=== PATIENT | female | born 1950 | race Caucasian/White ===

== ENCOUNTER 2017-12-15 19:45 | Inpatient (IN) | payer OTHER, MEDICARE ==
[~2017-12-15] VITALS: Ht 165.1 cm; Wt 95.0 kg
--- NOTE | 2017-12-15 20:26 | PD ---
HPI Chief Complaint: Reynolds act Time Seen by Provider: 20:09 Travel History International Travel<30 days: No Contact w/Intl Traveler<30days: No Traveled to known affect area: No History of Present Illness HPI 67-year-old female who was Reynolds acted and brought in for evaluation. Patient was found by social insurance administrator from [facility] at home, unable to care for herself. Patient has no complaint now. Patient does not know why she is in the emergency room. No available past medical history at this point. Unknown current medication. [facility] Social History Tobacco Use: No Allergies-Medications (Allergen,Severity, Reaction): Coded Allergies: No Allergy Information Available (Unverified , 12/15/17) DEMENTIA Reported Meds & Prescriptions Reported Meds & Active Scripts Active Active Prescriptions or Reported Medications Unobtainable Review of Systems General / Constitutional: No: Fever Eyes: No: Visual changes HENT: No: Headaches Cardiovascular: No: Chest Pain or Discomfort Respiratory: No: Shortness of Breath Gastrointestinal: No: Abdominal Pain Genitourinary: No: Dysuria Musculoskeletal: No: Pain Skin: No Rash Neurologic: No: Weakness Psychiatric: No: Depression Endocrine: No: Polydipsia Hematologic/Lymphatic: No: Easy Bruising Physical Exam Narrative GENERAL: Well-nourished, well-developed patient. SKIN: Focused skin assessment warm/dry. HEAD: Normocephalic. EYES: No scleral icterus. No injection or drainage. NECK: Supple, trachea midline. No JVD or lymphadenopathy. CARDIOVASCULAR: Regular rate and rhythm without murmurs, gallops, or rubs. RESPIRATORY: Breath sounds equal bilaterally. No accessory muscle use. GASTROINTESTINAL: Abdomen soft, non-tender, nondistended. MUSCULOSKELETAL: No cyanosis, or edema. BACK: Nontender without obvious deformity. No CVA tenderness. Patient is Neurologic exam: Patient is awake and alert. Patient knows her name, know the president's name, states that the year is 2001. Patient knows she is in the hospital. Patient moves all extremities well. No obvious focal neurological deficit. Data Data Last Documented VS Vital Signs Date Time Temp Pulse Resp B/P (MAP) Pulse Ox O2 Delivery O2 Flow Rate FiO2 12/15/17 20:35 98.0 65 16 198/84 (122) 98 Orders Orders Complete Blood Count With Diff (12/15/17 20:17) Comprehensive Metabolic Panel (12/15/17 20:17) Thyroid Stimulating Hormone (12/15/17 20:17) Urinalysis - C+S If Indicated (12/15/17 20:17) Psych Screen (12/15/17 20:17) Urine Culture (12/15/17 20:30) Potassium Chloride (Kcl) (12/15/17 21:30) Sulfamet-Trimeth Ds 800-160 Mg (Bactrim (12/15/17 21:30) Labs Laboratory Tests Test 12/15/17 20:30 White Blood Count 7.8 TH/MM3 Red Blood Count 4.61 MIL/MM3 Hemoglobin 14.4 GM/DL Hematocrit 40.1 % Mean Corpuscular Volume 86.9 FL Mean Corpuscular Hemoglobin 31.2 PG Mean Corpuscular Hemoglobin Concent 35.9 % Red Cell Distribution Width 13.4 % Platelet Count 253 TH/MM3 Mean Platelet Volume 8.6 FL Neutrophils (%) (Auto) 73.0 % Lymphocytes (%) (Auto) 15.6 % Monocytes (%) (Auto) 5.0 % Eosinophils (%) (Auto) 4.9 % Basophils (%) (Auto) 1.5 % Neutrophils # (Auto) 5.7 TH/MM3 Lymphocytes # (Auto) 1.2 TH/MM3 Monocytes # (Auto) 0.4 TH/MM3 Eosinophils # (Auto) 0.4 TH/MM3 Basophils # (Auto) 0.1 TH/MM3 CBC Comment DIFF FINAL Differential Comment Urine Color YELLOW Urine Turbidity HAZY Urine pH 5.5 Urine Specific [place] 1.024 Urine Protein TRACE mg/dL Urine Glucose (UA) NEG mg/dL Urine Ketones NEG mg/dL Urine Occult Blood NEG Urine Nitrite POS Urine Bilirubin NEG Urine Urobilinogen 2.0 MG/DL Urine Leukocyte Esterase LARGE Urine RBC 6 /hpf Urine WBC 23 /hpf Urine Squamous Epithelial Cells 4 /hpf Urine Bacteria MANY /hpf Urine Mucus FEW /lpf Microscopic Urinalysis Comment CULTURE INDICATED Blood Urea Nitrogen 17 MG/DL Creatinine 1.19 MG/DL Random Glucose 110 MG/DL Total Protein 8.5 GM/DL Albumin 4.1 GM/DL Calcium Level 9.6 MG/DL Alkaline Phosphatase 59 U/L Aspartate Amino Transf (AST/SGOT) 10 U/L Alanine Aminotransferase (ALT/SGPT) 18 U/L Total Bilirubin 0.6 MG/DL Sodium Level 139 MEQ/L Potassium Level 3.2 MEQ/L Chloride Level 102 MEQ/L Carbon Dioxide Level 31.8 MEQ/L Anion Gap 5 MEQ/L Estimat Glomerular Filtration Rate 45 ML/MIN Thyroid Stimulating Hormone 3rd Gen 3.460 uIU/ML MDM Medical Decision Making Medical Screen Exam Complete: Yes Emergency Medical Condition: Yes Interpretation(s) 21:28 PM. CBC within normal limits. Potassium 3.2. Creatinine 1.19. GFR 45. UA positive for WBC and bacteria. Differential Diagnosis Differential diagnosis including dementia, Alzheimer's disease, TIA, CVA, electrolyte imbalance. Narrative Course 67-year-old female was Reynolds acted and brought in for evaluation. Patient was deemed not to be able to care of herself at home. Bactrim DS 1 tablet p.o. given. KCl 40 mEq p.o. given. 21:32 PM. Patient is medically cleared for psychiatric evaluation and disposition. Diagnosis Primary Impression: UTI (urinary tract infection) Qualified Codes: N30.00 - Acute cystitis without hematuria Additional Impression: Hypokalemia Scripts Unable to Obtain Active Prescriptions or Reported Meds Alvin Benitez MD Dec 15, 2017 20:26
[2017-12-15 20:35] VITALS: BP 198/84; PULSE 65; PULSE 87; RESP 16; TEMP 98; O2SAT 98
[2017-12-15 20:46] LABS: BACTERIA, URINE MANY /hpf; BILIRUBIN, URINE NEG (NEG); BLOOD, URINE NEG (NEG); GLUCOSE,URINE NEG (NEG); KETONE, URINE NEG (NEG); MUCUS URINE FEW /lpf (OCC); NITRITE,URINE POS (NEG); PH, URINE 5.5 (5.0-8.5); SQUAMOUS EPITHELIAL CELL URINE 4 /hpf (0-5); URINE COLOR YELLOW (YELLW/STRAW); URINE LEUKOCYTE ESTERASE LARGE (NEG)
[2017-12-15 20:53] LABS: AUTOMATED NEUTROPHIL # 5.7 TH/MM3 (1.8-7.7); BASOPHIL # 0.1 TH/MM3 (0-0.2); BASOPHIL % 1.5 % (0.0-2.0); EOSINOPHIL # 0.4 TH/MM3 (0-0.4); EOSINOPHIL % 4.9 % (0.0-4.0); HEMATOCRIT 40.1 % (35.0-46.0); HEMOGLOBIN 14.4 GM/DL (11.6-15.3); LYMPH % 15.6 % (9.0-44.0); LYMPHOCYTE # 1.2 TH/MM3 (1.0-4.8); MEAN CELL VOLUME 86.9 FL (80.0-100.0); MEAN CORPUSCULAR HEMOGLOBIN 31.2 PG (27.0-34.0); MEAN CORPUSCULAR HGB CONC 35.9 % (32.0-36.0); MEAN PLATELET VOLUME 8.6 FL (7.0-11.0); MONOCYTE # 0.4 TH/MM3 (0-0.9); PLATELET COUNT 253 TH/MM3 (150-450); RED BLOOD COUNT 4.61 MIL/MM3 (4.00-5.30); RED CELL DISTRIBUTION WIDTH 13.4 % (11.6-17.2); WHITE BLOOD COUNT 7.8 TH/MM3 (4.0-11.0)
[2017-12-15 20:58] LABS: ALBUMIN 4.1 GM/DL (3.4-5.0); AST (GOT) 10 U/L (15-37); BICARBONATE 31.8 MEQ/L (21.0-32.0); BLOOD UREA NITROGEN 17 MG/DL (7-18); CALCIUM 9.6 MG/DL (8.5-10.1); CHLORIDE 102 MEQ/L (98-107); CREATININE 1.19 MG/DL (0.50-1.00); GLOMERULAR FILTRATION RATE 45 ML/MIN (>89); GLUCOSE,RANDOM 110 MG/DL (74-106); SODIUM (NA) 139 MEQ/L (136-145)
[2017-12-15 20:59] LABS: ALT (GPT) 18 U/L (10-53)
[2017-12-15 21:09] LABS: ALKALINE PHOSPHATASE 59 U/L (45-117); TOTAL BILIRUBIN ADULT 0.6 MG/DL (0.2-1.0); TOTAL PROTEIN 8.5 GM/DL (6.4-8.2)
[2017-12-15] MEDS ORDERED: POTASSIUM CHLORIDE 20 MEQ CONTROLLED RELEASE TAB PO ONE (21:30)
[2017-12-15] MEDS ORDERED: SULFAMETHOXAZOLE-TRIMETHOPRIM DS 800-160 MG TAB PO ONE (21:30)
[2017-12-16 07:30] VITALS: BP 180/77; PULSE 69; RESP 19; O2SAT 97
[2017-12-16 13:00] VITALS: BP 177/87; PULSE 72; RESP 20; O2SAT 97
--- NOTE | 2017-12-16 19:11 | PD ---
History of Present Illness Chief Complaint: Psychiatric Symptoms Time Seen by Provider: 18:30 Travel History International Travel<30 Days: No Contact w/Intl Traveler<30days: No Known affected area: No Legal Status Legal Status: Reynolds Act Reynolds Act Signed By: Andry Conte History of Present Illness: History of Present Illness HPI 67-year-old female with unknown psychiatric history who presents to ED under a Reynolds act initiated by law enforcement. The Reynolds act states that the police responded to a call in reference to Reynolds act. The officer states he spoke with the [facility] employee who advised him she arrived on seen in reference to a welfare check and that she believes Tatum was not taking her prescribed medication. The [facility] employee advised Tatum has early stages of Alzheimer's and is unable to care for herself. Electronic medical record is reviewed. No previous contact with [facility] psychiatry Department. The patient has been monitored in secure environment with no behavioral dysregulation. The patient response to her name but is unable to answer any questions. She has significant problems with word finding. Not oriented to time or place. She cannot tell me why she is in the emergency room. Unable to provide any information about her history or medications. Patient is obviously presenting symptoms of dementia. The patient does not appear to be responding to internal stimuli, not manic. Does not present any objective symptoms of depression. She has verbalized no suicidal or homicidal ideation. The patient does not take criteria for Reynolds act. Psychiatric History Psychiatric History Hx Psychiatric Treatment: Unable to obtain Social History Apparently was living at home with her mother. Hx Alcohol Use: Yes (RARELY) Hx Tobacco Use: No Hx Substance Use: No Family Psychiatric History Unable to obtain Allergies-Medications (Allergen,Severity, Reaction): Coded Allergies: No Allergy Information Available (Unverified , 12/15/17) DEMENTIA Reported Meds & Prescriptions Reported Meds & Active Scripts Active Active Prescriptions or Reported Medications Unobtainable Review of Systems ROS Limitations: Poor Historian Mental Status Examination Appearance: Appropriate (dressed in [facility] with fair hygiene) Consciousness: Alert Orientation: Person Motor Activity: Normal gait Speech: Other (marked difficulty with words) Fund of Knowledge: Poor Attention and Concentration: Easily Distracted Memory: Impaired Mood: Appropriate Affect: Appropriate Thought Process & Associations: Other (fragmented.) Thought Content: Appropriate Hallucination Type: None Delusion Type: None Suicidal Ideation: No Suicidal Plan: No Suicidal Intention: No Homicidal Ideation: No Homicidal Plan: No Homicidal Intention: No Insight: Poor Judgment: Poor MDM Medical Decision Making Medical Record Reviewed: Yes Assessment/Plan 67-year-old female with reported history of dementia who was found in her home with her mother who also has dementia by a [facility] employee. The [facility] employee determined that the patient was unable to care for herself and called the police and the patient was placed under Reynolds act. At this time there is no history available and the patient cannot provide a cogent history. She has been monitored and has not been agitated, does not appear to be internally stimulated, does not appear significantly depressed, does not appear manic or hypomanic. This patient does not meet criteria for Reynolds act at this time and will not benefit from inpatient psychiatric treatment. However due to her cognitive impairment secondary to dementia she is unable to care for herself and requires placement. Case management will be involved to assist with placement. Her mother is also here at the hospital and [facility] is attempting placement for her as well. The Reynolds act is lifted Orders Orders Complete Blood Count With Diff (12/15/17 20:17) Comprehensive Metabolic Panel (12/15/17 20:17) Thyroid Stimulating Hormone (12/15/17 20:17) Urinalysis - C+S If Indicated (12/15/17 20:17) Psych Screen (12/15/17 20:17) Urine Culture (12/15/17 20:30) Potassium Chloride (Kcl) (12/15/17 21:30) Sulfamet-Trimeth Ds 800-160 Mg (Bactrim (12/15/17 21:30) Diet Regular Basic (12/16/17 Breakfast) Diet Regular Basic (12/16/17 Lunch) Results Vital Signs Date Time Temp Pulse Resp B/P (MAP) Pulse Ox O2 Delivery O2 Flow Rate FiO2 12/16/17 13:00 72 20 177/87 (117) 97 Room Air 12/16/17 07:30 69 19 180/77 (111) 97 Room Air 12/15/17 20:35 98.0 65 16 198/84 (122) 98 Laboratory Tests Test 2/17/18 20:30 White Blood Count 7.8 Red Blood Count 4.61 Hemoglobin 14.4 Hematocrit 40.1 Mean Corpuscular Volume 86.9 Mean Corpuscular Hemoglobin 31.2 Mean Corpuscular Hemoglobin Concent 35.9 Red Cell Distribution Width 13.4 Platelet Count 253 Mean Platelet Volume 8.6 Neutrophils (%) (Auto) 73.0 Lymphocytes (%) (Auto) 15.6 Monocytes (%) (Auto) 5.0 Eosinophils (%) (Auto) 4.9 Basophils (%) (Auto) 1.5 Neutrophils # (Auto) 5.7 Lymphocytes # (Auto) 1.2 Monocytes # (Auto) 0.4 Eosinophils # (Auto) 0.4 Basophils # (Auto) 0.1 CBC Comment DIFF FINAL Differential Comment Urine Color YELLOW Urine Turbidity HAZY Urine pH 5.5 Urine Specific [place] 1.024 Urine Protein TRACE Urine Glucose (UA) NEG Urine Ketones NEG Urine Occult Blood NEG Urine Nitrite POS Urine Bilirubin NEG Urine Urobilinogen 2.0 Urine Leukocyte Esterase LARGE Urine RBC 6 Urine WBC 23 Urine Squamous Epithelial Cells 4 Urine Bacteria MANY Urine Mucus FEW Microscopic Urinalysis Comment CULTURE INDICATED Blood Urea Nitrogen 17 Creatinine 1.19 Random Glucose 110 Total Protein 8.5 Albumin 4.1 Calcium Level 9.6 Alkaline Phosphatase 59 Aspartate Amino Transf (AST/SGOT) 10 Alanine Aminotransferase (ALT/SGPT) 18 Total Bilirubin 0.6 Sodium Level 139 Potassium Level 3.2 Chloride Level 102 Carbon Dioxide Level 31.8 Anion Gap 5 Estimat Glomerular Filtration Rate 45 Thyroid Stimulating Hormone 3rd Gen 3.460 Date/Time Source Procedure Growth Status 12/15/17 20:30 Urine Random Urine Urine Culture - Preliminary Gram Negative Oni Resulted Diagnosis Primary Impression: UTI (urinary tract infection) Additional Impressions: Hypokalemia Dementia Psychiatrically Cleared: Yes Prescriptions Unable to Obtain Active Prescriptions or Reported Meds Problem Qualifiers Primary Impression: UTI (urinary tract infection) Qualified Codes: N30.00 - Acute cystitis without hematuria Additional Impressions: Dementia Qualified Codes: F03.90 - Unspecified dementia without behavioral disturbance Yuliana Do Dec 16, 2017 19:11
--- NOTE | 2017-12-16 21:33 | PD ---
Physical Exam Narrative This is an addendum to previous dictation. Patient was seen by psychiatric team and Reynolds act was lifted. Patient needs placement secondary to cognitive problem. Data Data Last Documented VS Vital Signs Date Time Temp Pulse Resp B/P (MAP) Pulse Ox O2 Delivery O2 Flow Rate FiO2 12/16/17 13:00 72 20 177/87 (117) 97 Room Air 12/15/17 20:35 98.0 Orders Orders Complete Blood Count With Diff (12/15/17 20:17) Comprehensive Metabolic Panel (12/15/17 20:17) Thyroid Stimulating Hormone (12/15/17 20:17) Urinalysis - C+S If Indicated (12/15/17 20:17) Psych Screen (12/15/17 20:17) Urine Culture (12/15/17 20:30) Potassium Chloride (Kcl) (12/15/17 21:30) Sulfamet-Trimeth Ds 800-160 Mg (Bactrim (12/15/17 21:30) Diet Regular Basic (12/16/17 Breakfast) Diet Regular Basic (12/16/17 Lunch) Admit Order (Ed Use Only) (12/16/17 21:33) Labs Laboratory Tests Test 12/15/17 20:30 White Blood Count 7.8 TH/MM3 Red Blood Count 4.61 MIL/MM3 Hemoglobin 14.4 GM/DL Hematocrit 40.1 % Mean Corpuscular Volume 86.9 FL Mean Corpuscular Hemoglobin 31.2 PG Mean Corpuscular Hemoglobin Concent 35.9 % Red Cell Distribution Width 13.4 % Platelet Count 253 TH/MM3 Mean Platelet Volume 8.6 FL Neutrophils (%) (Auto) 73.0 % Lymphocytes (%) (Auto) 15.6 % Monocytes (%) (Auto) 5.0 % Eosinophils (%) (Auto) 4.9 % Basophils (%) (Auto) 1.5 % Neutrophils # (Auto) 5.7 TH/MM3 Lymphocytes # (Auto) 1.2 TH/MM3 Monocytes # (Auto) 0.4 TH/MM3 Eosinophils # (Auto) 0.4 TH/MM3 Basophils # (Auto) 0.1 TH/MM3 CBC Comment DIFF FINAL Differential Comment Urine Color YELLOW Urine Turbidity HAZY Urine pH 5.5 Urine Specific [place] 1.024 Urine Protein TRACE mg/dL Urine Glucose (UA) NEG mg/dL Urine Ketones NEG mg/dL Urine Occult Blood NEG Urine Nitrite POS Urine Bilirubin NEG Urine Urobilinogen 2.0 MG/DL Urine Leukocyte Esterase LARGE Urine RBC 6 /hpf Urine WBC 23 /hpf Urine Squamous Epithelial Cells 4 /hpf Urine Bacteria MANY /hpf Urine Mucus FEW /lpf Microscopic Urinalysis Comment CULTURE INDICATED Blood Urea Nitrogen 17 MG/DL Creatinine 1.19 MG/DL Random Glucose 110 MG/DL Total Protein 8.5 GM/DL Albumin 4.1 GM/DL Calcium Level 9.6 MG/DL Alkaline Phosphatase 59 U/L Aspartate Amino Transf (AST/SGOT) 10 U/L Alanine Aminotransferase (ALT/SGPT) 18 U/L Total Bilirubin 0.6 MG/DL Sodium Level 139 MEQ/L Potassium Level 3.2 MEQ/L Chloride Level 102 MEQ/L Carbon Dioxide Level 31.8 MEQ/L Anion Gap 5 MEQ/L Estimat Glomerular Filtration Rate 45 ML/MIN Thyroid Stimulating Hormone 3rd Gen 3.460 uIU/ML MDM Supervised Visit with DOV: Yes Narrative Course Patient was cleared by medical team. Patient will clear by psychiatric team and Reynolds act was lifted. Patient will be admitted for placement. Diagnosis Primary Impression: UTI (urinary tract infection) Qualified Codes: N30.00 - Acute cystitis without hematuria Additional Impressions: Dementia Qualified Codes: F03.90 - Unspecified dementia without behavioral disturbance Hypokalemia Admitting Information Admitting Physician Requests: Observation Scripts Unable to Obtain Active Prescriptions or Reported Meds Alvin Benitez MD Dec 16, 2017 21:33
[2017-12-16 21:53] VITALS: BP 168/66; PULSE 68; RESP 20; TEMP 98; O2SAT 97
[2017-12-16] MEDS ORDERED: SODIUM CHLOR 0.9% 1000 ML INJ 1,000 ML IV SCH (22:42)
[2017-12-16] MEDS ORDERED: SODIUM CHLORIDE 0.9% FLUSH 10 ML FLUSH IV FLUSH PRN (22:45)
[2017-12-16] MEDS ORDERED: NALOXONE HCL 0.4 MG/ML AMP IV PUSH PRN (22:45)
[2017-12-16] MEDS ORDERED: ONDANSETRON HCL 4 MG/2 ML VIAL IVP PRN (22:45)
[2017-12-16] MEDS ORDERED: ACETAMINOPHEN 325 MG TAB PO PRN (22:45)
--- NOTE | 2017-12-16 23:06 | HHI.HP ---
[facility] Service [facility] Physician Unknown Admission Diagnosis UTI. Dementia. Hypokalemia. Diagnoses: Travel History International Travel<30 Days: No Contact w/Intl Traveler <30 Da: No Traveled to Known Affected Are: No History of Present Illness 67-year-old female initially brought to the emergency department under Reynolds act for evaluation. Patient was found by a social work therapist from [facility] at home, unable to care for herself. She reportedly lives with her mother who is also unable to care for herself. The patient has no complaints at this time. Her Reynolds act was lifted and she will need placement. The patient is oriented only to self and can tell me that she is in the state of [place]. She is not aware of city, current location or time/date. She cannot remember if she takes any medications and cannot provide any additional information. Review of Systems ROS Limitations: Clinical Condition Except as stated in HPI: all other systems reviewed are Neg Denies fever or chills Denies blurry vision, otorrhea, rhinorrhea Denies sore throat and cough No chest pain, palpitations No shortness of breath or wheezing No abdominal pain Denies constipation/diarrhea/nausea/vomiting Denies muscle pain Denies focal weakness No rashes Past Family Social History Past Medical History Unable to obtain Past Surgical History Unable to obtain Reported Medications Reported Meds & Active Scripts Active Active Prescriptions or Reported Medications Unobtainable Allergies: Coded Allergies: No Allergy Information Available (Unverified , 12/15/17) DEMENTIA Family History Patient does not know Social History Denies alcohol, tobacco and illicit drugs Physical Exam Vital Signs Vital Signs Date Time Temp Pulse Resp B/P (MAP) Pulse Ox O2 Delivery O2 Flow Rate FiO2 12/16/17 21:53 98.0 68 20 168/66 (100) 97 Room Air 12/16/17 13:00 72 20 177/87 (117) 97 Room Air 12/16/17 07:30 69 19 180/77 (111) 97 Room Air Physical Exam GENERAL: female lying in bed SKIN: No rashes, ecchymoses or lesions. Cool and dry. HEAD: Atraumatic. Normocephalic. No temporal or scalp tenderness. EYES: Pupils equal round and reactive. Extraocular motions intact. No scleral icterus. No injection or drainage. ENT: Nose without bleeding, purulent drainage or septal hematoma. Throat without erythema, tonsillar hypertrophy or exudate. Uvula midline. Airway patent. NECK: Trachea midline. No JVD or lymphadenopathy. Supple, nontender, no meningeal signs. CARDIOVASCULAR: Regular rate and rhythm without murmurs, gallops, or rubs. RESPIRATORY: Clear to auscultation. Breath sounds equal bilaterally. No wheezes , rales, or rhonchi. GASTROINTESTINAL: Abdomen soft, non-tender, nondistended. No hepato-splenomegaly , or palpable masses. No guarding. MUSCULOSKELETAL: Extremities without clubbing, cyanosis, or edema. No joint tenderness, effusion, or edema noted. No calf tenderness. NEUROLOGICAL: Awake and alert. Cranial nerves II through XII intact. Motor and sensory grossly within normal limits. Normal speech. A&O 1, to self only. Laboratory Date/Time Source Procedure Growth Status 12/15/17 20:30 Urine Random Urine Urine Culture - Preliminary Gram Negative Oni Resulted Result Diagram: 12/15/17202912/15/172029 Caprini VTE Risk Assessment Caprini VTE Risk Assessment: Mod/High Risk (score >= 2) Caprini Risk Assessment Model Point Value = 1 Point Value = 2 Point Value = 3 Point Value = 5 Age 41-60 Minor surgery BMI > 25 kg/m2 Swollen legs Varicose veins or History of unexplained or recurrent spontaneous Oral contraceptives or hormone replacement Sepsis (< 1 month) Serious lung disease, including pneumonia (< 1 month) Abnormal pulmonary function Acute myocardial infarction Congestive heart failure (< 1 month) History of inflammatory bowel disease Medical patient at bed rest Age 61-74 Arthroscopic surgery Major open surgery (> 45 min) Laparoscopic surgery (> 45 min) Malignancy Confined to bed (> 72 hours) Immobilizing plaster cast Central venous access Age >= 75 History of VTE Family history of VTE Factor V Leiden Prothrombin [id number] Lupus anticoagulant Anticardiolipin antibodies Elevated serum homocysteine Heparin-induced thrombocytopenia Other congenital or acquired thrombophilia Stroke (< 1 month) Elective arthroplasty Hip, pelvis, or leg fracture Acute spinal cord injury (< 1 month) Prophylaxis Regimen Total Risk Factor Score Risk Level Prophylaxis Regimen 0-1 Low Early ambulation 2 Moderate Order ONE of the following: *Sequential Compression Device (SCD) *Heparin 5000 units SQ BID 3-4 Higher Order ONE of the following medications: *Heparin 5000 units SQ TID *Enoxaparin/Lovenox 40 mg SQ daily (WT < 150 kg, CrCl > 30 mL/min) *Enoxaparin/Lovenox 30 mg SQ daily (WT < 150 kg, CrCl > 10-29 mL/min) *Enoxaparin/Lovenox 30 mg SQ BID (WT < 150 kg, CrCl > 30 mL/min) AND/OR *Sequential Compression Device (SCD) 5 or more Highest Order ONE of the following medications: *Heparin 5000 units SQ TID (Preferred with Epidurals) *Enoxaparin/Lovenox 40 mg SQ daily (WT < 150 kg, CrCl > 30 mL/min) *Enoxaparin/Lovenox 30 mg SQ daily (WT < 150 kg, CrCl > 10-29 mL/min) *Enoxaparin/Lovenox 30 mg SQ BID (WT < 150 kg, CrCl > 30 mL/min) AND *Sequential Compression Device (SCD) Assessment and Plan Assessment and Plan Assessment/plan: 1. Urinary tract infection UA consistent with UTI with large leukocyte esterase, 23 WBCs, many bacteria, nitrite positive Urine culture pending Rocephin 2. Unable to care for self Reynolds act lifted Case management consulted to assist with placement 3. Hypokalemia Status post by mouth repletion Follow-up [facility] Heart healthy diet Electrolytes: As above Peggy Cordon MD Dec 16, 2017 23:06
[2017-12-16] MEDS ORDERED: POTASSIUM CHLORIDE 20 MEQ CONTROLLED RELEASE TAB PO ONE (23:15)
[2017-12-17] VITALS (9 sets, daily range): BP systolic 133–201; BP diastolic 68–88; PULSE 59–91; RESP 18; TEMP 97.6–98.8; O2SAT 91–99
[2017-12-17] MEDS ORDERED: cefTRIAXone INJ 1,000 MG in SODIUM CHLORIDE 0.9% INJ 100 ML IV SCH ×2
[2017-12-17 05:18] LABS: AUTOMATED NEUTROPHIL # 4.1 TH/MM3 (1.8-7.7); BASOPHIL # 0.1 TH/MM3 (0-0.2); BASOPHIL % 1.2 % (0.0-2.0); EOSINOPHIL # 0.3 TH/MM3 (0-0.4); EOSINOPHIL % 5.8 % (0.0-4.0); HEMATOCRIT 40.5 % (35.0-46.0); HEMOGLOBIN 13.9 GM/DL (11.6-15.3); LYMPH % 19.1 % (9.0-44.0); LYMPHOCYTE # 1.2 TH/MM3 (1.0-4.8); MEAN CORPUSCULAR HEMOGLOBIN 30.2 PG (27.0-34.0); MEAN CORPUSCULAR HGB CONC 34.4 % (32.0-36.0); MEAN PLATELET VOLUME 8.4 FL (7.0-11.0); MONO % 5.4 % (0.0-8.0); MONOCYTE # 0.3 TH/MM3 (0-0.9); NEUT % 68.5 % (16.0-70.0); PLATELET COUNT 241 TH/MM3 (150-450); RED CELL DISTRIBUTION WIDTH 13.5 % (11.6-17.2)
[2017-12-17 05:45] LABS: BICARBONATE 27.2 MEQ/L (21.0-32.0); CALCIUM 9.2 MG/DL (8.5-10.1); CREATININE 1.02 MG/DL (0.50-1.00)
[2017-12-17] MEDS: HEPARIN SODIUM - SQ 10,000 UNITS/ML VIAL SQ SCH ×3 (06:28→22:05)
[2017-12-17] MEDS ORDERED: ENALAPRILAT 1.25 MG/ML VIAL IV PUSH PRN (08:15)
[2017-12-17] MEDS: SODIUM CHLORIDE 0.9% FLUSH 10 ML FLUSH IV FLUSH SCH ×2 (09:08→21:00)
[2017-12-17] MEDS: POTASSIUM CHLORIDE 10 MEQ CONTROLLED RELEASE TAB PO SCH ×2 (09:08→22:06)
[2017-12-17] MEDS: hydrALAZINE HCL 10 MG TAB PO PRN ×2 (09:08→15:46)
[2017-12-17 10:17] LABS: MAGNESIUM 2.1 MG/DL (1.5-2.5)
--- NOTE | 2017-12-17 12:35 | HHI.PR ---
Subjective Remarks Follow-up on patient with dementia, UTI. Patient seen and examined. Patient denies any complaints overnight. She denies any fever or chills. Denies any chest pain or shortness of breath. Denies any nausea, vomiting or abdominal pain. She denies any dysuria, urgency, frequency or hematuria. Oriented to self only. She is very preoccupied with getting home to her cats. Objective Vitals Vital Signs Date Time Temp Pulse Resp B/P (MAP) Pulse Ox O2 Delivery O2 Flow Rate FiO2 12/17/17 11:24 98.0 82 18 133/71 (91) 95 12/17/17 07:35 97.6 60 18 186/81 (116) 94 12/17/17 05:30 98.4 78 18 138/78 (98) 98 12/17/17 00:02 98.4 59 18 144/70 (94) 99 12/16/17 21:53 98.0 68 20 168/66 (100) 97 Room Air 12/16/17 13:00 72 20 177/87 (117) 97 Room Air I/O 12/16/17 12/16/17 12/16/17 12/17/17 12/17/17 12/17/17 07:00 15:00 23:00 07:00 15:00 23:00 Intake Total 480 ml 400 ml Balance 480 ml 400 ml Intake Oral 480 ml 400 ml Result Diagram: 12/17/17 0500 12/17/17 0500 Objective Remarks GENERAL: Well-developed well-nourished female. In no acute distress. Sitting up in bed eating breakfast. Awake and alert. SKIN: Cool and dry. HEAD: Atraumatic. Normocephalic. EYES: Pupils equal round and reactive. Extraocular motions intact. No scleral icterus. No injection or drainage. ENT: Nose without bleeding or purulent drainage. Airway patent. MMM. NECK: Trachea midline. CARDIOVASCULAR: Regular rate and rhythm without murmurs, gallops, or rubs. RESPIRATORY: Clear to auscultation. Breath sounds equal bilaterally. No wheezes , rales, or rhonchi. GASTROINTESTINAL: Abdomen soft, non-tender, nondistended. MUSCULOSKELETAL: Extremities without clubbing, cyanosis, or edema. NEUROLOGICAL: Awake and alert. Oriented to self only. Cranial nerves II through XII grossly intact. Motor and sensory grossly within normal limits. Nonfocal. Normal speech. Medications and IVs Current Medications Medications (Trade) Dose Ordered Sig/Yancy Route Start Time Stop Time Status Last Admin (NS Flush) 2 ml UNSCH PRN IV FLUSH 12/16/17 22:45 (NS Flush) 2 ml BID IV FLUSH 12/17/17 09:00 12/17/17 09:08 (Tylenol) 650 mg Q4H PRN PO 12/16/17 22:45 (Zofran Inj) 4 mg Q6H PRN IVP 12/16/17 22:45 (Narcan Inj) 0.4 mg UNSCH PRN IV PUSH 12/16/17 22:45 Ceftriaxone Sodium 1000 mg/ Sodium Chloride 100 ml @ 200 mls/hr Q24H IV 12/17/17 00:00 (Heparin Inj) 5,000 units Q8HR SQ 12/17/17 06:00 12/17/17 06:28 (KCl) 40 meq Q12HR PO 12/17/17 09:00 12/17/17 21:01 12/17/17 09:08 (Apresoline) 10 mg Q6HR PRN PO 12/17/17 08:15 12/17/17 09:08 (Vasotec Inj) 1.25 mg Q6H PRN IV PUSH 12/17/17 08:15 A/P Assessment and Plan 67-year-old female with dementia Urinary tract infection UA consistent with UTI with large leukocyte esterase, 23 WBCs, many bacteria, nitrite positive. Started on IV Rocephin. Urine culture with E Coli, pansensitive. Discontinue Rocephin. Start Macrobid BID. Unable to care for self Dementia Admitted under Reynolds act by the department of social services aide. Evaluated by psychiatry and reynolds act lifted. Consult Neurology, appreciate assistance TSH WNL. Obtain B12, folate level and check RPR. Obtain CT brain. Case management consulted to assist with placement Evaluated by PT, no needs. Hypokalemia Persistent despite by mouth repletion Repeat po repletion Mag level 2.1 Repeat BMP in am ERIKA Suspect due to poor oral intake Improving s/p IVF Avoid nephrotoxic agents Repeat BMP in am FEN Heart healthy diet Electrolytes: As above Heparin Discharge Planning Discharge pending placement and Neurology assessment/recommendations Edwige Ibarra Dec 17, 2017 12:35
[2017-12-17] MEDS ORDERED: NITROFURANTOIN MONOHYD MACROCR 100 MG CAP PO ONE (12:45)
--- NOTE | 2017-12-17 16:33 | RADRPT ---
EXAM DATE/TIME: 12/17/2017 16:10 [facility] COMPARISON: No previous studies available for comparison. INDICATIONS : Altered mental status RADIATION DOSE: 56.35 CTDIvol (mGy) MEDICAL HISTORY : Dementia. Diabetes SURGICAL HISTORY : None. ENCOUNTER: Initial ACUITY: 1 day PAIN SCALE: 4/10 LOCATION: cranial TECHNIQUE: Multiple contiguous axial images were obtained of the head. Using automated exposure control and adj ustment of the mA and/or kV according to patient size, radiation dose was kept as low as reasonably a chievable to obtain optimal diagnostic quality images. DICOM format image data is available electro nically for review and comparison. FINDINGS: The examination is abnormal demonstrating a left parasagittal convexity frontal lobe a heterogeneousl y dense mass which measures 5.4 x 4.5 cm. This causes 8 mm midline shift of the anterior ventricles and significant posterior displacement of the left frontal horn. There is moderate amount of surroun ding edema extending to the high convexity left frontal and mid convexity parietal region. No evidence of hemorrhage. No extra-axial fluid collections. There is evidence of downward herniati on with loss of the circumflex pontine cisterns and flattening of the lateral margins of the telencep halon and nasima. The posterior fossa structures are grossly intact. Wide windows for bony detail dem onstrate the calvarium to be intact. CONCLUSION: Greater than 5 cm left frontal mass with surrounding edema causing significant midline shift towards the right and downward transtentorial mass effect. Otis Huff MD on December 17, 2017 at 16:25 Board Certified Radiologist. This report was verified electronically.
[2017-12-17 17:13] LABS: HEMOGLOBIN A1C 5.6 % (4.3-6.0)
[2017-12-17] MEDS ORDERED: DEXAMETHASONE 4 MG TAB PO ONE (17:15)
[2017-12-17] MEDS ORDERED: NIFEdipine 30 MG SUSTAINED RELEASE TAB PO ONE (17:15)
[2017-12-17] MEDS: DEXAMETHASONE SOD PHOS 4 MG/ML VIAL IV PUSH SCH ×2 (17:59→22:06)
[2017-12-17 18:05] LABS: FOLATE 5.9 NG/ML (3.1-17.5)
[2017-12-17] MEDS: NITROFURANTOIN MONOHYD MACROCR 100 MG CAP PO SCH (19:19)
[2017-12-17] MEDS: SODIUM CHLOR 0.9% 1000 ML INJ 1,000 ML IV SCH (19:19)
[2017-12-17] MEDS ORDERED: IOHEXOL 350 MG/ML 10 ML VIAL (for RAD DIAG) IVCONTRAST ONE (20:31)
--- NOTE | 2017-12-17 20:53 | RADRPT ---
EXAM DATE/TIME: 12/17/2017 20:28 [facility] COMPARISON: CT BRAIN W/O CONTRAST, December 17, 2017, 16:10. INDICATIONS : Evaluate frontal mass. IV CONTRAST: 100 cc Omnipaque 350 (iohexol) IV RADIATION DOSE: 42.13 CTDIvol (mGy) MEDICAL HISTORY : Dementia. Diabetes mellitus type 1. SURGICAL HISTORY : None. ENCOUNTER: Initial ACUITY: 1 day PAIN SCALE: 4/10 LOCATION: cranial TECHNIQUE: Multiple contiguous axial images were obtained of the head. Using automated exposure control and adj ustment of the mA and/or kV according to patient size, radiation dose was kept as low as reasonably a chievable to obtain optimal diagnostic quality images. DICOM format image data is available electro nically for review and comparison. FINDINGS: Large anterior skull base and left frontal parafalcine brain mass showing intense somewhat heterogene ous contrast-enhancement. Moderate intra-axial vasogenic edema. Vascular displacement. No secondary s ites of abnormal contrast enhancement. CONCLUSION: Large frontal skull base and left parafalcine brain mass. Tommie Solis MD on December 17, 2017 at 20:48 Board Certified Radiologist. This report was verified electronically.
--- NOTE | 2017-12-18 05:28 | MB ---
cc: SYED RANDLE M.D. DATE OF CONSULTATION 12/17/2017 HISTORY OF PRESENT ILLNESS She is 67-year-old woman with history of dementia type symptoms. She is seen in the observation area the emergency room where I just saw her. I spoke to the nursing staff. The patient is unable to provide history. Apparently she lives with her mother and came in on a Reynolds Act evaluation. Reportedly graphic pre press trades worker or neighbors contacted the DCF as the patient was unable to care for herself. Apparently she has numerous animals in the house. The patient's CT brain just returned after I just saw her and I reviewed the study which shows a large frontal mass on the left causing left to right mass effect and some front to back/downward mass effect. NEUROLOGICAL EXAMINATION On exam the patient was awake, calm, cooperative, seemed to comprehend but has minimal ability to express herself. She was able to name some simple objects such as a pen but had difficulty in naming a wrist watch. She followed simple commands. She is probably able to count fingers bilaterally. The pupils were about same size and reactive. She walks without any major difficulty. Reflexes were 2+, plantar responses probably flexor bilaterally. ASSESSMENT 1. Large left frontal mass with substantial mass effect. 2. Urinary tract infection. 3. 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 RECOMMENDATIONS As discussed with the RN, neurosurgical consultation to be obtained MARY [facility]NE. The patient will need MRI brain, EEG can be done later on, probable decompression but will let neurosurgery determine the most appropriate line of care for the time-being. Thank you for asking us to participate in her care. MD JOE Basurto/CEDRIC /5:05 PM /5:21 AM
[2017-12-18 05:51] VITALS: BP 144/67; PULSE 65; RESP 18; TEMP 98.1; O2SAT 98
[2017-12-18] MEDS: HEPARIN SODIUM - SQ 10,000 UNITS/ML VIAL SQ SCH ×3 (06:14→22:17)
[2017-12-18] MEDS: DEXAMETHASONE SOD PHOS 4 MG/ML VIAL IV PUSH SCH ×3 (06:14→22:00)
--- NOTE | 2017-12-18 06:56 | MB ---
cc: JIGNA SMITH M.D. DATE OF CONSULTATION 12/17/2017 REASON FOR CONSULTATION Brain mass HISTORY OF PRESENT ILLNESS A 67-year-old female who was admitted on 12/15/2017 after she presented to the emergency room. She was Reynolds acted. She was found by a social research assistant at home unable to care for self. Patient is very confused and also has some word-finding difficulty and cannot relate any history to me. When asked if she has a headache, she says yes. When asked if she has any medical problems, she states some physical ailments, but cannot delineate any further. When asked if she has any numbness or paresthesias, she will give an ambivalent answer. She was found to have an E. coli urinary tract infection and has been on antibiotics. CT scan of the head obtained without contrast today reveals a large left cribriform plate skull base frontal mass which is on the left side. It also extends on the right side and measures about 5.5 cm in diameter with surrounding edema involving the left frontal lobe extending posteriorly with a mass effect on the ventricles and frontal horns. Neurosurgery has subsequently been consulted for further treatment recommendations. PAST MEDICAL HISTORY Unknown MEDICATIONS Unknown ALLERGIES Unknown SOCIAL HISTORY She is from [place]. She drinks alcohol occasionally. Does not smoke cigarettes. Unclear marital status or any relatives. The patient has no one at bedside. REVIEW OF SYSTEMS Cannot be obtained, very unreliable historian and with limited interaction. FAMILY HISTORY Unobtainable LABORATORY FINDINGS White blood cell count 6.0, hemoglobin 13.9, platelet count 241. Sodium 140, potassium 3.3, BUN 14, creatinine 1.02, glucose 120. Urinalysis positive for E-coli UTI. PHYSICAL EXAMINATION VITALS: Temperature 98.1, pulse 71, respiratory rate 18, blood pressure 201/88, oxygen saturation 97% on room air. HEAD: Normocephalic, atraumatic. NECK: Supple. CHEST; Clear bilaterally. HEART: Regular rate rhythm, normal S1 and S2. ABDOMEN: Soft, nontender, no hepatosplenomegaly. Positive bowel sounds. EXTREMITIES: No cyanosis or edema. SKIN: No rashes or pustules noted. GENERAL CONDITION: This is an elderly female, mildly obese, laying in bed in the ER observational area without any acute distress. NEUROLOGIC: She is awake, alert. Pupils are equal, reactive. Extraocular muscles intact. Face is symmetric. Tongue is midline. Speech, she verbalizes, but cannot relate much of a history and seems to have some word-finding difficulty. She will follow simple commands. Moves upper and lower extremities with relatively good strength. Negative Babinski. Light touch sensation intact bilaterally. IMPRESSION 1. Large left frontal skull base cribriform plate mass which extends into the right side to cross the midline along with surrounding vasogenic edema extending into the posterior frontal lobe with mass effect on the ventricles. This is concerning for likely meningioma, but other possibilities also need to be entertained. 2. Apparent progressive cognitive decline with dementia which could be related to this bifrontal large mass. 3. Unregulated hypertension. 4. Urinary tract infection. PLAN The patient will be started on Decadron for the vasogenic edema along with gastrointestinal stress ulcer prophylaxis. I would recommend an MRI scan of the brain with contrast to further evaluate this mass. Increase activity status as tolerated along with speech therapy for cognitive speech therapy involvement. DVT prophylaxis also recommended along with hypertension regulation. Further treatment plan will be outlined once we have the MRI scan undertaken and results reviewed. MD KEITH Lebron/THI /5:59 PM /6:34 AM
[2017-12-18 08:05] LABS: BICARBONATE 22.1 MEQ/L (21.0-32.0); CALCIUM 9.7 MG/DL (8.5-10.1); CREATININE 1.04 MG/DL (0.50-1.00)
[2017-12-18 08:14] VITALS: BP 157/66; PULSE 62; RESP 16; TEMP 97.8; O2SAT 95
[2017-12-18] MEDS: SODIUM CHLORIDE 0.9% FLUSH 10 ML FLUSH IV FLUSH SCH ×2 (09:00→21:00)
[2017-12-18] MEDS: NIFEdipine 30 MG SUSTAINED RELEASE TAB PO SCH (10:29)
[2017-12-18] MEDS: levETIRAcetam 500 MG TAB PO SCH ×2 (10:29→22:17)
[2017-12-18] MEDS: PANTOPRAZOLE SOD 40 MG DELAYED RELEASE TAB PO SCH (10:29)
[2017-12-18] MEDS: SODIUM CHLOR 0.9% 1000 ML INJ 1,000 ML IV SCH ×2 (10:34→20:40)
[2017-12-18] MEDS: NITROFURANTOIN MONOHYD MACROCR 100 MG CAP PO SCH ×2 (10:58→19:46)
--- NOTE | 2017-12-18 12:24 | HHI.PR ---
Subjective Remarks Follow up for dementia, UTI, brain mass. The patient is awake, alert, oriented to self only, states the year is 2016, states she is in [place]. She is able to tell me she lives with her mom and 14 cats (2 inside, 12 outside). She has trouble staying focused on questions asked and repeatedly states she needs to leave to go take care of her cats. She does not seem to understand that she has a new diagnosis of a brain mass. She denies any headache, visual changes, dizziness, lightheadedness, chest pain, shortness of breath, or abdominal complaints. Objective Vitals Vital Signs Date Time Temp Pulse Resp B/P (MAP) Pulse Ox O2 Delivery O2 Flow Rate FiO2 12/18/17 08:14 97.8 62 16 157/66 (96) 95 Manual Cuff/Auscultation 12/18/17 05:51 98.1 65 18 144/67 (92) 98 12/17/17 23:22 143/68 (93) 12/17/17 22:10 173/73 (106) 168/78 (108) 12/17/17 20:47 98.8 91 18 192/83 (119) 91 12/17/17 17:57 184/85 (118) 12/17/17 15:33 98.1 71 18 201/88 (125) 97 I/O 12/17/17 12/17/17 12/17/17 12/18/17 12/18/17 12/18/17 07:00 15:00 23:00 07:00 15:00 23:00 Intake Total 400 ml 480 ml Balance 400 ml 480 ml Intake Oral 400 ml 480 ml # Voids 3 Result Diagram: 12/17/17 0500 12/18/17 0615 Imaging Last Impressions Head CT 12/17/17 0000 Signed Impressions: Service Date/Time: Sunday, December 17, 2017 20:28 - CONCLUSION: Large frontal skull base and left parafalcine brain mass. Tommie Solis MD Objective Remarks GENERAL: Well-nourished, well-developed female patient in [facility]. SKIN: Warm and dry. No rash. HEENT: Normocephalic. Atraumatic.Pupils equal and round. Mucous membranes pink and moist. CARDIOVASCULAR: Regular rate and rhythm. S1, S2 noted. No murmur appreciated. RESPIRATORY: No accessory muscle use. Clear to auscultation. Breath sounds equal bilaterally. GASTROINTESTINAL: Abdomen soft, non-tender, nondistended. Normoactive bowel sounds x4. MUSCULOSKELETAL: No obvious deformities. Extremities without clubbing, cyanosis , or edema. NEUROLOGICAL: Awake and alert, oriented to self only. No obvious cranial nerve deficits. Motor grossly within normal limits. Normal speech. PSYCHIATRIC: Flat affect; insight and judgment limited. Medications and IVs Current Medications Medications (Trade) Dose Ordered Sig/Yancy Route Start Time Stop Time Status Last Admin (NS Flush) 2 ml UNSCH PRN IV FLUSH 12/16/17 22:45 (NS Flush) 2 ml BID IV FLUSH 12/17/17 09:00 12/17/17 09:08 (Tylenol) 650 mg Q4H PRN PO 12/16/17 22:45 (Zofran Inj) 4 mg Q6H PRN IVP 12/16/17 22:45 (Narcan Inj) 0.4 mg UNSCH PRN IV PUSH 12/16/17 22:45 (Heparin Inj) 5,000 units Q8HR SQ 12/17/17 06:00 12/18/17 06:14 (Apresoline) 10 mg Q6HR PRN PO 12/17/17 08:15 12/17/17 15:46 (Vasotec Inj) 1.25 mg Q6H PRN IV PUSH 12/17/17 08:15 (Macrobid) 100 mg BIDPC PO 12/17/17 18:00 12/18/17 10:58 (Decadron Inj) 4 mg Q8HR IV PUSH 12/17/17 17:00 12/18/17 06:14 (Procardia Xl) 30 mg DAILY PO 12/18/17 09:00 12/18/17 10:29 Sodium Chloride 1,000 ml @ 75 mls/hr [id number] IV 12/17/17 18:00 12/18/17 10:34 (Protonix) 40 mg DAILY PO 12/18/17 09:00 12/18/17 10:29 (Keppra) 500 mg Q12HR PO 12/18/17 09:00 12/18/17 10:29 A/P Assessment and Plan 67-year-old female with dementia, presented under Reynolds Act from [facility] for poor living conditions and unable to care for self Brain Mass: Head CT images reviewed, shows >5cm left frontal mass with surrounding edema causing significant midline shift towards the right and downward transtentorial mass effect -Consulted neurosurgery -Brain MRI/MRA/MRV ordered -Continue on IV Decadron for edema -Started on Keppra 500mg bid for seizure prophylaxis -Neuro checks, Seizure precautions -Consult palliative care to assist with det -Consult psychiatry to eval capacity, patient does not appear to understand diagnosis and unable to make medical decisions -Addendum 1430hrs: Had long discussion with patient's sister Karla Keller on cell at . She is packing up to come down to [place] and should be here by tomorrow morning. Discussed diagnosis and plan as above. Also informed Karla that patient keeps trying to elope from the hospital and she was found earlier in the parking lot. I do not feel it is safe for this patient to elope from the hospital. She does not understand consequences of leaving the hospital AMA. She is oriented to self only. Discussed with sister Karla who agrees with restraints or any form necessary to keep this patient from leaving the hospital. However currently the sister Karla does not have POA. Patient seen and examined again with Dr. Sanchez who agrees patient does not have capacity to make her medical decisions at this point and recommended Reynolds Act as the patient is currently a harm to herself if she were to elope from the hospital. Reynolds Act placed. Urinary tract infection: UA consistent with UTI with large leukocyte esterase, 23 WBCs, many bacteria, nitrite positive. -Urine culture with E Coli, pansensitive. -Will complete 7 day course of Macrobid BID (stop date 12/23) Dementia, Unable to care for self: Admitted under Reynolds act by the department of protective services social worker. B12, folate, TSH all wnl. RPR negative. -Evaluated by psychiatry upon arrival and reynolds act lifted. -Consult Neurology, appreciate assistance -Case management consulted to assist with placement Hypokalemia: Persistent despite by mouth repletion -Given multiple doses of po KCl -Mag level 2.1 -Repeat BMP shows improvement with K 4.8 -Monitor ERIKA: Suspect due to poor oral intake -Improving s/p IVF -Avoid nephrotoxic agents -Repeat BMP shows improvement with Cr 1.04 DVT Prophylaxis: Heparin Attending Statement I returned to the patient's room with Vivian Maldonado PA-C as the patient was attempting to elope from the hospital for the second time today. She is confused ; oriented only to self. She does not understand her diagnosis and in my opinion is unable to make medical decisions for herself at this time. Reynolds Act initiated for the patient's safety, as she is at high risk of unintentional self harm if she were to leave the hospital at this time. Meghan Maldonado PA-C Dec 18, 2017 12:24 Jaksaran Sanchez MD Dec 18, 2017 15:05
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
--- NOTE | 2017-12-18 17:35 | HHI.PR ---
Review/Management Daily Summary 12/18 she is much more fluent today expressive more than receptive aphasia no overt motor deficits will order eeg as well probably steroids helped edema and more fluent today pending mri, suspect meningioma Subjective Subjective Comments No acute events reported No headache Active Medications Current Medications Medications (Trade) Dose Ordered Sig/Yancy Route Start Time Stop Time Status Last Admin (NS Flush) 2 ml UNSCH PRN IV FLUSH 12/16/17 22:45 (NS Flush) 2 ml BID IV FLUSH 12/17/17 09:00 12/17/17 09:08 (Tylenol) 650 mg Q4H PRN PO 12/16/17 22:45 (Zofran Inj) 4 mg Q6H PRN IVP 12/16/17 22:45 (Narcan Inj) 0.4 mg UNSCH PRN IV PUSH 12/16/17 22:45 (Heparin Inj) 5,000 units Q8HR SQ 12/17/17 06:00 12/18/17 14:55 (Apresoline) 10 mg Q6HR PRN PO 12/17/17 08:15 12/17/17 15:46 (Vasotec Inj) 1.25 mg Q6H PRN IV PUSH 12/17/17 08:15 (Macrobid) 100 mg BIDPC PO 12/17/17 18:00 12/23/17 21:00 12/18/17 10:58 (Decadron Inj) 4 mg Q8HR IV PUSH 12/17/17 17:00 12/18/17 06:14 (Procardia Xl) 30 mg DAILY PO 12/18/17 09:00 12/18/17 10:29 Sodium Chloride 1,000 ml @ 75 mls/hr [id number] IV 12/17/17 18:00 12/18/17 10:34 (Protonix) 40 mg DAILY PO 12/18/17 09:00 12/18/17 10:29 (Keppra) 500 mg Q12HR PO 12/18/17 09:00 12/18/17 10:29 Allergies Allergies Coded Allergies No Allergy Information Available (Unverified12/15/17) Exam I&O / VS Vital Signs Date Time Temp Pulse Resp B/P (MAP) Pulse Ox O2 Delivery O2 Flow Rate FiO2 12/18/17 08:14 97.8 62 16 157/66 (96) 95 Manual Cuff/Auscultation 12/18/17 05:51 98.1 65 18 144/67 (92) 98 12/17/17 23:22 143/68 (93) 12/17/17 22:10 173/73 (106) 168/78 (108) 12/17/17 20:47 98.8 91 18 192/83 (119) 91 12/17/17 17:57 184/85 (118) Objective Micro and Labs Laboratory Tests Test 12/18/17 06:15 Blood Urea Nitrogen 14 Creatinine 1.04 Random Glucose 174 Calcium Level 9.7 Sodium Level 139 Potassium Level 4.8 Chloride Level 107 Carbon Dioxide Level 22.1 Anion Gap 10 Estimat Glomerular Filtration Rate 53 Rapid Plasma Reagin NON-REACTIVE Date/Time Source Procedure Growth Status 12/15/17 20:30 Urine Random Urine Urine Culture - Final Escherichia Coli Complete Diego Vallecillo MD Dec 18, 2017 17:35
--- NOTE | 2017-12-18 17:41 | PD.CONS ---
Consult Service Palliative Care Consult Requested By ZAK Peacock Primary Care Physician Unknown Reason for Consultation a. To assist with evaluation and management of symptoms including: Confusion , agitation b. To assist medical decision maker(s) with: better understanding of current medical conditions; weighing benefits/burdens of medical treatment options; making medical treatment decisions. (Kassi Tang) HPI History of Present Illness This is a 67-year-old female who was sent to the emergency room by a [facility] worker who had stopped to make a visit to check on the patient as she was unable to care for herself. The [facility] head refrigeration engineer, Chelsey Bourgeois , had seen the patient at her home and had both the patient and her mother sent to the emergency room for evaluation and treatment. The patient's mother is currently also admitted to [place]. The patient is unable to provide any information regarding her history. She is here under a Reynolds act as she has tried to run from the hospital several times. She is confused, does not know why she is in the hospital and keeps stating that she needs to go home and take care of her "15 cats". Review of the records indicates that she has been seen in the emergency room 12/15 and cleared medically for psychiatric evaluation and disposition. It was initially supposed that she had the early stages of Alzheimer's and was unable to care for herself. ED course: * Laboratory: WBC 7.8, hemoglobin 14.4, hematocrit 40.1, platelets 253, urinalysis shows many bacteria, positive nitrites, sent for culture, sodium 139 , potassium 3.2, BUN 17, creatinine 1.19, TSH 3.460. Psychiatric evaluation done 12/16 indicates that she is able to speak her name but unable to answer any questions, has significant problems with word finding, not oriented to time or place, unable to give a purpose why she was in the emergency room and one was unable to provide any information about her medications or history. She did not appear to be reacting to internal stimuli nor was she appearing manic or depressed. She verbalizes no suicidal or homicidal ideation and therefore did not make criteria for the Reynolds act at that evaluation and the Reynolds act was subsequently lifted. She was then returned back to the medical side of the emergency room for placement secondary to her cognitive difficulties. During her workup CT of the head was done showing a greater than 5 cm left frontal mass with surrounding edema causing significant midline shift towards the right and downward transtentorial mass- effect. Neurosurgery and neurology were consulted. Neurology recommended [facility] neurosurgical consultation with the remainder of the neurology evaluation to be done after being seen by neurosurgery. She was seen by Dr. Dunbar for neurosurgery who noted the noncontrast CT to reveal a large left cribriform plate skull base frontal mass on the left side extending onto the right side measuring about 5.5 cm in diameter with surrounding edema involving the left frontal lobe extending posteriorly with a mass-effect on the ventricles and frontal horns. Decadron was initiated for the vasogenic edema and PPI for GI stress ulcer prophylaxis. He is recommending an MRI scan of the brain with contrast to further evaluate, hypertension regulation and DVT prophylaxis. Pending MRI. There has been difficulty completing the MRI preprocedure screening form for the patient as there is no available history in the chart. Patient can provide no history and her mother, who was brought to the hospital at the same time, has dementia and is not capacitated. After contacting the [facility] client support representative I was provided with the patient's sisters contact information. Her sister is Karla Keller, who lives in [place], . Her sister is currently enroute to [place] to assist in the care of both her mother and sister. Her sister knew very little of her history other than that she had hypertension, was not a smoker or a heavy drinker, was not , had no children and to her knowledge had no prior implants or major illnesses. . Function/Cognitive Trajectory The patient has apparently been attempting to be her mother's caregiver, as the mother has severe Alzheimer's dementia. Due to the patient's own debility [facility] had been called in to evaluate and found conditions sufficiently degraded to admit both mother and daughter to the hospital. . (Kassi Tang) Review of Systems ROS Limitations: Clinical Condition, Altered Mental Status (Patient is nonverbal and unable to provide their own ROS. 10 part ROS taken as best as possible from medical record and available family.) Endocrine: DENIES: Abnorml menstrual pattern, Heat/cold intolerance, Polydipsia , Polyuria, Polyphagia Eyes: DENIES: Blurred vision, Diplopia, Eye inflammation, Eye pain, Vision loss , Photosensitivity, Double Vision, Blind spots Ears, nose, mouth, throat: DENIES: Tinnitus, Hearing loss, Vertigo, Nasal discharge, Oral lesions, Throat pain, Hoarseness, Ear Pain, Running Nose, Epistaxis, Sinus Pain, Toothache, Odynophagia Respiratory: DENIES: Apneas, Cough, Snoring, Wheezing, Hemoptysis, Sputum production, Shortness of breath Cardiovascular: DENIES: Chest pain, Palpitations, Syncope, Dyspnea on Exertion , PND, Lower Extremity Edema, Orthopnea, Claudication Gastrointestinal: DENIES: Abdominal pain, Black stools, Bloody stools, Constipation, Diarrhea, Nausea, Vomiting, Difficulty Swallowing, Anorexia, Dyspepsia or heartburn, Excessive gas, Bloating, Vomiting blood Genitourinary: DENIES: Abnormal vaginal bleeding, Dysmenorrhea, Dyspareunia, Sexual dysfunction, Urinary frequency, Urinary incontinence, Urgency, Hematuria , Dysuria, Nocturia, Vaginal discharge, Hesitancy, Dribbling, Decreased stream Musculoskeletal: DENIES: Joint pain, Muscle aches, Stiffness, Joint Swelling, Back pain, Neck pain, Decreased range of motion Integumentary: DENIES: Abnormal pigmentation, Pruritus, Rash, Nail changes, Breast masses, Breast skin changes, Nipple discharge, Nodules, Tumors, Excessive dryness, Non-healing sores Hematologic/Lymphatics: DENIES: Bruising, Lymphadenopathy, Prolonged bleed w/ proced, History of transfusions Immunologic/Allergic: DENIES: Eczema, Urticaria Neurologic: DENIES: Abnormal gait, Headache, Localized weakness, Paresthesias, Seizures, Speech Problems, Tremor, Poor Balance, Change in smell or taste Psychiatric: COMPLAINS OF: Confusion, Agitation (Kassi Tang) Past Family Social History Coded Allergies: No Allergy Information Available (Unverified , 12/15/17) DEMENTIA Past Medical History Hypertension . Past Surgical History Unable to obtain . Reported Medications Reported Meds & Active Scripts Active Active Prescriptions or Reported Medications Unobtainable . Current Medications Medications (Trade) Dose Ordered Sig/Yancy Route Start Time Stop Time Status Last Admin (NS Flush) 2 ml UNSCH PRN IV FLUSH 12/16/17 22:45 (NS Flush) 2 ml BID IV FLUSH 12/17/17 09:00 12/17/17 09:08 (Tylenol) 650 mg Q4H PRN PO 12/16/17 22:45 (Zofran Inj) 4 mg Q6H PRN IVP 12/16/17 22:45 (Narcan Inj) 0.4 mg UNSCH PRN IV PUSH 12/16/17 22:45 (Heparin Inj) 5,000 units Q8HR SQ 12/17/17 06:00 12/18/17 14:55 (Apresoline) 10 mg Q6HR PRN PO 12/17/17 08:15 12/17/17 15:46 (Vasotec Inj) 1.25 mg Q6H PRN IV PUSH 12/17/17 08:15 (Macrobid) 100 mg BIDPC PO 12/17/17 18:00 12/23/17 21:00 12/18/17 10:58 (Decadron Inj) 4 mg Q8HR IV PUSH 12/17/17 17:00 12/18/17 06:14 (Procardia Xl) 30 mg DAILY PO 12/18/17 09:00 12/18/17 10:29 Sodium Chloride 1,000 ml @ 75 mls/hr [id number] IV 12/17/17 18:00 12/18/17 10:34 (Protonix) 40 mg DAILY PO 12/18/17 09:00 12/18/17 10:29 (Keppra) 500 mg Q12HR PO 12/18/17 09:00 12/18/17 10:29 . Family History Mother is alive with dementia at age 90, now in the hospital. Father in his 80's of aspiration of emesis. . Substance Use Tobacco: no use. Alcohol: no use. Prescription med abuse: no abuse. Illicits:no use. . Psychosocial History She was born in [place] and moved to [place] in the mid s. She was never and has no children. 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 . Spiritual/Cultural Factors Spiritual in her own way, but not associated with any organized anglican. . (Kassi Tang) Health Care Surrogate: Never completed Durable Power of Solar Manager: Never completed Health Care Surrogate(s): Her sister, Karla Keller, would be healthcare proxy by [place] statutes. . Documented care wishes: No living will available. . Today's verbally stated goals: Patient is confused and unable to understand why she is here. . Family/friends goals: Patient's sister, Karla, is in route to [place] and has multiple questions for the neurosurgeon regarding the patient's options and what the result of each of those options would be regarding either surgery versus hospice and comfort care. . Ethical and Legal Issues Patient is under a Reynolds act at this time. . (Kassi Tang) Physical Exam Vital Signs Date Time Temp Pulse Resp B/P (MAP) Pulse Ox O2 Delivery O2 Flow Rate FiO2 12/18/17 08:14 97.8 62 16 157/66 (96) 95 Manual Cuff/Auscultation 12/18/17 05:51 98.1 65 18 144/67 (92) 98 12/17/17 23:22 143/68 (93) 12/17/17 22:10 173/73 (106) 168/78 (108) 12/17/17 20:47 98.8 91 18 192/83 (119) 91 12/17/17 17:57 184/85 (118) . Exam CONSTITUTIONAL/GENERAL: This is an adequately nourished patient, in no apparent distress. TUBES/LINES/DRAINS: PIV. SKIN: No jaundice, rashes, or lesions. Ecchymoses on upper extremities. No wounds seen anteriorly. Skin temperature appropriate. Not diaphoretic. HEAD: Atraumatic. Normocephalic. EYES: Pupils equal and round and reactive. Extraocular motions intact. No scleral icterus. No injection or drainage. Fundi not examined. ENT: Hearing grossly normal. Nose without bleeding or purulent drainage. Throat without visible erythema, exudates, masses, or lesions. NECK: Trachea midline. Supple, nontender. No palpable thyroid enlargement or nodularity. CARDIOVASCULAR: Regular rate and rhythm without murmurs, gallops, or rubs. No JVD. Peripheral pulses symmetric. RESPIRATORY/CHEST: Symmetric, unlabored respirations. Clear to auscultation. Breath sounds equal bilaterally. No wheezes, rales, or rhonchi. GASTROINTESTINAL: Abdomen soft, non-tender, nondistended. No hepato-splenomegaly , or palpable masses. No guarding. Bowel sounds present. GENITOURINARY: Without palpable bladder distension. MUSCULOSKELETAL: Extremities without clubbing, cyanosis, or edema. No joint tenderness or effusion noted. No calf tenderness. No mottling or clubbing. LYMPHATICS: No palpable cervical or supraclavicular adenopathy. NEUROLOGICAL: Awake and alert. Motor and sensory grossly within normal limits. Confused, mildly agitated, pacing in the room. Not oriented. PSYCHIATRIC: Anxious, mildly agitated. . (Kassi Tang) Diagnostic Tests Laboratory Laboratory Tests Test 12/15/17 20:30 12/17/17 05:00 12/18/17 06:15 White Blood Count 7.8 TH/MM3 (4.0-11.0) 6.0 TH/MM3 (4.0-11.0) Red Blood Count 4.61 MIL/MM3 (4.00-5.30) 4.60 MIL/MM3 (4.00-5.30) Hemoglobin 14.4 GM/DL (11.6-15.3) 13.9 GM/DL (11.6-15.3) Hematocrit 40.1 % (35.0-46.0) 40.5 % (35.0-46.0) Mean Corpuscular Volume 86.9 FL (80.0-100.0) 88.0 FL (80.0-100.0) Mean Corpuscular Hemoglobin 31.2 PG (27.0-34.0) 30.2 PG (27.0-34.0) Mean Corpuscular Hemoglobin Concent 35.9 % (32.0-36.0) 34.4 % (32.0-36.0) Red Cell Distribution Width 13.4 % (11.6-17.2) 13.5 % (11.6-17.2) Platelet Count 253 TH/MM3 (150-450) 241 TH/MM3 (150-450) Mean Platelet Volume 8.6 FL (7.0-11.0) 8.4 FL (7.0-11.0) Neutrophils (%) (Auto) 73.0 % (16.0-70.0) 68.5 % (16.0-70.0) Lymphocytes (%) (Auto) 15.6 % (9.0-44.0) 19.1 % (9.0-44.0) Monocytes (%) (Auto) 5.0 % (0.0-8.0) 5.4 % (0.0-8.0) Eosinophils (%) (Auto) 4.9 % (0.0-4.0) 5.8 % (0.0-4.0) Basophils (%) (Auto) 1.5 % (0.0-2.0) 1.2 % (0.0-2.0) Neutrophils # (Auto) 5.7 TH/MM3 (1.8-7.7) 4.1 TH/MM3 (1.8-7.7) Lymphocytes # (Auto) 1.2 TH/MM3 (1.0-4.8) 1.2 TH/MM3 (1.0-4.8) Monocytes # (Auto) 0.4 TH/MM3 (0-0.9) 0.3 TH/MM3 (0-0.9) Eosinophils # (Auto) 0.4 TH/MM3 (0-0.4) 0.3 TH/MM3 (0-0.4) Basophils # (Auto) 0.1 TH/MM3 (0-0.2) 0.1 TH/MM3 (0-0.2) CBC Comment DIFF FINAL DIFF FINAL Differential Comment Urine Color YELLOW (YELLW/STRAW) Urine Turbidity HAZY (CLEAR) Urine pH 5.5 (5.0-8.5) Urine Specific [place] 1.024 (1.002-1.035) Urine Protein TRACE mg/dL (NEG-TRACE) Urine Glucose (UA) NEG mg/dL (NEG) Urine Ketones NEG mg/dL (NEG) Urine Occult Blood NEG (NEG) Urine Nitrite POS (NEG) Urine Bilirubin NEG (NEG) Urine Urobilinogen 2.0 MG/DL (LESS THAN Urine Leukocyte Esterase LARGE (NEG) Urine RBC 6 /hpf (0-3) Urine WBC 23 /hpf (0-5) Urine Squamous Epithelial Cells 4 /hpf (0-5) Urine Bacteria MANY /hpf (NONE) Urine Mucus FEW /lpf (OCC) Microscopic Urinalysis Comment CULTURE INDICATED Blood Urea Nitrogen 17 MG/DL (7-18) 14 MG/DL (7-18) 14 MG/DL (7-18) Creatinine 1.19 MG/DL (0.50-1.00) 1.02 MG/DL (0.50-1.00) 1.04 MG/DL (0.50-1.00) Random Glucose 110 MG/DL (74-106) 120 MG/DL (74-106) 174 MG/DL (74-106) Total Protein 8.5 GM/DL (6.4-8.2) Albumin 4.1 GM/DL (3.4-5.0) Calcium Level 9.6 MG/DL (8.5-10.1) 9.2 MG/DL (8.5-10.1) 9.7 MG/DL (8.5-10.1) Alkaline Phosphatase 59 U/L (45-117) Aspartate Amino Transf (AST/SGOT) 10 U/L (15-37) Alanine Aminotransferase (ALT/SGPT) 18 U/L (10-53) Total Bilirubin 0.6 MG/DL (0.2-1.0) Sodium Level 139 MEQ/L (136-145) 140 MEQ/L (136-145) 139 MEQ/L (136-145) Potassium Level 3.2 MEQ/L (3.5-5.1) 3.3 MEQ/L (3.5-5.1) 4.8 MEQ/L (3.5-5.1) Chloride Level 102 MEQ/L (98-107) 105 MEQ/L (98-107) 107 MEQ/L (98-107) Carbon Dioxide Level 31.8 MEQ/L (21.0-32.0) 27.2 MEQ/L (21.0-32.0) 22.1 MEQ/L (21.0-32.0) Anion Gap 5 MEQ/L (5-15) 8 MEQ/L (5-15) 10 MEQ/L (5-15) Estimat Glomerular Filtration Rate 45 ML/MIN (>89) 54 ML/MIN (>89) 53 ML/MIN (>89) Thyroid Stimulating Hormone 3rd Gen 3.460 uIU/ML (0.358-3.740) Hemoglobin A1c 5.6 % (4.3-6.0) Magnesium Level 2.1 MG/DL (1.5-2.5) Vitamin B12 Level 217 PG/ML (193-986) Folate 5.9 NG/ML (3.1-17.5) Rapid Plasma Reagin NON-REACTIVE (NON-REACTVE) . (Kassi Tang) Result Diagram: 12/17/17 0500 12/18/17 0615 Microbiology Microbiology Date/Time Source Procedure Growth Status 12/15/17 20:30 Urine Random Urine Urine Culture - Final Escherichia Coli Complete Imaging Last Impressions Head CT 12/17/17 0000 Signed Impressions: Service Date/Time: Sunday, December 17, 2017 20:28 - CONCLUSION: Large frontal skull base and left parafalcine brain mass. Tommie Solis MD (Kassi Tang) Patient/Family Conference Present at Family Conference: Spoke with patient's sister via telephone address palliative care purposes and focus, discussed medical findings and psychosocial history. She is driving from [place] to [place] now and will be available in the morning for further conversation at which time, the following items will be further addressed. Family Conference Location: Telephone Issues Discussed: * Palliative care role, purpose, approach * Additional medical, psychosocial, and spiritual history * Patients general health, functional status, and cognitive changes in the months leading up to the current hospitalization * Patient/family understanding of the current medical problems * Patient/family understanding of prognosis * Patients goals of care as best understood from advance directives and/or conversations and/or values * Current medical treatment options and benefits/burdens of those options * Likely scenarios comparing ongoing aggressive care with a transition to comfort measures only * Questions answered to the best of my ability * Palliative care contact information provided (Kassi Tang) Assessment and Plan Disease Oriented Problem List: (1) Brain mass (2) Confusion (3) Dementia Symptom Scale: (1) Agitation 0-10 Scale: Unable to quantify (Patient is mildly agitated, pacing in the room. ) (2) Confusion 0-10 Scale: Unable to quantify (Not oriented to time place or purpose.) Pertinent Non-Medical Issues Psychosocial:She was born in [place] and moved to [place] in the mid 's. She was never and has no children. 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 Spiritual:Spiritual in her own way, but not associated with any organized anglican. Legal: She is currently not capacitated and under a Reynolds act. Ethical issues impacting care: Patient is currently refusing care. . Important Contacts Sister: Karla Keller DCF head refrigeration engineer, Chelsey Bourgeois . Prognosis Her prognosis is guarded. In addition to what is believed to be baseline dementia she also has a 5.5 cm brain mass with a significant midline shift and is pending neurosurgery workup. She is currently refusing the MRA and MRV. Without diagnosis, treatment would be compromised, likely leading to further complications and decline. . Code Status: Full Code Plan PLAN: Legal decision maker: At this time, the patient is not capacitated. Per my discussion with her sister, she has never been , has no children. Her [place] statutes her sister, Karla Castro would be the legal proxy decision- maker. The patient's mother has severe Alzheimer's and is herself now hospitalized. There are no other known relatives. His sister is willing to be the legal decision maker. Goals: To be determined. CODE STATUS: Full code by default, pending sister's evaluation of the situation. SYMPTOMS: * Confusion: She is currently oriented to self and unable to grasp the ramifications of her current situation. She lacks the insight and judgment to be able to understand her current diagnosis. Neurosurgery has requested further imaging studies, which the patient is currently refusing. As she is under a Reynolds act, she lacks the capacity to make that decision. Pending neurosurgeries decision for further evaluation and care. * Agitation: She does remain mildly agitated. She is unable to provide the name of her pharmacy, but was able to remember the name of her physician that she states is a new doctor to her, Dr. Riley. She becomes agitated with any questions and is pacing the room. She has attempted on several occasions to run out of the hospital, necessitating the reenactment of the Reynolds act which had previously been lifted by psychiatry. She may benefit from some anxiolytic. SUMMARY This is a 67-year-old female brought into the hospital under a Reynolds act by [facility] as she was unable to care for herself or her mother, for whom she has been the caregiver. Initial workup indicated a 5.5 cm mass in the brain which neurosurgery is now evaluating. The patient is refusing MRI studies making it difficult to care for her. If she continues to refuse treatment it will be difficult to provide her the care needed. She will likely suffer further complications and continued decline. Palliative care will continue to follow the patient during hospital course as condition evolves, to assist patient/decision-maker with understanding of their medical conditions, weighing benefits/burdens of treatment options, for clarification of goals of treatment. Additionally will assist with any symptoms of palliative concern. . (Kassi Tang) Thank you for the opportunity to participate in the care of Ms. Keller. (Kassi Tang) Attestation To help prompt me to consider important information that might be impacting today's encounter and assessment, information from prior notes written by myself or my colleagues may have been "brought forward" into today's note. My signature on this note, however, is an attestation that I personally performed the exam, history, and/or decision-making noted today, and, unless otherwise indicated, the interactions with patient, family, and staff as well as the review of records all occurred today. I also attest that the listed assessment and stated plan reflect my best clinical judgment today based on the combination of historical information, prior notes, and today's exam/ interactions. When time spent is documented, it refers only to time spent today by the signer, or if indicated, combined time spent today by collaborating physician/nurse practitioner. . (Kassi Tang) Collaborating MD Comments Chart reviewed. Case discussed with palliative care PAROLE SUPERVISOR. Above PAROLE SUPERVISOR note reviewed and I concur. . (Jeremie Small MD) Kassi Tang Dec 18, 2017 17:40 Jeremie Small MD Dec 26, 2017 17:05
--- NOTE | 2017-12-18 18:01 | HHI.NSPN ---
History Chief Complaint: Confusion and disorientation with expressive aphasia. Interval History A 67-year-old female who was admitted on 12/15/2017 after she presented to the emergency room. She was Reynolds acted. She was found by a social media developer at home unable to care for self. Patient is very confused and also has some word-finding difficulty and cannot relate any history to me. When asked if she has a headache, she says yes. When asked if she has any medical problems, she states some physical ailments, but cannot delineate any further. When asked if she has any numbness or paresthesias, she will give an ambivalent answer. She was found to have an E. coli urinary tract infection and has been on antibiotics. CT scan of the head obtained without contrast today reveals a large left cribriform plate skull base frontal mass which is on the left side. It also extends on the right side and measures about 5.5 cm in diameter with surrounding edema involving the left frontal lobe extending posteriorly with a mass effect on the ventricles and frontal horns. Neurosurgery has subsequently been consulted for further treatment recommendations. 12/18/17: Pt awake and alert but confused and disoriented. She has difficulty expressing her thoughts and gets frustrated. History is difficulty to obtain secondary to the expressive aphasia. System Review Comments Not able to obtain given expressive aphasia. Exam Results Vital Signs Date Time Temp Pulse Resp B/P (MAP) Pulse Ox O2 Delivery O2 Flow Rate FiO2 12/18/17 08:14 97.8 62 16 157/66 (96) 95 Manual Cuff/Auscultation 12/16/17 21:53 Room Air Physical Examination General: Pt awake and alert resting in bed in no acute distress. Eyes: Pupils equal and sclera anicteric. Resp: CTA bilaterally Heart: NSR no murmurs Abd: Soft positive bs Skin: No cyanosis or erythema Muscle: Moves all 4 extremities with good strength although some difficulty following commands. Neuro: Pt awake and alert. Pupils 3mm bilaterally reactive bilaterally. She follows commands but has difficulty follow some more complex commands. She has moderate to severe expressive aphasia and is not able to form a sentence that makes sense. She does answer some yes/no questions. Lab, Micro, Other Results Last Impressions Head CT 12/17/17 0000 Signed Impressions: Service Date/Time: Sunday, December 17, 2017 20:28 - CONCLUSION: Large frontal skull base and left parafalcine brain mass. Tommie Solis MD Laboratory Tests Test 12/17/17 05:00 12/18/17 06:15 White Blood Count 6.0 TH/MM3 Red Blood Count 4.60 MIL/MM3 Hemoglobin 13.9 GM/DL Hematocrit 40.5 % Mean Corpuscular Volume 88.0 FL Mean Corpuscular Hemoglobin 30.2 PG Mean Corpuscular Hemoglobin Concent 34.4 % Red Cell Distribution Width 13.5 % Platelet Count 241 TH/MM3 Mean Platelet Volume 8.4 FL Neutrophils (%) (Auto) 68.5 % Lymphocytes (%) (Auto) 19.1 % Monocytes (%) (Auto) 5.4 % Eosinophils (%) (Auto) 5.8 % Basophils (%) (Auto) 1.2 % Neutrophils # (Auto) 4.1 TH/MM3 Lymphocytes # (Auto) 1.2 TH/MM3 Monocytes # (Auto) 0.3 TH/MM3 Eosinophils # (Auto) 0.3 TH/MM3 Basophils # (Auto) 0.1 TH/MM3 CBC Comment DIFF FINAL Differential Comment Blood Urea Nitrogen 14 MG/DL 14 MG/DL Creatinine 1.02 MG/DL 1.04 MG/DL Random Glucose 120 MG/DL 174 MG/DL Calcium Level 9.2 MG/DL 9.7 MG/DL Sodium Level 140 MEQ/L 139 MEQ/L Potassium Level 3.3 MEQ/L 4.8 MEQ/L Chloride Level 105 MEQ/L 107 MEQ/L Carbon Dioxide Level 27.2 MEQ/L 22.1 MEQ/L Anion Gap 8 MEQ/L 10 MEQ/L Estimat Glomerular Filtration Rate 54 ML/MIN 53 ML/MIN Hemoglobin A1c 5.6 % Magnesium Level 2.1 MG/DL Vitamin B12 Level 217 PG/ML Folate 5.9 NG/ML Rapid Plasma Reagin NON-REACTIVE Medical Decision Making Impression and Plan A: 1. Large left frontal skull base cribriform plate mass which extends into the right side to cross the midline along with surrounding vasogenic edema extending into the posterior frontal lobe with mass effect on the ventricles. This is concerning for likely meningioma, but other possibilities also need to be entertained. 2. Apparent progressive cognitive decline with dementia which could be related to this bifrontal large mass. 3. Unregulated hypertension. 4. Urinary tract infection. PLAN Continue with Decadron MRI Brain, MRA and MRV has been ordered. Continue with Neuro checks. Pt has a sitter in the room. Further plan depending on the results of the MRI scans. Tate Cisneros Dec 18, 2017 6:01 pm
[2017-12-18 20:58] VITALS: BP 146/73; PULSE 82; RESP 18; TEMP 98; O2SAT 97
[2017-12-19 01:01] VITALS: BP 126/59; PULSE 63; RESP 18; TEMP 97.2; O2SAT 95
[2017-12-19 05:13] VITALS: BP 159/73; PULSE 80; RESP 18; TEMP 97.7; O2SAT 94
[2017-12-19] MEDS: DEXAMETHASONE SOD PHOS 4 MG/ML VIAL IV PUSH SCH ×3 (06:00→21:30)
[2017-12-19] MEDS: HEPARIN SODIUM - SQ 10,000 UNITS/ML VIAL SQ SCH ×3 (06:00→21:29)
[2017-12-19 08:11] VITALS: BP 131/67; PULSE 70; RESP 18; TEMP 97.8; O2SAT 96
--- NOTE | 2017-12-19 08:26 | HHI.PR ---
Subjective Remarks In bed appears in nad. Poor insight and judgement. Patient denies any hedache, monitor or sensory deficit. She has some difficulty finding words. Family sister Js at bedside. Also seen by Dr Dunbar neurosurgery/. Plan for MRI. Objective Vitals Vital Signs Date Time Temp Pulse Resp B/P (MAP) Pulse Ox O2 Delivery O2 Flow Rate FiO2 12/19/17 08:11 97.8 70 18 131/67 (88) 96 12/19/17 05:13 97.7 80 18 159/73 (101) 94 12/19/17 01:01 97.2 63 18 126/59 (81) 95 12/18/17 20:58 98.0 82 18 146/73 (97) 97 I/O 12/18/17 12/18/17 12/18/17 12/19/17 12/19/17 12/19/17 07:00 15:00 23:00 07:00 15:00 23:00 Intake Total 550 ml Balance 550 ml Intake Oral 550 ml # Voids 2 # Bowel Movements 1 Result Diagram: 12/17/17 0500 12/18/17 0615 Imaging Last Impressions Head CT 12/17/17 0000 Signed Impressions: Service Date/Time: Sunday, December 17, 2017 20:28 - CONCLUSION: Large frontal skull base and left parafalcine brain mass. Tommie Solis MD Objective Remarks GENERAL: Well-nourished, well-developed female patient in [facility]. HEENT: Normocephalic. Atraumatic.Pupils equal and round. Mucous membranes pink and moist. CARDIOVASCULAR: Regular rate and rhythm. S1, S2 noted. No murmur appreciated. RESPIRATORY: No accessory muscle use. Clear to auscultation. Breath sounds equal bilaterally. GASTROINTESTINAL: Abdomen soft, non-tender, nondistended. Normoactive bowel sounds x4. MUSCULOSKELETAL: No obvious deformities. Extremities without clubbing, cyanosis , or edema. NEUROLOGICAL: Awake and alert, oriented to self only. No obvious cranial nerve deficits. Motor grossly within normal limits. Normal speech. PSYCHIATRIC: Flat affect; insight and judgment limited. A/P Assessment and Plan 67-year-old female with dementia, presented under Reynolds Act from [facility] for poor living conditions and unable to care for self Brain Mass: Head CT images reviewed, shows >5cm left frontal mass with surrounding edema causing significant midline shift towards the right and downward transtentorial mass effect -Consulted neurosurgery -Brain MRI/MRA/MRV reviewed -Continue on IV Decadron for edema -On Keppra 500mg bid for seizure prophylaxis -Neuro checks, Seizure precautions. Neurology ff. Consulted neurosurgery Dr Richardson ff. -Consult palliative care to assist -Consult psychiatry to eval capacity, patient does not appear to understand diagnosis and unable to make medical decisions Altered mental status 2/2 above Patient eloped from the hospital 12/18/27 twice, Reynolds acted , consult psychiatry also for capacity. Patient sister Js says their mother is the POA however their mother is also in the hospital and she is the POA for the mother as well. Urinary tract infection: UA consistent with UTI with large leukocyte esterase, 23 WBCs, many bacteria, nitrite positive. -Urine culture with E Coli, pansensitive. -Will complete 7 day course of Macrobid BID (stop date 12/23) Dementia, Unable to care for self: Admitted under Reynolds act by the department of social work coordinator. B12, folate, TSH all wnl. RPR negative. -Evaluated by psychiatry upon arrival and reynolds act lifted. -Consult Neurology, appreciate assistance -Case management consulted to assist with placement Hypokalemia: Persistent despite by mouth repletion -Given multiple doses of po KCl -Mag level normal -Repeat BMP shows improvement. Monitor and replace. ERIKA: Suspect due to poor oral intake. Monitor kidney indices -Improving s/p IVF -Avoid nephrotoxic agents -Repeat BMP DVT Prophylaxis: Heparin Discussed with the patient, nurse, patient sister Js at bedside, Dr Whittaker neurosurgery Angie Larkin MD Dec 19, 2017 08:26
[2017-12-19 09:18] LABS: AUTOMATED NEUTROPHIL # 14.6 TH/MM3 (1.8-7.7); BASOPHIL # 0.1 TH/MM3 (0-0.2); BASOPHIL % 0.3 % (0.0-2.0); EOSINOPHIL # 0.1 TH/MM3 (0-0.4); EOSINOPHIL % 0.5 % (0.0-4.0); HEMOGLOBIN 15.4 GM/DL (11.6-15.3); LYMPH % 6.7 % (9.0-44.0); LYMPHOCYTE # 1.1 TH/MM3 (1.0-4.8); MEAN CELL VOLUME 89.2 FL (80.0-100.0); MEAN CORPUSCULAR HEMOGLOBIN 29.8 PG (27.0-34.0); MEAN CORPUSCULAR HGB CONC 33.4 % (32.0-36.0); MEAN PLATELET VOLUME 8.6 FL (7.0-11.0); MONO % 4.9 % (0.0-8.0); MONOCYTE # 0.8 TH/MM3 (0-0.9); NEUT % 87.6 % (16.0-70.0); PLATELET COUNT 324 TH/MM3 (150-450); RED BLOOD COUNT 5.15 MIL/MM3 (4.00-5.30); WHITE BLOOD COUNT 16.7 TH/MM3 (4.0-11.0)
[2017-12-19] MEDS: NIFEdipine 30 MG SUSTAINED RELEASE TAB PO SCH (09:43)
[2017-12-19] MEDS: NITROFURANTOIN MONOHYD MACROCR 100 MG CAP PO SCH ×2 (09:43→17:10)
[2017-12-19] MEDS: levETIRAcetam 500 MG TAB PO SCH ×2 (09:43→21:29)
[2017-12-19] MEDS: PANTOPRAZOLE SOD 40 MG DELAYED RELEASE TAB PO SCH (09:43)
[2017-12-19] MEDS: SODIUM CHLORIDE 0.9% FLUSH 10 ML FLUSH IV FLUSH SCH ×2 (09:43→21:29)
[2017-12-19 09:48] LABS: BICARBONATE 23.6 MEQ/L (21.0-32.0); CALCIUM 9.8 MG/DL (8.5-10.1); CREATININE 0.99 MG/DL (0.50-1.00)
[2017-12-19 12:04] VITALS: BP 137/62; PULSE 71; RESP 18; TEMP 97.3; O2SAT 95
[2017-12-19] MEDS: SODIUM CHLOR 0.9% 1000 ML INJ 1,000 ML IV SCH ×2 (12:28→23:20)
--- NOTE | 2017-12-19 13:13 | RADRPT ---
EXAM DATE/TIME: 12/19/2017 12:49 [place] COMPARISON: No previous studies available for comparison. INDICATIONS : MRI clearence. MEDICAL HISTORY : Dementia. Diabetes mellitus type 1. SURGICAL HISTORY : None. ENCOUNTER: Initial ACUITY: 1 day PAIN SCORE: 0/10 LOCATION: Bilateral chest FINDINGS: Mild streaky parenchymal opacity in the left lower lobe. Right lung is grossly clear. Cardiac contour s are satisfactory. Thoracic skeleton is grossly intact. There are no foreign implement is identified which would contraindicate MRI. CONCLUSION: Mild left base infiltrates. Tommie Solis MD on December 19, 2017 at 13:11 Board Certified Radiologist. This report was verified electronically.
--- NOTE | 2017-12-19 13:16 | PD.PSY.CON ---
Provisional Diagnosis Admission Date Dec 17, 2017 at 17:07 [place] I. Dementia with behavioral disturbances History of Present Illness Service Psychiatry Consult Requested By Medicine Reason for Consult Assessment of capacity Primary Care Physician Unknown HPI The patient is a 67-year-old woman, with psychiatric history of Alzheimer's disease, who presents to ED under a Reynolds act initiated by law enforcement. The Reynolds act states that the police responded to a call in reference to Reynolds act. The officer states he spoke with the [facility] employee who advised him she arrived on seen in reference to a welfare check and that she believes Tatum was not taking her prescribed medication. The [facility] employee advised Tatum has early stages of Alzheimer's and is unable to care for herself. The patient was hospitalized due to altered mental status, hypokalemia , seizures, UTI. Consulted to psychiatry to assess decision-making capacity. The patient was sitting in the ER initially by [place], the Reynolds act was lifted.Electronic medical record is reviewed. Nursing charge is states that the patient has been trying to elope from the hospital. No previous contact with [facility] psychiatry Department. The patient has been monitored in secure environment with no behavioral dysregulation. On psychiatric evaluation today the patient is calm, superficially cooperative. The patient reports that she feels okay, she denies most symptoms, denies anxiety, denies dane, denies suicidal ideation, denies homicidal ideation, denies visual and auditory hallucinations. Patient is unable to verbalize the reason of her hospitalization. She said that she is here, she doesn't clarify the reason to be here. Patient is unable to list her medical conditions, was unable to express even a minimal understanding or appreciation of current medical condition. Appropriate and paranoia, aggressive inhaler, agitation present at this moment. Past Family Social History Coded Allergies: No Allergy Information Available (Unverified , 12/15/17) DEMENTIA Unable to Obtain Active Prescriptions or Reported Meds Current Medications Medications (Trade) Dose Ordered Sig/Yancy Route Start Time Stop Time Status Last Admin (NS Flush) 2 ml UNSCH PRN IV FLUSH 12/16/17 22:45 (NS Flush) 2 ml BID IV FLUSH 12/17/17 09:00 12/19/17 09:43 (Tylenol) 650 mg Q4H PRN PO 12/16/17 22:45 (Zofran Inj) 4 mg Q6H PRN IVP 12/16/17 22:45 (Narcan Inj) 0.4 mg UNSCH PRN IV PUSH 12/16/17 22:45 (Heparin Inj) 5,000 units Q8HR SQ 12/17/17 06:00 12/19/17 06:00 (Apresoline) 10 mg Q6HR PRN PO 12/17/17 08:15 12/17/17 15:46 (Vasotec Inj) 1.25 mg Q6H PRN IV PUSH 12/17/17 08:15 (Macrobid) 100 mg BIDPC PO 12/17/17 18:00 12/23/17 21:00 12/19/17 09:43 (Decadron Inj) 4 mg Q8HR IV PUSH 12/17/17 17:00 12/18/17 06:14 (Procardia Xl) 30 mg DAILY PO 12/18/17 09:00 12/19/17 09:43 Sodium Chloride 1,000 ml @ 75 mls/hr [id number] IV 12/17/17 18:00 12/19/17 12:28 (Protonix) 40 mg DAILY PO 12/18/17 09:00 12/19/17 09:43 (Keppra) 500 mg Q12HR PO 12/18/17 09:00 12/19/17 09:43 Physical Exam Vital Signs Vital Signs Date Time Temp Pulse Resp B/P (MAP) Pulse Ox O2 Delivery O2 Flow Rate FiO2 12/19/17 12:04 97.3 71 18 137/62 (87) 95 12/16/17 21:53 Room Air I/O 12/19/17 12/19/17 12/20/17 08:00 16:00 00:00 Intake Total 550 ml Balance 550 ml Lab Results Test 12/19/17 08:45 White Blood Count 16.7 TH/MM3 Red Blood Count 5.15 MIL/MM3 Hemoglobin 15.4 GM/DL Hematocrit 46.0 % Mean Corpuscular Volume 89.2 FL Mean Corpuscular Hemoglobin 29.8 PG Mean Corpuscular Hemoglobin Concent 33.4 % Red Cell Distribution Width 14.0 % Platelet Count 324 TH/MM3 Mean Platelet Volume 8.6 FL Neutrophils (%) (Auto) 87.6 % Lymphocytes (%) (Auto) 6.7 % Monocytes (%) (Auto) 4.9 % Eosinophils (%) (Auto) 0.5 % Basophils (%) (Auto) 0.3 % Neutrophils # (Auto) 14.6 TH/MM3 Lymphocytes # (Auto) 1.1 TH/MM3 Monocytes # (Auto) 0.8 TH/MM3 Eosinophils # (Auto) 0.1 TH/MM3 Basophils # (Auto) 0.1 TH/MM3 CBC Comment DIFF FINAL Differential Comment Blood Urea Nitrogen 21 MG/DL Creatinine 0.99 MG/DL Random Glucose 123 MG/DL Calcium Level 9.8 MG/DL Sodium Level 138 MEQ/L Potassium Level 3.4 MEQ/L Chloride Level 105 MEQ/L Carbon Dioxide Level 23.6 MEQ/L Anion Gap 9 MEQ/L Estimat Glomerular Filtration Rate 56 ML/MIN Date/Time Source Procedure Growth Status 12/15/17 20:30 Urine Random Urine Urine Culture - Final Escherichia Coli Complete Mental Status Examination Appearance: Appropriate (dressed in [facility] with fair hygiene) Consciousness: Alert Orientation: Person Motor Activity: Normal gait Speech: Other (marked difficulty with words) Fund of Knowledge: Poor Attention and Concentration: Easily Distracted Memory: Impaired Mood: Appropriate Affect: Appropriate Thought Process & Associations: Other (fragmented.) Thought Content: Appropriate Hallucination Type: None Delusion Type: None Suicidal Ideation: No Suicidal Plan: No Suicidal Intention: No Homicidal Ideation: No Homicidal Plan: No Homicidal Intention: No Insight: Poor Judgment: Poor Assessment & Plan Problem List: (1) Dementia ICD Codes: F03.90 - Unspecified dementia without behavioral disturbance Status: Acute Assessment & Plan: At the moment of this evaluation the patient does not seem to be aware of the reason of her hospitalization. When able to verbalize understanding of appreciation of current medical condition. The patient does not have decision-making capacity to leave [place] at this moment. Assessment & Plan Estimated LOS: days Problem Qualifiers (1) Dementia: Qualified Codes: F03.90 - Unspecified dementia without behavioral disturbance Robert Coreas MD Dec 19, 2017 13:16
[2017-12-19 15:43] VITALS: BP 168/74; PULSE 69; RESP 18; TEMP 98.4; O2SAT 94
[2017-12-19] MEDS ORDERED: LORazepam 1 MG TAB PO ONE (16:30)
--- NOTE | 2017-12-19 16:47 | HHI.HCPN ---
Reason for visit a. To assist with evaluation and management of symptoms including: Confusion , agitation b. To assist medical decision maker(s) with: better understanding of current medical conditions; weighing benefits/burdens of medical treatment options; making medical treatment decisions. (Kassi Tang) Subjective/Interval History Patient remains confused, under a Reynolds act, requiring a sitter. She is less agitated today. Her sister, Karla, has arrived from [place] to assist in decision making. The patient did not know who her sister was and kept asking "but where is Karla?", Even after her sister explained to her who she was multiple times. Neurosurgery was consulted to discuss with the sister and Dr. Dunbar and ZAK Fuentes, came to the room to answer the sister's questions and explained to the patient the imaging findings of a large mass in her brain, likely causing her confusion. Per Dr. Dunbar's explanation, the size of the tumor and growth of the mass would likely cause brainstem compression and potentially without surgical intervention. The patient did seem to grasp some of the gravity of this and with encouragement from her sister, did agree to undergo the MRI and cooperate with directions. Psychiatric consultation was obtained to ascertain capacity and at this time was felt not to have decision- making capacity to be able to leave the hospital AGAINST MEDICAL ADVICE. The patient remains confused and continues to have difficulty finding words and expressing herself. She is oriented to self and motor ability is grossly within normal limits. She was able to ambulate to the bathroom with a standby assist and perform her ADLs with minimal assist from the GRIEVANCE MANAGER. She was found to have a urinary tract infection positive for E. coli, pansensitive and is receiving Macrobid for that. She agrees to cooperate with the MRI and will likely require craniotomy for resection of this mass. Dr. Dunbar discussed this with the sister, who is, by [place] statutes, the proxy medical decision maker. . Family/friend interactions Her sister was contacted yesterday once contact information was obtained from [facility] employee Mary Bourgeois. The sister drove from [facility] overnight and arrived at the home of her mother and sister, finding it in filthy condition. She came to the hospital today to manage both the longterm facility placement for her mother, who is 89 with dementia, who had been under the care of the patient. As both were deemed incapable of caring for themselves , the sister, Karla, has assumed decision-making duties for both. After discussion with the neurosurgeon, Dr. Dunbar, she determined that there was no alternative but to undergo surgery and has made contact with the neurosurgeon to provide consent when surgery is planned. All questions presented to the neurosurgeon were answered to her satisfaction and at the end of the conference she had no further questions regarding her sister at this time. Palliative care contact information was provided to her for further concerns, questions or discussion. . (Kassi Tang) Advance Directives Health Care Surrogate: Never completed Durable Power of [employer] Hand Loom: Never completed (Kassi Tang) Advance Directive Specifics Health Care Surrogate(s): Her sister, Karla Keller, would be healthcare proxy by [place] statutes. . Documented care wishes: No living will available. . (Kassi Tang) Objective Vital Signs Date Time Temp Pulse Resp B/P (MAP) Pulse Ox O2 Delivery O2 Flow Rate FiO2 12/19/17 15:43 98.4 69 18 168/74 (105) 94 12/19/17 12:04 97.3 71 18 137/62 (87) 95 12/19/17 08:11 97.8 70 18 131/67 (88) 96 12/19/17 05:13 97.7 80 18 159/73 (101) 94 12/19/17 01:01 97.2 63 18 126/59 (81) 95 12/18/17 20:58 98.0 82 18 146/73 (97) 97 Intake & Output 12/19/17 12/19/17 07:00 19:00 Intake Total 550 ml 480 ml Balance 550 ml 480 ml Intake Oral 550 ml 480 ml # Voids 2 3 # Bowel Movements 1 3 Physical Exam CONSTITUTIONAL/GENERAL: This is an adequately nourished patient, in no apparent distress. TUBES/LINES/DRAINS: PIV. SKIN: No jaundice, rashes, or lesions. Ecchymoses on upper extremities. No wounds seen anteriorly. Skin temperature appropriate. Not diaphoretic. HEAD: Atraumatic. Normocephalic. EYES: Pupils equal and round and reactive. Extraocular motions intact. No scleral icterus. No injection or drainage. Fundi not examined. ENT: Hearing grossly normal. Nose without bleeding or purulent drainage. Throat without visible erythema, exudates, masses, or lesions. NECK: Trachea midline. Supple, nontender. No palpable thyroid enlargement or nodularity. CARDIOVASCULAR: Regular rate and rhythm without murmurs, gallops, or rubs. No JVD. Peripheral pulses symmetric. RESPIRATORY/CHEST: Symmetric, unlabored respirations. Clear to auscultation. Breath sounds equal bilaterally. No wheezes, rales, or rhonchi. GASTROINTESTINAL: Abdomen soft, non-tender, nondistended. No hepato-splenomegaly , or palpable masses. No guarding. Bowel sounds present. GENITOURINARY: Without palpable bladder distension. MUSCULOSKELETAL: Extremities without clubbing, cyanosis, or edema. No joint tenderness or effusion noted. No calf tenderness. No mottling or clubbing. LYMPHATICS: No palpable cervical or supraclavicular adenopathy. NEUROLOGICAL: Awake and alert. Motor and sensory grossly within normal limits. Confused, resting in bed. Not oriented. PSYCHIATRIC: Anxious, cooperative . (Kassi Tang) Diagnostic Tests Laboratory Laboratory Tests Test 12/17/17 05:00 12/18/17 06:15 12/19/17 08:45 White Blood Count 6.0 TH/MM3 (4.0-11.0) 16.7 TH/MM3 (4.0-11.0) Red Blood Count 4.60 MIL/MM3 (4.00-5.30) 5.15 MIL/MM3 (4.00-5.30) Hemoglobin 13.9 GM/DL (11.6-15.3) 15.4 GM/DL (11.6-15.3) Hematocrit 40.5 % (35.0-46.0) 46.0 % (35.0-46.0) Mean Corpuscular Volume 88.0 FL (80.0-100.0) 89.2 FL (80.0-100.0) Mean Corpuscular Hemoglobin 30.2 PG (27.0-34.0) 29.8 PG (27.0-34.0) Mean Corpuscular Hemoglobin Concent 34.4 % (32.0-36.0) 33.4 % (32.0-36.0) Red Cell Distribution Width 13.5 % (11.6-17.2) 14.0 % (11.6-17.2) Platelet Count 241 TH/MM3 (150-450) 324 TH/MM3 (150-450) Mean Platelet Volume 8.4 FL (7.0-11.0) 8.6 FL (7.0-11.0) Neutrophils (%) (Auto) 68.5 % (16.0-70.0) 87.6 % (16.0-70.0) Lymphocytes (%) (Auto) 19.1 % (9.0-44.0) 6.7 % (9.0-44.0) Monocytes (%) (Auto) 5.4 % (0.0-8.0) 4.9 % (0.0-8.0) Eosinophils (%) (Auto) 5.8 % (0.0-4.0) 0.5 % (0.0-4.0) Basophils (%) (Auto) 1.2 % (0.0-2.0) 0.3 % (0.0-2.0) Neutrophils # (Auto) 4.1 TH/MM3 (1.8-7.7) 14.6 TH/MM3 (1.8-7.7) Lymphocytes # (Auto) 1.2 TH/MM3 (1.0-4.8) 1.1 TH/MM3 (1.0-4.8) Monocytes # (Auto) 0.3 TH/MM3 (0-0.9) 0.8 TH/MM3 (0-0.9) Eosinophils # (Auto) 0.3 TH/MM3 (0-0.4) 0.1 TH/MM3 (0-0.4) Basophils # (Auto) 0.1 TH/MM3 (0-0.2) 0.1 TH/MM3 (0-0.2) CBC Comment DIFF FINAL DIFF FINAL Differential Comment Blood Urea Nitrogen 14 MG/DL (7-18) 14 MG/DL (7-18) 21 MG/DL (7-18) Creatinine 1.02 MG/DL (0.50-1.00) 1.04 MG/DL (0.50-1.00) 0.99 MG/DL (0.50-1.00) Random Glucose 120 MG/DL (74-106) 174 MG/DL (74-106) 123 MG/DL (74-106) Calcium Level 9.2 MG/DL (8.5-10.1) 9.7 MG/DL (8.5-10.1) 9.8 MG/DL (8.5-10.1) Sodium Level 140 MEQ/L (136-145) 139 MEQ/L (136-145) 138 MEQ/L (136-145) Potassium Level 3.3 MEQ/L (3.5-5.1) 4.8 MEQ/L (3.5-5.1) 3.4 MEQ/L (3.5-5.1) Chloride Level 105 MEQ/L (98-107) 107 MEQ/L (98-107) 105 MEQ/L (98-107) Carbon Dioxide Level 27.2 MEQ/L (21.0-32.0) 22.1 MEQ/L (21.0-32.0) 23.6 MEQ/L (21.0-32.0) Anion Gap 8 MEQ/L (5-15) 10 MEQ/L (5-15) 9 MEQ/L (5-15) Estimat Glomerular Filtration Rate 54 ML/MIN (>89) 53 ML/MIN (>89) 56 ML/MIN (>89) Hemoglobin A1c 5.6 % (4.3-6.0) Magnesium Level 2.1 MG/DL (1.5-2.5) Vitamin B12 Level 217 PG/ML (193-986) Folate 5.9 NG/ML (3.1-17.5) Rapid Plasma Reagin NON-REACTIVE (NON-REACTVE) . (Kassi Tang) Result Diagram: 12/19/17 0845 12/19/17 0845 Microbiology Microbiology Date/Time Source Procedure Growth Status 12/15/17 20:30 Urine Random Urine Urine Culture - Final Escherichia Coli Complete . Imaging Last Impressions Chest X-Ray 12/19/17 0000 Signed Impressions: Service Date/Time: Tuesday, December 19, 2017 12:49 - CONCLUSION: Mild left base infiltrates. Tommie Solis MD Head CT 12/17/17 0000 Signed Impressions: Service Date/Time: Sunday, December 17, 2017 20:28 - CONCLUSION: Large frontal skull base and left parafalcine brain mass. Tommie Solis MD . (Kassi Tang) Assessment and Plan Disease Oriented Problem List: (1) Brain mass (2) Confusion (3) Dementia Symptom Scale: (1) Agitation 0-10 Scale: Unable to quantify (Patient is mildly agitated, pacing in the room. ) (2) Confusion 0-10 Scale: Unable to quantify (Not oriented to time place or purpose.) Pertinent Non-Medical Issues Psychosocial:She was born in [place] and moved to [place] in the mid 's. She was never and has no children. 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 Spiritual:Spiritual in her own way, but not associated with any organized confucianism. Legal: She is currently not capacitated and under a Reynolds act. Ethical issues impacting care: Patient is currently refusing care. . Important Contacts Sister: Karla Keller DCF social work assistant, Chelsey Bourgeois . Prognosis Her prognosis is guarded. In addition to what is believed to be baseline dementia she also has a 5.5 cm brain mass with a significant midline shift and is pending neurosurgery workup. She is currently refusing the MRA and MRV. Without diagnosis, treatment would be compromised, likely leading to further complications and decline. . Code Status: Full Code Plan PLAN: Legal decision maker: At this time, the patient is not capacitated. Per my discussion with her sister, she has never been , has no children. Her [place] statutes her sister, Karla Castro would be the legal proxy decision- maker. The patient's mother has severe Alzheimer's and is herself now hospitalized. There are no other known relatives. His sister is willing to be the legal decision maker. Goals: To be determined. CODE STATUS: Full code by default, pending sister's evaluation of the situation. SYMPTOMS: * Confusion: She is currently oriented to self and unable to grasp the ramifications of her current situation. She lacks the insight and judgment to be able to understand her current diagnosis. Neurosurgery has requested further imaging studies, which the patient is now agreeing to. As she is under a Reynolds act, she lacks the capacity to make that decision. She has been evaluated by psychiatry and found not capacitated for decision-making. * Agitation: She is improving and calmer today. She appeared to be doing better once her sister arrived and spoke to her for a while. She still did not seem to recognize her sister but did respond appropriately to her, regardless. She did agree to undergo MRI studies, but will likely need a small dose of anxiolytic to help her comply with being still during the study. This was discussed with Dr. Dunbar who agreed to a small dose of Ativan to assist in patient remaining calm during MRI. MRI is currently pending. Palliative care will continue to follow the patient during hospital course as condition evolves, to assist patient/decision-maker with understanding of their medical conditions, weighing benefits/burdens of treatment options, for clarification of goals of treatment. Additionally will assist with any symptoms of palliative concern. . (Kassi Tang) Time Spent Time Periods: 11:15-12:30 Total Floor Time (mins): 75 Face to Face Time (mins): 45 >50% Counseling/Coord of Care: Yes (Kassi Tang) Attestation To help prompt me to consider important information that might be impacting today's encounter and assessment, information from prior notes written by myself or my colleagues may have been "brought forward" into today's note. My signature on this note, however, is an attestation that I personally performed the exam, history, and/or decision-making noted today, and, unless otherwise indicated, the interactions with patient, family, and staff as well as the review of records all occurred today. I also attest that the listed assessment and stated plan reflect my best clinical judgment today based on the combination of historical information, prior notes, and today's exam/ interactions. When time spent is documented, it refers only to time spent today by the signer, or if indicated, combined time spent today by collaborating physician/nurse practitioner. . (Kassi Tang) Collaborating MD Comments Chart reviewed. Case discussed with palliative care ANDROID IOS DEVELOPER. Above ANDROID IOS DEVELOPER note reviewed and I concur. . (Jreemie Small MD) Kassi Tang Dec 19, 2017 16:46 Jeremie Small MD Dec 26, 2017 17:14
--- NOTE | 2017-12-19 17:36 | HHI.NSPN ---
(Tate Cisneros) History Chief Complaint: Confusion and disorientation with expressive aphasia. (Tate Cisneros) Interval History A 67-year-old female who was admitted on 12/15/2017 after she presented to the emergency room. She was Reynolds acted. She was found by a hospital social worker at home unable to care for self. Patient is very confused and also has some word-finding difficulty and cannot relate any history to me. When asked if she has a headache, she says yes. When asked if she has any medical problems, she states some physical ailments, but cannot delineate any further. When asked if she has any numbness or paresthesias, she will give an ambivalent answer. She was found to have an E. coli urinary tract infection and has been on antibiotics. CT scan of the head obtained without contrast today reveals a large left cribriform plate skull base frontal mass which is on the left side. It also extends on the right side and measures about 5.5 cm in diameter with surrounding edema involving the left frontal lobe extending posteriorly with a mass effect on the ventricles and frontal horns. Neurosurgery has subsequently been consulted for further treatment recommendations. 12/18/17: Pt awake and alert but confused and disoriented. She has difficulty expressing her thoughts and gets frustrated. History is difficulty to obtain secondary to the expressive aphasia. 12/19/17: Pt with some improvement in her speech and is able to answer some questions with short appropriate response at times which is better than yesterday. Still significant expressive aphasia. (Tate Cisneros) Review of Systems General: Negative for: fever, chills, insomnia Respiratory: Negative for: shortness of breath, cough, sputum Cardiovascular: Negative for: chest pain Gastrointestinal: Negative for: nausea, vomitting, diarrhea, constipation ( Tate Cisneros) System Review Comments Pt able to answer questions better with yes/no and seems appropriate. (Tate Cisneros) Exam Results Vital Signs Date Time Temp Pulse Resp B/P (MAP) Pulse Ox O2 Delivery O2 Flow Rate FiO2 12/19/17 15:43 98.4 69 18 168/74 (105) 94 12/16/17 21:53 Room Air Intake and Output 12/19/17 12/19/17 12/19/17 07:59 15:59 23:59 Intake Total 550 ml 480 ml Balance 550 ml 480 ml (Tate Cisneros) Physical Examination General: Pt awake and alert resting in bed in no acute distress. Eyes: Pupils equal and sclera anicteric. Resp: CTA bilaterally Heart: NSR no murmurs Abd: Soft positive bs Skin: No cyanosis or erythema Muscle: Moves all 4 extremities with good strength although some difficulty following commands. Neuro: Pt awake and alert. Pupils 3mm bilaterally reactive bilaterally. She follows commands but has difficulty follow some more complex commands. She has moderate expressive aphasia that has some improvement from yesterday although still significant expressive aphasia and cognitive deficits. She does answer some yes/no questions. (Tate Cisneros) Lab, Micro, Other Results Last Impressions Chest X-Ray 12/19/17 0000 Signed Impressions: Service Date/Time: Tuesday, December 19, 2017 12:49 - CONCLUSION: Mild left base infiltrates. Tommie Solis MD Head CT 12/17/17 0000 Signed Impressions: Service Date/Time: Sunday, December 17, 2017 20:28 - CONCLUSION: Large frontal skull base and left parafalcine brain mass. Tommie Solis MD Laboratory Tests Test 12/19/17 08:45 White Blood Count 16.7 TH/MM3 Red Blood Count 5.15 MIL/MM3 Hemoglobin 15.4 GM/DL Hematocrit 46.0 % Mean Corpuscular Volume 89.2 FL Mean Corpuscular Hemoglobin 29.8 PG Mean Corpuscular Hemoglobin Concent 33.4 % Red Cell Distribution Width 14.0 % Platelet Count 324 TH/MM3 Mean Platelet Volume 8.6 FL Neutrophils (%) (Auto) 87.6 % Lymphocytes (%) (Auto) 6.7 % Monocytes (%) (Auto) 4.9 % Eosinophils (%) (Auto) 0.5 % Basophils (%) (Auto) 0.3 % Neutrophils # (Auto) 14.6 TH/MM3 Lymphocytes # (Auto) 1.1 TH/MM3 Monocytes # (Auto) 0.8 TH/MM3 Eosinophils # (Auto) 0.1 TH/MM3 Basophils # (Auto) 0.1 TH/MM3 CBC Comment DIFF FINAL Differential Comment Blood Urea Nitrogen 21 MG/DL Creatinine 0.99 MG/DL Random Glucose 123 MG/DL Calcium Level 9.8 MG/DL Sodium Level 138 MEQ/L Potassium Level 3.4 MEQ/L Chloride Level 105 MEQ/L Carbon Dioxide Level 23.6 MEQ/L Anion Gap 9 MEQ/L Estimat Glomerular Filtration Rate 56 ML/MIN 12/19/17 12/19/17 12/20/17 14:59 22:59 06:59 Intake Total 480 ml Balance 480 ml Intake Oral 480 ml # Voids 3 # Bowel Movements 3 (Tate Cisneros) Medical Decision Making Impression and Plan A: 1. Large left frontal skull base cribriform plate mass which extends into the right side to cross the midline along with surrounding vasogenic edema extending into the posterior frontal lobe with mass effect on the ventricles. This is concerning for likely meningioma, but other possibilities also need to be entertained. 2. Apparent progressive cognitive decline with dementia which could be related to this bifrontal large mass. 3. Unregulated hypertension. 4. Urinary tract infection. PLAN Continue with Decadron which appears to have helped some with her speech. MRI Brain, MRA and MRV has been ordered. Continue with Neuro checks. Pt has a sitter in the room. Further plan depending on the results of the MRI scans. Sister is in the room and Dr. Dunbar has discussed the plan with her and the patient with medicine and palliative care also present. We will obtain an MRI, MRA and MRV of the brain for surgical planning. Once this is obtained we will further discuss surgery but did inform her that based on the current CT findings our recommendation would be to remove the mass as much as possible and relieve some of the compression on the brain with the understanding that it may not be possible to remove the whole mass and she may need additional treatment afterwords with radiation depending on the final pathology. We also discussed that this would be a complex surgery with risks, but the risk of leaving it alone include increased swelling resulting in coma and . Once we have the MRI we will discuss further the surgery and risks but for now she agrees with the MRI and also agrees with our current discussion that she will likely need surgery. (Tate Cisneros) Attending Statement The exam, history, and the medical decision-making described in the above note were completed with the assistance of the mid-level provider. I reviewed and agree with the findings presented. I attest that I had a [id number] encounter with the patient on the same day, and personally performed and documented my assessment and findings in the medical record. (Michael Dunbar MD) Tate Cisneros Dec 19, 2017 17:36 Michael Dunbar MD Dec 19, 2017 17:51
--- NOTE | 2017-12-19 18:35 | MG ---
cc: SYED RANDLE M.D. Lab No: Date: 12/19/2017 Age: Sex: F Race: An EEG was obtained on this 67-year-old patient being evaluated for a brain mass, possible seizures. The study shows continuous left more than right hemispheric slowing characterized by theta and some delta rhythms. There are beta rhythms frontally. There is alpha activity posteriorly, but even when the patient is awake, there continues to be some intermixed slowing. There is no ictal pattern. Photic stimulation was unremarkable. INTERPRETATION: Abnormal EEG because of left hemisphere slowing compatible with underlying structural abnormality but no epileptiform features are present. MD JOE Basurto/MARIVEL /6:22 PM /6:29 PM
[2017-12-19 20:58] VITALS: BP 163/78; PULSE 94; RESP 18; TEMP 97.4; O2SAT 94
[2017-12-20 01:44] VITALS: BP 168/73; PULSE 80; RESP 18; TEMP 98.2; O2SAT 94
[2017-12-20 05:12] VITALS: BP 143/63; PULSE 75; RESP 18; TEMP 97.5; O2SAT 96
[2017-12-20] MEDS: HEPARIN SODIUM - SQ 10,000 UNITS/ML VIAL SQ SCH ×3 (05:19→21:38)
[2017-12-20] MEDS: DEXAMETHASONE SOD PHOS 4 MG/ML VIAL IV PUSH SCH ×3 (05:20→21:38)
[2017-12-20 08:21] VITALS: BP 149/70; PULSE 68; RESP 18; TEMP 98.3; O2SAT 94
[2017-12-20] MEDS: SODIUM CHLORIDE 0.9% FLUSH 10 ML FLUSH IV FLUSH SCH ×2 (08:41→21:38)
[2017-12-20] MEDS: levETIRAcetam 500 MG TAB PO SCH ×2 (08:41→21:37)
[2017-12-20] MEDS: NITROFURANTOIN MONOHYD MACROCR 100 MG CAP PO SCH ×2 (08:42→17:31)
[2017-12-20] MEDS: NIFEdipine 30 MG SUSTAINED RELEASE TAB PO SCH (08:42)
[2017-12-20] MEDS: PANTOPRAZOLE SOD 40 MG DELAYED RELEASE TAB PO SCH (08:42)
[2017-12-20 12:00] VITALS: BP 137/64; PULSE 74; RESP 18; TEMP 97.9; O2SAT 96
[2017-12-20] MEDS ORDERED: LORazepam 1 MG TAB PO ONE (12:15)
--- NOTE | 2017-12-20 13:20 | HHI.NSPN ---
(Tate Cisneros) History Chief Complaint: Confusion and disorientation with expressive aphasia. (Tate Cisneros) Interval History A 67-year-old female who was admitted on 12/15/2017 after she presented to the emergency room. She was Reynolds acted. She was found by a psych social worker at home unable to care for self. Patient is very confused and also has some word-finding difficulty and cannot relate any history to me. When asked if she has a headache, she says yes. When asked if she has any medical problems, she states some physical ailments, but cannot delineate any further. When asked if she has any numbness or paresthesias, she will give an ambivalent answer. She was found to have an E. coli urinary tract infection and has been on antibiotics. CT scan of the head obtained without contrast today reveals a large left cribriform plate skull base frontal mass which is on the left side. It also extends on the right side and measures about 5.5 cm in diameter with surrounding edema involving the left frontal lobe extending posteriorly with a mass effect on the ventricles and frontal horns. Neurosurgery has subsequently been consulted for further treatment recommendations. 12/18/17: Pt awake and alert but confused and disoriented. She has difficulty expressing her thoughts and gets frustrated. History is difficulty to obtain secondary to the expressive aphasia. 12/19/17: Pt with some improvement in her speech and is able to answer some questions with short appropriate response at times which is better than yesterday. Still significant expressive aphasia. 12/20/17: Pt continues to have some improvement in her speech and is able to answer some questions with short sentences that at times are appropriate. Still has expressive aphasia and some confusion. (Tate Cisneros) Review of Systems General: Negative for: fever, chills, insomnia Respiratory: Negative for: shortness of breath, cough, sputum Cardiovascular: Negative for: chest pain Gastrointestinal: Negative for: nausea, vomitting, diarrhea, constipation ( Tate Cisneros) Exam Results Vital Signs Date Time Temp Pulse Resp B/P (MAP) Pulse Ox O2 Delivery O2 Flow Rate FiO2 12/20/17 12:00 97.9 74 18 137/64 (88) 96 12/16/17 21:53 Room Air (Tate Cisneros) Physical Examination General: Pt awake and alert sitting up in bed in no acute distress. Eyes: Pupils equal and sclera anicteric. Resp: CTA bilaterally Heart: NSR no murmurs Abd: Soft positive bs Skin: No cyanosis or erythema Muscle: Moves all 4 extremities with good strength although some difficulty following complex commands. Neuro: Pt awake and alert. Pupils 3mm bilaterally reactive bilaterally. She follows commands but has difficulty follow some more complex commands. She has moderate expressive aphasia that has some improvement from yesterday although still expressive aphasia and cognitive deficits. She does answer yes/no questions and is appropriate at times. (Tate Cisneros) Lab, Micro, Other Results Last Impressions Chest X-Ray 12/19/17 0000 Signed Impressions: Service Date/Time: Tuesday, December 19, 2017 12:49 - CONCLUSION: Mild left base infiltrates. Tommie Solis MD Head CT 12/17/17 0000 Signed Impressions: Service Date/Time: Sunday, December 17, 2017 20:28 - CONCLUSION: Large frontal skull base and left parafalcine brain mass. Tommie Solis MD (Tate Cisneros) Medical Decision Making Impression and Plan A: 1. Large left frontal skull base cribriform plate mass which extends into the right side to cross the midline along with surrounding vasogenic edema extending into the posterior frontal lobe with mass effect on the ventricles. This is concerning for likely meningioma, but other possibilities also need to be entertained. 2. Apparent progressive cognitive decline with dementia which could be related to this bifrontal large mass. 3. Unregulated hypertension. 4. Urinary tract infection. PLAN Continue with Decadron which appears to have helped some with her speech. MRI Brain, MRA and MRV has been ordered. Continue with Neuro checks. Further plan depending on the results of the MRI scans. See previous note for tentative plan and discussion with sister. (Tate Cisneros) Attending Statement The exam, history, and the medical decision-making described in the above note were completed with the assistance of the mid-level provider. I reviewed and agree with the findings presented. I attest that I had a [id number] encounter with the patient on the same day, and personally performed and documented my assessment and findings in the medical record. MRI/MRA/MRV of the brain is still pending and we'll review when obtained with further treatment recommendations thereafter. (Michael Dunbar MD) Tate Cisneros Dec 20, 2017 13:20 Michael Dunbar MD Dec 20, 2017 14:58
[2017-12-20] MEDS: SODIUM CHLOR 0.9% 1000 ML INJ 1,000 ML IV SCH (14:39)
--- NOTE | 2017-12-20 15:17 | HHI.PR ---
Subjective Remarks Patient says the margin of the bed. No pneumothorax or sensory deficits. She is alert and oriented by name, date of , location not by dates or year. Poor insight and judgment into her medical condition. She denies having any headaches. Objective Vitals Vital Signs Date Time Temp Pulse Resp B/P (MAP) Pulse Ox O2 Delivery O2 Flow Rate FiO2 12/20/17 12:00 97.9 74 18 137/64 (88) 96 12/20/17 08:21 98.3 68 18 149/70 (96) 94 12/20/17 05:12 97.5 75 18 143/63 (89) 96 12/20/17 01:44 98.2 80 18 168/73 (104) 94 12/19/17 20:58 97.4 94 18 163/78 (106) 94 12/19/17 15:43 98.4 69 18 168/74 (105) 94 I/O 12/19/17 12/19/17 12/19/17 12/20/17 12/20/17 12/20/17 06:59 14:59 22:59 06:59 14:59 22:59 Intake Total 550 ml 480 ml 1471 ml Balance 550 ml 480 ml 1471 ml Intake Oral 550 ml 480 ml 480 ml IV Total 991 ml # Voids 2 3 1 2 # Bowel Movements 1 3 1 1 Result Diagram: 12/19/17 0845 12/19/17 0845 Imaging Last Impressions Chest X-Ray 12/19/17 0000 Signed Impressions: Service Date/Time: Tuesday, December 19, 2017 12:49 - CONCLUSION: Mild left base infiltrates. Tommie Solis MD Head CT 12/17/17 0000 Signed Impressions: Service Date/Time: Sunday, December 17, 2017 20:28 - CONCLUSION: Large frontal skull base and left parafalcine brain mass. Tommie Solis MD Objective Remarks GENERAL: Well-nourished, well-developed female patient in NAD. HEENT: Normocephalic. Atraumatic.Pupils equal and round. Mucous membranes pink and moist. CARDIOVASCULAR: Regular rate and rhythm. S1, S2 noted. No murmur appreciated. RESPIRATORY: No accessory muscle use. Clear to auscultation. Breath sounds equal bilaterally. GASTROINTESTINAL: Abdomen soft, non-tender, nondistended. Normoactive bowel sounds x4. MUSCULOSKELETAL: No obvious deformities. Extremities without clubbing, cyanosis , or edema. NEUROLOGICAL: Awake and alert, oriented to self only. No obvious cranial nerve deficits. Motor grossly within normal limits. Normal speech. PSYCHIATRIC: Flat affect; insight and judgment limited. A/P Assessment and Plan 67-year-old female with dementia, presented under Reynolds Act from [facility] for poor living conditions and unable to care for self Brain Mass: Head CT images reviewed, shows >5cm left frontal mass with surrounding edema causing significant midline shift towards the right and downward transtentorial mass effect -Consulted neurosurgery -Brain MRI/MRA/MRV reviewed -Continue on IV Decadron for edema -On Keppra 500mg bid for seizure prophylaxis -Neuro checks, Seizure precautions. Neurology ff. Consulted neurosurgery Dr Dylan hart. -Consult palliative care to assist -Consult psychiatry to eval capacity, patient does not appear to understand diagnosis and unable to make medical decisions Altered mental status 2/2 above Patient eloped from the hospital 12/18/27 twice, Reynolds acted , consult psychiatry also for capacity. Patient sister Js says their mother is the POA however their mother is also in the hospital and she is the POA for the mother as well. Urinary tract infection: UA consistent with UTI with large leukocyte esterase, 23 WBCs, many bacteria, nitrite positive. -Urine culture with E Coli, pansensitive. -Will complete 7 day course of Macrobid BID (stop date 12/23) Dementia, Unable to care for self: Admitted under Reynolds act by the department of social media manager. B12, folate, TSH all wnl. RPR negative. -Evaluated by psychiatry upon arrival and reynolds act lifted. -Consult Neurology, appreciate assistance -Case management consulted to assist with placement Hypokalemia: Persistent despite by mouth repletion -Given multiple doses of po KCl -Mag level normal -Repeat BMP shows improvement. Monitor and replace. ERIKA: Suspect due to poor oral intake. Monitor kidney indices -Improving s/p IVF -Avoid nephrotoxic agents -Repeat BMP DVT Prophylaxis: Heparin Discussed with the patient, nurse, patient sister Js at bedside, Tate CRESPO from neurosurgery Angie Larkin MD Dec 20, 2017 15:17
--- NOTE | 2017-12-20 15:20 | HHI.HCPN ---
Reason for visit a. To assist with evaluation and management of symptoms including: Confusion , agitation b. To assist medical decision maker(s) with: better understanding of current medical conditions; weighing benefits/burdens of medical treatment options; making medical treatment decisions. (Kassi Tang) Subjective/Interval History She is improving in her ability to find words today but increasingly paranoid. She is refusing to provide her sister with location of their mother's bank information, Social Security card and identification, which is required for fpc admission. She states that she has" been using mom's money to pay my own bills". She states that she does not trust anyone and is not giving out any information. MRI, MRA and MRV are pending. No new laboratory studies have been drawn today. She is sitting on the side of the bed, visiting with her sister and cousin. She is mildly agitated, fearful and paranoid. She denies that she has a tumor, then states she has had this tumor for very long time and it is not bothering her. She does remember the doctor talking to her today and occasionally makes an appropriate statement. . Family/friend interactions Patient's cousin and sister are at bedside today. The cousin, who lives in [place], states that the cognitive decline has been present for quite some time. She has noted the paranoid behavior over the last few years. The sister, Karla, lives in [place] and has not had contact with the mother or sister in person for approximately 4 years. The sister is proceeding to complete the legal steps to become power of consumer attorney for both her mother and her sister so that legal and financial matters can be managed. Clinical update was given and purpose of imaging studies explained to patient and family. . (Kassi Tang) Advance Directives Health Care Surrogate: Never completed Durable Power of Receptionist/Telephone Operator: Never completed (Kassi Tang) Advance Directive Specifics Health Care Surrogate(s): Her sister, Karla Keller, would be healthcare proxy by [place] statutes. . Documented care wishes: No living will available. . (Kassi Tang) Objective Vital Signs Date Time Temp Pulse Resp B/P (MAP) Pulse Ox O2 Delivery O2 Flow Rate FiO2 12/20/17 12:00 97.9 74 18 137/64 (88) 96 12/20/17 08:21 98.3 68 18 149/70 (96) 94 12/20/17 05:12 97.5 75 18 143/63 (89) 96 12/20/17 01:44 98.2 80 18 168/73 (104) 94 12/19/17 20:58 97.4 94 18 163/78 (106) 94 12/19/17 15:43 98.4 69 18 168/74 (105) 94 Intake & Output 12/20/17 12/20/17 07:00 19:00 Intake Total 1471 ml Balance 1471 ml Intake Oral 480 ml IV Total 991 ml # Voids 1 2 # Bowel Movements 1 1 Physical Exam CONSTITUTIONAL/GENERAL: This is an adequately nourished patient, in no apparent distress. TUBES/LINES/DRAINS: PIV left forearm. SKIN: No jaundice, rashes, or lesions. Ecchymoses on upper extremities. No wounds seen anteriorly. Skin temperature appropriate. Not diaphoretic. HEAD: Atraumatic. Normocephalic. EYES: Pupils equal and round and reactive. Extraocular motions intact. No scleral icterus. No injection or drainage. Fundi not examined. ENT: Hearing grossly normal. Nose without bleeding or purulent drainage. Throat without visible erythema, exudates, masses, or lesions. NECK: Trachea midline. Supple, nontender. No palpable thyroid enlargement or nodularity. CARDIOVASCULAR: Regular rate and rhythm without murmurs, gallops, or rubs. No JVD. Peripheral pulses symmetric. RESPIRATORY/CHEST: Symmetric, unlabored respirations. Clear to auscultation. Breath sounds equal bilaterally. No wheezes, rales, or rhonchi. GASTROINTESTINAL: Abdomen soft, non-tender, nondistended. No hepato-splenomegaly , or palpable masses. No guarding. Bowel sounds present. GENITOURINARY: Without palpable bladder distension. MUSCULOSKELETAL: Extremities without clubbing, cyanosis, or edema. No joint tenderness or effusion noted. No calf tenderness. No mottling or clubbing. LYMPHATICS: No palpable cervical or supraclavicular adenopathy. NEUROLOGICAL: Awake and alert. Motor and sensory grossly within normal limits. Sitting on side of bed, talking to family. Oriented to self. PSYCHIATRIC: Anxious, paranoid, cooperative . (Kassi Tang Diagnostic Tests Laboratory Laboratory Tests Test 12/18/17 06:15 12/19/17 08:45 Blood Urea Nitrogen 14 MG/DL (7-18) 21 MG/DL (7-18) Creatinine 1.04 MG/DL (0.50-1.00) 0.99 MG/DL (0.50-1.00) Random Glucose 174 MG/DL (74-106) 123 MG/DL (74-106) Calcium Level 9.7 MG/DL (8.5-10.1) 9.8 MG/DL (8.5-10.1) Sodium Level 139 MEQ/L (136-145) 138 MEQ/L (136-145) Potassium Level 4.8 MEQ/L (3.5-5.1) 3.4 MEQ/L (3.5-5.1) Chloride Level 107 MEQ/L (98-107) 105 MEQ/L (98-107) Carbon Dioxide Level 22.1 MEQ/L (21.0-32.0) 23.6 MEQ/L (21.0-32.0) Anion Gap 10 MEQ/L (5-15) 9 MEQ/L (5-15) Estimat Glomerular Filtration Rate 53 ML/MIN (>89) 56 ML/MIN (>89) Rapid Plasma Reagin NON-REACTIVE (NON-REACTVE) White Blood Count 16.7 TH/MM3 (4.0-11.0) Red Blood Count 5.15 MIL/MM3 (4.00-5.30) Hemoglobin 15.4 GM/DL (11.6-15.3) Hematocrit 46.0 % (35.0-46.0) Mean Corpuscular Volume 89.2 FL (80.0-100.0) Mean Corpuscular Hemoglobin 29.8 PG (27.0-34.0) Mean Corpuscular Hemoglobin Concent 33.4 % (32.0-36.0) Red Cell Distribution Width 14.0 % (11.6-17.2) Platelet Count 324 TH/MM3 (150-450) Mean Platelet Volume 8.6 FL (7.0-11.0) Neutrophils (%) (Auto) 87.6 % (16.0-70.0) Lymphocytes (%) (Auto) 6.7 % (9.0-44.0) Monocytes (%) (Auto) 4.9 % (0.0-8.0) Eosinophils (%) (Auto) 0.5 % (0.0-4.0) Basophils (%) (Auto) 0.3 % (0.0-2.0) Neutrophils # (Auto) 14.6 TH/MM3 (1.8-7.7) Lymphocytes # (Auto) 1.1 TH/MM3 (1.0-4.8) Monocytes # (Auto) 0.8 TH/MM3 (0-0.9) Eosinophils # (Auto) 0.1 TH/MM3 (0-0.4) Basophils # (Auto) 0.1 TH/MM3 (0-0.2) CBC Comment DIFF FINAL Differential Comment . (Kassi Tang) Result Diagram: 12/19/17 0845 12/19/17 0845 Microbiology Microbiology Date/Time Source Procedure Growth Status 12/15/17 20:30 Urine Random Urine Urine Culture - Final Escherichia Coli Complete . Imaging Last Impressions Chest X-Ray 12/19/17 0000 Signed Impressions: Service Date/Time: Tuesday, December 19, 2017 12:49 - CONCLUSION: Mild left base infiltrates. Tommie Solis MD Head CT 12/17/17 0000 Signed Impressions: Service Date/Time: Sunday, December 17, 2017 20:28 - CONCLUSION: Large frontal skull base and left parafalcine brain mass. Tommie Solis MD (Kassi Tang) Assessment and Plan Disease Oriented Problem List: (1) Brain mass (2) Confusion (3) Dementia Symptom Scale: (1) Agitation 0-10 Scale: Unable to quantify (Patient is mildly agitated, pacing in the room. ) (2) Confusion 0-10 Scale: Unable to quantify (Not oriented to time place or purpose.) Pertinent Non-Medical Issues Psychosocial:She was born in [place] and moved to [place] in the mid s. She was never and has no children. 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 Spiritual:Spiritual in her own way, but not associated with any organized quaker. Legal: She is currently not capacitated and under a Reynolds act. Ethical issues impacting care: Patient is currently refusing care. . Important Contacts Sister: Karla Keller DCF electrician radio, Chelsey Bourgeois . Prognosis Her prognosis is guarded. In addition to what is believed to be baseline dementia she also has a 5.5 cm brain mass with a significant midline shift and is pending neurosurgery workup. She is currently refusing the MRA and MRV. Without diagnosis, treatment would be compromised, likely leading to further complications and decline. . Code Status: Full Code Plan PLAN: Legal decision maker: At this time, the patient is not capacitated. Per my discussion with her sister, she has never been , has no children. Her [place] statutes her sister, Karla Castro would be the legal proxy decision- maker. The patient's mother has severe Alzheimer's and is herself now hospitalized. There are no other known relatives. His sister is willing to be the legal decision maker. Goals: To be determined. CODE STATUS: Full code by default, pending sister's evaluation of the situation. SYMPTOMS: * Confusion: She is currently oriented to self and unable to grasp the ramifications of her current situation. She lacks the insight and judgment to be able to understand her current diagnosis. Neurosurgery has requested further imaging studies, which the patient is now agreeing to. As she is under a Reynolds act, she lacks the capacity to make that decision. She has been evaluated by psychiatry and found not capacitated for decision-making. * Agitation: She is more paranoid today. This appears to be related to financial and legal issues and control over her mother's finances. At this time , Karla has been made power of consumer attorney over her mother's affairs but the patient is refusing to provide information as to the whereabouts of legal and financial papers, stating she does not trust her sister, her cousin or anyone else. MRI/MRA/MRV is currently pending. Per Dr. Dunbar's discussion yesterday , surgery is planned for likely early next week Palliative care will continue to follow the patient during hospital course as condition evolves, to assist patient/decision-maker with understanding of their medical conditions, weighing benefits/burdens of treatment options, for clarification of goals of treatment. Additionally will assist with any symptoms of palliative concern. . (Kassi Tang) Attestation To help prompt me to consider important information that might be impacting today's encounter and assessment, information from prior notes written by myself or my colleagues may have been "brought forward" into today's note. My signature on this note, however, is an attestation that I personally performed the exam, history, and/or decision-making noted today, and, unless otherwise indicated, the interactions with patient, family, and staff as well as the review of records all occurred today. I also attest that the listed assessment and stated plan reflect my best clinical judgment today based on the combination of historical information, prior notes, and today's exam/ interactions. When time spent is documented, it refers only to time spent today by the signer, or if indicated, combined time spent today by collaborating physician/nurse practitioner. . (Kassi Tang) Collaborating MD Comments Chart reviewed. Case discussed with palliative care DRAUGHTSMAN. Above DRAUGHTSMAN note reviewed and I concur. . (Jeremie Small MD) Kassi Tang Dec 20, 2017 15:20 Jeremie Small MD Dec 26, 2017 17:22
[2017-12-20 15:52] LABS: TOXOPLASMA AB IGG <7.20
[2017-12-20 15:55] VITALS: BP 174/77; PULSE 90; RESP 19; TEMP 97.8; O2SAT 96
[2017-12-20] MEDS ORDERED: GADODIAMIDE PF 287 MG/ML 20 ML VIAL (for RAD MRI) IVCONTRAST ONE (16:00)
--- NOTE | 2017-12-20 16:32 | RADRPT ---
EXAM DATE/TIME: 12/20/2017 15:36 [facility] COMPARISON: CT BRAIN W CONTRAST, December 17, 2017, 20:28. INDICATIONS : Mass. CONTRAST: 20 cc Omniscan (gadodiamide) IV MEDICAL HISTORY : None. SURGICAL HISTORY : Breast reduction. ENCOUNTER: Initial ACUITY: 1 day PAIN SCORE: 0/10 LOCATION: Head. TECHNIQUE: Multiplanar, multisequence MRI of the brain was performed both prior to and following the administrat ion of paramagnetic contrast. FINDINGS: CEREBRUM: There are 2 masses in the frontal region. The larger mass is left parafalcine, measures 5.6 x 4.0 cm , demonstrates a heterogeneous moderate intensity contrast enhancement pattern, causes 14 mm midline shift towards the right, with an associated significant cerebral edema in the left hemisphere and tra cking along the anterior horn of the corpus callosum. A 2nd mass is along the planum sphenoidale wit h epi centered in the midline and measures 3.2 x 3.6 cm in axial dimension and 1.6 cm in superior/inf erior dimension. The enhancement pattern in the plane mass is fairly homogeneous and the margins are lobulated but fairly smooth. The mass extends posteriorly and causes partial obscuration of the opt ic chiasm. No evidence of acute blood products neither mass. POSTERIOR FOSSA: The cerebellum and brainstem are intact. The 4th ventricle is midline. The cerebellopontine angle is unremarkable. The cerebellar tonsils are normal in position. DIFFUSION IMAGING: No focal areas of restricted diffusion are seen. No evidence of acute infarction. EXTRACRANIAL: The visualized portions of the orbits and paranasal sinuses are unremarkable. POST-CONTRAST: No abnormal areas of parenchymal or dural enhancement. No evidence of blood-brain barrier breakdown. CONCLUSION: 1. There are 2 supratentorial masses, one is mid convexity frontal on the left side causing significa nt midline shift, ventricular effacement and with edema extending along the anterior corpus callosum and into the left parietal region. A 2nd mass in along the planum sphenoidale and probably causes ma ss effect on the optic chiasm.. Both masses demonstrate a fairly homogeneous pattern of enhancement. 2. No focal abnormalities of the posterior fossa. Otis Huff MD on December 20, 2017 at 16:16 Board Certified Radiologist. This report was verified electronically.
--- NOTE | 2017-12-20 16:36 | RADRPT ---
EXAM DATE/TIME: 12/20/2017 15:36 [facility] COMPARISON: MRI BRAIN W & W/O CONTRAST, December 20, 2017, 15:36. INDICATIONS : Mass. MEDICAL HISTORY : None. SURGICAL HISTORY : Breast reduction. ENCOUNTER: Initial ACUITY: 1 day PAIN SCORE: 0/10 LOCATION: Head. Please note a normal MRA of the brain does not entirely exclude the possibility of a small aneurysm, nor the possibility of distal intracranial vessel disease. TECHNIQUE: 3D time of flight MRA was performed. Source images, multiplanar STS MIP, and 3D volume MIP reconstru ctions were reviewed. FINDINGS: There is excellent visualization of the major intracranial arteries out to the second-order branch ve ssels. The anterior cerebral arteries are being displaced towards the patient's right. There is no ev idence for aneurysm, vessel truncation or stenosis, and no evidence for vascular malformation. CONCLUSION: 1. The anterior cerebral arteries are being displaced towards the patient's right secondary to the le ft frontal lobe mass. Otherwise, unremarkable exam. Otis Rae Jr., MD on December 20, 2017 at 16:32 Board Certified Radiologist. This report was verified electronically.
--- NOTE | 2017-12-20 16:47 | RADRPT ---
EXAM DATE/TIME: 12/20/2017 15:36 COMPARISON: MRI BRAIN W & W/O CONTRAST, December 20, 2017, 15:36. INDICATIONS : Neoplasm. CONTRAST: 20 cc Omniscan (gadodiamide) IV MEDICAL HISTORY : None. SURGICAL HISTORY : Breast reduction. ENCOUNTER: Initial ACUITY: 2 day PAIN SCORE: 0/10 LOCATION: Head. TECHNIQUE: [id number] and contrast-enhanced MR cerebral venography is performed. Reconstruction algorithms i nclude rotating volume rendering, dynamic and sliding thin slab maximum intensity reprojections. FINDINGS: A large frontal extra-axial brain tumor is noted with apparent occlusion or invasion of the anterior most aspect of the superior sagittal sinus. Posterior to the location of the tumor, the sinus is jarrell nt. The transverse and sigmoid sinuses are patent. The deep cerebral venous structures are patent. Ma mariano cortical surface veins are patent. 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 This report was verified electronically.
[2017-12-20 20:00] VITALS: BP 142/81; PULSE 78; RESP 18; TEMP 97.6; O2SAT 96
[2017-12-21] VITALS (7 sets, daily range): BP systolic 135–197; BP diastolic 73–93; PULSE 57–106; RESP 17–20; TEMP 97.2–98.6; O2SAT 95–96
[2017-12-21] MEDS: SODIUM CHLOR 0.9% 1000 ML INJ 1,000 ML IV SCH ×2 (02:00→12:31)
[2017-12-21] MEDS: DEXAMETHASONE SOD PHOS 4 MG/ML VIAL IV PUSH SCH ×3 (05:29→21:23)
[2017-12-21] MEDS: HEPARIN SODIUM - SQ 10,000 UNITS/ML VIAL SQ SCH ×3 (05:29→21:24)
[2017-12-21] MEDS: SODIUM CHLORIDE 0.9% FLUSH 10 ML FLUSH IV FLUSH SCH ×2 (08:47→21:24)
[2017-12-21] MEDS: NITROFURANTOIN MONOHYD MACROCR 100 MG CAP PO SCH ×2 (08:47→16:22)
[2017-12-21] MEDS: NIFEdipine 30 MG SUSTAINED RELEASE TAB PO SCH (08:47)
[2017-12-21] MEDS: levETIRAcetam 500 MG TAB PO SCH ×2 (08:47→21:24)
[2017-12-21] MEDS: PANTOPRAZOLE SOD 40 MG DELAYED RELEASE TAB PO SCH (08:47)
[2017-12-21 10:13] LABS: TOXOPLASMA AB IGM Negative (Negative)
--- NOTE | 2017-12-21 11:05 | HHI.HCPN ---
Reason for visit a. To assist with evaluation and management of symptoms including: Confusion , agitation b. To assist medical decision maker(s) with: better understanding of current medical conditions; weighing benefits/burdens of medical treatment options; making medical treatment decisions. (Kassi Tang) Subjective/Interval History Patient seen to follow-up on goals of care and symptom management. She underwent MRI/MRA/MRV yesterday. MRI showed 2 supratentorial masses. One is mid convexity frontal on the left side causing significant midline shift of 14 mm, ventricular effacement and edema extending along the anterior corpus callosum and into the left parietal region. This second mass is along the planum sphenoidale and probably causes mass-effect on the optic chiasm. No evidence of acute blood products were seen near either mass. Patient appears less paranoid today with improved clarity of speech. She still has difficulty with word finding and maintaining train of thought. She states that she can feel that something is different on the left side of her head but she is unable to describe it. She denies any vision changes, hearing changes, numbness, tingling, weakness, swallowing difficulty or other changes. She simply states that she knows something is different on the left side of her head. She has multiple questions related to the potential surgery. She wants to know the projected level of dysfunction she might have after surgery, and how long her projected recovery time is. She also questions what her lifespan and symptoms might be if she chooses not to have the surgery. These are questions which need to be addressed with neurosurgery and today's evaluation is pending. Laboratory findings show a negative result for toxoplasma IgG and IgM antibodies. No other new laboratory studies. . Family/friend interactions I did speak with the sister, Karla, this morning and she states that she had a long talk with her sister last night, when it was quiet and her sister was very clear and less paranoid. She states that her sister told her she did not wish to undergo the surgery and was aware that not doing so would cause her in a short time. At the same time the patient expressed her wish to see the images as she did not understand the urgency with which the surgery was being presented. She wishes to address the images with the neurosurgeon for a clear explanation to alleviate her hesitation and allow her to participate in decision -making. . (Kassi Tang) Advance Directives Living Will: Never completed Health Care Surrogate: Never completed Durable Power of Rn Telephonic: Never completed (Kassi Tang) Advance Directive Specifics Health Care Surrogate(s): Her sister, Karla Keller, would be healthcare proxy by [place] statutes. . Documented care wishes: No living will available. . (Kassi Tang) Objective Vital Signs Date Time Temp Pulse Resp B/P (MAP) Pulse Ox O2 Delivery O2 Flow Rate FiO2 12/21/17 08:48 98.6 73 19 181/83 (115) 96 12/21/17 05:24 98.4 57 17 160/73 (102) 95 12/21/17 00:53 98.3 70 17 135/75 (95) 95 12/20/17 20:00 97.6 78 18 142/81 (101) 96 12/20/17 15:55 97.8 90 19 174/77 (109) 96 12/20/17 12:00 97.9 74 18 137/64 (88) 96 Intake & Output 12/21/17 12/21/17 07:00 19:00 Intake Total 240 ml Balance 240 ml Intake Oral 240 ml # Voids 3 Physical Exam CONSTITUTIONAL/GENERAL: This is an adequately nourished patient, in no apparent distress. TUBES/LINES/DRAINS: PIV left forearm. SKIN: No jaundice, rashes, or lesions. Ecchymoses on upper extremities. No wounds seen anteriorly. Skin temperature appropriate. Not diaphoretic. HEAD: Atraumatic. Normocephalic. EYES: Pupils equal and round and reactive. Extraocular motions intact. No scleral icterus. No injection or drainage. Fundi not examined. CARDIOVASCULAR: Regular rate and rhythm without murmurs, gallops, or rubs. No JVD. Peripheral pulses symmetric. RESPIRATORY/CHEST: Symmetric, unlabored respirations. Clear to auscultation. Breath sounds equal bilaterally. No wheezes, rales, or rhonchi. GASTROINTESTINAL: Abdomen soft, non-tender, nondistended. No hepato-splenomegaly , or palpable masses. No guarding. Bowel sounds present. GENITOURINARY: Without palpable bladder distension. MUSCULOSKELETAL: Extremities without clubbing, cyanosis, or edema. No joint tenderness or effusion noted. No calf tenderness. No mottling or clubbing. NEUROLOGICAL: Awake and alert. Motor and sensory grossly within normal limits. Lying in bed, oriented to self, time, place with some hesitation and confusion regarding purpose PSYCHIATRIC: Calm, cooperative . (Kassi Tang) Diagnostic Tests Laboratory Laboratory Tests Test 12/19/17 08:45 White Blood Count 16.7 TH/MM3 (4.0-11.0) Red Blood Count 5.15 MIL/MM3 (4.00-5.30) Hemoglobin 15.4 GM/DL (11.6-15.3) Hematocrit 46.0 % (35.0-46.0) Mean Corpuscular Volume 89.2 FL (80.0-100.0) Mean Corpuscular Hemoglobin 29.8 PG (27.0-34.0) Mean Corpuscular Hemoglobin Concent 33.4 % (32.0-36.0) Red Cell Distribution Width 14.0 % (11.6-17.2) Platelet Count 324 TH/MM3 (150-450) Mean Platelet Volume 8.6 FL (7.0-11.0) Neutrophils (%) (Auto) 87.6 % (16.0-70.0) Lymphocytes (%) (Auto) 6.7 % (9.0-44.0) Monocytes (%) (Auto) 4.9 % (0.0-8.0) Eosinophils (%) (Auto) 0.5 % (0.0-4.0) Basophils (%) (Auto) 0.3 % (0.0-2.0) Neutrophils # (Auto) 14.6 TH/MM3 (1.8-7.7) Lymphocytes # (Auto) 1.1 TH/MM3 (1.0-4.8) Monocytes # (Auto) 0.8 TH/MM3 (0-0.9) Eosinophils # (Auto) 0.1 TH/MM3 (0-0.4) Basophils # (Auto) 0.1 TH/MM3 (0-0.2) CBC Comment DIFF FINAL Differential Comment Blood Urea Nitrogen 21 MG/DL (7-18) Creatinine 0.99 MG/DL (0.50-1.00) Random Glucose 123 MG/DL (74-106) Calcium Level 9.8 MG/DL (8.5-10.1) Sodium Level 138 MEQ/L (136-145) Potassium Level 3.4 MEQ/L (3.5-5.1) Chloride Level 105 MEQ/L (98-107) Carbon Dioxide Level 23.6 MEQ/L (21.0-32.0) Anion Gap 9 MEQ/L (5-15) Estimat Glomerular Filtration Rate 56 ML/MIN (>89) . (Kassi Tang) Result Diagram: 12/19/17 0845 12/19/17 0845 Microbiology Microbiology Date/Time Source Procedure Growth Status 12/15/17 20:30 Urine Random Urine Urine Culture - Final Escherichia Coli Complete . Imaging Last Impressions Head/Brain Mag Res Venography 12/20/17 0000 Signed Impressions: Service Date/Time: November 15:36 - CONCLUSION: Short occlusion of the ventral most aspect of the superior sagittal sinus Tommie Solis MD Head Magnetic Resonance Angiography 12/20/17 0000 Signed Impressions: Service Date/Time: November 15:36 - CONCLUSION: 1. The anterior cerebral arteries are being displaced towards the patient's right secondary to the left frontal lobe mass. Otherwise, unremarkable exam. Otis Rae Jr., MD Brain MRI 12/20/17 0000 Signed Impressions: Service Date/Time: November 15:36 - CONCLUSION: 1. There are 2 supratentorial masses, one is mid convexity frontal on the left side causing significant midline shift, ventricular effacement and with edema extending along the anterior corpus callosum and into the left parietal region. A 2nd mass in along the planum sphenoidale and probably causes mass effect on the optic chiasm.. Both masses demonstrate a fairly homogeneous pattern of enhancement. 2. No focal abnormalities of the posterior fossa. Otis Huff MD Chest X-Ray 12/19/17 0000 Signed Impressions: Service Date/Time: Tuesday, December 19, 2017 12:49 - CONCLUSION: Mild left base infiltrates. Tommie Solis MD Head CT 12/17/17 0000 Signed Impressions: Service Date/Time: Sunday, December 17, 2017 20:28 - CONCLUSION: Large frontal skull base and left parafalcine brain mass. Tommie Solis MD . (Kassi Tang) Assessment and Plan Disease Oriented Problem List: (1) Brain mass (2) Confusion (3) Dementia Symptom Scale: (1) Agitation 0-10 Scale: Unable to quantify (Patient is mildly agitated, pacing in the room. ) (2) Confusion 0-10 Scale: Unable to quantify (Not oriented to time place or purpose.) Pertinent Non-Medical Issues Psychosocial:She was born in [place] and moved to [place] in the mid 80's. She was never and has no children. 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 Spiritual:Spiritual in her own way, but not associated with any organized pentecostalism. Legal: She is currently not capacitated and under a Reynolds act. Ethical issues impacting care: Patient is currently refusing care. . Important Contacts Sister: Karla Keller DCF lending manager, Chelseymary Meierlings . Prognosis Her prognosis is guarded. In addition to what is believed to be baseline dementia she also has a 5.5 cm brain mass with a significant midline shift and is pending neurosurgery workup. She is currently refusing the MRA and MRV. Without diagnosis, treatment would be compromised, likely leading to further complications and decline. . Code Status: Full Code Plan PLAN: Legal decision maker: At this time, the patient is not capacitated. Per my discussion with her sister, she has never been , has no children. Her [place] statutes her sister, Karla Castro would be the legal proxy decision- maker. The patient's mother has severe Alzheimer's and is herself now hospitalized. There are no other known relatives. His sister is willing to be the legal decision maker. Goals: To be determined. CODE STATUS: Full code by default, pending sister's evaluation of the situation. SYMPTOMS: * Confusion: Her orientation seems to be improving. She still lacks the insight and judgment to be able to understand her current diagnosis. As she is under a Reynolds act, she lacks the capacity to make that decision. She has been evaluated by psychiatry and found not capacitated for decision-making. MRI/ MRA/MRV completed, pending update from neurosurgery. * Agitation: She is less paranoid today. Her questions are more reasonable and more situationally based. She is seeking information regarding her diagnosis, prognosis and surgery and addressing questions more reasonably. MRI/MRA/MRV showing [address] Dunbar's discussion yesterday, surgery is planned for likely early next week if patient and decision-maker agree. Palliative care will continue to follow the patient during hospital course as condition evolves, to assist patient/decision-maker with understanding of their medical conditions, weighing benefits/burdens of treatment options, for clarification of goals of treatment. Additionally will assist with any symptoms of palliative concern. . (Kassi Tang) Attestation To help prompt me to consider important information that might be impacting today's encounter and assessment, information from prior notes written by myself or my colleagues may have been "brought forward" into today's note. My signature on this note, however, is an attestation that I personally performed the exam, history, and/or decision-making noted today, and, unless otherwise indicated, the interactions with patient, family, and staff as well as the review of records all occurred today. I also attest that the listed assessment and stated plan reflect my best clinical judgment today based on the combination of historical information, prior notes, and today's exam/ interactions. When time spent is documented, it refers only to time spent today by the signer, or if indicated, combined time spent today by collaborating physician/nurse practitioner. . (Kassi Tang) Collaborating MD Comments Chart reviewed. Case discussed with palliative care SECURITY OFFICER. Above SECURITY OFFICER note reviewed and I concur. . (Jeremie Small MD) Kassi Tang Dec 21, 2017 11:05 Jeremie Small MD Dec 26, 2017 17:28
--- NOTE | 2017-12-21 11:24 | HHI.PR ---
Subjective Remarks The patient is at the margin of the bed. With multiple questions. She is more awake and alert today speech improved. Mentation improved some. No new motor deficit. No headaches. No change in vision. Patient is reconsidering surgery says she is not sure about the outcome, says she will not like to be in the intermediate for a long period of time if she is not improving after the surgery. Palliative care following also. Objective Vitals Vital Signs Date Time Temp Pulse Resp B/P (MAP) Pulse Ox O2 Delivery O2 Flow Rate FiO2 12/21/17 08:48 98.6 73 19 181/83 (115) 96 12/21/17 05:24 98.4 57 17 160/73 (102) 95 12/21/17 00:53 98.3 70 17 135/75 (95) 95 12/20/17 20:00 97.6 78 18 142/81 (101) 96 12/20/17 15:55 97.8 90 19 174/77 (109) 96 12/20/17 12:00 97.9 74 18 137/64 (88) 96 I/O 12/20/17 12/20/17 12/20/17 12/21/17 12/21/17 12/21/17 07:00 15:00 23:00 07:00 15:00 23:00 Intake Total 1471 ml 240 ml Balance 1471 ml 240 ml Intake Oral 480 ml 240 ml IV Total 991 ml # Voids 1 2 1 2 # Bowel Movements 1 1 Result Diagram: 12/19/17 0845 12/19/17 0845 Imaging Last Impressions Head/Brain Mag Res Venography 12/20/17 0000 Signed Impressions: Service Date/Time: November 15:36 - CONCLUSION: Short occlusion of the ventral most aspect of the superior sagittal sinus Tommie Solis MD Head Magnetic Resonance Angiography 12/20/17 0000 Signed Impressions: Service Date/Time: November 15:36 - CONCLUSION: 1. The anterior cerebral arteries are being displaced towards the patient's right secondary to the left frontal lobe mass. Otherwise, unremarkable exam. Otis Rae Jr., MD Brain MRI 12/20/17 0000 Signed Impressions: Service Date/Time: November 15:36 - CONCLUSION: 1. There are 2 supratentorial masses, one is mid convexity frontal on the left side causing significant midline shift, ventricular effacement and with edema extending along the anterior corpus callosum and into the left parietal region. A 2nd mass in along the planum sphenoidale and probably causes mass effect on the optic chiasm.. Both masses demonstrate a fairly homogeneous pattern of enhancement. 2. No focal abnormalities of the posterior fossa. Otis Huff MD Chest X-Ray 12/19/17 0000 Signed Impressions: Service Date/Time: Tuesday, December 19, 2017 12:49 - CONCLUSION: Mild left base infiltrates. Tommie Solis MD Head CT 12/17/17 0000 Signed Impressions: Service Date/Time: Sunday, December 17, 2017 20:28 - CONCLUSION: Large frontal skull base and left parafalcine brain mass. Tommie Solis MD Objective Remarks GENERAL: Well-nourished, well-developed female patient in [facility]. HEENT: Normocephalic. Atraumatic.Pupils equal and round. Mucous membranes pink and moist. CARDIOVASCULAR: Regular rate and rhythm. S1, S2 noted. No murmur appreciated. RESPIRATORY: No accessory muscle use. Clear to auscultation. Breath sounds equal bilaterally. GASTROINTESTINAL: Abdomen soft, non-tender, nondistended. Normoactive bowel sounds x4. MUSCULOSKELETAL: No obvious deformities. Extremities without clubbing, cyanosis , or edema. NEUROLOGICAL: Awake and alert, oriented to self only. No obvious cranial nerve deficits. Motor grossly within normal limits. Normal speech. PSYCHIATRIC: Flat affect; insight and judgment limited. A/P Assessment and Plan 67-year-old female with dementia, presented under Reynolds Act from [facility] for poor living conditions and unable to care for self Brain Mass: Head CT images reviewed, shows >5cm left frontal mass with surrounding edema causing significant midline shift towards the right and downward transtentorial mass effect -Consulted neurosurgery -Brain MRI/MRA/MRV reviewed -Continue on IV Decadron for edema -On Keppra 500mg bid for seizure prophylaxis -Neuro checks, Seizure precautions. Neurology ff. Consulted neurosurgery Dr Richardson ff. -Consult palliative care to assist -Consult psychiatry to eval capacity, patient does not appear to understand diagnosis and unable to make medical decisions Altered mental status 2/2 above Patient eloped from the hospital 12/18/27 twice, Reynolds acted , consult psychiatry also for capacity. Patient sister Js says their mother is the POA however their mother is also in the hospital and she is the POA for the mother as well. Urinary tract infection: UA consistent with UTI with large leukocyte esterase, 23 WBCs, many bacteria, nitrite positive. -Urine culture with E Coli, pansensitive. -Will complete 7 day course of Macrobid BID (stop date 12/23) Dementia, Unable to care for self: Admitted under Reynolds act by the department of health care social worker. B12, folate, TSH all wnl. RPR negative. -Evaluated by psychiatry upon arrival and reynolds act lifted. -Consult Neurology, appreciate assistance -Case management consulted to assist with placement Hypokalemia: Persistent despite by mouth repletion -Given multiple doses of po KCl -Mag level normal -Repeat BMP shows improvement. Monitor and replace. ERIKA: Suspect due to poor oral intake. Monitor kidney indices -Improving s/p IVF -Avoid nephrotoxic agents -Repeat BMP DVT Prophylaxis: Heparin Discussed with the patient, nurse, family at bedside her sister Js is a power of state attorney Angie Larkin MD Dec 21, 2017 11:24
[2017-12-21] MEDS: hydrALAZINE HCL 10 MG TAB PO PRN (12:28)
[2017-12-21 13:08] LABS: INTERNATIONAL NORMALIZED RATIO 1.1 RATIO; PROTHROMBIN TIME - PATIENT 10.7 SEC (9.8-11.6)
--- NOTE | 2017-12-21 16:31 | HHI.NSPN ---
(Tate Cisneros) History Chief Complaint: Confusion and disorientation with expressive aphasia. (Tate Cisneros) Interval History A 67-year-old female who was admitted on 12/15/2017 after she presented to the emergency room. She was Reynolds acted. She was found by a social worker school at home unable to care for self. Patient is very confused and also has some word-finding difficulty and cannot relate any history to me. When asked if she has a headache, she says yes. When asked if she has any medical problems, she states some physical ailments, but cannot delineate any further. When asked if she has any numbness or paresthesias, she will give an ambivalent answer. She was found to have an E. coli urinary tract infection and has been on antibiotics. CT scan of the head obtained without contrast today reveals a large left cribriform plate skull base frontal mass which is on the left side. It also extends on the right side and measures about 5.5 cm in diameter with surrounding edema involving the left frontal lobe extending posteriorly with a mass effect on the ventricles and frontal horns. Neurosurgery has subsequently been consulted for further treatment recommendations. 12/18/17: Pt awake and alert but confused and disoriented. She has difficulty expressing her thoughts and gets frustrated. History is difficulty to obtain secondary to the expressive aphasia. 12/19/17: Pt with some improvement in her speech and is able to answer some questions with short appropriate response at times which is better than yesterday. Still significant expressive aphasia. 12/20/17: Pt continues to have some improvement in her speech and is able to answer some questions with short sentences that at times are appropriate. Still has expressive aphasia and some confusion. 12/21/17: Pt continues to have improvement in her speech. She has some expressive aphasia but appears to be understanding more. Some confusion and expressive aphasia persists. (Tate Cisneros) Review of Systems General: Negative for: fever, chills, insomnia Respiratory: Negative for: shortness of breath, cough, sputum Cardiovascular: Negative for: chest pain Gastrointestinal: Negative for: nausea, vomitting, diarrhea, constipation ( Tate Cisneros) Exam Results Vital Signs Date Time Temp Pulse Resp B/P (MAP) Pulse Ox O2 Delivery O2 Flow Rate FiO2 12/21/17 15:03 166/77 (106) 12/21/17 12:00 97.8 61 19 96 Intake and Output 12/21/17 12/21/17 12/22/17 08:00 16:00 00:00 Intake Total 240 ml Balance 240 ml (Tate Cisneros) Physical Examination General: Pt awake and alert sitting up in bed in no acute distress. Eyes: Pupils equal and sclera anicteric. Resp: CTA bilaterally Heart: NSR no murmurs Abd: Soft positive bs Skin: No cyanosis or erythema Muscle: Moves all 4 extremities with good strength although some difficulty following complex commands. Neuro: Pt awake and alert. Pupils 3mm bilaterally reactive bilaterally. She follows commands but has difficulty follow some more complex commands. She has moderate expressive aphasia that has some improvement from daily although still expressive aphasia and cognitive deficits. She does answer yes/no questions and is appropriate at times. (Tate Cisneros) Lab, Micro, Other Results Last Impressions Head/Brain Mag Res Venography 12/20/17 0000 Signed Impressions: Service Date/Time: November 15:36 - CONCLUSION: Short occlusion of the ventral most aspect of the superior sagittal sinus Tommie Solis MD Head Magnetic Resonance Angiography 12/20/17 0000 Signed Impressions: Service Date/Time: November 15:36 - CONCLUSION: 1. The anterior cerebral arteries are being displaced towards the patient's right secondary to the left frontal lobe mass. Otherwise, unremarkable exam. Otis Rae Jr., MD Brain MRI 12/20/17 0000 Signed Impressions: Service Date/Time: November 15:36 - CONCLUSION: 1. There are 2 supratentorial masses, one is mid convexity frontal on the left side causing significant midline shift, ventricular effacement and with edema extending along the anterior corpus callosum and into the left parietal region. A 2nd mass in along the planum sphenoidale and probably causes mass effect on the optic chiasm.. Both masses demonstrate a fairly homogeneous pattern of enhancement. 2. No focal abnormalities of the posterior fossa. Otis Huff MD Chest X-Ray 12/19/17 0000 Signed Impressions: Service Date/Time: Tuesday, December 19, 2017 12:49 - CONCLUSION: Mild left base infiltrates. Tommie Solis MD Head CT 12/17/17 0000 Signed Impressions: Service Date/Time: Sunday, December 17, 2017 20:28 - CONCLUSION: Large frontal skull base and left parafalcine brain mass. Tommie Solis MD Laboratory Tests Test 12/21/17 12:15 Prothrombin Time 10.7 SEC Prothromb Time International Ratio 1.1 RATIO Activated Partial Thromboplast Time 20.7 SEC (Tate Cisneros) Medical Decision Making Impression and Plan A: 1. Large left frontal skull base cribriform plate mass which extends into the right side to cross the midline along with surrounding vasogenic edema extending into the posterior frontal lobe with mass effect on the ventricles. This is concerning for likely meningioma, but other possibilities also need to be entertained. 2. Apparent progressive cognitive decline with dementia which could be related to this bifrontal large mass. 3. Unregulated hypertension. 4. Urinary tract infection. PLAN Continue with Decadron which appears to have helped some with her speech. Continue with Neuro checks. Dr. Dunbar and I have had a lengthy discussion with the pt and her sister. We discussed the MRI findings and showed her the MRI at the bedside with the pt which reveals 3 brain masses. We discussed the plan for surgery would be to try to remove the largest mass which is causing the most pressure on the brain. We may not be able to remove the whole tumor and she may need additional radiation treatment in the future depending on the pathology. We discussed the risks involved with surgery but the risk of leaving the tumor alone is higher than the risk of surgery. No guarantees were given to the pt or her sister. They are going to discuss our conversation further and if she decides to proceed would be for early next week. (Tate Cisneros) Attending Statement The exam, history, and the medical decision-making described in the above note were completed with the assistance of the mid-level provider. I reviewed and agree with the findings presented. I attest that I had a [id number] encounter with the patient on the same day, and personally performed and documented my assessment and findings in the medical record. (Michael Dunbar MD) Tate Cisneros Dec 21, 2017 16:31 Michael Dunbar MD Dec 21, 2017 23:13
--- NOTE | 2017-12-21 23:15 | EKG ---
Date Performed: 12/21/2017 Time Performed: 16:07:53 PTAGE: 67 years EKG: Sinus rhythm LOW QRS VOLTAGE IN PRECORDIAL LEADS NONSPECIFIC ST & T-WAVE ABNORMALITY BORDERLINE ECG PREVIOUS TRACING : 12/13/2000 11.27 Compared to previous tracing, nonspecific ST/T abnormalitie s are now more pronounced. DOCTOR: Giovani Tena Interpretating Date/Time 12/21/2017 23:13:48
[2017-12-22 01:00] VITALS: BP 149/72; PULSE 68; RESP 17; TEMP 97.9; O2SAT 95
[2017-12-22] MEDS: SODIUM CHLOR 0.9% 1000 ML INJ 1,000 ML IV SCH ×2 (04:40→17:54)
[2017-12-22] MEDS: HEPARIN SODIUM - SQ 10,000 UNITS/ML VIAL SQ SCH ×3 (05:39→21:03)
[2017-12-22] MEDS: DEXAMETHASONE SOD PHOS 4 MG/ML VIAL IV PUSH SCH ×3 (05:40→21:04)
[2017-12-22 05:55] VITALS: BP 147/71; PULSE 56; RESP 17; TEMP 98.4; O2SAT 95
[2017-12-22 08:23] VITALS: BP 143/63; PULSE 58; RESP 18; TEMP 98.1; O2SAT 95
[2017-12-22] MEDS: SODIUM CHLORIDE 0.9% FLUSH 10 ML FLUSH IV FLUSH SCH ×2 (09:22→21:03)
[2017-12-22] MEDS: NITROFURANTOIN MONOHYD MACROCR 100 MG CAP PO SCH ×2 (09:22→17:54)
[2017-12-22] MEDS: NIFEdipine 30 MG SUSTAINED RELEASE TAB PO SCH (09:22)
[2017-12-22] MEDS: PANTOPRAZOLE SOD 40 MG DELAYED RELEASE TAB PO SCH (09:22)
[2017-12-22] MEDS: levETIRAcetam 500 MG TAB PO SCH ×2 (09:22→21:03)
[2017-12-22 12:01] VITALS: BP 172/84; PULSE 88; RESP 18; TEMP 97.4; O2SAT 95
--- NOTE | 2017-12-22 13:18 | HHI.PR ---
Subjective Remarks The patient is at the margin of the bed. No new motor or sensory deficit. Mentation improving some. Also sister bedside who is the power of assistant district attorney Js. Patient denies any headaches. No change in vision. No events overnight. Objective Vitals Vital Signs Date Time Temp Pulse Resp B/P (MAP) Pulse Ox O2 Delivery O2 Flow Rate FiO2 12/22/17 12:01 97.4 88 18 172/84 (113) 95 12/22/17 08:23 98.1 58 18 143/63 (89) 95 12/22/17 05:55 98.4 56 17 147/71 (96) 95 12/22/17 01:00 97.9 68 17 149/72 (97) 95 12/21/17 21:11 97.2 78 17 165/75 (105) 96 12/21/17 15:03 166/77 (106) I/O 12/21/17 12/21/17 12/21/17 12/22/17 12/22/17 12/22/17 07:00 15:00 23:00 07:00 15:00 23:00 Intake Total 240 ml 240 ml Balance 240 ml 240 ml Intake Oral 240 ml 240 ml # Voids 2 4 Result Diagram: 12/19/17 0845 12/19/17 0845 Imaging Last Impressions Head/Brain Mag Res Venography 12/20/17 0000 Signed Impressions: Service Date/Time: November 15:36 - CONCLUSION: Short occlusion of the ventral most aspect of the superior sagittal sinus Tommie Solis MD Head Magnetic Resonance Angiography 12/20/17 0000 Signed Impressions: Service Date/Time: November 15:36 - CONCLUSION: 1. The anterior cerebral arteries are being displaced towards the patient's right secondary to the left frontal lobe mass. Otherwise, unremarkable exam. Otis Rae Jr., MD Brain MRI 12/20/17 0000 Signed Impressions: Service Date/Time: November 15:36 - CONCLUSION: 1. There are 2 supratentorial masses, one is mid convexity frontal on the left side causing significant midline shift, ventricular effacement and with edema extending along the anterior corpus callosum and into the left parietal region. A 2nd mass in along the planum sphenoidale and probably causes mass effect on the optic chiasm.. Both masses demonstrate a fairly homogeneous pattern of enhancement. 2. No focal abnormalities of the posterior fossa. Otis Huff MD Chest X-Ray 12/19/17 0000 Signed Impressions: Service Date/Time: Tuesday, December 19, 2017 12:49 - CONCLUSION: Mild left base infiltrates. Tommie Solis MD Head CT 12/17/17 0000 Signed Impressions: Service Date/Time: Sunday, December 17, 2017 20:28 - CONCLUSION: Large frontal skull base and left parafalcine brain mass. Tommie Solis MD Objective Remarks GENERAL: Well-nourished, well-developed female patient in [facility]. HEENT: Normocephalic. Atraumatic.Pupils equal and round. Mucous membranes pink and moist. CARDIOVASCULAR: Regular rate and rhythm. S1, S2 noted. No murmur appreciated. RESPIRATORY: No accessory muscle use. Clear to auscultation. Breath sounds equal bilaterally. GASTROINTESTINAL: Abdomen soft, non-tender, nondistended. Normoactive bowel sounds x4. MUSCULOSKELETAL: No obvious deformities. Extremities without clubbing, cyanosis , or edema. NEUROLOGICAL: Awake and alert, oriented to self only. No obvious cranial nerve deficits. Motor grossly within normal limits. Normal speech. PSYCHIATRIC: Flat affect; insight and judgment limited. A/P Assessment and Plan 67-year-old female with dementia, presented under Reynolds Act from [facility] for poor living conditions and unable to care for self Brain Mass: Head CT images reviewed, shows >5cm left frontal mass with surrounding edema causing significant midline shift towards the right and downward transtentorial mass effect -Consulted neurosurgery -Brain MRI/MRA/MRV reviewed -Continue on IV Decadron for edema -On Keppra 500mg bid for seizure prophylaxis -Neuro checks, Seizure precautions. Neurology ff. Consulted neurosurgery Dr Richardson ff. -Consult palliative care to assist -Consult psychiatry to eval capacity, patient does not appear to understand diagnosis and unable to make medical decisions Altered mental status 2/2 above Patient eloped from the hospital 12/18/27 twice, Gail acted , consult psychiatry also for capacity. Patient sister Js says their mother is the POA however their mother is also in the hospital and she is the POA for the mother as well. Urinary tract infection: UA consistent with UTI with large leukocyte esterase, 23 WBCs, many bacteria, nitrite positive. -Urine culture with E Coli, pansensitive. -Will complete 7 day course of Macrobid BID (stop date 12/23) Dementia, Unable to care for self: Admitted under Reynolds act by the department of social worker school. B12, folate, TSH all wnl. RPR negative. -Evaluated by psychiatry upon arrival and reynolds act lifted. -Consult Neurology, appreciate assistance -Case management consulted to assist with placement Hypokalemia: Persistent despite by mouth repletion -Given multiple doses of po KCl -Mag level normal -Repeat BMP shows improvement. Monitor and replace. ERIKA: Suspect due to poor oral intake. Monitor kidney indices -Improving s/p IVF -Avoid nephrotoxic agents -Repeat BMP DVT Prophylaxis: Heparin Discussed with the patient, nurse, family at bedside her sister Js is a power of assistant district attorney Patient/power of assistant district attorney Js wants second opinion for surgery Angie Larkin MD Dec 22, 2017 13:18
--- NOTE | 2017-12-22 15:09 | HHI.NSPN ---
(Tate Cisneros) History Chief Complaint: Confusion and disorientation with expressive aphasia. (Tate Cisneros) Interval History A 67-year-old female who was admitted on 12/15/2017 after she presented to the emergency room. She was Reynolds acted. She was found by a social science research assistant at home unable to care for self. Patient is very confused and also has some word-finding difficulty and cannot relate any history to me. When asked if she has a headache, she says yes. When asked if she has any medical problems, she states some physical ailments, but cannot delineate any further. When asked if she has any numbness or paresthesias, she will give an ambivalent answer. She was found to have an E. coli urinary tract infection and has been on antibiotics. CT scan of the head obtained without contrast today reveals a large left cribriform plate skull base frontal mass which is on the left side. It also extends on the right side and measures about 5.5 cm in diameter with surrounding edema involving the left frontal lobe extending posteriorly with a mass effect on the ventricles and frontal horns. Neurosurgery has subsequently been consulted for further treatment recommendations. 12/18/17: Pt awake and alert but confused and disoriented. She has difficulty expressing her thoughts and gets frustrated. History is difficulty to obtain secondary to the expressive aphasia. 12/19/17: Pt with some improvement in her speech and is able to answer some questions with short appropriate response at times which is better than yesterday. Still significant expressive aphasia. 12/20/17: Pt continues to have some improvement in her speech and is able to answer some questions with short sentences that at times are appropriate. Still has expressive aphasia and some confusion. 12/21/17: Pt continues to have improvement in her speech. She has some expressive aphasia but appears to be understanding more. Some confusion and expressive aphasia persists. 12/22/17: Pt awake and alert. Sitting on edge of bed eating lunch with sister at her bedside. Pt states she would like to be discharged home so she can manage some issues at home. She feels she is able to make her decisions. She has been deemed unable to make decisions when she was admitted to the hospital and with the steroids she is having less confusion and less expressive aphasia. She is complaining of any headaches, nausea or vomiting. (Tate Cisneros) Review of Systems General: Negative for: fever, chills, insomnia Respiratory: Negative for: shortness of breath, cough, sputum Cardiovascular: Negative for: chest pain Gastrointestinal: Negative for: nausea, vomitting, diarrhea, constipation ( Tate Cisneros) Exam Results Vital Signs Date Time Temp Pulse Resp B/P (MAP) Pulse Ox O2 Delivery O2 Flow Rate FiO2 12/22/17 12:01 97.4 88 18 172/84 (113) 95 Intake and Output 12/22/17 12/22/17 12/23/17 08:00 16:00 00:00 Intake Total 240 ml Balance 240 ml (Tate Cisneros) Physical Examination General: Pt awake and alert sitting up in bed in no acute distress. Eyes: Pupils equal and sclera anicteric. Resp: CTA bilaterally Heart: NSR no murmurs Abd: Soft positive bs Skin: No cyanosis or erythema Muscle: Moves all 4 extremities with good strength although some difficulty following complex commands. Neuro: Pt awake and alert. Pupils 3mm bilaterally reactive bilaterally. She follows commands but has difficulty follow some more complex commands. She has moderate expressive aphasia and has improved since admission she still has expressive aphasia and cognitive deficits. She is able to speak in some short sentences, but at times has difficulty with word finding and expressing thoughts. (Tate Cisneros) Lab, Micro, Other Results Last Impressions Head/Brain Mag Res Venography 12/20/17 0000 Signed Impressions: Service Date/Time: November 15:36 - CONCLUSION: Short occlusion of the ventral most aspect of the superior sagittal sinus Tommie Solis MD Head Magnetic Resonance Angiography 12/20/17 0000 Signed Impressions: Service Date/Time: November 15:36 - CONCLUSION: 1. The anterior cerebral arteries are being displaced towards the patient's right secondary to the left frontal lobe mass. Otherwise, unremarkable exam. Otis Rae Jr., MD Brain MRI 12/20/17 0000 Signed Impressions: Service Date/Time: November 15:36 - CONCLUSION: 1. There are 2 supratentorial masses, one is mid convexity frontal on the left side causing significant midline shift, ventricular effacement and with edema extending along the anterior corpus callosum and into the left parietal region. A 2nd mass in along the planum sphenoidale and probably causes mass effect on the optic chiasm.. Both masses demonstrate a fairly homogeneous pattern of enhancement. 2. No focal abnormalities of the posterior fossa. Otis Huff MD Chest X-Ray 12/19/17 0000 Signed Impressions: Service Date/Time: Tuesday, December 19, 2017 12:49 - CONCLUSION: Mild left base infiltrates. Tommie Solis MD Head CT 12/17/17 0000 Signed Impressions: Service Date/Time: Sunday, December 17, 2017 20:28 - CONCLUSION: Large frontal skull base and left parafalcine brain mass. Tommie Solis MD (Tate Cisneros) Medical Decision Making Impression and Plan A: 1. Large left frontal skull base cribriform plate mass which extends into the right side to cross the midline along with surrounding vasogenic edema extending into the posterior frontal lobe with mass effect on the ventricles. This is concerning for likely meningioma, but other possibilities also need to be entertained. 2. Apparent progressive cognitive decline with dementia which could be related to this bifrontal large mass. 3. Unregulated hypertension. 4. Urinary tract infection. PLAN Continue with Decadron which appears to have helped some with her speech. Continue with Neuro checks. Dr. Dunbar and I have had a lengthy discussion with the pt and her sister again. The pt wants to be discharged to go home to take care of her animals and take care of her finances. She states once this is done she may or may not decide to proceed with surgery. She states she understands the steroids are temporarily helping her brain swelling and we cannot continue with steroids for an indefinite period of time. We would not recommend steroids for more than a few weeks. She expressed understanding that the steroids are helping the swelling but if the tumor continues to grow this will cause more swelling despite the steroids, and other complications including but not limited to seizures, worsening confusion, possible stroke with significant weakness/ paralysis and possibly . The pt is willing to take these risks and her sister also feels that she is able to make that decision. We discussed with her we will need to have psychiatry re-evaluate her to determine if she is competent to make that decision. If she is competent than she can be discharged home from our standpoint understanding that she has a tumor that if it continues to grow will cause more swelling and can cause worsening confusion , weakness, seizures, lethargy and eventually coma. She also would understand that the steroids can not be prescribed for an indefinite period of time and would be given for a few weeks for her to take care of her arrangements and make a decision for treatment which would involve surgery or comfort care. Psychiatry will be asked to re-evaluate the pts competence. (Tate Cisneros) Attending Statement The exam, history, and the medical decision-making described in the above note were completed with the assistance of the mid-level provider. I reviewed and agree with the findings presented. I attest that I had a [id number] encounter with the patient on the same day, and personally performed and documented my assessment and findings in the medical record. (Michael Dunbar MD) Tate Cisneros Dec 22, 2017 15:09 Michael Dunbar MD Dec 22, 2017 20:03
[2017-12-22 16:00] VITALS: BP 158/86; PULSE 91; RESP 18; TEMP 97.5; O2SAT 94
[2017-12-22 20:00] VITALS: BP 171/77; PULSE 76; RESP 18; TEMP 97.7; O2SAT 93
[2017-12-23 04:00] VITALS: BP 154/74; PULSE 55; RESP 18; TEMP 97.4; O2SAT 93
[2017-12-23 04:34] VITALS: BP 146/70; PULSE 59; RESP 16; TEMP 97.6; O2SAT 93
[2017-12-23] MEDS: DEXAMETHASONE SOD PHOS 4 MG/ML VIAL IV PUSH SCH ×3 (06:17→21:30)
[2017-12-23] MEDS: HEPARIN SODIUM - SQ 10,000 UNITS/ML VIAL SQ SCH ×3 (06:17→21:29)
[2017-12-23] MEDS: SODIUM CHLOR 0.9% 1000 ML INJ 1,000 ML IV SCH ×2 (07:20→20:40)
[2017-12-23 08:00] VITALS: BP 150/75; PULSE 56; RESP 18; TEMP 97.4; O2SAT 93
[2017-12-23] MEDS: NITROFURANTOIN MONOHYD MACROCR 100 MG CAP PO SCH ×2 (08:03→17:05)
[2017-12-23] MEDS: PANTOPRAZOLE SOD 40 MG DELAYED RELEASE TAB PO SCH (08:03)
[2017-12-23] MEDS: NIFEdipine 30 MG SUSTAINED RELEASE TAB PO SCH (08:03)
[2017-12-23] MEDS: levETIRAcetam 500 MG TAB PO SCH ×2 (08:03→21:29)
[2017-12-23] MEDS: SODIUM CHLORIDE 0.9% FLUSH 10 ML FLUSH IV FLUSH SCH ×2 (08:04→21:30)
[2017-12-23 12:00] VITALS: BP 138/67; PULSE 78; RESP 18; TEMP 97.3; O2SAT 94
--- NOTE | 2017-12-23 12:13 | HHI.PYPN ---
Subjective Remarks Patient seen in follow-up for decision-making capacity. Chart reviewed. Case discussed with Dr. Brice. On my examination today, the patient is unable to describe the nature of her medical illness in any meaningful detail. She tells me that she has some issue to do with "masses" but cannot say where these are located. She is unable to explain what her general medical doctors wish to do for her with regards to her medical issues. She seems fairly confused and has a rambling quality to her speech which is voluminous but quite vague. She is hoping that she will be released from the hospital soon so that she can take care of her pet cats. She denies any SI or HI. Denies any issues with depression or anxiety. Denies any AVH. No delusions elicited. No acute physical complaints. Review of Systems ROS Limitations: Poor Historian Except as stated in HPI: all other systems reviewed are Neg Mental Status Examination Appearance: Appropriate Consciousness: Alert Orientation: Person, Place ([facility]) Motor Activity: Other (no motor abnormalities noted) Speech: Other (voluminous but vague) Language: Perseveration, Other (vague) Fund of Knowledge: Poor Attention and Concentration: Easily Distracted Memory: Impaired Mood: Appropriate Affect: Appropriate Thought Process & Associations: Other (circumstantial, at times tangential) Thought Content: Appropriate Hallucination Type: None Delusion Type: None Suicidal Ideation: No Suicidal Plan: No Suicidal Intention: No Homicidal Ideation: No Homicidal Plan: No Homicidal Intention: No Insight: Poor Judgment: Poor Mental Status Exam Remarks Registration is 3 out of 3 and recall is one out of 3 at 3 minutes. She is oriented to person and [facility]. She is able to name 2 items and repeat a phrase. Able to spell world forward but not backward. Results Labs Date/Time Source Procedure Growth Status 12/15/17 20:30 Urine Random Urine Urine Culture - Final Escherichia Coli Complete Labs reviewed. Vitals/IOs Vital Signs Date Time Temp Pulse Resp B/P (MAP) Pulse Ox O2 Delivery O2 Flow Rate FiO2 12/23/17 08:00 97.4 56 18 150/75 (100) 93 Assessment & Plan Problem List: (1) Dementia ICD Codes: F03.90 - Unspecified dementia without behavioral disturbance Status: Acute Assessment & Plan I concur with Dr. Coreas. Patient's understanding of her illness remains quite poor as does her understanding of the treatment plan, and I suspect that this lack of understanding arises from cognitive deficit. She seems quite confused on exam. Patient presently lacks decision-making capacity regarding medical decisions and disposition. I recommend realizing a healthcare surrogate to assist in making these decisions. Thank you very much for this consultation. Please consult Dr. Coreas if further follow-up as needed. Justification for Cont. Inpt. Per primary team. Problem Qualifiers (1) Dementia: Qualified Codes: F03.90 - Unspecified dementia without behavioral disturbance Smith Fonseca MD Dec 23, 2017 12:13
--- NOTE | 2017-12-23 14:00 | HHI.PR ---
Subjective Remarks f/u for brain mass and AMS patient seems to have difficulty finding words at time. she stated that if nothing is going to be done then she wants to go home. when i asked about her wanting to take care of her pets and come back she looked confused and did not answer. patient evaulated by psych again and stated patient DOES NOT HAVE Capacity to make medical decision. I read case management note from 12/20 and it seems like DCF is involved. spoke to patient sister over the phone and she stated her name is wrong in the EMR and that her name is Yvonne Keller not Yvonne Castro. Per case management Yvonne Keller is her daughter which is documented incorrectly. I called case management and left message. Sister initially stated to me that she is not POA and cannot make the medical decision. then she changed her mind and stated she can. She was very flustered over the phone and seemed to be overwhelmed. She stated she cannot talk over the phone and will be at the hospital in a couple hours. I then spoke to charge nurse because need to know who is POA since patient does not have capacity to make medical decision. Objective Vitals Vital Signs Date Time Temp Pulse Resp B/P (MAP) Pulse Ox O2 Delivery O2 Flow Rate FiO2 12/23/17 12:00 97.3 78 18 138/67 (90) 94 12/23/17 08:00 97.4 56 18 150/75 (100) 93 12/23/17 04:34 97.6 59 16 146/70 (95) 93 12/23/17 04:00 97.4 55 18 154/74 (100) 93 12/22/17 20:00 97.7 76 18 171/77 (108) 93 12/22/17 16:00 97.5 91 18 158/86 (110) 94 I/O 12/22/17 12/22/17 12/22/17 12/23/17 12/23/17 12/23/17 07:00 15:00 23:00 07:00 15:00 23:00 Intake Total 240 ml 60 ml Balance 240 ml 60 ml Intake Oral 240 ml 60 ml # Voids 4 1 3 Result Diagram: 12/19/17 0845 12/19/17 0845 Objective Remarks GENERAL: in NAD CARDIOVASCULAR: Regular rate and rhythm without murmurs, gallops, or rubs. RESPIRATORY: Breath sounds equal bilaterally. No accessory muscle use. GASTROINTESTINAL: Abdomen soft, non-tender, nondistended. NEURO: AAO X 0. able to speak but sometimes does not make sure. moving all limbs grossly. Medications and IVs Current Medications Potassium Chloride (KCl) 40 meq ONCE ONCE PO Last administered on 12/15/17at 21 :44; Start 12/15/17 at 21:30; Stop 12/15/17 at 21:32; Status DC Trimethoprim/ Sulfamethoxazole (Bactrim Ds 800-160 Mg) 1 tab ONCE ONCE PO Last administered on 12/15/17at 21:44; Start 12/15/17 at 21:30; Stop 12/15/17 at 21:32; Status DC Sodium Chloride 1,000 ml @ 100 mls/hr Q10H IV Last administered on 12/16/17at 23:19; Start 12/16/17 at 22:42; Stop 12/17/17 at 11:41; Status DC Sodium Chloride (NS Flush) 2 ml UNSCH PRN IV FLUSH FLUSH AFTER USING IV ACCESS ; Start 12/16/17 at 22:45 Sodium Chloride (NS Flush) 2 ml BID IV FLUSH Last administered on 12/23/17at 08: 04; Start 12/17/17 at 09:00 Acetaminophen (Tylenol) 650 mg Q4H PRN PO TEMP > 100.4; Start 12/16/17 at 22:45 Ondansetron HCl (Zofran Inj) 4 mg Q6H PRN IVP NAUSEA OR VOMITING; Start at 22:45 Naloxone HCl (Narcan Inj) 0.4 mg UNSCH PRN IV PUSH SEE LABEL COMMENTS; Start at 22:45 Ceftriaxone Sodium 1000 mg/ Sodium Chloride 100 ml @ 200 mls/hr Q24H IV ; Start 12/17/17 at 00:00; Stop 12/17/17 at 12:32; Status DC Potassium Chloride (KCl) 40 meq ONCE ONCE PO Last administered on 12/16/17at 23 :19; Start 12/16/17 at 23:15; Stop 12/16/17 at 23:16; Status DC Heparin Sodium (Porcine) (Heparin Inj) 5,000 units Q8HR SQ Last administered on 12/23/17at 06:17; Start 12/17/17 at 06:00 Potassium Chloride (KCl) 40 meq Q12HR PO Last administered on 12/17/17 22:06; Start 12/17/17 at 09:00; Stop 12/17/17 at 21:01; Status DC Hydralazine HCl (Apresoline) 10 mg Q6HR PRN PO SBP>180, DBP>95 Last administered on 12/21/17 12:28; Start 12/17/17 at 08:15 Enalaprilat (Vasotec Inj) 1.25 mg Q6H PRN IV PUSH SBP>180, DBP>95 Last administered on 12/21/17 12:28; Start 12/17/17 at 08:15 Nitrofurantoin Macrocrystals (Macrobid) 100 mg BIDPC PO Last administered on 08:03; Start 12/17/17 at 18:00; Stop 12/23/17 at 21:00 Nitrofurantoin Macrocrystals (Macrobid) 100 mg ONCE ONCE PO Last administered on 12/17/17at 13:14; Start 12/17/17 at 12:45; Stop 12/17/17 at 12:50; Status DC Dexamethasone Sodium Phosphate (Decadron Inj) 4 mg Q8HR IV PUSH Last administered on 12/23/17 06:17; Start 12/17/17 at 17:00 Dexamethasone (Decadron) 4 mg ONCE ONCE PO Last administered on 12/17/17at 17: 59; Start 12/17/17 at 17:15; Stop 12/17/17 at 17:16; Status DC Nifedipine (Procardia Xl) 30 mg ONCE ONCE PO Last administered on 12/17/17at 17 :59; Start 12/17/17 at 17:15; Stop 12/17/17 at 17:16; Status DC Nifedipine (Procardia Xl) 30 mg DAILY PO Last administered on 12/23/17 08:03; Start 12/18/17 at 09:00 Sodium Chloride 1,000 ml @ 75 mls/hr [id number] IV Last administered on 12:31; Start 12/17/17 at 18:00 Pantoprazole Sodium (Protonix) 40 mg DAILY PO Last administered on 12/23/17 08 :03; Start 12/18/17 at 09:00 Iohexol (Omnipaque 350 Inj) 100 ml STK-MED ONCE IVCONTRAST Last administered on 12/17/17at 20:31; Start 12/17/17 at 20:31; Stop 12/17/17 at 20:32; Status DC Levetriacetam (Keppra) 500 mg Q12HR PO Last administered on 12/23/17at 08:03; Start 12/18/17 at 09:00 Lorazepam (Ativan) 1 mg RECREATION AIDE ONCE PO Last administered on 12/19/17at 17:10; Start 12/19/17 at 16:30; Stop 12/19/17 at 16:31; Status DC Lorazepam (Ativan) 1 mg RECREATION AIDE ONCE PO Last administered on 12/20/17at 14:36; Start 12/20/17 at 12:15; Stop 12/20/17 at 12:16; Status DC Gadodiamide (Omniscan Pf Inj) 20 ml STK-MED ONCE IVCONTRAST Last administered on 12/20/17at 16:00; Start 12/20/17 at 16:00; Stop 12/20/17 at 16:01; Status DC A/P Assessment and Plan 67-year-old female with dementia, presented under Reynolds Act from DCF for poor living conditions and unable to care for self Brain Mass: Head CT images reviewed, shows >5cm left frontal mass with surrounding edema causing significant midline shift towards the right and downward transtentorial mass effect -Consulted neurosurgery -Brain MRI/MRA/MRV reviewed -Continue on IV Decadron for edema -On Keppra 500mg bid for seizure prophylaxis -Neuro checks, Seizure precautions. Neurology ff. Consulted neurosurgery Dr Richardson ff. -Neurosurgeon recommend craniotomy with mass removal. patient does not have capacity to make medical decision. DCF involved. d/w charge nurse and left message for case management to see who is POA. Altered mental status 2/2 above Patient eloped from the hospital 12/18/27 twice, Gail acted , consult psychiatry also for capacity. Patient sister Js says their mother is the POA however their mother is also in the hospital and she is the POA for the mother as well. - d/w charge nurse and left message for case management to see who is POA. Urinary tract infection: UA consistent with UTI with large leukocyte esterase, 23 WBCs, many bacteria, nitrite positive. -Urine culture with E Coli, pansensitive. -Will complete 7 day course of Macrobid BID (stop date 12/23) Dementia, Unable to care for self: Admitted under Reynolds act by the department of hospice social worker. B12, folate, TSH all wnl. RPR negative. -Evaluated by psychiatry upon arrival and reynolds act lifted. -Consult Neurology, appreciate assistance -Case management consulted to assist with placement Hypokalemia: Persistent despite by mouth repletion -Given multiple doses of po KCl -Mag level normal -Repeat BMP shows improvement. Monitor and replace. ERIKA: Suspect due to poor oral intake. Monitor kidney indices -Improving s/p IVF -Avoid nephrotoxic agents -Repeat BMP DVT Prophylaxis: Heparin Discharge Planning Unsure who is POA. spoke to charge nurse and left message from case management for clarification patient DOES NOT have the CAPACITY to make medical decision. Deirdre Brice MD Dec 23, 2017 14:00
--- NOTE | 2017-12-23 14:23 | HHI.NSPN ---
(Tate Cisneros) History Chief Complaint: Confusion and disorientation with expressive aphasia. (Tate Cisneros) Interval History A 67-year-old female who was admitted on 12/15/2017 after she presented to the emergency room. She was Reynolds acted. She was found by a social and human services assistant at home unable to care for self. Patient is very confused and also has some word-finding difficulty and cannot relate any history to me. When asked if she has a headache, she says yes. When asked if she has any medical problems, she states some physical ailments, but cannot delineate any further. When asked if she has any numbness or paresthesias, she will give an ambivalent answer. She was found to have an E. coli urinary tract infection and has been on antibiotics. CT scan of the head obtained without contrast today reveals a large left cribriform plate skull base frontal mass which is on the left side. It also extends on the right side and measures about 5.5 cm in diameter with surrounding edema involving the left frontal lobe extending posteriorly with a mass effect on the ventricles and frontal horns. Neurosurgery has subsequently been consulted for further treatment recommendations. 12/18/17: Pt awake and alert but confused and disoriented. She has difficulty expressing her thoughts and gets frustrated. History is difficulty to obtain secondary to the expressive aphasia. 12/19/17: Pt with some improvement in her speech and is able to answer some questions with short appropriate response at times which is better than yesterday. Still significant expressive aphasia. 12/20/17: Pt continues to have some improvement in her speech and is able to answer some questions with short sentences that at times are appropriate. Still has expressive aphasia and some confusion. 12/21/17: Pt continues to have improvement in her speech. She has some expressive aphasia but appears to be understanding more. Some confusion and expressive aphasia persists. 12/22/17: Pt awake and alert. Sitting on edge of bed eating lunch with sister at her bedside. Pt states she would like to be discharged home so she can manage some issues at home. She feels she is able to make her decisions. She has been deemed unable to make decisions when she was admitted to the hospital and with the steroids she is having less confusion and less expressive aphasia. She is complaining of any headaches, nausea or vomiting. 12/23/17: Pt awake and alert. Resting comfortably in bed. Denies headaches. No n/v. Pt again expresses her wishes to leave the hospital to attend to her cats and her finances at home. Psychiatry has seen the pt again and determined she is unable to make those decisions. (Tate Cisneros) Review of Systems General: Negative for: fever, chills, insomnia Respiratory: Negative for: shortness of breath, cough, sputum Cardiovascular: Negative for: chest pain Gastrointestinal: Negative for: nausea, vomitting, diarrhea, constipation ( Tate Cisneros) Exam Results Vital Signs Date Time Temp Pulse Resp B/P (MAP) Pulse Ox O2 Delivery O2 Flow Rate FiO2 12/23/17 12:00 97.3 78 18 138/67 (90) 94 (Tate Cisneros) Physical Examination General: Pt awake and alert sitting up in bed in no acute distress. Eyes: Pupils equal and sclera anicteric. Resp: CTA bilaterally Heart: NSR no murmurs Abd: Soft positive bs Skin: No cyanosis or erythema Muscle: Moves all 4 extremities with good strength although some difficulty following complex commands. Neuro: Pt awake and alert. Pupils 3mm bilaterally reactive bilaterally. She follows commands but has difficulty follow some more complex commands. She has moderate expressive aphasia and has improved since admission she still has expressive aphasia and cognitive deficits. She is able to speak in some short sentences, but at times has difficulty with word finding and expressing thoughts. (Tate Cisneros) Lab, Micro, Other Results Last Impressions Head/Brain Mag Res Venography 12/20/17 0000 Signed Impressions: Service Date/Time: November 15:36 - CONCLUSION: Short occlusion of the ventral most aspect of the superior sagittal sinus Tommie Solis MD Head Magnetic Resonance Angiography 12/20/17 0000 Signed Impressions: Service Date/Time: November 15:36 - CONCLUSION: 1. The anterior cerebral arteries are being displaced towards the patient's right secondary to the left frontal lobe mass. Otherwise, unremarkable exam. Otis Rae Jr., MD Brain MRI 12/20/17 0000 Signed Impressions: Service Date/Time: November 15:36 - CONCLUSION: 1. There are 2 supratentorial masses, one is mid convexity frontal on the left side causing significant midline shift, ventricular effacement and with edema extending along the anterior corpus callosum and into the left parietal region. A 2nd mass in along the planum sphenoidale and probably causes mass effect on the optic chiasm.. Both masses demonstrate a fairly homogeneous pattern of enhancement. 2. No focal abnormalities of the posterior fossa. Otis Huff MD Chest X-Ray 12/19/17 0000 Signed Impressions: Service Date/Time: Tuesday, December 19, 2017 12:49 - CONCLUSION: Mild left base infiltrates. Tommie Solis MD Head CT 12/17/17 0000 Signed Impressions: Service Date/Time: Sunday, December 17, 2017 20:28 - CONCLUSION: Large frontal skull base and left parafalcine brain mass. Tommie Solis MD (Tate Cisneros) Medical Decision Making Impression and Plan A: 1. Large left frontal skull base cribriform plate mass which extends into the right side to cross the midline along with surrounding vasogenic edema extending into the posterior frontal lobe with mass effect on the ventricles. This is concerning for likely meningioma, but other possibilities also need to be entertained. 2. Apparent progressive cognitive decline with dementia which could be related to this bifrontal large mass. 3. Unregulated hypertension. 4. Urinary tract infection. PLAN Continue with Decadron which appears to have helped some with her speech. Continue with Neuro checks. Pt and her sister also want another surgical opinion while she is here and we will ask the implementation project manager Neurosurgeon tomorrow if they can see her. (Tate Cisneros) Attending Statement The exam, history, and the medical decision-making described in the above note were completed with the assistance of the mid-level provider. I reviewed and agree with the findings presented. I attest that I had a [id number] encounter with the patient on the same day, and personally performed and documented my assessment and findings in the medical record. (Michael Dunbar MD) Tate Cisneros Dec 23, 2017 14:23 Michael Dunbar MD Dec 23, 2017 16:47
[2017-12-23 16:00] VITALS: BP 176/85; PULSE 92; RESP 18; TEMP 98.1; O2SAT 97
[2017-12-23 20:00] VITALS: BP 177/80; PULSE 72; RESP 18; TEMP 97.8; O2SAT 94
[2017-12-24] VITALS: BP 156/80; PULSE 67; RESP 18; TEMP 97.2; O2SAT 96
[2017-12-24 04:00] VITALS: BP 149/78; PULSE 56; RESP 18; TEMP 97.5; O2SAT 94
[2017-12-24] MEDS: DEXAMETHASONE SOD PHOS 4 MG/ML VIAL IV PUSH SCH ×3 (06:16→20:46)
[2017-12-24] MEDS: HEPARIN SODIUM - SQ 10,000 UNITS/ML VIAL SQ SCH ×3 (06:16→20:46)
[2017-12-24 07:34] VITALS: BP 143/76; PULSE 56; RESP 20; TEMP 97.5; O2SAT 94
[2017-12-24] MEDS: PANTOPRAZOLE SOD 40 MG DELAYED RELEASE TAB PO SCH (08:37)
[2017-12-24] MEDS: NIFEdipine 30 MG SUSTAINED RELEASE TAB PO SCH (08:37)
[2017-12-24] MEDS: levETIRAcetam 500 MG TAB PO SCH ×2 (08:37→20:47)
[2017-12-24] MEDS: SODIUM CHLORIDE 0.9% FLUSH 10 ML FLUSH IV FLUSH SCH ×2 (08:38→20:46)
[2017-12-24] MEDS: SODIUM CHLOR 0.9% 1000 ML INJ 1,000 ML IV SCH ×2 (10:40→23:20)
--- NOTE | 2017-12-24 11:54 | HHI.PR ---
Subjective Remarks f/u for brain mass and AMS patient stated she wants to go home and take care of her cats. Then tells me she wants the procedure but wants to take care of her cats. She can tell me her name and location. When I try to come up with solution she looks at me in a confused way. Then repeats that she wants to go home to take care of cats. I spoke to case management and palliative care. Objective Vitals Vital Signs Date Time Temp Pulse Resp B/P (MAP) Pulse Ox O2 Delivery O2 Flow Rate FiO2 12/24/17 07:34 97.5 56 20 143/76 (98) 94 12/24/17 04:00 97.5 56 18 149/78 (101) 94 12/24/17 00:00 97.2 67 18 156/80 (105) 96 12/23/17 20:00 97.8 72 18 177/80 (112) 94 12/23/17 16:00 98.1 92 18 176/85 (115) 97 12/23/17 12:00 97.3 78 18 138/67 (90) 94 I/O 12/23/17 12/23/17 12/23/17 12/24/17 12/24/17 12/24/17 07:00 15:00 23:00 07:00 15:00 23:00 # Voids 3 2 3 Objective Remarks GENERAL: in NAD CARDIOVASCULAR: Regular rate and rhythm without murmurs, gallops, or rubs. RESPIRATORY: Breath sounds equal bilaterally. No accessory muscle use. GASTROINTESTINAL: Abdomen soft, non-tender, nondistended. NEURO: AAO X 2. patient repeats that she wants to go home to take care of cats. Strength grossly intact. Medications and IVs Current Medications Potassium Chloride (KCl) 40 meq ONCE ONCE PO Last administered on 12/15/17at 21 :44; Start 12/15/17 at 21:30; Stop 12/15/17 at 21:32; Status DC Trimethoprim/ Sulfamethoxazole (Bactrim Ds 800-160 Mg) 1 tab ONCE ONCE PO Last administered on 12/15/17at 21:44; Start 12/15/17 at 21:30; Stop 12/15/17 at 21:32; Status DC Sodium Chloride 1,000 ml @ 100 mls/hr Q10H IV Last administered on 12/16/17at 23:19; Start 12/16/17 at 22:42; Stop 12/17/17 at 11:41; Status DC Sodium Chloride (NS Flush) 2 ml UNSCH PRN IV FLUSH FLUSH AFTER USING IV ACCESS ; Start 12/16/17 at 22:45 Sodium Chloride (NS Flush) 2 ml BID IV FLUSH Last administered on 12/24/17at 08: 38; Start 12/17/17 at 09:00 Acetaminophen (Tylenol) 650 mg Q4H PRN PO TEMP > 100.4; Start 12/16/17 at 22:45 Ondansetron HCl (Zofran Inj) 4 mg Q6H PRN IVP NAUSEA OR VOMITING; Start at 22:45 Naloxone HCl (Narcan Inj) 0.4 mg UNSCH PRN IV PUSH SEE LABEL COMMENTS; Start at 22:45 Ceftriaxone Sodium 1000 mg/ Sodium Chloride 100 ml @ 200 mls/hr Q24H IV ; Start 12/17/17 at 00:00; Stop 12/17/17 at 12:32; Status DC Potassium Chloride (KCl) 40 meq ONCE ONCE PO Last administered on 12/16/17at 23 :19; Start 12/16/17 at 23:15; Stop 12/16/17 at 23:16; Status DC Heparin Sodium (Porcine) (Heparin Inj) 5,000 units Q8HR SQ Last administered on 12/24/17at 06:16; Start 12/17/17 at 06:00 Potassium Chloride (KCl) 40 meq Q12HR PO Last administered on 12/17/17at 22:06; Start 12/17/17 at 09:00; Stop 12/17/17 at 21:01; Status DC Hydralazine HCl (Apresoline) 10 mg Q6HR PRN PO SBP>180, DBP>95 Last administered on 12/21/17at 12:28; Start 12/17/17 at 08:15 Enalaprilat (Vasotec Inj) 1.25 mg Q6H PRN IV PUSH SBP>180, DBP>95 Last administered on 12/21/17at 12:28; Start 12/17/17 at 08:15 Nitrofurantoin Macrocrystals (Macrobid) 100 mg BIDPC PO Last administered on at 17:05; Start 12/17/17 at 18:00; Stop 12/23/17 at 21:00; Status DC Nitrofurantoin Macrocrystals (Macrobid) 100 mg ONCE ONCE PO Last administered on 12/17/17at 13:14; Start 12/17/17 at 12:45; Stop 12/17/17 at 12:50; Status DC Dexamethasone Sodium Phosphate (Decadron Inj) 4 mg Q8HR IV PUSH Last administered on 12/24/17at 06:16; Start 12/17/17 at 17:00 Dexamethasone (Decadron) 4 mg ONCE ONCE PO Last administered on 12/17/17at 17: 59; Start 12/17/17 at 17:15; Stop 12/17/17 at 17:16; Status DC Nifedipine (Procardia Xl) 30 mg ONCE ONCE PO Last administered on 12/17/17 17 :59; Start 12/17/17 at 17:15; Stop 12/17/17 at 17:16; Status DC Nifedipine (Procardia Xl) 30 mg DAILY PO Last administered on 12/24/17 08:37; Start 12/18/17 at 09:00 Sodium Chloride 1,000 ml @ 75 mls/hr [id number] IV Last administered on at 12:31; Start 12/17/17 at 18:00 Pantoprazole Sodium (Protonix) 40 mg DAILY PO Last administered on 12/24/17 08 :37; Start 12/18/17 at 09:00 Iohexol (Omnipaque 350 Inj) 100 ml STK-MED ONCE IVCONTRAST Last administered on 12/17/17at 20:31; Start 12/17/17 at 20:31; Stop 12/17/17 at 20:32; Status DC Levetriacetam (Keppra) 500 mg Q12HR PO Last administered on 12/24/17 08:37; Start 12/18/17 at 09:00 Lorazepam (Ativan) 1 mg ASSESSMENT CONSULTANT ONCE PO Last administered on 12/19/17at 17:10; Start 12/19/17 at 16:30; Stop 12/19/17 at 16:31; Status DC Lorazepam (Ativan) 1 mg ASSESSMENT CONSULTANT ONCE PO Last administered on 12/20/17at 14:36; Start 12/20/17 at 12:15; Stop 12/20/17 at 12:16; Status DC Gadodiamide (Omniscan Pf Inj) 20 ml STK-MED ONCE IVCONTRAST Last administered on 12/20/17at 16:00; Start 12/20/17 at 16:00; Stop 12/20/17 at 16:01; Status DC A/P Assessment and Plan 67-year-old female with dementia, presented under Reynolds Act from [facility] for poor living conditions and unable to care for self Brain Mass: Head CT images reviewed, shows >5cm left frontal mass with surrounding edema causing significant midline shift towards the right and downward transtentorial mass effect -Consulted neurosurgery -Brain MRI/MRA/MRV reviewed -Continue on IV Decadron for edema -On Keppra 500mg bid for seizure prophylaxis -Neuro checks, Seizure precautions. Neurology ff. Consulted neurosurgery Dr Dylan hart. -Neurosurgeon recommend craniotomy with mass removal. Discussed case with case management and plan of care. Her sister is the healthcare proxy. She is contemplating hospice. Case management will call me with final decision. Altered mental status 2/ above -Patient eloped from the hospital 12/18/27 twice, Reynolds acted , consult psychiatry also for capacity. -Patient's sister Js Keller is the healthcare proxy. I confirmed this with case management and positive care. Urinary tract infection: UA consistent with UTI with large leukocyte esterase, 23 WBCs, many bacteria, nitrite positive. -Urine culture with E Coli, pansensitive. -Will complete 7 day course of Macrobid BID (stop date 12/23) Dementia, Unable to care for self: Admitted under Reynolds act by the department of hospital social worker. B12, folate, TSH all wnl. RPR negative. -Evaluated by psychiatry upon arrival and reynolds act lifted. -Consult Neurology, appreciate assistance -Case management consulted to assist with placement Hypokalemia: Persistent despite by mouth repletion -Given multiple doses of po KCl -Mag level normal -Repeat BMP shows improvement. Monitor and replace. ERIKA: Suspect due to poor oral intake. Monitor kidney indices -Improving s/p IVF -Avoid nephrotoxic agents -Repeat BMP DVT Prophylaxis: Heparin Discharge Planning Patient sister Yvonne Keller is the healthcare proxy. Patient does not have the capacity to make any medical decision. Per case management Yvonne is contemplating hospice. Palliative care is following. Deirdre Brice MD Dec 24, 2017 11:54
[2017-12-24 12:24] VITALS: BP 181/88; PULSE 81; RESP 20; TEMP 97.4; O2SAT 93
--- NOTE | 2017-12-24 15:02 | PD.CONS ---
[facility] Service Neurosurg Consult Requested By Dr Dunbar Reason for Consult Brain mass Primary Care Physician Unknown History of Present Illness This is a 67-year-old female who was admitted on 12/15/2017 after she presented to the emergency room. She was Reynolds acted. She was very confused and with word-finding difficulties She was found to have an E. coli urinary tract infection and has been on antibiotics. CT scan of the head and MRI showed a large left cribriform plate skull base frontal mass which is on the left side. It also extends on the right side and measures about 5.5 cm in diameter with surrounding edema involving the left frontal lobe extending posteriorly with a mass effect on the ventricles and frontal horns. Neurosurgery consultation was requested Review of Systems Constitutional: DENIES: Diaphoretic episodes, Fatigue, Fever, Weight gain, Weight loss, Chills, Dizziness, Change in appetite, Night Sweats Endocrine: DENIES: Abnorml menstrual pattern, Heat/cold intolerance, Polydipsia , Polyuria, Polyphagia Eyes: DENIES: Blurred vision, Diplopia, Eye inflammation, Eye pain, Vision loss , Photosensitivity, Double Vision Ears, nose, mouth, throat: DENIES: Tinnitus, Hearing loss, Vertigo, Nasal discharge, Oral lesions, Throat pain, Hoarseness, Ear Pain, Running Nose, Epistaxis, Sinus Pain, Toothache, Odynophagia Respiratory: DENIES: Apneas, Cough, Snoring, Wheezing, Hemoptysis, Sputum production, Shortness of breath Cardiovascular: DENIES: Chest pain, Palpitations, Syncope, Dyspnea on Exertion , PND, Lower Extremity Edema, Orthopnea, Claudication Gastrointestinal: DENIES: Abdominal pain, Black stools, Bloody stools, Constipation, Diarrhea, Nausea, Vomiting, Difficulty Swallowing, Anorexia Genitourinary: DENIES: Abnormal vaginal bleeding, Dysmenorrhea, Dyspareunia, Sexual dysfunction, Urinary frequency, Urinary incontinence, Urgency, Hematuria , Dysuria, Nocturia, Vaginal discharge Integumentary: DENIES: Abnormal pigmentation, Pruritus, Rash, Nail changes, Breast masses, Breast skin changes, Nipple discharge Hematologic/lymphatic: DENIES: Bruising, Lymphadenopathy Immunologic/allergic: DENIES: Eczema, Urticaria Neurologic: COMPLAINS OF: Headache, DENIES: Abnormal gait, Localized weakness, Paresthesias, Seizures, Speech Problems, Tremor, Poor Balance Psychiatric: COMPLAINS OF: Anxiety, Confusion, DENIES: Mood changes, Depression , Hallucinations, Agitation, Suicidal Ideation, Homicidal Ideation, Delusions Past Family Social History Allergies: Coded Allergies: No Allergy Information Available (Unverified , 12/15/17) DEMENTIA Family History Was reviewed and non contributory Social History She is from [place]. She drinks alcohol occasionally. Does not smoke cigarettes. Unclear marital status or any relatives. The patient has no one at bedside. Physical Exam Vital Signs Vital Signs Date Time Temp Pulse Resp B/P (MAP) Pulse Ox O2 Delivery O2 Flow Rate FiO2 12/24/17 12:24 97.4 81 20 181/88 (119) 93 12/24/17 07:34 97.5 56 20 143/76 (98) 94 12/24/17 04:00 97.5 56 18 149/78 (101) 94 12/24/17 00:00 97.2 67 18 156/80 (105) 96 12/23/17 20:00 97.8 72 18 177/80 (112) 94 12/23/17 16:00 98.1 92 18 176/85 (115) 97 Physical Exam The patient is alert, awake and oriented to time, place and person. Mild expressive aphasia Cranial nerve examination: pupils to be equal, round and reactive to light. Extra-ocular movements are intact. Facial motor and sensory function are normal and symmetrical. Gross hearing appears intact. Sternocleidomastoid and trapezius muscles are symmetrical. Other cranial nerves are intact. Neck is soft and supple with a good range of motion without pain. Muscle strength is normal in all muscle groups of both upper and lower extremities. Sensory examination is intact to light touch and pin prick in both the upper and lower extremities. Deep tendon reflexes are symmetrical in both upper and lower extremities. There is a bilateral plantar flexion response. Cerebellar examination is unremarkable, without deficits. Lungs are clear Heart regular rythm and rate Abdomen soft Skin dry and warm Laboratory Date/Time Source Procedure Growth Status 12/15/17 20:30 Urine Random Urine Urine Culture - Final Escherichia Coli Complete Assessment and Plan Assessment and Plan Large left frontal skull base cribriform plate mass. This is concerning for likely meningioma, but other possibilities also need to be entertained. Agree with Decadron for the vasogenic and the need for a surgical resection Speech therapy for cognitive speech therapy involvement. Protonix for stress ulcer prophylaxis DVT prophylaxis Kevin Cowan MD Dec 24, 2017 15:02
--- NOTE | 2017-12-24 16:06 | HHI.HCPN ---
Reason for visit a. To assist with evaluation and management of symptoms including: Confusion , agitation b. To assist medical decision maker(s) with: better understanding of current medical conditions; weighing benefits/burdens of medical treatment options; making medical treatment decisions. Subjective/Interval History Patient seen to follow-up on symptoms and goals of care. 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 The patient has been determined to be not capacitated per psychiatry on 2 occasions, however, her sister is willing to be the decision maker. The patient does remain oriented to herself, time and date, and place. She has diminished insight and is unable to grasp the full import of her disease to be able to independently make decisions. She denies any headache, blurry vision, hearing or sensation changes. She is able to move independently, sit up, smiling and entertaining conversation. She remains mildly confused, as it is difficult for her to comprehend the multiple aspects of her diagnosis as well as make plans for treatment. She has limited insight for decision-making. She is mildly agitated when she discusses wanting to go home and get her affairs in order. She calms, with minimal reassurance and does try to maintain a reasonably cooperative attitude. No new laboratory or radiology studies at this time. . Family/friend interactions Her sister states she has had multiple conversations with her over many years and that her goals have been consistent with her currently stated wishes. It is the wish of the family that the patient be discharged home with continued Decadron in her sister's care for 1-2 weeks to get her affairs in order prior to proceeding with surgery. They have previously requested a second opinion from neurosurgery and Dr. Cowan did evaluate the patient during my visit. The patient's wishes were discussed and Dr. Cowan stated that he had no objection to her going home for 2 weeks and continuing the Decadron to allow her to attend to her affairs prior to proceeding with surgery. Patient stated that she was aware that there was a possibility that she could without the surgery, however stated that she could also with the surgery and that the risk was worth it to her in order to attend to things that she felt she needed to at home. Her sister, who attended the conference via telephone, was in agreement with this plan, agreed to assist in her sister's care and was also aware of the risk posed by either leaving the hospital or having the surgery now. If Dr. Dunbar is also in agreement with this, patient would be anxious to return home as soon as possible to expedite matters. . Advance Directives Living Will: Never completed Health Care Surrogate: Never completed Durable Power of Precast Molder: Never completed Advance Directive Specifics Health Care Surrogate(s): Her sister, Karla Keller, would be healthcare proxy by [place] statutes. . Documented care wishes: No living will available. . Objective Vital Signs Date Time Temp Pulse Resp B/P (MAP) Pulse Ox O2 Delivery O2 Flow Rate FiO2 12/24/17 12:24 97.4 81 20 181/88 (119) 93 12/24/17 07:34 97.5 56 20 143/76 (98) 94 12/24/17 04:00 97.5 56 18 149/78 (101) 94 12/24/17 00:00 97.2 67 18 156/80 (105) 96 12/23/17 20:00 97.8 72 18 177/80 (112) 94 12/23/17 16:00 98.1 92 18 176/85 (115) 97 Intake & Output 12/24/17 12/24/17 07:00 19:00 # Voids 3 Physical Exam CONSTITUTIONAL/GENERAL: This is an adequately nourished patient, in no apparent distress. TUBES/LINES/DRAINS: PIV left forearm. SKIN: No jaundice, rashes, or lesions. Ecchymoses on upper extremities. No wounds seen anteriorly. Skin temperature appropriate. Not diaphoretic. HEAD: Atraumatic. Normocephalic. EYES: Pupils equal and round and reactive. Extraocular motions intact. No scleral icterus. No injection or drainage. Fundi not examined. CARDIOVASCULAR: Regular rate and rhythm without murmurs, gallops, or rubs. No JVD. Peripheral pulses symmetric. RESPIRATORY/CHEST: Symmetric, unlabored respirations. Clear to auscultation. Breath sounds equal bilaterally. No wheezes, rales, or rhonchi. GASTROINTESTINAL: Abdomen soft, non-tender, nondistended. No hepato-splenomegaly , or palpable masses. No guarding. Bowel sounds present. GENITOURINARY: Without palpable bladder distension. MUSCULOSKELETAL: Extremities without clubbing, cyanosis, or edema. No joint tenderness or effusion noted. No calf tenderness. No mottling or clubbing. NEUROLOGICAL: Awake and alert. Motor and sensory grossly within normal limits. Lying in bed, oriented to self, time, place with some hesitation and confusion regarding purpose, limited insight. PSYCHIATRIC: Calm, cooperative . Diagnostic Tests Imaging Last Impressions Head/Brain Mag Res Venography 12/20/17 0000 Signed Impressions: Service Date/Time: November 15:36 - CONCLUSION: Short occlusion of the ventral most aspect of the superior sagittal sinus Tommie Solis MD Head Magnetic Resonance Angiography 12/20/17 0000 Signed Impressions: Service Date/Time: November 15:36 - CONCLUSION: 1. The anterior cerebral arteries are being displaced towards the patient's right secondary to the left frontal lobe mass. Otherwise, unremarkable exam. Otis Rae Jr., MD Brain MRI 12/20/17 0000 Signed Impressions: Service Date/Time: November 15:36 - CONCLUSION: 1. There are 2 supratentorial masses, one is mid convexity frontal on the left side causing significant midline shift, ventricular effacement and with edema extending along the anterior corpus callosum and into the left parietal region. A 2nd mass in along the planum sphenoidale and probably causes mass effect on the optic chiasm.. Both masses demonstrate a fairly homogeneous pattern of enhancement. 2. No focal abnormalities of the posterior fossa. Otis Huff MD Chest X-Ray 12/19/17 0000 Signed Impressions: Service Date/Time: Tuesday, December 19, 2017 12:49 - CONCLUSION: Mild left base infiltrates. Tommie Solis MD Head CT 12/17/17 0000 Signed Impressions: Service Date/Time: Sunday, December 17, 2017 20:28 - CONCLUSION: Large frontal skull base and left parafalcine brain mass. Tommie Solis MD Assessment and Plan Disease Oriented Problem List: (1) Brain mass (2) Confusion (3) Dementia Symptom Scale: (1) Agitation 0-10 Scale: Unable to quantify (Patient is mildly agitated, pacing in the room. ) (2) Confusion 0-10 Scale: Unable to quantify (Not oriented to time place or purpose.) Pertinent Non-Medical Issues Psychosocial:She was born in [place] and moved to [place] in the mid 's. She was never and has no children. 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 Spiritual:Spiritual in her own way, but not associated with any organized quaker. Legal: She is currently not capacitated and under a Reynolds act. Ethical issues impacting care: Patient is currently refusing care. . Important Contacts Sister: Karla Keller [employer] crime prevention police officer, Chelsey Bourgeois . Prognosis Her prognosis is guarded. In addition to what is believed to be baseline dementia she also has a 5.5 cm brain mass with a significant midline shift and is pending neurosurgery workup. She is currently refusing the MRA and MRV. Without diagnosis, treatment would be compromised, likely leading to further complications and decline. . Code Status: Full Code Plan PLAN: Legal decision maker: At this time, the patient is not capacitated. Per my discussion with her sister, she has never been , has no children. Her [place] statutes her sister, Karla Castro would be the legal proxy decision- maker. The patient's mother has severe Alzheimer's and is herself now hospitalized. There are no other known relatives. His sister is willing to be the legal decision maker. Goals: To be determined. CODE STATUS: Full code by default, pending sister's evaluation of the situation. SYMPTOMS: * Confusion: Her orientation seems to be improving. She still lacks the insight and judgment to be able to understand her current diagnosis. Per psychiatry, she lacks the capacity to make that decision. She has been evaluated twice by psychiatry and found not capacitated for decision-making. She requested a second opinion regarding her surgery and was seen by Dr. Cowan today. She wishes to go home for 1-2 weeks to get her affairs in order prior to proceeding with surgery, with help from her sister. Per that conversation, Dr. Cowan felt that was reasonable. Pending Dr. Dunbar's evaluation. * Agitation: She is less paranoid today. Her questions are more reasonable and more situationally based. She is seeking information regarding her diagnosis, prognosis and surgery and addressing questions more reasonably. Her agitation worsens when she feels she will be unable to go home and attend to her affairs prior to undergoing surgery. This appears to be very important to the patient and to her sister, who is the decision-maker. They are both aware of the risk of complications and even , but state they feel that that risk is present with or without surgery. Palliative care will continue to follow the patient during hospital course as condition evolves, to assist patient/decision-maker with understanding of their medical conditions, weighing benefits/burdens of treatment options, for clarification of goals of treatment. Additionally will assist with any symptoms of palliative concern. . Attestation To help prompt me to consider important information that might be impacting today's encounter and assessment, information from prior notes written by myself or my colleagues may have been "brought forward" into today's note. My signature on this note, however, is an attestation that I personally performed the exam, history, and/or decision-making noted today, and, unless otherwise indicated, the interactions with patient, family, and staff as well as the review of records all occurred today. I also attest that the listed assessment and stated plan reflect my best clinical judgment today based on the combination of historical information, prior notes, and today's exam/ interactions. When time spent is documented, it refers only to time spent today by the signer, or if indicated, combined time spent today by collaborating physician/nurse practitioner. . Kassi Tang Dec 24, 2017 4:06 pm
[2017-12-24 16:58] VITALS: BP 179/82; PULSE 78; RESP 20; TEMP 97.6; O2SAT 96
--- NOTE | 2017-12-24 17:03 | HHI.NSPN ---
(Tate Cisneros) History Chief Complaint: Confusion and disorientation with expressive aphasia. Improving. (Tate Cisneros) Interval History A 67-year-old female who was admitted on 12/15/2017 after she presented to the emergency room. She was Reynolds acted. She was found by a social media editor at home unable to care for self. Patient is very confused and also has some word-finding difficulty and cannot relate any history to me. When asked if she has a headache, she says yes. When asked if she has any medical problems, she states some physical ailments, but cannot delineate any further. When asked if she has any numbness or paresthesias, she will give an ambivalent answer. She was found to have an E. coli urinary tract infection and has been on antibiotics. CT scan of the head obtained without contrast today reveals a large left cribriform plate skull base frontal mass which is on the left side. It also extends on the right side and measures about 5.5 cm in diameter with surrounding edema involving the left frontal lobe extending posteriorly with a mass effect on the ventricles and frontal horns. Neurosurgery has subsequently been consulted for further treatment recommendations. 12/18/17: Pt awake and alert but confused and disoriented. She has difficulty expressing her thoughts and gets frustrated. History is difficulty to obtain secondary to the expressive aphasia. 12/19/17: Pt with some improvement in her speech and is able to answer some questions with short appropriate response at times which is better than yesterday. Still significant expressive aphasia. 12/20/17: Pt continues to have some improvement in her speech and is able to answer some questions with short sentences that at times are appropriate. Still has expressive aphasia and some confusion. 12/21/17: Pt continues to have improvement in her speech. She has some expressive aphasia but appears to be understanding more. Some confusion and expressive aphasia persists. 12/22/17: Pt awake and alert. Sitting on edge of bed eating lunch with sister at her bedside. Pt states she would like to be discharged home so she can manage some issues at home. She feels she is able to make her decisions. She has been deemed unable to make decisions when she was admitted to the hospital and with the steroids she is having less confusion and less expressive aphasia. She is complaining of any headaches, nausea or vomiting. 12/23/17: Pt awake and alert. Resting comfortably in bed. Denies headaches. No n/v. Pt again expresses her wishes to leave the hospital to attend to her cats and her finances at home. Psychiatry has seen the pt again and determined she is unable to make those decisions. 12/24/17: Pt awake and alert. Denies any headaches, nausea or vomiting. Pt again states her wishes to go home and take care of her cats and other preparations prior to any surgery. Dr. Dunbar has said previously that he is okay with that as long as the patient and her sister understand the risk with this which include but are not limited to worsening edema, seizures, stroke and . He also said he would give her a few weeks of steroids for her to accomplish what she wants but would not recommend more that that and if the steroids are stopped she would likely deteriorate and that could happen quickly. He also said that it would be okay from his standpoint to leave as long as it was deemed legally safe to do so as psychiatry has said the patient is incompetent to make medical decisions but the sister could if this is allowed as the medical decision maker for the patient. (Tate Cisneros) Review of Systems General: Negative for: fever, chills, insomnia Respiratory: Negative for: shortness of breath, cough, sputum Cardiovascular: Negative for: chest pain Gastrointestinal: Negative for: nausea, vomitting, diarrhea, constipation ( Tate Cisneros) Exam Results Vital Signs Date Time Temp Pulse Resp B/P (MAP) Pulse Ox O2 Delivery O2 Flow Rate FiO2 12/24/17 12:24 97.4 81 20 181/88 (119) 93 (Tate Cisneros) Physical Examination General: Pt awake and alert sitting up in bed in no acute distress. Eyes: Pupils equal and sclera anicteric. Resp: CTA bilaterally Heart: NSR no murmurs Abd: Soft positive bs Skin: No cyanosis or erythema Muscle: Moves all 4 extremities with good strength although some difficulty following complex commands. Neuro: Pt awake and alert. Pupils 3mm bilaterally reactive bilaterally. She follows commands but has difficulty follow some more complex commands. She has moderate expressive aphasia and has improved since admission she still has expressive aphasia and cognitive deficits. She is able to speak in some short sentences, but at times has difficulty with word finding and expressing thoughts. (Tate Cisneros) Lab, Micro, Other Results Last Impressions Head/Brain Mag Res Venography 12/20/17 0000 Signed Impressions: Service Date/Time: November 15:36 - CONCLUSION: Short occlusion of the ventral most aspect of the superior sagittal sinus Tommie Solis MD Head Magnetic Resonance Angiography 12/20/17 0000 Signed Impressions: Service Date/Time: November 15:36 - CONCLUSION: 1. The anterior cerebral arteries are being displaced towards the patient's right secondary to the left frontal lobe mass. Otherwise, unremarkable exam. Otis Rae Jr., MD Brain MRI 12/20/17 0000 Signed Impressions: Service Date/Time: November 15:36 - CONCLUSION: 1. There are 2 supratentorial masses, one is mid convexity frontal on the left side causing significant midline shift, ventricular effacement and with edema extending along the anterior corpus callosum and into the left parietal region. A 2nd mass in along the planum sphenoidale and probably causes mass effect on the optic chiasm.. Both masses demonstrate a fairly homogeneous pattern of enhancement. 2. No focal abnormalities of the posterior fossa. Otis Huff MD Chest X-Ray 12/19/17 0000 Signed Impressions: Service Date/Time: Tuesday, December 19, 2017 12:49 - CONCLUSION: Mild left base infiltrates. Tommie Solis MD Head CT 12/17/17 0000 Signed Impressions: Service Date/Time: Sunday, December 17, 2017 20:28 - CONCLUSION: Large frontal skull base and left parafalcine brain mass. Tommie Solis MD 12/24/17 12/24/17 12/25/17 15:00 23:00 07:00 # Voids 3 (Tate Cisneros) Medical Decision Making Impression and Plan A: 1. Large left frontal skull base cribriform plate mass which extends into the right side to cross the midline along with surrounding vasogenic edema extending into the posterior frontal lobe with mass effect on the ventricles. This is concerning for likely meningioma, but other possibilities also need to be entertained. 2. Apparent progressive cognitive decline with dementia which could be related to this bifrontal large mass. 3. Unregulated hypertension. 4. Urinary tract infection. PLAN Continue with Decadron which appears to have helped some with her speech. Continue with Neuro checks. Pt again states her wishes to go home and take care of her cats and other preparations prior to any surgery. Dr. Dunbar has said previously that he is okay with that as long as the patient and her sister understand the risk with this which include but are not limited to worsening edema, seizures, stroke and . He also said he would give her a few weeks of steroids for her to accomplish what she wants but would not recommend more that that and if the steroids are stopped she would likely deteriorate and that could happen quickly. He also said that it would be okay from his standpoint to leave as long as it was deemed legally safe to do so as psychiatry has said the patient is incompetent to make medical decisions but the sister could if this is allowed as the medical decision maker for the patient. We will discuss with other clinicians tomorrow further discharge planning as stated earlier in my note. (Tate Cisneros) Attending Statement The exam, history, and the medical decision-making described in the above note were completed with the assistance of the mid-level provider. I reviewed and agree with the findings presented. I attest that I had a [id number] encounter with the patient on the same day, and personally performed and documented my assessment and findings in the medical record. (Michael Dunbar MD) Tate Cisneros Dec 24, 2017 17:03 Michael Dunbar MD Dec 24, 2017 18:09
[2017-12-24 20:00] VITALS: BP 138/63; PULSE 68; RESP 18; TEMP 97.9; O2SAT 95
[2017-12-25] VITALS: BP 123/61; PULSE 64; RESP 18; TEMP 97.6; O2SAT 97
[2017-12-25 04:00] VITALS: BP 176/70; PULSE 62; RESP 18; TEMP 97.2; O2SAT 95
[2017-12-25] MEDS: HEPARIN SODIUM - SQ 10,000 UNITS/ML VIAL SQ SCH ×2 (06:28→14:00)
[2017-12-25] MEDS: DEXAMETHASONE SOD PHOS 4 MG/ML VIAL IV PUSH SCH ×2 (06:29→14:00)
[2017-12-25 08:05] LABS: HEMATOCRIT 43.7 % (35.0-46.0); HEMOGLOBIN 15.4 GM/DL (11.6-15.3); MEAN CELL VOLUME 86.7 FL (80.0-100.0); MEAN CORPUSCULAR HEMOGLOBIN 30.7 PG (27.0-34.0); MEAN CORPUSCULAR HGB CONC 35.4 % (32.0-36.0); PLATELET COUNT 283 TH/MM3 (150-450); RED BLOOD COUNT 5.04 MIL/MM3 (4.00-5.30); RED CELL DISTRIBUTION WIDTH 13.2 % (11.6-17.2); WHITE BLOOD COUNT 14.2 TH/MM3 (4.0-11.0)
[2017-12-25 08:27] VITALS: BP 139/76; PULSE 57; RESP 20; TEMP 97.5; O2SAT 94
[2017-12-25 08:57] LABS: BICARBONATE 28.9 MEQ/L (21.0-32.0); CALCIUM 9.3 MG/DL (8.5-10.1); CREATININE 1.01 MG/DL (0.50-1.00)
[2017-12-25] MEDS: NIFEdipine 30 MG SUSTAINED RELEASE TAB PO SCH (09:05)
[2017-12-25] MEDS: PANTOPRAZOLE SOD 40 MG DELAYED RELEASE TAB PO SCH (09:05)
[2017-12-25] MEDS: levETIRAcetam 500 MG TAB PO SCH (09:05)
[2017-12-25] MEDS: SODIUM CHLORIDE 0.9% FLUSH 10 ML FLUSH IV FLUSH SCH (09:08)
[2017-12-25] MEDS ORDERED: LEVE500 PO (11:44)
[2017-12-25] MEDS ORDERED: DEXA4TAB PO (11:44)
[2017-12-25] MEDS ORDERED: NIFE30TA8 PO (11:44)
[2017-12-25] MEDS ORDERED: PANT40TA3 PO (11:44)
--- NOTE | 2017-12-25 11:45 | HHI.DCPOC ---
Discharge Care Plan Diagnosis: (1) Brain mass (2) Confusion Goals to Promote Your Health * To prevent worsening of your condition and complications * To maintain your health at the optimal level Directions to Meet Your Goals Take your medications as prescribed Follow your dietary instruction Follow activity as directed Keep your appointments as scheduled Take your immunizations and boosters as scheduled If your symptoms worsen call your PCP, if no PCP go to Urgent Care Center or Emergency Room Smoking is Dangerous to Your Health. Avoid second hand smoke Call the 24-hour hour crisis hotline for domestic abuse at Deirdre Brice MD Dec 25, 2017 11:45
--- NOTE | 2017-12-25 11:48 | HHI.FF ---
Face to Face Verification Diagnosis: (1) Brain mass (2) Confusion (3) Dementia Home Health Nursing Order: Medical education Signs/symptoms of disease process Medication education-adverse effect I have seen patient Tatum Keller on 12/25/17. My clinical findings support the need for the requested home health care services because: Ltd mobility - disease progression Limited ability to care for self I certify that my clinical findings support that this patient is homebound because: Impaired cognitive ability/safety Deirdre Brice MD Dec 25, 2017 11:48
[2017-12-25 12:00] VITALS: BP 171/86; PULSE 76; RESP 20; TEMP 97.6; O2SAT 95
[2017-12-25] MEDS: SODIUM CHLOR 0.9% 1000 ML INJ 1,000 ML IV SCH (12:40)
== END 2017-12-25 14:30 | disposition home health service (06) | DRG 54 ==
LOC: NEDAMB 19:45 → NEDA 12-16 21:34 → NEPHCDU 12-16 23:43 → OBSVTOIN 12-17 17:07 → N05A 12-18 15:20
PROVIDERS: ADMIT Family Medicine; ATTEND Family Medicine
DX: D49.6 Neoplasm of unspecified behavior of brain (principal); G93.6 Cerebral edema; G93.5 Compression of brain; N17.9 Acute kidney failure, unspecified; N30.00 Acute cystitis without hematuria; R47.01 Aphasia; B96.20 Unspecified Escherichia coli [E. coli] as the cause of diseases classified elsewhere; F03.90 Unspecified dementia, unspecified severity, without behavioral disturbance, psychotic disturbance, mood disturbance, and anxiety; I10 Essential (primary) hypertension; E87.6 Hypokalemia; Z82.0 Family history of epilepsy and other diseases of the nervous system
CPT/HCPCS: 70450; 70460; 70544; 70546; 70553; 71045; 76937; 80048; 80053; 81001; 82607; 82746; 83036; 83735; 84443; 85025; 85027; 85610; 85730; 86592; 86777; 86778; 87077; 87086; 87186; 93005; 95819; 99285; A9579; G0378; G8987-GP; G8988-GP; G9168-GN; G9169-GN; G9170-GN; J1100; J1644; J7030; J8540; Q9967

== ENCOUNTER 2018-01-18 12:55 | Inpatient (IN) | payer MEDICARE, OTHER ==
[~2018-01-18] VITALS: Ht 157.5 cm; Wt 101.1 kg
[~2018-01-18 12:55] MED LIST: DEXA4TAB PO; LEVE500 PO; NIFE30TA8 PO; PANT40TA3 PO
[2018-01-18 13:22] VITALS: BP 138/94; PULSE 98; RESP 16; TEMP 98.4; O2SAT 99
--- NOTE | 2018-01-18 13:54 | PD ---
HPI Chief Complaint: Psychiatric Symptoms Time Seen by Provider: 13:37 Travel History International Travel<30 days: No Contact w/Intl Traveler<30days: No Traveled to known affect area: No History of Present Illness HPI 67-year-old female presents to the emergency department under extra take Court order for psychiatric evaluation. According to the court order, she has become aggressive and hostile towards her sister who initiated a court order. The patient states that she lives with her mother who has Alzheimer's disease. The patient knows her name and that she is at the hospital. However, she thinks that the month is August and we are in 2067. The patient states she has a history of a brain mass that was discovered last month. She has not followed up with neurosurgery and states she is unsure what she wants to do. The patient has no medical complaints to me. She denies any chest pain or shortness breath. No abdominal pain. No vomiting. According to chart, she was seen here in November and was followed by neurosurgery. She was discharged on Decadron. The patient does not know what medication she is currently taking , but states that she is on steroids. Moderate severity. PFSH Past Medical History Asthma: No Blood Disorders: No Anxiety: Yes (she wants to see her mother and is a bit anxious as to how she feels) Depression: No Heart Rhythm Problems: No Cancer: No Cardiovascular Problems: No High Cholesterol: No Chemotherapy: No Chest Pain: No Congestive Heart Failure: No COPD: No Diabetes: No (may be diabetic, she is not sure but thinks she might be) Endocrine: No (she thinks she might be diabetic, cant remember) Genitourinary: No Immune Disorder: No Musculoskeletal: Yes (weak and tired) Neurologic: Yes (dementia, can not answer questions fully) Psychiatric: No Reproductive: No Respiratory: No Radiation Therapy: No Sleep Apnea: No Thyroid Disease: No Social History Alcohol Use: Yes (RARELY) Tobacco Use: No Substance Use: No Allergies-Medications (Allergen,Severity, Reaction): Coded Allergies: No Allergy Information Available (Unverified , 01/18/18) DEMENTIA Reported Meds & Prescriptions Reported Meds & Active Scripts Active Dexamethasone 4 Mg Tab 4 Mg PO Q8HR Pantoprazole (Pantoprazole Sodium) 40 Mg Tab 40 Mg PO DAILY Keppra (Levetiracetam) 500 Mg Tab 500 Mg PO Q12HR Nifedipine ER 24 HR (Nifedipine) 30 Mg Tab 30 Mg PO DAILY Review of Systems Except as stated in HPI: all other systems reviewed are Neg Physical Exam Narrative GENERAL: Well-nourished, well-developed female patient, ambulatory. Afebrile. Patient is alert and oriented to person and place only. SKIN: Focused skin assessment warm/dry. HEAD: Normocephalic. Atraumatic. EYES: No scleral icterus. No injection or drainage. NECK: Supple, trachea midline. No JVD or lymphadenopathy. CARDIOVASCULAR: Regular rate and rhythm without murmurs, gallops, or rubs. RESPIRATORY: Breath sounds equal bilaterally. No accessory muscle use. Lungs sounds are clear to auscultation. GASTROINTESTINAL: Abdomen soft, non-tender, nondistended. MUSCULOSKELETAL: No cyanosis, or edema. BACK: Nontender without obvious deformity. No CVA tenderness. Data Data Last Documented VS Vital Signs Date Time Temp Pulse Resp B/P (MAP) Pulse Ox O2 Delivery O2 Flow Rate FiO2 01/18/18 13:22 98.4 98 16 138/94 (109) 99 Orders Orders Complete Blood Count With Diff (01/18/18 13:28) Comprehensive Metabolic Panel (01/18/18 13:28) Urinalysis - C+S If Indicated (01/18/18 13:28) Psych Screen (01/18/18 13:28) Ct Brain W/O Iv Contrast(Rout) (01/18/18 ) Sodium Chlor 0.9% 1000 Ml Inj (Ns 1000 M (01/18/18 15:00) Drug Screen, Random Urine (01/18/18 14:46) Admit Order (Ed Use Only) (01/18/18 16:47) Labs Laboratory Tests Test 01/18/18 13:34 01/18/18 14:30 White Blood Count 15.2 TH/MM3 Red Blood Count 5.44 MIL/MM3 Hemoglobin 16.0 GM/DL Hematocrit 47.6 % Mean Corpuscular Volume 87.6 FL Mean Corpuscular Hemoglobin 29.3 PG Mean Corpuscular Hemoglobin Concent 33.5 % Red Cell Distribution Width 13.9 % Platelet Count 213 TH/MM3 Mean Platelet Volume 7.3 FL Neutrophils (%) (Auto) 94.0 % Lymphocytes (%) (Auto) 2.4 % Monocytes (%) (Auto) 3.4 % Eosinophils (%) (Auto) 0.0 % Basophils (%) (Auto) 0.2 % Neutrophils # (Auto) 14.3 TH/MM3 Lymphocytes # (Auto) 0.4 TH/MM3 Monocytes # (Auto) 0.5 TH/MM3 Eosinophils # (Auto) 0.0 TH/MM3 Basophils # (Auto) 0.0 TH/MM3 CBC Comment DIFF FINAL Differential Comment Blood Urea Nitrogen 33 MG/DL Creatinine 1.05 MG/DL Random Glucose 283 MG/DL Total Protein 7.4 GM/DL Albumin 3.6 GM/DL Calcium Level 9.6 MG/DL Alkaline Phosphatase 48 U/L Aspartate Amino Transf (AST/SGOT) 9 U/L Alanine Aminotransferase (ALT/SGPT) 39 U/L Total Bilirubin 0.7 MG/DL Sodium Level 133 MEQ/L Potassium Level 4.0 MEQ/L Chloride Level 94 MEQ/L Carbon Dioxide Level 25.5 MEQ/L Anion Gap 14 MEQ/L Estimat Glomerular Filtration Rate 52 ML/MIN Urine Color YELLOW Urine Turbidity CLEAR Urine pH 6.0 Urine Specific [place] 1.023 Urine Protein TRACE mg/dL Urine Glucose (UA) 300 mg/dL Urine Ketones NEG mg/dL Urine Occult Blood NEG Urine Nitrite NEG Urine Bilirubin NEG Urine Urobilinogen LESS THAN 2.0 MG/DL Urine Leukocyte Esterase MOD Urine WBC 2 /hpf Urine Squamous Epithelial Cells 2 /hpf Urine Hyaline Casts 6 /lpf Microscopic Urinalysis Comment CULT NOT INDICATED Urine Opiates Screen NEG Urine Barbiturates Screen NEG Urine Amphetamines Screen NEG Urine Benzodiazepines Screen NEG Urine Cocaine Screen NEG Urine Cannabinoids Screen NEG MDM Medical Decision Making Medical Screen Exam Complete: Yes Emergency Medical Condition: Yes Medical Record Reviewed: Yes Interpretation(s) Last Impressions Head CT 01/18/18 0000 Signed Impressions: Service Date/Time: Thursday, January 18, 2018 14:13 - CONCLUSION: 1. Extra-axial left frontal mass again seen with left to right midline shift. This likely related to meningioma. 2. The second extra-axial mass is partially seen more inferiorly. Tate Diez MD Differential Diagnosis Brain mass versus electrolyte abnormality versus UTI versus dementia Narrative Course 67-year-old female presents to the emergency department under court order for psychiatric evaluation. The patient tells me she has a history of a brain mass not reviewed the chart. CBC, CMP, UA, urine drug screen, CT of the brain are ordered and pending. CBC shows leukocytosis 15.2, hemoglobin 16.0, hematocrit 47.6. CMP shows hyponatremia 133, BUN 33, creatinine 1.05, glucose 283. UA is negative for acute infection. UDS is negative. CT of the brain shows extra-axial left frontal mass again seen with [id number] midline shift, is likely related to meningioma, the second extra-axial mass is partially seen more inferiorly. The patient is confused, not following up with neurosurgery, has a brain mass. She will be admitted for further evaluation. She is not appropriate for psychiatric care. I spoke to the hospitalist, Dr. Edge, who states that he wants me to speak with neurosurgery before he will accept admission. I spoke with the neurosurgeon on-call, Dr. Pandya, who states the patient should be admitted and he will consult on her. I spoke again with Dr. Edge who then accepted admission. Diagnosis Primary Impression: Brain mass Additional Impression: Confusion Admitting Information Admitting Physician Requests: Admit Mallory Bean Jan 18, 2018 13:54
[2018-01-18 13:57] LABS: AUTOMATED NEUTROPHIL # 14.3 TH/MM3 (1.8-7.7); BASOPHIL % 0.2 % (0.0-2.0); HEMATOCRIT 47.6 % (35.0-46.0); LYMPH % 2.4 % (9.0-44.0); LYMPHOCYTE # 0.4 TH/MM3 (1.0-4.8); MEAN CELL VOLUME 87.6 FL (80.0-100.0); MEAN CORPUSCULAR HEMOGLOBIN 29.3 PG (27.0-34.0); MEAN CORPUSCULAR HGB CONC 33.5 % (32.0-36.0); MEAN PLATELET VOLUME 7.3 FL (7.0-11.0); MONO % 3.4 % (0.0-8.0); MONOCYTE # 0.5 TH/MM3 (0-0.9); PLATELET COUNT 213 TH/MM3 (150-450); RED BLOOD COUNT 5.44 MIL/MM3 (4.00-5.30); RED CELL DISTRIBUTION WIDTH 13.9 % (11.6-17.2); WHITE BLOOD COUNT 15.2 TH/MM3 (4.0-11.0)
[2018-01-18 14:27] LABS: ALKALINE PHOSPHATASE 48 U/L (45-117); TOTAL BILIRUBIN ADULT 0.7 MG/DL (0.2-1.0); TOTAL PROTEIN 7.4 GM/DL (6.4-8.2)
--- NOTE | 2018-01-18 14:29 | RADRPT ---
EXAM DATE/TIME: 01/18/2018 14:13 [facility] COMPARISON: MRI BRAIN W & W/O CONTRAST, December 20, 2017, 15:36. CT BRAIN W/O CONTRAST, December 17, 2017, 16: 10. INDICATIONS : Altered mental status RADIATION DOSE: 36.72 CTDIvol (mGy) MEDICAL HISTORY : Dementia. SURGICAL HISTORY : None. ENCOUNTER: Initial ACUITY: 1 day PAIN SCALE: 0/10 LOCATION: cranial TECHNIQUE: Multiple contiguous axial images were obtained of the head. Using automated exposure control and adj ustment of the mA and/or kV according to patient size, radiation dose was kept as low as reasonably a chievable to obtain optimal diagnostic quality images. DICOM format image data is available electro nically for review and comparison. FINDINGS: CEREBRUM: The prominent extra-axial mass in the left frontal lobe measures 5.2 x 4.2 cm with adjacent vasogenic edema. There is right to left midline shift and compression upon the frontal horn left lateral ventr icle. Left to right midline shift measures 1.1 cm. The second mass more inferiorly is partially seen. The ventricles are normal for age. No evidence of hemorrhage or acute infarction. No extra-axial f luid collections are seen. POSTERIOR FOSSA: The cerebellum and brainstem are intact. The 4th ventricle is midline. The cerebellopontine angle i s unremarkable. EXTRACRANIAL: The visualized portion of the orbits is intact. SKULL: The calvaria is intact. No evidence of skull fracture. CONCLUSION: 1. Extra-axial left frontal mass again seen with left to right midline shift. This likely related to meningioma. 2. The second extra-axial mass is partially seen more inferiorly. Tate Diez MD on January 18, 2018 at 14:22 Board Certified Radiologist. This report was verified electronically.
[2018-01-18 14:32] LABS: ALBUMIN 3.6 GM/DL (3.4-5.0); ALT (GPT) 39 U/L (10-53); AST (GOT) 9 U/L (15-37); BICARBONATE 25.5 MEQ/L (21.0-32.0); BLOOD UREA NITROGEN 33 MG/DL (7-18); CALCIUM 9.6 MG/DL (8.5-10.1); CHLORIDE 94 MEQ/L (98-107); CREATININE 1.05 MG/DL (0.50-1.00); GLOMERULAR FILTRATION RATE 52 ML/MIN (>89); GLUCOSE,RANDOM 283 MG/DL (74-106); SODIUM (NA) 133 MEQ/L (136-145)
[2018-01-18] MEDS ORDERED: SODIUM CHLOR 0.9% 1000 ML INJ 1,000 ML IV ONE (15:00)
[2018-01-18 15:57] LABS: BILIRUBIN, URINE NEG (NEG); BLOOD, URINE NEG (NEG); GLUCOSE,URINE 300 mg/dL (NEG); HYALINE CAST, URINE 6 /lpf (RARE); KETONE, URINE NEG (NEG); NITRITE,URINE NEG (NEG); SQUAMOUS EPITHELIAL CELL URINE 2 /hpf (0-5); URINE COLOR YELLOW (YELLW/STRAW); URINE LEUKOCYTE ESTERASE MOD (NEG)
--- NOTE | 2018-01-18 19:22 | HHI.HP ---
HPI Service [facility] Primary Care Physician Allan Riley MD Admission Diagnosis brain mass, confusion, ex parte Diagnoses: Chief Complaint: Change of mental status, dementia due to brain mass patient came under take court order due to aggressive behavior with her sister Travel History International Travel<30 Days: No Contact w/Intl Traveler <30 Da: No Traveled to Known Affected Are: No History of Present Illness 67 years old female with history of brain mass followed by neurosurgery, and encephalopathy due to this, presented to the ED under extra take court order for psychiatry evaluation, according to the court order patient become aggressive and hostile toward her sister who initiated the court order. Patient lives with her mother and she has Alzheimer's disease. When I saw the patient she was aware and oriented to the place but not the time, she was able to recognize the situation that she is under take order court but she could not tell me the situation, she said I need to see the neurosurgeon to decide on my surgery. Patient thought it is 1965 then 2018. I discussed with the ED PA who consulted with the neurosurgeon who accepted to see the patient has a consult for further addressing her brain mass issue. In general patient is extremely poor historian to give a detailed history or review of system however she denied any of the potential complain I mentioned to her Review of Systems ROS Limitations: Clinical Condition, Poor Historian All systems was attempted to be reviewed and was basically negative however patient is a poor historian and not reliable due to her brain mass Past Family Social History Past Medical History Unobtainable from the patient Per the record she has1. Large left frontal skull base cribriform plate mass which extends into the right side to cross the midline along with surrounding vasogenic edema extending into the posterior frontal lobe with mass effect on the ventricles. Past Surgical History Unobtainable Allergies: Coded Allergies: No Allergy Information Available (Unverified , 01/18/18) DEMENTIA Family History Unobtainable Social History Unobtainable Physical Exam Vital Signs Vital Signs Date Time Temp Pulse Resp B/P (MAP) Pulse Ox O2 Delivery O2 Flow Rate FiO2 01/18/18 13:22 98.4 98 16 138/94 (109) 99 Physical Exam GENERAL: This is a well-nourished, well-developed patient, in no apparent distress. SKIN: No rashes, warm and dry HEAD: Atraumatic. Normocephalic. EYES: Pupils equal round and reactive. Extraocular motions intact. No scleral icterus. ENT: Nose without bleeding, or drainage, Airway patent. NECK: Trachea midline. Supple CARDIOVASCULAR: Regular rate and rhythm without murmurs, gallops, or rubs. RESPIRATORY: Fair air entry bilaterally. No wheezes, rales, or rhonchi. GASTROINTESTINAL: Abdomen soft, non-tender, nondistended. Positive bowel sounds MUSCULOSKELETAL: Extremities without clubbing, cyanosis, +2 edema. Pedal pulses appreciated NEUROLOGICAL: Awake and alert oriented only to place. Moves all extremity. Normal speech.no focal neurological deficit Laboratory Laboratory Tests Test 01/18/18 13:34 01/18/18 14:30 White Blood Count 15.2 Red Blood Count 5.44 Hemoglobin 16.0 Hematocrit 47.6 Mean Corpuscular Volume 87.6 Mean Corpuscular Hemoglobin 29.3 Mean Corpuscular Hemoglobin Concent 33.5 Red Cell Distribution Width 13.9 Platelet Count 213 Mean Platelet Volume 7.3 Neutrophils (%) (Auto) 94.0 Lymphocytes (%) (Auto) 2.4 Monocytes (%) (Auto) 3.4 Eosinophils (%) (Auto) 0.0 Basophils (%) (Auto) 0.2 Neutrophils # (Auto) 14.3 Lymphocytes # (Auto) 0.4 Monocytes # (Auto) 0.5 Eosinophils # (Auto) 0.0 Basophils # (Auto) 0.0 CBC Comment DIFF FINAL Differential Comment Blood Urea Nitrogen 33 Creatinine 1.05 Random Glucose 283 Total Protein 7.4 Albumin 3.6 Calcium Level 9.6 Alkaline Phosphatase 48 Aspartate Amino Transf (AST/SGOT) 9 Alanine Aminotransferase (ALT/SGPT) 39 Total Bilirubin 0.7 Sodium Level 133 Potassium Level 4.0 Chloride Level 94 Carbon Dioxide Level 25.5 Anion Gap 14 Estimat Glomerular Filtration Rate 52 Urine Color YELLOW Urine Turbidity CLEAR Urine pH 6.0 Urine Specific [place] 1.023 Urine Protein TRACE Urine Glucose (UA) 300 Urine Ketones NEG Urine Occult Blood NEG Urine Nitrite NEG Urine Bilirubin NEG Urine Urobilinogen LESS THAN 2.0 Urine Leukocyte Esterase MOD Urine WBC 2 Urine Squamous Epithelial Cells 2 Urine Hyaline Casts 6 Microscopic Urinalysis Comment CULT NOT INDICATED Urine Opiates Screen NEG Urine Barbiturates Screen NEG Urine Amphetamines Screen NEG Urine Benzodiazepines Screen NEG Urine Cocaine Screen NEG Urine Cannabinoids Screen NEG Result Diagram: 01/18/18 1334 01/18/18 1334 Imaging Last Impressions Head CT 01/18/18 0000 Signed Impressions: Service Date/Time: Thursday, January 18, 2018 14:13 - CONCLUSION: 1. Extra-axial left frontal mass again seen with left to right midline shift. This likely related to meningioma. 2. The second extra-axial mass is partially seen more inferiorly. MD Janice Fulton VTE Risk Assessment Caprini VTE Risk Assessment: Mod/High Risk (score >= 2) Caprini Risk Assessment Model Point Value = 1 Point Value = 2 Point Value = 3 Point Value = 5 Age 41-60 Minor surgery BMI > 25 kg/m2 Swollen legs Varicose veins or History of unexplained or recurrent spontaneous Oral contraceptives or hormone replacement Sepsis (< 1 month) Serious lung disease, including pneumonia (< 1 month) Abnormal pulmonary function Acute myocardial infarction Congestive heart failure (< 1 month) History of inflammatory bowel disease Medical patient at bed rest Age 61-74 Arthroscopic surgery Major open surgery (> 45 min) Laparoscopic surgery (> 45 min) Malignancy Confined to bed (> 72 hours) Immobilizing plaster cast Central venous access Age >= 75 History of VTE Family history of VTE Factor V Leiden Prothrombin [id number] Lupus anticoagulant Anticardiolipin antibodies Elevated serum homocysteine Heparin-induced thrombocytopenia Other congenital or acquired thrombophilia Stroke (< 1 month) Elective arthroplasty Hip, pelvis, or leg fracture Acute spinal cord injury (< 1 month) Prophylaxis Regimen Total Risk Factor Score Risk Level Prophylaxis Regimen 0-1 Low Early ambulation 2 Moderate Order ONE of the following: *Sequential Compression Device (SCD) *Heparin 5000 units SQ BID 3-4 Higher Order ONE of the following medications: *Heparin 5000 units SQ TID *Enoxaparin/Lovenox 40 mg SQ daily (WT < 150 kg, CrCl > 30 mL/min) *Enoxaparin/Lovenox 30 mg SQ daily (WT < 150 kg, CrCl > 10-29 mL/min) *Enoxaparin/Lovenox 30 mg SQ BID (WT < 150 kg, CrCl > 30 mL/min) AND/OR *Sequential Compression Device (SCD) 5 or more Highest Order ONE of the following medications: *Heparin 5000 units SQ TID (Preferred with Epidurals) *Enoxaparin/Lovenox 40 mg SQ daily (WT < 150 kg, CrCl > 30 mL/min) *Enoxaparin/Lovenox 30 mg SQ daily (WT < 150 kg, CrCl > 10-29 mL/min) *Enoxaparin/Lovenox 30 mg SQ BID (WT < 150 kg, CrCl > 30 mL/min) AND *Sequential Compression Device (SCD) Assessment and Plan Assessment and Plan 67 years old female with history of brain mass admitted for aggressive behavior with her sister under court order for psychiatry evaluation - Large left frontal skull base cribriform plate mass which extends into the right side to cross the midline along with surrounding vasogenic edema extending into the posterior frontal lobe with mass effect on the ventricles. This is concerning for likely meningioma, but other possibilities also need to be entertained. Vision previously seen by neurosurgeon Dr. 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
[2018-01-18] MEDS ORDERED: GLUCAGON 1 MG/ML VIAL OTHER PRN (19:30)
[2018-01-18] MEDS ORDERED: DEXTROSE 50% IN WATER 50 ML VIAL(D50) IV PUSH PRN (19:30)
[2018-01-18 20:28] VITALS: BP 122/60; PULSE 66; RESP 15; O2SAT 97
[2018-01-18] MEDS: INSULIN ASPART SUPPLEMENTAL SCALE SQ SCH (21:00)
--- NOTE | 2018-01-18 21:14 | MB ---
cc: Jonny MUIR DATE: 01/18/2018 CHIEF COMPLAINT: Brought to the ER due to a court order. HISTORY OF PRESENT ILLNESS: This is a 67-year-old female patient with history of a previous brain mass for which she underwent evaluation. She was brought today to the emergency room after court order because she became aggressive and hostile at home, the patient lives with her mother, who has Alzheimer disease. She has been fighting with her sister and now she is being brought for medical evaluation and psychiatric evaluation. The patient reports that she was previously seen because of a brain tumor and she still has not decided what to do with it. PAST MEDICAL HISTORY: Not obtainable. ALLERGIES: SHE HAS NO KNOWN ALLERGIES AT THE PRESENT TIME. FAMILY HISTORY: Not obtainable. SOCIAL HISTORY: Not obtainable. REVIEW OF SYSTEMS: Not obtainable at the present time. PHYSICAL EXAMINATION: VITAL SIGNS: Temperature of 98.4, pulse of 98, respirations 16, blood pressure 130/94. GENERAL: Shows a well-developed, well-nourished patient. HEENT: Shows evidence of a scalp hematoma over the right frontal area. NECK: Supple with good carotid pulses bilaterally. CHEST: Symmetric. LUNGS: Clear. HEART: Shows regular rhythm with normal heart sounds. ABDOMEN: Soft and nontender. EXTREMITIES: evidence of a hematoma over the dorsum of the left foot and evidence of abrasions over the elbows. NEUROLOGIC: The patient is alert and awake. She is oriented x 3. She follows commands. Her speech is halting at times. She tends to ramble about her brain tumor. Cranial nerves 2-12 are intact. Motor exam is 5+/5. The patient is right-handed. Sensory exam is intact to touch. Deep tendon reflexes are trace at all sites with negative Babinski bilaterally. IMAGING: Review of a CT scan of the brain shows what appears to be a left frontal mass encroaching upon the falx in the right hemisphere with edema and mass effect. Review of a previous MRI of the brain shows evidence of 2 masses, one in the left frontal area and another one at the level of the planum sphenoidale and cribriform plate which involves both the left and the right side. These appear to be compatible with possible meningioma. OVERALL IMPRESSION: Meningioma, consideration for removal needs to be made. PLAN: The patient is to be admitted to the hospitalist service, undergo medical evaluation and neurosurgery will follow the patient for further determination as to when surgical procedure will be necessary. Jonny VALERIO/ , 08:45 PM , 09:13 PM [place]
[2018-01-18 22:00] VITALS: BP 136/71; PULSE 64; RESP 18; TEMP 97.2; O2SAT 93
[2018-01-18] MEDS: DEXAMETHASONE 4 MG TAB PO SCH (22:09)
[2018-01-18] MEDS: levETIRAcetam 500 MG TAB PO SCH (22:09)
[2018-01-19] VITALS (10 sets, daily range): BP systolic 111–155; BP diastolic 58–81; PULSE 60–97; RESP 18; TEMP 97.1–97.4; O2SAT 93–98
[2018-01-19] MEDS: DEXAMETHASONE 4 MG TAB PO SCH ×3 (06:10→21:27)
[2018-01-19] MEDS: levETIRAcetam 500 MG TAB PO SCH ×2 (08:45→21:27)
[2018-01-19] MEDS: NIFEdipine 30 MG SUSTAINED RELEASE TAB PO SCH (08:45)
[2018-01-19] MEDS: PANTOPRAZOLE SOD 40 MG DELAYED RELEASE TAB PO SCH (08:45)
[2018-01-19] MEDS: INSULIN ASPART SUPPLEMENTAL SCALE SQ SCH ×4 (08:46→21:00)
--- NOTE | 2018-01-19 16:23 | HHI.PR ---
Subjective Remarks Follow up for brain mass, intermittent aggressive, irrational behavior. Patient is currently doing well. She was sent to the hospital ex-parte which was initiated by her sister. At the time of this interview, she is visibly upset that her sister forced her to come to the hospital. No CP, SOB, fever, chills. Objective Vitals Vital Signs Date Time Temp Pulse Resp B/P (MAP) Pulse Ox O2 Delivery O2 Flow Rate FiO2 01/19/18 12:00 97.4 88 18 151/71 (97) 97 01/19/18 08:00 97.1 73 18 155/81 (105) 96 01/19/18 04:00 97.4 69 18 113/58 (76) 93 01/19/18 03:03 65 01/19/18 00:00 97.2 60 18 111/58 (75) 97 01/18/18 22:00 97.2 64 18 136/71 (92) 93 01/18/18 21:58 01/18/18 20:28 66 15 122/60 (80) 97 Room Air I/O 01/18/18 01/18/18 01/18/18 01/19/18 01/19/18 01/19/18 07:00 15:00 23:00 07:00 15:00 23:00 Intake Total 1360 ml Balance 1360 ml Intake Oral 360 ml IV Total 1000 ml # Voids 3 # Bowel Movements 0 Result Diagram: 01/18/18 1334 01/18/18 1334 Imaging Last Impressions Head CT 01/18/18 0000 Signed Impressions: Service Date/Time: Thursday, January 18, 2018 14:13 - CONCLUSION: 1. Extra-axial left frontal mass again seen with left to right midline shift. This likely related to meningioma. 2. The second extra-axial mass is partially seen more inferiorly. Tate Diez MD Objective Remarks GENERAL: Alert, NAD. SKIN: Warm and dry. HEAD: Normocephalic. EYES: No scleral icterus. No injection or drainage. NECK: Supple, trachea midline. No JVD or lymphadenopathy. CARDIOVASCULAR: Regular rate and rhythm without murmurs, gallops, or rubs. RESPIRATORY: Breath sounds equal bilaterally. No accessory muscle use. GASTROINTESTINAL: Abdomen soft, non-tender, nondistended. MUSCULOSKELETAL: No cyanosis, or edema. BACK: Nontender without obvious deformity. No CVA tenderness. A/P Problem List: (1) Brain mass ICD Code: G93.9 - Disorder of brain, unspecified Assessment and Plan Ms. Bruno is a 67 year old female with a history of known brain mass who was sent to the hospital under a court order to get evaluation for aggressive behavior. - Aggressive behavior - Left sided frontal lobe brain mass - Aggressive behavior, irrational thoughts could be due to frontal lobe mass. - Continue Decadron 4mg PO Q8hrs - Appreciate Neurosurgery input. - Continue Keppra - Hypertension - Continue Nifedipine 30mg Qday. Full code. Ambulation. Mahin Hernandez DO Jan 19, 2018 16:23
--- NOTE | 2018-01-19 19:48 | HHI.NSPN ---
History Interval History Patient history of brain tumor. Awaiting decision from family and patient about possible surgery Exam Results Vital Signs Date Time Temp Pulse Resp B/P (MAP) Pulse Ox O2 Delivery O2 Flow Rate FiO2 01/19/18 16:00 97.4 81 18 153/77 (102) 97 01/18/18 20:28 Room Air Intake and Output 01/19/18 01/19/18 01/20/18 08:00 16:00 00:00 Intake Total 360 ml Balance 360 ml Physical Examination Patient remains alert and awake. Is confused. Rambles about the tumor. Moves all extremities well. Sitting up in chair Medical Decision Making Impression and Plan Patient is unchanged. Do not feel she is competent to make decision concerning possible surgery. she may need to have psychiatric evaluation Conversation with the sister needs to be performed to be able to proceed with surgery Jonny Pandya MD Jan 19, 2018 19:48
[2018-01-20] VITALS: BP 135/67; PULSE 62; RESP 16; TEMP 97.5; O2SAT 95
[2018-01-20 04:00] VITALS: BP 137/77; PULSE 62; RESP 18; TEMP 97.3; O2SAT 95
[2018-01-20] MEDS: DEXAMETHASONE 4 MG TAB PO SCH ×3 (06:18→21:33)
[2018-01-20 08:00] VITALS: BP 179/79; PULSE 61; RESP 18; TEMP 97.4; O2SAT 97
[2018-01-20] MEDS: NIFEdipine 30 MG SUSTAINED RELEASE TAB PO SCH (08:32)
[2018-01-20] MEDS: levETIRAcetam 500 MG TAB PO SCH ×2 (08:32→21:33)
[2018-01-20] MEDS: cloNIDine HCL 0.1 MG TAB PO PRN (08:32)
[2018-01-20] MEDS: PANTOPRAZOLE SOD 40 MG DELAYED RELEASE TAB PO SCH (08:32)
[2018-01-20] MEDS: INSULIN ASPART SUPPLEMENTAL SCALE SQ SCH ×4 (08:33→21:41)
[2018-01-20 12:00] VITALS: BP 127/72; PULSE 71; RESP 18; TEMP 98.2; O2SAT 97
[2018-01-20 16:00] VITALS: BP 156/67; PULSE 71; RESP 18; TEMP 98; O2SAT 97
[2018-01-20 21:00] VITALS: BP 128/68; PULSE 64; RESP 17; TEMP 98.5; O2SAT 95
--- NOTE | 2018-01-20 21:21 | HHI.PR ---
Subjective Remarks Follow up for brain mass, aggressive behavior. Patient is currently doing well. No chest pain, SOB, fever, chills. She is much more pleasant, coherent today. She is alert, oriented x 3, NAD. She states that if offered, she will undergo surgical intervention. Objective Vitals Vital Signs Date Time Temp Pulse Resp B/P (MAP) Pulse Ox O2 Delivery O2 Flow Rate FiO2 01/20/18 16:00 98.0 71 18 156/67 (96) 97 01/20/18 12:00 98.2 71 18 127/72 (90) 97 01/20/18 08:00 97.4 61 18 179/79 (112) 97 01/20/18 04:00 97.3 62 18 137/77 (97) 95 01/20/18 00:00 97.5 62 16 135/67 (89) 95 I/O 01/19/18 01/19/18 01/19/18 01/20/18 01/20/18 01/20/18 07:00 15:00 23:00 07:00 15:00 23:00 Intake Total 1360 ml Balance 1360 ml Intake Oral 360 ml IV Total 1000 ml # Voids 3 # Bowel Movements 0 Result Diagram: 01/18/18 1334 01/18/18 1334 Imaging Last Impressions Head CT 01/18/18 0000 Signed Impressions: Service Date/Time: Thursday, January 18, 2018 14:13 - CONCLUSION: 1. Extra-axial left frontal mass again seen with left to right midline shift. This likely related to meningioma. 2. The second extra-axial mass is partially seen more inferiorly. Tate Diez MD Objective Remarks GENERAL: Alert, NAD. Oriented x 3. SKIN: Warm and dry. HEAD: Normocephalic. EYES: No scleral icterus. No injection or drainage. NECK: Supple, trachea midline. No JVD or lymphadenopathy. CARDIOVASCULAR: Regular rate and rhythm without murmurs, gallops, or rubs. RESPIRATORY: Breath sounds equal bilaterally. No accessory muscle use. GASTROINTESTINAL: Abdomen soft, non-tender, nondistended. MUSCULOSKELETAL: No cyanosis, or edema. BACK: Nontender without obvious deformity. No CVA tenderness. Procedures None. A/P Problem List: (1) Brain mass ICD Code: G93.9 - Disorder of brain, unspecified Assessment and Plan Ms. Bruno is a 67 year old female with a history of known brain mass who was sent to the hospital under a court order to get evaluation for aggressive behavior. - Aggressive behavior - Left sided frontal lobe brain mass - During my evaluation today 01/20/2018, patient was very appropriate, coherent, no evidence of confusion. She is alert, oriented x 3. Has good insight to her disease process. She was also able to answer some simple math question. - As of today's evaluation, I DO believe patient has CAPACITY to make her own medical decision. - Later I discussed with sister who is younger to this patient. Sister insists that patient normally would not like to undergo any surgical intervention. However, because patient is mad at her sister, she wants to do surgery. - With today's evaluation and lucid behavior, patient wants to consider surgical intervention. Also, her behavioral problems may improve after frontal lobe mass resection. - Will get another opinion from Psychiatry. - I will discuss with Dr. Dunbar who evaluated this patient previously I believe. - Continue Decadron 4mg PO Q8hrs - Appreciate Neurosurgery input. - Continue Keppra - Hypertension - Continue Nifedipine 30mg Qday. Full code. Ambulation. Mahin Hernandez DO Jan 20, 2018 21:21
[2018-01-21] VITALS: BP 122/76; PULSE 65; RESP 18; TEMP 98; O2SAT 96
[2018-01-21 04:50] VITALS: BP 120/80; PULSE 60; RESP 16; TEMP 98.2; O2SAT 97
[2018-01-21] MEDS: DEXAMETHASONE 4 MG TAB PO SCH ×3 (05:40→21:44)
[2018-01-21 08:07] VITALS: BP 172/84; PULSE 75; RESP 20; TEMP 97.7; O2SAT 95
[2018-01-21] MEDS: NIFEdipine 30 MG SUSTAINED RELEASE TAB PO SCH (09:03)
[2018-01-21] MEDS: levETIRAcetam 500 MG TAB PO SCH ×2 (09:03→21:44)
[2018-01-21] MEDS: INSULIN ASPART SUPPLEMENTAL SCALE SQ SCH ×4 (09:03→21:45)
[2018-01-21] MEDS: PANTOPRAZOLE SOD 40 MG DELAYED RELEASE TAB PO SCH (09:03)
[2018-01-21 12:00] VITALS: BP 159/79; PULSE 83; RESP 20; TEMP 97.6; O2SAT 93
--- NOTE | 2018-01-21 13:12 | PD.CONS ---
Consult Service Palliative Care Consult Requested By Dr. Hernandez . Primary Care Physician Allan Riley MD Reason for Consultation a. To assist with evaluation and management of symptoms including: Confusion , agitation b. To assist medical decision maker(s) with: better understanding of current medical conditions; weighing benefits/burdens of medical treatment options; making medical treatment decisions. (Kassi Tang) HPI History of Present Illness This is a 67-year-old female who was brought to the emergency department under an ex parte court order for psychiatric evaluation. According to the court order she had become aggressive and hostile towards her sister who subsequently initiated the court order. She had previously been admitted December 15, 2017, also under a Reynolds act, initiated by the pediatric social worker from [facility] at home. 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 At that admission, she and her mother were found confused in a parking lot looking for a grocery store. During that admission she underwent brain MRI showing 2 masses in the frontal region, the larger of which was left parafalcine measuring 5.6 x 4.0 cm, heterogeneous moderate intensity contrast enhancement pattern with a 14 mm midline shift to the right and associated significant cerebral edema in the left hemisphere and tracking along the anterior horn of the corpus callosum. A second mass was found along the planum sphenoid fang with epi centered in the midline and measured 3.2 x 3.6 cm in axial dimension and 1.6 cm in superior/inferior dimension. Enhancement pattern was fairly homogeneous and the margins were lobulated but fairly smooth. That mass extended posteriorly and caused partial obscuration of the optic chiasm. She was seen by Dr. Dunbar for neurosurgery at that visit but did not want surgery. She was seen by psychiatry at that admission and deemed incapacitated to make her own decisions. Her sister, Yvonne, traveled down from [place] to assist in the care of her mother and sister and served as the decision-maker. She was willing to abide by the patient's stated wishes that she did not wish to undergo surgery at that time. At that admission she was started on dexamethasone and requested to go home and "get her affairs in order" before scheduling surgery as an outpatient. Patient was discharged home in the care of her sister and subsequently developed more behavioral changes, eventually instigating her sister to initiate the ex parte court order. She was admitted and seen by neurosurgery who felt that she was confused and unable to make her own decisions. Further follow-up by the hospitalist found that she was reasonable, calm and he felt she might be able to make her own decisions. Psychiatry has been consulted to evaluate capacity. ED course: * Laboratory: WBC 15.2, hemoglobin 16.0, hematocrit 47.6, platelets 213, sodium 133, potassium 4.0, BUN 33, potassium 1.05, AST 9, ALT 39, alkaline phosphatase 48, total protein 7.4, albumin 3.6, urinalysis negative, drug tox screen negative. * Radiology:CT of the brain done on this admission showed the prominent extra- axial mass in the left frontal lobe to measure 5.2 x 4.2 cm with adjacent vasogenic edema, right to left midline shift and compression upon the frontal horn left lateral ventricle. Left to right midline shift measured 1.1 cm. The second mass was noted to be more inferior and partially seen. At this evaluation, she is pleasant, smiling and recognizes me from the previous admission. She verbalizes discomfort with having to have brain surgery , but states she "wants to get well" so is willing to do it. She is answering appropriately at this evaluation, states that she knows she may not do well from the surgery but is not doing well without surgery, so is willing to take the risk. . Function/Cognitive Trajectory Per reports, she has become progressively more agitated and confused since her discharge from the hospital in November. Her sister reports and increasing level of paranoia and hostility. She denies any headache but does state "my vision has changed". She is unable to elucidate further on that, but denies floaters, light flashes, visual loss but does say it is diminished. . (Kassi Tang) Review of Systems Psychiatric: COMPLAINS OF: Anxiety, Confusion, Mood changes (Kassi Tang) Past Family Social History Coded Allergies: No Allergy Information Available (Unverified , 01/18/18) DEMENTIA Past Medical History Hypertension . Past Surgical History No past surgeries. . Reported Medications Reported Meds & Active Scripts Active Dexamethasone 4 Mg Tab 4 Mg PO Q8HR Pantoprazole (Pantoprazole Sodium) 40 Mg Tab 40 Mg PO DAILY Keppra (Levetiracetam) 500 Mg Tab 500 Mg PO Q12HR Nifedipine ER 24 HR (Nifedipine) 30 Mg Tab 30 Mg PO DAILY Current Medications Medications (Trade) Dose Ordered Sig/Yancy Route Start Time Stop Time Status Last Admin (Decadron) 4 mg Q8HR PO 01/18/18 22:00 01/21/18 05:40 (Keppra) 500 mg Q12HR PO 01/18/18 21:00 01/21/18 09:03 (Procardia Xl) 30 mg DAILY PO 01/19/18 09:00 01/21/18 09:03 (Protonix) 40 mg DAILY PO 01/19/18 09:00 01/21/18 09:03 (Catapres) 0.1 mg Q6H PRN PO 01/18/18 19:30 01/20/18 08:32 (NovoLOG SUPPLEMENTAL SCALE) 1 ACHS SLIDING SCALE SQ 01/18/18 21:00 01/21/18 09:03 (Glucagon Inj) 1 mg UNSCH PRN OTHER 01/18/18 19:30 (D50w (Vial) Inj) 50 ml UNSCH PRN IV PUSH 01/18/18 19:30 . Family History Mother is alive with dementia at age 90, now in the hospital. Father in his 80's of aspiration of emesis. . Substance Use Tobacco: No previous or present use. Alcohol: No previous or present use. Prescription med abuse: No history of drug abuse. Illicits: No history of illicit drug abuse. Psychosocial History She was born in [place] and moved to [place] in the mid 's. She was never and has no children. 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 . Spiritual/Cultural Factors Spiritual in her own way, but not associated with any organized zoroastrianism. . (Kassi Tang) Living Will: Never completed Health Care Surrogate: Never completed Durable Power of Damage Appraiser: Never completed Health Care Surrogate(s): Never completed. Documented care wishes: Never completed. . Today's verbally stated goals: Today she states she wants to get well. . Family/friends goals: Her sister, Karla, wishes to abide by her sisters decisions and feels that she had been consistent in her wishes not to accept surgery, but is willing to accept her sister's surgery if her sister is found competent to make that decision. . Ethical and Legal Issues Patient was admitted under an ex-parte today court order. . (Kassi Tang) Physical Exam Vital Signs Date Time Temp Pulse Resp B/P (MAP) Pulse Ox O2 Delivery O2 Flow Rate FiO2 01/21/18 08:07 97.7 75 20 172/84 (113) 95 01/21/18 04:50 98.2 60 16 120/80 (93) 97 01/21/18 00:00 98.0 65 18 122/76 (91) 96 01/20/18 21:00 98.5 64 17 128/68 (88) 95 01/20/18 16:00 98.0 71 18 156/67 (96) 97 Exam CONSTITUTIONAL/GENERAL: This is an adequately nourished patient, in no apparent distress. TUBES/LINES/DRAINS: PIV SKIN: No jaundice, rashes, or lesions. No wounds seen anteriorly. Skin temperature appropriate. Not diaphoretic. HEAD: Atraumatic. Normocephalic. EYES: Pupils equal and round and reactive. Extraocular motions intact. No scleral icterus. No injection or drainage. Fundi not examined. ENT: Hearing grossly normal. Nose without bleeding or purulent drainage. Throat without visible erythema, exudates, masses, or lesions. NECK: Trachea midline. Supple, nontender. No palpable thyroid enlargement or nodularity. CARDIOVASCULAR: Regular rate and rhythm without murmurs, gallops, or rubs. No JVD. Peripheral pulses symmetric. RESPIRATORY/CHEST: Symmetric, unlabored respirations. Clear to auscultation. Breath sounds equal bilaterally. No wheezes, rales, or rhonchi. GASTROINTESTINAL: Abdomen soft, non-tender, nondistended. No hepato-splenomegaly , or palpable masses. No guarding. Bowel sounds present. GENITOURINARY: Without palpable bladder distension. MUSCULOSKELETAL: Extremities without clubbing, cyanosis, or edema. No joint tenderness or effusion noted. No calf tenderness. No mottling or clubbing. LYMPHATICS: No palpable cervical or supraclavicular adenopathy. NEUROLOGICAL: Awake and alert. Motor and sensory grossly within normal limits. Follows commands. Answers questions appropriately. Moves all extremities. PSYCHIATRIC: No obvious anxiety/depression. no apparent hallucinations or other psychotic thought process. . (Kassi Tang) Diagnostic Tests Laboratory Laboratory Tests Test 01/18/18 13:34 01/18/18 14:30 White Blood Count 15.2 TH/MM3 (4.0-11.0) Red Blood Count 5.44 MIL/MM3 (4.00-5.30) Hemoglobin 16.0 GM/DL (11.6-15.3) Hematocrit 47.6 % (35.0-46.0) Mean Corpuscular Volume 87.6 FL (80.0-100.0) Mean Corpuscular Hemoglobin 29.3 PG (27.0-34.0) Mean Corpuscular Hemoglobin Concent 33.5 % (32.0-36.0) Red Cell Distribution Width 13.9 % (11.6-17.2) Platelet Count 213 TH/MM3 (150-450) Mean Platelet Volume 7.3 FL (7.0-11.0) Neutrophils (%) (Auto) 94.0 % (16.0-70.0) Lymphocytes (%) (Auto) 2.4 % (9.0-44.0) Monocytes (%) (Auto) 3.4 % (0.0-8.0) Eosinophils (%) (Auto) 0.0 % (0.0-4.0) Basophils (%) (Auto) 0.2 % (0.0-2.0) Neutrophils # (Auto) 14.3 TH/MM3 (1.8-7.7) Lymphocytes # (Auto) 0.4 TH/MM3 (1.0-4.8) Monocytes # (Auto) 0.5 TH/MM3 (0-0.9) Eosinophils # (Auto) 0.0 TH/MM3 (0-0.4) Basophils # (Auto) 0.0 TH/MM3 (0-0.2) CBC Comment DIFF FINAL Differential Comment Blood Urea Nitrogen 33 MG/DL (7-18) Creatinine 1.05 MG/DL (0.50-1.00) Random Glucose 283 MG/DL (74-106) Total Protein 7.4 GM/DL (6.4-8.2) Albumin 3.6 GM/DL (3.4-5.0) Calcium Level 9.6 MG/DL (8.5-10.1) Alkaline Phosphatase 48 U/L (45-117) Aspartate Amino Transf (AST/SGOT) 9 U/L (15-37) Alanine Aminotransferase (ALT/SGPT) 39 U/L (10-53) Total Bilirubin 0.7 MG/DL (0.2-1.0) Sodium Level 133 MEQ/L (136-145) Potassium Level 4.0 MEQ/L (3.5-5.1) Chloride Level 94 MEQ/L (98-107) Carbon Dioxide Level 25.5 MEQ/L (21.0-32.0) Anion Gap 14 MEQ/L (5-15) Estimat Glomerular Filtration Rate 52 ML/MIN (>89) Urine Color YELLOW (YELLW/STRAW) Urine Turbidity CLEAR (CLEAR) Urine pH 6.0 (5.0-8.5) Urine Specific Mellette 1.023 (1.002-1.035) Urine Protein TRACE mg/dL (NEG-TRACE) Urine Glucose (UA) 300 mg/dL (NEG) Urine Ketones NEG mg/dL (NEG) Urine Occult Blood NEG (NEG) Urine Nitrite NEG (NEG) Urine Bilirubin NEG (NEG) Urine Urobilinogen LESS THAN 2.0 MG/DL (LESS Urine Leukocyte Esterase MOD (NEG) Urine WBC 2 /hpf (0-5) Urine Squamous Epithelial Cells 2 /hpf (0-5) Urine Hyaline Casts 6 /lpf (RARE) Microscopic Urinalysis Comment CULT NOT INDICATED Urine Opiates Screen NEG (NEG) Urine Barbiturates Screen NEG (NEG) Urine Amphetamines Screen NEG (NEG) Urine Benzodiazepines Screen NEG (NEG) Urine Cocaine Screen NEG (NEG) Urine Cannabinoids Screen NEG (NEG) . (Kassi Tang) Result Diagram: 01/18/18 1334 01/18/18 1334 Imaging Last Impressions Head CT 01/18/18 0000 Signed Impressions: Service Date/Time: Thursday, January 18, 2018 14:13 - CONCLUSION: 1. Extra-axial left frontal mass again seen with left to right midline shift. This likely related to meningioma. 2. The second extra-axial mass is partially seen more inferiorly. Tate Diez MD . (Kassi Tang) Patient/Family Conference Present at Family Conference: No family at bedside. Discussed with sister via phone. Sister is willing to be the decision-maker if patient is found incapacitated but willing to support her sister in any decision she makes if she is capacitated. . Family Conference Location: Telephone Issues Discussed: * Palliative care role, purpose, approach * Additional medical, psychosocial, and spiritual history * Patients general health, functional status, and cognitive changes in the months leading up to the current hospitalization * Patient/family understanding of the current medical problems * Patient/family understanding of prognosis * Patients goals of care as best understood from advance directives and/or conversations and/or values * Current medical treatment options and benefits/burdens of those options * Likely scenarios comparing ongoing aggressive care with a transition to comfort measures only * Questions answered to the best of my ability * Palliative care contact information provided (Kassi Tang) Assessment and Plan Disease Oriented Problem List: (1) Brain mass (2) Confusion (3) Agitation Symptom Scale: (1) Confusion 0-10 Scale: Unable to quantify (Confusion is intermittent. Oriented to person place purpose and time at this evaluation.) (2) Agitation 0-10 Scale: Unable to quantify (Intermittent. No agitation at this time..) Pertinent Non-Medical Issues Psychosocial:She was born in [place] and moved to [place] in the mid 's. She was never and has no children. 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 Spiritual: Spiritual in her own way but not associated with any organized zoroastrianism. Legal: Pending psychiatry consultation to determine capacity to make decisions. Ethical issues impacting care: Admitted under ex parte court order. . Important Contacts Sister: Karla Keller DCF project controls scheduler, Chelsey Bourgeois . Prognosis Her prognosis is guarded. It is unknown whether her intermittent confusion is secondary to baseline dementia or brain masses. She has been brought in under court order twice in the last month, once under a Reynolds act, the second 1 under an ex parte order. She has 2 very large masses in her brain, thought to be meningiomas, and is awaiting evaluation by neurosurgery to determine whether surgery is appropriate and if so when it would be scheduled. With surgery, she is at risk for surgical complications and postoperative deficits, without surgery she is at risk for further complications and decline. . Code Status: Full Code Plan PLAN: Legal decision maker: At this time, psychiatry evaluation is pending to determine capacity. ED physician and neurosurgeon found her confused, Dr. Hernandez feels that she is capacitated at this time. Her sister, Karla, is available to serve as decision-maker if patient is not capacitated. Goals: Aggressive at this time. CODE STATUS: FULL CODE SYMPTOMS: * Confusion: She is currently oriented X 4 and able to grasp the ramifications of her current situation, but her confusion comes and goes. Unknown whether this is related to a baseline dementia or brain mass process. Pending neurosurgery and psychiatry evaluations to determine future care. * Agitation: She is currently not agitated and resting quietly in bed, but was admitted via court order due to agitation and confusion at home. She does have some anxiety related to her understanding of the potential surgery and would likely benefit from an anxiolytic on an as-needed basis. SUMMARY This is a 67-year-old female brought into the hospital under an ex parte court order who has been followed in the past by [facility] as she had been unable to provide care for herself or her mother, for whom she had been the caregiver. She has a known mass in her brain, thought to be a meningioma. We are awaiting psychiatry consult to determine capacity to make these decisions and neurosurgery evaluation to determine future course. She would be hospice appropriate if goals were consistent. Palliative care will continue to follow the patient during hospital course as condition evolves, to assist patient/decision-maker with understanding of their medical conditions, weighing benefits/burdens of treatment options, for clarification of goals of treatment. Additionally will assist with any symptoms of palliative concern. . (Kassi Tang) Thank you for the opportunity to participate in the care of Ms. Keller. (Kassi Tang) Attestation To help prompt me to consider important information that might be impacting today's encounter and assessment, information from prior notes written by myself or my colleagues may have been "brought forward" into today's note. My signature on this note, however, is an attestation that I personally performed the exam, history, and/or decision-making noted today, and, unless otherwise indicated, the interactions with patient, family, and staff as well as the review of records all occurred today. I also attest that the listed assessment and stated plan reflect my best clinical judgment today based on the combination of historical information, prior notes, and today's exam/ interactions. When time spent is documented, it refers only to time spent today by the signer, or if indicated, combined time spent today by collaborating physician/nurse practitioner. . (Kassi Tang) Collaborating MD Comments Chart reviewed. Case discussed with palliative care BULKING MACHINE OPERATOR. Above BULKING MACHINE OPERATOR note reviewed and I concur. . (Jeremie Small MD) Kassi Tang Jan 21, 2018 13:12 Jeremie Small MD Feb 03, 2018 14:36
--- NOTE | 2018-01-21 14:52 | PD.PSY.CON ---
Provisional Diagnosis Admission Date Jan 18, 2018 at 16:50 Moffit I. Psychological factors affecting a medical condition Moffit II. Deferred Moffit III. 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 Left sided frontal lobe brain mass. During my evaluation today 01/20/2018, patient was very appropriate, coherent, no evidence of confusion. She is alert, oriented x 3. Has good insight to her disease process. She was also able to answer some simple math question As of today's evaluation, I DO believe patient has CAPACITY to make her own medical decision. Later I discussed with sister who is younger to this patient. Sister insists that patient normally would not like to undergo any surgical intervention. However, because patient is mad at her sister, she wants to do surgery.With today's evaluation and lucid behavior, patient wants to consider surgical intervention. Also, her behavioral problems may improve after frontal lobe mass resection. She was consulted to psychiatry for assessment of decision-making capacity. On psychiatric evaluation today I find a patient is calm, cooperative, and pleasant. The patient reports that she wants to work with the team to get better. She states that she is determined to live and she does not want to . Patient reports good mood, denies anhedonia, denies hopelessness, denies helplessness, she denies suicidal and homicidal ideation, she denies visual and auditory hallucinations. The patient does report that the reason she was aggressive at home is because her sister has been doing "a lot of things to stay with my mother's house". She reports that she is not a gregarious person, but she prefers to stay at home and not have many friends "that is the way I have been my whole life". She says that she does not have any intentions to hurt her sister, but they argue very often. Patient seems to be aware of the nature of her mass in the brain she also reports having hypertension. Patient states that she is willing to follow medical recommendations "as long as they want the best for me". Patient is fully oriented 3, the patient has conservative recent and immediate recall, executive functioning, abstract thinking and concentration. Review of Systems Constitutional: DENIES: Diaphoretic episodes, Fatigue, Fever, Weight gain, Weight loss, Chills, Dizziness, Change in appetite, Night Sweats Endocrine: DENIES: Abnorml menstrual pattern, Heat/cold intolerance, Polydipsia , Polyuria, Polyphagia Eyes: DENIES: Blurred vision, Diplopia, Eye inflammation, Eye pain, Vision loss , Photosensitivity, Double Vision Ears, nose, mouth, throat: DENIES: Tinnitus, Hearing loss, Vertigo, Nasal discharge, Oral lesions, Throat pain, Hoarseness, Ear Pain, Running Nose, Epistaxis, Sinus Pain, Toothache, Odynophagia Respiratory: DENIES: Apneas, Cough, Snoring, Wheezing, Hemoptysis, Sputum production, Shortness of breath Cardiovascular: DENIES: Chest pain, Palpitations, Syncope, Dyspnea on Exertion , PND, Lower Extremity Edema, Orthopnea, Claudication Gastrointestinal: DENIES: Abdominal pain, Black stools, Bloody stools, Constipation, Diarrhea, Nausea, Vomiting, Difficulty Swallowing, Anorexia Genitourinary: DENIES: Abnormal vaginal bleeding, Dysmenorrhea, Dyspareunia, Sexual dysfunction, Urinary frequency, Urinary incontinence, Urgency, Hematuria , Dysuria, Nocturia, Vaginal discharge Musculoskeletal: DENIES: Joint pain, Muscle aches, Stiffness, Joint Swelling, Back pain, Neck pain Integumentary: DENIES: Abnormal pigmentation, Pruritus, Rash, Nail changes, Breast masses, Breast skin changes, Nipple discharge Hematologic/lymphatic: DENIES: Bruising, Lymphadenopathy Immunologic/allergic: DENIES: Eczema, Urticaria Neurologic: DENIES: Abnormal gait, Headache, Localized weakness, Paresthesias, Seizures, Speech Problems, Tremor, Poor Balance Psychiatric: DENIES: Anxiety, Confusion, Mood changes, Depression, Hallucinations, Agitation, Suicidal Ideation, Homicidal Ideation, Delusions Past Family Social History Coded Allergies: No Allergy Information Available (Unverified , 01/18/18) DEMENTIA Active Scripts Dexamethasone (Dexamethasone) 4 Mg Tab, 4 MG PO Q8HR for brain mass/inflamation , #90 TAB 0 Refills Prov:VanDeirdre Nat MD 12/25/17 Pantoprazole (Pantoprazole) 40 Mg Tab, 40 MG PO DAILY for prevent gastric ulcers , #30 TAB 0 Refills Prov:Deirdre Brice MD 12/25/17 Levetiracetam (Keppra) 500 Mg Tab, 500 MG PO Q12HR for prevent seizures, #60 TAB 0 Refills Prov:Deirdre Brice MD 12/25/17 Nifedipine ER 24 HR (Nifedipine ER 24 HR) 30 Mg Tab, 30 MG PO DAILY for hypertension, #30 TAB 0 Refills Prov:Deirdre Brice MD 12/25/17 Current Medications Medications (Trade) Dose Ordered Sig/Yancy Route Start Time Stop Time Status Last Admin (Decadron) 4 mg Q8HR PO 01/18/18 22:00 01/21/18 12:46 (Keppra) 500 mg Q12HR PO 01/18/18 21:00 01/21/18 09:03 (Procardia Xl) 30 mg DAILY PO 01/19/18 09:00 01/21/18 09:03 (Protonix) 40 mg DAILY PO 01/19/18 09:00 01/21/18 09:03 (Catapres) 0.1 mg Q6H PRN PO 01/18/18 19:30 01/20/18 08:32 (NovoLOG SUPPLEMENTAL SCALE) 1 ACHS SLIDING SCALE SQ 01/18/18 21:00 01/21/18 12:46 (Glucagon Inj) 1 mg UNSCH PRN OTHER 01/18/18 19:30 (D50w (Vial) Inj) 50 ml UNSCH PRN IV PUSH 01/18/18 19:30 Family Psych History No family psychiatric history Social History Patient was born and raised in [place], she lives in [facility] with her mother, , no kids, her highest level of education is some college Physical Exam Vital Signs Vital Signs Date Time Temp Pulse Resp B/P (MAP) Pulse Ox O2 Delivery O2 Flow Rate FiO2 01/21/18 12:00 97.6 83 20 159/79 (105) 93 01/18/18 20:28 Room Air I/O 01/21/18 01/21/18 01/22/18 08:00 16:00 00:00 Intake Total 1000 ml Balance 1000 ml Mental Status Examination Appearance: Appropriate Consciousness: Alert Orientation: x4 Motor Activity: Normal gait Speech: Unremarkable Language: Adequate Fund of Knowledge: Adequate Attention and Concentration: Adequate Memory: Unremarkable Mood: Appropriate Affect: Appropriate Thought Process & Associations: Intact Thought Content: Appropriate Hallucination Type: None Delusion Type: None Suicidal Ideation: No Suicidal Plan: No Suicidal Intention: No Homicidal Ideation: No Homicidal Plan: No Homicidal Intention: No Insight: Adequate Judgment: Adequate Assessment & Plan Problem List: (1) Psychological factors affecting medical condition ICD Codes: F54 - Psychological and behavioral factors associated with disorders or diseases classified elsewhere Assessment & Plan: At the moment of this psychiatric evaluation the patient does not present any evidence of depressive symptoms, anxiety, dane or psychosis. The patient denies suicidal and homicidal ideation, she denies visual and auditory hallucinations. The patient shows good insight, she verbalized good understanding and appreciation of medical condition, her choice is to continue her medical medications or recommendations, she is fully oriented 3, logical, coherent and relevant. She definitely has decision- making capacity to participate in medical decisions at this moment. However, due to mass located in frontal lobe the patient has an elevated risk of disinhibited/aggressive behavior at any given moment. My recommendation will be that patient is placed in medication for impulse control. I will ask neurology if they can replace Keppra with Depakote, his Keppra can induce agitation and aggressive behavior in patient with high risk, while Depakote can prevent seizures and also aggressive behavior. Brief supportive psychotherapy, motivation provided. Case discussed with primary medical team. Consult appreciated. (2) Brain mass ICD Codes: G93.9 - Disorder of brain, unspecified Assessment & Plan Estimated LOS: Robert Hernandez MD Jan 21, 2018 14:52
[2018-01-21 16:21] VITALS: BP 117/56; PULSE 76; RESP 20; TEMP 97.9; O2SAT 96
--- NOTE | 2018-01-21 16:43 | HHI.PR ---
Subjective Remarks Follow up for brain mass, aggressive behavior. Patient is currently doing well. She remains coherent and cooperative. No aggressive behavior at all. Tolerating diet well. She again reiterated that she would like to undergo surgical intervention if recommended by neurosurgery. Objective Vitals Vital Signs Date Time Temp Pulse Resp B/P (MAP) Pulse Ox O2 Delivery O2 Flow Rate FiO2 01/21/18 16:21 97.9 76 20 117/56 (76) 96 01/21/18 12:00 97.6 83 20 159/79 (105) 93 01/21/18 08:07 97.7 75 20 172/84 (113) 95 01/21/18 04:50 98.2 60 16 120/80 (93) 97 01/21/18 00:00 98.0 65 18 122/76 (91) 96 01/20/18 21:00 98.5 64 17 128/68 (88) 95 I/O 01/20/18 01/20/18 01/20/18 01/21/18 01/21/18 01/21/18 07:00 15:00 23:00 07:00 15:00 23:00 Intake Total 650 ml 1000 ml 1380 ml Balance 650 ml 1000 ml 1380 ml Intake Oral 650 ml 1000 ml 1380 ml # Voids 1 4 # Bowel Movements 0 0 Result Diagram: 01/18/18 1334 01/18/18 1334 Objective Remarks GENERAL: Alert, NAD. Oriented x 3. SKIN: Warm and dry. HEAD: Normocephalic. EYES: No scleral icterus. No injection or drainage. NECK: Supple, trachea midline. No JVD or lymphadenopathy. CARDIOVASCULAR: Regular rate and rhythm without murmurs, gallops, or rubs. RESPIRATORY: Breath sounds equal bilaterally. No accessory muscle use. GASTROINTESTINAL: Abdomen soft, non-tender, nondistended. MUSCULOSKELETAL: No cyanosis, or edema. BACK: Nontender without obvious deformity. No CVA tenderness. Procedures None. A/P Problem List: (1) Brain mass ICD Code: G93.9 - Disorder of brain, unspecified Assessment and Plan Ms. Bruno is a 67 year old female with a history of known brain mass who was sent to the hospital under a court order to get evaluation for aggressive behavior. - Aggressive behavior - Left sided frontal lobe brain mass - During my evaluation today 01/20/2018, patient was very appropriate, coherent, no evidence of confusion. She is alert, oriented x 3. Has good insight to her disease process. She was also able to answer some simple math question. -On today's evaluation (01/21/2018 ) again, I DO believe patient has CAPACITY to make her own medical decision. I discussed with psychiatry who also agrees with this assessment. -I have discussed with neurosurgeon Dr. Herring -I requested him to evaluate patient for possible surgical intervention. Patient does not have any major medical conditions. She would benefit from surgical resection in my opinion. -Patient has capacity to to make medical decisions. I do not believe patient sister should dictate patient's medical care at this point. - Continue Decadron 4mg PO Q8hrs - Appreciate Neurosurgery input. - Continue Keppra - Hypertension - Continue Nifedipine 30mg Qday. Full code. Ambulation. Mahin Hernandez DO Jan 21, 2018 4:43 pm
[2018-01-21 20:00] VITALS: BP 119/56; PULSE 82; RESP 18; TEMP 97.8; O2SAT 96
--- NOTE | 2018-01-21 23:46 | HHI.NSPN ---
History Chief Complaint: no headache Interval History 67-year-old female with known frontal meningioma. Exam Results Vital Signs Date Time Temp Pulse Resp B/P (MAP) Pulse Ox O2 Delivery O2 Flow Rate FiO2 01/21/18 20:00 97.8 82 18 119/56 (77) 96 01/18/18 20:28 Room Air Intake and Output 01/21/18 01/21/18 01/22/18 08:00 16:00 00:00 Intake Total 1000 ml 1380 ml Balance 1000 ml 1380 ml Physical Examination Patient remains alert and awake. She seems to have a general idea regarding the tumor, although she is very about any effect that it may have on her function. Cranial nerves II through XII are fully tested and intact Sensation intact all extremities Moves all extremities well. Sitting up in chair Medical Decision Making Impression and Plan Impression: 1. Large frontal neoplasm noted on CT scan and previous MRI imaging. 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 Plan: Findings were discussed with the patient. She previously did not desire to proceed with surgery. She now seems amenable to surgical intervention at this time. We will need to discuss with her sister who apparently has power of civil rights attorney. She would like to proceed with surgical intervention during this hospitalization if possible. Tolu Herring MD Jan 21, 2018 23:46
[2018-01-22] VITALS: BP 159/78; PULSE 67; RESP 19; TEMP 97.3; O2SAT 95
[2018-01-22 04:00] VITALS: BP 153/74; PULSE 65; RESP 18; TEMP 97.4; O2SAT 95
[2018-01-22] MEDS: DEXAMETHASONE 4 MG TAB PO SCH ×3 (05:22→21:08)
[2018-01-22 08:00] VITALS: BP 153/75; PULSE 75; RESP 18; TEMP 97.7; O2SAT 97
[2018-01-22] MEDS: levETIRAcetam 500 MG TAB PO SCH ×2 (09:11→21:08)
[2018-01-22] MEDS: NIFEdipine 30 MG SUSTAINED RELEASE TAB PO SCH (09:11)
[2018-01-22] MEDS: PANTOPRAZOLE SOD 40 MG DELAYED RELEASE TAB PO SCH (09:11)
[2018-01-22] MEDS: INSULIN ASPART SUPPLEMENTAL SCALE SQ SCH ×4 (09:12→21:09)
--- NOTE | 2018-01-22 11:32 | HHI.HCPN ---
Reason for visit a. To assist with evaluation and management of symptoms including: Confusion , agitation b. To assist medical decision maker(s) with: better understanding of current medical conditions; weighing benefits/burdens of medical treatment options; making medical treatment decisions. Subjective/Interval History Patient seen to follow-up on symptom management and goals of care. Patient is seen this morning in her room, resting in bed without complaint. While she does have some minor difficulty searching for words, she is alert and oriented. I reviewed the prior days clinical course and medical opinions with her and informed her that per psychiatry and Dr. Hernandez that she is completely alert, oriented and able to make her own decisions. I also discussed this with Dr. Hernandez who states he had communicated with Dr. Herring this morning that the patient is capable of making her own decisions and does not need a proxy decision-maker. The patient states that she "wants to get better" and is willing to undergo the surgery. She does state that she was more comfortable with Dr. Dunbar as she had spent more time with him discussing her case and had established a relationship with him, but regardless does want the surgery. Vital signs remained stable. No new laboratory studies have been obtained since admission. . Family/friend interactions I was contacted by telephone by her sister to see if further decision-making was necessary and I informed the sister that the patient has been deemed competent by 2 physicians which meets the burden of the law so no further decision making is required of the sister at this time. The sister said that she would remain in the area providing care for her mother until her sister completes the surgery to make sure that her sister's care is managed in case of residual deficit. . Advance Directives Living Will: Never completed Health Care Surrogate: Never completed Durable Power of Calenderer: Never completed Advance Directive Specifics Health Care Surrogate(s): Never completed. Documented care wishes: Never completed. . Objective Vital Signs Date Time Temp Pulse Resp B/P (MAP) Pulse Ox O2 Delivery O2 Flow Rate FiO2 01/22/18 08:00 97.7 75 18 153/75 (101) 97 01/22/18 04:00 97.4 65 18 153/74 (100) 95 01/22/18 00:00 97.3 67 19 159/78 (105) 95 01/21/18 20:00 97.8 82 18 119/56 (77) 96 01/21/18 16:21 97.9 76 20 117/56 (76) 96 01/21/18 12:00 97.6 83 20 159/79 (105) 93 Intake & Output 01/22/18 01/22/18 07:00 19:00 # Voids 1 1 # Bowel Movements 1 0 Physical Exam CONSTITUTIONAL/GENERAL: This is an adequately nourished patient, in no apparent distress. TUBES/LINES/DRAINS: PIV NECK: Trachea midline. Supple, nontender. No palpable thyroid enlargement or nodularity. CARDIOVASCULAR: Regular rate and rhythm without murmurs, gallops, or rubs. No JVD. Peripheral pulses symmetric. RESPIRATORY/CHEST: Symmetric, unlabored respirations. Clear to auscultation. Breath sounds equal bilaterally. No wheezes, rales, or rhonchi. GASTROINTESTINAL: Abdomen soft, non-tender, nondistended. No hepato-splenomegaly , or palpable masses. No guarding. Bowel sounds present. GENITOURINARY: Without palpable bladder distension. MUSCULOSKELETAL: Extremities without clubbing, cyanosis, or edema. No joint tenderness or effusion noted. No calf tenderness. No mottling or clubbing. NEUROLOGICAL: Awake and alert. Motor and sensory grossly within normal limits. Follows commands. Answers questions appropriately. Moves all extremities. Slight difficulty finding a word but speech is fluent. PSYCHIATRIC: No obvious anxiety/depression. no apparent hallucinations or other psychotic thought process. . Diagnostic Tests Result Diagram: 01/18/18 1334 01/18/18 1334 Imaging Last Impressions Head CT 01/18/18 0000 Signed Impressions: Service Date/Time: Thursday, January 18, 2018 14:13 - CONCLUSION: 1. Extra-axial left frontal mass again seen with left to right midline shift. This likely related to meningioma. 2. The second extra-axial mass is partially seen more inferiorly. Tate Diez MD Assessment and Plan Disease Oriented Problem List: (1) Brain mass (2) Confusion (3) Agitation Symptom Scale: (1) Confusion 0-10 Scale: Unable to quantify (Confusion is intermittent. Oriented to person place purpose and time at this evaluation.) (2) Agitation 0-10 Scale: Unable to quantify (Intermittent. No agitation at this time..) Pertinent Non-Medical Issues Psychosocial:She was born in [place] and moved to [place] in the mid 80's. She was never and has no children. 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 Spiritual: Spiritual in her own way but not associated with any organized mu-ism. Legal: Pending psychiatry consultation to determine capacity to make decisions. Ethical issues impacting care: Admitted under ex parte court order. . Important Contacts Sister: Karla Keller DCF project manager retail, Chelsey Bourgeois . Prognosis Her prognosis is guarded. It is unknown whether her intermittent confusion is secondary to baseline dementia or brain masses. She has been brought in under court order twice in the last month, once under a [place] act, the second 1 under an ex parte order. She has 2 very large masses in her brain, thought to be meningiomas, and is awaiting evaluation by neurosurgery to determine whether surgery is appropriate and if so when it would be scheduled. With surgery, she is at risk for surgical complications and postoperative deficits, without surgery she is at risk for further complications and decline. . Code Status: Full Code Plan PLAN: Legal decision maker: At this time, psychiatry evaluation is pending to determine capacity. ED physician and neurosurgeon found her confused, Dr. Hernandez feels that she is capacitated at this time. Her sister, Karla, is available to serve as decision-maker if patient is not capacitated. Goals: Aggressive at this time. CODE STATUS: FULL CODE SYMPTOMS: * Confusion: She is currently oriented X 4 and able to grasp the ramifications of her current situation, but her confusion had been intermittent. Unknown whether this is related to a previously diagnosed baseline dementia or brain mass process. She has been seen by psychiatry and deemed competent by both psychiatry and her [facility] physician, Dr. Hernandez. Pending scheduling of surgery by neurosurgery. Discussed with ZAK Fabian. * Agitation: She is currently not agitated and resting quietly in bed, but was admitted via court order due to agitation and confusion at home. She does have some anxiety related to her understanding of the potential surgery and would likely benefit from an anxiolytic on an as-needed basis. Palliative care will continue to follow the patient during hospital course as condition evolves, to assist patient/decision-maker with understanding of their medical conditions, weighing benefits/burdens of treatment options, for clarification of goals of treatment. Additionally will assist with any symptoms of palliative concern. . Time Spent >50% Counseling/Coord of Care: No Attestation To help prompt me to consider important information that might be impacting today's encounter and assessment, information from prior notes written by myself or my colleagues may have been "brought forward" into today's note. My signature on this note, however, is an attestation that I personally performed the exam, history, and/or decision-making noted today, and, unless otherwise indicated, the interactions with patient, family, and staff as well as the review of records all occurred today. I also attest that the listed assessment and stated plan reflect my best clinical judgment today based on the combination of historical information, prior notes, and today's exam/ interactions. When time spent is documented, it refers only to time spent today by the signer, or if indicated, combined time spent today by collaborating physician/nurse practitioner. . Kassi Tang Jan 22, 2018 11:32
[2018-01-22 12:00] VITALS: BP 166/88; PULSE 92; RESP 18; TEMP 97.9; O2SAT 98
[2018-01-22] MEDS: cloNIDine HCL 0.1 MG TAB PO PRN (13:06)
[2018-01-22 16:00] VITALS: BP 114/57; PULSE 75; RESP 18; TEMP 98.1; O2SAT 96
[2018-01-22 20:20] VITALS: BP 119/56; PULSE 71; RESP 18; TEMP 98.1; O2SAT 94
[2018-01-22] MEDS: INSULIN DETEMIR 100 UNITS/ML VIAL SQ SCH (21:08)
--- NOTE | 2018-01-22 22:07 | HHI.PR ---
Subjective Remarks Follow up for brain mass, aggressive behavior. Patient is doing well. She again re-iterates her desire to live and undergo surgery as recommended by Neurosurgery. Patient remains coherent and pleasant. Objective Vitals Vital Signs Date Time Temp Pulse Resp B/P (MAP) Pulse Ox O2 Delivery O2 Flow Rate FiO2 01/22/18 20:20 98.1 71 18 119/56 (77) 94 01/22/18 16:00 98.1 75 18 114/57 (76) 96 01/22/18 12:00 97.9 92 18 166/88 (114) 98 01/22/18 08:00 97.7 75 18 153/75 (101) 97 01/22/18 04:00 97.4 65 18 153/74 (100) 95 01/22/18 00:00 97.3 67 19 159/78 (105) 95 I/O 01/21/18 01/21/18 01/21/18 01/22/18 01/22/18 01/22/18 07:00 15:00 23:00 07:00 15:00 23:00 Intake Total 1000 ml 1380 ml 480 ml Balance 1000 ml 1380 ml 480 ml Intake Oral 1000 ml 1380 ml 480 ml # Voids 4 1 3 # Bowel Movements 0 1 0 Result Diagram: 01/18/18 1334 01/18/18 1334 Objective Remarks GENERAL: Alert, NAD. Oriented x 3. SKIN: Warm and dry. HEAD: Normocephalic. EYES: No scleral icterus. No injection or drainage. NECK: Supple, trachea midline. No JVD or lymphadenopathy. CARDIOVASCULAR: Regular rate and rhythm without murmurs, gallops, or rubs. RESPIRATORY: Breath sounds equal bilaterally. No accessory muscle use. GASTROINTESTINAL: Abdomen soft, non-tender, nondistended. MUSCULOSKELETAL: No cyanosis, or edema. BACK: Nontender without obvious deformity. No CVA tenderness. Procedures None. A/P Problem List: (1) Brain mass ICD Code: G93.9 - Disorder of brain, unspecified Assessment and Plan Ms. Bruno is a 67 year old female with a history of known brain mass who was sent to the hospital under a court order to get evaluation for aggressive behavior. - Aggressive behavior - Left sided frontal lobe brain mass - During my evaluation today 01/20/2018, patient was very appropriate, coherent, no evidence of confusion. She is alert, oriented x 3. Has good insight to her disease process. She was also able to answer some simple math question. -On today's evaluation (01/21/2018 ) again, I DO believe patient has CAPACITY to make her own medical decision. I discussed with psychiatry who also agrees with this assessment. -I have discussed with neurosurgeon Dr. Herring -I requested him to evaluate patient for possible surgical intervention. Patient does not have any major medical conditions. She would benefit from surgical resection in my opinion. -Patient has capacity to to make medical decisions. I do not believe patient sister should dictate patient's medical care at this point. - I have again conveyed to Dr. Herring that patient should be able to make her own decision. Psychiatry and Palliative care team also concurs. - Continue Decadron 4mg PO Q8hrs - Appreciate Neurosurgery input. - Continue Keppra - Hyperglycemia - BG has been very high - in the 400 range. - Will start patient on long acting insulin Levemir 5 units QHS And continue sliding scale insulin. - We will also try to cut down Decadron dosage. - Hypertension - Continue Nifedipine 30mg Qday. Full code. Ambulation. Mahin Hernandez DO Jan 22, 2018 22:07
[2018-01-23 00:23] VITALS: BP 139/74; PULSE 64; RESP 18; TEMP 98.1; O2SAT 94
[2018-01-23 04:00] VITALS: BP 135/68; PULSE 64; RESP 18; TEMP 97.5; O2SAT 94
[2018-01-23] MEDS: INSULIN ASPART SUPPLEMENTAL SCALE SQ SCH ×4 (08:00→20:25)
[2018-01-23 08:13] VITALS: BP 125/62; PULSE 71; RESP 20; TEMP 97.7; O2SAT 93
[2018-01-23] MEDS: NIFEdipine 30 MG SUSTAINED RELEASE TAB PO SCH (08:29)
[2018-01-23] MEDS: levETIRAcetam 500 MG TAB PO SCH ×2 (08:29→20:23)
[2018-01-23] MEDS: PANTOPRAZOLE SOD 40 MG DELAYED RELEASE TAB PO SCH (08:30)
[2018-01-23] MEDS: DEXAMETHASONE 4 MG TAB PO SCH ×2 (08:30→20:23)
[2018-01-23 11:19] VITALS: BP 141/68; PULSE 82; RESP 20; TEMP 97.9; O2SAT 96
[2018-01-23 16:14] VITALS: BP 137/70; PULSE 83; RESP 20; TEMP 98.5; O2SAT 92
--- NOTE | 2018-01-23 17:33 | HHI.NSPN ---
([place] Njred ARREGUIN) History Chief Complaint: Right elbow pain (Js Nj KALLIE) Interval History 01/18: This is a 67-year-old female patient with history of a previous brain mass for which she underwent evaluation. She was brought today to the emergency room after court order because she became aggressive and hostile at home, the patient lives with her mother, who has Alzheimer disease. She has been fighting with her sister and now she is being brought for medical evaluation and psychiatric evaluation. The patient reports that she was previously seen because of a brain tumor and she still has not decided what to do with it. 01/19: Patient history of brain tumor. 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 01/23: The patient is in the bathroom when seen. She is assisted up from the commode and uses a walker to ambulate back to her bed where she sits on the edge of it. She denies any headache or dizziness. She does state that her vision is off but she is not able to describe it any further. She has pain to the right elbow from a fall, otherwise she has no pain to the extremities. She denies any numbness or tingling to the extremities. She does have some difficulty finding the correct word she wants to use. No sensorimotor deficits are noted. (Js NjEnedelia ARREGUNI) Exam Results 01/21/18 01/21/18 01/22/18 01/22/18 01/23/18 01/23/18 06:00 18:00 06:00 18:00 06:00 18:00 Intake Total 1650 ml 1380 ml 480 ml 720 ml Balance 1650 ml 1380 ml 480 ml 720 ml Intake Oral 1650 ml 1380 ml 480 ml 720 ml # Voids 5 1 3 2 2 # Bowel Movements 0 1 0 1 1 Vital Signs Date Time Temp Pulse Resp B/P (MAP) Pulse Ox O2 Delivery O2 Flow Rate FiO2 01/23/18 16:14 98.5 83 20 137/70 (92) 92 01/23/18 11:19 97.9 82 20 141/68 (92) 96 01/23/18 08:13 97.7 71 20 125/62 (83) 93 01/23/18 04:00 97.5 64 18 135/68 (90) 94 01/23/18 00:23 98.1 64 18 139/74 (95) 94 01/22/18 20:20 98.1 71 18 119/56 (77) 94 01/22/18 16:00 98.1 75 18 114/57 (76) 96 01/22/18 12:00 97.9 92 18 166/88 (114) 98 01/22/18 08:00 97.7 75 18 153/75 (101) 97 01/22/18 04:00 97.4 65 18 153/74 (100) 95 01/22/18 00:00 97.3 67 19 159/78 (105) 95 01/21/18 20:00 97.8 82 18 119/56 (77) 96 01/21/18 16:21 97.9 76 20 117/56 (76) 96 01/21/18 12:00 97.6 83 20 159/79 (105) 93 01/21/18 08:07 97.7 75 20 172/84 (113) 95 01/21/18 04:50 98.2 60 16 120/80 (93) 97 01/21/18 00:00 98.0 65 18 122/76 (91) 96 01/20/18 21:00 98.5 64 17 128/68 (88) 95 (Js Nj) Physical Examination GENERAL: Initially seen on commode and assisted up. Ambulates w/walker to bed and sits on edge. Affect essentially normal. No apparent distress. HEENT: Normocephalic, small abrasion to frontal scalp at hairline. PERRLA 2 mm, EOMI. MMM & pink, tongue midline to protrusion. MUSCULOSKELETAL: BECKMAN spontaneously & purposefully. Evolving ecchymosis to right elbow TTP. NEUROLOGICAL: AAOx3. Speech clear & appropriate although w/expressive aphasia. CN II through XII appear grossly intact. Sensation intact to light touch to all extremities. Muscle strength is 5/5 to all major flexion & extension muscle groups of the extremities. (Js Nj) Medical Decision Making Impression and Plan Impression: 1. Large frontal neoplasm noted on CT scan and previous MRI imaging. 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 Patient is doing well. Does have some expressive aphasia. No evident sensorimotor deficits. CT brain demonstrates an extra-axial left frontal mass w/left-to- right shift w/a second extra-axial mass partially seen inferiorly. Plan: Primary management per Hospitalist. MRI brain stealth. Plan to take the patient to OR on for resection of neoplasm. (Js Nj) Attending Statement The exam, history, and the medical decision-making described in the above note were completed with the assistance of the mid-level provider. I reviewed and agree with the findings presented. I attest that I had a [id number] encounter with the patient on the same day, and personally performed and documented my assessment and findings in the medical record. Discussed initial CT scan findings with the patient. Options of observation versus surgical intervention discussed. She would like to proceed with surgical intervention. The tentative procedure risks and possible complications discussed with the patient. She appears to have reasonable judgment and insight. Psychiatry notes reviewed. Patient feels competent to make her own decisions. She would like to proceed with surgery tentatively scheduled 01/25/18. Preoperative MRI pending. (Tolu Herring MD) Js Nj Jan 23, 2018 17:33 Tolu Herring MD Jan 24, 2018 19:07
--- NOTE | 2018-01-23 20:25 | HHI.PR ---
Subjective Remarks Follow up for brain mass. Patient is currently doing well. She has been very pleasant, cooperative. No acute concerns. She would like to undergo surgical resection of her brain mass. Objective Vitals Vital Signs Date Time Temp Pulse Resp B/P (MAP) Pulse Ox O2 Delivery O2 Flow Rate FiO2 01/23/18 16:14 98.5 83 20 137/70 (92) 92 01/23/18 11:19 97.9 82 20 141/68 (92) 96 01/23/18 08:13 97.7 71 20 125/62 (83) 93 01/23/18 04:00 97.5 64 18 135/68 (90) 94 01/23/18 00:23 98.1 64 18 139/74 (95) 94 I/O 01/22/18 01/22/18 01/22/18 01/23/18 01/23/18 01/23/18 06:59 14:59 22:59 06:59 14:59 22:59 Intake Total 480 ml 720 ml Balance 480 ml 720 ml Intake Oral 480 ml 720 ml # Voids 3 2 2 # Bowel Movements 0 1 1 Objective Remarks GENERAL: Alert, NAD. Oriented x 3. SKIN: Warm and dry. HEAD: Normocephalic. EYES: No scleral icterus. No injection or drainage. NECK: Supple, trachea midline. No JVD or lymphadenopathy. CARDIOVASCULAR: Regular rate and rhythm without murmurs, gallops, or rubs. RESPIRATORY: Breath sounds equal bilaterally. No accessory muscle use. GASTROINTESTINAL: Abdomen soft, non-tender, nondistended. MUSCULOSKELETAL: No cyanosis, or edema. BACK: Nontender without obvious deformity. No CVA tenderness. Procedures None. A/P Problem List: (1) Brain mass ICD Code: G93.9 - Disorder of brain, unspecified Assessment and Plan Ms. Bruno is a 67 year old female with a history of known brain mass who was sent to the hospital under a court order to get evaluation for aggressive behavior. - Aggressive behavior - Left sided frontal lobe brain mass - During my evaluation today 01/20/2018, patient was very appropriate, coherent, no evidence of confusion. She is alert, oriented x 3. Has good insight to her disease process. She was also able to answer some simple math question. -On today's evaluation (01/23/2018 ) again, I DO believe patient has CAPACITY to make her own medical decision. - Discussed with Neurosurgery, patient is scheduled for surgery on 2017. - Continue Decadron 4mg PO Q12hrs - Appreciate Neurosurgery input. - Continue Keppra - Hyperglycemia - BG is better controlled, in the range of 270's. Since Decadron was reduced , we will watch before increasing insulin. - Long acting insulin Levemir 5 units QHS And continue sliding scale insulin. - Hypertension - Continue Nifedipine 30mg Qday. Full code. Ambulation. Mahin Hernandez DO Jan 23, 2018 20:25
[2018-01-23] MEDS: INSULIN DETEMIR 100 UNITS/ML VIAL SQ SCH (20:26)
[2018-01-24] VITALS (7 sets, daily range): BP systolic 115–158; BP diastolic 65–76; PULSE 73–85; RESP 17–22; TEMP 97.1–98.4; O2SAT 93–95
[2018-01-24] MEDS: INSULIN ASPART SUPPLEMENTAL SCALE SQ SCH ×4 (08:00→21:15)
--- NOTE | 2018-01-24 08:37 | HHI.PR ---
Subjective Remarks Follow up for brain mass. Patient is currently doing well. No acute concerns. Patient is happy about planned surgery tomorrow. Objective Vitals Vital Signs Date Time Temp Pulse Resp B/P (MAP) Pulse Ox O2 Delivery O2 Flow Rate FiO2 01/24/18 04:20 97.5 77 20 132/75 (94) 94 01/24/18 00:25 97.1 73 18 142/69 (93) 95 01/24/18 00:00 97.7 84 18 146/65 (92) 94 01/23/18 16:14 98.5 83 20 137/70 (92) 92 01/23/18 11:19 97.9 82 20 141/68 (92) 96 I/O 01/23/18 01/23/18 01/23/18 01/24/18 01/24/18 01/24/18 07:00 15:00 23:00 07:00 15:00 23:00 Intake Total 720 ml Balance 720 ml Intake Oral 720 ml # Voids 2 2 2 # Bowel Movements 1 1 Objective Remarks GENERAL: Alert, NAD. Oriented x 3. SKIN: Warm and dry. HEAD: Normocephalic. EYES: No scleral icterus. No injection or drainage. NECK: Supple, trachea midline. No JVD or lymphadenopathy. CARDIOVASCULAR: Regular rate and rhythm without murmurs, gallops, or rubs. RESPIRATORY: Breath sounds equal bilaterally. No accessory muscle use. GASTROINTESTINAL: Abdomen soft, non-tender, nondistended. MUSCULOSKELETAL: No cyanosis, or edema. BACK: Nontender without obvious deformity. No CVA tenderness. Procedures None. A/P Problem List: (1) Brain mass ICD Code: G93.9 - Disorder of brain, unspecified Assessment and Plan Ms. Bruno is a 67 year old female with a history of known brain mass who was sent to the hospital under a court order to get evaluation for aggressive behavior. - Aggressive behavior - Left sided frontal lobe brain mass - During my evaluation today 01/20/2018, patient was very appropriate, coherent, no evidence of confusion. She is alert, oriented x 3. Has good insight to her disease process. She was also able to answer some simple math question. - Patient has CAPACITY to make her own medical decision. - Discussed with Neurosurgery, patient is scheduled for surgery on 2017. - Continue Decadron 4mg PO Q12hrs - Appreciate Neurosurgery input. - Continue Keppra - Hyperglycemia - BG is better controlled but still over 200. - Long acting insulin Levemir 5 units QHS And continue sliding scale insulin. - Hypertension - Continue Nifedipine 30mg Qday. Full code. Ambulation. Mahin Hernandez DO Jan 24, 2018 8:37 am
[2018-01-24] MEDS: PANTOPRAZOLE SOD 40 MG DELAYED RELEASE TAB PO SCH (08:49)
[2018-01-24] MEDS: DEXAMETHASONE 4 MG TAB PO SCH ×2 (08:49→21:13)
[2018-01-24] MEDS: levETIRAcetam 500 MG TAB PO SCH ×2 (08:49→21:13)
[2018-01-24] MEDS: NIFEdipine 30 MG SUSTAINED RELEASE TAB PO SCH (08:49)
[2018-01-24] MEDS ORDERED: GADODIAMIDE PF 287 MG/ML 20 ML VIAL (for RAD MRI) IVCONTRAST ONE (10:21)
--- NOTE | 2018-01-24 12:32 | HHI.NSPN ---
(Js Nj) History Chief Complaint: Right elbow pain (Js Nj) Interval History 01/18: This is a 67-year-old female patient with history of a previous brain mass for which she underwent evaluation. She was brought today to the emergency room after court order because she became aggressive and hostile at home, the patient lives with her mother, who has Alzheimer disease. She has been fighting with her sister and now she is being brought for medical evaluation and psychiatric evaluation. The patient reports that she was previously seen because of a brain tumor and she still has not decided what to do with it. 01/19: Patient history of brain tumor. 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 01/23: The patient is in the bathroom when seen. She is assisted up from the commode and uses a walker to ambulate back to her bed where she sits on the edge of it. She denies any headache or dizziness. She does state that her vision is off but she is not able to describe it any further. She has pain to the right elbow from a fall, otherwise she has no pain to the extremities. She denies any numbness or tingling to the extremities. She does have some difficulty finding the correct word she wants to use. No sensorimotor deficits are noted. 01/24: When seen this afternoon the patient is awake and alert talking with the Archeologist Classical. She does endorse a slight headache this morning but denies any dizziness, visual problems or nausea. She does have some right elbow and left foot pain. She also says that she hurt both knees. Otherwise she has no pain into the extremities and denies any numbness or tingling to them. There is no change in her neuro exam from yesterday. (Js Nj) Exam Results 01/22/18 01/22/18 01/23/18 01/23/18 01/24/18 01/24/18 06: 18:00 06:00 18:00 06:00 18:00 Intake Total 480 ml 720 ml Balance 480 ml 720 ml Intake Oral 480 ml 720 ml # Voids 1 3 2 2 2 # Bowel Movements 1 0 1 1 Vital Signs Date Time Temp Pulse Resp B/P (MAP) Pulse Ox O2 Delivery O2 Flow Rate FiO2 01/24/18 08:59 97.6 74 20 131/68 (89) 94 01/24/18 04:20 97.5 77 20 132/75 (94) 94 01/24/18 00:25 97.1 73 18 142/69 (93) 95 01/24/18 00:00 97.7 84 18 146/65 (92) 94 01/23/18 16:14 98.5 83 20 137/70 (92) 92 01/23/18 11:19 97.9 82 20 141/68 (92) 96 01/23/18 08:13 97.7 71 20 125/62 (83) 93 01/23/18 04:00 97.5 64 18 135/68 (90) 94 01/23/18 00:23 98.1 64 18 139/74 (95) 94 01/22/18 20:20 98.1 71 18 119/56 (77) 94 01/22/18 16:00 98.1 75 18 114/57 (76) 96 01/22/18 12:00 97.9 92 18 166/88 (114) 98 01/22/18 08:00 97.7 75 18 153/75 (101) 97 01/22/18 04:00 97.4 65 18 153/74 (100) 95 01/22/18 00:00 97.3 67 19 159/78 (105) 95 01/21/18 20:00 97.8 82 18 119/56 (77) 96 01/21/18 16:21 97.9 76 20 117/56 (76) 96 (Js Nj) Physical Examination GENERAL: Awake & alert in bed talking w/Senior Group Manager. Affect essentially normal. Readily interacts. No apparent distress. HEENT: Normocephalic, small abrasion to frontal scalp at hairline. PERRLA 2 mm, EOMI. MMM & pink, tongue midline to protrusion. MUSCULOSKELETAL: BECKMAN spontaneously & purposefully. Evolving ecchymosis to right elbow TTP. Evolving ecchymosis bilateral knees. Left foot mildly TTP. NEUROLOGICAL: AAOx3. Speech clear & appropriate although w/expressive aphasia. CN II through XII appear grossly intact. Sensation intact to light touch to all extremities. Muscle strength is 5/5 to all major flexion & extension muscle groups of the extremities. (Js Nj) Medical Decision Making Impression and Plan Impression: 1. Large frontal neoplasm noted on CT scan and previous MRI imaging. 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 Patient continues to do well. Still w/expressive aphasia. No change in sensorimotor exam. CT brain demonstrates an extra-axial left frontal mass w/left-to- right shift w/a second extra-axial mass partially seen inferiorly. MRI brain completed, Radiologist's report pending. Plan: Primary management per Hospitalist. Plan to take the patient to OR on for resection of neoplasm. (Js Nj) Attending Statement The exam, history, and the medical decision-making described in the above note were completed with the assistance of the mid-level provider. I reviewed and agree with the findings presented. I attest that I had a [id number] encounter with the patient on the same day, and personally performed and documented my assessment and findings in the medical record. The preoperative stereotactic MRI images reviewed with the patient. The study reveals a relatively large left mid frontal parafalcine lesion with [id number] midline shift. Significant mass effect. 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 Treatment options again discussed with the patient. She would like to proceed with surgery on 01/25/18. Procedure bifrontal craniotomy for resection of neoplasm is been discussed in detail Risks and possible complications fully discussed including risk of stroke, blindness, brain damage, speech or memory loss, pain and weakness numbness paralysis, spinal fluid leak, cosmetic defects, recurrent or residual neoplasm all fully discussed. She appears to understand all of the above and would like to proceed with surgery which is scheduled for 01/25/18. (Tolu Herring MD) Js Nj Jan 24, 2018 12:32 Tolu Herring MD Jan 24, 2018 19:09
--- NOTE | 2018-01-24 13:28 | RADRPT ---
EXAM DATE/TIME: 01/24/2018 10:18 [facility] COMPARISON: CT BRAIN W/O CONTRAST, January 18, 2018, 14:13. MRI BRAIN W & W/O CONTRAST, December 20, 2017, 15:36. INDICATIONS : Mass. CONTRAST: 18 cc Omniscan (gadodiamide) IV MEDICAL HISTORY : Hypertension. Renal failure, chronic. SURGICAL HISTORY : Breast reduction. ENCOUNTER: Initial ACUITY: 4-6 months PAIN SCORE: 0/10 LOCATION: Head. TECHNIQUE: An MRI brain stealth procedure was performed. The information will be used in the OR for localizatio n. FINDINGS: Stealth MRI brain was performed. There is a large enhancing mass in the upper left frontal lobe. The mass measures approximately 6.0 cm in AP dimension by 3.9 cm x 3.9 cm. There is also dural enhancemen t along the base of the skull anterior midline. These findings correlate with the MRI from 12/20/2017. CONCLUSION: Large enhancing mass in the upper left frontal lobe as well as dural enhancement along the base of th e skull anterior midline. Vern Boo MD on January 24, 2018 at 13:22 Board Certified Radiologist. This report was verified electronically.
--- NOTE | 2018-01-24 14:20 | HHI.HCPN ---
Reason for visit a. To assist with evaluation and management of symptoms including: Confusion , agitation b. To assist medical decision maker(s) with: better understanding of current medical conditions; weighing benefits/burdens of medical treatment options; making medical treatment decisions. Subjective/Interval History Patient seen to follow-up on symptom management and goals of care. Patient is seen this morning in her room, resting in bed without complaint. While she does have some minor difficulty searching for words, she is alert and oriented. She underwent stealth MRI yesterday confirming a large enhancing mass in the upper left frontal lobe measuring 6 cm in AP dimension by 3.9 cm x 3.9 cm with dural enhancement along the base of the skull anterior midline these findings correlated with the MRI from 12/20/2017. Neurosurgery is planned for 01/25. No new laboratory studies have been ordered. The patient questioned whether her sister, Karla was involved in her care and I did explain to her that she was now considered capable of making her own decisions so her sister is not being contacted for decisions. She states she does not wish to have her sister involved in her decision-making. I did offer her the opportunity to fill out a healthcare surrogate form, however she states that she has no other family able to be her decision maker, as her mother has severe dementia, she was never , has no children and no other family or friends that could act as her decision-maker. She was provided with a 5 wishes booklet to delineate her wishes to be followed in case of her incapacitation. . Family/friend interactions No family is at bedside today. . Advance Directives Living Will: Never completed Health Care Surrogate: Never completed Durable Power of Freelance Interpreter/Translator: Never completed Advance Directive Specifics Health Care Surrogate(s): Never completed. Documented care wishes: Never completed. . Objective Vital Signs Date Time Temp Pulse Resp B/P (MAP) Pulse Ox O2 Delivery O2 Flow Rate FiO2 01/24/18 12:00 97.6 75 22 158/76 (103) 94 01/24/18 08:59 97.6 74 20 131/68 (89) 94 01/24/18 04:20 97.5 77 20 132/75 (94) 94 01/24/18 00:25 97.1 73 18 142/69 (93) 95 01/24/18 00:00 97.7 84 18 146/65 (92) 94 01/23/18 16:14 98.5 83 20 137/70 (92) 92 Intake & Output 01/24/18 01/24/18 07:00 19:00 # Voids 2 Physical Exam CONSTITUTIONAL/GENERAL: This is an adequately nourished patient, in no apparent distress. TUBES/LINES/DRAINS: PIV NECK: Trachea midline. Supple, nontender. No palpable thyroid enlargement or nodularity. CARDIOVASCULAR: Regular rate and rhythm without murmurs, gallops, or rubs. No JVD. Peripheral pulses symmetric. RESPIRATORY/CHEST: Symmetric, unlabored respirations. Clear to auscultation. Breath sounds equal bilaterally. No wheezes, rales, or rhonchi. GASTROINTESTINAL: Abdomen soft, non-tender, nondistended. No hepato-splenomegaly , or palpable masses. No guarding. Bowel sounds present. GENITOURINARY: Without palpable bladder distension. MUSCULOSKELETAL: Extremities without clubbing, cyanosis, or edema. No joint tenderness or effusion noted. No calf tenderness. No mottling or clubbing. NEUROLOGICAL: Awake and alert. Motor and sensory grossly within normal limits. Follows commands. Answers questions appropriately. Moves all extremities. Slight difficulty finding a word but speech is fluent. PSYCHIATRIC: Mild anxiety relating to upcoming surgery. no apparent hallucinations or other psychotic thought process. . Diagnostic Tests Imaging Last Impressions Brain MRI 01/24/18 0000 Signed Impressions: Service Date/Time: December 10:18 - CONCLUSION: Large enhancing mass in the upper left frontal lobe as well as dural enhancement along the base of the skull anterior midline. Vren Boo MD Head CT 01/18/18 0000 Signed Impressions: Service Date/Time: Thursday, January 18, 2018 14:13 - CONCLUSION: 1. Extra-axial left frontal mass again seen with left to right midline shift. This likely related to meningioma. 2. The second extra-axial mass is partially seen more inferiorly. Tate Diez MD Assessment and Plan Disease Oriented Problem List: (1) Brain mass (2) Confusion (3) Agitation Symptom Scale: (1) Confusion 0-10 Scale: Unable to quantify (Confusion is intermittent. Oriented to person place purpose and time at this evaluation.) (2) Agitation 0-10 Scale: Unable to quantify (Intermittent. No agitation at this time..) Pertinent Non-Medical Issues Psychosocial:She was born in [place] and moved to [place] in the mid 80's. She was never and has no children. 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 Spiritual: Spiritual in her own way but not associated with any organized jehovah's witness. Legal: Pending psychiatry consultation to determine capacity to make decisions. Ethical issues impacting care: Admitted under ex parte court order. . Important Contacts Sister: Karla Keller DCF gun striper, Chelsey Bourgeois . Prognosis Her prognosis is guarded. It is unknown whether her intermittent confusion is secondary to baseline dementia or brain masses. She has been brought in under court order twice in the last month, once under a [place] act, the second 1 under an ex parte order. She has 2 very large masses in her brain, thought to be meningiomas, and is awaiting evaluation by neurosurgery to determine whether surgery is appropriate and if so when it would be scheduled. With surgery, she is at risk for surgical complications and postoperative deficits, without surgery she is at risk for further complications and decline. . Code Status: Full Code Plan PLAN: Legal decision maker: At this time, psychiatry has determined that she has capacity to make her own decisions, confirmed by Dr. Hernandez. Goals: Aggressive at this time. CODE STATUS: FULL CODE SYMPTOMS: * Confusion: She is currently oriented X 4 and able to grasp the ramifications of her current situation, but her confusion had been intermittent. Unknown whether this is related to a previously diagnosed baseline dementia or brain mass process. She has been seen by psychiatry and deemed competent by both psychiatry and her [facility] physician, Dr. Hernandez. Surgery scheduled for 01/25. * Agitation: She is currently not agitated and resting quietly in bed, but was admitted via court order due to agitation and confusion at home. She does have some anxiety related to her understanding of the potential surgery and may benefit from an anxiolytic on an as-needed basis. Palliative care will continue to follow the patient during hospital course as condition evolves, to assist patient/decision-maker with understanding of their medical conditions, weighing benefits/burdens of treatment options, for clarification of goals of treatment. Additionally will assist with any symptoms of palliative concern. . Attestation To help prompt me to consider important information that might be impacting today's encounter and assessment, information from prior notes written by myself or my colleagues may have been "brought forward" into today's note. My signature on this note, however, is an attestation that I personally performed the exam, history, and/or decision-making noted today, and, unless otherwise indicated, the interactions with patient, family, and staff as well as the review of records all occurred today. I also attest that the listed assessment and stated plan reflect my best clinical judgment today based on the combination of historical information, prior notes, and today's exam/ interactions. When time spent is documented, it refers only to time spent today by the signer, or if indicated, combined time spent today by collaborating physician/nurse practitioner. . Kassi Tang Jan 24, 2018 14:20
[2018-01-24] MEDS: INSULIN DETEMIR 100 UNITS/ML VIAL SQ SCH (21:16)
[2018-01-24 22:02] LABS: AUTOMATED NEUTROPHIL # 13.9 TH/MM3 (1.8-7.7); EOSINOPHIL # 0.2 TH/MM3 (0-0.4); EOSINOPHIL % 1.1 % (0.0-4.0); HEMATOCRIT 44.6 % (35.0-46.0); HEMOGLOBIN 15.2 GM/DL (11.6-15.3); LYMPH % 3.7 % (9.0-44.0); LYMPHOCYTE # 0.6 TH/MM3 (1.0-4.8); MEAN CELL VOLUME 86.6 FL (80.0-100.0); MEAN CORPUSCULAR HEMOGLOBIN 29.4 PG (27.0-34.0); MEAN PLATELET VOLUME 7.2 FL (7.0-11.0); MONO % 4.6 % (0.0-8.0); MONOCYTE # 0.7 TH/MM3 (0-0.9); NEUT % 90.6 % (16.0-70.0); PLATELET COUNT 214 TH/MM3 (150-450); RED BLOOD COUNT 5.15 MIL/MM3 (4.00-5.30); RED CELL DISTRIBUTION WIDTH 13.5 % (11.6-17.2); WHITE BLOOD COUNT 15.3 TH/MM3 (4.0-11.0)
[2018-01-24 22:16] LABS: BICARBONATE 24.2 MEQ/L (21.0-32.0); CALCIUM 9.4 MG/DL (8.5-10.1); CREATININE 0.99 MG/DL (0.50-1.00)
[2018-01-24 22:18] LABS: INTERNATIONAL NORMALIZED RATIO 1.1 RATIO; PROTHROMBIN TIME - PATIENT 10.8 SEC (9.8-11.6)
[2018-01-25 00:52] VITALS: BP 142/89; PULSE 72; RESP 17; TEMP 97.5; O2SAT 96
[2018-01-25 04:52] VITALS: BP 141/67; PULSE 69; RESP 17; TEMP 97.7; O2SAT 96
[2018-01-25] MEDS: INSULIN ASPART SUPPLEMENTAL SCALE SQ SCH ×2 (07:29→21:06)
[2018-01-25] MEDS: PANTOPRAZOLE SOD 40 MG DELAYED RELEASE TAB PO SCH (07:30)
[2018-01-25] MEDS: NIFEdipine 30 MG SUSTAINED RELEASE TAB PO SCH (07:30)
[2018-01-25] MEDS: DEXAMETHASONE 4 MG TAB PO SCH ×2 (07:30→20:28)
[2018-01-25] MEDS: levETIRAcetam 500 MG TAB PO SCH ×2 (07:30→20:28)
[2018-01-25] MEDS ORDERED: SUFentanil INJ 250 MCG/5 ML AMP ONE (07:44)
[2018-01-25] MEDS ORDERED: FUROSEMIDE 20 MG/2 ML VIAL ONE ×2 (07:44→17:18)
[2018-01-25] MEDS ORDERED: ARTIFICIAL TEARS OPTH OINT 3.5 APPLIC/3.5 GM TUBO ONE (07:44)
[2018-01-25] MEDS ORDERED: GELFOAM SIZE 100 ONE ×3 (07:50→17:21)
[2018-01-25] MEDS ORDERED: THROMBIN (TOPICAL) 5,000 UNIT VIAL ONE ×3 (07:50→17:20)
[2018-01-25] MEDS ORDERED: LIDOCAINE 1%/EPINEPHrine 1:100,000 SOLN 30 ML VIAL ONE ×2 (07:50→17:20)
[2018-01-25] MEDS ORDERED: ceFAZolin INJ 1,000 MG VIAL ONE (07:51)
[2018-01-25] MEDS ORDERED: GENTAMICIN SULFATE 80 MG/2 ML VIAL ONE ×2 (08:01→17:30)
[2018-01-25] MEDS ORDERED: INSULIN HUMAN REGULAR 1,000 UNITS/10 ML VIAL ONE ×2 (08:24→11:12)
[2018-01-25] MEDS ORDERED: PROPOFOL 200 MG/20 ML AMP IV ONE (12:00)
[2018-01-25] MEDS ORDERED: ONDANSETRON HCL 4 MG/2 ML VIAL IV ONE (12:00)
[2018-01-25] MEDS ORDERED: ROCURONIUM INJ 50 MG/5 ML SYRINGE IV PUSH ONE (12:00)
[2018-01-25] MEDS ORDERED: LACTATED RINGER'S 1000 ML INJ 2,000 ML IV ONE (12:00)
[2018-01-25] MEDS ORDERED: VECURONIUM BROMIDE 20 MG VIAL IV ONE (12:00)
[2018-01-25] MEDS ORDERED: LIDOCAINE HCL 1% PF 5 ML SYRINGE OTHER ONE (12:00)
[2018-01-25] MEDS ORDERED: ceFAZolin INJ 1,000 MG VIAL IV ONE ×2 (12:00→13:27)
[2018-01-25] MEDS ORDERED: ePHEDrine/NS 25 MG/5 ML SYRINGE IV ONE (12:00)
[2018-01-25] MEDS ORDERED: ESMOLOL HCL 100 MG/10 ML VIAL IV ONE (12:00)
[2018-01-25] MEDS ORDERED: NEOSTIGMINE 5 MG/5 ML SYRINGE IV PUSH ONE (12:00)
[2018-01-25] MEDS ORDERED: SODIUM CHLOR 0.9% 250 ML INJ 500 ML IV ONE (12:00)
[2018-01-25] MEDS ORDERED: SODIUM CHLORID 0.9% 500 ML INJ 500 ML IV ONE (12:00)
[2018-01-25] MEDS ORDERED: SODIUM CHLORIDE 0.9% 10 ML VIAL IV ONE (12:00)
[2018-01-25] MEDS ORDERED: GLYCOPYRROLATE 1 MG/5 ML SYRINGE IV PUSH ONE (12:00)
[2018-01-25] MEDS ORDERED: DEXAMETHASONE SOD PHOS 4 MG/ML VIAL IV ONE (12:00)
[2018-01-25] MEDS ORDERED: PHENYLEPHRINE HCL 10 MG/ML VIAL IV ONE (12:00)
[2018-01-25] MEDS ORDERED: NORMOSOL R INJ 3,000 ML IV ONE (12:00)
[2018-01-25] MEDS ORDERED: PHENYLEPH/NS 1000 MCG/10 ML SYR IV ONE (12:00)
[2018-01-25] MEDS ORDERED: ACETAMINOPHEN 1000 MG/100 ML 100 ML IV ONE (12:37)
[2018-01-25] MEDS ORDERED: HYDROmorphone HCL PF 2 MG/ML VIAL ONE (16:23)
[2018-01-25] MEDS ORDERED: DEXMEDETOMIDINE HCL 200 MCG/2 ML VIAL ONE (16:24)
[2018-01-25] MEDS ORDERED: DEXAMETHASONE SOD PHOS PF 10 MG/ML VIAL ONE (17:19)
[2018-01-25] MEDS: NS + KCL 20 MEQ INJ 1,000 ML IV SCH (17:30)
[2018-01-25] MEDS ORDERED: VECURONIUM BROMIDE 20 MG VIAL ONE (18:12)
--- NOTE | 2018-01-25 18:25 | RADRPT ---
EXAM DATE/TIME: 01/25/2018 17:59 [facility] COMPARISON: CT BRAIN W/O CONTRAST, January 18, 2018, 14:13. INDICATIONS : Post op craniotomy. Tumor resection. RADIATION DOSE: 62.21 CTDIvol (mGy) ; Tabletop CT Head MEDICAL HISTORY : Non-responsive. SURGICAL HISTORY : Non-responsive. ENCOUNTER: Initial ACUITY: 1 day PAIN SCALE: Non-responsive LOCATION: cranial TECHNIQUE: Multiple contiguous axial images were obtained of the head. Using automated exposure control and adj ustment of the mA and/or kV according to patient size, radiation dose was kept as low as reasonably a chievable to obtain optimal diagnostic quality images. DICOM format image data is available electro nically for review and comparison. FINDINGS: CEREBRUM: The patient is status post frontal craniotomy. There is a surgical drain in place. There is postsurgi venice change with hemorrhage and edema seen in the anterior medial left frontal lobe in the region of t he previous seen mass. There continues to be some mass effect on the anterior aspect of the lateral v entricles especially on the left. There is 4-5 mm of left to right midline shift. There is mild subdu ral hemorrhage and air seen anteriorly. There is subarachnoid hemorrhage seen at the left temporal r egion. There is a suspected area of parenchymal hemorrhage in the posterior left temporal lobe measur ing approximately 1.8 cm in diameter. There is minimal subarachnoid hemorrhage in the right parietal lobe. There is effacement of the cortical sulci and near total effacement of the basal cisterns. POSTERIOR FOSSA: The cerebellum and brainstem are intact. The 4th ventricle is midline. The cerebellopontine angle i s unremarkable. EXTRACRANIAL: The visualized portion of the orbits is intact. SKULL: The patient is status post frontal craniotomy. CONCLUSION: Status post frontal craniotomy with postsurgical change in the medial left frontal lobe in the region of previous seen mass. There is mild subdural air and hemorrhage seen in the frontal regions. There is subarachnoid hemorrhage seen in the left temporal lobe and to a lesser degree right parietal lobe. There is a focal 1.8 cm parenchymal hemorrhage seen in the posterior left temporal lobe. The basal cisterns are very narrowed. The cortical sulci are effaced. Much of the mass effect was pre sent previously. Tommie Trujillo MD on January 25, 2018 at 18:17 Board Certified Radiologist. This report was verified electronically.
[2018-01-25] MEDS ORDERED: IOHEXOL 350 MG/ML 10 ML VIAL (for RAD DIAG) IVCONTRAST ONE (18:28)
--- NOTE | 2018-01-25 18:28 | PD.OP ---
Operative Report Date of Surgery: Jan 25, 2018 Preoperative Diagnosis: (1) Meningioma, multiple (2) Parasagittal meningioma 1. Recurrent left parafalcine meningioma 2. Bilateral cribriform plate-planum sphenoidale meningioma Postoperative Diagnosis: (1) Meningioma, multiple (2) Parasagittal meningioma 1. Recurrent left parafalcine meningioma 2. Bilateral cribriform plate-planum sphenoidale meningioma Procedure: Bifrontal craniotomy for resection 1. Left parafalcine meningioma 2. Bilateral cribriform plate -Planum sphenoidale meningioma 3. Use of frameless intraoperative stereotactic navigation for planning of the incision site and bone flap and resection of the parafalcine and frontal skull base neoplasm. Anesthesia: General Surgeon: Tolu Herring Paper Machine Backtender(s): Jade Edge Operation and Findings: Findings: Soft, friable, moderately vascular neoplasm consistent with meningioma. Large left parafalcine lesion with midline shift. Moderate neoplasm extending from the cribriform plate to the planum sphenoidale abutting the optic chiasm and the medial aspect of the right optic nerve and surrounding the anteromedial aspect of the left optic nerve Procedure in detail: The patient was brought into the operating room and general endotracheal anesthesia induced without difficulty. Lines were established by anesthesia JORGITO hose and sequential compression devices were in place Hills catheter was in place Appropriate timeout procedure was performed with all personal present and in agreement The patient was positioned in supine position with all extremities appropriately padded. The head was placed on the horseshoe head rest The head was placed in the 3-point fixation device and secured to the operating room table with the neck slightly flexed and the head mildly rotated. The BrainLab system was registered with the laser facial registration system and landmarks verified. The BrainLab system was used to darrel the initial scalp flap and craniotomy opening, and was further used extensively during the procedure to guide the resection of the neoplasm. The hair overlying the scalp incision was shaved with clippers, and the operative site was sterilely prepped and draped. 1% Xylocaine with epinephrine was used for local infiltration over the incision site which was made in a curvilinear fashion over the previous incision extending along the bilateral frontotemporal region at the hairline and carried sharply down to the cranium. The scalp flap was elevated with the periosteal elevator and retracted with large scalp hooks. A small temporalis muscle and fascia incision was made at the bilateral frontozygomatic fossa and a darien hole placed at site. The stem mounter was used to place an additional bur hole at the midline posterior frontal region, and the craniotome was used to incise the bone flap. The dura was extremely thin through most of the frontal region, presumably at least in part related to previous surgical procedure. 4-0 Nurolon dural tack up sutures placed through wire passing holes made along the edge of the craniotomy site were used as needed. There was moderate brain edema noted upon opening the dura. Patient was given Decadron during the procedure as needed. The neoplasm was seen extending to the surface at the medial left frontal region with lateral displacement of the inferior medial aspect of the left frontal lobe. A tissue plane between the neoplasm in the frontal brain parenchyma was readily delineated with the bipolar forceps and the [place] dissectors. The neoplasm was circumferentially from the surrounding tissue with the [place] dissectors and the bipolar forceps with any bridging vessels coagulated with the bipolar forceps and incised with the microscissors. Any major vascular structures were carefully preserved. Cottonoid patties were used as needed to maintain the resection plane surrounding the tumor. Bleeding was carefully controlled with temporary application of Gelfoam and thrombin, the bipolar forceps, followed by application of Surgicel. Once the periphery of the tumor was delineated, the central portion was gradually debulked using the tissue biopsy forceps and the suction with bleeding controlled with bipolar forceps. The periphery of the tumor was then removed. Great care was taken to preserve any of the vascular structures surrounding the neoplasm. A gross total resection of the lesion was achieved. Next, the second neoplasm which was distinct from the initial lesion at the cribriform plate extending to bilateral planum sphenoidale was addressed. The Simmons retractor with Cottonoid patties was used to gently elevate the frontal lobe away from the neoplasm. The anterior and lateral borders of the neoplasm were exposed and the anterior aspect of the neoplasm resected with the bipolar forceps and gentle suction. The the posterior central aspect of the neoplasm was then removed with the suction and bipolar forceps. Then circumferentially the posterior borders of the neoplasm were detached from the surrounding structures and the optic chiasm and bilateral optic nerve exposed. Using the [place] dissectors and the micro-suction and bipolar forceps the residual posterior aspect of the neoplasm was freed from the optic nerve and optic chiasm and the anterior aspect of the diaphragma sella. The right side of the neoplasm extended along the dorsomedial inferior aspect of the right optic nerve. However a clean resection plane was obtained and there did not appear to be any injury to the optic nerves. The tumor resection site was carefully examined and bleeding carefully controlled. There was no significant bleeding at the time of closure. The brain was soft and pulsatile at the time of closure The closure was performed with 4-0 Nurolon to secure a piece of Durepair through holes made with the wire passing drill along the edges of the craniotomy site, titanium maxillofacial plates and screws to secure the bone flap, 4-0 Nurolon dural tack up sutures through holes made in the bone flap with the prior passing drill, and 2-0 Vicryl for the galeal closure,[place] for the skin closure. A 7 mm flat fluted drain was left in place and the epidural and subgaleal space , brought out through a small incision at the left posterior frontal region and secured to the skin with nylon suture. A dressing of sterile Telfa, 4 x 4's, and a head stockinette were placed. The 3-point head fixation device was removed The patient was taken to CT scan postoperatively, since a moderate amount of hematoma was noted to come forth from the drain site which persisted for 10-15 minutes after the incision was closed. All counts were correct at the end of the case Estimated blood loss was 700 cc. Specimen of the neoplasm 2 was sent to pathology for permanent section Tolu Herring MD Jan 25, 2018 18:28
[2018-01-25] MEDS ORDERED: PROPOFOL 500 MG/50 ML INJ 50 ML ONE (18:48)
--- NOTE | 2018-01-25 18:57 | RADRPT ---
EXAM DATE/TIME: 01/25/2018 17:59 [facility] COMPARISON: MRA BRAIN W/O CONTRAST, December 20, 2017, 15:36. MRI BRAIN STEALTH W CONTRAST, January 24, 2018, 10: 18. INDICATIONS : Post op craniotomy. Evaluate for stroke. IV CONTRAST: 70 cc Omnipaque 350 (iohexol) IV RADIATION DOSE: 60.65 CTDIvol (mGy) MEDICAL HISTORY : Non-responsive. SURGICAL HISTORY : Non-responsive. ENCOUNTER: Initial ACUITY: 1 day PAIN SCALE: Non-responsive LOCATION: cranial TECHNIQUE: Volumetric scanning was performed using a multi-row detector CT scanner. The data was post processed with a variety of visualization algorithms including full volume maximum intensity projection, multi -planar sliding thin slab reformation, curved planar reformation, and surface rendering techniques. Using automated exposure control and adjustment of the mA and/or kV according to patient size, radiat ion dose was kept as low as reasonably achievable to obtain optimal diagnostic quality images. DICO M format image data is available electronically for review and comparison. FINDINGS: The [place] of [place] vessels are stable and intact. Note is made of an azygos configuration of the an terior cerebral artery with some rightward deviation associated with a previous mass. No evidence of major vessel occlusion or stenosis. No aneurysm or vascular malformation is identified. The posterior circulation vessels are stable and unremarkable. CONCLUSION: No acute vascular findings Tommie Solis MD on January 25, 2018 at 18:51 Board Certified Radiologist. This report was verified electronically.
[2018-01-25 19:02] VITALS: O2SAT 97
[2018-01-25] MEDS ORDERED: NALOXONE HCL 0.4 MG/ML AMP ONE (19:04)
[2018-01-25] MEDS ORDERED: LABETALOL HCL 100 MG/20 ML VIAL IV PUSH PRN (19:15)
[2018-01-25] MEDS ORDERED: PHENYLEPHRINE INJ 40 MG in DEXTROSE 5% IN WATE 500 ML INJ 496 ML IV PRN ×2 (19:15)
[2018-01-25] MEDS ORDERED: TERBUTALINE INJ 1 MG/ML AMP SQ PRN (19:15)
--- NOTE | 2018-01-25 19:43 | PD.CONS ---
HPI Service Critical Care Medicine Consult Requested By Primary Care Physician Allan Riley MD History of Present Illness 67-year-old female patient with history of a previous brain mass for which she underwent evaluation. She was after court order because she became aggressive and hostile at home. The patient lives with her mother, who has Alzheimer disease. The CT of the head performed in the emergency department showed an Extra-axial left frontal mass again seen with left to right midline shift, likely related to meningioma. She has undergone another tumor resection by Dr. Herring today. The patient remains postprocedure intubated, also the repeated postoperative CAT scan of the head show significant amount of brain edema. Review of Systems ROS Unobtainable patient sedated and intubated Past Family Social History Allergies: Coded Allergies: No Allergy Information Available (Unverified , 01/18/18) DEMENTIA Past Medical History Unobtainable Past Surgical History Unobtainable Reported Medications Reported Meds & Active Scripts Active Dexamethasone 4 Mg Tab 4 Mg PO Q8HR Pantoprazole (Pantoprazole Sodium) 40 Mg Tab 40 Mg PO DAILY Keppra (Levetiracetam) 500 Mg Tab 500 Mg PO Q12HR Nifedipine ER 24 HR (Nifedipine) 30 Mg Tab 30 Mg PO DAILY Active Ordered Medications Current Medications Medications (Trade) Dose Ordered Sig/Yancy Route PRN Reason Start Time Stop Time Status Last Admin Dose Admin Levetriacetam (Keppra) 500 mg Q12HR PO 01/18/18 21:00 01/25/18 20:28 Nifedipine (Procardia Xl) 30 mg DAILY PO 01/19/18 09:00 01/24/18 08:49 Pantoprazole Sodium (Protonix) 40 mg DAILY PO 01/19/18 09:00 01/24/18 08:49 Clonidine (Catapres) 0.1 mg Q6H PRN PO bp>160/90 01/18/18 19:30 01/22/18 13:06 Insulin Aspart (NovoLOG SUPPLEMENTAL SCALE) 1 ACHS SLIDING SCALE SQ 01/18/18 21:00 01/25/18 21:06 Glucagon (Glucagon Inj) 1 mg UNSCH PRN OTHER HYPOGLYCEMIA-SEE COMMENTS 01/18/18 19:30 Dextrose (D50w (Vial) Inj) 50 ml UNSCH PRN IV PUSH HYPOGLYCEMIA-SEE COMMENTS 01/18/18 19:30 Insulin Detemir (Levemir Inj) 5 units HS SQ 01/22/18 21:00 01/25/18 21:07 Dexamethasone (Decadron) 4 mg Q12H PO 01/23/18 09:00 01/25/18 20:28 Potassium Chloride/Sodium Chloride 1,000 ml @ 100 mls/hr Q10H IV 01/25/18 17:30 Nicardipine HCl 25 mg/Sodium Chloride 260 ml @ 52 mls/hr TITRATE PRN IV Blood pressure management 01/25/18 19:15 Phenylephrine HCl 40 mg/Dextrose 500 ml @ 30 mls/hr TITRATE PRN IV Blood pressure management 01/25/18 19:15 Terbutaline Sulfate (Brethine Inj) 1 mg UNSCH PRN SQ For Extravasation 01/25/18 19:15 Labetalol HCl (Trandate Inj) 10 mg Q20M PRN IV PUSH SYS BP GREATER THAN 140 MMHG 01/25/18 19:15 Sodium Chloride 500 ml @ 20 mls/hr UNSCH PRN IV Electrolyte Replacement 01/25/18 19:45 01/30/18 19:44 01/25/18 20:29 Chlorhexidine Gluconate (Peridex 0.12% Liq) 15 ml BID@08,20 MT 01/25/18 20:00 01/25/18 20:42 Propofol 100 ml @ 2.709 mls/ hr TITRATE PRN IV SEDATION 01/25/18 20:00 01/25/18 20:29 Sodium Chloride 1,000 ml @ 84 mls/hr [id number] IV 01/25/18 20:00 01/25/18 20:41 Morphine Sulfate (Morphine Inj) 2 mg Q3H PRN IM pain 6-08/0701/25/18 20:00 Acetaminophen (Tylenol) 650 mg Q4H PRN PO fever or pain 1-501/25/18 20:00 Family History Unobtainable Social History Unobtainable Physical Exam Vital Signs Vital Signs Date Time Temp Pulse Resp B/P (MAP) Pulse Ox O2 Delivery O2 Flow Rate FiO2 01/25/18 19:02 97 50 01/25/18 04:52 97.7 69 17 141/67 (91) 96 01/25/18 00:52 97.5 72 17 142/89 (106) 96 01/24/18 21:03 98.4 85 17 115/65 82 94 Physical Exam GENERAL: Sedated and intubated female SKIN: Warm and dry. HEAD: Post craniectomy EYES: No scleral icterus. No injection or drainage. NECK: Supple, trachea midline. No JVD or lymphadenopathy. CARDIOVASCULAR: Regular rate and rhythm without murmurs, gallops, or rubs. RESPIRATORY: Breath sounds equal bilaterally. No accessory muscle use. GASTROINTESTINAL: Abdomen soft, non-tender, nondistended. MUSCULOSKELETAL: No cyanosis, or edema. BACK: Nontender without obvious deformity. NEURO EXAM: GCS: 3T Mental Status: The patient is sedated and intubated. Heavily sedated Laboratory Laboratory Tests Test 01/24/18 21:35 01/25/18 13:32 White Blood Count 15.3 Red Blood Count 5.15 Hemoglobin 15.2 Hematocrit 44.6 Mean Corpuscular Volume 86.6 Mean Corpuscular Hemoglobin 29.4 Mean Corpuscular Hemoglobin Concent 34.0 Red Cell Distribution Width 13.5 Platelet Count 214 Mean Platelet Volume 7.2 Neutrophils (%) (Auto) 90.6 Lymphocytes (%) (Auto) 3.7 Monocytes (%) (Auto) 4.6 Eosinophils (%) (Auto) 1.1 Basophils (%) (Auto) 0.0 Neutrophils # (Auto) 13.9 Lymphocytes # (Auto) 0.6 Monocytes # (Auto) 0.7 Eosinophils # (Auto) 0.2 Basophils # (Auto) 0.0 CBC Comment DIFF FINAL Differential Comment Prothrombin Time 10.8 Prothromb Time International Ratio 1.1 Activated Partial Thromboplast Time 20.5 Blood Urea Nitrogen 26 Creatinine 0.99 Random Glucose 298 Calcium Level 9.4 Sodium Level 134 Potassium Level 4.3 Chloride Level 97 Carbon Dioxide Level 24.2 Anion Gap 13 Estimat Glomerular Filtration Rate 56 Blood Gas Puncture Site DRAWN IN OR Blood Gas Patient Temperature 98.6 Blood Gas HCO3 25 Blood Gas Base Excess 1.4 Blood Gas Oxygen Saturation 97 Arterial Blood pH 7.43 Arterial Blood Partial Pressure CO2 39 Arterial Blood Partial Pressure O2 205 Arterial Blood Oxygen Content 17.6 Arterial Blood Carboxyhemoglobin 0.9 Arterial Blood Methemoglobin 1.7 Blood Gas Hemoglobin 12.7 Oxygen Delivery Device OR Result Diagram: 01/24/18213401/24/182134 Assessment and Plan Assessment and Plan Respiratory failure -Intubated for procedure -Continue mechanical ventilation until neurologically improved -ABG CXR daily -Vent bundle Brain mass -Most likely meningioma -Pathology pending -Status post resection -Further management per neurosurgeon -Keppra prophylaxis Brain edema -3% per neurosurgery recommendation -Dexamethasone Hypertension -Procardia -Clonidine -Nicardipine as needed DVT GI prophylaxis -Jordan's and SCDs -Pharmacological DVT prophylaxis per neurosurgery -PPI Critical Care: The total critical care time was 35 minutes. Time to perform other separately billable procedures was not included in the critical care time. Kody Baldwin MD Jan 25, 2018 7:43 pm
[2018-01-25 20:00] VITALS: BP 130/70; PULSE 68; PULSE 73; RESP 18; TEMP 97.8; O2SAT 100
[2018-01-25] MEDS ORDERED: SODIUM CHLORIDE 23.4% INJ 188 MEQ in SODIUM CHLOR 0.9% 1000 ML INJ 1,000 ML IV SCH (20:00)
[2018-01-25] MEDS ORDERED: ACETAMINOPHEN 325 MG TAB PO PRN (20:00)
[2018-01-25] MEDS ORDERED: MORPHINE SULFATE 2 MG/ML SYRINGE IM PRN (20:00)
[2018-01-25 20:13] VITALS: O2SAT 100
--- NOTE | 2018-01-25 20:28 | RADRPT ---
EXAM DATE/TIME: 01/25/2018 19:51 [facility] COMPARISON: CHEST SINGLE AP, December 19, 2017, 12:49. INDICATIONS : Central line placement MEDICAL HISTORY : Non-responsive SURGICAL HISTORY : Non-responsive ENCOUNTER: Initial ACUITY: 1 day PAIN SCORE: Non-responsive. LOCATION: Bilateral chest FINDINGS: There is a left subclavian line in place with the tip overlying the SVC. ET tube is in good position. No pneumothorax is seen. There is increased density at the left base. The right lung is clear. The h eart size is normal. CONCLUSION: 1. Left subclavian line in good position. 2. Left base consolidation, atelectasis and/or effusion. Tommie Trujillo MD on January 25, 2018 at 20:26 Board Certified Radiologist. This report was verified electronically.
[2018-01-25] MEDS: 3% SALINE INJ 500 ML IV PRN ×2 (20:29→20:40)
[2018-01-25] MEDS: PROPOFOL 1000 MG/100 ML INJ 100 ML IV PRN ×2 (20:29→20:40)
[2018-01-25] MEDS: SODIUM CHLOR 0.9% 1000 ML INJ 1,000 ML IV SCH (20:41)
[2018-01-25] MEDS: CHLORHEXIDINE 0.12% (ORAL KIT) 15 ML CUP MT SCH (20:42)
[2018-01-25 20:47] LABS: BASOPHIL # 0.1 TH/MM3 (0-0.2); BASOPHIL % 0.3 % (0.0-2.0); HEMATOCRIT 37.4 % (35.0-46.0); HEMOGLOBIN 12.7 GM/DL (11.6-15.3); LYMPH % 2.3 % (9.0-44.0); LYMPHOCYTE # 0.5 TH/MM3 (1.0-4.8); MEAN CORPUSCULAR HEMOGLOBIN 29.6 PG (27.0-34.0); MEAN CORPUSCULAR HGB CONC 34.1 % (32.0-36.0); MEAN PLATELET VOLUME 7.1 FL (7.0-11.0); MONO % 3.8 % (0.0-8.0); MONOCYTE # 0.8 TH/MM3 (0-0.9); NEUT % 93.6 % (16.0-70.0); PLATELET COUNT 216 TH/MM3 (150-450); RED CELL DISTRIBUTION WIDTH 13.6 % (11.6-17.2); WHITE BLOOD COUNT 21.4 TH/MM3 (4.0-11.0)
[2018-01-25] MEDS: INSULIN DETEMIR 100 UNITS/ML VIAL SQ SCH (21:07)
[2018-01-25 21:10] LABS: INTERNATIONAL NORMALIZED RATIO 1.1 RATIO; PROTHROMBIN TIME - PATIENT 11.1 SEC (9.8-11.6)
[2018-01-25 21:13] LABS: BICARBONATE 24.9 MEQ/L (21.0-32.0); CALCIUM 7.8 MG/DL (8.5-10.1); CREATININE 0.89 MG/DL (0.50-1.00)
[2018-01-25 21:32] LABS: BANDS 8 % (0-6); LYMPHOCYTES 1 % (9-44); MONOCYTES 1 % (0-8); POLYS (SEG NEUTROPHILS) 90 % (16-70)
[2018-01-25 22:00] VITALS: PULSE 73
[2018-01-26] VITALS (20 sets, daily range): BP systolic 104–132; BP diastolic 53–76; PULSE 72–110; RESP 16–18; TEMP 97–98.6; O2SAT 93–100
--- NOTE | 2018-01-26 00:40 | PD.PROCEDR ---
Procedure Note Procedure Central line placement A time-out was completed verifying correct patient, procedure, site, positioning , and special equipment if applicable. The patient was placed in a dependent position appropriate for central line placement based on the vein to be cannulated. The patients left shoulder was prepped and draped in sterile fashion. 1% Lidocaine was used to anesthetize the surrounding skin area. A triple lumen 9-[place] Cordis catheter was introduced into the the left subclavian vein using the Seldinger technique. The catheter was threaded smoothly over the guide wire and appropriate blood return was obtained. Each lumen of the catheter was evacuated of air and flushed with sterile saline. The catheter was then sutured in place to the skin and a sterile dressing applied. Perfusion to the extremity distal to the point of catheter insertion was checked and found to be adequate. Estimated Blood Loss: 1ml The patient tolerated the procedure well and there were no complications. Kody Baldwin MD Jan 26, 2018 12:40 am
[2018-01-26] MEDS: PROPOFOL 1000 MG/100 ML INJ 100 ML IV PRN ×5 (03:24→17:41)
[2018-01-26] MEDS: NS + KCL 20 MEQ INJ 1,000 ML IV SCH (03:30)
[2018-01-26 03:55] LABS: AUTOMATED NEUTROPHIL # 16.2 TH/MM3 (1.8-7.7); BASOPHIL % 0.3 % (0.0-2.0); HEMATOCRIT 34.6 % (35.0-46.0); HEMOGLOBIN 11.9 GM/DL (11.6-15.3); LYMPH % 3.3 % (9.0-44.0); LYMPHOCYTE # 0.6 TH/MM3 (1.0-4.8); MEAN CELL VOLUME 86.9 FL (80.0-100.0); MEAN CORPUSCULAR HGB CONC 34.5 % (32.0-36.0); MEAN PLATELET VOLUME 7.3 FL (7.0-11.0); MONO % 4.6 % (0.0-8.0); MONOCYTE # 0.8 TH/MM3 (0-0.9); NEUT % 91.8 % (16.0-70.0); PLATELET COUNT 192 TH/MM3 (150-450); RED BLOOD COUNT 3.98 MIL/MM3 (4.00-5.30); RED CELL DISTRIBUTION WIDTH 13.7 % (11.6-17.2); WHITE BLOOD COUNT 17.6 TH/MM3 (4.0-11.0)
[2018-01-26 04:12] LABS: INTERNATIONAL NORMALIZED RATIO 1.1 RATIO; PROTHROMBIN TIME - PATIENT 10.7 SEC (9.8-11.6)
[2018-01-26 04:21] LABS: BICARBONATE 22.5 MEQ/L (21.0-32.0); CALCIUM 7.7 MG/DL (8.5-10.1); CREATININE 0.92 MG/DL (0.50-1.00)
[2018-01-26] MEDS: niCARdipine INJ 25 MG in SODIUM CHLOR 0.9% 250 ML INJ 250 ML IV PRN ×6 (04:22→23:36)
[2018-01-26 04:41] LABS: BANDS 5 % (0-6); CORRECTED NUCLEATED RBC 1 /100 WBC (0-0); LYMPHOCYTES 2 % (9-44); MONOCYTES 5 % (0-8); NEUTROPHIL # MANUAL DIFF 16.4 TH/MM3 (1.8-7.7); NUCLEATED RED BLOOD CELL 1 (0-0); POLYS (SEG NEUTROPHILS) 88 % (16-70)
--- NOTE | 2018-01-26 05:21 | RADRPT ---
EXAM DATE/TIME: 01/26/2018 05:08 [facility] COMPARISON: CT BRAIN W/O CONTRAST, January 25, 2018, 17:59. INDICATIONS : Post op craniotomy. Tumor resection. RADIATION DOSE: 53.92 CTDIvol (mGy) ; Tabletop CT Head MEDICAL HISTORY : Non-responsive. SURGICAL HISTORY : Non-responsive. ENCOUNTER: Subsequent ACUITY: 2 days PAIN SCALE: Non-responsive LOCATION: cranial TECHNIQUE: Multiple contiguous axial images were obtained of the head. Using automated exposure control and adj ustment of the mA and/or kV according to patient size, radiation dose was kept as low as reasonably a chievable to obtain optimal diagnostic quality images. DICOM format image data is available electro nically for review and comparison. FINDINGS: CEREBRUM: The stable amounts of intraparenchymal hemorrhage in the posterior left temporal region and throughou t the left frontal lobe. There is extensive edema in the left frontal lobe with mass effect upon the ventricular system. The third ventricle are shifted to the right by 3 mm. POSTERIOR FOSSA: The cerebellum and brainstem are intact. The 4th ventricle is midline. The cerebellopontine angle i s unremarkable. There is evidence of extensive cranial surgery with a subdural drain remain in good position. Sinuses are clear. CONCLUSION: Stable he is ventricle hemorrhage and edema in the left frontal and left posterior temporal regions. Slight mass effect left to right shift of the third ventricle measuring 3 mm. No new hemorrhage is id entified. There may be slightly less and edema in the frontal lobes on the previous study but the elif nge is minimal. Matias Simpson MD on January 26, 2018 at 5:18 Board Certified Radiologist. This report was verified electronically.
--- NOTE | 2018-01-26 06:58 | HHI.CCPN ---
Subjective Remarks/Hospital Course 67-year-old female patient with history of a previous brain mass for which she underwent evaluation. She was after court order because she became aggressive and hostile at home. The patient lives with her mother, who has Alzheimer disease. The CT of the head performed in the emergency department showed an Extra-axial left frontal mass again seen with left to right midline shift, likely related to meningioma. She has undergone another tumor resection by Dr. Herring today. The patient remains postprocedure intubated, also the repeated postoperative CAT scan of the head show significant amount of brain edema. Subjective 01/26: FiO2 remains at 75%. Small left pleural effusion/atelectasis noted. Remains on 3% at [address] brain revealed stable cerebral edema with stable hemorrhage. Sedated on propofol drip at 40 mcg/kg/min Objective Vital Signs Date Time Temp Pulse Resp B/P (MAP) Pulse Ox O2 Delivery O2 Flow Rate FiO2 01/26/18 06:00 87 01/26/18 05:00 100 100 01/26/18 04:22 131/60 01/26/18 04:00 98.6 18 Intake and Output 01/26/18 01/26/18 01/27/18 08:00 16:00 00:00 Output Total 445 ml Balance -445 ml Result Diagram: 01/26/18 0330 01/26/18 0330 Imaging Last Impressions Head CT 01/26/18 0600 Signed Impressions: Service Date/Time: Friday, January 26, 2018 05:08 - CONCLUSION: Stable he is ventricle hemorrhage and edema in the left frontal and left posterior temporal regions. Slight mass effect left to right shift of the third ventricle measuring 3 mm. No new hemorrhage is identified. There may be slightly less and edema in the frontal lobes on the previous study but the change is minimal. Matias Simpson MD Head CTA 01/25/18 0000 Signed Impressions: Service Date/Time: Thursday, January 25, 2018 17:59 - CONCLUSION: No acute vascular findings Tommie Solis MD Chest X-Ray 01/25/18 0000 Signed Impressions: Service Date/Time: Thursday, January 25, 2018 19:51 - CONCLUSION: 1. Left subclavian line in good position. 2. Left base consolidation, atelectasis and/ or effusion. Tommie Trujillo MD Brain MRI 01/24/18 0000 Signed Impressions: Service Date/Time: December 10:18 - CONCLUSION: Large enhancing mass in the upper left frontal lobe as well as dural enhancement along the base of the skull anterior midline. Vern Boo MD Procedures Left subclavian CVL 01/[address] Baldwin Left radial A-line placed in OR 01/25 Objective Remarks GENERAL: Sedated and intubated female SKIN: Warm and dry. HEAD: Post craniectomy EYES: No scleral icterus. No injection or drainage. NECK: Supple, trachea midline. No JVD or lymphadenopathy. CARDIOVASCULAR: Regular rate and rhythm without murmurs, gallops, or rubs. RESPIRATORY: Breath sounds equal bilaterally. No accessory muscle use. GASTROINTESTINAL: Abdomen soft, non-tender, nondistended. MUSCULOSKELETAL: No cyanosis, or edema. BACK: Nontender without obvious deformity. NEURO EXAM: GCS: 3T Mental Status: The patient is sedated and intubated. Heavily sedated Urinary Catheter: Yes Assessment to: Continue Hills insert reason: Prolonged Immobilization Vascular Central Line Catheter: Yes Assessment to: Continue Date of Insertion: Jan 25, 2018 Line: Central Venous Catheter Side: Left Location: Subclavian A/P Assessment and Plan Neuro/Psych: Postop day #1 bifrontal craniotomy for resection of left parafalcine meningioma , bilateral cribriform plate -Planum sphenoidale meningioma with use of frameless intraoperative stereotactic navigation for planning of the incision site and bone flap and resection of the parafalcine and frontal skull base neoplasm CT brain postoperative 01/25 revealed subcutaneous air/subarachnoid hemorrhage left temporal and right parietal region. 1.8 parenchymal hemorrhage left temporal region. Neuro basilar cisterns. Central sulci are effaced. CT brain 01/26 - Stable he is ventricle hemorrhage and edema in the left frontal and left posterior temporal regions. Slight mass effect left to right shift of the third ventricle measuring 3 mm. No new hemorrhage is identified. There may be slightly less and edema in the frontal lobes on the previous study but the change is minimal. Evaluated by psychiatry Dr. Costa and deemed competent Currently on propofol drip at 40 mcg/kg minute and as needed fentanyl drip for sedation/analgesia while intubated Goal of RASS of -2 Daily sedation vacation when okay with Dr. Herring Remains on 3% hypertonic saline at 20 cc an hour due to cerebral edema. Goal sodium 150-155 Serial sodiums every 6 hours with serum serum osmolalities every 6 hours Remains on dexamethasone at 4 mg IV every 12 hours for brain mass. Management per neurosurgery Levetiracetam 500 mg by tube twice daily CV: Hypertension Written for nicardipine drip and labetalol/clonidine as needed to maintain systolic blood pressure less than 140 Reason for phenylephrine drip to maintain systolic blood pressure greater than 110 Previously on nifedipine 30 mg sustained release daily. Resp: Postoperative respiratory failure [facility] /11/02/74 Ventilator bundle Albuterol/ipratropium aerosols every 6 hours with albuterol aerosols every 2 hours as needed dyspnea Spontaneous breathing trials when clinically indicated Portable chest x-ray in a.m. 01/27 GI: Patient is currently n.p.o. OG tube to low intermittent wall suction Start tube feeding with Glucerna 1.5 goal 50 cc an hour Lansoprazole 30 mg daily for GI prophylaxis Docusate sodium 100 mg twice daily/senna liquid 8.6 mg twice daily for bowel regimen : Hills catheter has been placed for accurate I's and O's in a critically ill patient Endo: Hyperglycemia of critical illness/steroid induced Continue on low-dose insulin detemir 5 units twice daily Sliding scale insulin/moderate regimen with Accu-Cheks every 4 hours to maintain euglycemia Novulog Renal: Creatinine currently within normal limits Monitor urine output Accurate I's and O's Heme: Leukocytosis Monitor CBC daily. Follow trends ID: Monitor for signs and symptoms of infection FEN: Patient is currently on 3% saline at 20 cc an hour Serial sodiums every 6 hours. Goal 150-155 MSK: Physical therapy evaluate and treat Access -Left subclavian CVL placed 01/25 -Left radial A-line placed 01/25 Prophylaxis -GI -lansoprazole -DVT -SCD/holding pharmacological prophylaxis in light of hemorrhage. Initiate when okay with neurosurgery Critical Care: The total critical care time was 35 minutes. Time to perform other separately billable procedures was not included in the critical care time. Jose Millan MD Jan 26, 2018 06:58
[2018-01-26] MEDS ORDERED: GLUCAGON 1 MG/ML VIAL OTHER PRN (07:00)
[2018-01-26] MEDS ORDERED: DEXTROSE 50% IN WATER 50 ML VIAL(D50) IV PUSH PRN (07:00)
[2018-01-26] MEDS ORDERED: RESP: ALBUTEROL 2.5 MG/3 ML NEB (PRN) NEB (07:15)
[2018-01-26] MEDS ORDERED: fentaNYL DRIP 250 ML IV PRN (07:15)
[2018-01-26] MEDS ORDERED: GLYCERIN ADULT 2 GM SUPP RECTAL ONE (07:15)
[2018-01-26] MEDS ORDERED: PHENYLEPHRINE INJ 40 MG in DEXTROSE 5% IN WATE 500 ML INJ 496 ML IV PRN ×2 (07:30)
[2018-01-26] MEDS ORDERED: POTASSIUM PHOSPHATE MONOBASIC 500 MG TAB PO/TUBE PRN (07:45)
[2018-01-26] MEDS ORDERED: MAGNESIUM SULFATE INJ 4 GM in SODIUM CHLORIDE 0.9% INJ 92 ML IV PRN (07:45)
[2018-01-26] MEDS ORDERED: POTASSIUM CHLORIDE 25 MEQ EFFERVESCENT TAB PO PRN (07:45)
[2018-01-26] MEDS ORDERED: MAGNESIUM OXIDE 400 MG TAB PO PRN (07:45)
[2018-01-26] MEDS ORDERED: POTASSIUM CHLOR 20 MEQ PREMIX 100 ML IV PRN (07:45)
[2018-01-26] MEDS ORDERED: POTASSIUM PHOSPHATE MONOBASIC 500 MG TAB PO PRN (07:45)
[2018-01-26] MEDS ORDERED: MAGNESIUM SULFATE INJ 2 GM in SODIUM CHLORIDE 0.9% INJ 96 ML IV PRN (07:45)
[2018-01-26] MEDS ORDERED: SODIUM PHOSPHATE INJ 30 MMOL in SODIUM CHLOR 0.9% 250 ML INJ 240 ML IV PRN (07:45)
[2018-01-26] MEDS ORDERED: POTASSIUM CHLOR 40 MEQ PREMIX 100 ML IV PRN (07:45)
[2018-01-26] MEDS: SODIUM CHLOR 0.9% 1000 ML INJ 1,000 ML IV SCH ×2 (07:55→17:59)
[2018-01-26] MEDS: CHLORHEXIDINE 0.12% (ORAL KIT) 15 ML CUP MT SCH ×2 (08:00→20:24)
[2018-01-26] MEDS: INSULIN ASPART SUPPLEMENTAL SCALE SQ SCH ×5 (08:00→23:58)
[2018-01-26] MEDS: levETIRAcetam 500 MG/5 ML UDC NG SCH ×2 (08:48→20:23)
[2018-01-26] MEDS: DEXAMETHASONE 4 MG TAB PO SCH ×2 (08:48→20:23)
[2018-01-26] MEDS: LANSOPRAZOLE SOLUTAB 30 MG TAB NG SCH (08:48)
[2018-01-26] MEDS: DOCUSATE SODIUM 100 MG/10 ML UDC PO SCH ×2 (08:48→20:23)
[2018-01-26] MEDS: SENNOSIDES SYRUP 8.8 MG/5 ML CUP PO SCH ×2 (08:49→20:23)
[2018-01-26] MEDS: INSULIN DETEMIR 100 UNITS/ML VIAL SQ SCH ×2 (08:49→20:24)
--- NOTE | 2018-01-26 09:29 | HHI.NSPN ---
(Js Nj) History Chief Complaint: Unable to obtain due to patient's clinical condition. (ClemJs) Interval History 01/18: This is a 67-year-old female patient with history of a previous brain mass for which she underwent evaluation. She was brought today to the emergency room after court order because she became aggressive and hostile at home, the patient lives with her mother, who has Alzheimer disease. She has been fighting with her sister and now she is being brought for medical evaluation and psychiatric evaluation. The patient reports that she was previously seen because of a brain tumor and she still has not decided what to do with it. 01/19: Patient history of brain tumor. 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 01/23: The patient is in the bathroom when seen. She is assisted up from the commode and uses a walker to ambulate back to her bed where she sits on the edge of it. She denies any headache or dizziness. She does state that her vision is off but she is not able to describe it any further. She has pain to the right elbow from a fall, otherwise she has no pain to the extremities. She denies any numbness or tingling to the extremities. She does have some difficulty finding the correct word she wants to use. No sensorimotor deficits are noted. 01/24: When seen this afternoon the patient is awake and alert talking with the Electric Serviceman. She does endorse a slight headache this morning but denies any dizziness, visual problems or nausea. She does have some right elbow and left foot pain. She also says that she hurt both knees. Otherwise she has no pain into the extremities and denies any numbness or tingling to them. There is no change in her neuro exam from yesterday. 01/25: The patient went to the operating room for a bifrontal craniotomy for resection of a left parafalcine meningioma and a bilateral cribriform plate- planum sphenoidale meningioma. Post-operatively she was transferred to [facility] for further care and monitoring. 01/26: This morning the patient remains intubated and mechanically ventilated. She is sedated with propofol. A nicardipine drip is infusing for blood pressure control. She did withdraw the right hand and both feet to noxious stimulation upon examination. (Js Nj) System Review Comments Unable to obtain due to patient's clinical condition. (Js Nj) Exam Results 01/24/18 01/24/18 01/25/18 01/25/18 01/26/18 01/26/18 06:00 18:00 06:00 18:00 06:00 18:00 Intake Total 240 ml 4200 ml Output Total 2700 ml 2172 ml Balance 240 ml 1500 ml -2172 ml Intake Oral 240 ml IV Total 4200 ml Output Urine Total 1800 ml 1977 ml Drainage Total 200 ml 195 ml Estimated Blood Loss 700 ml # Voids 2 3 Vital Signs Date Time Temp Pulse Resp B/P (MAP) Pulse Ox O2 Delivery O2 Flow Rate FiO2 01/26/18 06:00 87 01/26/18 05:00 100 100 01/26/18 04:22 75 131/60 01/26/18 04:00 98.6 72 18 100 132/64 (86) 01/26/18 04:00 72 01/26/18 02:00 80 01/26/18 00:24 100 75 01/26/18 00:00 98.3 76 18 100 131/70 (90) 01/26/18 00:00 76 01/25/18 22:00 73 01/25/18 20:13 100 90 01/25/18 20:00 97.8 68 18 100 130/70 (90) 01/25/18 20:00 73 01/25/18 19:02 97 50 01/25/18 04:52 97.7 69 17 141/67 (91) 96 01/25/18 00:52 97.5 72 17 142/89 (106) 96 01/24/18 21:03 98.4 85 17 115/65 (82) 94 01/24/18 16:00 97.9 78 18 131/70 (90) 93 01/24/18 12:00 97.6 75 22 158/76 (103) 94 01/24/18 08:59 97.6 74 20 131/68 (89) 94 01/24/18 04:20 97.5 77 20 132/75 (94) 94 01/24/18 00:25 97.1 73 18 142/69 (93) 95 01/24/18 00:00 97.7 84 18 146/65 (92) 94 01/23/18 16:14 98.5 83 20 137/70 (92) 92 01/23/18 11:19 97.9 82 20 141/68 (92) 96 (Js Nj) Physical Examination GENERAL: Intubated & mechanically ventilated, propofol infusing at 40 mcg/kg/ min for sedation. No apparent distress. HEENT: Normocephalic. Dressing intact to the bilateral craniotomy surgical incision w/o any evident drainage noted, DIANN drain to bulb suction w/ serosanguinous drainage. PERRLA 3 mm. Orally intubated, OGT. RESPIRATORY: CTAB w/o W/R/R, equal excursion, nonlaboured, intubated & mechanically ventilated. CARDIOVASCULAR: S1S2 w/RRR w/o MGR, cap refill < 2 sec, radial & pedal pulses 2 + bilaterally, no pedal edema. Monitor is sinus rhythm w/o any ectopy noted. Nicardipine infusing at 5 mg/hr. GASTROINTESTINAL: Abdomen soft, bowel sounds not appreciated, OGT to LIWS. GENITOURINARY: Normal female genitalia, Hills catheter to BSD w/clear yellow urine. MUSCULOSKELETAL: Moved RUE & BLE to noxious stimulation. Evolving ecchymosis to right elbow TTP. Evolving ecchymosis bilateral knees. NEUROLOGICAL: Obtunded, sedated. Nonverbal, orally intubated. No eye opening to any stimulation. Did not follow any commands. Withdrew right hand & both feet to local noxious stimulation. Also moved left foot slightly to noxious stimulation to LUE. 3% hypertonic saline infusing at 20 mL/hr. (Js Nj) Lab, Micro, Other Results Recent Impressions Head CT 01/26/18 0600 Signed Impressions: Service Date/Time: Friday, January 26, 2018 05:08 - CONCLUSION: Stable he is ventricle hemorrhage and edema in the left frontal and left posterior temporal regions. Slight mass effect left to right shift of the third ventricle measuring 3 mm. No new hemorrhage is identified. There may be slightly less and edema in the frontal lobes on the previous study but the change is minimal. Matias Simpson MD Head CTA 01/25/18 0000 Signed Impressions: Service Date/Time: Thursday, January 25, 2018 17:59 - CONCLUSION: No acute vascular findings Tommie Solis MD Head CT 01/25/18 0000 Signed Impressions: Service Date/Time: Thursday, January 25, 2018 17:59 - CONCLUSION: Status post frontal craniotomy with postsurgical change in the medial left frontal lobe in the region of previous seen mass. There is mild subdural air and hemorrhage seen in the frontal regions. There is subarachnoid hemorrhage seen in the left temporal lobe and to a lesser degree right parietal lobe. There is a focal 1.8 cm parenchymal hemorrhage seen in the posterior left temporal lobe. The basal cisterns are very narrowed. The cortical sulci are effaced. Much of the mass effect was present previously. Tommie Trujillo MD Chest X-Ray 01/25/18 0000 Signed Impressions: Service Date/Time: Thursday, January 25, 2018 19:51 - CONCLUSION: 1. Left subclavian line in good position. 2. Left base consolidation, atelectasis and/ or effusion. Tommie Trujillo MD Brain MRI 01/24/18 0000 Signed Impressions: Service Date/Time: December 10:18 - CONCLUSION: Large enhancing mass in the upper left frontal lobe as well as dural enhancement along the base of the skull anterior midline. Vern Boo MD Laboratory Tests Test 01/24/18 21:35 01/25/18 13:32 01/25/18 20:20 01/26/18 03:30 White Blood Count 15.3 TH/MM3 21.4 TH/MM3 17.6 TH/MM3 Red Blood Count 5.15 MIL/MM3 4.30 MIL/MM3 3.98 MIL/MM3 Hemoglobin 15.2 GM/DL 12.7 GM/DL 11.9 GM/DL Hematocrit 44.6 % 37.4 % 34.6 % Mean Corpuscular Volume 86.6 FL 87.0 FL 86.9 FL Mean Corpuscular Hemoglobin 29.4 PG 29.6 PG 30.0 PG Mean Corpuscular Hemoglobin Concent 34.0 % 34.1 % 34.5 % Red Cell Distribution Width 13.5 % 13.6 % 13.7 % Platelet Count 214 TH/MM3 216 TH/MM3 192 TH/MM3 Mean Platelet Volume 7.2 FL 7.1 FL 7.3 FL Neutrophils (%) (Auto) 90.6 % 93.6 % 91.8 % Lymphocytes (%) (Auto) 3.7 % 2.3 % 3.3 % Monocytes (%) (Auto) 4.6 % 3.8 % 4.6 % Eosinophils (%) (Auto) 1.1 % 0.0 % 0.0 % Basophils (%) (Auto) 0.0 % 0.3 % 0.3 % Neutrophils # (Auto) 13.9 TH/MM3 20.0 TH/MM3 16.2 TH/MM3 Lymphocytes # (Auto) 0.6 TH/MM3 0.5 TH/MM3 0.6 TH/MM3 Monocytes # (Auto) 0.7 TH/MM3 0.8 TH/MM3 0.8 TH/MM3 Eosinophils # (Auto) 0.2 TH/MM3 0.0 TH/MM3 0.0 TH/MM3 Basophils # (Auto) 0.0 TH/MM3 0.1 TH/MM3 0.0 TH/MM3 CBC Comment DIFF FINAL AUTO DIFF AUTO DIFF Differential Comment FINAL DIFF MANUAL FINAL DIFF MANUAL Prothrombin Time 10.8 SEC 11.1 SEC 10.7 SEC Prothromb Time International Ratio 1.1 RATIO 1.1 RATIO 1.1 RATIO Activated Partial Thromboplast Time 20.5 SEC 18.7 SEC 19.1 SEC Blood Urea Nitrogen 26 MG/DL 20 MG/DL 20 MG/DL Creatinine 0.99 MG/DL 0.89 MG/DL 0.92 MG/DL Random Glucose 298 MG/DL 293 MG/DL 270 MG/DL Calcium Level 9.4 MG/DL 7.8 MG/DL 7.7 MG/DL Sodium Level 134 MEQ/L 138 MEQ/L 141 MEQ/L Potassium Level 4.3 MEQ/L 3.7 MEQ/L 3.7 MEQ/L Chloride Level 97 MEQ/L 99 MEQ/L 103 MEQ/L Carbon Dioxide Level 24.2 MEQ/L 24.9 MEQ/L 22.5 MEQ/L Anion Gap 13 MEQ/L 14 MEQ/L 16 MEQ/L Estimat Glomerular Filtration Rate 56 ML/MIN 63 ML/MIN 61 ML/MIN Blood Gas Puncture Site DRAWN IN OR Blood Gas Patient Temperature 98.6 Blood Gas HCO3 25 mmol/L Blood Gas Base Excess 1.4 mmol/L Blood Gas Oxygen Saturation 97 % Arterial Blood pH 7.43 Arterial Blood Partial Pressure CO2 39 mmHg Arterial Blood Partial Pressure O2 205 mmHg Arterial Blood Oxygen Content 17.6 Vol % Arterial Blood Carboxyhemoglobin 0.9 % Arterial Blood Methemoglobin 1.7 % Blood Gas Hemoglobin 12.7 G/DL Oxygen Delivery Device OR Differential Total Cells Counted 100 100 Neutrophils % (Manual) 90 % 88 % Band Neutrophils % 8 % 5 % Lymphocytes % 1 % 2 % Monocytes % 1 % 5 % Neutrophils # (Manual) 21.0 TH/MM3 16.4 TH/MM3 Platelet Estimate NORMAL NORMAL Platelet Morphology Comment NORMAL NORMAL Nucleated Red Blood Cells 1 /100 WBC (Js Nj) Medical Decision Making Impression and Plan Impression: 1. Large frontal neoplasm noted on CT scan and previous MRI imaging. 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 Postoperative Diagnosis: (1) Meningioma, multiple (2) Parasagittal meningioma 1. Recurrent left parafalcine meningioma 2. Bilateral cribriform plate-planum sphenoidale meningioma Patient remains intubated & sedated. She did withdraw the right hand & both feet to noxious stimulation. Reviewed labs for today. Interval improvement in leukocytosis. INR 1.1 & apTT 19.1. Interval decrease in eGFR. CT brain demonstrates stable left frontal & posterior temporal region ventricular haemorrhage & edema w/slight mass effect [id number] shift of third ventricle measuring 3 mm. No new haemorrhage identified. DIANN drain with 395 mL output since surgery as of shift change this morning. POD #1 () s/p: Bifrontal craniotomy for resection 1. Left parafalcine meningioma 2. Bilateral cribriform plate -Planum sphenoidale meningioma 3. Use of frameless intraoperative stereotactic navigation for planning of the incision site and bone flap and resection of the parafalcine and frontal skull base neoplasm. Plan: Primary management per Hospitalist. Critical care management per Rolled Ham Lacer. Neuro checks. Stat CT brain for any decline in neuro status. Monitor DIANN drain output. Maintain SBP between 110 and 140 mm Hg. ADDENDUM at 1217: Notified of patient's pupils being different. Went in to evaluate and the pupils are deviated downward. The left will drift back up and around but returns to be downward. Do not appear reactive but still 3 mm bilaterally. Discussed with Rolled Ham Lacer who concurs that this is new. Will do a stat CT brain and notify Dr Herring. BET ADDENDUM at 1505: CT completed and images reviewed and compared with this mornings. Concur w/Radiologist's findings of improvement from this mornings. Dr Herring notified. Right pupil is still deviated downward but the left is minimally downward. BET (Js Nj) Attending Statement The exam, history, and the medical decision-making described in the above note were completed with the assistance of the mid-level provider. I reviewed and agree with the findings presented. I attest that I had a [id number] encounter with the patient on the same day, and personally performed and documented my assessment and findings in the medical record. Patient remains intubated today. Possible UTI. On Levaquin per intensivists. Insulin sliding scale. Scalp drain with continued at least moderate output. Mostly CSF. Follow-up CT scan head 2 01/26/18 images reviewed by the undersigned. Some improvement versus initial postoperative scan with mild to moderate residual left frontal edema without significant midline shift. No evidence of venous or arterial infarction. On examination the patient has a somewhat wandering disconjugate gaze. No definite seizure activity but remains a concern despite initial coverage with prophylactic Keppra postop. Fosphenytoin added. EEG requested Continue ventilatory support. (Tolu Herring MD) Js Nj Jan 26, 2018 09:29 Tolu Herring MD Jan 26, 2018 20:10
[2018-01-26] MEDS: RESP: ALBUTEROL 2.5 MG/IPRATROPIUM 0.5 MG NEB (SCH) NEB ×3 (09:42→20:20)
[2018-01-26] MEDS: ARTIFICIAL TEARS OPTH SOLN 15 ML BTL EACH EYE SCH ×2 (12:50→22:00)
--- NOTE | 2018-01-26 14:03 | EKG ---
Date Performed: 01/25/2018 Time Performed: 05:07:08 PTAGE: 67 years EKG: Sinus rhythm . Ant/septal and lateral T wave changes may be due to myocardial ischemia Abnormal ECG PREVIOUS TRACING : 12/21/2017 16.07 Since the previous tracing, no significant change noted DOCTOR: Smtih Moody Interpretating Date/Time 01/26/2018 14:02:14
--- NOTE | 2018-01-26 14:14 | RADRPT ---
EXAM DATE/TIME: 01/26/2018 13:48 [facility] COMPARISON: No previous studies available for comparison. INDICATIONS : Post operative brain surgery, new downward gaze. RADIATION DOSE: 35.92 CTDIvol (mGy) MEDICAL HISTORY : Dementia. brain mass SURGICAL HISTORY : Craniotomy. brain surgery ENCOUNTER: Initial ACUITY: 1 day PAIN SCALE: Non-responsive LOCATION: Bilateral head TECHNIQUE: Multiple contiguous axial images were obtained of the head. Using automated exposure control and adj ustment of the mA and/or kV according to patient size, radiation dose was kept as low as reasonably a chievable to obtain optimal diagnostic quality images. DICOM format image data is available electro nically for review and comparison. FINDINGS: There is no new intracranial hemorrhage. Frontal lobe edema and mass effect has improved on the left side. Hemorrhage in the posterior left temporal region is relatively stable. There is no hydrocephalus. Previous frontal craniotomy noted with subdural drain. CONCLUSION: 1. Slight improvement in acute hemorrhage and edema in the frontal lobe since January 26 exam from asad ier today with slightly less mass effect and midline shift. No new hemorrhage. Andrey Pearson MD on January 26, 2018 at 14:08 Board Certified Radiologist. This report was verified electronically.
--- NOTE | 2018-01-26 16:33 | PD.PROCEDR ---
Procedure Note Procedure DATE: 01/26/2018 PROCEDURE: Right femoral arterial catheter placement INDICATION: Hemodynamic access/monitoring DETAILS OF PROCEDURE The patient was placed in supine position. The skin was cleansed with Chloraprep. Additional barrier precautions included large sterile drape, sterile gloves, sterile gown, face mask, and hat. 1% lidocaine was used for local anesthesia. Under direct ultrasound guidance and on the initial attempt, the artery was accessed with an introducer needle. The guide wire was advanced. Using Seldinger technique 20 gauge arterial catheter was placed. The guide wire was removed. The catheter was connected to a transducer line and flushed with saline. The video monitor displayed normal arterial wave forms. The catheter was secured with 2-0 silk. A sterile dressing with antibiotic disc was applied. ESTIMATED BLOOD LOSS: minimal COMPLICATIONS: None Jose Millan MD Jan 26, 2018 16:33
[2018-01-26] MEDS ORDERED: FOSPHENYTOIN INJ 1,000 MGPE in SODIUM CHLORIDE 0.9% INJ 50 ML IV ONE (17:30)
[2018-01-26] MEDS: 3% SALINE INJ 500 ML IV PRN (17:54)
[2018-01-26] MEDS ORDERED: LEVOFLOXACIN 750 MG PREMIX INJ 150 ML IV SCH (18:00)
[2018-01-26] MEDS: NYSTATIN 100,000 U/GM PWD 15 GM BTL TOPICAL SCH (20:24)
[2018-01-26 21:11] LABS: BILIRUBIN, URINE NEG (NEG); BLOOD, URINE NEG (NEG); GLUCOSE,URINE 1000 mg/dL (NEG); HYALINE CAST, URINE 2 /lpf (RARE); KETONE, URINE 10 mg/dL (NEG); MUCUS URINE FEW /lpf (OCC); NITRITE,URINE NEG (NEG); PH, URINE 5.5 (5.0-8.5); SQUAMOUS EPITHELIAL CELL URINE <1 /hpf (0-5); URIC ACID CRYSTALS, URINE RARE /hpf; URINE COLOR YELLOW (YELLW/STRAW); URINE LEUKOCYTE ESTERASE NEG (NEG)
[2018-01-26] MEDS: FOSPHENYTOIN SODIUM 100 MG PE/2 ML VIAL IV SCH (21:21)
[2018-01-27] VITALS (19 sets, daily range): BP systolic 106–138; BP diastolic 43–61; PULSE 68–96; RESP 14–18; TEMP 97.6–100.3; O2SAT 93–97
[2018-01-27] MEDS: niCARdipine INJ 25 MG in SODIUM CHLOR 0.9% 250 ML INJ 250 ML IV PRN ×3 (01:08→08:27)
[2018-01-27] MEDS: PROPOFOL 1000 MG/100 ML INJ 100 ML IV PRN ×5 (02:19→20:59)
[2018-01-27] MEDS: RESP: ALBUTEROL 2.5 MG/IPRATROPIUM 0.5 MG NEB (SCH) NEB ×4 (03:29→19:52)
[2018-01-27] MEDS: INSULIN ASPART SUPPLEMENTAL SCALE SQ SCH ×5 (04:36→21:35)
--- NOTE | 2018-01-27 04:49 | RADRPT ---
EXAM DATE/TIME: 01/27/2018 04:03 [facility] COMPARISON: CHEST SINGLE AP, January 25, 2018, 19:51. INDICATIONS : Shortness of breath. MEDICAL HISTORY : Dementia. brain mass SURGICAL HISTORY : Craniotomy. brain surgery ENCOUNTER: Subsequent ACUITY: 1 week PAIN SCORE: Non-responsive. LOCATION: Bilateral chest FINDINGS: Endotracheal tube in good position. NG coiled in stomach. Left central line in superior vena cava. Bi lateral mostly basilar airspace disease, right. Small left effusion. Findings similar to January 25. CONCLUSION: 1. Support apparatus in good position. Basilar airspace disease, left greater than right and small le ft effusion. Andrey Pearson MD on January 27, 2018 at 4:46 Board Certified Radiologist. This report was verified electronically.
[2018-01-27 05:48] LABS: AUTOMATED NEUTROPHIL # 16.3 TH/MM3 (1.8-7.7); BASOPHIL % 0.2 % (0.0-2.0); HEMATOCRIT 28.3 % (35.0-46.0); HEMOGLOBIN 9.9 GM/DL (11.6-15.3); LYMPH % 3.3 % (9.0-44.0); LYMPHOCYTE # 0.6 TH/MM3 (1.0-4.8); MEAN CELL VOLUME 88.3 FL (80.0-100.0); MEAN CORPUSCULAR HEMOGLOBIN 30.8 PG (27.0-34.0); MEAN CORPUSCULAR HGB CONC 34.8 % (32.0-36.0); MEAN PLATELET VOLUME 7.6 FL (7.0-11.0); MONOCYTE # 0.5 TH/MM3 (0-0.9); NEUT % 93.5 % (16.0-70.0); PLATELET COUNT 185 TH/MM3 (150-450); RED CELL DISTRIBUTION WIDTH 13.4 % (11.6-17.2); WHITE BLOOD COUNT 17.5 TH/MM3 (4.0-11.0)
[2018-01-27] MEDS: ARTIFICIAL TEARS OPTH SOLN 15 ML BTL EACH EYE SCH ×3 (06:00→20:56)
[2018-01-27] MEDS: FOSPHENYTOIN SODIUM 100 MG PE/2 ML VIAL IV SCH ×3 (06:03→21:36)
[2018-01-27 06:32] LABS: ALBUMIN 1.9 GM/DL (3.4-5.0); BICARBONATE 22.4 MEQ/L (21.0-32.0); CALCIUM 7.4 MG/DL (8.5-10.1); CALCIUM-PROTEIN CORRECTED 8.6 MG/DL (8.5-10.1); CREATININE 0.66 MG/DL (0.50-1.00); MAGNESIUM 2.2 MG/DL (1.5-2.5); PHOSPHORUS 1.9 MG/DL (2.5-4.9); TOTAL BILIRUBIN ADULT 0.3 MG/DL (0.2-1.0); TOTAL PROTEIN 4.9 GM/DL (6.4-8.2)
[2018-01-27] MEDS: SODIUM CHLOR 0.9% 1000 ML INJ 1,000 ML IV SCH (07:45)
[2018-01-27] MEDS: CHLORHEXIDINE 0.12% (ORAL KIT) 15 ML CUP MT SCH ×2 (08:00→20:14)
[2018-01-27] MEDS: levETIRAcetam 500 MG/5 ML UDC NG SCH (08:26)
[2018-01-27] MEDS: LANSOPRAZOLE SOLUTAB 30 MG TAB NG SCH (08:26)
[2018-01-27] MEDS: DOCUSATE SODIUM 100 MG/10 ML UDC PO SCH ×2 (08:26→20:15)
[2018-01-27] MEDS: SENNOSIDES SYRUP 8.8 MG/5 ML CUP PO SCH ×2 (08:27→20:15)
[2018-01-27] MEDS: NYSTATIN 100,000 U/GM PWD 15 GM BTL TOPICAL SCH ×2 (08:27→20:56)
[2018-01-27] MEDS: POTASSIUM PHOSPHATE INJ 30 MMOL in SODIUM CHLOR 0.9% 250 ML INJ 250 ML IV PRN (08:27)
[2018-01-27] MEDS: DEXAMETHASONE 4 MG TAB PO SCH ×2 (08:27→20:15)
[2018-01-27] MEDS: INSULIN DETEMIR 100 UNITS/ML VIAL SQ SCH ×2 (08:46→20:15)
--- NOTE | 2018-01-27 12:13 | HHI.CCPN ---
Subjective Remarks/Hospital Course 67-year-old female patient with history of a previous brain mass for which she underwent evaluation. She was after court order because she became aggressive and hostile at home. The patient lives with her mother, who has Alzheimer disease. The CT of the head performed in the emergency department showed an Extra-axial left frontal mass again seen with left to right midline shift, likely related to meningioma. She has undergone another tumor resection by Dr. Herring today. The patient remains postprocedure intubated, also the repeated postoperative CAT scan of the head show significant amount of brain edema. 01/26: FiO2 remains at 75%. Small left pleural effusion/atelectasis noted. Remains on 3% at [address] brain revealed stable cerebral edema with stable hemorrhage. Sedated on propofol drip at 40 mcg/kg/min Subjective 01/27: FiO2 down to 50%. Withdraws to pain bilateral upper and lower extremities. Currently on propofol drip at 45 mcg/kg/min. Tolerating tube feeds. Objective Vital Signs Date Time Temp Pulse Resp B/P (MAP) Pulse Ox O2 Delivery O2 Flow Rate FiO2 01/27/18 10:22 81 119/47 01/27/18 08:15 95 55 01/27/18 08:00 98.5 14 01/27/18 07:00 Mechanical Ventilator Intake and Output 01/27/18 01/27/18 01/28/18 08:00 16:00 00:00 Intake Total 1720 ml 350 ml Output Total 550 ml Balance 1170 ml 350 ml Result Diagram: 01/27/18 0530 01/27/18 0530 Imaging Last Impressions Chest X-Ray 01/27/18 0600 Signed Impressions: Service Date/Time: Saturday, January 27, 2018 04:03 - CONCLUSION: 1. Support apparatus in good position. Basilar airspace disease, left greater than right and small left effusion. Andrey Pearson MD Head CT 01/26/18 1220 Signed Impressions: Service Date/Time: Friday, January 26, 2018 13:48 - CONCLUSION: 1. Slight improvement in acute hemorrhage and edema in the frontal lobe since January 26 exam from earlier today with slightly less mass effect and midline shift. No new hemorrhage. Andrey Pearson MD Head CTA 01/25/18 0000 Signed Impressions: Service Date/Time: Thursday, January 25, 2018 17:59 - CONCLUSION: No acute vascular findings Tommie Solis MD Brain MRI 01/24/18 0000 Signed Impressions: Service Date/Time: December 10:18 - CONCLUSION: Large enhancing mass in the upper left frontal lobe as well as dural enhancement along the base of the skull anterior midline. Vern Boo MD Procedures Left subclavian CVL 01/[address] Baldwin Left radial A-line placed in OR 01/25 Objective Remarks GENERAL: Sedated and intubated female SKIN: Warm and dry. HEAD: Post craniectomy EYES: No scleral icterus. No injection or drainage. NECK: Supple, trachea midline. No JVD or lymphadenopathy. CARDIOVASCULAR: Regular rate and rhythm without murmurs, gallops, or rubs. RESPIRATORY: Breath sounds equal bilaterally. No accessory muscle use. GASTROINTESTINAL: Abdomen soft, non-tender, nondistended. MUSCULOSKELETAL: No cyanosis, or edema. BACK: Nontender without obvious deformity. NEURO EXAM: GCS: 3T Mental Status: The patient is sedated and intubated. Heavily sedated Urinary Catheter: Yes Assessment to: Continue Hills insert reason: Prolonged Immobilization Vascular Central Line Catheter: Yes Assessment to: Continue Date of Insertion: Jan 25, 2018 Line: Central Venous Catheter Side: Left Location: Subclavian A/P Assessment and Plan Neuro/Psych: Postop day #2 bifrontal craniotomy for resection of left parafalcine meningioma , bilateral cribriform plate -Planum sphenoidale meningioma with use of frameless intraoperative stereotactic navigation for planning of the incision site and bone flap and resection of the parafalcine and frontal skull base neoplasm CT brain postoperative 01/25 revealed subcutaneous air/subarachnoid hemorrhage left temporal and right parietal region. 1.8 parenchymal hemorrhage left temporal region. Neuro basilar cisterns. Central sulci are effaced. CT brain 01/26 - Stable he is ventricle hemorrhage and edema in the left frontal and left posterior temporal regions. Slight mass effect left to right shift of the third ventricle measuring 3 mm. No new hemorrhage is identified. There may be slightly less and edema in the frontal lobes on the previous study but the change is minimal. Evaluated by psychiatry Dr. Costa and deemed competent Currently on propofol drip at 45 mcg/kg minute and as needed fentanyl drip for sedation/analgesia while intubated Goal of RASS of -2 Daily sedation vacation when okay with Dr. Herring Remains on 3% hypertonic saline at 20 cc an hour due to cerebral edema. Goal sodium 150-155 Serial sodiums every 6 hours with serum serum osmolalities every 6 hours Remains on dexamethasone at 4 mg IV every 12 hours for brain mass. Management per neurosurgery Levetiracetam 500 mg by tube twice daily CV: Hypertension Written for nicardipine drip and labetalol/clonidine as needed to maintain systolic blood pressure less than 130 Reason for phenylephrine drip to maintain systolic blood pressure greater than 110 Previously on nifedipine 30 mg sustained release daily. Resp: Postoperative respiratory failure [facility] 18/500/11/02/49 Ventilator bundle Albuterol/ipratropium aerosols every 6 hours with albuterol aerosols every 2 hours as needed dyspnea Spontaneous breathing trials when clinically indicated Portable chest x-ray in a.m. 01/28 GI: Patient is currently n.p.o. OG tube to low intermittent wall suction Start tube feeding with Glucerna 1.5 goal 50 cc an hour Lansoprazole 30 mg daily for GI prophylaxis Docusate sodium 100 mg twice daily/senna liquid 8.6 mg twice daily for bowel regimen : Hills catheter has been placed for accurate I's and O's in a critically ill patient Endo: Hyperglycemia of critical illness/steroid induced Continue on low-dose insulin detemir 15 units twice daily. 32 unit sliding scale insulin past 24 hours Sliding scale insulin/moderate regimen with Accu-Cheks every 4 hours to maintain euglycemia Novulog Renal: Creatinine currently within normal limits Monitor urine output Accurate I's and O's Heme: Leukocytosis Monitor CBC daily. Follow trends ID: Monitor for signs and symptoms of infection FEN: Patient is currently on 3% saline at 20 cc an hour Serial sodiums every 6 hours. Goal 150-155 MSK: Physical therapy evaluate and treat Access -Left subclavian CVL placed 01/25 -Right femoral A-line placed 01/26 Prophylaxis -GI -lansoprazole -DVT -SCD/holding pharmacological prophylaxis in light of hemorrhage. Initiate when okay with neurosurgery Critical Care: The total critical care time was 35 minutes. Time to perform other separately billable procedures was not included in the critical care time. Jose Millan MD Jan 27, 2018 12:13
[2018-01-27] MEDS ORDERED: levETIRAcetam INJ 100 ML IV ONE (12:15)
--- NOTE | 2018-01-27 12:27 | HHI.NSPN ---
(Js Nj) History Chief Complaint: Unable to obtain due to patient's clinical condition. (ClemJs) Interval History 01/18: This is a 67-year-old female patient with history of a previous brain mass for which she underwent evaluation. She was brought today to the emergency room after court order because she became aggressive and hostile at home, the patient lives with her mother, who has Alzheimer disease. She has been fighting with her sister and now she is being brought for medical evaluation and psychiatric evaluation. The patient reports that she was previously seen because of a brain tumor and she still has not decided what to do with it. 01/19: Patient history of brain tumor. 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 01/23: The patient is in the bathroom when seen. She is assisted up from the commode and uses a walker to ambulate back to her bed where she sits on the edge of it. She denies any headache or dizziness. She does state that her vision is off but she is not able to describe it any further. She has pain to the right elbow from a fall, otherwise she has no pain to the extremities. She denies any numbness or tingling to the extremities. She does have some difficulty finding the correct word she wants to use. No sensorimotor deficits are noted. 01/24: When seen this afternoon the patient is awake and alert talking with the Range Technician. She does endorse a slight headache this morning but denies any dizziness, visual problems or nausea. She does have some right elbow and left foot pain. She also says that she hurt both knees. Otherwise she has no pain into the extremities and denies any numbness or tingling to them. There is no change in her neuro exam from yesterday. 01/25: The patient went to the operating room for a bifrontal craniotomy for resection of a left parafalcine meningioma and a bilateral cribriform plate- planum sphenoidale meningioma. Post-operatively she was transferred to [facility] for further care and monitoring. 01/26: This morning the patient remains intubated and mechanically ventilated. She is sedated with propofol. A nicardipine drip is infusing for blood pressure control. She did withdraw the right hand and both feet to noxious stimulation upon examination. 01/27: The Cardroom Attendant reported that the patient was having a subclinical seizure seen on the EEG this morning. When the patient was seen the air conditioning equipment mechanic had just completed the EEG and said the patient was having seizures to the right frontal. After being evaluated the patient was noted to have twitching of the first and second digits of the right hand briefly. She remains obtunded and is sedated with propofol. She is also still intubated and mechanically ventilated. She did move both feet to noxious stimulation. (Js Nj) System Review Comments Unable to obtain due to patient's clinical condition. (Js Nj) Exam Results 01/25/18 01/25/18 01/26/18 01/26/18 01/27/18 01/27/18 05:59 17:59 05:59 17:59 05:59 17:59 Intake Total 240 ml 4200 ml 950 ml 1450 ml Output Total 2700 ml 1797 ml 375 ml 690 ml 550 ml Balance 240 ml 1500 ml -1797 ml -375 ml 260 ml 900 ml Intake Oral 240 ml IV Total 4200 ml 950 ml 1450 ml Output Urine Total 1800 ml 1652 ml 325 ml 600 ml 450 ml Drainage Total 200 ml 145 ml 50 ml 90 ml 100 ml Estimated Blood Loss 700 ml # Voids 3 Vital Signs Date Time Temp Pulse Resp B/P (MAP) Pulse Ox O2 Delivery O2 Flow Rate FiO2 01/27/18 10:22 81 119/47 01/27/18 10:00 81 01/27/18 09:45 85 116/46 01/27/18 09:30 85 115/45 01/27/18 09:15 85 120/47 01/27/18 08:27 90 145/62 01/27/18 08:15 95 55 01/27/18 08:00 81 01/27/18 08:00 98.5 82 14 96 138/59 (85) 01/27/18 08:00 65 01/27/18 07:00 Mechanical Ventilator 60 01/27/18 06:00 83 01/27/18 04:40 97 65 01/27/18 04:03 97 65 01/27/18 04:00 65 01/27/18 04:00 98.6 86 18 134/61 (85) 94 134/61 (85) 01/27/18 04:00 86 01/27/18 03:29 85 119/52 01/27/18 02:00 87 01/27/18 01:08 89 121/73 01/27/18 00:00 89 01/27/18 00:00 65 01/27/18 00:00 100.3 94 18 118/58 (78) 94 118/58 (78) 01/26/18 23:44 94 65 01/26/18 23:36 90 121/46 01/26/18 22:00 94 01/26/18 20:27 105 141/55 01/26/18 20:18 94 65 01/26/18 20:00 98 01/26/18 20:00 97.0 98 18 109/53 (71) 98 109/53 (71) 01/26/18 18:00 98.5 96 18 125/57 (79) 94 01/26/18 18:00 87 01/26/18 17:42 97 01/26/18 17:24 96 65 01/26/18 16:00 87 01/26/18 15:05 92 144/63 01/26/18 14:00 87 01/26/18 13:50 100 100 01/26/18 12:21 93 65 01/26/18 12:00 87 01/26/18 12:00 98.4 102 16 110/76 (87) 100 01/26/18 10:52 93 132/63 01/26/18 10:10 95 65 01/26/18 10:00 87 01/26/18 08:00 87 01/26/18 08:00 98.4 110 16 104/64 (77) 100 01/26/18 07:00 100 65 01/26/18 06:00 87 01/26/18 05:00 100 100 01/26/18 04:22 75 131/60 01/26/18 04:00 98.6 72 18 100 132/64 (86) 01/26/18 04:00 72 01/26/18 02:00 80 3/31/18 00:24 100 75 01/26/18 00:00 98.3 76 18 100 131/70 (90) 01/26/18 00:00 76 01/25/18 22:00 73 01/25/18 20:13 100 90 01/25/18 20:00 97.8 68 18 100 130/70 (90) 01/25/18 20:00 73 01/25/18 19:02 97 50 01/25/18 04:52 97.7 69 17 141/67 (91) 96 01/25/18 00:52 97.5 72 17 142/89 (106) 96 01/24/18 21:03 98.4 85 17 115/65 (82) 94 01/24/18 16:00 97.9 78 18 131/70 (90) 93 (Js Nj) Physical Examination GENERAL: Obtunded, intubated & mechanically ventilated, propofol infusing at 50 mcg/kg/min for sedation. No apparent distress but twitching noted of right hand 1st & 2nd digits briefly. Sedation held for evaluation. HEENT: Normocephalic. Bilateral craniotomy surgical incision well-approximated w /karolina w/o any evident drainage, erythema or streaking, DIANN drain to bulb suction w/serosanguinous drainage. PERRLA 3 mm. Orally intubated, OGT. MUSCULOSKELETAL: Moved both feet to noxious stimulation. NEUROLOGICAL: Obtunded, sedated but held for evaluation. Nonverbal, orally intubated. No eye opening to any stimulation. Did not follow any commands. Withdrew both feet to local & central noxious stimulation. Brief twitching of the right hand 1st & 2nd digits. 3% hypertonic saline infusing at 20 mL/hr. (Js Nj) Lab, Micro, Other Results Recent Impressions Chest X-Ray 01/27/18 0600 Signed Impressions: Service Date/Time: Saturday, January 27, 2018 04:03 - CONCLUSION: 1. Support apparatus in good position. Basilar airspace disease, left greater than right and small left effusion. Andrey Pearson MD Head CT 01/26/18 1220 Signed Impressions: Service Date/Time: Friday, January 26, 2018 13:48 - CONCLUSION: 1. Slight improvement in acute hemorrhage and edema in the frontal lobe since March 31 exam from earlier today with slightly less mass effect and midline shift. No new hemorrhage. Andrey Pearson MD Head CT 01/26/18 0600 Signed Impressions: Service Date/Time: Friday, January 26, 2018 05:08 - CONCLUSION: Stable he is ventricle hemorrhage and edema in the left frontal and left posterior temporal regions. Slight mass effect left to right shift of the third ventricle measuring 3 mm. No new hemorrhage is identified. There may be slightly less and edema in the frontal lobes on the previous study but the change is minimal. Matias Simpson MD Head CTA 01/25/18 0000 Signed Impressions: Service Date/Time: Thursday, January 25, 2018 17:59 - CONCLUSION: No acute vascular findings Tommie Solis MD Head CT 01/25/18 0000 Signed Impressions: Service Date/Time: Thursday, January 25, 2018 17:59 - CONCLUSION: Status post frontal craniotomy with postsurgical change in the medial left frontal lobe in the region of previous seen mass. There is mild subdural air and hemorrhage seen in the frontal regions. There is subarachnoid hemorrhage seen in the left temporal lobe and to a lesser degree right parietal lobe. There is a focal 1.8 cm parenchymal hemorrhage seen in the posterior left temporal lobe. The basal cisterns are very narrowed. The cortical sulci are effaced. Much of the mass effect was present previously. Tommie Trujillo MD Chest X-Ray 01/25/18 0000 Signed Impressions: Service Date/Time: Thursday, January 25, 2018 19:51 - CONCLUSION: 1. Left subclavian line in good position. 2. Left base consolidation, atelectasis and/ or effusion. Tommie Trujillo MD Laboratory Tests Test 01/24/18 21:35 01/25/18 13:32 01/25/18 20:20 01/26/18 03:30 White Blood Count 15.3 TH/MM3 21.4 TH/MM3 17.6 TH/MM3 Red Blood Count 5.15 MIL/MM3 4.30 MIL/MM3 3.98 MIL/MM3 Hemoglobin 15.2 GM/DL 12.7 GM/DL 11.9 GM/DL Hematocrit 44.6 % 37.4 % 34.6 % Mean Corpuscular Volume 86.6 FL 87.0 FL 86.9 FL Mean Corpuscular Hemoglobin 29.4 PG 29.6 PG 30.0 PG Mean Corpuscular Hemoglobin Concent 34.0 % 34.1 % 34.5 % Red Cell Distribution Width 13.5 % 13.6 % 13.7 % Platelet Count 214 TH/MM3 216 TH/MM3 192 TH/MM3 Mean Platelet Volume 7.2 FL 7.1 FL 7.3 FL Neutrophils (%) (Auto) 90.6 % 93.6 % 91.8 % Lymphocytes (%) (Auto) 3.7 % 2.3 % 3.3 % Monocytes (%) (Auto) 4.6 % 3.8 % 4.6 % Eosinophils (%) (Auto) 1.1 % 0.0 % 0.0 % Basophils (%) (Auto) 0.0 % 0.3 % 0.3 % Neutrophils # (Auto) 13.9 TH/MM3 20.0 TH/MM3 16.2 TH/MM3 Lymphocytes # (Auto) 0.6 TH/MM3 0.5 TH/MM3 0.6 TH/MM3 Monocytes # (Auto) 0.7 TH/MM3 0.8 TH/MM3 0.8 TH/MM3 Eosinophils # (Auto) 0.2 TH/MM3 0.0 TH/MM3 0.0 TH/MM3 Basophils # (Auto) 0.0 TH/MM3 0.1 TH/MM3 0.0 TH/MM3 CBC Comment DIFF FINAL AUTO DIFF AUTO DIFF Differential Comment FINAL DIFF MANUAL FINAL DIFF MANUAL Prothrombin Time 10.8 SEC 11.1 SEC 10.7 SEC Prothromb Time International Ratio 1.1 RATIO 1.1 RATIO 1.1 RATIO Activated Partial Thromboplast Time 20.5 SEC 18.7 SEC 19.1 SEC Blood Urea Nitrogen 26 MG/DL 20 MG/DL 20 MG/DL Creatinine 0.99 MG/DL 0.89 MG/DL 0.92 MG/DL Random Glucose 298 MG/DL 293 MG/DL 270 MG/DL Calcium Level 9.4 MG/DL 7.8 MG/DL 7.7 MG/DL Sodium Level 134 MEQ/L 138 MEQ/L 141 MEQ/L Potassium Level 4.3 MEQ/L 3.7 MEQ/L 3.7 MEQ/L Chloride Level 97 MEQ/L 99 MEQ/L 103 MEQ/L Carbon Dioxide Level 24.2 MEQ/L 24.9 MEQ/L 22.5 MEQ/L Anion Gap 13 MEQ/L 14 MEQ/L 16 MEQ/L Estimat Glomerular Filtration Rate 56 ML/MIN 63 ML/MIN 61 ML/MIN Blood Gas Puncture Site DRAWN IN OR Blood Gas Patient Temperature 98.6 Blood Gas HCO3 25 mmol/L Blood Gas Base Excess 1.4 mmol/L Blood Gas Oxygen Saturation 97 % Arterial Blood pH 7.43 Arterial Blood Partial Pressure CO2 39 mmHg Arterial Blood Partial Pressure O2 205 mmHg Arterial Blood Oxygen Content 17.6 Vol % Arterial Blood Carboxyhemoglobin 0.9 % Arterial Blood Methemoglobin 1.7 % Blood Gas Hemoglobin 12.7 G/DL Oxygen Delivery Device OR Differential Total Cells Counted 100 100 Neutrophils % (Manual) 90 % 88 % Band Neutrophils % 8 % 5 % Lymphocytes % 1 % 2 % Monocytes % 1 % 5 % Neutrophils # (Manual) 21.0 TH/MM3 16.4 TH/MM3 Platelet Estimate NORMAL NORMAL Platelet Morphology Comment NORMAL NORMAL Nucleated Red Blood Cells 1 /100 WBC Test 01/26/18 10:03 01/26/18 11:30 01/26/18 18:30 01/26/18 20:19 Blood Gas Puncture Site LT BRACHIAL Blood Gas Patient Temperature 98.6 Blood Gas HCO3 22 mmol/L Blood Gas Base Excess -0.8 mmol/L Blood Gas Oxygen Saturation 92 % Arterial Blood pH 7.47 Arterial Blood Partial Pressure CO2 31 mmHg Arterial Blood Partial Pressure O2 67 mmHg Arterial Blood Oxygen Content 16.4 Vol % Arterial Blood Carboxyhemoglobin 0.8 % Arterial Blood Methemoglobin 1.2 % Blood Gas Hemoglobin 12.7 G/DL Oxygen Delivery Device VENTILATOR Blood Gas Ventilator Setting Blood Gas Inspired Oxygen 65 % Sodium Level 143 MEQ/L 143 MEQ/L Serum Osmolality 310 MOSM/KG 313 MOSM/KG Urine Color YELLOW Urine Turbidity CLEAR Urine pH 5.5 Urine Specific [place] 1.026 Urine Protein TRACE mg/dL Urine Glucose (UA) 1000 mg/dL Urine Ketones 10 mg/dL Urine Occult Blood NEG Urine Nitrite NEG Urine Bilirubin NEG Urine Urobilinogen LESS THAN 2.0 MG/DL Urine Leukocyte Esterase NEG Urine RBC 2 /hpf Urine WBC 3 /hpf Urine Squamous Epithelial Cells <1 /hpf Urine Uric Acid Crystals RARE /hpf Urine Hyaline Casts 2 /lpf Urine Mucus FEW /lpf Microscopic Urinalysis Comment CULT NOT INDICATED Test 01/26/18 23:43 01/27/18 04:24 01/27/18 05:30 Sodium Level 144 MEQ/L 144 MEQ/L Serum Osmolality 305 MOSM/KG 308 MOSM/KG Blood Gas Puncture Site ART LINE Blood Gas Patient Temperature 98.6 Blood Gas HCO3 21 mmol/L Blood Gas Base Excess -1.0 mmol/L Blood Gas Oxygen Saturation 95 % Arterial Blood pH 7.54 Arterial Blood Partial Pressure CO2 25 mmHg Arterial Blood Partial Pressure O2 82 mmHg Arterial Blood Oxygen Content 15.2 Vol % Arterial Blood Carboxyhemoglobin 1.0 % Arterial Blood Methemoglobin 1.4 % Blood Gas Hemoglobin 11.4 G/DL Oxygen Delivery Device VENTILATOR Blood Gas Ventilator Setting PRVC/AC Blood Gas Inspired Oxygen 65 % White Blood Count 17.5 TH/MM3 Red Blood Count 3.20 MIL/MM3 Hemoglobin 9.9 GM/DL Hematocrit 28.3 % Mean Corpuscular Volume 88.3 FL Mean Corpuscular Hemoglobin 30.8 PG Mean Corpuscular Hemoglobin Concent 34.8 % Red Cell Distribution Width 13.4 % Platelet Count 185 TH/MM3 Mean Platelet Volume 7.6 FL Neutrophils (%) (Auto) 93.5 % Lymphocytes (%) (Auto) 3.3 % Monocytes (%) (Auto) 3.0 % Eosinophils (%) (Auto) 0.0 % Basophils (%) (Auto) 0.2 % Neutrophils # (Auto) 16.3 TH/MM3 Lymphocytes # (Auto) 0.6 TH/MM3 Monocytes # (Auto) 0.5 TH/MM3 Eosinophils # (Auto) 0.0 TH/MM3 Basophils # (Auto) 0.0 TH/MM3 CBC Comment AUTO DIFF Differential Comment AUTO DIFF CONFIRMED Blood Urea Nitrogen 18 MG/DL Creatinine 0.66 MG/DL Random Glucose 257 MG/DL Total Protein 4.9 GM/DL Albumin 1.9 GM/DL Calcium Level 7.4 MG/DL Phosphorus Level 1.9 MG/DL Magnesium Level 2.2 MG/DL Alkaline Phosphatase 30 U/L Aspartate Amino Transf (AST/SGOT) 13 U/L Alanine Aminotransferase (ALT/SGPT) 17 U/L Total Bilirubin 0.3 MG/DL Potassium Level 3.4 MEQ/L Chloride Level 112 MEQ/L Carbon Dioxide Level 22.4 MEQ/L Anion Gap 10 MEQ/L Estimat Glomerular Filtration Rate 89 ML/MIN Protein Corrected Calcium 8.6 MG/DL (Js Nj) Medical Decision Making Impression and Plan Impression: 1. Large frontal neoplasm noted on CT scan and previous MRI imaging. 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 Postoperative Diagnosis: (1) Meningioma, multiple (2) Parasagittal meningioma 1. Recurrent left parafalcine meningioma 2. Bilateral cribriform plate-planum sphenoidale meningioma Patient remains intubated & sedated. She did withdraw the both feet to noxious stimulation. Brief twitching of right hand digits. EEG w/right frontal seizures per Cardroom Attendant & coordinator of evaluation. T max 100.3 the past 24 hrs. Reviewed labs for today. Leukocytosis essentially stable. Drop in haemoglobin level. Sodium 144. Hypokalemia. Improvement in eGFR. Hypophosphatemia. CT brain demonstrates stable left frontal & posterior temporal region ventricular haemorrhage & edema w/slight mass effect [id number] shift of third ventricle measuring 3 mm. No new haemorrhage identified. DIANN drain with 190 mL for the past 24 hrs as of shift change this morning. POD #2 () s/p: Bifrontal craniotomy for resection 1. Left parafalcine meningioma 2. Bilateral cribriform plate -Planum sphenoidale meningioma 3. Use of frameless intraoperative stereotactic navigation for planning of the incision site and bone flap and resection of the parafalcine and frontal skull base neoplasm. Plan: Primary management per Hospitalist. Critical care management per Cardroom Attendant. Neuro checks. Stat CT brain for any decline in neuro status. Monitor DIANN drain output. Maintain SBP between 110 and 140 mm Hg. Levetiracetam & fosphenytoin for seizures. (Js Nj) Attending Statement The exam, history, and the medical decision-making described in the above note were completed with the assistance of the mid-level provider. I reviewed and agree with the findings presented. I attest that I had a [id number] encounter with the patient on the same day, and personally performed and documented my assessment and findings in the medical record. He remains mostly unresponsive on examination for 118. Remains with right greater than left sluggish pupils. No posturing. EEG with positive seizure focus. Remains on Keppra and Dilantin. Neurology following Will likely need additional anticonvulsant coverage. (Tolu Herring MD) Js Nj Jan 27, 2018 12:27 Tolu Herring MD Jan 31, 2018 14:13
[2018-01-27] MEDS: fentaNYL DRIP 250 ML IV PRN (12:45)
[2018-01-27] MEDS ORDERED: PHENYLEPHRINE HCL 10 MG/ML VIAL ONE (17:13)
[2018-01-27] MEDS: POTASSIUM CHLOR 20 MEQ PREMIX 100 ML IV PRN (17:19)
[2018-01-27] MEDS: 3% SALINE INJ 500 ML IV PRN (18:14)
[2018-01-27 19:01] LABS: PHOSPHORUS 2.7 MG/DL (2.5-4.9)
--- NOTE | 2018-01-27 19:30 | MG ---
cc: Campbell Lockwood MD, PhD TEST NUMBER: [id number] TECHNIQUE: A 17-channel EEG. DESCRIPTION: The background rhythm reveals generalized slowing in the theta and delta frequencies. There is frequent spike and wave discharges identified over the right hemisphere, the right frontotemporal area. This occurs every 2-3 seconds throughout the tracing. No other lateralizing features are identified. INTERPRETATION: Abnormal study. There is evidence of a seizure focus in mainly the right frontal area, which has frequent intermittent discharges throughout the tracing. Campbell Lockwood MD, PhD MAYTE/JOAHN , 07:21 PM , 07:30 PM
[2018-01-27] MEDS ORDERED: levETIRAcetam INJ 100 ML IV SCH (21:00)
[2018-01-27] MEDS ORDERED: levETIRAcetam 500 MG/NS 100 ML IV SCH ×2 (21:00)
[2018-01-27] MEDS ORDERED: levETIRAcetam INJ 500 MG in SODIUM CHLORIDE 0.9% INJ 100 ML IV SCH (21:00)
--- NOTE | 2018-01-27 21:18 | MB ---
cc: Campbell Lockwood MD, PhD DATE: 01/27/2018 REASON FOR CONSULTATION: Abnormal EEG. HISTORY OF PRESENT ILLNESS: Ms. Keller is a 67-year-old woman who is admitted for aggressive behavior. CT is showing a left frontal mass with left to right midline shift, likely a meningioma. MRI of the brain revealed large enhancing mass in the upper left frontal lobe with dural enhancement along the base consistent with meningioma. She underwent surgical resection of the tumor on 01/25. She had a bifrontal craniotomy for resection of left parafalcine meningioma and bilateral cribriform plate, planum sphenoidale meningioma. The patient was noted to have some right-sided twitching. An EEG was obtained and showed epileptiform discharges very frequently throughout the tracing in the left frontal area. She had a head CT postoperatively on 01/26 showing some intraparenchymal hemorrhage in the posterior left temporal region and throughout the left frontal lobe with edema, mass effect, with ventricular hemorrhage. She did have a head CT showing no vascular abnormality. CURRENT MEDICATIONS: Keppra 500 mg IV q. 12 hours. She is on Cerebyx 100 mg IV q. 8 hours. The Cerebyx was started yesterday. Keppra added today. She also is on insulin, fentanyl, Prevacid 30 mg daily, Colace, senna, magnesium sulfate, phenylephrine, labetalol p.r.n. NEUROLOGIC EXAMINATION: VITAL SIGNS: Blood pressure is 143/51, pulse 72, temperature 97.6 degrees. HIGHER CORTICAL FUNCTION: She is nonresponsive. CRANIAL NERVES: Pupils equal and reactive. MOTOR: She has no spontaneous limb movements. I do not see any tonic-clonic activity. IMPRESSION: Status post excision of left frontal meningioma and cribriform plate meningioma with seizure focus, left hemisphere. RECOMMENDATION: I would like to increase the Keppra dose to 1000 mg q. 8 hours. Will check a stat phenytoin level as well. Repeat EEG in the morning. Campbell Lockwood MD, PhD MAYTE/JOHAN , 08:54 PM , 09:17 PM
[2018-01-27] MEDS ORDERED: levETIRAcetam INJ 1,000 MG in SODIUM CHLORIDE 0.9% INJ 100 ML IV SCH (22:00)
[2018-01-27] MEDS ORDERED: levETIRAcetam 500 MG/NS 100 ML IV ONE ×2 (22:15)
[2018-01-28] VITALS (19 sets, daily range): BP systolic 103–140; BP diastolic 55–72; PULSE 52–66; RESP 14; TEMP 97.5–98.5; O2SAT 96–100
[2018-01-28] MEDS: INSULIN ASPART SUPPLEMENTAL SCALE SQ SCH ×6 (01:26→20:00)
[2018-01-28] MEDS: PROPOFOL 1000 MG/100 ML INJ 100 ML IV PRN ×6 (02:22→23:51)
[2018-01-28] MEDS: RESP: ALBUTEROL 2.5 MG/IPRATROPIUM 0.5 MG NEB (SCH) NEB ×4 (03:07→19:46)
[2018-01-28 04:42] LABS: HEMATOCRIT 25.9 % (35.0-46.0); MEAN CELL VOLUME 87.6 FL (80.0-100.0); MEAN CORPUSCULAR HEMOGLOBIN 30.6 PG (27.0-34.0); MEAN PLATELET VOLUME 7.4 FL (7.0-11.0); PLATELET COUNT 223 TH/MM3 (150-450); RED BLOOD COUNT 2.96 MIL/MM3 (4.00-5.30); RED CELL DISTRIBUTION WIDTH 13.8 % (11.6-17.2); WHITE BLOOD COUNT 19.3 TH/MM3 (4.0-11.0)
[2018-01-28 05:26] LABS: ALBUMIN 1.8 GM/DL (3.4-5.0); ALT (GPT) 18 U/L (10-53); AST (GOT) 13 U/L (15-37); BICARBONATE 23.3 MEQ/L (21.0-32.0); BLOOD UREA NITROGEN 16 MG/DL (7-18); CALCIUM 7.7 MG/DL (8.5-10.1); CHLORIDE 117 MEQ/L (98-107); GLOMERULAR FILTRATION RATE 159 ML/MIN (>89); GLUCOSE,RANDOM 197 MG/DL (74-106); MAGNESIUM 2.3 MG/DL (1.5-2.5); PHOSPHORUS 2.1 MG/DL (2.5-4.9); SODIUM (NA) 149 MEQ/L (136-145)
[2018-01-28 05:28] LABS: ALKALINE PHOSPHATASE 33 U/L (45-117); PHENYTOIN (DILANTIN) 17.9 MCG/ML (10.0-20.0); TOTAL BILIRUBIN ADULT 0.2 MG/DL (0.2-1.0); TOTAL PROTEIN 4.9 GM/DL (6.4-8.2)
[2018-01-28] MEDS: levETIRAcetam INJ 100 ML IV SCH ×3 (05:34→22:38)
[2018-01-28] MEDS: FOSPHENYTOIN SODIUM 100 MG PE/2 ML VIAL IV SCH ×3 (05:35→22:38)
[2018-01-28] MEDS: ARTIFICIAL TEARS OPTH SOLN 15 ML BTL EACH EYE SCH ×3 (05:35→22:00)
[2018-01-28 05:48] LABS: BANDS 4 % (0-6); LYMPHOCYTES 5 % (9-44); METAMYELOCYTES 1 % (0-1); MONOCYTES 2 % (0-8); MYELOCYTES 1 % (0-0); NEUTROPHIL # MANUAL DIFF 17.9 TH/MM3 (1.8-7.7); POLYS (SEG NEUTROPHILS) 87 % (16-70)
[2018-01-28 05:51] LABS: POLYCHROMASIA 2.1 % (0.0-1.9)
--- NOTE | 2018-01-28 06:07 | RADRPT ---
EXAM DATE/TIME: 01/28/2018 03:50 [facility] COMPARISON: CHEST SINGLE AP, January 27, 2018, 4:03. INDICATIONS : Short of breath, respiratory failure MEDICAL HISTORY : dementia, brain mass SURGICAL HISTORY : Craniotomy. ENCOUNTER: Subsequent ACUITY: 1 week PAIN SCORE: Non-responsive. LOCATION: Bilateral chest FINDINGS: Endotracheal tube, nasogastric tube and left subclavian central line are stable aerated persistent co nsolidation in the left lung base. Right lung remains grossly clear urine cardiac contours are unchan ged accounting for differences in projection. CONCLUSION: No significant interval change Tommie Solis MD on January 28, 2018 at 6:04 Board Certified Radiologist. This report was verified electronically.
[2018-01-28] MEDS: CHLORHEXIDINE 0.12% (ORAL KIT) 15 ML CUP MT SCH ×2 (08:00→20:00)
[2018-01-28] MEDS: NYSTATIN 100,000 U/GM PWD 15 GM BTL TOPICAL SCH ×2 (09:00→21:00)
[2018-01-28] MEDS: INSULIN DETEMIR 100 UNITS/ML VIAL SQ SCH ×2 (09:08→21:24)
[2018-01-28] MEDS: DOCUSATE SODIUM 100 MG/10 ML UDC PO SCH ×2 (09:08→20:41)
[2018-01-28] MEDS: SENNOSIDES SYRUP 8.8 MG/5 ML CUP PO SCH ×2 (09:08→20:41)
[2018-01-28] MEDS: DEXAMETHASONE 4 MG TAB PO SCH ×2 (09:08→20:41)
[2018-01-28] MEDS: LANSOPRAZOLE SOLUTAB 30 MG TAB NG SCH (09:08)
[2018-01-28] MEDS: POTASSIUM PHOSPHATE INJ 30 MMOL in SODIUM CHLOR 0.9% 250 ML INJ 250 ML IV PRN (09:09)
[2018-01-28] MEDS: PHENYLEPHRINE INJ 40 MG in SODIUM CHLORID 0.9% 500 ML INJ 496 ML IV PRN (09:10)
--- NOTE | 2018-01-28 09:32 | HHI.NSPN ---
(Js Nj) History Chief Complaint: Unable to obtain due to patient's clinical condition. (ClemJs) Interval History 01/18: This is a 67-year-old female patient with history of a previous brain mass for which she underwent evaluation. She was brought today to the emergency room after court order because she became aggressive and hostile at home, the patient lives with her mother, who has Alzheimer disease. She has been fighting with her sister and now she is being brought for medical evaluation and psychiatric evaluation. The patient reports that she was previously seen because of a brain tumor and she still has not decided what to do with it. 01/19: Patient history of brain tumor. 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 01/23: The patient is in the bathroom when seen. She is assisted up from the commode and uses a walker to ambulate back to her bed where she sits on the edge of it. She denies any headache or dizziness. She does state that her vision is off but she is not able to describe it any further. She has pain to the right elbow from a fall, otherwise she has no pain to the extremities. She denies any numbness or tingling to the extremities. She does have some difficulty finding the correct word she wants to use. No sensorimotor deficits are noted. 01/24: When seen this afternoon the patient is awake and alert talking with the Hatchery Attendant. She does endorse a slight headache this morning but denies any dizziness, visual problems or nausea. She does have some right elbow and left foot pain. She also says that she hurt both knees. Otherwise she has no pain into the extremities and denies any numbness or tingling to them. There is no change in her neuro exam from yesterday. 01/25: The patient went to the operating room for a bifrontal craniotomy for resection of a left parafalcine meningioma and a bilateral cribriform plate- planum sphenoidale meningioma. Post-operatively she was transferred to [facility] for further care and monitoring. 01/26: This morning the patient remains intubated and mechanically ventilated. She is sedated with propofol. A nicardipine drip is infusing for blood pressure control. She did withdraw the right hand and both feet to noxious stimulation upon examination. 01/27: The Proof Operator reported that the patient was having a subclinical seizure seen on the EEG this morning. When the patient was seen the mortgage protection sales had just completed the EEG and said the patient was having seizures to the right frontal. After being evaluated the patient was noted to have twitching of the first and second digits of the right hand briefly. She remains obtunded and is sedated with propofol. She is also still intubated and mechanically ventilated. She did move both feet to noxious stimulation. 01/28: No seizure activity noted when seen this morning. She continues to be obtunded but maximally sedated with propofol. She is still intubated and mechanically ventilated. She moved only the lower extremities slightly to local noxious stimulation and had partial left eye opening with central noxious stimulation. She was evaluated by Neurology yesterday who adjusted her antiepileptic medication. Another EEG is to be done this morning. (Js Nj) System Review Comments Unable to obtain due to patient's clinical condition. (Js Nj) Exam Results 01/26/18 01/26/18 01/27/18 01/27/18 01/28/18 01/28/18 06:00 18:00 06:00 18:00 06:00 18:00 Intake Total 950 ml 2235 ml 1635 ml Output Total 2172 ml 690 ml 550 ml 760 ml 650 ml Balance -2172 ml -690 ml 400 ml 1475 ml 985 ml IV Total 950 ml 1900 ml 1200 ml Tube Feeding 235 ml 375 ml Tube Irrigant 100 ml Other 60 ml Output Urine Total 1977 ml 600 ml 450 ml 700 ml 600 ml Drainage Total 195 ml 90 ml 100 ml 60 ml 50 ml # Bowel Movements 0 0 Vital Signs Date Time Temp Pulse Resp B/P (MAP) Pulse Ox O2 Delivery O2 Flow Rate FiO2 01/28/18 09:10 56 122/70 01/28/18 08:32 98 40 01/28/18 08:00 40 01/28/18 08:00 97.7 56 14 122/72 (89) 98 01/28/18 08:00 57 01/28/18 07:00 97 Mechanical Ventilator 40 01/28/18 06:00 66 01/28/18 04:00 40 01/28/18 04:00 62 01/28/18 04:00 98.5 62 14 100 140/55 (83) 01/28/18 03:10 96 40 01/28/18 02:00 62 01/28/18 00:20 97 40 01/28/18 00:00 97.5 64 14 96 138/66 (90) 01/28/18 00:00 50 01/28/18 00:00 64 01/27/18 22:00 68 01/27/18 20:00 82 01/27/18 20:00 50 01/27/18 20:00 98.4 82 14 96 116/48 (70) 01/27/18 19:50 95 50 01/27/18 19:00 96 Mechanical Ventilator 50 01/27/18 18:41 75 135/55 01/27/18 18:30 72 143/51 01/27/18 18:00 72 01/27/18 17:18 74 114/45 01/27/18 16:52 95 50 01/27/18 16:00 97.6 73 14 94 106/43 (64) 01/27/18 16:00 65 01/27/18 16:00 73 01/27/18 14:00 78 01/27/18 13:02 93 50 01/27/18 12:00 96 01/27/18 12:00 65 01/27/18 12:00 98.5 96 14 95 136/57 (83) 01/27/18 11:38 94 55 01/27/18 10:22 81 119/47 01/27/18 10:00 81 01/27/18 09:45 85 116/46 01/27/18 09:30 85 115/45 01/27/18 09:15 85 120/47 01/27/18 08:27 90 145/62 01/27/18 08:15 95 55 01/27/18 08:00 81 01/27/18 08:00 98.5 82 14 96 138/59 (85) 01/27/18 08:00 65 01/27/18 07:00 Mechanical Ventilator 60 01/27/18 06:00 83 01/27/18 04:40 97 65 4/1/18 04:03 97 65 01/27/18 04:00 65 01/27/18 04:00 98.6 86 18 134/61 (85) 94 134/61 (85) 01/27/18 04:00 86 01/27/18 03:29 85 119/52 01/27/18 02:00 87 01/27/18 01:08 89 121/73 01/27/18 00:00 89 01/27/18 00:00 65 01/27/18 00:00 100.3 94 18 118/58 (78) 94 118/58 (78) 01/26/18 23:44 94 65 01/26/18 23:36 90 121/46 01/26/18 22:00 94 01/26/18 20:27 105 141/55 01/26/18 20:18 94 65 01/26/18 20:00 98 01/26/18 20:00 97.0 98 18 109/53 (71) 98 109/53 (71) 01/26/18 18:00 98.5 96 18 125/57 (79) 94 01/26/18 18:00 87 01/26/18 17:42 97 01/26/18 17:24 96 65 01/26/18 16:00 87 01/26/18 15:05 92 144/63 01/26/18 14:00 87 01/26/18 13:50 100 100 01/26/18 12:21 93 65 01/26/18 12:00 87 01/26/18 12:00 98.4 102 16 110/76 (87) 100 01/26/18 10:52 93 132/63 01/26/18 10:10 95 65 01/26/18 10:00 87 01/26/18 08:00 87 01/26/18 08:00 98.4 110 16 104/64 (77) 100 01/26/18 07:00 100 65 01/26/18 06:00 87 01/26/18 05:00 100 100 01/26/18 04:22 75 131/60 01/26/18 04:00 98.6 72 18 100 132/64 (86) 01/26/18 04:00 72 01/26/18 02:00 80 01/26/18 00:24 100 75 01/26/18 00:00 98.3 76 18 100 131/70 (90) 01/26/18 00:00 76 01/25/18 22:00 73 01/25/18 20:13 100 90 01/25/18 20:00 97.8 68 18 100 130/70 (90) 01/25/18 20:00 73 01/25/18 19:02 97 50 (Js Nj) Physical Examination GENERAL: Obtunded, intubated & mechanically ventilated, propofol infusing at 50 mcg/kg/min for sedation. No apparent distress. HEENT: Normocephalic. Bilateral craniotomy surgical incision well-approximated w /karolina w/o any evident drainage, erythema or streaking, DIANN drain to bulb suction w/serosanguinous drainage. PERRLA 3 mm and sluggish. Orally intubated, OGT. MUSCULOSKELETAL: Moved BLE to noxious stimulation. NEUROLOGICAL: Obtunded, sedated w/propofol. Nonverbal, orally intubated. Partial left eye opening to central noxious stimulation. Did not follow any commands. Slight withdrawal of BLE to local noxious stimulation. 3% hypertonic saline infusing at 20 mL/hr. (Js Nj) Lab, Micro, Other Results Recent Impressions Chest X-Ray 01/28/18599 Signed Impressions: Service Date/Time: Sunday, January 28, 2018 03:50 - CONCLUSION: No significant interval change Tommie Solis MD Chest X-Ray 01/27/18 06 Signed Impressions: Service Date/Time: Saturday, January 27, 2018 04:03 - CONCLUSION: 1. Support apparatus in good position. Basilar airspace disease, left greater than right and small left effusion. Andrey Pearson MD Head CT 01/26/18 1220 Signed Impressions: Service Date/Time: Friday, January 26, 2018 13:48 - CONCLUSION: 1. Slight improvement in acute hemorrhage and edema in the frontal lobe since January 26 exam from earlier today with slightly less mass effect and midline shift. No new hemorrhage. Andrey Pearson MD Head CT 01/26/18 0600 Signed Impressions: Service Date/Time: Friday, January 26, 2018 05:08 - CONCLUSION: Stable he is ventricle hemorrhage and edema in the left frontal and left posterior temporal regions. Slight mass effect left to right shift of the third ventricle measuring 3 mm. No new hemorrhage is identified. There may be slightly less and edema in the frontal lobes on the previous study but the change is minimal. Matias Simpson MD Laboratory Tests Test 01/25/18 13:32 01/25/18 20:20 01/26/18 03:30 01/26/18 10:03 Blood Gas Puncture Site DRAWN IN OR LT BRACHIAL Blood Gas Patient Temperature 98.6 98.6 Blood Gas HCO3 25 mmol/L 22 mmol/L Blood Gas Base Excess 1.4 mmol/L -0.8 mmol/L Blood Gas Oxygen Saturation 97 % 92 % Arterial Blood pH 7.43 7.47 Arterial Blood Partial Pressure CO2 39 mmHg 31 mmHg Arterial Blood Partial Pressure O2 205 mmHg 67 mmHg Arterial Blood Oxygen Content 17.6 Vol % 16.4 Vol % Arterial Blood Carboxyhemoglobin 0.9 % 0.8 % Arterial Blood Methemoglobin 1.7 % 1.2 % Blood Gas Hemoglobin 12.7 G/DL 12.7 G/DL Oxygen Delivery Device OR VENTILATOR White Blood Count 21.4 TH/MM3 17.6 TH/MM3 Red Blood Count 4.30 MIL/MM3 3.98 MIL/MM3 Hemoglobin 12.7 GM/DL 11.9 GM/DL Hematocrit 37.4 % 34.6 % Mean Corpuscular Volume 87.0 FL 86.9 FL Mean Corpuscular Hemoglobin 29.6 PG 30.0 PG Mean Corpuscular Hemoglobin Concent 34.1 % 34.5 % Red Cell Distribution Width 13.6 % 13.7 % Platelet Count 216 TH/MM3 192 TH/MM3 Mean Platelet Volume 7.1 FL 7.3 FL Neutrophils (%) (Auto) 93.6 % 91.8 % Lymphocytes (%) (Auto) 2.3 % 3.3 % Monocytes (%) (Auto) 3.8 % 4.6 % Eosinophils (%) (Auto) 0.0 % 0.0 % Basophils (%) (Auto) 0.3 % 0.3 % Neutrophils # (Auto) 20.0 TH/MM3 16.2 TH/MM3 Lymphocytes # (Auto) 0.5 TH/MM3 0.6 TH/MM3 Monocytes # (Auto) 0.8 TH/MM3 0.8 TH/MM3 Eosinophils # (Auto) 0.0 TH/MM3 0.0 TH/MM3 Basophils # (Auto) 0.1 TH/MM3 0.0 TH/MM3 CBC Comment AUTO DIFF AUTO DIFF Differential Total Cells Counted 100 100 Neutrophils % (Manual) 90 % 88 % Band Neutrophils % 8 % 5 % Lymphocytes % 1 % 2 % Monocytes % 1 % 5 % Neutrophils # (Manual) 21.0 TH/MM3 16.4 TH/MM3 Differential Comment FINAL DIFF MANUAL FINAL DIFF MANUAL Platelet Estimate NORMAL NORMAL Platelet Morphology Comment NORMAL NORMAL Prothrombin Time 11.1 SEC 10.7 SEC Prothromb Time International Ratio 1.1 RATIO 1.1 RATIO Activated Partial Thromboplast Time 18.7 SEC 19.1 SEC Blood Urea Nitrogen 20 MG/DL 20 MG/DL Creatinine 0.89 MG/DL 0.92 MG/DL Random Glucose 293 MG/DL 270 MG/DL Calcium Level 7.8 MG/DL 7.7 MG/DL Sodium Level 138 MEQ/L 141 MEQ/L Potassium Level 3.7 MEQ/L 3.7 MEQ/L Chloride Level 99 MEQ/L 103 MEQ/L Carbon Dioxide Level 24.9 MEQ/L 22.5 MEQ/L Anion Gap 14 MEQ/L 16 MEQ/L Estimat Glomerular Filtration Rate 63 ML/MIN 61 ML/MIN Nucleated Red Blood Cells 1 /100 WBC Blood Gas Ventilator Setting Blood Gas Inspired Oxygen 65 % Test 01/26/18 11:30 01/26/18 18:30 01/26/18 20:19 01/26/18 23:43 Sodium Level 143 MEQ/L 143 MEQ/L 144 MEQ/L Serum Osmolality 310 MOSM/KG 313 MOSM/KG 305 MOSM/KG Urine Color YELLOW Urine Turbidity CLEAR Urine pH 5.5 Urine Specific Stuart 1.026 Urine Protein TRACE mg/dL Urine Glucose (UA) 1000 mg/dL Urine Ketones 10 mg/dL Urine Occult Blood NEG Urine Nitrite NEG Urine Bilirubin NEG Urine Urobilinogen LESS THAN 2.0 MG/DL Urine Leukocyte Esterase NEG Urine RBC 2 /hpf Urine WBC 3 /hpf Urine Squamous Epithelial Cells <1 /hpf Urine Uric Acid Crystals RARE /hpf Urine Hyaline Casts 2 /lpf Urine Mucus FEW /lpf Microscopic Urinalysis Comment CULT NOT INDICATED Test 01/27/18 04:24 01/27/18 05:30 01/27/18 11:45 01/27/18 18:15 Blood Gas Puncture Site ART LINE Blood Gas Patient Temperature 98.6 Blood Gas HCO3 21 mmol/L Blood Gas Base Excess -1.0 mmol/L Blood Gas Oxygen Saturation 95 % Arterial Blood pH 7.54 Arterial Blood Partial Pressure CO2 25 mmHg Arterial Blood Partial Pressure O2 82 mmHg Arterial Blood Oxygen Content 15.2 Vol % Arterial Blood Carboxyhemoglobin 1.0 % Arterial Blood Methemoglobin 1.4 % Blood Gas Hemoglobin 11.4 G/DL Oxygen Delivery Device VENTILATOR Blood Gas Ventilator Setting PRVC/AC Blood Gas Inspired Oxygen 65 % White Blood Count 17.5 TH/MM3 Red Blood Count 3.20 MIL/MM3 Hemoglobin 9.9 GM/DL Hematocrit 28.3 % Mean Corpuscular Volume 88.3 FL Mean Corpuscular Hemoglobin 30.8 PG Mean Corpuscular Hemoglobin Concent 34.8 % Red Cell Distribution Width 13.4 % Platelet Count 185 TH/MM3 Mean Platelet Volume 7.6 FL Neutrophils (%) (Auto) 93.5 % Lymphocytes (%) (Auto) 3.3 % Monocytes (%) (Auto) 3.0 % Eosinophils (%) (Auto) 0.0 % Basophils (%) (Auto) 0.2 % Neutrophils # (Auto) 16.3 TH/MM3 Lymphocytes # (Auto) 0.6 TH/MM3 Monocytes # (Auto) 0.5 TH/MM3 Eosinophils # (Auto) 0.0 TH/MM3 Basophils # (Auto) 0.0 TH/MM3 CBC Comment AUTO DIFF Differential Comment AUTO DIFF CONFIRMED Blood Urea Nitrogen 18 MG/DL Creatinine 0.66 MG/DL Random Glucose 257 MG/DL Total Protein 4.9 GM/DL Albumin 1.9 GM/DL Calcium Level 7.4 MG/DL Phosphorus Level 1.9 MG/DL 2.7 MG/DL Magnesium Level 2.2 MG/DL Alkaline Phosphatase 30 U/L Aspartate Amino Transf (AST/SGOT) 13 U/L Alanine Aminotransferase (ALT/SGPT) 17 U/L Total Bilirubin 0.3 MG/DL Sodium Level 144 MEQ/L 145 MEQ/L Potassium Level 3.4 MEQ/L 4.1 MEQ/L Chloride Level 112 MEQ/L Carbon Dioxide Level 22.4 MEQ/L Anion Gap 10 MEQ/L Estimat Glomerular Filtration Rate 89 ML/MIN Serum Osmolality 308 MOSM/KG 310 MOSM/KG 313 MOSM/KG Protein Corrected Calcium 8.6 MG/DL Test 01/28/18 00:00 01/28/18 04:20 Sodium Level 149 MEQ/L 149 MEQ/L Serum Osmolality 315 MOSM/KG 317 MOSM/KG White Blood Count 19.3 TH/MM3 Red Blood Count 2.96 MIL/MM3 Hemoglobin 9.0 GM/DL Hematocrit 25.9 % Mean Corpuscular Volume 87.6 FL Mean Corpuscular Hemoglobin 30.6 PG Mean Corpuscular Hemoglobin Concent 35.0 % Red Cell Distribution Width 13.8 % Platelet Count 223 TH/MM3 Mean Platelet Volume 7.4 FL CBC Comment AUTO DIFF Differential Total Cells Counted 100 Neutrophils % (Manual) 87 % Band Neutrophils % 4 % Lymphocytes % 5 % Monocytes % 2 % Neutrophils # (Manual) 17.9 TH/MM3 Metamyelocytes 1 % Myelocytes 1 % Differential Comment FINAL DIFF MANUAL Platelet Estimate NORMAL Platelet Morphology Comment NORMAL Polychromasia 2.1 % Red Cell Morphology Comment NORMAL Blood Urea Nitrogen 16 MG/DL Creatinine 0.40 MG/DL Random Glucose 197 MG/DL Total Protein 4.9 GM/DL Albumin 1.8 GM/DL Calcium Level 7.7 MG/DL Phosphorus Level 2.1 MG/DL Magnesium Level 2.3 MG/DL Alkaline Phosphatase 33 U/L Aspartate Amino Transf (AST/SGOT) 13 U/L Alanine Aminotransferase (ALT/SGPT) 18 U/L Total Bilirubin 0.2 MG/DL Potassium Level 3.5 MEQ/L Chloride Level 117 MEQ/L Carbon Dioxide Level 23.3 MEQ/L Anion Gap 9 MEQ/L Estimat Glomerular Filtration Rate 159 ML/MIN Phenytoin (Dilantin) Level 17.9 MCG/ML (Js Nj) Medical Decision Making Impression and Plan Impression: 1. Large frontal neoplasm noted on CT scan and previous MRI imaging. 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 Postoperative Diagnosis: (1) Meningioma, multiple (2) Parasagittal meningioma 1. Recurrent left parafalcine meningioma 2. 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 No evident seizure activity noted. Moves BLE to stimulation and will partially open left eye. Afebrile the past 24 hrs. Reviewed labs for today. Increase in leukocytosis. Drop in haemoglobin level. Sodium 149. Hypokalemia resolved. Improvement in eGFR. Hypophosphatemia improved. CT brain demonstrates stable left frontal & posterior temporal region ventricular haemorrhage & edema w/slight mass effect [id number] shift of third ventricle measuring 3 mm. No new haemorrhage identified. EEG w/evidence of seizure activity mainly to the right frontal area which has frequent intermittent discharges throughout the tracing. (It is noted in Neurology's consult note that the area the seizures are originating from is the left frontal.) DIANN drain with 110 mL for the past 24 hrs as of shift change this morning. POD #3 () s/p: Bifrontal craniotomy for resection 1. Left parafalcine meningioma 2. Bilateral cribriform plate -Planum sphenoidale meningioma 3. Use of frameless intraoperative stereotactic navigation for planning of the incision site and bone flap and resection of the parafalcine and frontal skull base neoplasm. Plan: Primary management per Hospitalist. Critical care management per Proof Operator. Seizure management per Neurology. Neuro checks. Stat CT brain for any decline in neuro status. Monitor DIANN drain output. Maintain SBP between 110 and 140 mm Hg. Appreciate Proof Operator's & Neurology's assistance in managing this critically ill patient. (Js Nj) Attending Statement The exam, history, and the medical decision-making described in the above note were completed with the assistance of the mid-level provider. I reviewed and agree with the findings presented. I attest that I had a [id number] encounter with the patient on the same day, and personally performed and documented my assessment and findings in the medical record. No overall change in neurologic exam on 01/28/2018 Anticonvulsant levels adjusted per neurology. Continue drain. (Tolu Herring MD) Js Nj Jan 28, 2018 09:32 Tolu Herring MD Jan 31, 2018 14:14
[2018-01-28] MEDS: SODIUM CHLOR 0.9% 1000 ML INJ 1,000 ML IV SCH (10:08)
--- NOTE | 2018-01-28 16:55 | HHI.CCPN ---
Subjective Remarks/Hospital Course 67-year-old female patient with history of a previous brain mass for which she underwent evaluation. She was after court order because she became aggressive and hostile at home. The patient lives with her mother, who has Alzheimer disease. The CT of the head performed in the emergency department showed an Extra-axial left frontal mass again seen with left to right midline shift, likely related to meningioma. She has undergone another tumor resection by Dr. Herring today. The patient remains postprocedure intubated, also the repeated postoperative CAT scan of the head show significant amount of brain edema. 01/26: FiO2 remains at 75%. Small left pleural effusion/atelectasis noted. Remains on 3% at [address] brain revealed stable cerebral edema with stable hemorrhage. Sedated on propofol drip at 40 mcg/kg/min 01/27: FiO2 down to 50%. Withdraws to pain bilateral upper and lower extremities. Currently on propofol drip at 45 mcg/kg/min. Tolerating tube feeds. Subjective 01/28: FiO2 down to 40%. Opens eyes to voice but currently not following commands. No tremor activity noted. Repeat EEG performed but results are pending. Currently levetiracetam and 1000 mg IV 3 times daily with phenytoin level at therapeutic levels Objective Vital Signs Date Time Temp Pulse Resp B/P (MAP) Pulse Ox O2 Delivery O2 Flow Rate FiO2 01/28/18 15:43 100 40 01/28/18 12:00 56 01/28/18 12:00 98.5 14 120/68 (85) 01/28/18 07:00 Mechanical Ventilator Intake and Output 01/28/18 01/28/18 01/29/18 08:00 16:00 00:00 Intake Total 735 ml 425 ml Output Total 650.0 ml Balance 85.0 ml 425 ml Result Diagram: 01/28/18 0420 01/28/18 0420 Imaging Last Impressions Chest X-Ray 01/28/18 0600 Signed Impressions: Service Date/Time: Sunday, January 28, 2018 03:50 - CONCLUSION: No significant interval change Tmomie Solis MD Head CT 01/26/18 1220 Signed Impressions: Service Date/Time: Friday, January 26, 2018 13:48 - CONCLUSION: 1. Slight improvement in acute hemorrhage and edema in the frontal lobe since January 26 exam from earlier today with slightly less mass effect and midline shift. No new hemorrhage. Andrey Pearson MD Head CTA 01/25/18 0000 Signed Impressions: Service Date/Time: Thursday, January 25, 2018 17:59 - CONCLUSION: No acute vascular findings Tommie Solis MD Brain MRI 01/24/18 0000 Signed Impressions: Service Date/Time: December 10:18 - CONCLUSION: Large enhancing mass in the upper left frontal lobe as well as dural enhancement along the base of the skull anterior midline. Vern Boo MD Procedures Left subclavian CVL 01/[address] Baldwin Left radial A-line placed in OR 01/25 Disinhibition Score: 14.00 Aggression Score: 14.00 Lability Score: 14.00 Agitated Behavior Total Score: 14 Objective Remarks GENERAL: 67-year-old female currently orotracheally intubated SKIN: Warm and dry. No rash HEAD: Post bifrontal craniectomy with karolina intact EYES: No scleral icterus. No injection or drainage. NECK: Supple, trachea midline. No JVD or lymphadenopathy. CARDIOVASCULAR: Regular rate and rhythm S1, S2 predose 4. Without murmurs, gallops, or rubs. RESPIRATORY: Breath sounds equal bilaterally. No accessory muscle use. GASTROINTESTINAL: Abdomen soft, non-tender, nondistended. MUSCULOSKELETAL: No significant peripheral edema. BACK: Nontender without obvious deformity. NEURO EXAM: The patient is sedated and intubated. Heavily sedated Urinary Catheter: Yes Assessment to: Continue Hills insert reason: Prolonged Immobilization Vascular Central Line Catheter: Yes Assessment to: Continue Date of Insertion: Jan 25, 2018 Line: Central Venous Catheter Side: Left Location: Subclavian A/P Assessment and Plan Neuro/Psych: Postop day #3 bifrontal craniotomy for resection of left parafalcine meningioma , bilateral cribriform plate -Planum sphenoidale meningioma with use of frameless intraoperative stereotactic navigation for planning of the incision site and bone flap and resection of the parafalcine and frontal skull base neoplasm CT brain postoperative 01/25 revealed subcutaneous air/subarachnoid hemorrhage left temporal and right parietal region. 1.8 parenchymal hemorrhage left temporal region. Neuro basilar cisterns. Central sulci are effaced. CT brain 01/26 - Stable he is ventricle hemorrhage and edema in the left frontal and left posterior temporal regions. Slight mass effect left to right shift of the third ventricle measuring 3 mm. No new hemorrhage is identified. There may be slightly less and edema in the frontal lobes on the previous study but the change is minimal. Evaluated by psychiatry Dr. Costa and deemed competent Currently on propofol drip at 40 mcg/kg minute and 50 mcg/h fentanyl drip for sedation/analgesia while intubated Goal of RASS of -2 Daily sedation vacation when okay with Dr. Herring Remains on 3% hypertonic saline at 20 cc an hour due to cerebral edema. Goal sodium 150-155 Serial sodiums every 6 hours with serum serum osmolalities every 6 hours Remains on dexamethasone at 4 mg IV every 12 hours for brain mass. Management per neurosurgery Levetiracetam 1000 mg IV 3 times daily Currently fosphenytoin 100 mg IV every 8 hours. Level 17.2 this a.m. Recheck tomorrow EEG 01/27 revealed sharps right frontal region. Followed by neurology/Dr. Lockwood. Antiepileptics as above. Repeat EEG 01/28 completed. Results pending CV: Hypertension Written for nicardipine drip and labetalol/clonidine as needed to maintain systolic blood pressure less than 130 Reason for phenylephrine drip to maintain systolic blood pressure greater than 110 currently and 20 mcg/min Previously on nifedipine 30 mg sustained release daily. This is on hold while hypotensive Resp: Postoperative respiratory failure PRVC 18/500/1//40 Ventilator bundle Albuterol/ipratropium aerosols every 6 hours with albuterol aerosols every 2 hours as needed dyspnea Spontaneous breathing trials when clinically indicated Portable chest x-ray in a.m. 01/29 GI: Hypoalbuminemia Start tube feeding with Glucerna 1.5 goal 50 cc an hour. Nutrition recommended vital high-protein at 45 cc now. We will continue with hyperglycemia Lansoprazole 30 mg daily for GI prophylaxis Docusate sodium 100 mg twice daily/senna liquid 8.6 mg twice daily for bowel regimen : Hills catheter has been placed for accurate I's and O's in a critically ill patient Endo: Hyperglycemia of critical illness/steroid induced Continue on low-dose insulin detemir 15 units twice daily. 31 unit sliding scale insulin past 24 hours Sliding scale insulin/moderate regimen with Accu-Cheks every 4 hours to maintain euglycemia Novulog Renal: Creatinine currently within normal limits Monitor urine output Accurate I's and O's Heme: Normocytic anemia Leukocytosis Monitor CBC daily. Follow trends ID: Monitor for signs and symptoms of infection FEN: Hypophosphatemia Patient is currently on 3% saline at 20 cc an hour for total of 5 days Serial sodiums every 6 hours. Goal 150-155 30 mmol K-Phos IV 1 now. Recheck in a.m. MSK: Physical therapy evaluate and treat Access -Left subclavian CVL placed 01/25 -Right femoral A-line placed 01/26 Prophylaxis -GI -lansoprazole -DVT -SCD/holding pharmacological prophylaxis in light of hemorrhage. Initiate when okay with neurosurgery Critical Care: The total critical care time was 35 minutes. Time to perform other separately billable procedures was not included in the critical care time. Jose Millan MD Jan 28, 2018 16:55
[2018-01-28 17:07] LABS: PHENYTOIN (DILANTIN) 11.4 MCG/ML (10.0-20.0)
[2018-01-28] MEDS ORDERED: GLUCAGON 1 MG/ML VIAL OTHER PRN (17:30)
[2018-01-28] MEDS ORDERED: SODIUM CHLORID 0.9% 500 ML INJ 500 ML IV ONE (17:30)
[2018-01-28] MEDS ORDERED: DEXTROSE 50% IN WATER 50 ML VIAL(D50) IV PUSH PRN (17:30)
[2018-01-28] MEDS: 3% SALINE INJ 500 ML IV PRN (18:37)
--- NOTE | 2018-01-28 20:04 | HHI.PR ---
Review/Management Diagnosis s/p meningioma resection with left frontal sz---sz resolved with cerebyx and keppra Plan continue current dose of cerebyx and keppra Diagnosis/Plan: Subjective Subjective Comments No acute events reported No clinical evidence for sz. Active Medications Current Medications Medications (Trade) Dose Ordered Sig/Yancy Route Start Time Stop Time Status Last Admin (Catapres) 0.1 mg Q6H PRN PO 01/18/18 19:30 01/22/18 13:06 (Decadron) 4 mg Q12H PO 01/23/18 09:00 01/28/18 09:08 Nicardipine HCl 25 mg/Sodium Chloride 260 ml @ 52 mls/hr TITRATE PRN IV 01/25/18 19:15 01/27/18 08:27 (Brethine Inj) 1 mg UNSCH PRN SQ 01/25/18 19:15 Sodium Chloride 500 ml @ 20 mls/hr UNSCH PRN IV 01/25/18 19:45 01/30/18 19:44 01/28/18 18:37 (Peridex 0.12% Liq) 15 ml BID@08,20 MT 01/25/18 20:00 01/28/18 08:00 Propofol 100 ml @ 2.709 mls/ hr TITRATE PRN IV 01/25/18 20:00 01/28/18 18:33 (Prevacid Odt) 30 mg DAILY NG 01/26/18 09:00 01/28/18 09:08 (Trandate Inj) 10 mg Q1HR PRN IV PUSH 01/26/18 07:15 (Tears Naturale Opth Soln) 1 drop Q8HR EACH EYE 01/26/18 14:00 01/28/18 14:00 (Duoneb Neb) 1 ampule Q6HR NEB NEB 01/26/18 10:00 01/28/18 19:46 (Albuterol Neb) 2.5 mg Q2HR NEB PRN NEB 01/26/18 07:15 (Tylenol 650 Mg/ 20 ml Liq) 650 mg Q6H PRN PO 01/26/18 07:15 (Colace Liq) 100 mg Q12HR PO 01/26/18 09:00 01/28/18 09:08 (Senna Liq) 8.8 mg BID PO 01/26/18 09:00 01/28/18 09:08 Potassium Chloride 100 ml @ 50 mls/hr Q2H PRN IV 01/26/18 07:45 Potassium Chloride 100 ml @ 50 mls/hr Q2H PRN IV 01/26/18 07:45 (K-Lyte Cl Eff) 50 meq UNSCH PRN PO 01/26/18 07:45 Potassium Chloride 100 ml @ 25 mls/hr UNSCH PRN IV 01/26/18 07:45 Potassium Chloride 100 ml @ 50 mls/hr Q2H PRN IV 01/26/18 07:45 01/27/18 17:19 Magnesium Sulfate 4 gm/Sodium Chloride 100 ml @ 50 mls/hr UNSCH PRN IV 01/26/18 07:45 (Mag-Ox) 800 mg UNSCH PRN PO 01/26/18 07:45 Magnesium Sulfate 2 gm/Sodium Chloride 100 ml @ 50 mls/hr UNSCH PRN IV 01/26/18 07:45 (K-Phos) 2,000 mg Q4H PRN PO 01/26/18 07:45 Sodium Phosphate 30 mmol/Sodium Chloride 250 ml @ 42 mls/hr UNSCH PRN IV 01/26/18 07:45 (K-Phos) 2,000 mg UNSCH PRN PO/TUBE 01/26/18 07:45 Potassium Phosphate 30 mmol/ Sodium Chloride 260 ml @ 42 mls/hr UNSCH PRN IV 01/26/18 07:45 01/28/18 09:09 (Mycostatin Powder) 1 applic Q12HR TOPICAL 01/26/18 21:00 01/28/18 09:00 (Cerebyx Inj) 100 mgpe Q8HR IV 01/26/18 22:00 01/28/18 14:00 (Levemir Inj) 15 units BID SQ 01/27/18 21:00 01/28/18 09:08 Fentanyl Citrate 250 ml @ 5 mls/hr TITRATE PRN IV 01/27/18 12:15 01/27/18 12:45 Levetriacetam 100 ml @ 400 mls/hr Q8HR IV 01/28/18 06:00 01/28/18 14:00 Phenylephrine HCl 40 mg/Sodium Chloride 500 ml @ 30 mls/hr TITRATE PRN IV 01/28/18 09:00 01/28/18 09:10 (D50w (Vial) Inj) 50 ml UNSCH PRN IV PUSH 01/28/18 17:30 (Glucagon Inj) 1 mg UNSCH PRN OTHER 01/28/18 17:30 (NovoLOG SUPPLEMENTAL SCALE) 1 Q4HR SQ 01/28/18 20:00 01/28/18 17:25 Allergies Allergies Coded Allergies No Allergy Information Available (Unverified01/18/18) Exam I&O / VS 01/28/18 01/28/18 01/29/18 15:00 23:00 07:00 Intake Total 525 ml 1876 ml Output Total 0 ml 405 ml Balance 525 ml 1471 ml IV Total 525 ml 1510 ml Tube Feeding 306 ml Tube Irrigant 60 ml Output Urine Total 375 ml Tube Feeding Residual Discard 0 ml 0 ml Drainage Total 30 ml # Bowel Movements 0 Vital Signs Date Time Temp Pulse Resp B/P (MAP) Pulse Ox O2 Delivery O2 Flow Rate FiO2 01/28/18 19:46 99 40 01/28/18 18:56 57 146/66 01/28/18 18:37 57 142/77 01/28/18 18:00 52 01/28/18 16:00 97.9 56 14 103/61 (75) 99 01/28/18 16:00 40 01/28/18 16:00 56 01/28/18 15:43 100 40 01/28/18 14:14 99 40 01/28/18 14:00 58 01/28/18 14:00 58 95/54 01/28/18 12:00 40 01/28/18 12:00 56 01/28/18 12:00 98.5 56 14 120/68 (85) 99 01/28/18 10:32 100 40 01/28/18 10:00 60 01/28/18 09:10 56 122/70 01/28/18 08:32 98 40 01/28/18 08:00 40 01/28/18 08:00 97.7 56 14 122/72 (89) 98 01/28/18 08:00 57 01/28/18 07:00 97 Mechanical Ventilator 40 01/28/18 06:00 66 01/28/18 04:00 40 01/28/18 04:00 62 01/28/18 04:00 98.5 62 14 100 140/55 (83) 01/28/18 03:10 96 40 01/28/18 02:00 62 01/28/18 00:20 97 40 01/28/18 00:00 97.5 64 14 96 138/66 (90) 01/28/18 00:00 50 01/28/18 00:00 64 01/27/18 22:00 68 Exam Comments nonresponsive CN intact MOTOR--no spontaneous limb movement , no sz. Objective Micro and Labs Laboratory Tests Test 01/28/18 00:00 01/28/18 04:20 01/28/18 16:10 Sodium Level 149 149 150 Serum Osmolality 315 317 319 White Blood Count 19.3 Red Blood Count 2.96 Hemoglobin 9.0 Hematocrit 25.9 Mean Corpuscular Volume 87.6 Mean Corpuscular Hemoglobin 30.6 Mean Corpuscular Hemoglobin Concent 35.0 Red Cell Distribution Width 13.8 Platelet Count 223 Mean Platelet Volume 7.4 CBC Comment AUTO DIFF Differential Total Cells Counted 100 Neutrophils % (Manual) 87 Band Neutrophils % 4 Lymphocytes % 5 Monocytes % 2 Neutrophils # (Manual) 17.9 Metamyelocytes 1 Myelocytes 1 Differential Comment FINAL DIFF MANUAL Platelet Estimate NORMAL Platelet Morphology Comment NORMAL Polychromasia 2.1 Red Cell Morphology Comment NORMAL Blood Urea Nitrogen 16 Creatinine 0.40 Random Glucose 197 Total Protein 4.9 Albumin 1.8 Calcium Level 7.7 Phosphorus Level 2.1 Magnesium Level 2.3 Alkaline Phosphatase 33 Aspartate Amino Transf (AST/SGOT) 13 Alanine Aminotransferase (ALT/SGPT) 18 Total Bilirubin 0.2 Potassium Level 3.5 Chloride Level 117 Carbon Dioxide Level 23.3 Anion Gap 9 Estimat Glomerular Filtration Rate 159 Phenytoin (Dilantin) Level 17.9 11.4 Diagnostic Tests EEG today much improved since yesterday with no epileptiform discharges frequently as before Campbell Lockwood MD PhD Jan 28, 2018 20:04
[2018-01-29] VITALS (18 sets, daily range): BP systolic 103–158; BP diastolic 57–78; PULSE 56–95; RESP 14–17; TEMP 97.5–99; O2SAT 95–100
[2018-01-29] MEDS: INSULIN ASPART SUPPLEMENTAL SCALE SQ SCH ×6 (00:12→20:00)
[2018-01-29] MEDS: PROPOFOL 1000 MG/100 ML INJ 100 ML IV PRN ×4 (03:17→23:45)
[2018-01-29] MEDS: RESP: ALBUTEROL 2.5 MG/IPRATROPIUM 0.5 MG NEB (SCH) NEB ×4 (03:57→20:11)
[2018-01-29] MEDS: FOSPHENYTOIN SODIUM 100 MG PE/2 ML VIAL IV SCH ×3 (05:25→21:10)
[2018-01-29] MEDS: levETIRAcetam INJ 100 ML IV SCH ×3 (05:25→21:10)
[2018-01-29] MEDS: ARTIFICIAL TEARS OPTH SOLN 15 ML BTL EACH EYE SCH ×3 (05:25→21:11)
--- NOTE | 2018-01-29 05:39 | RADRPT ---
EXAM DATE/TIME: 01/29/2018 04:20 [facility] COMPARISON: CHEST SINGLE AP, January 28, 2018, 3:50. INDICATIONS : Respiratory distress. MEDICAL HISTORY : Dementia, brain mass. SURGICAL HISTORY : Craniotomy. ENCOUNTER: Subsequent ACUITY: 1 week PAIN SCORE: Non-responsive. LOCATION: Bilateral chest FINDINGS: Endotracheal tube, nasogastric tube and left subclavian central line are stable. Dense consolidation in the left base is unchanged. There is mild developing parenchymal opacity in the right base. Accoun ting for differences in technique and projection, cardiomediastinal contours are stable. CONCLUSION: Slight interval worsening in aeration Tommie Solis MD on January 29, 2018 at 5:37 Board Certified Radiologist. This report was verified electronically.
[2018-01-29 06:17] LABS: AUTOMATED NEUTROPHIL # 7.9 TH/MM3 (1.8-7.7); BASOPHIL % 0.1 % (0.0-2.0); HEMATOCRIT 23.9 % (35.0-46.0); HEMOGLOBIN 8.2 GM/DL (11.6-15.3); LYMPH % 6.7 % (9.0-44.0); LYMPHOCYTE # 0.6 TH/MM3 (1.0-4.8); MEAN CORPUSCULAR HEMOGLOBIN 30.4 PG (27.0-34.0); MEAN CORPUSCULAR HGB CONC 34.2 % (32.0-36.0); MEAN PLATELET VOLUME 7.4 FL (7.0-11.0); MONO % 3.2 % (0.0-8.0); MONOCYTE # 0.3 TH/MM3 (0-0.9); PLATELET COUNT 201 TH/MM3 (150-450); RED BLOOD COUNT 2.69 MIL/MM3 (4.00-5.30); RED CELL DISTRIBUTION WIDTH 14.1 % (11.6-17.2); WHITE BLOOD COUNT 8.8 TH/MM3 (4.0-11.0)
[2018-01-29 06:53] LABS: ALBUMIN 1.8 GM/DL (3.4-5.0); AST (GOT) 12 U/L (15-37); BICARBONATE 23.6 MEQ/L (21.0-32.0); BLOOD UREA NITROGEN 22 MG/DL (7-18); CALCIUM 7.5 MG/DL (8.5-10.1); CHLORIDE 122 MEQ/L (98-107); CREATININE 0.48 MG/DL (0.50-1.00); GLOMERULAR FILTRATION RATE 129 ML/MIN (>89); GLUCOSE,RANDOM 158 MG/DL (74-106); MAGNESIUM 2.3 MG/DL (1.5-2.5); SODIUM (NA) 153 MEQ/L (136-145)
[2018-01-29 06:54] LABS: ALT (GPT) 19 U/L (10-53); PHOSPHORUS 2.3 MG/DL (2.5-4.9)
[2018-01-29 06:56] LABS: ALKALINE PHOSPHATASE 30 U/L (45-117); TOTAL BILIRUBIN ADULT 0.1 MG/DL (0.2-1.0); TOTAL PROTEIN 4.8 GM/DL (6.4-8.2)
--- NOTE | 2018-01-29 07:41 | MG ---
cc: Smith Rodrigues MD TEST NUMBER: [id number]. DESCRIPTION: Hyperventilation not performed. The patient is on fentanyl. CT negative. Migraines, Keppra. Some right hemisphere slowing is seen over the right central and frontal head region to begin the recording, which shows a background of some mixed beta and alpha waves. Some phase reversing theta waves are seen in the 4 Hz range, again over the right frontal head region. No spikes are noted. Photic stimulation is performed without significant posterior driving. IMPRESSION: Some right hemisphere, especially some right frontal slowing is seen and a lesion in this region should be ruled out. MD KILO Montelongo/LUCI , 06:01 PM , 06:09 PM
[2018-01-29] MEDS: CHLORHEXIDINE 0.12% (ORAL KIT) 15 ML CUP MT SCH ×2 (08:04→20:00)
[2018-01-29 08:35] LABS: BANDS 11 % (0-6); LYMPHOCYTES 1 % (9-44); METAMYELOCYTES 2 % (0-1); MONOCYTES 3 % (0-8); NEUTROPHIL # MANUAL DIFF 8.4 TH/MM3 (1.8-7.7); POLYS (SEG NEUTROPHILS) 83 % (16-70)
[2018-01-29] MEDS: NYSTATIN 100,000 U/GM PWD 15 GM BTL TOPICAL SCH ×2 (09:00→20:02)
[2018-01-29] MEDS: INSULIN DETEMIR 100 UNITS/ML VIAL SQ SCH ×2 (09:00→20:02)
[2018-01-29] MEDS: SENNOSIDES SYRUP 8.8 MG/5 ML CUP PO SCH ×2 (09:00→20:02)
[2018-01-29] MEDS: LANSOPRAZOLE SOLUTAB 30 MG TAB NG SCH (09:30)
[2018-01-29] MEDS: DOCUSATE SODIUM 100 MG/10 ML UDC PO SCH ×2 (09:30→20:02)
[2018-01-29] MEDS: DEXAMETHASONE 4 MG TAB PO SCH ×3 (09:30→23:45)
--- NOTE | 2018-01-29 09:31 | HHI.NSPN ---
(Js Nj) History Chief Complaint: Unable to obtain due to patient's clinical condition. (ClemJs) Interval History 01/18: This is a 67-year-old female patient with history of a previous brain mass for which she underwent evaluation. She was brought today to the emergency room after court order because she became aggressive and hostile at home, the patient lives with her mother, who has Alzheimer disease. She has been fighting with her sister and now she is being brought for medical evaluation and psychiatric evaluation. The patient reports that she was previously seen because of a brain tumor and she still has not decided what to do with it. 01/19: Patient history of brain tumor. 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 01/23: The patient is in the bathroom when seen. She is assisted up from the commode and uses a walker to ambulate back to her bed where she sits on the edge of it. She denies any headache or dizziness. She does state that her vision is off but she is not able to describe it any further. She has pain to the right elbow from a fall, otherwise she has no pain to the extremities. She denies any numbness or tingling to the extremities. She does have some difficulty finding the correct word she wants to use. No sensorimotor deficits are noted. 01/24: When seen this afternoon the patient is awake and alert talking with the Electrical Maintenance Worker. She does endorse a slight headache this morning but denies any dizziness, visual problems or nausea. She does have some right elbow and left foot pain. She also says that she hurt both knees. Otherwise she has no pain into the extremities and denies any numbness or tingling to them. There is no change in her neuro exam from yesterday. 01/25: The patient went to the operating room for a bifrontal craniotomy for resection of a left parafalcine meningioma and a bilateral cribriform plate- planum sphenoidale meningioma. Post-operatively she was transferred to [facility] for further care and monitoring. 01/26: This morning the patient remains intubated and mechanically ventilated. She is sedated with propofol. A nicardipine drip is infusing for blood pressure control. She did withdraw the right hand and both feet to noxious stimulation upon examination. 01/27: The Print Cutter reported that the patient was having a subclinical seizure seen on the EEG this morning. When the patient was seen the emd special education teacher had just completed the EEG and said the patient was having seizures to the right frontal. After being evaluated the patient was noted to have twitching of the first and second digits of the right hand briefly. She remains obtunded and is sedated with propofol. She is also still intubated and mechanically ventilated. She did move both feet to noxious stimulation. 01/28: No seizure activity noted when seen this morning. She continues to be obtunded but maximally sedated with propofol. She is still intubated and mechanically ventilated. She moved only the lower extremities slightly to local noxious stimulation and had partial left eye opening with central noxious stimulation. She was evaluated by Neurology yesterday who adjusted her antiepileptic medication. Another EEG is to be done this morning. 01/29: Repeat EEG done yesterday with right hemisphere slowing. When seen she is lethargic. She is still intubated and mechanically ventilated. The propofol is infusing for sedation. With sedation held she did partially open her eyes and responded to noxious stimulation to the lower extremities only. There is no significant change in her exam. (Js jN) System Review Comments Unable to obtain due to patient's clinical condition. (Js Nj) Exam Results Recent Impressions Chest X-Ray 01/29/18599 Signed Impressions: Service Date/Time: Monday, January 29, 2018 04:20 - CONCLUSION: Slight interval worsening in aeration Tommie Solis MD Chest X-Ray 01/28/18599 Signed Impressions: Service Date/Time: Sunday, January 28, 2018 03:50 - CONCLUSION: No significant interval change Tommie Solis MD Chest X-Ray 01/27/18599 Signed Impressions: Service Date/Time: Saturday, January 27, 2018 04:03 - CONCLUSION: 1. Support apparatus in good position. Basilar airspace disease, left greater than right and small left effusion. Andrey Pearson MD Head CT 01/26/18 1220 Signed Impressions: Service Date/Time: Friday, January 26, 2018 13:48 - CONCLUSION: 1. Slight improvement in acute hemorrhage and edema in the frontal lobe since January 26 exam from earlier today with slightly less mass effect and midline shift. No new hemorrhage. Andrey Pearson MD 01/27/18 01/27/18 01/28/18 01/28/18 01/29/18 01/29/18 06:00 18:00 06:00 18:00 06:00 18:00 Intake Total 950 ml 2235 ml 1635 ml 1351 ml 1527 ml Output Total 550 ml 760 ml 650 ml 405 ml 710.0 ml Balance 400 ml 1475 ml 985 ml 946 ml 817.0 ml IV Total 950 ml 1900 ml 1200 ml 985 ml 1350 ml Tube Feeding 235 ml 375 ml 306 ml 77 ml Tube Irrigant 100 ml 60 ml 100 ml Other 60 ml Output Urine Total 450 ml 700 ml 600 ml 375 ml 400 ml Tube Feeding Residual Discard 0 ml 280.0 ml Drainage Total 100 ml 60 ml 50 ml 30 ml 30 ml # Bowel Movements 0 0 0 0 Vital Signs Date Time Temp Pulse Resp B/P (MAP) Pulse Ox O2 Delivery O2 Flow Rate FiO2 01/29/18 07:54 99 40 01/29/18 06:00 60 01/29/18 04:00 40 01/29/18 04:00 98.1 59 14 134/57 (82) 99 01/29/18 04:00 59 01/29/18 03:58 99 40 01/29/18 02:00 59 01/29/18 00:30 100 40 01/29/18 00:00 56 01/29/18 00:00 40 01/29/18 00:00 97.5 56 14 103/59 (74) 100 01/28/18 22:00 59 01/28/18 20:00 97.6 57 14 130/55 (80) 99 01/28/18 20:00 40 01/28/18 20:00 57 01/28/18 19:46 99 40 01/28/18 19:00 99 Mechanical Ventilator 40 01/28/18 18:56 57 146/66 01/28/18 18:37 57 142/77 01/28/18 18:00 52 01/28/18 16:00 97.9 56 14 103/61 (75) 99 01/28/18 16:00 40 01/28/18 16:00 56 01/28/18 15:43 100 40 01/28/18 14:14 99 40 01/28/18 14:00 58 01/28/18 14:00 58 95/54 01/28/18 12:00 40 01/28/18 12:00 56 01/28/18 12:00 98.5 56 14 120/68 (85) 99 01/28/18 10:32 100 40 01/28/18 10:00 60 01/28/18 09:10 56 122/70 01/28/18 08:32 98 40 01/28/18 08:00 40 01/28/18 08:00 97.7 56 14 122/72 (89) 98 01/28/18 08:00 57 01/28/18 07:00 97 Mechanical Ventilator 40 01/28/18 06:00 66 01/28/18 04:00 40 01/28/18 04:00 62 01/28/18 04:00 98.5 62 14 100 140/55 (83) 01/28/18 03:10 96 40 01/28/18 02:00 62 01/28/18 00:20 97 40 01/28/18 00:00 97.5 64 14 96 138/66 (90) 01/28/18 00:00 50 01/28/18 00:00 64 01/27/18 22:00 68 01/27/18 20:00 82 01/27/18 20:00 50 01/27/18 20:00 98.4 82 14 96 116/48 (70) 01/27/18 19:50 95 50 01/27/18 19:00 96 Mechanical Ventilator 50 01/27/18 18:41 75 135/55 01/27/18 18:30 72 143/51 01/27/18 18:00 72 01/27/18 17:18 74 114/45 01/27/18 16:52 95 50 01/27/18 16:00 97.6 73 14 94 106/43 (64) 01/27/18 16:00 65 01/27/18 16:00 73 01/27/18 14:00 78 01/27/18 13:02 93 50 01/27/18 12:00 96 01/27/18 12:00 65 01/27/18 12:00 98.5 96 14 95 136/57 (83) 01/27/18 11:38 94 55 01/27/18 10:22 81 119/47 01/27/18 10:00 81 01/27/18 09:45 85 116/46 01/27/18 09:30 85 115/45 01/27/18 09:15 85 120/47 01/27/18 08:27 90 145/62 01/27/18 08:15 95 55 01/27/18 08:00 81 01/27/18 08:00 98.5 82 14 96 138/59 (85) 01/27/18 08:00 65 01/27/18 07:00 Mechanical Ventilator 60 01/27/18 06:00 83 01/27/18 04:40 97 65 01/27/18 04:03 97 65 01/27/18 04:00 65 01/27/18 04:00 98.6 86 18 134/61 (85) 94 134/61 (85) 01/27/18 04:00 86 01/27/18 03:29 85 119/52 01/27/18 02:00 87 01/27/18 01:08 89 121/73 01/27/18 00:00 89 01/27/18 00:00 65 01/27/18 00:00 100.3 94 18 118/58 (78) 94 118/58 (78) 01/26/18 23:44 94 65 01/26/18 23:36 90 121/46 01/26/18 22:00 94 01/26/18 20:27 105 141/55 01/26/18 20:18 94 65 01/26/18 20:00 98 01/26/18 20:00 97.0 98 18 109/53 (71) 98 109/53 (71) 01/26/18 18:00 98.5 96 18 125/57 (79) 94 01/26/18 18:00 87 01/26/18 17:42 97 01/26/18 17:24 96 65 01/26/18 16:00 87 01/26/18 15:05 92 144/63 01/26/18 14:00 87 01/26/18 13:50 100 100 01/26/18 12:21 93 65 01/26/18 12:00 87 01/26/18 12:00 98.4 102 16 110/76 (87) 100 01/26/18 10:52 93 132/63 01/26/18 10:10 95 65 01/26/18 10:00 87 (Js Nj) Physical Examination GENERAL: Lethargic, intubated & mechanically ventilated, propofol infusing at 40 mcg/kg/min for sedation. Fentanyl infusing at 50 mcg/hr for pain control. No apparent distress. Sedation held for evaluation. HEENT: Normocephalic. Bilateral craniotomy surgical incision well-approximated w /karolina w/o any evident drainage, erythema or streaking, DIANN drain to bulb suction w/clearing serosanguinous drainage. PERRLA 3 mm and sluggish. Orally intubated, OGT. MUSCULOSKELETAL: Moved BLE to noxious stimulation. NEUROLOGICAL: Lethargic, sedated w/propofol which was held for evaluation. Nonverbal, orally intubated. Eyes examined and closed then patient partially opened them about 3/4s. PERRLA 3 mm and sluggish. Did not follow any commands. Slight withdrawal of BLE w/flexion of foot to local noxious stimulation but not central. No response w/BUE to any stimulation. 3% hypertonic saline infusing at 20 mL/hr. (Js Nj) Lab, Micro, Other Results Recent Impressions Chest X-Ray 01/29/18599 Signed Impressions: Service Date/Time: Monday, January 29, 2018 04:20 - CONCLUSION: Slight interval worsening in aeration Tommie Solis MD Chest X-Ray 01/28/18599 Signed Impressions: Service Date/Time: Sunday, January 28, 2018 03:50 - CONCLUSION: No significant interval change Tommie Solis MD Chest X-Ray 01/27/18599 Signed Impressions: Service Date/Time: Saturday, January 27, 2018 04:03 - CONCLUSION: 1. Support apparatus in good position. Basilar airspace disease, left greater than right and small left effusion. Andrey Pearson MD Head CT 01/26/18 1220 Signed Impressions: Service Date/Time: Friday, January 26, 2018 13:48 - CONCLUSION: 1. Slight improvement in acute hemorrhage and edema in the frontal lobe since January 26 exam from earlier today with slightly less mass effect and midline shift. No new hemorrhage. Andrey Pearson MD Laboratory Tests Test 01/26/18 10:03 01/26/18 11:30 01/26/18 18:30 01/26/18 20:19 Blood Gas Puncture Site LT BRACHIAL Blood Gas Patient Temperature 98.6 Blood Gas HCO3 22 mmol/L Blood Gas Base Excess -0.8 mmol/L Blood Gas Oxygen Saturation 92 % Arterial Blood pH 7.47 Arterial Blood Partial Pressure CO2 31 mmHg Arterial Blood Partial Pressure O2 67 mmHg Arterial Blood Oxygen Content 16.4 Vol % Arterial Blood Carboxyhemoglobin 0.8 % Arterial Blood Methemoglobin 1.2 % Blood Gas Hemoglobin 12.7 G/DL Oxygen Delivery Device VENTILATOR Blood Gas Ventilator Setting Blood Gas Inspired Oxygen 65 % Sodium Level 143 MEQ/L 143 MEQ/L Serum Osmolality 310 MOSM/KG 313 MOSM/KG Urine Color YELLOW Urine Turbidity CLEAR Urine pH 5.5 Urine Specific [place] 1.026 Urine Protein TRACE mg/dL Urine Glucose (UA) 1000 mg/dL Urine Ketones 10 mg/dL Urine Occult Blood NEG Urine Nitrite NEG Urine Bilirubin NEG Urine Urobilinogen LESS THAN 2.0 MG/DL Urine Leukocyte Esterase NEG Urine RBC 2 /hpf Urine WBC 3 /hpf Urine Squamous Epithelial Cells <1 /hpf Urine Uric Acid Crystals RARE /hpf Urine Hyaline Casts 2 /lpf Urine Mucus FEW /lpf Microscopic Urinalysis Comment CULT NOT INDICATED Test 01/26/18 23:43 01/27/18 04:24 01/27/18 05:30 01/27/18 11:45 Sodium Level 144 MEQ/L 144 MEQ/L 145 MEQ/L Serum Osmolality 305 MOSM/KG 308 MOSM/KG 310 MOSM/KG Blood Gas Puncture Site ART LINE Blood Gas Patient Temperature 98.6 Blood Gas HCO3 21 mmol/L Blood Gas Base Excess -1.0 mmol/L Blood Gas Oxygen Saturation 95 % Arterial Blood pH 7.54 Arterial Blood Partial Pressure CO2 25 mmHg Arterial Blood Partial Pressure O2 82 mmHg Arterial Blood Oxygen Content 15.2 Vol % Arterial Blood Carboxyhemoglobin 1.0 % Arterial Blood Methemoglobin 1.4 % Blood Gas Hemoglobin 11.4 G/DL Oxygen Delivery Device VENTILATOR Blood Gas Ventilator Setting PRVC/AC Blood Gas Inspired Oxygen 65 % White Blood Count 17.5 TH/MM3 Red Blood Count 3.20 MIL/MM3 Hemoglobin 9.9 GM/DL Hematocrit 28.3 % Mean Corpuscular Volume 88.3 FL Mean Corpuscular Hemoglobin 30.8 PG Mean Corpuscular Hemoglobin Concent 34.8 % Red Cell Distribution Width 13.4 % Platelet Count 185 TH/MM3 Mean Platelet Volume 7.6 FL Neutrophils (%) (Auto) 93.5 % Lymphocytes (%) (Auto) 3.3 % Monocytes (%) (Auto) 3.0 % Eosinophils (%) (Auto) 0.0 % Basophils (%) (Auto) 0.2 % Neutrophils # (Auto) 16.3 TH/MM3 Lymphocytes # (Auto) 0.6 TH/MM3 Monocytes # (Auto) 0.5 TH/MM3 Eosinophils # (Auto) 0.0 TH/MM3 Basophils # (Auto) 0.0 TH/MM3 CBC Comment AUTO DIFF Differential Comment AUTO DIFF CONFIRMED Blood Urea Nitrogen 18 MG/DL Creatinine 0.66 MG/DL Random Glucose 257 MG/DL Total Protein 4.9 GM/DL Albumin 1.9 GM/DL Calcium Level 7.4 MG/DL Phosphorus Level 1.9 MG/DL Magnesium Level 2.2 MG/DL Alkaline Phosphatase 30 U/L Aspartate Amino Transf (AST/SGOT) 13 U/L Alanine Aminotransferase (ALT/SGPT) 17 U/L Total Bilirubin 0.3 MG/DL Potassium Level 3.4 MEQ/L Chloride Level 112 MEQ/L Carbon Dioxide Level 22.4 MEQ/L Anion Gap 10 MEQ/L Estimat Glomerular Filtration Rate 89 ML/MIN Protein Corrected Calcium 8.6 MG/DL Test 01/27/18 18:15 01/28/18 00:00 01/28/18 04:20 01/28/18 16:10 Potassium Level 4.1 MEQ/L 3.5 MEQ/L Serum Osmolality 313 MOSM/KG 315 MOSM/KG 317 MOSM/KG 319 MOSM/KG Phosphorus Level 2.7 MG/DL 2.1 MG/DL Sodium Level 149 MEQ/L 149 MEQ/L 150 MEQ/L White Blood Count 19.3 TH/MM3 Red Blood Count 2.96 MIL/MM3 Hemoglobin 9.0 GM/DL Hematocrit 25.9 % Mean Corpuscular Volume 87.6 FL Mean Corpuscular Hemoglobin 30.6 PG Mean Corpuscular Hemoglobin Concent 35.0 % Red Cell Distribution Width 13.8 % Platelet Count 223 TH/MM3 Mean Platelet Volume 7.4 FL CBC Comment AUTO DIFF Differential Total Cells Counted 100 Neutrophils % (Manual) 87 % Band Neutrophils % 4 % Lymphocytes % 5 % Monocytes % 2 % Neutrophils # (Manual) 17.9 TH/MM3 Metamyelocytes 1 % Myelocytes 1 % Differential Comment FINAL DIFF MANUAL Platelet Estimate NORMAL Platelet Morphology Comment NORMAL Polychromasia 2.1 % Red Cell Morphology Comment NORMAL Blood Urea Nitrogen 16 MG/DL Creatinine 0.40 MG/DL Random Glucose 197 MG/DL Total Protein 4.9 GM/DL Albumin 1.8 GM/DL Calcium Level 7.7 MG/DL Magnesium Level 2.3 MG/DL Alkaline Phosphatase 33 U/L Aspartate Amino Transf (AST/SGOT) 13 U/L Alanine Aminotransferase (ALT/SGPT) 18 U/L Total Bilirubin 0.2 MG/DL Chloride Level 117 MEQ/L Carbon Dioxide Level 23.3 MEQ/L Anion Gap 9 MEQ/L Estimat Glomerular Filtration Rate 159 ML/MIN Phenytoin (Dilantin) Level 17.9 MCG/ML 11.4 MCG/ML Test 01/28/18 23:30 01/29/18 05:35 Sodium Level 151 MEQ/L 153 MEQ/L Serum Osmolality 318 MOSM/KG 317 MOSM/KG White Blood Count 8.8 TH/MM3 Red Blood Count 2.69 MIL/MM3 Hemoglobin 8.2 GM/DL Hematocrit 23.9 % Mean Corpuscular Volume 89.0 FL Mean Corpuscular Hemoglobin 30.4 PG Mean Corpuscular Hemoglobin Concent 34.2 % Red Cell Distribution Width 14.1 % Platelet Count 201 TH/MM3 Mean Platelet Volume 7.4 FL Neutrophils (%) (Auto) 90.0 % Lymphocytes (%) (Auto) 6.7 % Monocytes (%) (Auto) 3.2 % Eosinophils (%) (Auto) 0.0 % Basophils (%) (Auto) 0.1 % Neutrophils # (Auto) 7.9 TH/MM3 Lymphocytes # (Auto) 0.6 TH/MM3 Monocytes # (Auto) 0.3 TH/MM3 Eosinophils # (Auto) 0.0 TH/MM3 Basophils # (Auto) 0.0 TH/MM3 CBC Comment AUTO DIFF Differential Total Cells Counted 100 Neutrophils % (Manual) 83 % Band Neutrophils % 11 % Lymphocytes % 1 % Monocytes % 3 % Neutrophils # (Manual) 8.4 TH/MM3 Metamyelocytes 2 % Differential Comment FINAL DIFF MANUAL Platelet Estimate NORMAL Platelet Morphology Comment NORMAL Red Cell Morphology Comment NORMAL Blood Urea Nitrogen 22 MG/DL Creatinine 0.48 MG/DL Random Glucose 158 MG/DL Total Protein 4.8 GM/DL Albumin 1.8 GM/DL Calcium Level 7.5 MG/DL Phosphorus Level 2.3 MG/DL Magnesium Level 2.3 MG/DL Alkaline Phosphatase 30 U/L Aspartate Amino Transf (AST/SGOT) 12 U/L Alanine Aminotransferase (ALT/SGPT) 19 U/L Total Bilirubin 0.1 MG/DL Potassium Level 3.4 MEQ/L Chloride Level 122 MEQ/L Carbon Dioxide Level 23.6 MEQ/L Anion Gap 7 MEQ/L Estimat Glomerular Filtration Rate 129 ML/MIN (Js Nj) Medical Decision Making Impression and Plan Impression: 1. Large frontal neoplasm noted on CT scan and previous MRI imaging. 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 Postoperative Diagnosis: (1) Meningioma, multiple (2) Parasagittal meningioma 1. Recurrent left parafalcine meningioma 2. 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 No evident seizure activity noted. Moves BLE to stimulation. Partial eye opening. Sedation held for evaluation. Bradycardia. Reviewed labs for today. Resolution of leukocytosis. Drop in haemoglobin level. Sodium 153. Hypokalemia. eGFR normal. Hypophosphatemia improved. CT brain demonstrates stable left frontal & posterior temporal region ventricular haemorrhage & edema w/slight mass effect [id number] shift of third ventricle measuring 3 mm. No new haemorrhage identified. EEG w/evidence of seizure activity mainly to the right frontal area which has frequent intermittent discharges throughout the tracing. (It is noted in Neurology's consult note that the area the seizures are originating from is the left frontal.) EEG w/some right hemisphere slowing, especially to the right frontal. DIANN drain with 60 mL for the past 24 hrs as of shift change this morning. POD #4 () s/p: Bifrontal craniotomy for resection 1. Left parafalcine meningioma 2. Bilateral cribriform plate -Planum sphenoidale meningioma 3. Use of frameless intraoperative stereotactic navigation for planning of the incision site and bone flap and resection of the parafalcine and frontal skull base neoplasm. Plan: Primary management per Hospitalist. Critical care management per Print Cutter. Seizure management per Neurology. Neuro checks. Stat CT brain for any decline in neuro status. Monitor DIANN drain output. Maintain SBP between 110 and 140 mm Hg. Appreciate Print Cutter's & Neurology's assistance in managing this critically ill patient. (Js Nj) Attending Statement The exam, history, and the medical decision-making described in the above note were completed with the assistance of the mid-level provider. I reviewed and agree with the findings presented. I attest that I had a [id number] encounter with the patient on the same day, and personally performed and documented my assessment and findings in the medical record. No overall change in examination on 01/29/18. Exam still suggestive of subclinical seizure activity. Continuing anticonvulsants. Neurology following Continuing ventilatory support (Tolu Herring MD) Js Nj Jan 29, 2018 09:31 Tolu Herring MD Jan 31, 2018 14:20
--- NOTE | 2018-01-29 10:52 | HHI.HCPN ---
Reason for visit a. To assist with evaluation and management of symptoms including: Encephalopathy, seizures b. To assist medical decision maker(s) with: better understanding of current medical conditions; weighing benefits/burdens of medical treatment options; making medical treatment decisions. (Kassi Tang) Subjective/Interval History Patient seen to follow-up on symptom management and goals of care. 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 She has been experiencing some seizures for which she is seeing neurology and has been placed on Cerebyx and Keppra. Most recent EEG did not show any noted seizure activity but did show some right frontal slowing in the right hemisphere. CT was noted to be negative. During sedation vacations she was noted to be moving lower extremities, not upper. Vital signs remained stable blood pressure 134/57, heart rate 59, respiratory rate 14, oxygen saturation 99% on 40% FiO2 via mechanical ventilation, afebrile. She has been mildly hypotensive requiring vasopressor support with phenylephrine. This is currently on hold. She is receiving low-dose fentanyl and propofol for sedation. Today's labs show WBC 8.8, hemoglobin 8.2, hematocrit 23.9, platelets 201, sodium 153, potassium 3.4, BUN 22, creatinine 0.48, phosphorus 2.3, magnesium 2.3, AST 12, ALT 19, alk phos 30, total protein 4.8, albumin 1.8. Tissue pathology from brain mass removal is pending. Chest x -ray shows well-placed stable lines, dense consolidation in the left base, unchanged with mild developing parenchymal opacity in the right base. . Family/friend interactions Patient is incapacitated at this time, her sister, Karla, remains her healthcare surrogate. This was discussed with patient prior to surgery when she was determined to be capacitated and she made no changes to that. Spoke with her sister to allow an information update to family. Sister to visit today and remains supportive of her sister's decision to undergo surgery to try to get well. . (Kassi Tang) Advance Directives Living Will: Never completed Health Care Surrogate: Never completed Durable Power of Valet Service Attendant: Never completed (Kassi Tang) Advance Directive Specifics Health Care Surrogate(s): Never completed. Documented care wishes: Never completed. . (Kassi Tang) Objective Vital Signs Date Time Temp Pulse Resp B/P (MAP) Pulse Ox O2 Delivery O2 Flow Rate FiO2 01/29/18 07:54 99 40 01/29/18 06:00 60 01/29/18 04:00 40 01/29/18 04:00 98.1 59 14 134/57 (82) 99 01/29/18 04:00 59 01/29/18 03:58 99 40 01/29/18 02:00 59 01/29/18 00:30 100 40 01/29/18 00:00 56 01/29/18 00:00 40 01/29/18 00:00 97.5 56 14 103/59 (74) 100 01/28/18 22:00 59 01/28/18 20:00 97.6 57 14 130/55 (80) 99 01/28/18 20:00 40 01/28/18 20:00 57 01/28/18 19:46 99 40 01/28/18 19:00 99 Mechanical Ventilator 40 01/28/18 18:56 57 146/66 01/28/18 18:37 57 142/77 01/28/18 18:00 52 01/28/18 16:00 97.9 56 14 103/61 (75) 99 01/28/18 16:00 40 01/28/18 16:00 56 01/28/18 15:43 100 40 01/28/18 14:14 99 40 01/28/18 14:00 58 01/28/18 14:00 58 95/54 01/28/18 12:00 40 01/28/18 12:00 56 01/28/18 12:00 98.5 56 14 120/68 (85) 99 01/28/18 10:32 100 40 Intake & Output 01/29/18 01/29/18 07:00 19:00 Intake Total 477 ml Output Total 710.0 ml Balance -233.0 ml IV Total 300 ml Tube Feeding 77 ml Tube Irrigant 100 ml Output Urine Total 400 ml Tube Feeding Residual Discard 280.0 ml Drainage Total 30 ml # Bowel Movements 0 Physical Exam CONSTITUTIONAL/GENERAL: This is an adequately nourished patient, intubated, sedated in no apparent distress. TUBES/LINES/DRAINS: Right PIV 2, left PIV 1, Hills catheter, ETT, OG T clamped , left subclavian central line, left cranial grenade drain, right femoral arterial line. NECK: Orally intubated. CARDIOVASCULAR: Regular rate and rhythm without murmurs, gallops, or rubs. No JVD. Peripheral pulses symmetric. RESPIRATORY/CHEST: Symmetric, unlabored respirations. Clear to auscultation. Breath sounds equal bilaterally. No wheezes, rales, or rhonchi. GASTROINTESTINAL: Abdomen soft, nondistended. No hepato-splenomegaly, or palpable masses. Bowel sounds present. GENITOURINARY: Without palpable bladder distension. Hills catheter intact MUSCULOSKELETAL: 1+ left lower extremity edema with purple bruising on the left foot, appears to be resolving. Right lower extremity with trace edema, tiny bruise seen on fourth right toe NEUROLOGICAL: Intubated, sedated. PSYCHIATRIC: Sedated. . (Kassi Tang) Diagnostic Tests Laboratory Laboratory Tests Test 01/26/18 11:30 01/26/18 18:30 01/26/18 20:19 01/26/18 23:43 Sodium Level 143 MEQ/L (136-145) 143 MEQ/L (136-145) 144 MEQ/L (136-145) Serum Osmolality 310 MOSM/KG (275-295) 313 MOSM/KG (275-295) 305 MOSM/KG (275-295) Urine Color YELLOW (YELLW/STRAW) Urine Turbidity CLEAR (CLEAR) Urine pH 5.5 (5.0-8.5) Urine Specific [place] 1.026 (1.002-1.035) Urine Protein TRACE mg/dL (NEG-TRACE) Urine Glucose (UA) 1000 mg/dL (NEG) Urine Ketones 10 mg/dL (NEG) Urine Occult Blood NEG (NEG) Urine Nitrite NEG (NEG) Urine Bilirubin NEG (NEG) Urine Urobilinogen LESS THAN 2.0 MG/DL (LESS Urine Leukocyte Esterase NEG (NEG) Urine RBC 2 /hpf (0-3) Urine WBC 3 /hpf (0-5) Urine Squamous Epithelial Cells <1 /hpf (0-5) Urine Uric Acid Crystals RARE /hpf (NONE) Urine Hyaline Casts 2 /lpf (RARE) Urine Mucus FEW /lpf (OCC) Microscopic Urinalysis Comment CULT NOT INDICATED Test 01/27/18 04:24 01/27/18 05:30 01/27/18 11:45 01/27/18 18:15 Blood Gas Puncture Site ART LINE Blood Gas Patient Temperature 98.6 Blood Gas HCO3 21 mmol/L (22-26) Blood Gas Base Excess -1.0 mmol/L (-2-2) Blood Gas Oxygen Saturation 95 % (90-100) Arterial Blood pH 7.54 (7.380-7.420) Arterial Blood Partial Pressure CO2 25 mmHg (38-42) Arterial Blood Partial Pressure O2 82 mmHg (61-120) Arterial Blood Oxygen Content 15.2 Vol % (12.0-20.0) Arterial Blood Carboxyhemoglobin 1.0 % (0-4) Arterial Blood Methemoglobin 1.4 % (0-2) Blood Gas Hemoglobin 11.4 G/DL (12.0-16.0) Oxygen Delivery Device VENTILATOR Blood Gas Ventilator Setting PRVC/AC Blood Gas Inspired Oxygen 65 % White Blood Count 17.5 TH/MM3 (4.0-11.0) Red Blood Count 3.20 MIL/MM3 (4.00-5.30) Hemoglobin 9.9 GM/DL (11.6-15.3) Hematocrit 28.3 % (35.0-46.0) Mean Corpuscular Volume 88.3 FL (80.0-100.0) Mean Corpuscular Hemoglobin 30.8 PG (27.0-34.0) Mean Corpuscular Hemoglobin Concent 34.8 % (32.0-36.0) Red Cell Distribution Width 13.4 % (11.6-17.2) Platelet Count 185 TH/MM3 (150-450) Mean Platelet Volume 7.6 FL (7.0-11.0) Neutrophils (%) (Auto) 93.5 % (16.0-70.0) Lymphocytes (%) (Auto) 3.3 % (9.0-44.0) Monocytes (%) (Auto) 3.0 % (0.0-8.0) Eosinophils (%) (Auto) 0.0 % (0.0-4.0) Basophils (%) (Auto) 0.2 % (0.0-2.0) Neutrophils # (Auto) 16.3 TH/MM3 (1.8-7.7) Lymphocytes # (Auto) 0.6 TH/MM3 (1.0-4.8) Monocytes # (Auto) 0.5 TH/MM3 (0-0.9) Eosinophils # (Auto) 0.0 TH/MM3 (0-0.4) Basophils # (Auto) 0.0 TH/MM3 (0-0.2) CBC Comment AUTO DIFF Differential Comment AUTO DIFF CONFIRMED Blood Urea Nitrogen 18 MG/DL (7-18) Creatinine 0.66 MG/DL (0.50-1.00) Random Glucose 257 MG/DL (74-106) Total Protein 4.9 GM/DL (6.4-8.2) Albumin 1.9 GM/DL (3.4-5.0) Calcium Level 7.4 MG/DL (8.5-10.1) Phosphorus Level 1.9 MG/DL (2.5-4.9) 2.7 MG/DL (2.5-4.9) Magnesium Level 2.2 MG/DL (1.5-2.5) Alkaline Phosphatase 30 U/L (45-117) Aspartate Amino Transf (AST/SGOT) 13 U/L (15-37) Alanine Aminotransferase (ALT/SGPT) 17 U/L (10-53) Total Bilirubin 0.3 MG/DL (0.2-1.0) Sodium Level 144 MEQ/L (136-145) 145 MEQ/L (136-145) Potassium Level 3.4 MEQ/L (3.5-5.1) 4.1 MEQ/L (3.5-5.1) Chloride Level 112 MEQ/L (98-107) Carbon Dioxide Level 22.4 MEQ/L (21.0-32.0) Anion Gap 10 MEQ/L (5-15) Estimat Glomerular Filtration Rate 89 ML/MIN (>89) Serum Osmolality 308 MOSM/KG (275-295) 310 MOSM/KG (275-295) 313 MOSM/KG (275-295) Protein Corrected Calcium 8.6 MG/DL (8.5-10.1) Test 01/28/18 00:00 01/28/18 04:20 01/28/18 16:10 01/28/18 23:30 Sodium Level 149 MEQ/L (136-145) 149 MEQ/L (136-145) 150 MEQ/L (136-145) 151 MEQ/L (136-145) Serum Osmolality 315 MOSM/KG (275-295) 317 MOSM/KG (275-295) 319 MOSM/KG (275-295) 318 MOSM/KG (275-295) White Blood Count 19.3 TH/MM3 (4.0-11.0) Red Blood Count 2.96 MIL/MM3 (4.00-5.30) Hemoglobin 9.0 GM/DL (11.6-15.3) Hematocrit 25.9 % (35.0-46.0) Mean Corpuscular Volume 87.6 FL (80.0-100.0) Mean Corpuscular Hemoglobin 30.6 PG (27.0-34.0) Mean Corpuscular Hemoglobin Concent 35.0 % (32.0-36.0) Red Cell Distribution Width 13.8 % (11.6-17.2) Platelet Count 223 TH/MM3 (150-450) Mean Platelet Volume 7.4 FL (7.0-11.0) CBC Comment AUTO DIFF Differential Total Cells Counted 100 Neutrophils % (Manual) 87 % (16-70) Band Neutrophils % 4 % (0-6) Lymphocytes % 5 % (9-44) Monocytes % 2 % (0-8) Neutrophils # (Manual) 17.9 TH/MM3 (1.8-7.7) Metamyelocytes 1 % (0-1) Myelocytes 1 % (0-0) Differential Comment FINAL DIFF MANUAL Platelet Estimate NORMAL (NORMAL) Platelet Morphology Comment NORMAL (NORMAL) Polychromasia 2.1 % (0.0-1.9) Red Cell Morphology Comment NORMAL (NORMAL) Blood Urea Nitrogen 16 MG/DL (7-18) Creatinine 0.40 MG/DL (0.50-1.00) Random Glucose 197 MG/DL (74-106) Total Protein 4.9 GM/DL (6.4-8.2) Albumin 1.8 GM/DL (3.4-5.0) Calcium Level 7.7 MG/DL (8.5-10.1) Phosphorus Level 2.1 MG/DL (2.5-4.9) Magnesium Level 2.3 MG/DL (1.5-2.5) Alkaline Phosphatase 33 U/L (45-117) Aspartate Amino Transf (AST/SGOT) 13 U/L (15-37) Alanine Aminotransferase (ALT/SGPT) 18 U/L (10-53) Total Bilirubin 0.2 MG/DL (0.2-1.0) Potassium Level 3.5 MEQ/L (3.5-5.1) Chloride Level 117 MEQ/L (98-107) Carbon Dioxide Level 23.3 MEQ/L (21.0-32.0) Anion Gap 9 MEQ/L (5-15) Estimat Glomerular Filtration Rate 159 ML/MIN (>89) Phenytoin (Dilantin) Level 17.9 MCG/ML (10.0-20.0) 11.4 MCG/ML (10.0-20.0) Test 01/29/18 05:35 White Blood Count 8.8 TH/MM3 (4.0-11.0) Red Blood Count 2.69 MIL/MM3 (4.00-5.30) Hemoglobin 8.2 GM/DL (11.6-15.3) Hematocrit 23.9 % (35.0-46.0) Mean Corpuscular Volume 89.0 FL (80.0-100.0) Mean Corpuscular Hemoglobin 30.4 PG (27.0-34.0) Mean Corpuscular Hemoglobin Concent 34.2 % (32.0-36.0) Red Cell Distribution Width 14.1 % (11.6-17.2) Platelet Count 201 TH/MM3 (150-450) Mean Platelet Volume 7.4 FL (7.0-11.0) Neutrophils (%) (Auto) 90.0 % (16.0-70.0) Lymphocytes (%) (Auto) 6.7 % (9.0-44.0) Monocytes (%) (Auto) 3.2 % (0.0-8.0) Eosinophils (%) (Auto) 0.0 % (0.0-4.0) Basophils (%) (Auto) 0.1 % (0.0-2.0) Neutrophils # (Auto) 7.9 TH/MM3 (1.8-7.7) Lymphocytes # (Auto) 0.6 TH/MM3 (1.0-4.8) Monocytes # (Auto) 0.3 TH/MM3 (0-0.9) Eosinophils # (Auto) 0.0 TH/MM3 (0-0.4) Basophils # (Auto) 0.0 TH/MM3 (0-0.2) CBC Comment AUTO DIFF Differential Total Cells Counted 100 Neutrophils % (Manual) 83 % (16-70) Band Neutrophils % 11 % (0-6) Lymphocytes % 1 % (9-44) Monocytes % 3 % (0-8) Neutrophils # (Manual) 8.4 TH/MM3 (1.8-7.7) Metamyelocytes 2 % (0-1) Differential Comment FINAL DIFF MANUAL Platelet Estimate NORMAL (NORMAL) Platelet Morphology Comment NORMAL (NORMAL) Red Cell Morphology Comment NORMAL (NORMAL) Blood Urea Nitrogen 22 MG/DL (7-18) Creatinine 0.48 MG/DL (0.50-1.00) Random Glucose 158 MG/DL (74-106) Total Protein 4.8 GM/DL (6.4-8.2) Albumin 1.8 GM/DL (3.4-5.0) Calcium Level 7.5 MG/DL (8.5-10.1) Phosphorus Level 2.3 MG/DL (2.5-4.9) Magnesium Level 2.3 MG/DL (1.5-2.5) Alkaline Phosphatase 30 U/L (45-117) Aspartate Amino Transf (AST/SGOT) 12 U/L (15-37) Alanine Aminotransferase (ALT/SGPT) 19 U/L (10-53) Total Bilirubin 0.1 MG/DL (0.2-1.0) Sodium Level 153 MEQ/L (136-145) Potassium Level 3.4 MEQ/L (3.5-5.1) Chloride Level 122 MEQ/L (98-107) Carbon Dioxide Level 23.6 MEQ/L (21.0-32.0) Anion Gap 7 MEQ/L (5-15) Estimat Glomerular Filtration Rate 129 ML/MIN (>89) Serum Osmolality 317 MOSM/KG (275-295) (Kassi Tang) Result Diagram: 01/29/18 0535 01/29/18 0535 Imaging Last Impressions Chest X-Ray 01/29/18 0600 Signed Impressions: Service Date/Time: Monday, January 29, 2018 04:20 - CONCLUSION: Slight interval worsening in aeration Tommie Solis MD Head CT 01/26/18 1220 Signed Impressions: Service Date/Time: Friday, January 26, 2018 13:48 - CONCLUSION: 1. Slight improvement in acute hemorrhage and edema in the frontal lobe since January 26 exam from earlier today with slightly less mass effect and midline shift. No new hemorrhage. Andrey Pearson MD Head CTA 01/25/18 0000 Signed Impressions: Service Date/Time: Thursday, January 25, 2018 17:59 - CONCLUSION: No acute vascular findings Tommie Solis MD Brain MRI 01/24/18 0000 Signed Impressions: Service Date/Time: December 10:18 - CONCLUSION: Large enhancing mass in the upper left frontal lobe as well as dural enhancement along the base of the skull anterior midline. Vern Boo MD Procedures 01/25/2018: Bifrontal craniotomy for resection of left parafalcine meningioma, bilateral cribriform plate-planum sphenoidale meningioma 01/26/2018: Left subclavian central line placement 01/26/2018: Right femoral arterial catheter placement . (Kassi Tang) Assessment and Plan Disease Oriented Problem List: (1) Brain mass (2) Confusion (3) Agitation Symptom Scale: (1) Confusion 0-10 Scale: Unable to quantify (Confusion is intermittent. Oriented to person place purpose and time at this evaluation.) (2) Agitation 0-10 Scale: Unable to quantify (Intermittent. No agitation at this time..) Pertinent Non-Medical Issues Psychosocial:She was born in [place] and moved to [place] in the mid s. She was never and has no children. 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 Spiritual: Spiritual in her own way but not associated with any organized episcopalian. Legal: Pending psychiatry consultation to determine capacity to make decisions. Ethical issues impacting care: Admitted under ex parte court order. . Important Contacts Sister: Karla Keller DCF electrical products sales engineer, Chelsey Bourgeois . Prognosis Her prognosis is guarded. It is unknown whether her intermittent confusion is secondary to baseline dementia or brain masses. She has been brought in under court order twice in the last month, once under a [place] act, the second 1 under an ex parte order. She has 2 very large masses in her brain, thought to be meningiomas, and is awaiting evaluation by neurosurgery to determine whether surgery is appropriate and if so when it would be scheduled. With surgery, she is at risk for surgical complications and postoperative deficits, without surgery she is at risk for further complications and decline. . Code Status: Full Code Plan PLAN: Legal decision maker: She is currently not capacitated as she is intubated and sedated. Per [place] statutes, her sister Karla Keller would be her healthcare decision maker. Goals: Aggressive at this time. CODE STATUS: FULL CODE SYMPTOMS: * Encephalopathy: She is status post craniotomy and electroencephalogram is showing slowing. She remains intubated and sedated at this time but when on sedation vacation is withdrawn only lower extremities. Pending clearance from neurology and critical care medicine to consider extubation. * Seizures: She is currently on Keppra and Cerebyx. Most recent EEG showed no seizure activity. Neurology is managing. No further recommendations at this time. Palliative care will continue to follow the patient during hospital course as condition evolves, to assist patient/decision-maker with understanding of their medical conditions, weighing benefits/burdens of treatment options, for clarification of goals of treatment. Additionally will assist with any symptoms of palliative concern. . (Kassi Tang) Attestation To help prompt me to consider important information that might be impacting today's encounter and assessment, information from prior notes written by myself or my colleagues may have been "brought forward" into today's note. My signature on this note, however, is an attestation that I personally performed the exam, history, and/or decision-making noted today, and, unless otherwise indicated, the interactions with patient, family, and staff as well as the review of records all occurred today. I also attest that the listed assessment and stated plan reflect my best clinical judgment today based on the combination of historical information, prior notes, and today's exam/ interactions. When time spent is documented, it refers only to time spent today by the signer, or if indicated, combined time spent today by collaborating physician/nurse practitioner. . (Kassi Tang) Collaborating MD Comments Chart reviewed. Case discussed with palliative care INTEGRITY ANALYST. Above INTEGRITY ANALYST note reviewed and I concur. . (Jeremie Small MD) Kassi Tang Jan 29, 2018 10:52 Jeremie Small MD Feb 04, 2018 05:36
[2018-01-29] MEDS: LABETALOL HCL 100 MG/20 ML VIAL IV PUSH PRN ×2 (11:52→20:20)
[2018-01-29] MEDS: niCARdipine INJ 25 MG in SODIUM CHLOR 0.9% 250 ML INJ 250 ML IV PRN (12:44)
[2018-01-29] MEDS: POTASSIUM CHLOR 20 MEQ PREMIX 100 ML IV PRN (14:37)
[2018-01-29] MEDS: fentaNYL DRIP 250 ML IV PRN (15:34)
--- NOTE | 2018-01-29 18:00 | HHI.CCPN ---
Subjective Remarks/Hospital Course 67-year-old female patient with history of a previous brain mass for which she underwent evaluation. She was after court order because she became aggressive and hostile at home. The patient lives with her mother, who has Alzheimer disease. The CT of the head performed in the emergency department showed an Extra-axial left frontal mass again seen with left to right midline shift, likely related to meningioma. She has undergone another tumor resection by Dr. Herring today. The patient remains postprocedure intubated, also the repeated postoperative CAT scan of the head show significant amount of brain edema. 01/26: FiO2 remains at 75%. Small left pleural effusion/atelectasis noted. Remains on 3% at [address] brain revealed stable cerebral edema with stable hemorrhage. Sedated on propofol drip at 40 mcg/kg/min 01/27: FiO2 down to 50%. Withdraws to pain bilateral upper and lower extremities. Currently on propofol drip at 45 mcg/kg/min. Tolerating tube feeds. 01/28: FiO2 down to 40%. Opens eyes to voice but currently not following commands. No tremor activity noted. Repeat EEG performed but results are pending. Currently levetiracetam and 1000 mg IV 3 times daily with phenytoin level at therapeutic levels Subjective 01/29: T-max 99. Currently afebrile. Noted right hemispheric slowing/sharps in the right central/frontal region. Currently levetiracetam thousand milligrams twice daily and fosphenytoin 100 mg 3 times daily. Tolerating CPAP. Neurologically opens eyes to voice withdraws bilateral lower extremities. Intermittent tremors upper extremity Objective Vital Signs Date Time Temp Pulse Resp B/P (MAP) Pulse Ox O2 Delivery O2 Flow Rate FiO2 01/29/18 16:00 98.8 72 16 140/78 (98) 99 01/29/18 16:00 40 01/29/18 07:00 Mechanical Ventilator Intake and Output 01/29/18 01/29/18 01/29/18 07:59 15:59 23:59 Intake Total 277 ml Output Total 710.0 ml Balance -433.0 ml Result Diagram: 01/29/18 0535 01/29/18 0535 Imaging Last Impressions Chest X-Ray 01/28/18 0600 Signed Impressions: Service Date/Time: Sunday, January 28, 2018 03:50 - CONCLUSION: No significant interval change Tommie Solis MD Head CT 01/26/18 1220 Signed Impressions: Service Date/Time: Friday, January 26, 2018 13:48 - CONCLUSION: 1. Slight improvement in acute hemorrhage and edema in the frontal lobe since January 26 exam from earlier today with slightly less mass effect and midline shift. No new hemorrhage. Andrey Pearson MD Head CTA 01/25/18 0000 Signed Impressions: Service Date/Time: Thursday, January 25, 2018 17:59 - CONCLUSION: No acute vascular findings Tommie Solis MD Brain MRI 01/24/18 0000 Signed Impressions: Service Date/Time: December 10:18 - CONCLUSION: Large enhancing mass in the upper left frontal lobe as well as dural enhancement along the base of the skull anterior midline. Vern Boo MD Procedures Left subclavian CVL 01/[address] Baldwin Left radial A-line placed in OR 01/25 Disinhibition Score: 14.00 Aggression Score: 14.00 Lability Score: 14.00 Agitated Behavior Total Score: 14 Objective Remarks GENERAL: 67-year-old female currently orotracheally intubated SKIN: Warm and dry. No rash HEAD: Post bifrontal craniectomy with karolina intact EYES: No scleral icterus. No injection or drainage. NECK: Supple, trachea midline. No JVD or lymphadenopathy. CARDIOVASCULAR: Regular rate and rhythm S1, S2 no S 4. Without murmurs, gallops , or rubs. RESPIRATORY: Breath sounds equal bilaterally. No accessory muscle use. GASTROINTESTINAL: Abdomen soft, non-tender, nondistended. MUSCULOSKELETAL: No significant peripheral edema. Left central line/subclavian is clean dry and intact. Ecchymosis to dorsal aspect left greater than right foot. BACK: Nontender without obvious deformity. NEURO EXAM: The patient is sedated and intubated. Heavily sedated Urinary Catheter: Yes Assessment to: Continue Hills insert reason: Prolonged Immobilization Vascular Central Line Catheter: Yes Assessment to: Continue Date of Insertion: Jan 25, 2018 Line: Central Venous Catheter Side: Left Location: Subclavian A/P Assessment and Plan Neuro/Psych: Postop day #4 bifrontal craniotomy for resection of left parafalcine meningioma , bilateral cribriform plate -Planum sphenoidale meningioma with use of frameless intraoperative stereotactic navigation for planning of the incision site and bone flap and resection of the parafalcine and frontal skull base neoplasm CT brain postoperative 01/25 revealed subcutaneous air/subarachnoid hemorrhage left temporal and right parietal region. 1.8 parenchymal hemorrhage left temporal region. Neuro basilar cisterns. Central sulci are effaced. CT brain 01/26 - Stable he is ventricle hemorrhage and edema in the left frontal and left posterior temporal regions. Slight mass effect left to right shift of the third ventricle measuring 3 mm. No new hemorrhage is identified. There may be slightly less and edema in the frontal lobes on the previous study but the change is minimal. Evaluated by psychiatry Dr. Costa and deemed competent Currently on propofol drip at 40 mcg/kg minute and 50 mcg/h fentanyl drip for sedation/analgesia while intubated Goal of RASS of -2 Daily sedation vacation when okay with Dr. Herring Remains on 3% hypertonic saline at 10 cc an hour due to cerebral edema. Goal sodium 150-155 Serial sodiums every 6 hours with serum serum osmolalities every 6 hours Remains on dexamethasone at 4 mg IV every 6 hours for brain mass. Management per neurosurgery Levetiracetam 1000 mg IV 3 times daily Currently fosphenytoin 100 mg IV every 8 hours. Level 17.2 this a.m. Recheck tomorrow 01/30 EEG 01/27 revealed sharps right frontal region. EEG 01/29 revealed right hemispheric sharps in the right frontal central region. Followed by neurology/ Dr. Lockwood. Antiepileptics as above. CV: Hypertension Written for nicardipine drip and labetalol/clonidine as needed to maintain systolic blood pressure less than 130 Reason for phenylephrine drip to maintain systolic blood pressure greater than 110 currently and 20 mcg/min Previously on nifedipine 30 mg sustained release daily. This is on hold while hypotensive Resp: Postoperative respiratory failure PRVC 18/500///40 Ventilator bundle Albuterol/ipratropium aerosols every 6 hours with albuterol aerosols every 2 hours as needed dyspnea Spontaneous breathing trials when clinically indicated Portable chest x-ray in a.m. 01/30 GI: Hypoalbuminemia Start tube feeding with Glucerna 1.5 goal 50 cc an hour. Nutrition recommended vital high-protein at 45 cc now. We will continue with hyperglycemia Lansoprazole 30 mg daily for GI prophylaxis Docusate sodium 100 mg twice daily/senna liquid 8.6 mg twice daily for bowel regimen : Hills catheter has been placed for accurate I's and O's in a critically ill patient Endo: Hyperglycemia of critical illness/steroid induced Continue on low-dose insulin detemir 15 units twice daily. 4 unit sliding scale insulin past 24 hours Sliding scale insulin/moderate regimen with Accu-Cheks every 4 hours to maintain euglycemia Novulog Renal: Creatinine currently within normal limits Monitor urine output Accurate I's and O's Heme: Normocytic anemia Monitor CBC daily. Follow trends ID: Monitor for signs and symptoms of infection FEN: Hypophosphatemia Hypokalemia Hypernatremia Patient is currently on 3% saline at 10 cc an hour for total of 5 days Serial sodiums every 6 hours. Goal 150-155 15 mmol K-Phos IV 1 now. Recheck in a.m. MSK: Physical therapy evaluate and treat Access -Left subclavian CVL placed 01/25 -Right femoral A-line placed 01/26 Prophylaxis -GI -lansoprazole -DVT -SCD/holding pharmacological prophylaxis in light of hemorrhage. Initiate when okay with neurosurgery Level 3 follow-up Jose Millan MD Jan 29, 2018 18:00
[2018-01-29] MEDS ORDERED: POTASSIUM PHOSPHATE INJ 15 MMOL in SODIUM CHLORIDE 0.9% INJ 150 ML IV ONE (20:00)
--- NOTE | 2018-01-29 21:22 | RADRPT ---
EXAM DATE/TIME: 01/29/2018 20:31 [facility] COMPARISON: No previous studies available for comparison. INDICATIONS : Left foot pain. MEDICAL HISTORY : Dementia, brain mass. SURGICAL HISTORY : Craniotomy. ENCOUNTER: Initial ACUITY: 1 day PAIN SCORE: Non-responsive. LOCATION: Left foot. FINDINGS: Two view examination of the left foot demonstrates no soft tissue swelling, dislocation, or fracture. The calcaneus is intact. Bony mineralization is normal. CONCLUSION: 1. No acute fracture. Mild degenerative change. Andrey Pearson MD on January 29, 2018 at 21:19 Board Certified Radiologist. This report was verified electronically.
--- NOTE | 2018-01-29 21:23 | RADRPT ---
EXAM DATE/TIME: 01/29/2018 20:36 [facility] COMPARISON: No previous studies available for comparison. INDICATIONS : Right foot pain. MEDICAL HISTORY : Dementia, Brain mass. SURGICAL HISTORY : Craniotomy. ENCOUNTER: Initial ACUITY: 1 day PAIN SCORE: Non-responsive. LOCATION: Right foot. FINDINGS: Two view examination of the right foot demonstrates no soft tissue swelling, dislocation, or fracture . The calcaneus is intact. Bony mineralization is normal. CONCLUSION: 1. No acute findings. Andrey Pearson MD on January 29, 2018 at 21:20 Board Certified Radiologist. This report was verified electronically.
[2018-01-30] VITALS (18 sets, daily range): BP systolic 107–186; BP diastolic 53–81; PULSE 69–96; RESP 14–27; TEMP 98–99.7; O2SAT 94–99
[2018-01-30] MEDS: LABETALOL HCL 100 MG/20 ML VIAL IV PUSH PRN ×2 (00:13→05:23)
[2018-01-30] MEDS: niCARdipine INJ 25 MG in SODIUM CHLOR 0.9% 250 ML INJ 250 ML IV PRN ×4 (03:39→11:30)
[2018-01-30] MEDS: INSULIN ASPART SUPPLEMENTAL SCALE SQ SCH ×6 (04:00→20:00)
[2018-01-30] MEDS: RESP: ALBUTEROL 2.5 MG/IPRATROPIUM 0.5 MG NEB (SCH) NEB ×4 (04:26→21:02)
[2018-01-30] MEDS: ARTIFICIAL TEARS OPTH SOLN 15 ML BTL EACH EYE SCH ×3 (05:44→21:13)
[2018-01-30] MEDS: FOSPHENYTOIN SODIUM 100 MG PE/2 ML VIAL IV SCH (05:44)
[2018-01-30] MEDS: levETIRAcetam INJ 100 ML IV SCH ×3 (05:44→22:22)
[2018-01-30] MEDS: DEXAMETHASONE 4 MG TAB PO SCH ×3 (05:44→18:23)
--- NOTE | 2018-01-30 05:57 | RADRPT ---
EXAM DATE/TIME: 01/30/2018 03:55 [facility] COMPARISON: CHEST SINGLE AP, January 29, 2018, 4:20. INDICATIONS : Shortness of breath. MEDICAL HISTORY : None. SURGICAL HISTORY : None. ENCOUNTER: Subsequent ACUITY: 1 week PAIN SCORE: Non-responsive. LOCATION: Bilateral chest FINDINGS: Endotracheal tube, nasogastric tube and left subclavian central line are stable. Aeration is slightly improved with improvement in lung bone and is a decrease in confluence of bilateral infiltrates. Car diac contours are grossly unchanged. CONCLUSION: Slight improvement in aeration Tommie Solis MD on January 30, 2018 at 5:54 Board Certified Radiologist. This report was verified electronically.
[2018-01-30] MEDS: PROPOFOL 1000 MG/100 ML INJ 100 ML IV PRN ×4 (06:01→23:35)
[2018-01-30 06:33] LABS: HEMATOCRIT 26.2 % (35.0-46.0); HEMOGLOBIN 9.2 GM/DL (11.6-15.3); MEAN CELL VOLUME 87.8 FL (80.0-100.0); MEAN CORPUSCULAR HEMOGLOBIN 30.8 PG (27.0-34.0); MEAN CORPUSCULAR HGB CONC 35.1 % (32.0-36.0); MEAN PLATELET VOLUME 7.1 FL (7.0-11.0); PLATELET COUNT 203 TH/MM3 (150-450); RED BLOOD COUNT 2.99 MIL/MM3 (4.00-5.30); RED CELL DISTRIBUTION WIDTH 14.2 % (11.6-17.2); WHITE BLOOD COUNT 9.1 TH/MM3 (4.0-11.0)
[2018-01-30 07:56] LABS: BANDS 13 % (0-6); LYMPHOCYTES 9 % (9-44); METAMYELOCYTES 8 % (0-1); MONOCYTES 2 % (0-8); MYELOCYTES 2 % (0-0); NEUTROPHIL # MANUAL DIFF 8.1 TH/MM3 (1.8-7.7); POLYS (SEG NEUTROPHILS) 66 % (16-70)
[2018-01-30] MEDS: CHLORHEXIDINE 0.12% (ORAL KIT) 15 ML CUP MT SCH ×2 (08:00→19:49)
[2018-01-30 08:56] LABS: MAGNESIUM 2.2 MG/DL (1.5-2.5); PHENYTOIN (DILANTIN) 11.9 MCG/ML (10.0-20.0); PHOSPHORUS 3.3 MG/DL (2.5-4.9)
[2018-01-30] MEDS: INSULIN DETEMIR 100 UNITS/ML VIAL SQ SCH ×2 (09:00→20:29)
[2018-01-30] MEDS: NYSTATIN 100,000 U/GM PWD 15 GM BTL TOPICAL SCH ×2 (09:00→19:50)
[2018-01-30] MEDS: SENNOSIDES SYRUP 8.8 MG/5 ML CUP PO SCH ×2 (09:00→19:50)
--- NOTE | 2018-01-30 09:26 | HHI.NSPN ---
(Js Nj) History Chief Complaint: Unable to obtain due to patient's clinical condition. (ClemJs) Interval History 01/18: This is a 67-year-old female patient with history of a previous brain mass for which she underwent evaluation. She was brought today to the emergency room after court order because she became aggressive and hostile at home, the patient lives with her mother, who has Alzheimer disease. She has been fighting with her sister and now she is being brought for medical evaluation and psychiatric evaluation. The patient reports that she was previously seen because of a brain tumor and she still has not decided what to do with it. 01/19: Patient history of brain tumor. 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 01/23: The patient is in the bathroom when seen. She is assisted up from the commode and uses a walker to ambulate back to her bed where she sits on the edge of it. She denies any headache or dizziness. She does state that her vision is off but she is not able to describe it any further. She has pain to the right elbow from a fall, otherwise she has no pain to the extremities. She denies any numbness or tingling to the extremities. She does have some difficulty finding the correct word she wants to use. No sensorimotor deficits are noted. 01/24: When seen this afternoon the patient is awake and alert talking with the [employer] Converter Utility Operator. She does endorse a slight headache this morning but denies any dizziness, visual problems or nausea. She does have some right elbow and left foot pain. She also says that she hurt both knees. Otherwise she has no pain into the extremities and denies any numbness or tingling to them. There is no change in her neuro exam from yesterday. 01/25: The patient went to the operating room for a bifrontal craniotomy for resection of a left parafalcine meningioma and a bilateral cribriform plate- planum sphenoidale meningioma. Post-operatively she was transferred to [facility] for further care and monitoring. 01/26: This morning the patient remains intubated and mechanically ventilated. She is sedated with propofol. A nicardipine drip is infusing for blood pressure control. She did withdraw the right hand and both feet to noxious stimulation upon examination. 01/27: The Barrelhead Inspector reported that the patient was having a subclinical seizure seen on the EEG this morning. When the patient was seen the bufferer had just completed the EEG and said the patient was having seizures to the right frontal. After being evaluated the patient was noted to have twitching of the first and second digits of the right hand briefly. She remains obtunded and is sedated with propofol. She is also still intubated and mechanically ventilated. She did move both feet to noxious stimulation. 01/28: No seizure activity noted when seen this morning. She continues to be obtunded but maximally sedated with propofol. She is still intubated and mechanically ventilated. She moved only the lower extremities slightly to local noxious stimulation and had partial left eye opening with central noxious stimulation. She was evaluated by Neurology yesterday who adjusted her antiepileptic medication. Another EEG is to be done this morning. 01/29: Repeat EEG done yesterday with right hemisphere slowing. When seen she is lethargic. She is still intubated and mechanically ventilated. The propofol is infusing for sedation. With sedation held she did partially open her eyes and responded to noxious stimulation to the lower extremities only. There is no significant change in her exam. 01/30: The patient's sedation and fentanyl have been held for a while prior to her being seen. She remains obtunded. She continues to be intubated and mechanically ventilated. She had no eye opening to stimulation. She did have some bilateral foot flexion with extension of the right knee to noxious stimulation. Her pupils did appear sluggish. Bilateral nystagmus is noted. (Js Nj) System Review Comments Unable to obtain due to patient's clinical condition. (Js Nj) Exam Results 01/28/18 01/28/18 01/29/18 01/29/18 01/30/18 01/30/18 06:00 18:00 06:00 18:00 06: 18:00 Intake Total 1635 ml 1351 ml 1527 ml 220 ml 965 ml Output Total 650 ml 405 ml 710.0 ml 1215 ml 2170 ml Balance 985 ml 946 ml 817.0 ml -995 ml -1205 ml IV Total 1200 ml 985 ml 1350 ml 220 ml 800 ml Tube Feeding 375 ml 306 ml 77 ml 105 ml Tube Irrigant 60 ml 100 ml 60 ml Other 60 ml Output Urine Total 600 ml 375 ml 400 ml 1175 ml 2150 ml Tube Feeding Residual Discard 0 ml 280.0 ml Drainage Total 50 ml 30 ml 30 ml 40 ml 20 ml # Bowel Movements 0 0 0 0 Vital Signs Date Time Temp Pulse Resp B/P (MAP) Pulse Ox O2 Delivery O2 Flow Rate FiO2 01/30/18 08:53 83 131/62 01/30/18 08:00 88 01/30/18 08:00 40 01/30/18 08:00 99.4 88 23 131/62 (85) 95 01/30/18 07:46 94 40 01/30/18 07:46 40 01/30/18 07:00 95 Mechanical Ventilator 40 01/30/18 06:02 88 132/61 01/30/18 06:00 89 01/30/18 04:27 96 40 01/30/18 04:00 99.7 78 16 186/81 (116) 99 01/30/18 04:00 40 01/30/18 04:00 78 01/30/18 03:39 72 157/77 01/30/18 02:00 70 01/30/18 00:36 99 40 01/30/18 00:00 40 01/30/18 00:00 98.9 75 14 154/68 (96) 99 01/30/18 00:00 75 01/29/18 22:00 72 01/29/18 20:16 97 40 01/29/18 20:00 98.8 95 17 139/67 (91) 97 01/29/18 20:00 95 01/29/18 20:00 40 01/29/18 19:00 99 Mechanical Ventilator 40 01/29/18 18:00 71 01/29/18 16:00 98.8 72 16 140/78 (98) 99 01/29/18 16:00 40 01/29/18 16:00 72 01/29/18 15:55 99 40 01/29/18 14:00 70 01/29/18 12:44 63 162/81 01/29/18 12:00 30 01/29/18 12:00 69 01/29/18 12:00 99.0 72 14 158/78 (104) 95 01/29/18 11:45 30 01/29/18 11:45 100 30 01/29/18 10:00 64 01/29/18 08:00 40 01/29/18 08:00 98.7 66 14 153/69 (97) 98 Arterial Line 01/29/18 08:00 64 01/29/18 07:54 99 40 01/29/18 07:00 100 Mechanical Ventilator 40 01/29/18 06:00 60 01/29/18 04:00 40 01/29/18 04:00 98.1 59 14 134/57 (82) 99 01/29/18 04:00 59 01/29/18 03:58 99 40 01/29/18 02:00 59 01/29/18 00:30 100 40 01/29/18 00:00 56 01/29/18 00:00 40 01/29/18 00:00 97.5 56 14 103/59 (74) 100 01/28/18 22:00 59 01/28/18 20:00 97.6 57 14 130/55 (80) 99 01/28/18 20:00 40 01/28/18 20:00 57 01/28/18 19:46 99 40 01/28/18 19:00 99 Mechanical Ventilator 40 01/28/18 18:56 57 146/66 18 18:37 57 142/77 18 18:00 52 18 16:00 97.9 56 14 103/61 (75) 99 18 16:00 40 18 16:00 56 18 15:43 100 40 18 14:14 99 40 01/28/18 14:00 58 18 14:00 58 95/54 01/28/18 12:00 40 18 12:00 56 18 12:00 98.5 56 14 120/68 (85) 99 18 10:32 100 40 01/28/18 10:00 60 01/28/18 09:10 56 122/70 4/2/18 08:32 98 40 01/28/18 08:00 40 01/28/18 08:00 97.7 56 14 122/72 (89) 98 01/28/18 08:00 57 01/28/18 07:00 97 Mechanical Ventilator 40 01/28/18 06:00 66 01/28/18 04:00 40 01/28/18 04:00 62 01/28/18 04:00 98.5 62 14 100 140/55 (83) 01/28/18 03:10 96 40 01/28/18 02:00 62 01/28/18 00:20 97 40 01/28/18 00:00 97.5 64 14 96 138/66 (90) 01/28/18 00:00 50 01/28/18 00:00 64 01/27/18 22:00 68 01/27/18 20:00 82 01/27/18 20:00 50 01/27/18 20:00 98.4 82 14 96 116/48 (70) 01/27/18 19:50 95 50 01/27/18 19:00 96 Mechanical Ventilator 50 01/27/18 18:41 75 135/55 01/27/18 18:30 72 143/51 01/27/18 18:00 72 01/27/18 17:18 74 114/45 01/27/18 16:52 95 50 01/27/18 16:00 97.6 73 14 94 106/43 (64) 01/27/18 16:00 65 01/27/18 16:00 73 01/27/18 14:00 78 01/27/18 13:02 93 50 01/27/18 12:00 96 01/27/18 12:00 65 01/27/18 12:00 98.5 96 14 95 136/57 (83) 01/27/18 11:38 94 55 01/27/18 10:22 81 119/47 (Js Nj) Physical Examination GENERAL: Obtunded, intubated & mechanically ventilated. The propofol & fentanyl drips are held and have been for a while. No apparent distress. HEENT: Normocephalic. Bilateral craniotomy surgical incision well-approximated w /karolina w/o any evident drainage, erythema or streaking, DIANN drain to bulb suction w/clearing serous-appearing drainage. PERRLA 3 mm and sluggish, nystagmus bilaterally. Orally intubated, OGT. MUSCULOSKELETAL: Moved BLE to noxious stimulation. NEUROLOGICAL: Obtunded w/sedation held for a while. Nonverbal, orally intubated. No eye opening to any stimulation. PERRLA 3 mm and sluggish. Nystagmus bilaterally. Did not follow any commands. Slight flexion of feet w/extension of right knee to local noxious stimulation but not central. No response w/BUE to any stimulation. 3% hypertonic saline infusing at 20 mL/hr. (Js Nj) Lab, Micro, Other Results Recent Impressions Chest X-Ray 01/30/18 06 Signed Impressions: Service Date/Time: Tuesday, January 30, 2018 03:55 - CONCLUSION: Slight improvement in aeration Tommie Solis MD Chest X-Ray 01/29/18 06 Signed Impressions: Service Date/Time: Monday, January 29, 2018 04:20 - CONCLUSION: Slight interval worsening in aeration Tommie Solis MD Foot X-Ray 01/29/18 0000 Signed Impressions: Service Date/Time: Monday, January 29, 2018 20:36 - CONCLUSION: 1. No acute findings. Andrey Pearson MD Foot X-Ray 01/29/18 0000 Signed Impressions: Service Date/Time: Monday, January 29, 2018 20:31 - CONCLUSION: 1. No acute fracture. Mild degenerative change. Andrey Pearson MD Chest X-Ray 01/28/18 06 Signed Impressions: Service Date/Time: Sunday, January 28, 2018 03:50 - CONCLUSION: No significant interval change Tommie Solis MD Laboratory Tests Test 01/27/18 11:45 01/27/18 18:15 01/28/18 00:00 01/28/18 04:20 Sodium Level 145 MEQ/L 149 MEQ/L 149 MEQ/L Serum Osmolality 310 MOSM/KG 313 MOSM/KG 315 MOSM/KG 317 MOSM/KG Potassium Level 4.1 MEQ/L 3.5 MEQ/L Phosphorus Level 2.7 MG/DL 2.1 MG/DL White Blood Count 19.3 TH/MM3 Red Blood Count 2.96 MIL/MM3 Hemoglobin 9.0 GM/DL Hematocrit 25.9 % Mean Corpuscular Volume 87.6 FL Mean Corpuscular Hemoglobin 30.6 PG Mean Corpuscular Hemoglobin Concent 35.0 % Red Cell Distribution Width 13.8 % Platelet Count 223 TH/MM3 Mean Platelet Volume 7.4 FL CBC Comment AUTO DIFF Differential Total Cells Counted 100 Neutrophils % (Manual) 87 % Band Neutrophils % 4 % Lymphocytes % 5 % Monocytes % 2 % Neutrophils # (Manual) 17.9 TH/MM3 Metamyelocytes 1 % Myelocytes 1 % Differential Comment FINAL DIFF MANUAL Platelet Estimate NORMAL Platelet Morphology Comment NORMAL Polychromasia 2.1 % Red Cell Morphology Comment NORMAL Blood Urea Nitrogen 16 MG/DL Creatinine 0.40 MG/DL Random Glucose 197 MG/DL Total Protein 4.9 GM/DL Albumin 1.8 GM/DL Calcium Level 7.7 MG/DL Magnesium Level 2.3 MG/DL Alkaline Phosphatase 33 U/L Aspartate Amino Transf (AST/SGOT) 13 U/L Alanine Aminotransferase (ALT/SGPT) 18 U/L Total Bilirubin 0.2 MG/DL Chloride Level 117 MEQ/L Carbon Dioxide Level 23.3 MEQ/L Anion Gap 9 MEQ/L Estimat Glomerular Filtration Rate 159 ML/MIN Phenytoin (Dilantin) Level 17.9 MCG/ML Test 01/28/18 16:10 01/28/18 23:30 01/29/18 05:35 01/29/18 18:30 Sodium Level 150 MEQ/L 151 MEQ/L 153 MEQ/L 150 MEQ/L Serum Osmolality 319 MOSM/KG 318 MOSM/KG 317 MOSM/KG 306 MOSM/KG Phenytoin (Dilantin) Level 11.4 MCG/ML White Blood Count 8.8 TH/MM3 Red Blood Count 2.69 MIL/MM3 Hemoglobin 8.2 GM/DL Hematocrit 23.9 % Mean Corpuscular Volume 89.0 FL Mean Corpuscular Hemoglobin 30.4 PG Mean Corpuscular Hemoglobin Concent 34.2 % Red Cell Distribution Width 14.1 % Platelet Count 201 TH/MM3 Mean Platelet Volume 7.4 FL Neutrophils (%) (Auto) 90.0 % Lymphocytes (%) (Auto) 6.7 % Monocytes (%) (Auto) 3.2 % Eosinophils (%) (Auto) 0.0 % Basophils (%) (Auto) 0.1 % Neutrophils # (Auto) 7.9 TH/MM3 Lymphocytes # (Auto) 0.6 TH/MM3 Monocytes # (Auto) 0.3 TH/MM3 Eosinophils # (Auto) 0.0 TH/MM3 Basophils # (Auto) 0.0 TH/MM3 CBC Comment AUTO DIFF Differential Total Cells Counted 100 Neutrophils % (Manual) 83 % Band Neutrophils % 11 % Lymphocytes % 1 % Monocytes % 3 % Neutrophils # (Manual) 8.4 TH/MM3 Metamyelocytes 2 % Differential Comment FINAL DIFF MANUAL Platelet Estimate NORMAL Platelet Morphology Comment NORMAL Red Cell Morphology Comment NORMAL Blood Urea Nitrogen 22 MG/DL Creatinine 0.48 MG/DL Random Glucose 158 MG/DL Total Protein 4.8 GM/DL Albumin 1.8 GM/DL Calcium Level 7.5 MG/DL Phosphorus Level 2.3 MG/DL Magnesium Level 2.3 MG/DL Alkaline Phosphatase 30 U/L Aspartate Amino Transf (AST/SGOT) 12 U/L Alanine Aminotransferase (ALT/SGPT) 19 U/L Total Bilirubin 0.1 MG/DL Potassium Level 3.4 MEQ/L Chloride Level 122 MEQ/L Carbon Dioxide Level 23.6 MEQ/L Anion Gap 7 MEQ/L Estimat Glomerular Filtration Rate 129 ML/MIN Test 01/30/18 00:00 01/30/18 05:55 01/30/18 06:25 Sodium Level 147 MEQ/L 146 MEQ/L Serum Osmolality 303 MOSM/KG 300 MOSM/KG White Blood Count 9.1 TH/MM3 Red Blood Count 2.99 MIL/MM3 Hemoglobin 9.2 GM/DL Hematocrit 26.2 % Mean Corpuscular Volume 87.8 FL Mean Corpuscular Hemoglobin 30.8 PG Mean Corpuscular Hemoglobin Concent 35.1 % Red Cell Distribution Width 14.2 % Platelet Count 203 TH/MM3 Mean Platelet Volume 7.1 FL CBC Comment AUTO DIFF Differential Total Cells Counted 100 Neutrophils % (Manual) 66 % Band Neutrophils % 13 % Lymphocytes % 9 % Monocytes % 2 % Neutrophils # (Manual) 8.1 TH/MM3 Metamyelocytes 8 % Myelocytes 2 % Differential Comment FINAL DIFF MANUAL Platelet Estimate NORMAL Platelet Morphology Comment NORMAL Red Cell Morphology Comment NORMAL Phosphorus Level 3.3 MG/DL Magnesium Level 2.2 MG/DL Phenytoin (Dilantin) Level 11.9 MCG/ML Urine Specific [place] 1.007 (Js Nj) Medical Decision Making Impression and Plan Impression: 1. Large frontal neoplasm noted on CT scan and previous MRI imaging. 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 Postoperative Diagnosis: (1) Meningioma, multiple (2) Parasagittal meningioma 1. Recurrent left parafalcine meningioma 2. 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 Nystagmus bilaterally, probable subclinical seizure activity. Flexion response of feet & extension of right knee to noxious stimulation. No eye opening but pupils sluggish. No sedation. T max 99.7 at midnight. No bradycardia the past 24 hrs. SBP intermittently outside of desired range. Reviewed labs for today. Improvement in haemoglobin level. Sodium 146. Hypophosphatemia resolved. CT brain demonstrates stable left frontal & posterior temporal region ventricular haemorrhage & edema w/slight mass effect [id number] shift of third ventricle measuring 3 mm. No new haemorrhage identified. EEG w/evidence of seizure activity mainly to the right frontal area which has frequent intermittent discharges throughout the tracing. (It is noted in Neurology's consult note that the area the seizures are originating from is the left frontal.) EEG w/some right hemisphere slowing, especially to the right frontal. DIANN drain with 60 mL for the past 24 hrs as of shift change this morning. POD #5 () s/p: Bifrontal craniotomy for resection 1. Left parafalcine meningioma 2. Bilateral cribriform plate -Planum sphenoidale meningioma 3. Use of frameless intraoperative stereotactic navigation for planning of the incision site and bone flap and resection of the parafalcine and frontal skull base neoplasm. Plan: Primary management per Hospitalist. Critical care management per Barrelhead Inspector. Seizure management per Neurology. Neuro checks. Stat CT brain for any decline in neuro status. Monitor DIANN drain output. Maintain SBP between 110 and 140 mm Hg. Spot EEG, may continue if positive. Appreciate Barrelhead Inspector's & Neurology's assistance in managing this critically ill patient. (Js Nj) Attending Statement The exam, history, and the medical decision-making described in the above note were completed with the assistance of the mid-level provider. I reviewed and agree with the findings presented. I attest that I had a [id number] encounter with the patient on the same day, and personally performed and documented my assessment and findings in the medical record. On my examination today, patient remains intubated and sedated. Pupils 5 mm right, 4 mm left, both reactive to 3 mm sluggish. Moderate, mildly disconjugate spontaneous extraocular movements. Mild right and moderate left eye opening to sternal rub. Not following commands Mild flexion upper extremities DP Follow-up EEG results noted. Persistent seizure activity off to prevent Keppra and Dilantin increased per neurology with phenobarbital added. Continue to prevent. Continue EEG monitoring. (Tolu Herring MD) Js Nj Jan 30, 2018 09:26 Tolu Herring MD Jan 30, 2018 21:29
[2018-01-30] MEDS: LANSOPRAZOLE SOLUTAB 30 MG TAB NG SCH (10:34)
[2018-01-30] MEDS: DOCUSATE SODIUM 100 MG/10 ML UDC PO SCH ×2 (10:34→19:50)
[2018-01-30] MEDS ORDERED: FOSPHENYTOIN INJ 300 MGPE in SODIUM CHLORIDE 0.9% INJ 50 ML IV ONE (14:00)
--- NOTE | 2018-01-30 14:07 | HHI.HCPN ---
Reason for visit a. To assist with evaluation and management of symptoms including: Encephalopathy, seizures b. To assist medical decision maker(s) with: better understanding of current medical conditions; weighing benefits/burdens of medical treatment options; making medical treatment decisions. (Kassi Tang) Subjective/Interval History Patient seen to follow-up on symptom management and goals of care. 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 She has been experiencing some seizures for which she is seeing neurology and has been placed on Cerebyx and Keppra. She has some partial eye opening today. Pupils are sluggish, right greater than left with bilateral nystagmus noted, suspicious for subclinical seizure activity. She remains on propofol for sedation. She is undergoing a continuous EEG to monitor for seizure activity. She is undergoing spontaneous breathing trial which started at 7: 50 a.m. on 40% FiO2, 5 PEEP, 10 pressure support. Oxygen saturation remains adequate with mild tachypnea, 24 breaths per minute. She has some withdrawal to pain in lower extremities only. Vital signs remained stable blood pressure 152/75, heart rate 91, respiratory rate 24, oxygen saturation 94% on 40% FiO2 on CPAP, T-MAX 99.7. She is receiving propofol for sedation. Today's labs show WBC 9.1, hemoglobin 9.2, hematocrit 26.2, platelets 203, sodium 142, phosphorus 3.3, magnesium 2.2. Tissue pathology from brain mass removal showed meningioma. Endotracheal tube, nasogastric tube and left subclavian central line are stable. Aeration is slightly improved with improvement in lung bone and is a decrease in confluence of bilateral infiltrates. Cardiac contours are grossly unchanged. . Family/friend interactions Spoke with the patient's sister, who at this time is serving as the decision- maker due to the patient's continued incapacity. Updated her as to current clinical condition, answered questions, and reviewed studies. She plans to visit tomorrow, . Will continue to update as needed. . (Kassi Tang) Advance Directives Living Will: Never completed Health Care Surrogate: Never completed Durable Power of Resource Teacher: Never completed (Kassi Tang) Advance Directive Specifics Health Care Surrogate(s): Never completed. Documented care wishes: Never completed. . (Kassi Tang) Objective Vital Signs Date Time Temp Pulse Resp B/P (MAP) Pulse Ox O2 Delivery O2 Flow Rate FiO2 01/30/18 11:37 94 40 01/30/18 11:30 91 152/75 01/30/18 10:00 86 01/30/18 08:53 83 131/62 01/30/18 08:00 88 01/30/18 08:00 40 01/30/18 08:00 99.4 88 23 131/62 (85) 95 01/30/18 07:46 94 40 01/30/18 07:46 40 01/30/18 07:00 95 Mechanical Ventilator 40 01/30/18 06:02 88 132/61 01/30/18 06:00 89 01/30/18 04:27 96 40 01/30/18 04:00 99.7 78 16 186/81 (116) 99 01/30/18 04:00 40 01/30/18 04:00 78 01/30/18 03:39 72 157/77 01/30/18 02:00 70 01/30/18 00:36 99 40 01/30/18 00:00 40 01/30/18 00:00 98.9 75 14 154/68 (96) 99 01/30/18 00:00 75 01/29/18 22:00 72 01/29/18 20:16 97 40 01/29/18 20:00 98.8 95 17 139/67 (91) 97 01/29/18 20:00 95 01/29/18 20:00 40 01/29/18 19:00 99 Mechanical Ventilator 40 01/29/18 18:00 71 01/29/18 16:00 98.8 72 16 140/78 (98) 99 01/29/18 16:00 40 01/29/18 16:00 72 01/29/18 15:55 99 40 01/29/18 14:00 70 Intake & Output 01/30/18 01/30/18 07:00 19:00 Intake Total 965 ml Output Total 2170 ml Balance -1205 ml IV Total 800 ml Tube Feeding 105 ml Tube Irrigant 60 ml Output Urine Total 2150 ml Drainage Total 20 ml # Bowel Movements 0 Physical Exam CONSTITUTIONAL/GENERAL: This is an adequately nourished patient, intubated, sedated in no apparent distress. TUBES/LINES/DRAINS: Right PIV 2, left PIV 1, Hills catheter, ETT, OG T clamped , left subclavian central line, left cranial grenade drain, right femoral arterial line. NECK: Orally intubated. CARDIOVASCULAR: Regular rate and rhythm without murmurs, gallops, or rubs. No JVD. Peripheral pulses symmetric. RESPIRATORY/CHEST: Symmetric, unlabored respirations. Clear to auscultation. Breath sounds equal bilaterally. No wheezes, rales, or rhonchi. GASTROINTESTINAL: Abdomen soft, nondistended. No hepato-splenomegaly, or palpable masses. Bowel sounds present. GENITOURINARY: Without palpable bladder distension. Hills catheter intact MUSCULOSKELETAL: 1+ left lower extremity edema with purple bruising on the left foot, appears to be resolving. Right lower extremity with trace edema, tiny bruise seen on fourth right toe NEUROLOGICAL: Intubated, sedated. Pupils 3 mm, equal, sluggishly reactive, no nystagmus noted. Withdraws to pain in lower extremities. PSYCHIATRIC: Sedated. . (Kassi Tang) Diagnostic Tests Laboratory Laboratory Tests Test 01/27/18 18:15 01/28/18 00:00 01/28/18 04:20 01/28/18 16:10 Potassium Level 4.1 MEQ/L (3.5-5.1) 3.5 MEQ/L (3.5-5.1) Serum Osmolality 313 MOSM/KG (275-295) 315 MOSM/KG (275-295) 317 MOSM/KG (275-295) 319 MOSM/KG (275-295) Phosphorus Level 2.7 MG/DL (2.5-4.9) 2.1 MG/DL (2.5-4.9) Sodium Level 149 MEQ/L (136-145) 149 MEQ/L (136-145) 150 MEQ/L (136-145) White Blood Count 19.3 TH/MM3 (4.0-11.0) Red Blood Count 2.96 MIL/MM3 (4.00-5.30) Hemoglobin 9.0 GM/DL (11.6-15.3) Hematocrit 25.9 % (35.0-46.0) Mean Corpuscular Volume 87.6 FL (80.0-100.0) Mean Corpuscular Hemoglobin 30.6 PG (27.0-34.0) Mean Corpuscular Hemoglobin Concent 35.0 % (32.0-36.0) Red Cell Distribution Width 13.8 % (11.6-17.2) Platelet Count 223 TH/MM3 (150-450) Mean Platelet Volume 7.4 FL (7.0-11.0) CBC Comment AUTO DIFF Differential Total Cells Counted 100 Neutrophils % (Manual) 87 % (16-70) Band Neutrophils % 4 % (0-6) Lymphocytes % 5 % (9-44) Monocytes % 2 % (0-8) Neutrophils # (Manual) 17.9 TH/MM3 (1.8-7.7) Metamyelocytes 1 % (0-1) Myelocytes 1 % (0-0) Differential Comment FINAL DIFF MANUAL Platelet Estimate NORMAL (NORMAL) Platelet Morphology Comment NORMAL (NORMAL) Polychromasia 2.1 % (0.0-1.9) Red Cell Morphology Comment NORMAL (NORMAL) Blood Urea Nitrogen 16 MG/DL (7-18) Creatinine 0.40 MG/DL (0.50-1.00) Random Glucose 197 MG/DL (74-106) Total Protein 4.9 GM/DL (6.4-8.2) Albumin 1.8 GM/DL (3.4-5.0) Calcium Level 7.7 MG/DL (8.5-10.1) Magnesium Level 2.3 MG/DL (1.5-2.5) Alkaline Phosphatase 33 U/L (45-117) Aspartate Amino Transf (AST/SGOT) 13 U/L (15-37) Alanine Aminotransferase (ALT/SGPT) 18 U/L (10-53) Total Bilirubin 0.2 MG/DL (0.2-1.0) Chloride Level 117 MEQ/L (98-107) Carbon Dioxide Level 23.3 MEQ/L (21.0-32.0) Anion Gap 9 MEQ/L (5-15) Estimat Glomerular Filtration Rate 159 ML/MIN (>89) Phenytoin (Dilantin) Level 17.9 MCG/ML (10.0-20.0) 11.4 MCG/ML (10.0-20.0) Test 01/28/18 23:30 01/29/18 05:35 01/29/18 18:30 01/30/18 00:00 Sodium Level 151 MEQ/L (136-145) 153 MEQ/L (136-145) 150 MEQ/L (136-145) 147 MEQ/L (136-145) Serum Osmolality 318 MOSM/KG (275-295) 317 MOSM/KG (275-295) 306 MOSM/KG (275-295) 303 MOSM/KG (275-295) White Blood Count 8.8 TH/MM3 (4.0-11.0) Red Blood Count 2.69 MIL/MM3 (4.00-5.30) Hemoglobin 8.2 GM/DL (11.6-15.3) Hematocrit 23.9 % (35.0-46.0) Mean Corpuscular Volume 89.0 FL (80.0-100.0) Mean Corpuscular Hemoglobin 30.4 PG (27.0-34.0) Mean Corpuscular Hemoglobin Concent 34.2 % (32.0-36.0) Red Cell Distribution Width 14.1 % (11.6-17.2) Platelet Count 201 TH/MM3 (150-450) Mean Platelet Volume 7.4 FL (7.0-11.0) Neutrophils (%) (Auto) 90.0 % (16.0-70.0) Lymphocytes (%) (Auto) 6.7 % (9.0-44.0) Monocytes (%) (Auto) 3.2 % (0.0-8.0) Eosinophils (%) (Auto) 0.0 % (0.0-4.0) Basophils (%) (Auto) 0.1 % (0.0-2.0) Neutrophils # (Auto) 7.9 TH/MM3 (1.8-7.7) Lymphocytes # (Auto) 0.6 TH/MM3 (1.0-4.8) Monocytes # (Auto) 0.3 TH/MM3 (0-0.9) Eosinophils # (Auto) 0.0 TH/MM3 (0-0.4) Basophils # (Auto) 0.0 TH/MM3 (0-0.2) CBC Comment AUTO DIFF Differential Total Cells Counted 100 Neutrophils % (Manual) 83 % (16-70) Band Neutrophils % 11 % (0-6) Lymphocytes % 1 % (9-44) Monocytes % 3 % (0-8) Neutrophils # (Manual) 8.4 TH/MM3 (1.8-7.7) Metamyelocytes 2 % (0-1) Differential Comment FINAL DIFF MANUAL Platelet Estimate NORMAL (NORMAL) Platelet Morphology Comment NORMAL (NORMAL) Red Cell Morphology Comment NORMAL (NORMAL) Blood Urea Nitrogen 22 MG/DL (7-18) Creatinine 0.48 MG/DL (0.50-1.00) Random Glucose 158 MG/DL (74-106) Total Protein 4.8 GM/DL (6.4-8.2) Albumin 1.8 GM/DL (3.4-5.0) Calcium Level 7.5 MG/DL (8.5-10.1) Phosphorus Level 2.3 MG/DL (2.5-4.9) Magnesium Level 2.3 MG/DL (1.5-2.5) Alkaline Phosphatase 30 U/L (45-117) Aspartate Amino Transf (AST/SGOT) 12 U/L (15-37) Alanine Aminotransferase (ALT/SGPT) 19 U/L (10-53) Total Bilirubin 0.1 MG/DL (0.2-1.0) Potassium Level 3.4 MEQ/L (3.5-5.1) Chloride Level 122 MEQ/L (98-107) Carbon Dioxide Level 23.6 MEQ/L (21.0-32.0) Anion Gap 7 MEQ/L (5-15) Estimat Glomerular Filtration Rate 129 ML/MIN (>89) Test 01/30/18 05:55 01/30/18 06:25 01/30/18 12:10 White Blood Count 9.1 TH/MM3 (4.0-11.0) Red Blood Count 2.99 MIL/MM3 (4.00-5.30) Hemoglobin 9.2 GM/DL (11.6-15.3) Hematocrit 26.2 % (35.0-46.0) Mean Corpuscular Volume 87.8 FL (80.0-100.0) Mean Corpuscular Hemoglobin 30.8 PG (27.0-34.0) Mean Corpuscular Hemoglobin Concent 35.1 % (32.0-36.0) Red Cell Distribution Width 14.2 % (11.6-17.2) Platelet Count 203 TH/MM3 (150-450) Mean Platelet Volume 7.1 FL (7.0-11.0) CBC Comment AUTO DIFF Differential Total Cells Counted 100 Neutrophils % (Manual) 66 % (16-70) Band Neutrophils % 13 % (0-6) Lymphocytes % 9 % (9-44) Monocytes % 2 % (0-8) Neutrophils # (Manual) 8.1 TH/MM3 (1.8-7.7) Metamyelocytes 8 % (0-1) Myelocytes 2 % (0-0) Differential Comment FINAL DIFF MANUAL Platelet Estimate NORMAL (NORMAL) Platelet Morphology Comment NORMAL (NORMAL) Red Cell Morphology Comment NORMAL (NORMAL) Sodium Level 146 MEQ/L (136-145) 142 MEQ/L (136-145) Serum Osmolality 300 MOSM/KG (275-295) 299 MOSM/KG (275-295) Phosphorus Level 3.3 MG/DL (2.5-4.9) Magnesium Level 2.2 MG/DL (1.5-2.5) Phenytoin (Dilantin) Level 11.9 MCG/ML (10.0-20.0) Urine Specific Soldier 1.007 (1.002-1.035) (Kassi Tang) Result Diagram: 01/30/18 0555 01/30/18 1210 Imaging Last Impressions Chest X-Ray 01/30/18 0600 Signed Impressions: Service Date/Time: Tuesday, January 30, 2018 03:55 - CONCLUSION: Slight improvement in aeration Tommie Solis MD Foot X-Ray 01/29/18 0000 Signed Impressions: Service Date/Time: Monday, January 29, 2018 20:36 - CONCLUSION: 1. No acute findings. Andrey Pearson MD Head CT 01/26/18 1220 Signed Impressions: Service Date/Time: Friday, January 26, 2018 13:48 - CONCLUSION: 1. Slight improvement in acute hemorrhage and edema in the frontal lobe since January 26 exam from earlier today with slightly less mass effect and midline shift. No new hemorrhage. Andrey Pearson MD Head CTA 01/25/18 0000 Signed Impressions: Service Date/Time: Thursday, January 25, 2018 17:59 - CONCLUSION: No acute vascular findings Tommie Solis MD Brain MRI 01/24/18 0000 Signed Impressions: Service Date/Time: December 10:18 - CONCLUSION: Large enhancing mass in the upper left frontal lobe as well as dural enhancement along the base of the skull anterior midline. Vern Boo MD Procedures 01/25/2018: Bifrontal craniotomy for resection of left parafalcine meningioma, bilateral cribriform plate-planum sphenoidale meningioma 01/25/2018: Continued intubation status post surgery. 01/26/2018: Left subclavian central line placement 01/26/2018: Right femoral arterial catheter placement . Other Pathology TISSUE: 1. LEFT FRONTAL PARAFALCINE NEOPLASM 2. LEFT CRIBIFORM PLATE NEOPLASM GROSS DESCRIPTION: #1- Two focally friable firm pink red ovoid portions of tissue 5.0 x 3.5 x 1.0 cm and 6.0 x 4.5 x 2.0 cm. Both have one surface that is smooth and shiny. Sectioning both reveals wong white to pink red cut surfaces. RSS 6. A-C- smaller portion, D-F- larger portion. #2- 3.0 x 2.7 x 0.5 cm aggregate of firm pink red and pink white fragments of tissue. TE 2. DXN/chris FINAL DIAGNOSIS: #1- LEFT FRONTAL PARAFALCINE NEOPLASM, EXCISION: MENINGIOMA. #2- LEFT CRIBRIFORM PLATE NEOPLASM, EXCISION: FRAGMENTS OF MENINGIOMA. . (Kassi Tang) Assessment and Plan Disease Oriented Problem List: (1) Brain mass (2) Confusion (3) Agitation Symptom Scale: (1) Confusion 0-10 Scale: Unable to quantify (Confusion is intermittent. Oriented to person place purpose and time at this evaluation.) (2) Agitation 0-10 Scale: Unable to quantify (Intermittent. No agitation at this time..) Pertinent Non-Medical Issues Psychosocial:She was born in [place] and moved to [place] in the mid s. She was never and has no children. 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 Spiritual: Spiritual in her own way but not associated with any organized denominational. Legal: Pending psychiatry consultation to determine capacity to make decisions. Ethical issues impacting care: Admitted under ex parte court order. . Important Contacts Sister: Karla Keller DCF produce department supervisor, Chelsey Bourgeois . Prognosis Her prognosis is guarded. It is unknown whether her intermittent confusion is secondary to baseline dementia or brain masses. She has been brought in under court order twice in the last month, once under a [place] act, the second 1 under an ex parte order. She has 2 very large masses in her brain, thought to be meningiomas, and is awaiting evaluation by neurosurgery to determine whether surgery is appropriate and if so when it would be scheduled. With surgery, she is at risk for surgical complications and postoperative deficits, without surgery she is at risk for further complications and decline. . Code Status: Full Code Plan PLAN: Legal decision maker: She is currently not capacitated as she is intubated and sedated. Per [place] statutes, her sister Karla Keller would be her healthcare decision maker. Goals: Aggressive at this time. CODE STATUS: FULL CODE SYMPTOMS: * Encephalopathy: She is status post craniotomy and electroencephalogram is showing right frontal slowing, no seizures. Today patient demonstrated nice nystagmus and continuous EEG is in process to evaluate for subclinical seizures. She remains intubated and sedated at this time but when on sedation vacation is withdrawn only lower extremities. Undergoing spontaneous breathing trials. * Seizures: She is currently on Keppra and Cerebyx. Most recent EEG showed no seizure activity. This morning's clinical exam revealing nice nystagmus, undergoing continuous EEG. Palliative care will continue to follow the patient during hospital course as condition evolves, to assist patient/decision-maker with understanding of their medical conditions, weighing benefits/burdens of treatment options, for clarification of goals of treatment. Additionally will assist with any symptoms of palliative concern. . (Kassi Tang) Attestation To help prompt me to consider important information that might be impacting today's encounter and assessment, information from prior notes written by myself or my colleagues may have been "brought forward" into today's note. My signature on this note, however, is an attestation that I personally performed the exam, history, and/or decision-making noted today, and, unless otherwise indicated, the interactions with patient, family, and staff as well as the review of records all occurred today. I also attest that the listed assessment and stated plan reflect my best clinical judgment today based on the combination of historical information, prior notes, and today's exam/ interactions. When time spent is documented, it refers only to time spent today by the signer, or if indicated, combined time spent today by collaborating physician/nurse practitioner. . (Kassi Tang) Collaborating MD Comments Chart reviewed. Case discussed with palliative care ADMISSION DISCHARGE RN. Above ADMISSION DISCHARGE RN note reviewed and I concur. . (Jeremie Small MD) Kassi Tang Jan 30, 2018 14:07 Jeremie Small MD Feb 04, 2018 05:43
[2018-01-30] MEDS: PHENobarbital INJ 90 MG in SODIUM CHLORIDE 0.9% INJ 50 ML IV SCH ×2 (14:09→19:49)
--- NOTE | 2018-01-30 17:53 | HHI.CCPN ---
Subjective Remarks/Hospital Course 67-year-old female patient with history of a previous brain mass for which she underwent evaluation. She was after court order because she became aggressive and hostile at home. The patient lives with her mother, who has Alzheimer disease. The CT of the head performed in the emergency department showed an Extra-axial left frontal mass again seen with left to right midline shift, likely related to meningioma. She has undergone another tumor resection by Dr. Herring today. The patient remains postprocedure intubated, also the repeated postoperative CAT scan of the head show significant amount of brain edema. 01/26: FiO2 remains at 75%. Small left pleural effusion/atelectasis noted. Remains on 3% at [address] brain revealed stable cerebral edema with stable hemorrhage. Sedated on propofol drip at 40 mcg/kg/min 01/27: FiO2 down to 50%. Withdraws to pain bilateral upper and lower extremities. Currently on propofol drip at 45 mcg/kg/min. Tolerating tube feeds. 01/28: FiO2 down to 40%. Opens eyes to voice but currently not following commands. No tremor activity noted. Repeat EEG performed but results are pending. Currently levetiracetam and 1000 mg IV 3 times daily with phenytoin level at therapeutic levels Subjective 01/29: T-max 99. Currently afebrile. Noted right hemispheric slowing/sharps in the right central/frontal region. Currently levetiracetam thousand milligrams twice daily and fosphenytoin 100 mg 3 times daily. Tolerating CPAP. Neurologically opens eyes to voice withdraws bilateral lower extremities. Intermittent tremors upper extremity 01/30: no neuro exam changes noted. nsgy noticed some facial twitching and repeat EEG ordered, but no change in baseline neuro exam. Objective Vital Signs Date Time Temp Pulse Resp B/P (MAP) Pulse Ox O2 Delivery O2 Flow Rate FiO2 01/30/18 16:01 97 40 01/30/18 16:00 81 01/30/18 16:00 99.0 24 130/64 (86) 01/30/18 07:00 Mechanical Ventilator Intake and Output 01/30/18 01/30/18 01/31/18 08:00 16:00 00:00 Intake Total 765 ml 206 ml Output Total 2170 ml Balance -1405 ml 206 ml Result Diagram: 01/30/18 0555 01/30/18 1210 Imaging Last Impressions Chest X-Ray 01/28/18 0600 Signed Impressions: Service Date/Time: Sunday, January 28, 2018 03:50 - CONCLUSION: No significant interval change Tommie Solis MD Head CT 01/26/18 1220 Signed Impressions: Service Date/Time: Friday, January 26, 2018 13:48 - CONCLUSION: 1. Slight improvement in acute hemorrhage and edema in the frontal lobe since January 26 exam from earlier today with slightly less mass effect and midline shift. No new hemorrhage. Andrey Pearson MD Head CTA 01/25/18 0000 Signed Impressions: Service Date/Time: Thursday, January 25, 2018 17:59 - CONCLUSION: No acute vascular findings Tommie Solis MD Brain MRI 01/24/18 0000 Signed Impressions: Service Date/Time: December 10:18 - CONCLUSION: Large enhancing mass in the upper left frontal lobe as well as dural enhancement along the base of the skull anterior midline. Vern Boo MD Procedures Left subclavian CVL 01/[address] Baldwin Left radial A-line placed in OR 01/25 Disinhibition Score: 14.00 Aggression Score: 14.00 Lability Score: 14.00 Agitated Behavior Total Score: 14 Objective Remarks GENERAL: 67-year-old female currently orotracheally intubated SKIN: Warm and dry. No rash HEAD: Post bifrontal craniectomy with karolina intact EYES: No scleral icterus. No injection or drainage. NECK: Supple, trachea midline. No JVD. CARDIOVASCULAR: Regular rate and rhythm. sinus RESPIRATORY: equal chest rise. No accessory muscle use. GASTROINTESTINAL: Abdomen soft, non-tender, nondistended. MUSCULOSKELETAL: No significant peripheral edema. Left central line/subclavian is clean dry and intact. Ecchymosis to dorsal aspect left greater than right foot. NEURO EXAM: The patient is sedated and intubated. Heavily sedated Date of Insertion: Jan 25, 2018 Line: Central Venous Catheter Side: Left Location: Subclavian A/P Assessment and Plan Neuro/Psych: Postop day #5 bifrontal craniotomy for resection of left parafalcine meningioma , bilateral cribriform plate -Planum sphenoidale meningioma with use of frameless intraoperative stereotactic navigation for planning of the incision site and bone flap and resection of the parafalcine and frontal skull base neoplasm CT brain postoperative 01/25 revealed subcutaneous air/subarachnoid hemorrhage left temporal and right parietal region. 1.8 parenchymal hemorrhage left temporal region. Neuro basilar cisterns. Central sulci are effaced. CT brain 01/26 - Stable he is ventricle hemorrhage and edema in the left frontal and left posterior temporal regions. Slight mass effect left to right shift of the third ventricle measuring 3 mm. No new hemorrhage is identified. There may be slightly less and edema in the frontal lobes on the previous study but the change is minimal. Evaluated by psychiatry Dr. Costa and deemed competent Currently on propofol drip at 40 mcg/kg minute and 50 mcg/h fentanyl drip for sedation/analgesia while intubated Goal of RASS of -2 Daily sedation vacation when okay with Dr. Herring Serial sodiums every 6 hours with serum serum osmolalities every 6 hours Remains on dexamethasone at 4 mg IV every 6 hours for brain mass. Management per neurosurgery Levetiracetam 1000 mg IV 3 times daily Currently fosphenytoin 100 mg IV every 8 hours. Level 17.2 this a.m. Recheck tomorrow 01/30 EEG 01/27 revealed sharps right frontal region. EEG 01/29 revealed right hemispheric sharps in the right frontal central region. Followed by neurology/ Dr. Lockwood. Antiepileptics as above. CV: Hypertension Written for nicardipine drip and labetalol/clonidine as needed to maintain systolic blood pressure less than 130 Previously on nifedipine 30 mg sustained release daily. Resp: Postoperative respiratory failure PRVC 18/500/40 Ventilator bundle Albuterol/ipratropium aerosols every 6 hours with albuterol aerosols every 2 hours as needed dyspnea Spontaneous breathing trials when clinically indicated Portable chest x-ray in a.m. 01/30 GI: Hypoalbuminemia Tube feeding with Glucerna 1.5 goal 50 cc an hour. Nutrition recommended vital high-protein at 45 cc now. We will continue with hyperglycemia Lansoprazole 30 mg daily for GI prophylaxis Docusate sodium 100 mg twice daily/senna liquid 8.6 mg twice daily for bowel regimen : Hills catheter has been placed for accurate I's and O's in a critically ill patient Endo: Hyperglycemia of critical illness/steroid induced Continue on low-dose insulin detemir 15 units twice daily. 4 unit sliding scale insulin past 24 hours Sliding scale insulin/moderate regimen with Accu-Cheks every 4 hours to maintain euglycemia Novulog Renal: Creatinine currently within normal limits Monitor urine output Accurate I's and O's Heme: Normocytic anemia Monitor CBC daily. Follow trends ID: Monitor for signs and symptoms of infection FEN: Hypophosphatemia Hypokalemia Hypernatremia Serial sodiums every 6 hours. 15 mmol K-Phos IV 1 now. Recheck in a.m. MSK: Physical therapy evaluate and treat Access -Left subclavian CVL placed 01/25 Prophylaxis -GI -lansoprazole -DVT -SCD/holding pharmacological prophylaxis in light of hemorrhage. Initiate when okay with neurosurgery Marky Bravo MD Jan 30, 2018 17:53
--- NOTE | 2018-01-30 18:15 | HHI.PR ---
Review/Management Diagnosis s/p meningioma resection with left frontal sz---sz resolved with cerebyx and keppra and resuming of diprivan Plan Increase ceerebyx maintenance to 100 mg iv Q 6 hr and give bolus of 300 mg to increase phenytoin level start phenobarbital Diagnosis/Plan: Subjective Subjective Comments Pt developed recurrent sz clinically and on eeg when diprivan held. Now diprivan resumed with resolution of sz. Active Medications Current Medications Medications (Trade) Dose Ordered Sig/Yancy Route Start Time Stop Time Status Last Admin (Catapres) 0.1 mg Q6H PRN PO 01/18/18 19:30 01/22/18 13:06 Nicardipine HCl 25 mg/Sodium Chloride 260 ml @ 52 mls/hr TITRATE PRN IV 01/25/18 19:15 01/30/18 11:30 (Brethine Inj) 1 mg UNSCH PRN SQ 01/25/18 19:15 Sodium Chloride 500 ml @ 10 mls/hr UNSCH PRN IV 01/25/18 19:45 01/30/18 19:44 01/28/18 18:37 (Peridex 0.12% Liq) 15 ml BID@08,20 MT 01/25/18 20:00 01/30/18 08:00 Propofol 100 ml @ 2.709 mls/ hr TITRATE PRN IV 01/25/18 20:00 01/30/18 15:26 (Prevacid Odt) 30 mg DAILY NG 01/26/18 09:00 01/30/18 10:34 (Trandate Inj) 10 mg Q1HR PRN IV PUSH 01/26/18 07:15 01/30/18 05:23 (Tears Naturale Opth Soln) 1 drop Q8HR EACH EYE 01/26/18 14:00 01/30/18 14:50 (Albuterol Neb) 2.5 mg Q2HR NEB PRN NEB 01/26/18 07:15 01/29/18 20:12 (Tylenol 650 Mg/ 20 ml Liq) 650 mg Q6H PRN PO 01/26/18 07:15 (Colace Liq) 100 mg Q12HR PO 01/26/18 09:00 01/30/18 10:34 (Senna Liq) 8.8 mg BID PO 01/26/18 09:00 01/30/18 09:00 Potassium Chloride 100 ml @ 50 mls/hr Q2H PRN IV 01/26/18 07:45 Potassium Chloride 100 ml @ 50 mls/hr Q2H PRN IV 01/26/18 07:45 (K-Lyte Cl Eff) 50 meq UNSCH PRN PO 01/26/18 07:45 Potassium Chloride 100 ml @ 25 mls/hr UNSCH PRN IV 01/26/18 07:45 Potassium Chloride 100 ml @ 50 mls/hr Q2H PRN IV 01/26/18 07:45 01/29/18 14:37 Magnesium Sulfate 4 gm/Sodium Chloride 100 ml @ 50 mls/hr UNSCH PRN IV 01/26/18 07:45 (Mag-Ox) 800 mg UNSCH PRN PO 01/26/18 07:45 Magnesium Sulfate 2 gm/Sodium Chloride 100 ml @ 50 mls/hr UNSCH PRN IV 01/26/18 07:45 (K-Phos) 2,000 mg Q4H PRN PO 01/26/18 07:45 Sodium Phosphate 30 mmol/Sodium Chloride 250 ml @ 42 mls/hr UNSCH PRN IV 01/26/18 07:45 (K-Phos) 2,000 mg UNSCH PRN PO/TUBE 01/26/18 07:45 Potassium Phosphate 30 mmol/ Sodium Chloride 260 ml @ 42 mls/hr UNSCH PRN IV 01/26/18 07:45 01/28/18 09:09 (Mycostatin Powder) 1 applic Q12HR TOPICAL 01/26/18 21:00 01/30/18 09:00 (Levemir Inj) 15 units BID SQ 01/27/18 21:00 01/28/18 21:24 Fentanyl Citrate 250 ml @ 5 mls/hr TITRATE PRN IV 01/27/18 12:15 01/29/18 15:34 Levetriacetam 100 ml @ 400 mls/hr Q8HR IV 01/28/18 06:00 01/30/18 14:11 Phenylephrine HCl 40 mg/Sodium Chloride 500 ml @ 30 mls/hr TITRATE PRN IV 01/28/18 09:00 01/28/18 09:10 (D50w (Vial) Inj) 50 ml UNSCH PRN IV PUSH 01/28/18 17:30 01/29/18 20:03 (Glucagon Inj) 1 mg UNSCH PRN OTHER 01/28/18 17:30 (NovoLOG SUPPLEMENTAL SCALE) 1 Q4HR SQ 01/28/18 20:00 01/30/18 12:16 (Duoneb Neb) 1 ampule Q6HR NEB NEB 01/29/18 22:00 01/30/18 16:01 (Decadron) 4 mg Q6HR PO 01/29/18 18:00 01/30/18 11:38 Phenobarbital Sodium 90 mg/ Sodium Chloride 50.6923 ml @ 202.769 mls/hr Q6H IV 01/30/18 14:00 01/30/18 14:09 Fosphenytoin Sodium 100 mgpe/ Sodium Chloride 52 ml @ 104 mls/hr Q6H IV 01/30/18 20:00 Allergies Allergies Coded Allergies No Allergy Information Available (Unverified01/18/18) Exam I&O / VS 01/30/18 01/30/18 01/31/18 15:00 23:00 07:00 Intake Total 206 ml 100 ml Output Total 3000 ml Balance 206 ml -2900 ml IV Total 206 ml Tube Feeding 100 ml Output Urine Total 2975 ml Drainage Total 25 ml Vital Signs Date Time Temp Pulse Resp B/P (MAP) Pulse Ox O2 Delivery O2 Flow Rate FiO2 01/30/18 16:01 97 40 01/30/18 16:00 40 01/30/18 16:00 81 01/30/18 16:00 99.0 81 24 130/64 (86) 97 01/30/18 14:00 86 01/30/18 12:00 96 01/30/18 12:00 98.0 96 27 117/55 (75) 96 01/30/18 12:00 40 01/30/18 11:37 94 40 01/30/18 11:30 91 152/75 01/30/18 10:00 86 01/30/18 08:53 83 131/62 01/30/18 08:00 88 01/30/18 08:00 40 01/30/18 08:00 99.4 88 23 131/62 (85) 95 01/30/18 07:46 94 40 01/30/18 07:46 40 01/30/18 07:00 95 Mechanical Ventilator 40 01/30/18 06:02 88 132/61 01/30/18 06:00 89 01/30/18 04:27 96 40 01/30/18 04:00 99.7 78 16 186/81 (116) 99 01/30/18 04:00 40 01/30/18 04:00 78 01/30/18 03:39 72 157/77 01/30/18 02:00 70 01/30/18 00:36 99 40 01/30/18 00:00 40 01/30/18 00:00 98.9 75 14 154/68 (96) 99 01/30/18 00:00 75 01/29/18 22:00 72 01/29/18 20:16 97 40 01/29/18 20:00 98.8 95 17 139/67 (91) 97 01/29/18 20:00 95 01/29/18 20:00 40 01/29/18 19:00 99 Mechanical Ventilator 40 Exam Comments nonresponsive CN intact MOTOR--no spontaneous limb movement , no sz. Objective Micro and Labs Laboratory Tests Test 01/29/18 18:30 01/30/18 00:00 01/30/18 05:55 01/30/18 06:25 Sodium Level 150 147 146 Serum Osmolality 306 303 300 White Blood Count 9.1 Red Blood Count 2.99 Hemoglobin 9.2 Hematocrit 26.2 Mean Corpuscular Volume 87.8 Mean Corpuscular Hemoglobin 30.8 Mean Corpuscular Hemoglobin Concent 35.1 Red Cell Distribution Width 14.2 Platelet Count 203 Mean Platelet Volume 7.1 CBC Comment AUTO DIFF Differential Total Cells Counted 100 Neutrophils % (Manual) 66 Band Neutrophils % 13 Lymphocytes % 9 Monocytes % 2 Neutrophils # (Manual) 8.1 Metamyelocytes 8 Myelocytes 2 Differential Comment FINAL DIFF MANUAL Platelet Estimate NORMAL Platelet Morphology Comment NORMAL Red Cell Morphology Comment NORMAL Phosphorus Level 3.3 Magnesium Level 2.2 Phenytoin (Dilantin) Level 11.9 Urine Specific [place] 1.007 Test 01/30/18 12:10 Sodium Level 142 Serum Osmolality 299 Diagnostic Tests Continuous EEG telemetry--generalized slowing in delta range with occasional small left frontal spikes Campbell Lockwood MD PhD Jan 30, 2018 18:15
[2018-01-30] MEDS: FOSPHENYTOIN INJ 100 MGPE in SODIUM CHLORIDE 0.9% INJ 50 ML IV SCH (19:49)
[2018-01-31] VITALS (18 sets, daily range): BP systolic 102–146; BP diastolic 56–67; PULSE 69–82; RESP 18; TEMP 98.6–99.1; O2SAT 92–100
[2018-01-31] MEDS: FOSPHENYTOIN INJ 100 MGPE in SODIUM CHLORIDE 0.9% INJ 50 ML IV SCH ×4 (02:41→21:11)
[2018-01-31] MEDS: PHENobarbital INJ 90 MG in SODIUM CHLORIDE 0.9% INJ 50 ML IV SCH ×4 (02:42→20:26)
[2018-01-31] MEDS: PROPOFOL 1000 MG/100 ML INJ 100 ML IV PRN ×5 (03:21→21:58)
[2018-01-31] MEDS: INSULIN ASPART SUPPLEMENTAL SCALE SQ SCH ×6 (04:00→20:00)
[2018-01-31] MEDS: RESP: ALBUTEROL 2.5 MG/IPRATROPIUM 0.5 MG NEB (SCH) NEB ×4 (04:03→22:14)
[2018-01-31] MEDS: levETIRAcetam INJ 100 ML IV SCH ×3 (05:43→21:54)
[2018-01-31] MEDS: DEXAMETHASONE 4 MG TAB PO SCH ×3 (05:43→12:41)
[2018-01-31] MEDS: ARTIFICIAL TEARS OPTH SOLN 15 ML BTL EACH EYE SCH ×3 (05:43→20:15)
[2018-01-31 06:25] LABS: HEMATOCRIT 23.8 % (35.0-46.0); HEMOGLOBIN 8.2 GM/DL (11.6-15.3); MEAN CELL VOLUME 88.3 FL (80.0-100.0); MEAN CORPUSCULAR HEMOGLOBIN 30.6 PG (27.0-34.0); MEAN CORPUSCULAR HGB CONC 34.6 % (32.0-36.0); MEAN PLATELET VOLUME 7.7 FL (7.0-11.0); PLATELET COUNT 184 TH/MM3 (150-450); RED BLOOD COUNT 2.69 MIL/MM3 (4.00-5.30); WHITE BLOOD COUNT 9.5 TH/MM3 (4.0-11.0)
[2018-01-31 07:04] LABS: BICARBONATE 23.1 MEQ/L (21.0-32.0); CALCIUM 7.5 MG/DL (8.5-10.1); CREATININE 0.48 MG/DL (0.50-1.00)
--- NOTE | 2018-01-31 08:09 | MG ---
cc: Smith Rodrigues MD TEST NUMBER: [id number]. DESCRIPTION: Sedated. Diprivan. Seizures, nystagmus, hypertension. Decadron, Keppra. Head injury, fentanyl, Diprivan. Recording shows almost PLED-like discharges out of the right central and frontal head region, occurring about every second to 1/2 second throughout much of the recording and this continues throughout the recording on a background of some diffuse 5 Hz slowing. Photic stimulation and hyperventilation were not performed. IMPRESSION: Right frontocentral periodic lateralized epileptiform discharge-like activity, consistent with a seizure focus and a focal abnormality in the right frontocentral head region. MD KILO Montelongo/LUCI , 08:33 PM , 08:50 PM
[2018-01-31] MEDS: LANSOPRAZOLE SOLUTAB 30 MG TAB NG SCH (08:58)
[2018-01-31] MEDS: INSULIN DETEMIR 100 UNITS/ML VIAL SQ SCH ×2 (09:00→20:43)
[2018-01-31] MEDS: CHLORHEXIDINE 0.12% (ORAL KIT) 15 ML CUP MT SCH ×2 (09:01→20:15)
--- NOTE | 2018-01-31 09:18 | HHI.NSPN ---
(Js Nj) History Chief Complaint: Unable to obtain due to patient's clinical condition. (ClemJs) Interval History 01/18: This is a 67-year-old female patient with history of a previous brain mass for which she underwent evaluation. She was brought today to the emergency room after court order because she became aggressive and hostile at home, the patient lives with her mother, who has Alzheimer disease. She has been fighting with her sister and now she is being brought for medical evaluation and psychiatric evaluation. The patient reports that she was previously seen because of a brain tumor and she still has not decided what to do with it. 01/19: Patient history of brain tumor. 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 01/23: The patient is in the bathroom when seen. She is assisted up from the commode and uses a walker to ambulate back to her bed where she sits on the edge of it. She denies any headache or dizziness. She does state that her vision is off but she is not able to describe it any further. She has pain to the right elbow from a fall, otherwise she has no pain to the extremities. She denies any numbness or tingling to the extremities. She does have some difficulty finding the correct word she wants to use. No sensorimotor deficits are noted. 01/24: When seen this afternoon the patient is awake and alert talking with the Sliver Chopper. She does endorse a slight headache this morning but denies any dizziness, visual problems or nausea. She does have some right elbow and left foot pain. She also says that she hurt both knees. Otherwise she has no pain into the extremities and denies any numbness or tingling to them. There is no change in her neuro exam from yesterday. 01/25: The patient went to the operating room for a bifrontal craniotomy for resection of a left parafalcine meningioma and a bilateral cribriform plate- planum sphenoidale meningioma. Post-operatively she was transferred to [facility] for further care and monitoring. 01/26: This morning the patient remains intubated and mechanically ventilated. She is sedated with propofol. A nicardipine drip is infusing for blood pressure control. She did withdraw the right hand and both feet to noxious stimulation upon examination. 01/27: The Tool Room Attendant reported that the patient was having a subclinical seizure seen on the EEG this morning. When the patient was seen the community arts worker had just completed the EEG and said the patient was having seizures to the right frontal. After being evaluated the patient was noted to have twitching of the first and second digits of the right hand briefly. She remains obtunded and is sedated with propofol. She is also still intubated and mechanically ventilated. She did move both feet to noxious stimulation. 01/28: No seizure activity noted when seen this morning. She continues to be obtunded but maximally sedated with propofol. She is still intubated and mechanically ventilated. She moved only the lower extremities slightly to local noxious stimulation and had partial left eye opening with central noxious stimulation. She was evaluated by Neurology yesterday who adjusted her antiepileptic medication. Another EEG is to be done this morning. 01/29: Repeat EEG done yesterday with right hemisphere slowing. When seen she is lethargic. She is still intubated and mechanically ventilated. The propofol is infusing for sedation. With sedation held she did partially open her eyes and responded to noxious stimulation to the lower extremities only. There is no significant change in her exam. 01/30: The patient's sedation and fentanyl have been held for a while prior to her being seen. She remains obtunded. She continues to be intubated and mechanically ventilated. She had no eye opening to stimulation. She did have some bilateral foot flexion with extension of the right knee to noxious stimulation. Her pupils did appear sluggish. Bilateral nystagmus is noted. 01/31: When seen this morning the patient is obtunded and having a continuous EEG. Nursing did report that the patient was started on phenobarbital yesterday and her fosphenytoin was adjusted. She is also on levetiracetam as well for the seizures. Her propofol is infusing at the maximum dose. She had slight withdrawal of the lower extremities to noxious stimulation upon examination which is the same as what Nursing said the patient did for her. No nystagmus noted. (Js Nj) System Review Comments Unable to obtain due to patient's clinical condition. (Js Nj) Exam Results 01/29/18 01/29/18 01/30/18 01/30/18 01/31/18 01/31/18 06:00 18:00 06:00 18:00 06:00 18:00 Intake Total 1527 ml 220 ml 965 ml 306 ml 599 ml 200 ml Output Total 710.0 ml 1215 ml 2170 ml 4325 ml 520.0 ml Balance 817.0 ml -995 ml -1205 ml -4019 ml 79.0 ml 200 ml IV Total 1350 ml 220 ml 800 ml 206 ml 400 ml 200 ml Tube Feeding 77 ml 105 ml 100 ml 139 ml Tube Irrigant 100 ml 60 ml 60 ml Output Urine Total 400 ml 1175 ml 2150 ml 4300 ml 400 ml Tube Feeding Residual Discard 280.0 ml 100.0 ml Drainage Total 30 ml 40 ml 20 ml 25 ml 20 ml # Bowel Movements 0 0 0 Vital Signs Date Time Temp Pulse Resp B/P (MAP) Pulse Ox O2 Delivery O2 Flow Rate FiO2 01/31/18 07:33 97 40 01/31/18 06:00 70 01/31/18 04:04 96 40 01/31/18 04:00 69 01/31/18 04:00 99.1 69 18 127/66 (86) 95 01/31/18 04:00 40 01/31/18 02:00 70 01/31/18 00:20 95 40 01/31/18 00:00 40 01/31/18 00:00 98.7 71 18 121/60 (80) 92 01/31/18 00:00 71 01/30/18 22:00 69 01/30/18 21:03 98 40 01/30/18 20:00 98.2 74 20 107/53 (71) 97 01/30/18 20:00 74 01/30/18 20:00 40 01/30/18 19:00 97 Mechanical Ventilator 40 01/30/18 18:00 78 01/30/18 16:01 97 40 01/30/18 16:00 40 01/30/18 16:00 81 01/30/18 16:00 99.0 81 24 130/64 (86) 97 01/30/18 14:00 86 01/30/18 12:00 96 01/30/18 12:00 98.0 96 27 117/55 (75) 96 01/30/18 12:00 40 01/30/18 11:37 94 40 01/30/18 11:30 91 152/75 01/30/18 10:00 86 01/30/18 08:53 83 131/62 01/30/18 08:00 88 01/30/18 08:00 40 01/30/18 08:00 99.4 88 23 131/62 (85) 95 01/30/18 07:46 94 40 01/30/18 07:46 40 01/30/18 07:00 95 Mechanical Ventilator 40 01/30/18 06:02 88 132/61 01/30/18 06:00 89 01/30/18 04:27 96 40 01/30/18 04:00 99.7 78 16 186/81 (116) 99 01/30/18 04:00 40 01/30/18 04:00 78 01/30/18 03:39 72 157/77 01/30/18 02:00 70 01/30/18 00:36 99 40 01/30/18 00:00 40 01/30/18 00:00 98.9 75 14 154/68 (96) 99 01/30/18 00:00 75 01/29/18 22:00 72 01/29/18 20:16 97 40 01/29/18 20:00 98.8 95 17 139/67 (91) 97 01/29/18 20:00 95 01/29/18 20:00 40 01/29/18 19:00 99 Mechanical Ventilator 40 01/29/18 18:00 71 01/29/18 16:00 98.8 72 16 140/78 (98) 99 01/29/18 16:00 40 01/29/18 16:00 72 01/29/18 15:55 99 40 01/29/18 14:00 70 01/29/18 12:44 63 162/81 01/29/18 12:00 30 01/29/18 12:00 69 01/29/18 12:00 99.0 72 14 158/78 (104) 95 01/29/18 11:45 30 01/29/18 11:45 100 30 01/29/18 10:00 64 01/29/18 08:00 40 01/29/18 08:00 98.7 66 14 153/69 (97) 98 Arterial Line 01/29/18 08:00 64 01/29/18 07:54 99 40 01/29/18 07:00 100 Mechanical Ventilator 40 01/29/18 06:00 60 01/29/18 04:00 40 01/29/18 04:00 98.1 59 14 134/57 (82) 99 01/29/18 04:00 59 01/29/18 03:58 99 40 01/29/18 02:00 59 01/29/18 00:30 100 40 01/29/18 00:00 56 01/29/18 00:00 40 01/29/18 00:00 97.5 56 14 103/59 (74) 100 01/28/18 22:00 59 01/28/18 20:00 97.6 57 14 130/55 (80) 99 01/28/18 20:00 40 01/28/18 20:00 57 01/28/18 19:46 99 40 01/28/18 19:00 99 Mechanical Ventilator 40 01/28/18 18:56 57 146/66 01/28/18 18:37 57 142/77 01/28/18 18:00 52 01/28/18 16:00 97.9 56 14 103/61 (75) 99 01/28/18 16:00 40 01/28/18 16:00 56 01/28/18 15:43 100 40 01/28/18 14:14 99 40 01/28/18 14:00 58 01/28/18 14:00 58 95/54 01/28/18 12:00 40 01/28/18 12:00 56 01/28/18 12:00 98.5 56 14 120/68 (85) 99 01/28/18 10:32 100 40 01/28/18 10:00 60 (Js Nj) Physical Examination GENERAL: Obtunded, intubated & mechanically ventilated. She has propofol infusing at 50 mcg/kg/min. No apparent distress. HEENT: Normocephalic. EEG leads to scalp w/intact dressing to hold in place. DIANN drain to bulb suction w/clearing serous-appearing drainage. PERRLA 3 mm and sluggish, no nystagmus. Orally intubated, OGT. MUSCULOSKELETAL: Moved BLE to noxious stimulation. NEUROLOGICAL: Obtunded but sedated. Nonverbal, orally intubated. No eye opening to any stimulation. PERRLA 3 mm and sluggish. No nystagmus noted. Did not follow any commands. Slight withdrawal/flexion response of BLE to local noxious stimulation but not central. No response to BUE w/stimulation. (Js Nj) Lab, Micro, Other Results Recent Impressions Chest X-Ray 01/30/18 0600 Signed Impressions: Service Date/Time: Tuesday, January 30, 2018 03:55 - CONCLUSION: Slight improvement in aeration Tommie Solis MD Chest X-Ray 01/29/18 0600 Signed Impressions: Service Date/Time: Monday, January 29, 2018 04:20 - CONCLUSION: Slight interval worsening in aeration Tommie Solis MD Foot X-Ray 01/29/18 0000 Signed Impressions: Service Date/Time: Monday, January 29, 2018 20:36 - CONCLUSION: 1. No acute findings. Andrey Pearson MD Foot X-Ray 01/29/18 0000 Signed Impressions: Service Date/Time: Monday, January 29, 2018 20:31 - CONCLUSION: 1. No acute fracture. Mild degenerative change. Andrey Pearson MD Laboratory Tests Test 01/28/18 16:10 01/28/18 23:30 01/29/18 05:35 01/29/18 18:30 Sodium Level 150 MEQ/L 151 MEQ/L 153 MEQ/L 150 MEQ/L Serum Osmolality 319 MOSM/KG 318 MOSM/KG 317 MOSM/KG 306 MOSM/KG Phenytoin (Dilantin) Level 11.4 MCG/ML White Blood Count 8.8 TH/MM3 Red Blood Count 2.69 MIL/MM3 Hemoglobin 8.2 GM/DL Hematocrit 23.9 % Mean Corpuscular Volume 89.0 FL Mean Corpuscular Hemoglobin 30.4 PG Mean Corpuscular Hemoglobin Concent 34.2 % Red Cell Distribution Width 14.1 % Platelet Count 201 TH/MM3 Mean Platelet Volume 7.4 FL Neutrophils (%) (Auto) 90.0 % Lymphocytes (%) (Auto) 6.7 % Monocytes (%) (Auto) 3.2 % Eosinophils (%) (Auto) 0.0 % Basophils (%) (Auto) 0.1 % Neutrophils # (Auto) 7.9 TH/MM3 Lymphocytes # (Auto) 0.6 TH/MM3 Monocytes # (Auto) 0.3 TH/MM3 Eosinophils # (Auto) 0.0 TH/MM3 Basophils # (Auto) 0.0 TH/MM3 CBC Comment AUTO DIFF Differential Total Cells Counted 100 Neutrophils % (Manual) 83 % Band Neutrophils % 11 % Lymphocytes % 1 % Monocytes % 3 % Neutrophils # (Manual) 8.4 TH/MM3 Metamyelocytes 2 % Differential Comment FINAL DIFF MANUAL Platelet Estimate NORMAL Platelet Morphology Comment NORMAL Red Cell Morphology Comment NORMAL Blood Urea Nitrogen 22 MG/DL Creatinine 0.48 MG/DL Random Glucose 158 MG/DL Total Protein 4.8 GM/DL Albumin 1.8 GM/DL Calcium Level 7.5 MG/DL Phosphorus Level 2.3 MG/DL Magnesium Level 2.3 MG/DL Alkaline Phosphatase 30 U/L Aspartate Amino Transf (AST/SGOT) 12 U/L Alanine Aminotransferase (ALT/SGPT) 19 U/L Total Bilirubin 0.1 MG/DL Potassium Level 3.4 MEQ/L Chloride Level 122 MEQ/L Carbon Dioxide Level 23.6 MEQ/L Anion Gap 7 MEQ/L Estimat Glomerular Filtration Rate 129 ML/MIN Test 01/30/18 00:00 01/30/18 05:55 01/30/18 06:25 01/30/18 12:10 Sodium Level 147 MEQ/L 146 MEQ/L 142 MEQ/L Serum Osmolality 303 MOSM/KG 300 MOSM/KG 299 MOSM/KG White Blood Count 9.1 TH/MM3 Red Blood Count 2.99 MIL/MM3 Hemoglobin 9.2 GM/DL Hematocrit 26.2 % Mean Corpuscular Volume 87.8 FL Mean Corpuscular Hemoglobin 30.8 PG Mean Corpuscular Hemoglobin Concent 35.1 % Red Cell Distribution Width 14.2 % Platelet Count 203 TH/MM3 Mean Platelet Volume 7.1 FL CBC Comment AUTO DIFF Differential Total Cells Counted 100 Neutrophils % (Manual) 66 % Band Neutrophils % 13 % Lymphocytes % 9 % Monocytes % 2 % Neutrophils # (Manual) 8.1 TH/MM3 Metamyelocytes 8 % Myelocytes 2 % Differential Comment FINAL DIFF MANUAL Platelet Estimate NORMAL Platelet Morphology Comment NORMAL Red Cell Morphology Comment NORMAL Phosphorus Level 3.3 MG/DL Magnesium Level 2.2 MG/DL Phenytoin (Dilantin) Level 11.9 MCG/ML Urine Specific [place] 1.007 Test 01/30/18 18:00 01/31/18 00:30 01/31/18 06:00 01/31/18 08:40 Sodium Level 144 MEQ/L 144 MEQ/L 143 MEQ/L Serum Osmolality 304 MOSM/KG 300 MOSM/KG 302 MOSM/KG White Blood Count 9.5 TH/MM3 Red Blood Count 2.69 MIL/MM3 Hemoglobin 8.2 GM/DL Hematocrit 23.8 % Mean Corpuscular Volume 88.3 FL Mean Corpuscular Hemoglobin 30.6 PG Mean Corpuscular Hemoglobin Concent 34.6 % Red Cell Distribution Width 14.0 % Platelet Count 184 TH/MM3 Mean Platelet Volume 7.7 FL Blood Urea Nitrogen 15 MG/DL Creatinine 0.48 MG/DL Random Glucose 155 MG/DL Calcium Level 7.5 MG/DL Potassium Level 3.2 MEQ/L Chloride Level 108 MEQ/L Carbon Dioxide Level 23.1 MEQ/L Anion Gap 12 MEQ/L Estimat Glomerular Filtration Rate 129 ML/MIN (Js Nj) Medical Decision Making Impression and Plan Impression: 1. Large frontal neoplasm noted on CT scan and previous MRI imaging. 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 Postoperative Diagnosis: (1) Meningioma, multiple (2) Parasagittal meningioma 1. Recurrent left parafalcine meningioma 2. 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 Withdrawal of BLE to noxious stimulation. No eye opening but pupils sluggish. Propofol at max. On levetiracetam, fosphenytoin & phenobarbital for seizures. T max 99.4 yesterday morning. SBP intermittently outside desired range. Reviewed labs for today. Drop in haemoglobin level. Sodium 143. Hypokalemia. CT brain demonstrates stable left frontal & posterior temporal region ventricular haemorrhage & edema w/slight mass effect [id number] shift of third ventricle measuring 3 mm. No new haemorrhage identified. EEG w/right frontocentral periodic lateralized epileptiform discharge -like activity c/w seizure focus & focal abnormality in the right frontocentral head region. DIANN drain with 45 mL for the past 24 hrs as of shift change this morning. POD #6 () s/p: Bifrontal craniotomy for resection 1. Left parafalcine meningioma 2. Bilateral cribriform plate -Planum sphenoidale meningioma 3. Use of frameless intraoperative stereotactic navigation for planning of the incision site and bone flap and resection of the parafalcine and frontal skull base neoplasm. Plan: Primary management per Hospitalist. Critical care management per Tool Room Attendant. Seizure management per Neurology. Neuro checks. Stat CT brain for any decline in neuro status. Maintain SBP between 110 and 140 mm Hg. Monitor DIANN drain output. Will d/c DIANN drain when able to do so due to continuous EEG. Appreciate Tool Room Attendant's & Neurology's assistance in managing this critically ill patient. (Js Nj) Attending Statement The exam, history, and the medical decision-making described in the above note were completed with the assistance of the mid-level provider. I reviewed and agree with the findings presented. I attest that I had a [id number] encounter with the patient on the same day, and personally performed and documented my assessment and findings in the medical record. Patient remains intubated, sedated on propofol. Continuous EEG monitoring placed. Pupils are 3 mm slowly reactive. Mild conjugate oculocephalic responses. No eye opening to voice or sternal rub. Mild flexion upper extremities to deep pain Continuing Dilantin, Keppra, phenobarbital for seizure activity. Neurology following (Tolu Herring MD) Js Nj Jan 31, 2018 09:18 Tolu Herring MD Jan 31, 2018 21:43
[2018-01-31] MEDS: SENNOSIDES SYRUP 8.8 MG/5 ML CUP PO SCH ×2 (09:19→20:14)
[2018-01-31] MEDS: NYSTATIN 100,000 U/GM PWD 15 GM BTL TOPICAL SCH ×2 (09:20→20:15)
[2018-01-31] MEDS: DOCUSATE SODIUM 100 MG/10 ML UDC PO SCH ×2 (09:32→20:14)
[2018-01-31 09:49] LABS: PHENYTOIN (DILANTIN) 12.5 MCG/ML (10.0-20.0)
[2018-01-31] MEDS: POTASSIUM CHLOR 40 MEQ PREMIX 100 ML IV PRN (10:43)
[2018-01-31] MEDS ORDERED: MIDAZOLAM HCL 5 MG/ML VIAL (1 ML) ONE (14:09)
--- NOTE | 2018-01-31 14:10 | HHI.CCPN ---
Subjective Remarks/Hospital Course 67-year-old female patient with history of a previous brain mass for which she underwent evaluation. She was after court order because she became aggressive and hostile at home. The patient lives with her mother, who has Alzheimer disease. The CT of the head performed in the emergency department showed an Extra-axial left frontal mass again seen with left to right midline shift, likely related to meningioma. She has undergone another tumor resection by Dr. Herring today. The patient remains postprocedure intubated, also the repeated postoperative CAT scan of the head show significant amount of brain edema. 01/26: FiO2 remains at 75%. Small left pleural effusion/atelectasis noted. Remains on 3% at [address] brain revealed stable cerebral edema with stable hemorrhage. Sedated on propofol drip at 40 mcg/kg/min 01/27: FiO2 down to 50%. Withdraws to pain bilateral upper and lower extremities. Currently on propofol drip at 45 mcg/kg/min. Tolerating tube feeds. 01/28: FiO2 down to 40%. Opens eyes to voice but currently not following commands. No tremor activity noted. Repeat EEG performed but results are pending. Currently levetiracetam and 1000 mg IV 3 times daily with phenytoin level at therapeutic levels Subjective 01/29: T-max 99. Currently afebrile. Noted right hemispheric slowing/sharps in the right central/frontal region. Currently levetiracetam thousand milligrams twice daily and fosphenytoin 100 mg 3 times daily. Tolerating CPAP. Neurologically opens eyes to voice withdraws bilateral lower extremities. Intermittent tremors upper extremity 01/30: no neuro exam changes noted. nsgy noticed some facial twitching and repeat EEG ordered, but no change in baseline neuro exam. 01/31: ongoing seizure focus. phenobarb added by neurology. neurologic exam stable , but remains poor. Objective Vital Signs Date Time Temp Pulse Resp B/P (MAP) Pulse Ox O2 Delivery O2 Flow Rate FiO2 01/31/18 11:45 97 40 01/31/18 06:00 70 01/31/18 04:00 99.1 18 127/66 (86) 01/30/18 19:00 Mechanical Ventilator Intake and Output 01/31/18 01/31/18 02/01/18 08:00 16:00 00:00 Intake Total 599 ml 100 ml Output Total 420 ml Balance 179 ml 100 ml Result Diagram: 01/31/18 0600 01/31/18 0600 Imaging Last Impressions Chest X-Ray 01/28/18 06 Signed Impressions: Service Date/Time: Sunday, January 28, 2018 03:50 - CONCLUSION: No significant interval change Tommie Solis MD Head CT 01/26/18 1220 Signed Impressions: Service Date/Time: Friday, January 26, 2018 13:48 - CONCLUSION: 1. Slight improvement in acute hemorrhage and edema in the frontal lobe since January 26 exam from earlier today with slightly less mass effect and midline shift. No new hemorrhage. Andrey Pearson MD Head CTA 01/25/18 0000 Signed Impressions: Service Date/Time: Thursday, January 25, 2018 17:59 - CONCLUSION: No acute vascular findings Tommie Solis MD Brain MRI 01/24/18 0000 Signed Impressions: Service Date/Time: December 10:18 - CONCLUSION: Large enhancing mass in the upper left frontal lobe as well as dural enhancement along the base of the skull anterior midline. Vern Boo MD Procedures Left subclavian CVL 01/[address] Baldwin Left radial A-line placed in OR 01/25 Disinhibition Score: 14.00 Aggression Score: 14.00 Lability Score: 14.00 Agitated Behavior Total Score: 14 Objective Remarks GENERAL: 67-year-old female currently orotracheally intubated SKIN: Warm and dry. No rash HEAD: Post bifrontal craniectomy with karolina intact EYES: No scleral icterus. No injection or drainage. NECK: Supple, trachea midline. No JVD. CARDIOVASCULAR: Regular rate and rhythm. sinus RESPIRATORY: equal chest rise. No accessory muscle use. GASTROINTESTINAL: Abdomen soft, non-tender, nondistended. MUSCULOSKELETAL: No significant peripheral edema. Left central line/subclavian is clean dry and intact. Ecchymosis to dorsal aspect left greater than right foot. NEURO EXAM: The patient is sedated and intubated. Heavily sedated Date of Insertion: Jan 25, 2018 Line: Central Venous Catheter Side: Left Location: Subclavian A/P Assessment and Plan Neuro/Psych: Postop day #6 bifrontal craniotomy for resection of left parafalcine meningioma , bilateral cribriform plate -Planum sphenoidale meningioma with use of frameless intraoperative stereotactic navigation for planning of the incision site and bone flap and resection of the parafalcine and frontal skull base neoplasm CT brain postoperative 01/25 revealed subcutaneous air/subarachnoid hemorrhage left temporal and right parietal region. 1.8 parenchymal hemorrhage left temporal region. Neuro basilar cisterns. Central sulci are effaced. CT brain 01/26 - Stable he is ventricle hemorrhage and edema in the left frontal and left posterior temporal regions. Slight mass effect left to right shift of the third ventricle measuring 3 mm. No new hemorrhage is identified. There may be slightly less and edema in the frontal lobes on the previous study but the change is minimal. Evaluated by psychiatry Dr. oCsta and deemed competent prop/fent for Goal of RASS of -2 Daily sedation vacation when okay with Dr. Herring Serial sodiums every 6 hours with serum serum osmolalities every 6 hours Remains on dexamethasone at 4 mg IV every 6 hours for brain mass. Management per neurosurgery Levetiracetam 1000 mg IV 3 times daily Currently fosphenytoin 100 mg IV every 8 hours. Level 17.2 this a.m. Recheck tomorrow 01/30 EEG 01/27 revealed sharps right frontal region. EEG 01/29 revealed right hemispheric sharps in the right frontal central region. EEG 01/30: PLEDS. Followed by neurology/Dr. Lockwood. Antiepileptics as above. CV: Hypertension Written for nicardipine drip and labetalol/clonidine as needed to maintain systolic blood pressure less than 130 Previously on nifedipine 30 mg sustained release daily. Resp: Postoperative respiratory failure PRVC 18/500///40 Ventilator bundle Albuterol/ipratropium aerosols every 6 hours with albuterol aerosols every 2 hours as needed dyspnea Spontaneous breathing trials when clinically indicated Portable chest x-ray in a.m. 01/30 GI: Hypoalbuminemia Tube feeding with Glucerna 1.5 goal 50 cc an hour. Nutrition recommended vital high-protein at 45 cc now. We will continue with hyperglycemia Lansoprazole 30 mg daily for GI prophylaxis Docusate sodium 100 mg twice daily/senna liquid 8.6 mg twice daily for bowel regimen : d/c jorge. Endo: Hyperglycemia of critical illness/steroid induced Continue on low-dose insulin detemir 15 units twice daily. 4 unit sliding scale insulin past 24 hours Sliding scale insulin/moderate regimen with Accu-Cheks every 4 hours to maintain euglycemia Novulog Renal: Creatinine currently within normal limits Monitor urine output Accurate I's and O's Heme: Normocytic anemia Monitor CBC daily. Follow trends ID: Monitor for signs and symptoms of infection FEN: Hypophosphatemia Hypokalemia Hypernatremia Serial sodiums every 6 hours. 15 mmol K-Phos IV 1 now. Recheck in a.m. MSK: Physical therapy evaluate and treat Access -Left subclavian CVL placed 01/25. obtain 2 piv and d/c cvl. Prophylaxis -GI -lansoprazole -DVT -SCD/holding pharmacological prophylaxis in light of hemorrhage. Initiate when okay with neurosurgery Marky Bravo MD Jan 31, 2018 14:10
[2018-01-31] MEDS ORDERED: MIDAZOLAM HCL 5 MG/ML VIAL (1 ML) IV ONE (14:30)
[2018-01-31] MEDS ORDERED: MIDAZOLAM 100 MG/NS 100 ML DRIP Premix IV SCH (14:30)
--- NOTE | 2018-01-31 14:41 | HHI.HCPN ---
Reason for visit a. To assist with evaluation and management of symptoms including: Encephalopathy, seizures b. To assist medical decision maker(s) with: better understanding of current medical conditions; weighing benefits/burdens of medical treatment options; making medical treatment decisions. (Kassi Tang) Subjective/Interval History Patient seen to follow-up on symptom management and goals of care. She is postop day 6 from a bifrontal craniotomy for resection of a left parafalcine meningioma, bilateral cribriform plate - planum sphenoidale meningioma. She has been experiencing some seizures for which she is seeing neurology and had been placed on Cerebyx and Keppra. During sedation vacation, patient developed recurrent seizures clinically, manifesting mouth movement. Seizures were noted on physical exam and continuous EEG was done showing right frontocentral periodic lateralized epileptiform discharge like activity consistent with a seizure focus and a focal abnormality in the right frontocentral head region. Neurology is following and increased Cerebyx maintenance to 100 mcg IV every 6 hours with an additional bolus of 300 mg to increase the baseline phenytoin level with continued Keppra. Phenobarbital was initiated for further seizure suppression and patient was placed back on 50 mcg/ kg/min of propofol. Clinical data: * Laboratory: WBC 9.5, hemoglobin 8.2, hematocrit 23.8, platelets 184, phenytoin 12.5, phenobarbital 5.9, sodium 143, potassium 3.2, BUN 15, creatinine 0.48, random glucose 155, calcium 7.5. She remains intubated, sedated on propofol 50 mcg/kg/min, unresponsive on exam. There is some limited withdrawal to noxious stimuli in the lower extremities bilaterally, no response to upper extremities. Pupils are 2 mm, round and sluggishly reactive. No nystagmus is seen. . Family/friend interactions Spoke with patient's sister who questioned CODE STATUS. I did explain her options to her. At this time she wishes to give her sister more opportunity to recover and allow resuscitation if necessary. If seizures continue and outcome remains poor she will likely transition to a DO NOT RESUSCITATE without escalation of care. . (Kassi Tang) Advance Directives Living Will: Never completed Health Care Surrogate: Never completed Durable Power of Landscape Contractor: Never completed (Kassi Tang) Advance Directive Specifics Health Care Surrogate(s): Never completed. Documented care wishes: Never completed. . (Kassi Tang) Objective Vital Signs Date Time Temp Pulse Resp B/P (MAP) Pulse Ox O2 Delivery O2 Flow Rate FiO2 01/31/18 11:45 97 40 01/31/18 07:33 97 40 01/31/18 06:00 70 01/31/18 04:04 96 40 01/31/18 04:00 69 01/31/18 04:00 99.1 69 18 127/66 (86) 95 01/31/18 04:00 40 01/31/18 02:00 70 01/31/18 00:20 95 40 01/31/18 00:00 40 01/31/18 00:00 98.7 71 18 121/60 (80) 92 01/31/18 00:00 71 01/30/18 22:00 69 01/30/18 21:03 98 40 01/30/18 20:00 98.2 74 20 107/53 (71) 97 01/30/18 20:00 74 01/30/18 20:00 40 01/30/18 19:00 97 Mechanical Ventilator 40 01/30/18 18:00 78 01/30/18 16:01 97 40 01/30/18 16:00 40 01/30/18 16:00 81 01/30/18 16:00 99.0 81 24 130/64 (86) 97 Intake & Output 01/31/18 01/31/18 07:00 19:00 Intake Total 699 ml 200 ml Output Total 520.0 ml Balance 179.0 ml 200 ml IV Total 500 ml 200 ml Tube Feeding 139 ml Tube Irrigant 60 ml Output Urine Total 400 ml Tube Feeding Residual Discard 100.0 ml Drainage Total 20 ml # Bowel Movements 0 Physical Exam CONSTITUTIONAL/GENERAL: This is an adequately nourished patient, intubated, sedated in no apparent distress. TUBES/LINES/DRAINS: Right PIV 2, left PIV 1, Hills catheter, ETT, OGT, left subclavian central line, left cranial grenade drain, right femoral arterial line. NECK: Orally intubated. CARDIOVASCULAR: Regular rate and rhythm without murmurs, gallops, or rubs. No JVD. Peripheral pulses symmetric. RESPIRATORY/CHEST: Symmetric, unlabored respirations. Clear to auscultation. Breath sounds equal bilaterally. No wheezes, rales, or rhonchi. GASTROINTESTINAL: Abdomen soft, nondistended. No hepato-splenomegaly, or palpable masses. Bowel sounds present. GENITOURINARY: Without palpable bladder distension. Hills catheter intact MUSCULOSKELETAL: 1+ left lower extremity edema with resolving bruising on the left foot. Right lower extremity with trace edema, tiny bruise seen on fourth right toe NEUROLOGICAL: Intubated, sedated. Pupils 2 mm, equal, sluggishly reactive, no nystagmus noted. Withdraws to pain slightly in lower extremities. PSYCHIATRIC: Sedated. . (Kassi Tang) Diagnostic Tests Laboratory Laboratory Tests Test 01/28/18 16:10 01/28/18 23:30 01/29/18 05:35 01/29/18 18:30 Sodium Level 150 MEQ/L (136-145) 151 MEQ/L (136-145) 153 MEQ/L (136-145) 150 MEQ/L (136-145) Serum Osmolality 319 MOSM/KG (275-295) 318 MOSM/KG (275-295) 317 MOSM/KG (275-295) 306 MOSM/KG (275-295) Phenytoin (Dilantin) Level 11.4 MCG/ML (10.0-20.0) White Blood Count 8.8 TH/MM3 (4.0-11.0) Red Blood Count 2.69 MIL/MM3 (4.00-5.30) Hemoglobin 8.2 GM/DL (11.6-15.3) Hematocrit 23.9 % (35.0-46.0) Mean Corpuscular Volume 89.0 FL (80.0-100.0) Mean Corpuscular Hemoglobin 30.4 PG (27.0-34.0) Mean Corpuscular Hemoglobin Concent 34.2 % (32.0-36.0) Red Cell Distribution Width 14.1 % (11.6-17.2) Platelet Count 201 TH/MM3 (150-450) Mean Platelet Volume 7.4 FL (7.0-11.0) Neutrophils (%) (Auto) 90.0 % (16.0-70.0) Lymphocytes (%) (Auto) 6.7 % (9.0-44.0) Monocytes (%) (Auto) 3.2 % (0.0-8.0) Eosinophils (%) (Auto) 0.0 % (0.0-4.0) Basophils (%) (Auto) 0.1 % (0.0-2.0) Neutrophils # (Auto) 7.9 TH/MM3 (1.8-7.7) Lymphocytes # (Auto) 0.6 TH/MM3 (1.0-4.8) Monocytes # (Auto) 0.3 TH/MM3 (0-0.9) Eosinophils # (Auto) 0.0 TH/MM3 (0-0.4) Basophils # (Auto) 0.0 TH/MM3 (0-0.2) CBC Comment AUTO DIFF Differential Total Cells Counted 100 Neutrophils % (Manual) 83 % (16-70) Band Neutrophils % 11 % (0-6) Lymphocytes % 1 % (9-44) Monocytes % 3 % (0-8) Neutrophils # (Manual) 8.4 TH/MM3 (1.8-7.7) Metamyelocytes 2 % (0-1) Differential Comment FINAL DIFF MANUAL Platelet Estimate NORMAL (NORMAL) Platelet Morphology Comment NORMAL (NORMAL) Red Cell Morphology Comment NORMAL (NORMAL) Blood Urea Nitrogen 22 MG/DL (7-18) Creatinine 0.48 MG/DL (0.50-1.00) Random Glucose 158 MG/DL (74-106) Total Protein 4.8 GM/DL (6.4-8.2) Albumin 1.8 GM/DL (3.4-5.0) Calcium Level 7.5 MG/DL (8.5-10.1) Phosphorus Level 2.3 MG/DL (2.5-4.9) Magnesium Level 2.3 MG/DL (1.5-2.5) Alkaline Phosphatase 30 U/L (45-117) Aspartate Amino Transf (AST/SGOT) 12 U/L (15-37) Alanine Aminotransferase (ALT/SGPT) 19 U/L (10-53) Total Bilirubin 0.1 MG/DL (0.2-1.0) Potassium Level 3.4 MEQ/L (3.5-5.1) Chloride Level 122 MEQ/L (98-107) Carbon Dioxide Level 23.6 MEQ/L (21.0-32.0) Anion Gap 7 MEQ/L (5-15) Estimat Glomerular Filtration Rate 129 ML/MIN (>89) Test 4/4/18 00:00 01/30/18 05:55 01/30/18 06:25 01/30/18 12:10 Sodium Level 147 MEQ/L (136-145) 146 MEQ/L (136-145) 142 MEQ/L (136-145) Serum Osmolality 303 MOSM/KG (275-295) 300 MOSM/KG (275-295) 299 MOSM/KG (275-295) White Blood Count 9.1 TH/MM3 (4.0-11.0) Red Blood Count 2.99 MIL/MM3 (4.00-5.30) Hemoglobin 9.2 GM/DL (11.6-15.3) Hematocrit 26.2 % (35.0-46.0) Mean Corpuscular Volume 87.8 FL (80.0-100.0) Mean Corpuscular Hemoglobin 30.8 PG (27.0-34.0) Mean Corpuscular Hemoglobin Concent 35.1 % (32.0-36.0) Red Cell Distribution Width 14.2 % (11.6-17.2) Platelet Count 203 TH/MM3 (150-450) Mean Platelet Volume 7.1 FL (7.0-11.0) CBC Comment AUTO DIFF Differential Total Cells Counted 100 Neutrophils % (Manual) 66 % (16-70) Band Neutrophils % 13 % (0-6) Lymphocytes % 9 % (9-44) Monocytes % 2 % (0-8) Neutrophils # (Manual) 8.1 TH/MM3 (1.8-7.7) Metamyelocytes 8 % (0-1) Myelocytes 2 % (0-0) Differential Comment FINAL DIFF MANUAL Platelet Estimate NORMAL (NORMAL) Platelet Morphology Comment NORMAL (NORMAL) Red Cell Morphology Comment NORMAL (NORMAL) Phosphorus Level 3.3 MG/DL (2.5-4.9) Magnesium Level 2.2 MG/DL (1.5-2.5) Phenytoin (Dilantin) Level 11.9 MCG/ML (10.0-20.0) Urine Specific [place] 1.007 (1.002-1.035) Test 01/30/18 18:00 01/31/18 00:30 01/31/18 06:00 01/31/18 08:40 Sodium Level 144 MEQ/L (136-145) 144 MEQ/L (136-145) 143 MEQ/L (136-145) Serum Osmolality 304 MOSM/KG (275-295) 300 MOSM/KG (275-295) 302 MOSM/KG (275-295) White Blood Count 9.5 TH/MM3 (4.0-11.0) Red Blood Count 2.69 MIL/MM3 (4.00-5.30) Hemoglobin 8.2 GM/DL (11.6-15.3) Hematocrit 23.8 % (35.0-46.0) Mean Corpuscular Volume 88.3 FL (80.0-100.0) Mean Corpuscular Hemoglobin 30.6 PG (27.0-34.0) Mean Corpuscular Hemoglobin Concent 34.6 % (32.0-36.0) Red Cell Distribution Width 14.0 % (11.6-17.2) Platelet Count 184 TH/MM3 (150-450) Mean Platelet Volume 7.7 FL (7.0-11.0) Blood Urea Nitrogen 15 MG/DL (7-18) Creatinine 0.48 MG/DL (0.50-1.00) Random Glucose 155 MG/DL (74-106) Calcium Level 7.5 MG/DL (8.5-10.1) Potassium Level 3.2 MEQ/L (3.5-5.1) Chloride Level 108 MEQ/L (98-107) Carbon Dioxide Level 23.1 MEQ/L (21.0-32.0) Anion Gap 12 MEQ/L (5-15) Estimat Glomerular Filtration Rate 129 ML/MIN (>89) Phenytoin (Dilantin) Level 12.5 MCG/ML (10.0-20.0) Phenobarbital Level 5.9 MCG/ML (15.0-40.0) (Kassi Tang) Result Diagram: 01/31/18 0600 01/31/18 06 Imaging Last Impressions Chest X-Ray 01/30/18 0600 Signed Impressions: Service Date/Time: Tuesday, January 30, 2018 03:55 - CONCLUSION: Slight improvement in aeration Tommie Solis MD Foot X-Ray 01/29/18 0000 Signed Impressions: Service Date/Time: Monday, January 29, 2018 20:36 - CONCLUSION: 1. No acute findings. Andrey Pearson MD Head CT 01/26/18 1220 Signed Impressions: Service Date/Time: Friday, January 26, 2018 13:48 - CONCLUSION: 1. Slight improvement in acute hemorrhage and edema in the frontal lobe since January 26 exam from earlier today with slightly less mass effect and midline shift. No new hemorrhage. Andrey Pearson MD Head CTA 01/25/18 0000 Signed Impressions: Service Date/Time: Thursday, January 25, 2018 17:59 - CONCLUSION: No acute vascular findings Tommie Solis MD Brain MRI 01/24/18 0000 Signed Impressions: Service Date/Time: December 10:18 - CONCLUSION: Large enhancing mass in the upper left frontal lobe as well as dural enhancement along the base of the skull anterior midline. Vern Boo MD Procedures 01/25/2018: Bifrontal craniotomy for resection of left parafalcine meningioma, bilateral cribriform plate-planum sphenoidale meningioma 01/25/2018: Continued intubation status post surgery. 01/26/2018: Left subclavian central line placement 01/26/2018: Right femoral arterial catheter placement . (Kassi Tang) Assessment and Plan Disease Oriented Problem List: (1) Brain mass (2) Confusion (3) Agitation Symptom Scale: (1) Confusion 0-10 Scale: Unable to quantify (Confusion is intermittent. Oriented to person place purpose and time at this evaluation.) (2) Agitation 0-10 Scale: Unable to quantify (Intermittent. No agitation at this time..) Pertinent Non-Medical Issues Psychosocial:She was born in [place] and moved to [place] in the mid s. She was never and has no children. 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 Spiritual: Spiritual in her own way but not associated with any organized gnosticist. Legal: Pending psychiatry consultation to determine capacity to make decisions. Ethical issues impacting care: Admitted under ex parte court order. . Important Contacts Sister: Karla Keller DCF slitter helper, Chelsey Bourgeois . Prognosis Her prognosis is guarded. It is unknown whether her intermittent confusion is secondary to baseline dementia or brain masses. She has been brought in under court order twice in the last month, once under a [place] act, the second 1 under an ex parte order. She has 2 very large masses in her brain, thought to be meningiomas, and is awaiting evaluation by neurosurgery to determine whether surgery is appropriate and if so when it would be scheduled. With surgery, she is at risk for surgical complications and postoperative deficits, without surgery she is at risk for further complications and decline. . Code Status: Full Code Plan PLAN: Legal decision maker: She is currently not capacitated as she is intubated and sedated. Per [place] statutes, her sister Karla Keller would be her healthcare decision maker. Goals: Aggressive at this time. CODE STATUS: FULL CODE SYMPTOMS: * Encephalopathy: She is status post craniotomy and electroencephalogram is showing right frontal slowing, no seizures. Today patient demonstrated no nystagmus on propofol 50 mcg/kg/min, Cerebyx, Keppra and Dilantin and continuous EEG is in process to evaluate for subclinical seizures. She remains intubated and sedated at this time but when on sedation vacation is withdrawn only lower extremities. Undergoing spontaneous breathing trials. * Seizures: She is currently on Keppra and Cerebyx. Most recent EEG showed seizure activity. This morning's clinical exam revealing no nystagmus, while on sedation, undergoing continuous EEG. Neurology following. Palliative care will continue to follow the patient during hospital course as condition evolves, to assist patient/decision-maker with understanding of their medical conditions, weighing benefits/burdens of treatment options, for clarification of goals of treatment. Additionally will assist with any symptoms of palliative concern. . (Kassi Tang) Attestation To help prompt me to consider important information that might be impacting today's encounter and assessment, information from prior notes written by myself or my colleagues may have been "brought forward" into today's note. My signature on this note, however, is an attestation that I personally performed the exam, history, and/or decision-making noted today, and, unless otherwise indicated, the interactions with patient, family, and staff as well as the review of records all occurred today. I also attest that the listed assessment and stated plan reflect my best clinical judgment today based on the combination of historical information, prior notes, and today's exam/ interactions. When time spent is documented, it refers only to time spent today by the signer, or if indicated, combined time spent today by collaborating physician/nurse practitioner. . (Kassi Tang) Collaborating MD Comments Chart reviewed. Case discussed with palliative care RODEO PERFORMER. Above RODEO PERFORMER note reviewed and I concur. . (Jeremie Small MD) Kassi Tang Jan 31, 2018 14:41 Jeremie Small MD Feb 04, 2018 05:48
--- NOTE | 2018-01-31 17:41 | RADRPT ---
EXAM DATE/TIME: 01/31/2018 17:09 [facility] COMPARISON: CHEST SINGLE AP, January 30, 2018, 3:55. INDICATIONS : Tube feeding residual. MEDICAL HISTORY : Dementia, Brain mass. SURGICAL HISTORY : Craniotomy. ENCOUNTER: Subsequent ACUITY: 1 day PAIN SCORE: Non-responsive. LOCATION: abdomen FINDINGS: The examination demonstrates a nasogastric tube coiled within the stomach. The bowel gas pattern is u nremarkable. There is a left basilar effusion and atelectasis. The visualized bony structures appear grossly intact. CONCLUSION: 1. There is a nasogastric tube coiled within the stomach. 2. Small left basilar effusion. 3. Overall size of the effusion at the left base has decreased when compared to previous dated 8. Osmin Lemus MD on January 31, 2018 at 17:37 Board Certified Radiologist. This report was verified electronically.
--- NOTE | 2018-01-31 18:26 | HHI.PR ---
Review/Management Diagnosis s/p meningioma resection with left frontal sz---sz improved since adding versed Plan increase phenobarbital continue current level of versed and diprivan Diagnosis/Plan: Subjective Subjective Comments No acute events reported EEG earlier today showing continuous epileptiform dc right frontal. Now on versed 6 mg/hr and diprivan Active Medications Current Medications Medications (Trade) Dose Ordered Sig/Yancy Route Start Time Stop Time Status Last Admin (Catapres) 0.1 mg Q6H PRN PO 01/18/18 19:30 01/22/18 13:06 Nicardipine HCl 25 mg/Sodium Chloride 260 ml @ 52 mls/hr TITRATE PRN IV 01/25/18 19:15 01/30/18 11:30 (Brethine Inj) 1 mg UNSCH PRN SQ 01/25/18 19:15 (Peridex 0.12% Liq) 15 ml BID@08,20 MT 01/25/18 20:00 01/31/18 09:01 Propofol 100 ml @ 2.709 mls/ hr TITRATE PRN IV 01/25/18 20:00 01/31/18 12:00 (Prevacid Odt) 30 mg DAILY NG 01/26/18 09:00 01/31/18 08:58 (Trandate Inj) 10 mg Q1HR PRN IV PUSH 01/26/18 07:15 01/30/18 05:23 (Tears Naturale Opth Soln) 1 drop Q8HR EACH EYE 01/26/18 14:00 01/31/18 13:37 (Albuterol Neb) 2.5 mg Q2HR NEB PRN NEB 01/26/18 07:15 01/29/18 20:12 (Tylenol 650 Mg/ 20 ml Liq) 650 mg Q6H PRN PO 01/26/18 07:15 (Colace Liq) 100 mg Q12HR PO 01/26/18 09:00 01/31/18 09:32 (Senna Liq) 8.8 mg BID PO 01/26/18 09:00 01/31/18 09:19 Potassium Chloride 100 ml @ 50 mls/hr Q2H PRN IV 01/26/18 07:45 01/31/18 10:43 Potassium Chloride 100 ml @ 50 mls/hr Q2H PRN IV 01/26/18 07:45 (K-Lyte Cl Eff) 50 meq UNSCH PRN PO 01/26/18 07:45 Potassium Chloride 100 ml @ 25 mls/hr UNSCH PRN IV 01/26/18 07:45 Potassium Chloride 100 ml @ 50 mls/hr Q2H PRN IV 01/26/18 07:45 01/29/18 14:37 Magnesium Sulfate 4 gm/Sodium Chloride 100 ml @ 50 mls/hr UNSCH PRN IV 01/26/18 07:45 (Mag-Ox) 800 mg UNSCH PRN PO 01/26/18 07:45 Magnesium Sulfate 2 gm/Sodium Chloride 100 ml @ 50 mls/hr UNSCH PRN IV 01/26/18 07:45 (K-Phos) 2,000 mg Q4H PRN PO 01/26/18 07:45 Sodium Phosphate 30 mmol/Sodium Chloride 250 ml @ 42 mls/hr UNSCH PRN IV 01/26/18 07:45 (K-Phos) 2,000 mg UNSCH PRN PO/TUBE 01/26/18 07:45 Potassium Phosphate 30 mmol/ Sodium Chloride 260 ml @ 42 mls/hr UNSCH PRN IV 01/26/18 07:45 01/28/18 09:09 (Mycostatin Powder) 1 applic Q12HR TOPICAL 01/26/18 21:00 01/31/18 09:20 (Levemir Inj) 15 units BID SQ 01/27/18 21:00 01/28/18 21:24 Fentanyl Citrate 250 ml @ 5 mls/hr TITRATE PRN IV 01/27/18 12:15 01/29/18 15:34 Levetriacetam 100 ml @ 400 mls/hr Q8HR IV 01/28/18 06:00 01/31/18 13:37 Phenylephrine HCl 40 mg/Sodium Chloride 500 ml @ 30 mls/hr TITRATE PRN IV 01/28/18 09:00 01/28/18 09:10 (D50w (Vial) Inj) 50 ml UNSCH PRN IV PUSH 01/28/18 17:30 01/29/18 20:03 (Glucagon Inj) 1 mg UNSCH PRN OTHER 01/28/18 17:30 (NovoLOG SUPPLEMENTAL SCALE) 1 Q4HR SQ 01/28/18 20:00 4/4/18 18:23 (Duoneb Neb) 1 ampule Q6HR NEB NEB 01/29/18 22:00 01/31/18 16:02 (Decadron) 4 mg Q6HR PO 01/29/18 18:00 01/31/18 12:41 Phenobarbital Sodium 90 mg/ Sodium Chloride 50.6923 ml @ 202.769 mls/hr Q6H IV 01/30/18 14:00 01/31/18 13:37 Fosphenytoin Sodium 100 mgpe/ Sodium Chloride 52 ml @ 104 mls/hr Q6H IV 01/30/18 20:00 01/31/18 13:36 Midazolam HCl 100 ml @ 6 mls/hr CONTINUOUS IV 01/31/18 16:45 Allergies Allergies Coded Allergies No Allergy Information Available (Unverified01/18/18) Exam I&O / VS 01/31/18 01/31/18 02/01/18 15:00 23:00 07:00 Intake Total 200 ml 300 ml Output Total 200.0 ml 100.0 ml Balance 0 ml 200.0 ml IV Total 200 ml 300 ml Tube Feeding Residual Discard 200.0 ml 100.0 ml Vital Signs Date Time Temp Pulse Resp B/P (MAP) Pulse Ox O2 Delivery O2 Flow Rate FiO2 01/31/18 16:04 100 40 01/31/18 16:00 98.9 77 18 128/59 (82) 97 01/31/18 16:00 40 01/31/18 16:00 71 01/31/18 14:00 71 01/31/18 12:00 71 01/31/18 12:00 40 01/31/18 12:00 98.8 76 18 118/56 (76) 97 01/31/18 11:45 97 40 01/31/18 10:00 71 01/31/18 08:00 98.6 71 18 146/66 (92) 98 01/31/18 08:00 98 Mechanical Ventilator 40 01/31/18 08:00 71 01/31/18 08:00 40 01/31/18 07:33 97 40 01/31/18 06:00 70 01/31/18 04:04 96 40 01/31/18 04:00 69 01/31/18 04:00 99.1 69 18 127/66 (86) 95 01/31/18 04:00 40 01/31/18 02:00 70 01/31/18 00:20 95 40 01/31/18 00:00 40 01/31/18 00:00 98.7 71 18 121/60 (80) 92 01/31/18 00:00 71 01/30/18 22:00 69 01/30/18 21:03 98 40 01/30/18 20:00 98.2 74 20 107/53 (71) 97 01/30/18 20:00 74 01/30/18 20:00 40 01/30/18 19:00 97 Mechanical Ventilator 40 Exam Comments nonresponsive CN intact MOTOR--no spontaneous limb movement , no sz. Objective Micro and Labs Laboratory Tests Test 01/31/18 00:30 01/31/18 06:00 01/31/18 08:40 Sodium Level 144 143 Serum Osmolality 300 302 White Blood Count 9.5 Red Blood Count 2.69 Hemoglobin 8.2 Hematocrit 23.8 Mean Corpuscular Volume 88.3 Mean Corpuscular Hemoglobin 30.6 Mean Corpuscular Hemoglobin Concent 34.6 Red Cell Distribution Width 14.0 Platelet Count 184 Mean Platelet Volume 7.7 Blood Urea Nitrogen 15 Creatinine 0.48 Random Glucose 155 Calcium Level 7.5 Potassium Level 3.2 Chloride Level 108 Carbon Dioxide Level 23.1 Anion Gap 12 Estimat Glomerular Filtration Rate 129 Phenytoin (Dilantin) Level 12.5 Phenobarbital Level 5.9 Campbell Lockwood MD PhD Jan 31, 2018 18:26
[2018-02-01] VITALS (19 sets, daily range): BP systolic 117–139; BP diastolic 60–71; PULSE 81–89; RESP 14–18; TEMP 98.5–99.5; O2SAT 96–100
[2018-02-01] MEDS: DEXAMETHASONE SOD PHOS 4 MG/ML VIAL IV PUSH SCH ×5 (00:10→22:37)
[2018-02-01] MEDS: PHENobarbital INJ 90 MG in SODIUM CHLORIDE 0.9% INJ 50 ML IV SCH ×6 (00:11→22:37)
[2018-02-01] MEDS: PROPOFOL 1000 MG/100 ML INJ 100 ML IV PRN ×6 (03:03→22:41)
[2018-02-01] MEDS: RESP: ALBUTEROL 2.5 MG/IPRATROPIUM 0.5 MG NEB (SCH) NEB ×4 (04:07→19:25)
[2018-02-01] MEDS: FOSPHENYTOIN INJ 100 MGPE in SODIUM CHLORIDE 0.9% INJ 50 ML IV SCH ×4 (04:15→20:00)
[2018-02-01] MEDS: INSULIN ASPART SUPPLEMENTAL SCALE SQ SCH ×6 (04:28→20:00)
[2018-02-01 04:53] LABS: HEMATOCRIT 23.7 % (35.0-46.0); HEMOGLOBIN 8.3 GM/DL (11.6-15.3); MEAN CELL VOLUME 87.5 FL (80.0-100.0); MEAN CORPUSCULAR HEMOGLOBIN 30.8 PG (27.0-34.0); MEAN CORPUSCULAR HGB CONC 35.3 % (32.0-36.0); MEAN PLATELET VOLUME 7.2 FL (7.0-11.0); PLATELET COUNT 180 TH/MM3 (150-450); RED CELL DISTRIBUTION WIDTH 14.5 % (11.6-17.2); WHITE BLOOD COUNT 8.8 TH/MM3 (4.0-11.0)
[2018-02-01 05:09] LABS: BICARBONATE 20.3 MEQ/L (21.0-32.0); CALCIUM 7.6 MG/DL (8.5-10.1); CREATININE 0.48 MG/DL (0.50-1.00)
[2018-02-01] MEDS: ARTIFICIAL TEARS OPTH SOLN 15 ML BTL EACH EYE SCH ×3 (05:28→22:40)
[2018-02-01] MEDS: levETIRAcetam INJ 100 ML IV SCH ×3 (05:29→22:35)
[2018-02-01] MEDS: MIDAZOLAM 100 MG/NS 100 ML DRIP Premix IV SCH (06:29)
[2018-02-01] MEDS ORDERED: MINERAL OIL EMULSION 55% PO ONE (07:00)
[2018-02-01] MEDS ORDERED: POTASSIUM CHLOR 40 MEQ PREMIX 100 ML IV ONE (07:00)
[2018-02-01] MEDS ORDERED: METHYLNALTREXONE BROMIDE 12 MG/0.6 ML VIAL SQ ONE (07:00)
[2018-02-01] MEDS ORDERED: MIDAZOLAM HCL 2 MG/2 ML VIAL IV PUSH ONE (07:00)
--- NOTE | 2018-02-01 07:00 | HHI.CCPN ---
Subjective Remarks/Hospital Course 67-year-old female patient with history of a previous brain mass for which she underwent evaluation. She was after court order because she became aggressive and hostile at home. The patient lives with her mother, who has Alzheimer disease. The CT of the head performed in the emergency department showed an Extra-axial left frontal mass again seen with left to right midline shift, likely related to meningioma. She has undergone another tumor resection by Dr. Herring today. The patient remains postprocedure intubated, also the repeated postoperative CAT scan of the head show significant amount of brain edema. 01/26: FiO2 remains at 75%. Small left pleural effusion/atelectasis noted. Remains on 3% at [address] brain revealed stable cerebral edema with stable hemorrhage. Sedated on propofol drip at 40 mcg/kg/min 01/27: FiO2 down to 50%. Withdraws to pain bilateral upper and lower extremities. Currently on propofol drip at 45 mcg/kg/min. Tolerating tube feeds. 01/28: FiO2 down to 40%. Opens eyes to voice but currently not following commands. No tremor activity noted. Repeat EEG performed but results are pending. Currently levetiracetam and 1000 mg IV 3 times daily with phenytoin level at therapeutic levels 01/29: T-max 99. Currently afebrile. Noted right hemispheric slowing/sharps in the right central/frontal region. Currently levetiracetam thousand milligrams twice daily and fosphenytoin 100 mg 3 times daily. Tolerating CPAP. Neurologically opens eyes to voice withdraws bilateral lower extremities. Intermittent tremors upper extremity 01/30: no neuro exam changes noted. nsgy noticed some facial twitching and repeat EEG ordered, but no change in baseline neuro exam. 01/31: ongoing seizure focus. phenobarb added by neurology. neurologic exam stable , but remains poor. Subjective 02/01: Resting comfortably in bed in no acute distress. Afebrile. Continues to have focal sharp activity on continuous EEG in the right frontal/central regions will bolus with midazolam 5 mg IV 1 now. No bowel movements 5 days. KUB yesterday shows no signs of ileus or obstructive type process. On trickle feeds at 10 cc an hour with residuals around 200 cc greenish Objective Vital Signs Date Time Temp Pulse Resp B/P (MAP) Pulse Ox O2 Delivery O2 Flow Rate FiO2 02/01/18 06:00 84 02/01/18 04:08 96 40 02/01/18 04:00 98.6 18 126/60 (82) 01/31/18 19:00 Mechanical Ventilator Intake and Output 02/01/18 02/01/18 02/02/18 08:00 16:00 00:00 Intake Total 94 ml Output Total 1225 ml Balance -1131 ml Result Diagram: 02/01/18 0430 02/01/18 0430 Imaging Last Impressions Chest X-Ray 01/28/18 0600 Signed Impressions: Service Date/Time: Sunday, January 28, 2018 03:50 - CONCLUSION: No significant interval change Tommie Solis MD Head CT 01/26/18 1220 Signed Impressions: Service Date/Time: Friday, January 26, 2018 13:48 - CONCLUSION: 1. Slight improvement in acute hemorrhage and edema in the frontal lobe since January 26 exam from earlier today with slightly less mass effect and midline shift. No new hemorrhage. Andrey Pearson MD Head CTA 01/25/18 0000 Signed Impressions: Service Date/Time: Thursday, January 25, 2018 17:59 - CONCLUSION: No acute vascular findings Tommie Solis MD Brain MRI 01/24/18 0000 Signed Impressions: Service Date/Time: December 10:18 - CONCLUSION: Large enhancing mass in the upper left frontal lobe as well as dural enhancement along the base of the skull anterior midline. Vern Boo MD Procedures Left subclavian CVL 01/[address] Baldwin Left radial A-line placed in OR 01/25 Disinhibition Score: 14.00 Aggression Score: 14.00 Lability Score: 14.00 Agitated Behavior Total Score: 14 Objective Remarks GENERAL: 67-year-old female currently orotracheally intubated SKIN: Warm and dry. No rash HEAD: Post bifrontal craniectomy with karolina intact EYES: No scleral icterus. No injection or drainage. NECK: Supple, trachea midline. No JVD. CARDIOVASCULAR: Regular rate and rhythm. sinus RESPIRATORY: equal chest rise. No accessory muscle use. GASTROINTESTINAL: Abdomen soft, non-tender, nondistended. MUSCULOSKELETAL: No significant peripheral edema. Left central line/subclavian is clean dry and intact. Ecchymosis to dorsal aspect left greater than right foot. NEURO EXAM: The patient is sedated and intubated. Heavily sedated Urinary Catheter: Yes Assessment to: Continue Hills insert reason: Prolonged Immobilization Vascular Central Line Catheter: Yes Assessment to: Continue Date of Insertion: Jan 25, 2018 Line: Central Venous Catheter Side: Left Location: Subclavian A/P Assessment and Plan Neuro/Psych: Postop day #7 bifrontal craniotomy for resection of left parafalcine meningioma , bilateral cribriform plate -Planum sphenoidale meningioma with use of frameless intraoperative stereotactic navigation for planning of the incision site and bone flap and resection of the parafalcine and frontal skull base neoplasm Status epilepticus CT brain postoperative 01/25 revealed subcutaneous air/subarachnoid hemorrhage left temporal and right parietal region. 1.8 parenchymal hemorrhage left temporal region. Neuro basilar cisterns. Central sulci are effaced. CT brain 01/26 - Stable he is ventricle hemorrhage and edema in the left frontal and left posterior temporal regions. Slight mass effect left to right shift of the third ventricle measuring 3 mm. No new hemorrhage is identified. There may be slightly less and edema in the frontal lobes on the previous study but the change is minimal. Evaluated by psychiatry Dr. Costa and deemed competent Continuous EEG Currently on propofol drip at 50 mcg/kg/min and midazolam drip at 6 mg an hour [place]appells goal RASS of -2 Daily sedation vacation when okay with Dr. Herring Serial sodiums every 6 hours with serum serum osmolalities every 6 hours Remains on dexamethasone at 4 mg IV every 6 hours for brain mass. Management per neurosurgery Levetiracetam 1000 mg IV 3 times daily Phenobarbital 90 mg IV every 4 hours. Level 4/6 a.m. pending Currently fosphenytoin 100 mg IV every 6 hours. A.m. level 4/6 pending EEG 4/1 revealed sharps right frontal region. EEG 4/3 revealed right hemispheric sharps in the right frontal central region. EEG 4/5: Sharps right frontal/parietal region followed by neurology/Dr. Lockwood. Antiepileptics as above. CV: Hypertension Phenylephrine drip to maintain systolic blood pressure greater than 110 Written for nicardipine drip and labetalol/clonidine as needed to maintain systolic blood pressure less than 130 Previously on nifedipine 30 mg sustained release daily. Resp: Postoperative respiratory failure PRVC 18/500/1/5/40 Ventilator bundle Albuterol/ipratropium aerosols every 6 hours with albuterol aerosols every 2 hours as needed dyspnea Spontaneous breathing trials when clinically indicated Portable chest x-ray in a.m. 02/02 ABG/6 pending GI: Constipation Hypoalbuminemia Tube feeding with Glucerna 1.5 goal 10 cc an hour. Nutrition recommended vital high-protein at 45 cc now. We will continue with hyperglycemia Lansoprazole 30 mg daily for GI prophylaxis Docusate sodium 100 mg twice daily/senna liquid 8.8 mg twice daily for bowel regimen Add polyethylene glycol 17 g twice daily and lactulose 30 cc 4 times daily. Mineral oil 30 cc 1. Methylnaltrexone 12 mg subcu 1 now. Glycerin suppository 1 now. Recheck KUB in a.m. 02/02 Check LFTs, amylase and lipase today. Erythromycin 200 mg every 8 hours. Holding metoclopramide in light of seizure activity : Maintain [place] Endo: Hyperglycemia of critical illness/steroid induced Holding low-dose insulin detemir 15 units twice daily with high residuals. 2unit sliding scale insulin past 24 hours Sliding scale insulin/moderate regimen with Accu-Cheks every 4 hours to maintain euglycemia Novulog Renal: Creatinine currently within normal limits Monitor urine output Accurate I's and O's Heme: Normocytic anemia Monitor CBC daily. Follow trends ID: Monitor for signs and symptoms of infection FEN: Potassium chloride 40 mEq IV 1 now. Recheck in a.m. MSK: Physical therapy evaluate and treat Access -Left subclavian CVL placed 01/25 Prophylaxis -GI -lansoprazole -DVT -SCD/holding pharmacological prophylaxis in light of hemorrhage. Initiate when okay with neurosurgery Critical Care: The total critical care time was 35 minutes. Time to perform other separately billable procedures was not included in the critical care time. Jose Millan MD Feb 01, 2018 07:00
--- NOTE | 2018-02-01 09:17 | HHI.NSPN ---
(Js Nj) History Chief Complaint: Unable to obtain due to patient's clinical condition. (ClemJs) Interval History 01/18: This is a 67-year-old female patient with history of a previous brain mass for which she underwent evaluation. She was brought today to the emergency room after court order because she became aggressive and hostile at home, the patient lives with her mother, who has Alzheimer disease. She has been fighting with her sister and now she is being brought for medical evaluation and psychiatric evaluation. The patient reports that she was previously seen because of a brain tumor and she still has not decided what to do with it. 01/19: Patient history of brain tumor. 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 01/23: The patient is in the bathroom when seen. She is assisted up from the commode and uses a walker to ambulate back to her bed where she sits on the edge of it. She denies any headache or dizziness. She does state that her vision is off but she is not able to describe it any further. She has pain to the right elbow from a fall, otherwise she has no pain to the extremities. She denies any numbness or tingling to the extremities. She does have some difficulty finding the correct word she wants to use. No sensorimotor deficits are noted. 01/24: When seen this afternoon the patient is awake and alert talking with the Ceo [employer]. She does endorse a slight headache this morning but denies any dizziness, visual problems or nausea. She does have some right elbow and left foot pain. She also says that she hurt both knees. Otherwise she has no pain into the extremities and denies any numbness or tingling to them. There is no change in her neuro exam from yesterday. 01/25: The patient went to the operating room for a bifrontal craniotomy for resection of a left parafalcine meningioma and a bilateral cribriform plate- planum sphenoidale meningioma. Post-operatively she was transferred to [facility] for further care and monitoring. 01/26: This morning the patient remains intubated and mechanically ventilated. She is sedated with propofol. A nicardipine drip is infusing for blood pressure control. She did withdraw the right hand and both feet to noxious stimulation upon examination. 01/27: The Ict Teacher reported that the patient was having a subclinical seizure seen on the EEG this morning. When the patient was seen the senior program planner had just completed the EEG and said the patient was having seizures to the right frontal. After being evaluated the patient was noted to have twitching of the first and second digits of the right hand briefly. She remains obtunded and is sedated with propofol. She is also still intubated and mechanically ventilated. She did move both feet to noxious stimulation. 01/28: No seizure activity noted when seen this morning. She continues to be obtunded but maximally sedated with propofol. She is still intubated and mechanically ventilated. She moved only the lower extremities slightly to local noxious stimulation and had partial left eye opening with central noxious stimulation. She was evaluated by Neurology yesterday who adjusted her antiepileptic medication. Another EEG is to be done this morning. 01/29: Repeat EEG done yesterday with right hemisphere slowing. When seen she is lethargic. She is still intubated and mechanically ventilated. The propofol is infusing for sedation. With sedation held she did partially open her eyes and responded to noxious stimulation to the lower extremities only. There is no significant change in her exam. 01/30: The patient's sedation and fentanyl have been held for a while prior to her being seen. She remains obtunded. She continues to be intubated and mechanically ventilated. She had no eye opening to stimulation. She did have some bilateral foot flexion with extension of the right knee to noxious stimulation. Her pupils did appear sluggish. Bilateral nystagmus is noted. 01/31: When seen this morning the patient is obtunded and having a continuous EEG. Nursing did report that the patient was started on phenobarbital yesterday and her fosphenytoin was adjusted. She is also on levetiracetam as well for the seizures. Her propofol is infusing at the maximum dose. She had slight withdrawal of the lower extremities to noxious stimulation upon examination which is the same as what Nursing said the patient did for her. No nystagmus noted. 04/06: This morning the patient is still obtunded. She does have propofol and midazolam infusing for sedation. She continues to be intubated and mechanically ventilated. With her sedation held for several minutes she has slight withdrawal /flexion of the lower extremities. No response with the upper extremities. EEG not attached to patient but Nursing does say she is to be reattached again for continuous EEG monitoring. (Js Nj) System Review Comments Unable to obtain due to patient's clinical condition. (Js Nj) Exam Results 01/30/18 01/30/18 01/31/18 01/31/18 02/01/18 02/01/18 06: 18:00 06:00 18:00 06:00 18:00 Intake Total 965 ml 306 ml 599 ml 830 ml 94 ml Output Total 2170 ml 4325 ml 520.0 ml 1970.0 ml 1255.0 ml Balance -1205 ml -4019 ml 79.0 ml -1140.0 ml -1161.0 ml IV Total 800 ml 206 ml 400 ml 600 ml Tube Feeding 105 ml 100 ml 139 ml 200 ml 34 ml Tube Irrigant 60 ml 60 ml 30 ml 60 ml Output Urine Total 2150 ml 4300 ml 400 ml 1650 ml 1200 ml Tube Feeding Residual Discard 100.0 ml 300.0 ml 30.0 ml Drainage Total 20 ml 25 ml 20 ml 20 ml 25 ml # Bowel Movements 0 0 0 Vital Signs Date Time Temp Pulse Resp B/P (MAP) Pulse Ox O2 Delivery O2 Flow Rate FiO2 02/01/18 07:36 97 40 02/01/18 06:00 84 02/01/18 04:08 96 40 02/01/18 04:00 85 02/01/18 04:00 40 02/01/18 04:00 98.6 85 18 126/60 (82) 96 02/01/18 02:00 86 02/01/18 01:24 98 40 02/01/18 00:00 40 02/01/18 00:00 82 02/01/18 00:00 98.8 87 18 131/65 (87) 99 01/31/18 22:20 97 40 01/31/18 22:00 82 01/31/18 20:00 82 01/31/18 20:00 98.9 82 18 102/67 (79) 98 Automatic Cuff 01/31/18 20:00 40 01/31/18 19:00 98 Mechanical Ventilator 40 01/31/18 18:00 80 01/31/18 16:04 100 40 01/31/18 16:00 98.9 77 18 128/59 (82) 97 01/31/18 16:00 40 01/31/18 16:00 71 01/31/18 14:00 71 01/31/18 12:00 71 01/31/18 12:00 40 01/31/18 12:00 98.8 76 18 118/56 (76) 97 01/31/18 11:45 97 40 01/31/18 10:00 71 01/31/18 08:00 98.6 71 18 146/66 (92) 98 01/31/18 08:00 98 Mechanical Ventilator 40 01/31/18 08:00 71 01/31/18 08:00 40 01/31/18 07:33 97 40 01/31/18 06:00 70 01/31/18 04:04 96 40 01/31/18 04:00 69 01/31/18 04:00 99.1 69 18 127/66 (86) 95 01/31/18 04:00 40 01/31/18 02:00 70 01/31/18 00:20 95 40 01/31/18 00:00 40 01/31/18 00:00 98.7 71 18 121/60 (80) 92 01/31/18 00:00 71 01/30/18 22:00 69 01/30/18 21:03 98 40 01/30/18 20:00 98.2 74 20 107/53 (71) 97 01/30/18 20:00 74 01/30/18 20:00 40 01/30/18 19:00 97 Mechanical Ventilator 40 01/30/18 18:00 78 01/30/18 16:01 97 40 01/30/18 16:00 40 01/30/18 16:00 81 01/30/18 16:00 99.0 81 24 130/64 (86) 97 01/30/18 14:00 86 01/30/18 12:00 96 01/30/18 12:00 98.0 96 27 117/55 (75) 96 01/30/18 12:00 40 01/30/18 11:37 94 40 01/30/18 11:30 91 152/75 01/30/18 10:00 86 01/30/18 08:53 83 131/62 01/30/18 08:00 88 01/30/18 08:00 40 01/30/18 08:00 99.4 88 23 131/62 (85) 95 01/30/18 07:46 94 40 01/30/18 07:46 40 01/30/18 07:00 95 Mechanical Ventilator 40 01/30/18 06:02 88 132/61 01/30/18 06:00 89 01/30/18 04:27 96 40 01/30/18 04:00 99.7 78 16 186/81 (116) 99 01/30/18 04:00 40 01/30/18 04:00 78 01/30/18 03:39 72 157/77 01/30/18 02:00 70 01/30/18 00:36 99 40 01/30/18 00:00 40 01/30/18 00:00 98.9 75 14 154/68 (96) 99 01/30/18 00:00 75 01/29/18 22:00 72 01/29/18 20:16 97 40 01/29/18 20:00 98.8 95 17 139/67 (91) 97 01/29/18 20:00 95 01/29/18 20:00 40 01/29/18 19:00 99 Mechanical Ventilator 40 01/29/18 18:00 71 01/29/18 16:00 98.8 72 16 140/78 (98) 99 01/29/18 16:00 40 01/29/18 16:00 72 01/29/18 15:55 99 40 01/29/18 14:00 70 01/29/18 12:44 63 162/81 01/29/18 12:00 30 01/29/18 12:00 69 01/29/18 12:00 99.0 72 14 158/78 (104) 95 01/29/18 11:45 30 01/29/18 11:45 100 30 01/29/18 10:00 64 (Js Nj) Physical Examination GENERAL: Obtunded, intubated & mechanically ventilated. She has propofol infusing at 50 mcg/kg/min & midazolam at 6 mg/hr. No apparent distress. Sedation held for several minutes before assessment. HEENT: Normocephalic. Bilateral craniotomy surgical incision well-approximated w /karolina & DIANN insertion site w/o any evident drainage, erythema or streaking, DIANN drain to bulb suction w/clearing serous-appearing drainage. PERRLA 3 mm and sluggish, no nystagmus. Orally intubated, OGT. MUSCULOSKELETAL: Moved BLE to noxious stimulation. NEUROLOGICAL: Obtunded with sedation held for several minutes prior to assessment. Nonverbal, orally intubated. No eye opening to any stimulation. PERRLA 3 mm and sluggish. No nystagmus noted. Did not follow any commands. Slight withdrawal/flexion response of BLE to local noxious stimulation but not central. No response to BUE w/any stimulation. (Js Nj) Lab, Micro, Other Results Recent Impressions Abdomen X-Ray 01/31/18 0000 Signed Impressions: Service Date/Time: January 17:09 - CONCLUSION: 1. There is a nasogastric tube coiled within the stomach. 2. Small left basilar effusion. 3. Overall size of the effusion at the left base has decreased when compared to previous dated 01/30/18. Osmin Lemus MD Chest X-Ray 01/30/18 0600 Signed Impressions: Service Date/Time: Tuesday, January 30, 2018 03:55 - CONCLUSION: Slight improvement in aeration Tommie Solis MD Laboratory Tests Test 01/29/18 18:30 01/30/18 00:00 01/30/18 05:55 01/30/18 06:25 Sodium Level 150 MEQ/L 147 MEQ/L 146 MEQ/L Serum Osmolality 306 MOSM/KG 303 MOSM/KG 300 MOSM/KG White Blood Count 9.1 TH/MM3 Red Blood Count 2.99 MIL/MM3 Hemoglobin 9.2 GM/DL Hematocrit 26.2 % Mean Corpuscular Volume 87.8 FL Mean Corpuscular Hemoglobin 30.8 PG Mean Corpuscular Hemoglobin Concent 35.1 % Red Cell Distribution Width 14.2 % Platelet Count 203 TH/MM3 Mean Platelet Volume 7.1 FL CBC Comment AUTO DIFF Differential Total Cells Counted 100 Neutrophils % (Manual) 66 % Band Neutrophils % 13 % Lymphocytes % 9 % Monocytes % 2 % Neutrophils # (Manual) 8.1 TH/MM3 Metamyelocytes 8 % Myelocytes 2 % Differential Comment FINAL DIFF MANUAL Platelet Estimate NORMAL Platelet Morphology Comment NORMAL Red Cell Morphology Comment NORMAL Phosphorus Level 3.3 MG/DL Magnesium Level 2.2 MG/DL Phenytoin (Dilantin) Level 11.9 MCG/ML Urine Specific [place] 1.007 Test 01/30/18 12:10 01/30/18 18:00 01/31/18 00:30 01/31/18 06:00 Sodium Level 142 MEQ/L 144 MEQ/L 144 MEQ/L 143 MEQ/L Serum Osmolality 299 MOSM/KG 304 MOSM/KG 300 MOSM/KG 302 MOSM/KG White Blood Count 9.5 TH/MM3 Red Blood Count 2.69 MIL/MM3 Hemoglobin 8.2 GM/DL Hematocrit 23.8 % Mean Corpuscular Volume 88.3 FL Mean Corpuscular Hemoglobin 30.6 PG Mean Corpuscular Hemoglobin Concent 34.6 % Red Cell Distribution Width 14.0 % Platelet Count 184 TH/MM3 Mean Platelet Volume 7.7 FL Blood Urea Nitrogen 15 MG/DL Creatinine 0.48 MG/DL Random Glucose 155 MG/DL Calcium Level 7.5 MG/DL Potassium Level 3.2 MEQ/L Chloride Level 108 MEQ/L Carbon Dioxide Level 23.1 MEQ/L Anion Gap 12 MEQ/L Estimat Glomerular Filtration Rate 129 ML/MIN Test 01/31/18 08:40 02/01/18 04:30 02/01/18 07:17 Phenytoin (Dilantin) Level 12.5 MCG/ML Phenobarbital Level 5.9 MCG/ML White Blood Count 8.8 TH/MM3 Red Blood Count 2.70 MIL/MM3 Hemoglobin 8.3 GM/DL Hematocrit 23.7 % Mean Corpuscular Volume 87.5 FL Mean Corpuscular Hemoglobin 30.8 PG Mean Corpuscular Hemoglobin Concent 35.3 % Red Cell Distribution Width 14.5 % Platelet Count 180 TH/MM3 Mean Platelet Volume 7.2 FL Blood Urea Nitrogen 12 MG/DL Creatinine 0.48 MG/DL Random Glucose 165 MG/DL Calcium Level 7.6 MG/DL Sodium Level 140 MEQ/L Potassium Level 3.5 MEQ/L Chloride Level 109 MEQ/L Carbon Dioxide Level 20.3 MEQ/L Anion Gap 11 MEQ/L Estimat Glomerular Filtration Rate 129 ML/MIN Serum Osmolality 293 MOSM/KG Blood Gas Puncture Site ART LINE Blood Gas Patient Temperature 98.6 Blood Gas HCO3 19 mmol/L Blood Gas Base Excess -2.4 mmol/L Blood Gas Oxygen Saturation 95 % Arterial Blood pH 7.64 Arterial Blood Partial Pressure CO2 18 mmHg Arterial Blood Partial Pressure O2 82 mmHg Arterial Blood Oxygen Content 10.3 Vol % Arterial Blood Carboxyhemoglobin 1.4 % Arterial Blood Methemoglobin 1.4 % Blood Gas Hemoglobin 7.7 G/DL Oxygen Delivery Device VENTILATOR Blood Gas Ventilator Setting 18/500/+5/1.0 Blood Gas Inspired Oxygen 40 % (Js Nj) Medical Decision Making Impression and Plan Impression: 1. Large frontal neoplasm noted on CT scan and previous MRI imaging. 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 Postoperative Diagnosis: (1) Meningioma, multiple (2) Parasagittal meningioma 1. Recurrent left parafalcine meningioma 2. 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 Withdrawal of BLE to noxious stimulation. No eye opening but pupils sluggish. Now sedated w/max propofol & addition of midazolam. On levetiracetam, fosphenytoin & phenobarbital for seizures. Afebrile past 24 hrs. SBP intermittently outside desired range. Reviewed labs for today. Essentially stable haemoglobin level. Sodium 140. Hypokalemia resolved. CT brain demonstrates stable left frontal & posterior temporal region ventricular haemorrhage & edema w/slight mass effect [id number] shift of third ventricle measuring 3 mm. No new haemorrhage identified. EEG w/right frontocentral periodic lateralized epileptiform discharge -like activity c/w seizure focus & focal abnormality in the right frontocentral head region. DIANN drain with 45 mL for the past 24 hrs as of shift change this morning. POD #7 () s/p: Bifrontal craniotomy for resection 1. Left parafalcine meningioma 2. Bilateral cribriform plate -Planum sphenoidale meningioma 3. Use of frameless intraoperative stereotactic navigation for planning of the incision site and bone flap and resection of the parafalcine and frontal skull base neoplasm. Plan: Primary management per Hospitalist. Critical care management per Ict Teacher. Seizure management per Neurology. Neuro checks. Stat CT brain for any decline in neuro status. Maintain SBP between 110 and 140 mm Hg. Monitor DIANN drain output. Will try to d/c DIANN drain while EEG is off patient. CT brain today. Appreciate Ict Teacher's & Neurology's assistance in managing this critically ill patient. ADDENDUM at 1224: The DIANN drain's bulb suction was released. The insertion site was cleaned with betadine swabs. The retaining suture was cut & removed. Then the drain was slowly withdrawn w/o any difficulty. It appeared intact. There was no drainage noted from the insertion site. The track was massaged for a few minutes then prepped w/Cavilon and 3 steri-strips were applied. The patient tolerated the procedure well. BET (Js Nj) Attending Statement The exam, history, and the medical decision-making described in the above note were completed with the assistance of the mid-level provider. I reviewed and agree with the findings presented. I attest that I had a [id number] encounter with the patient on the same day, and personally performed and documented my assessment and findings in the medical record. Patient's examination on 02/01/2018 unchanged. Still with dilated sluggishly reactive pupils, disconjugate spontaneous extraocular movements-wandering type gaze. Remains on triple anticonvulsant therapy. 02/01/2018 CT scan head images reveal persistent frontal edema with 6 mm midline shift. Also bilateral parieto-occipital hypodense regions consistent with multifocal infarction. Etiology undetermined. Patient's CT angiogram postop did not reveal significant vascular abnormality. Given persistent minimal exam findings and CT scan images, prognosis appears to be very poor. Palliative care to follow. (Tolu Herring MD) Js Nj Feb 01, 2018 09:17 Tolu Herring MD Feb 05, 2018 16:14
--- NOTE | 2018-02-01 09:25 | MG ---
cc: Smith Rodrigues MD INDICATION: This is a followup EEG, on Diprivan and Versed, hemorrhage. DESCRIPTION: PLEDs out of the right central frontal head region, still has the phase reversing over the right central and frontal head region. Otherwise, the same. It looks a little bit less sharp. There is some breach rhythm in that region, but still phase reversing throughout the recording. No prolonged seizure activity is noted. IMPRESSION: The discharges are a little less frequent and less sharp, although still I would say very frequent and still abnormal over that right head region. No prolonged seizure activity was noted, so it looks somewhat improved from prior electroencephalograms. MD KILO Montelongo/LUPE , 09:17 AM , 09:25 AM
--- NOTE | 2018-02-01 09:35 | MG ---
cc: Smith Rodrigues MD INDICATION: Hyperventilation not performed, on Diprivan. This is a repeat EEG, hemorrhage, mass effect. Medications not listed. DESCRIPTION: Again, there are discharges over the right central frontal head region, very frequent throughout the recording, at times every other second it is noted. Some diffuse theta rhythms and beta rhythms noted. I would say these are less sharp than they were prior. No prolonged seizure activity is noted. Photic stimulation is performed without significant posterior driving. IMPRESSION: This looks improved from prior recordings on the discharges, but there is still abnormality persistent over that right frontal central head region. Still some epileptiform characteristics to it. Smith Rodrigues MD DJM/KD , 09:18 AM , 09:35 AM
[2018-02-01] MEDS: POTASSIUM CHLOR 40 MEQ PREMIX 100 ML IV PRN (10:09)
[2018-02-01] MEDS: POLYETHYLENE GLYCOL 17 GM PKG NG SCH ×2 (10:10→22:35)
[2018-02-01] MEDS: DOCUSATE SODIUM 100 MG/10 ML UDC PO SCH ×2 (10:10→22:35)
[2018-02-01] MEDS: LACTULOSE SYRUP 20 GM/30 ML CUP PO SCH ×4 (10:10→22:35)
[2018-02-01] MEDS: CHLORHEXIDINE 0.12% (ORAL KIT) 15 ML CUP MT SCH ×2 (10:11→22:40)
[2018-02-01] MEDS: SENNOSIDES SYRUP 8.8 MG/5 ML CUP PO SCH ×2 (10:11→22:35)
[2018-02-01] MEDS: LANSOPRAZOLE SOLUTAB 30 MG TAB NG SCH (10:11)
[2018-02-01] MEDS: NYSTATIN 100,000 U/GM PWD 15 GM BTL TOPICAL SCH ×2 (10:30→22:40)
--- NOTE | 2018-02-01 13:58 | RADRPT ---
EXAM DATE/TIME: 02/01/2018 13:16 [facility] COMPARISON: MRI BRAIN STEALTH W CONTRAST, January 24, 2018, 10:18. CT BRAIN W/O CONTRAST, January 26, 2018, 13:48. INDICATIONS : Follow up meningioma resection. RADIATION DOSE: 59.04 CTDIvol (mGy) MEDICAL HISTORY : Dementia. Brain mass SURGICAL HISTORY : Craniotomy ENCOUNTER: Subsequent ACUITY: 1 week PAIN SCALE: Non-responsive LOCATION: cranial TECHNIQUE: Multiple contiguous axial images were obtained of the head. Using automated exposure control and adj ustment of the mA and/or kV according to patient size, radiation dose was kept as low as reasonably a chievable to obtain optimal diagnostic quality images. DICOM format image data is available electro nically for review and comparison. FINDINGS: There is good approximation of the frontal craniotomy flap. There is evidence of increased mass effe ct/edema in the left frontal region with effacement of the frontal horn and interval development of 6 mm midline shift towards the right. Hyperdensities at the surgical site are similar in size. Incre ased prominence to a regional area of hypodensity in the right mid convexity parietal-occipital regio n, now measuring 5.4 cm. Interval development of 2 focal hypodensities in the left posterior tempora l region (1.4 cm) and posterior left occipital region (2.2 cm). There is extension of both of the oc cipital hypodensities into the high convexity parietal region. There is interval development of effa cement of the occipital horn on the left side. The parenchymal hemorrhage in the left low convexity anterior occipital region has decreased in density. The 3rd ventricle is slitlike, representing a new finding from prior. The posterior fossa structures are grossly intact. CONCLUSION: Multifocal areas of increased hypodensity with mass effect including the surgical site left frontal r egion, and bilateral temporal/parietal/ occipital regions. The findings suggest multifocal infarctio ns. Interval development of 6 mm midline shift towards the right and effacement of the left occipita l horn and left frontal horn. Otis Huff MD on February 01, 2018 at 13:50 Board Certified Radiologist. This report was verified electronically.
--- NOTE | 2018-02-01 14:48 | HHI.HCPN ---
Reason for visit a. To assist with evaluation and management of symptoms including: Encephalopathy, seizures b. To assist medical decision maker(s) with: better understanding of current medical conditions; weighing benefits/burdens of medical treatment options; making medical treatment decisions. (Kassi Tang) Subjective/Interval History Patient seen to follow-up on symptom management and goals of care. 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 She continues to have seizures seen on EEG in the right frontal/ central regions. Neurology is following and up titrating anti-seizure medications. She remains on propofol 50 mcg/kg/min and Versed 6 mg/h in addition to Keppra 1000 mg IV 3 times daily, phenobarbital 90 mg IV every 4 hours, fosphenytoin 100 mg IV every 6 hours. With a brief sedation vacation she is seen to have slight withdrawal/flexion of the lower extremities with no response in the upper extremities. Continuous EEG ordered and pending. EEG done on to prevent and Versed shows PLED's out of the right central frontal head region, a little less frequent and less sharp although still very frequent and still abnormal over the right head region. No prolonged seizure activity was noted, looking somewhat improved from the prior electroencephalograms. Follow-up EEG to that again shows discharges of the right central frontal head region, very frequent throughout the recording, at times every other second with some diffuse theta rhythms and beta rhythms noted. These were noted to be less sharp than they were prior without prolonged seizure activity noted. Photic stimulation is performed without significant posterior driving. This EEG looked improved from prior recordings but still abnormal persistently over the right frontal central head region with some epileptiform characteristics. Head CT done today shows multifocal areas of increased hypodensity with mass- effect including the surgical site left frontal region and bilateral temporal/ parietal/occipital regions. Findings suggest multifocal infarctions with interval development of a 6 mm midline shift towards the right and effacement of the left occipital horn and left frontal horn. Labs show WBC 8.8, hemoglobin 8.3, hematocrit 23.7, platelets 180, sodium 140, potassium 3.5, BUN 12, creatinine 0.48, random glucose 165, arterial blood gas shows pH 7.64, PCO2 18, PO2 82, HCO3 19, base excess -2.4, saturation 95% on 40 % FiO2. Phenytoin level 12.5 (10-20), phenobarbital 5.9. (15-40). . Family/friend interactions Spoke with patient's sister, Karla, and updated her as to the new clinical findings of continued seizures and his CT results. Laboratory values and physical exam findings were reviewed. Sister states she is aware that the patient is not recovering at the rate hoped for and that if she continues to decline, decisions on goals of care will have to be addressed. At this time she wishes to continue her full CODE STATUS but is aware that in the case of an acute decline inpatient status these decisions may become imminent. She does state that if her sister does not survive she would like her to be considered as an organ donor. . (Kassi Tang) Advance Directives Living Will: Never completed Health Care Surrogate: Never completed Durable Power of Vehicle Insurance Agent: Never completed (Kassi Tang) Advance Directive Specifics Health Care Surrogate(s): Never completed. Documented care wishes: Never completed. . (Kassi Tang) Objective Vital Signs Date Time Temp Pulse Resp B/P (MAP) Pulse Ox O2 Delivery O2 Flow Rate FiO2 02/01/18 13:36 100 100 02/01/18 12:01 100 40 02/01/18 07:36 97 40 02/01/18 06:00 84 02/01/18 04:08 96 40 02/01/18 04:00 85 02/01/18 04:00 40 02/01/18 04:00 98.6 85 18 126/60 (82) 96 02/01/18 02:00 86 02/01/18 01:24 98 40 02/01/18 00:00 40 02/01/18 00:00 82 02/01/18 00:00 98.8 87 18 131/65 (87) 99 01/31/18 22:20 97 40 01/31/18 22:00 82 01/31/18 20:00 82 01/31/18 20:00 98.9 82 18 102/67 (79) 98 Automatic Cuff 01/31/18 20:00 40 01/31/18 19:00 98 Mechanical Ventilator 40 01/31/18 18:00 80 01/31/18 16:04 100 40 01/31/18 16:00 98.9 77 18 128/59 (82) 97 01/31/18 16:00 40 01/31/18 16:00 71 Intake & Output 02/01/18 02/01/18 07:00 19:00 Intake Total 444 ml 100 ml Output Total 1255.0 ml Balance -811.0 ml 100 ml IV Total 350 ml 100 ml Tube Feeding 34 ml Tube Irrigant 60 ml Output Urine Total 1200 ml Tube Feeding Residual Discard 30.0 ml Drainage Total 25 ml # Bowel Movements 0 Physical Exam CONSTITUTIONAL/GENERAL: This is an adequately nourished patient, intubated, sedated in no apparent distress. TUBES/LINES/DRAINS: Right PIV 2, left PIV 1, Hills catheter, ETT, OGT, left subclavian central line, right femoral arterial line. NECK: Orally intubated. CARDIOVASCULAR: Regular rate and rhythm without murmurs, gallops, or rubs. No JVD. Peripheral pulses symmetric. RESPIRATORY/CHEST: Symmetric, unlabored respirations. Clear to auscultation. Breath sounds equal bilaterally. No wheezes, rales, or rhonchi. GASTROINTESTINAL: Abdomen soft, nondistended. No hepato-splenomegaly, or palpable masses. Bowel sounds present. GENITOURINARY: Without palpable bladder distension. Hills catheter intact MUSCULOSKELETAL: 1+ left lower extremity edema with resolving bruising on the left foot. Right lower extremity with trace edema, tiny bruise seen on fourth right toe NEUROLOGICAL: Intubated, sedated. Pupils 2 mm, equal, sluggishly reactive, no nystagmus noted. Withdraws to pain slightly in lower extremities when sedation held briefly. PSYCHIATRIC: Sedated. . (Kassi Tang) Diagnostic Tests Laboratory Laboratory Tests Test 01/29/18 18:30 01/30/18 00:00 01/30/18 05:55 01/30/18 06:25 Sodium Level 150 MEQ/L (136-145) 147 MEQ/L (136-145) 146 MEQ/L (136-145) Serum Osmolality 306 MOSM/KG (275-295) 303 MOSM/KG (275-295) 300 MOSM/KG (275-295) White Blood Count 9.1 TH/MM3 (4.0-11.0) Red Blood Count 2.99 MIL/MM3 (4.00-5.30) Hemoglobin 9.2 GM/DL (11.6-15.3) Hematocrit 26.2 % (35.0-46.0) Mean Corpuscular Volume 87.8 FL (80.0-100.0) Mean Corpuscular Hemoglobin 30.8 PG (27.0-34.0) Mean Corpuscular Hemoglobin Concent 35.1 % (32.0-36.0) Red Cell Distribution Width 14.2 % (11.6-17.2) Platelet Count 203 TH/MM3 (150-450) Mean Platelet Volume 7.1 FL (7.0-11.0) CBC Comment AUTO DIFF Differential Total Cells Counted 100 Neutrophils % (Manual) 66 % (16-70) Band Neutrophils % 13 % (0-6) Lymphocytes % 9 % (9-44) Monocytes % 2 % (0-8) Neutrophils # (Manual) 8.1 TH/MM3 (1.8-7.7) Metamyelocytes 8 % (0-1) Myelocytes 2 % (0-0) Differential Comment FINAL DIFF MANUAL Platelet Estimate NORMAL (NORMAL) Platelet Morphology Comment NORMAL (NORMAL) Red Cell Morphology Comment NORMAL (NORMAL) Phosphorus Level 3.3 MG/DL (2.5-4.9) Magnesium Level 2.2 MG/DL (1.5-2.5) Phenytoin (Dilantin) Level 11.9 MCG/ML (10.0-20.0) Urine Specific Channing 1.007 (1.002-1.035) Test 01/30/18 12:10 01/30/18 18:00 01/31/18 00:30 01/31/18 06:00 Sodium Level 142 MEQ/L (136-145) 144 MEQ/L (136-145) 144 MEQ/L (136-145) 143 MEQ/L (136-145) Serum Osmolality 299 MOSM/KG (275-295) 304 MOSM/KG (275-295) 300 MOSM/KG (275-295) 302 MOSM/KG (275-295) White Blood Count 9.5 TH/MM3 (4.0-11.0) Red Blood Count 2.69 MIL/MM3 (4.00-5.30) Hemoglobin 8.2 GM/DL (11.6-15.3) Hematocrit 23.8 % (35.0-46.0) Mean Corpuscular Volume 88.3 FL (80.0-100.0) Mean Corpuscular Hemoglobin 30.6 PG (27.0-34.0) Mean Corpuscular Hemoglobin Concent 34.6 % (32.0-36.0) Red Cell Distribution Width 14.0 % (11.6-17.2) Platelet Count 184 TH/MM3 (150-450) Mean Platelet Volume 7.7 FL (7.0-11.0) Blood Urea Nitrogen 15 MG/DL (7-18) Creatinine 0.48 MG/DL (0.50-1.00) Random Glucose 155 MG/DL (74-106) Calcium Level 7.5 MG/DL (8.5-10.1) Potassium Level 3.2 MEQ/L (3.5-5.1) Chloride Level 108 MEQ/L (98-107) Carbon Dioxide Level 23.1 MEQ/L (21.0-32.0) Anion Gap 12 MEQ/L (5-15) Estimat Glomerular Filtration Rate 129 ML/MIN (>89) Test 01/31/18 08:40 02/01/18 04:30 02/01/18 07:17 Phenytoin (Dilantin) Level 12.5 MCG/ML (10.0-20.0) Phenobarbital Level 5.9 MCG/ML (15.0-40.0) White Blood Count 8.8 TH/MM3 (4.0-11.0) Red Blood Count 2.70 MIL/MM3 (4.00-5.30) Hemoglobin 8.3 GM/DL (11.6-15.3) Hematocrit 23.7 % (35.0-46.0) Mean Corpuscular Volume 87.5 FL (80.0-100.0) Mean Corpuscular Hemoglobin 30.8 PG (27.0-34.0) Mean Corpuscular Hemoglobin Concent 35.3 % (32.0-36.0) Red Cell Distribution Width 14.5 % (11.6-17.2) Platelet Count 180 TH/MM3 (150-450) Mean Platelet Volume 7.2 FL (7.0-11.0) Blood Urea Nitrogen 12 MG/DL (7-18) Creatinine 0.48 MG/DL (0.50-1.00) Random Glucose 165 MG/DL (74-106) Calcium Level 7.6 MG/DL (8.5-10.1) Sodium Level 140 MEQ/L (136-145) Potassium Level 3.5 MEQ/L (3.5-5.1) Chloride Level 109 MEQ/L (98-107) Carbon Dioxide Level 20.3 MEQ/L (21.0-32.0) Anion Gap 11 MEQ/L (5-15) Estimat Glomerular Filtration Rate 129 ML/MIN (>89) Serum Osmolality 293 MOSM/KG (275-295) Blood Gas Puncture Site ART LINE Blood Gas Patient Temperature 98.6 Blood Gas HCO3 19 mmol/L (22-26) Blood Gas Base Excess -2.4 mmol/L (-2-2) Blood Gas Oxygen Saturation 95 % (90-100) Arterial Blood pH 7.64 (7.380-7.420) Arterial Blood Partial Pressure CO2 18 mmHg (38-42) Arterial Blood Partial Pressure O2 82 mmHg (61-120) Arterial Blood Oxygen Content 10.3 Vol % (12.0-20.0) Arterial Blood Carboxyhemoglobin 1.4 % (0-4) Arterial Blood Methemoglobin 1.4 % (0-2) Blood Gas Hemoglobin 7.7 G/DL (12.0-16.0) Oxygen Delivery Device VENTILATOR Blood Gas Ventilator Setting 18/500/+5/1.0 Blood Gas Inspired Oxygen 40 % (Kassi Tang) Result Diagram: 02/01/18 0430 02/01/18 0430 Procedures 01/25/2018: Bifrontal craniotomy for resection of left parafalcine meningioma, bilateral cribriform plate-planum sphenoidale meningioma 01/25/2018: Continued intubation status post surgery. 01/26/2018: Left subclavian central line placement 01/26/2018: Right femoral arterial catheter placement . (Kassi Tang) Assessment and Plan Disease Oriented Problem List: (1) Brain mass (2) Confusion (3) Agitation Symptom Scale: (1) Confusion 0-10 Scale: Unable to quantify (Confusion is intermittent. Oriented to person place purpose and time at this evaluation.) (2) Agitation 0-10 Scale: Unable to quantify (Intermittent. No agitation at this time..) Pertinent Non-Medical Issues Psychosocial:She was born in [place] and moved to [place] in the mid 80's. She was never and has no children. 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 Spiritual: Spiritual in her own way but not associated with any organized catholic. Legal: Pending psychiatry consultation to determine capacity to make decisions. Ethical issues impacting care: Admitted under ex parte court order. . Important Contacts Sister: Karla Keller DCF propagator, Chelsey Bourgeois . Prognosis Her prognosis is guarded. It is unknown whether her intermittent confusion is secondary to baseline dementia or brain masses. She has been brought in under court order twice in the last month, once under a [place] act, the second 1 under an ex parte order. She has 2 very large masses in her brain, thought to be meningiomas, and is awaiting evaluation by neurosurgery to determine whether surgery is appropriate and if so when it would be scheduled. With surgery, she is at risk for surgical complications and postoperative deficits, without surgery she is at risk for further complications and decline. . Code Status: Full Code Plan PLAN: Legal decision maker: She is currently not capacitated as she is intubated and sedated. Per [place] statutes, her sister Karla Keller would be her healthcare decision maker. Goals: Aggressive at this time. CODE STATUS: FULL CODE SYMPTOMS: * Encephalopathy: She is status post craniotomy and electroencephalogram is showing right frontal slowing, no seizures. Today patient demonstrated no nystagmus on propofol 50 mcg/kg/min, Versed 6 mg an hour, Cerebyx, Keppra and Dilantin and continuous EEG is in process to evaluate for subclinical seizures. She remains intubated and sedated at this time but when on sedation vacation is withdrawn only lower extremities. * Seizures: She is currently on phenobarbital, Versed, propofol, Keppra and Cerebyx. Most recent EEG showed seizure activity. This morning's clinical exam revealing no nystagmus, while on sedation, undergoing continuous EEG. Neurology following. Palliative care will continue to follow the patient during hospital course as condition evolves, to assist patient/decision-maker with understanding of their medical conditions, weighing benefits/burdens of treatment options, for clarification of goals of treatment. Additionally will assist with any symptoms of palliative concern. . (Kassi Tang) Attestation To help prompt me to consider important information that might be impacting today's encounter and assessment, information from prior notes written by myself or my colleagues may have been "brought forward" into today's note. My signature on this note, however, is an attestation that I personally performed the exam, history, and/or decision-making noted today, and, unless otherwise indicated, the interactions with patient, family, and staff as well as the review of records all occurred today. I also attest that the listed assessment and stated plan reflect my best clinical judgment today based on the combination of historical information, prior notes, and today's exam/ interactions. When time spent is documented, it refers only to time spent today by the signer, or if indicated, combined time spent today by collaborating physician/nurse practitioner. . (Kassi Tang) Collaborating MD Comments Chart reviewed. Case discussed with palliative care WEATHER ALGORITHM SCIENTIST. Above WEATHER ALGORITHM SCIENTIST note reviewed and I concur. . (Jeremie Small MD) Kassi Tang Feb 01, 2018 14:47 Jeremie Small MD Feb 04, 2018 05:55
[2018-02-01] MEDS: ERYTHROMYCIN ETHYLSUCCINATE 200 MG/5 ML SUSP 100 ML BOTTLE PO SCH ×2 (16:24→17:31)
--- NOTE | 2018-02-01 17:09 | HHI.PR ---
Review/Management Diagnosis s/p meningioma resection with left frontal sz---sz improved since adding versed Now with increasing edema and bilateral cva Plan increase phenobarbital continue current level of versed and diprivan recheck EEG in am and recheck phenobarb level and phenytoin level in am Diagnosis/Plan: Subjective Subjective Comments No acute events reported Active Medications Current Medications Medications (Trade) Dose Ordered Sig/Yancy Route Start Time Stop Time Status Last Admin (Catapres) 0.1 mg Q6H PRN PO 01/18/18 19:30 01/22/18 13:06 Nicardipine HCl 25 mg/Sodium Chloride 260 ml @ 52 mls/hr TITRATE PRN IV 01/25/18 19:15 01/30/18 11:30 (Brethine Inj) 1 mg UNSCH PRN SQ 01/25/18 19:15 (Peridex 0.12% Liq) 15 ml BID@08,20 MT 01/25/18 20:00 02/01/18 10:11 Propofol 100 ml @ 2.709 mls/ hr TITRATE PRN IV 01/25/18 20:00 02/01/18 14:10 (Prevacid Odt) 30 mg DAILY NG 01/26/18 09:00 02/01/18 10:11 (Trandate Inj) 10 mg Q1HR PRN IV PUSH 01/26/18 07:15 01/30/18 05:23 (Tears Naturale Opth Soln) 1 drop Q8HR EACH EYE 01/26/18 14:00 02/01/18 14:10 (Albuterol Neb) 2.5 mg Q2HR NEB PRN NEB 01/26/18 07:15 01/29/18 20:12 (Tylenol 650 Mg/ 20 ml Liq) 650 mg Q6H PRN PO 01/26/18 07:15 (Colace Liq) 100 mg Q12HR PO 01/26/18 09:00 02/01/18 10:10 (Senna Liq) 8.8 mg BID PO 01/26/18 09:00 02/01/18 10:11 Potassium Chloride 100 ml @ 50 mls/hr Q2H PRN IV 01/26/18 07:45 02/01/18 10:09 Potassium Chloride 100 ml @ 50 mls/hr Q2H PRN IV 01/26/18 07:45 (K-Lyte Cl Eff) 50 meq UNSCH PRN PO 01/26/18 07:45 Potassium Chloride 100 ml @ 25 mls/hr UNSCH PRN IV 01/26/18 07:45 Potassium Chloride 100 ml @ 50 mls/hr Q2H PRN IV 01/26/18 07:45 01/29/18 14:37 Magnesium Sulfate 4 gm/Sodium Chloride 100 ml @ 50 mls/hr UNSCH PRN IV 01/26/18 07:45 (Mag-Ox) 800 mg UNSCH PRN PO 01/26/18 07:45 Magnesium Sulfate 2 gm/Sodium Chloride 100 ml @ 50 mls/hr UNSCH PRN IV 01/26/18 07:45 (K-Phos) 2,000 mg Q4H PRN PO 01/26/18 07:45 Sodium Phosphate 30 mmol/Sodium Chloride 250 ml @ 42 mls/hr UNSCH PRN IV 01/26/18 07:45 (K-Phos) 2,000 mg UNSCH PRN PO/TUBE 01/26/18 07:45 Potassium Phosphate 30 mmol/ Sodium Chloride 260 ml @ 42 mls/hr UNSCH PRN IV 01/26/18 07:45 01/28/18 09:09 (Mycostatin Powder) 1 applic Q12HR TOPICAL 01/26/18 21:00 02/01/18 10:30 (Levemir Inj) 15 units BID SQ 01/27/18 21:00 Future Hold 01/28/18 21:24 Fentanyl Citrate 250 ml @ 5 mls/hr TITRATE PRN IV 01/27/18 12:15 01/29/18 15:34 Levetriacetam 100 ml @ 400 mls/hr Q8HR IV 01/28/18 06:00 02/01/18 14:14 Phenylephrine HCl 40 mg/Sodium Chloride 500 ml @ 30 mls/hr TITRATE PRN IV 01/28/18 09:00 01/28/18 09:10 (D50w (Vial) Inj) 50 ml UNSCH PRN IV PUSH 01/28/18 17:30 01/29/18 20:03 (Glucagon Inj) 1 mg UNSCH PRN OTHER 01/28/18 17:30 (NovoLOG SUPPLEMENTAL SCALE) 1 Q4HR SQ 01/28/18 20:00 02/01/18 04:28 (Duoneb Neb) 1 ampule Q6HR NEB NEB 01/29/18 22:00 02/01/18 13:40 Fosphenytoin Sodium 100 mgpe/ Sodium Chloride 52 ml @ 104 mls/hr Q6H IV 01/30/18 20:00 02/01/18 14:14 Midazolam HCl 100 ml @ 6 mls/hr CONTINUOUS IV 01/31/18 16:45 02/01/18 06:29 Phenobarbital Sodium 90 mg/ Sodium Chloride 50.6923 ml @ 202.769 mls/hr Q4HR NEB IV 01/31/18 20:00 02/01/18 16:00 (Decadron Inj) 4 mg Q6HR IV PUSH 02/01/18 00:00 02/01/18 12:42 (Miralax) 17 gm BID NG 02/01/18 09:00 02/01/18 10:10 (Lactulose Liq) 30 ml QID PO 02/01/18 09:00 02/01/18 12:44 (Ees 200 Mg/5 ml Liq) 200 mg Q8H PO 02/01/18 09:00 02/01/18 16:24 Allergies Allergies Coded Allergies No Allergy Information Available (Unverified01/18/18) Exam I&O / VS 02/01/18 02/01/18 02/02/18 15:00 23:00 07:00 Intake Total 100 ml Balance 100 ml IV Total 100 ml Vital Signs Date Time Temp Pulse Resp B/P (MAP) Pulse Ox O2 Delivery O2 Flow Rate FiO2 02/01/18 15:39 98 40 02/01/18 13:36 100 100 02/01/18 12:01 100 40 02/01/18 07:36 97 40 02/01/18 06:00 84 02/01/18 04:08 96 40 02/01/18 04:00 85 02/01/18 04:00 40 02/01/18 04:00 98.6 85 18 126/60 (82) 96 02/01/18 02:00 86 02/01/18 01:24 98 40 02/01/18 00:00 40 02/01/18 00:00 82 02/01/18 00:00 98.8 87 18 131/65 (87) 99 4/5/18 22:20 97 40 01/31/18 22:00 82 01/31/18 20:00 82 01/31/18 20:00 98.9 82 18 102/67 (79) 98 Automatic Cuff 01/31/18 20:00 40 01/31/18 19:00 98 Mechanical Ventilator 40 01/31/18 18:00 80 Exam Comments nonresponsive CN intact MOTOR--no spontaneous limb movement , no sz. Objective Radiology Results CT--increase left frontal edama. Multifocal bilateral hypodensities c/w infarcts Micro and Labs Laboratory Tests Test 02/01/18 04:30 02/01/18 07:17 02/01/18 14:45 White Blood Count 8.8 Red Blood Count 2.70 Hemoglobin 8.3 Hematocrit 23.7 Mean Corpuscular Volume 87.5 Mean Corpuscular Hemoglobin 30.8 Mean Corpuscular Hemoglobin Concent 35.3 Red Cell Distribution Width 14.5 Platelet Count 180 Mean Platelet Volume 7.2 Blood Urea Nitrogen 12 Creatinine 0.48 Random Glucose 165 Calcium Level 7.6 Sodium Level 140 Potassium Level 3.5 Chloride Level 109 Carbon Dioxide Level 20.3 Anion Gap 11 Estimat Glomerular Filtration Rate 129 Serum Osmolality 293 Blood Gas Puncture Site ART LINE ART LINE Blood Gas Patient Temperature 98.6 98.6 Blood Gas HCO3 19 19 Blood Gas Base Excess -2.4 -3.8 Blood Gas Oxygen Saturation 95 95 Arterial Blood pH 7.64 7.46 Arterial Blood Partial Pressure CO2 18 28 Arterial Blood Partial Pressure O2 82 103 Arterial Blood Oxygen Content 10.3 11.2 Arterial Blood Carboxyhemoglobin 1.4 1.2 Arterial Blood Methemoglobin 1.4 1.7 Blood Gas Hemoglobin 7.7 8.2 Oxygen Delivery Device VENTILATOR VENTILATOR Blood Gas Ventilator Setting 18/500/+5/1.0 [facility]/AC14/450/1.2/+5 Blood Gas Inspired Oxygen 40 40 Diagnostic Tests EEG--still with left frontal epileptiform activity , but improved from prior Campbell Lockwood MD PhD Feb 01, 2018 17:09
[2018-02-01 23:55] LABS: DIRECT BILIRUBIN ADULT 0.2 MG/DL (0.0-0.2); INDIRECT BILIRUBIN 0.1 MG/DL (0.0-0.8); PHENYTOIN (DILANTIN) 10.9 MCG/ML (10.0-20.0); TOTAL BILIRUBIN ADULT 0.3 MG/DL (0.2-1.0); TOTAL PROTEIN 5.4 GM/DL (6.4-8.2)
[2018-02-01 23:56] LABS: ALBUMIN 1.6 GM/DL (3.4-5.0)
[2018-02-02] VITALS (19 sets, daily range): BP systolic 112–131; BP diastolic 58–95; PULSE 80–91; RESP 14; TEMP 98.7–101.7; O2SAT 96–100
[2018-02-02] MEDS: ERYTHROMYCIN ETHYLSUCCINATE 200 MG/5 ML SUSP 100 ML BOTTLE PO SCH ×4 (00:48→21:48)
[2018-02-02] MEDS: PROPOFOL 1000 MG/100 ML INJ 100 ML IV PRN ×6 (00:48→22:52)
[2018-02-02] MEDS: MIDAZOLAM 100 MG/NS 100 ML DRIP Premix IV SCH ×2 (00:48→19:00)
[2018-02-02] MEDS: FOSPHENYTOIN INJ 100 MGPE in SODIUM CHLORIDE 0.9% INJ 50 ML IV SCH ×4 (00:49→21:47)
[2018-02-02] MEDS: PHENobarbital INJ 90 MG in SODIUM CHLORIDE 0.9% INJ 50 ML IV SCH ×6 (01:05→21:46)
[2018-02-02] MEDS: RESP: ALBUTEROL 2.5 MG/IPRATROPIUM 0.5 MG NEB (SCH) NEB ×4 (03:35→21:17)
--- NOTE | 2018-02-02 04:10 | RADRPT ---
EXAM DATE/TIME: 02/02/2018 02:51 [facility] COMPARISON: CHEST SINGLE AP, January 30, 2018, 3:55. INDICATIONS : Respiratory failure. MEDICAL HISTORY : Dementia. Brain mass SURGICAL HISTORY : Craniotomy ENCOUNTER: Subsequent ACUITY: 1 month PAIN SCORE: Non-responsive. LOCATION: Bilateral chest FINDINGS: Single AP view of the chest. Endotracheal tube, nasogastric tube, left subclavian central venous cath eter remain in place. Persistent left lower lobe consolidation versus atelectasis and small left pleu ral effusion. No significant interval change. No evidence of pneumothorax. CONCLUSION: No significant interval change. Persistent left lower lobe consolidation versus atelectasis and small left pleural effusion. Parminder Gonzalez MD on February 02, 2018 at 4:08 Board Certified Radiologist. This report was verified electronically.
[2018-02-02 04:32] LABS: BICARBONATE 22.1 MEQ/L (21.0-32.0); CALCIUM 7.4 MG/DL (8.5-10.1); CREATININE 0.44 MG/DL (0.50-1.00); PHENYTOIN (DILANTIN) 10.6 MCG/ML (10.0-20.0)
[2018-02-02 04:45] LABS: CALCIUM-PROTEIN CORRECTED 8.4 MG/DL (8.5-10.1); TOTAL PROTEIN 5.3 GM/DL (6.4-8.2)
--- NOTE | 2018-02-02 04:49 | RADRPT ---
EXAM DATE/TIME: 02/02/2018 02:55 [facility] COMPARISON: No previous studies available for comparison. INDICATIONS : Ileus MEDICAL HISTORY : Dementia. Brain mass SURGICAL HISTORY : Craniotomy ENCOUNTER: Subsequent ACUITY: 1 day PAIN SCORE: Non-responsive. LOCATION: abdomen FINDINGS: 2 AP supine views of the abdomen. Moderately distended air-filled transverse colon and cecum. Scatter ed stool in the colon. Nondilated air-filled loop of small bowel is seen in the left lower quadrant. Nasogastric tube with tip in the stomach. No abnormal abdominal calcification. Phleboliths in the lef t hemipelvis. Moderate to severe bony degenerative findings of the lumbar spine. CONCLUSION: Nonspecific bowel gas pattern. Parminder Gonzalez MD on February 02, 2018 at 4:46 Board Certified Radiologist. This report was verified electronically.
[2018-02-02] MEDS: ARTIFICIAL TEARS OPTH SOLN 15 ML BTL EACH EYE SCH ×3 (05:11→21:48)
[2018-02-02] MEDS: INSULIN ASPART SUPPLEMENTAL SCALE SQ SCH ×6 (05:16→20:00)
[2018-02-02] MEDS: levETIRAcetam INJ 100 ML IV SCH ×3 (05:17→21:47)
[2018-02-02] MEDS: DEXAMETHASONE SOD PHOS 4 MG/ML VIAL IV PUSH SCH ×4 (05:17→21:47)
--- NOTE | 2018-02-02 08:16 | HHI.NSPN ---
(Tate Cisneros) History Chief Complaint: Unable to obtain due to patient's clinical condition. (Tate Cisneros) Interval History 01/18: This is a 67-year-old female patient with history of a previous brain mass for which she underwent evaluation. She was brought today to the emergency room after court order because she became aggressive and hostile at home, the patient lives with her mother, who has Alzheimer disease. She has been fighting with her sister and now she is being brought for medical evaluation and psychiatric evaluation. The patient reports that she was previously seen because of a brain tumor and she still has not decided what to do with it. 01/19: Patient history of brain tumor. 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 01/23: The patient is in the bathroom when seen. She is assisted up from the commode and uses a walker to ambulate back to her bed where she sits on the edge of it. She denies any headache or dizziness. She does state that her vision is off but she is not able to describe it any further. She has pain to the right elbow from a fall, otherwise she has no pain to the extremities. She denies any numbness or tingling to the extremities. She does have some difficulty finding the correct word she wants to use. No sensorimotor deficits are noted. 01/24: When seen this afternoon the patient is awake and alert talking with the Rack Pusher. She does endorse a slight headache this morning but denies any dizziness, visual problems or nausea. She does have some right elbow and left foot pain. She also says that she hurt both knees. Otherwise she has no pain into the extremities and denies any numbness or tingling to them. There is no change in her neuro exam from yesterday. 01/25: The patient went to the operating room for a bifrontal craniotomy for resection of a left parafalcine meningioma and a bilateral cribriform plate- planum sphenoidale meningioma. Post-operatively she was transferred to [facility] for further care and monitoring. 01/26: This morning the patient remains intubated and mechanically ventilated. She is sedated with propofol. A nicardipine drip is infusing for blood pressure control. She did withdraw the right hand and both feet to noxious stimulation upon examination. 01/27: The Guard Rail Installer reported that the patient was having a subclinical seizure seen on the EEG this morning. When the patient was seen the cost accounting clerk had just completed the EEG and said the patient was having seizures to the right frontal. After being evaluated the patient was noted to have twitching of the first and second digits of the right hand briefly. She remains obtunded and is sedated with propofol. She is also still intubated and mechanically ventilated. She did move both feet to noxious stimulation. 01/28: No seizure activity noted when seen this morning. She continues to be obtunded but maximally sedated with propofol. She is still intubated and mechanically ventilated. She moved only the lower extremities slightly to local noxious stimulation and had partial left eye opening with central noxious stimulation. She was evaluated by Neurology yesterday who adjusted her antiepileptic medication. Another EEG is to be done this morning. 01/29: Repeat EEG done yesterday with right hemisphere slowing. When seen she is lethargic. She is still intubated and mechanically ventilated. The propofol is infusing for sedation. With sedation held she did partially open her eyes and responded to noxious stimulation to the lower extremities only. There is no significant change in her exam. 01/30: The patient's sedation and fentanyl have been held for a while prior to her being seen. She remains obtunded. She continues to be intubated and mechanically ventilated. She had no eye opening to stimulation. She did have some bilateral foot flexion with extension of the right knee to noxious stimulation. Her pupils did appear sluggish. Bilateral nystagmus is noted. 01/31: When seen this morning the patient is obtunded and having a continuous EEG. Nursing did report that the patient was started on phenobarbital yesterday and her fosphenytoin was adjusted. She is also on levetiracetam as well for the seizures. Her propofol is infusing at the maximum dose. She had slight withdrawal of the lower extremities to noxious stimulation upon examination which is the same as what Nursing said the patient did for her. No nystagmus noted. 04/06: This morning the patient is still obtunded. She does have propofol and midazolam infusing for sedation. She continues to be intubated and mechanically ventilated. With her sedation held for several minutes she has slight withdrawal /flexion of the lower extremities. No response with the upper extremities. EEG not attached to patient but Nursing does say she is to be reattached again for continuous EEG monitoring. 02/02: Pt sedated on Diprivan and Versed. She does not open her eyes or follow commands. (Tate Cisneros) System Review Comments Not able to obtain given clinical condition. (Tate Cisneros) Exam Results Vital Signs Date Time Temp Pulse Resp B/P (MAP) Pulse Ox O2 Delivery O2 Flow Rate FiO2 02/02/18 07:30 100 40 02/02/18 06:00 81 02/02/18 04:00 98.7 14 117/95 (102) 02/01/18 20:00 Mechanical Ventilator Intake and Output 02/02/18 02/02/18 02/03/18 08:00 16:00 00:00 Intake Total 835 ml Output Total 1820.0 ml Balance -985.0 ml (Tate Cisneros) Physical Examination General: Patient sedated and intubated in the ICU with stable vital signs. Eyes: Pupils 4mm bilaterally sluggish reaction right more than left. Resp: Intubated. Pressure controlled. Rate 14. Peep 5. FiO2 40% Peep 5. Heart: NSR no murmurs. Abd: Soft positive bs. OG TFs at 10cc. Skin: coronal incision clean and dry. Muscle: Not following for muscle testing. Sedated. Neuro: Pt sedated on Diprivan and versed. She does not open her eyes. Pupils 4mm bilaterally sluggish reaction right more than left. (Tate Cisneros) Lab, Micro, Other Results Last Impressions Chest X-Ray 02/02/18599 Signed Impressions: Service Date/Time: Friday, February 02, 2018 02:51 - CONCLUSION: No significant interval change. Persistent left lower lobe consolidation versus atelectasis and small left pleural effusion. Parminder Gonzalez MD Abdomen X-Ray 02/02/18599 Signed Impressions: Service Date/Time: Friday, February 02, 2018 02:55 - CONCLUSION: Nonspecific bowel gas pattern. Parminder Gonzalez MD Head CT 02/01/18 0800 Signed Impressions: Service Date/Time: Thursday, February 01, 2018 13:16 - CONCLUSION: Multifocal areas of increased hypodensity with mass effect including the surgical site left frontal region, and bilateral temporal/parietal/ occipital regions. The findings suggest multifocal infarctions. Interval development of 6 mm midline shift towards the right and effacement of the left occipital horn and left frontal horn. Otis Huff MD Foot X-Ray 01/29/18 0000 Signed Impressions: Service Date/Time: Monday, January 29, 2018 20:36 - CONCLUSION: 1. No acute findings. Andrey Pearson MD Head CTA 01/25/18 0000 Signed Impressions: Service Date/Time: Thursday, January 25, 2018 17:59 - CONCLUSION: No acute vascular findings Tommie Solis MD Brain MRI 01/24/18 0000 Signed Impressions: Service Date/Time: December 10:18 - CONCLUSION: Large enhancing mass in the upper left frontal lobe as well as dural enhancement along the base of the skull anterior midline. Vern Boo MD Laboratory Tests Test 02/01/18 14:45 02/01/18 23:00 02/02/18 03:30 Blood Gas Puncture Site ART LINE Blood Gas Patient Temperature 98.6 Blood Gas HCO3 19 mmol/L Blood Gas Base Excess -3.8 mmol/L Blood Gas Oxygen Saturation 95 % Arterial Blood pH 7.46 Arterial Blood Partial Pressure CO2 28 mmHg Arterial Blood Partial Pressure O2 103 mmHg Arterial Blood Oxygen Content 11.2 Vol % Arterial Blood Carboxyhemoglobin 1.2 % Arterial Blood Methemoglobin 1.7 % Blood Gas Hemoglobin 8.2 G/DL Oxygen Delivery Device VENTILATOR Blood Gas Ventilator Setting PRVC/AC14/450/1.2/+5 Blood Gas Inspired Oxygen 40 % Sodium Level 140 MEQ/L 141 MEQ/L Serum Osmolality 293 MOSM/KG Total Bilirubin 0.3 MG/DL Direct Bilirubin 0.2 MG/DL Indirect Bilirubin 0.1 MG/DL Aspartate Amino Transf (AST/SGOT) 15 U/L Alanine Aminotransferase (ALT/SGPT) 25 U/L Alkaline Phosphatase 50 U/L Total Protein 5.4 GM/DL 5.3 GM/DL Albumin 1.6 GM/DL Amylase Level 39 U/L Lipase 97 U/L Phenytoin (Dilantin) Level 10.9 MCG/ML 10.6 MCG/ML Phenobarbital Level 17.2 MCG/ML 20.2 MCG/ML Blood Urea Nitrogen 8 MG/DL Creatinine 0.44 MG/DL Random Glucose 168 MG/DL Calcium Level 7.4 MG/DL Potassium Level 3.6 MEQ/L Chloride Level 109 MEQ/L Carbon Dioxide Level 22.1 MEQ/L Anion Gap 10 MEQ/L Estimat Glomerular Filtration Rate 142 ML/MIN Protein Corrected Calcium 8.4 MG/DL (Tate Cisneros) Medical Decision Making Impression and Plan Impression: 1. Large frontal neoplasm noted on CT scan and previous MRI imaging. 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 Postoperative Diagnosis: (1) Meningioma, multiple (2) Parasagittal meningioma 1. Recurrent left parafalcine meningioma 2. 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 No new haemorrhage identified. EEG w/right frontocentral periodic lateralized epileptiform discharge -like activity c/w seizure focus & focal abnormality in the right frontocentral head region. DIANN drain with 45 mL for the past 24 hrs as of shift change this morning. () s/p: Bifrontal craniotomy for resection 1. Left parafalcine meningioma 2. Bilateral cribriform plate -Planum sphenoidale meningioma 3. Use of frameless intraoperative stereotactic navigation for planning of the incision site and bone flap and resection of the parafalcine and frontal skull base neoplasm. Plan: Continue to monitor neuro exam Continue with current care. Continue with seizure control per neurology. (Tate Cisneros) Attending Statement The exam, history, and the medical decision-making described in the above note were completed with the assistance of the mid-level provider. I reviewed and agree with the findings presented. I attest that I had a [id number] encounter with the patient on the same day, and personally performed and documented my assessment and findings in the medical record. Neurologic exam remains very poor with follow-up CT scan head with multifocal infarcts and swelling. Her prognosis is grim. Palliative care on board. (Michael Dunbar MD) Tate Cisneros Feb 02, 2018 08:16 Michael Dunbar MD Feb 02, 2018 11:02
[2018-02-02] MEDS: LACTULOSE SYRUP 20 GM/30 ML CUP PO SCH ×4 (09:01→21:45)
[2018-02-02] MEDS: LANSOPRAZOLE SOLUTAB 30 MG TAB NG SCH (09:02)
[2018-02-02] MEDS: DOCUSATE SODIUM 100 MG/10 ML UDC PO SCH ×2 (09:02→21:48)
[2018-02-02] MEDS: SENNOSIDES SYRUP 8.8 MG/5 ML CUP PO SCH ×2 (09:02→21:48)
[2018-02-02] MEDS: POLYETHYLENE GLYCOL 17 GM PKG NG SCH ×2 (09:02→21:47)
[2018-02-02] MEDS: CHLORHEXIDINE 0.12% (ORAL KIT) 15 ML CUP MT SCH ×2 (09:02→21:48)
[2018-02-02] MEDS: NYSTATIN 100,000 U/GM PWD 15 GM BTL TOPICAL SCH ×2 (09:03→21:00)
[2018-02-02 09:49] LABS: HEMATOCRIT 26.1 % (35.0-46.0); HEMOGLOBIN 8.8 GM/DL (11.6-15.3); MEAN CORPUSCULAR HEMOGLOBIN 29.8 PG (27.0-34.0); MEAN CORPUSCULAR HGB CONC 33.9 % (32.0-36.0); MEAN PLATELET VOLUME 8.5 FL (7.0-11.0); PLATELET COUNT 190 TH/MM3 (150-450); RED BLOOD COUNT 2.96 MIL/MM3 (4.00-5.30); RED CELL DISTRIBUTION WIDTH 14.8 % (11.6-17.2); WHITE BLOOD COUNT 9.7 TH/MM3 (4.0-11.0)
--- NOTE | 2018-02-02 10:33 | HHI.CCPN ---
Subjective Remarks/Hospital Course 67-year-old female patient with history of a previous brain mass for which she underwent evaluation. She was after court order because she became aggressive and hostile at home. The patient lives with her mother, who has Alzheimer disease. The CT of the head performed in the emergency department showed an Extra-axial left frontal mass again seen with left to right midline shift, likely related to meningioma. She has undergone another tumor resection by Dr. Herring today. The patient remains postprocedure intubated, also the repeated postoperative CAT scan of the head show significant amount of brain edema. 01/26: FiO2 remains at 75%. Small left pleural effusion/atelectasis noted. Remains on 3% at [address] brain revealed stable cerebral edema with stable hemorrhage. Sedated on propofol drip at 40 mcg/kg/min 01/27: FiO2 down to 50%. Withdraws to pain bilateral upper and lower extremities. Currently on propofol drip at 45 mcg/kg/min. Tolerating tube feeds. 01/28: FiO2 down to 40%. Opens eyes to voice but currently not following commands. No tremor activity noted. Repeat EEG performed but results are pending. Currently levetiracetam and 1000 mg IV 3 times daily with phenytoin level at therapeutic levels 01/29: T-max 99. Currently afebrile. Noted right hemispheric slowing/sharps in the right central/frontal region. Currently levetiracetam thousand milligrams twice daily and fosphenytoin 100 mg 3 times daily. Tolerating CPAP. Neurologically opens eyes to voice withdraws bilateral lower extremities. Intermittent tremors upper extremity 01/30: no neuro exam changes noted. nsgy noticed some facial twitching and repeat EEG ordered, but no change in baseline neuro exam. 01/31: ongoing seizure focus. phenobarb added by neurology. neurologic exam stable , but remains poor. Subjective 6: Resting comfortably in bed in no acute distress. Afebrile. Continues to have focal sharp activity on continuous EEG in the right frontal/central regions will bolus with midazolam 5 mg IV 1 now. No bowel movements 5 days. KUB yesterday shows no signs of ileus or obstructive type process. On trickle feeds at 10 cc an hour with residuals around 200 cc greenish 02/02: Continue TFs. On high dose versed and propofol for seizure control. Objective Vital Signs Date Time Temp Pulse Resp B/P (MAP) Pulse Ox O2 Delivery O2 Flow Rate FiO2 02/02/18 07:30 100 40 02/02/18 06:00 81 02/02/18 04:00 98.7 14 117/95 (102) 02/01/18 20:00 Mechanical Ventilator Intake and Output 02/02/18 02/02/18 02/02/18 07:59 15:59 23:59 Intake Total 835 ml Output Total 1820.0 ml Balance -985.0 ml Result Diagram: 02/02/18 0819 02/02/18 0330 Other Results Laboratory Tests Test 02/01/18 14:45 Blood Gas Puncture Site ART LINE Blood Gas Patient Temperature 98.6 Blood Gas HCO3 19 mmol/L (22-26) Blood Gas Base Excess -3.8 mmol/L (-2-2) Blood Gas Oxygen Saturation 95 % (90-100) Arterial Blood pH 7.46 (7.380-7.420) Arterial Blood Partial Pressure CO2 28 mmHg (38-42) Arterial Blood Partial Pressure O2 103 mmHg (61-120) Arterial Blood Oxygen Content 11.2 Vol % (12.0-20.0) Arterial Blood Carboxyhemoglobin 1.2 % (0-4) Arterial Blood Methemoglobin 1.7 % (0-2) Blood Gas Hemoglobin 8.2 G/DL (12.0-16.0) Oxygen Delivery Device VENTILATOR Blood Gas Ventilator Setting [facility]/AC14/450/1.2/+5 Blood Gas Inspired Oxygen 40 % Imaging Last Impressions Chest X-Ray 01/28/18 0600 Signed Impressions: Service Date/Time: Sunday, January 28, 2018 03:50 - CONCLUSION: No significant interval change Tommie Solis MD Head CT 01/26/18 1220 Signed Impressions: Service Date/Time: Friday, January 26, 2018 13:48 - CONCLUSION: 1. Slight improvement in acute hemorrhage and edema in the frontal lobe since January 26 exam from earlier today with slightly less mass effect and midline shift. No new hemorrhage. Andrey Pearson MD Head CTA 01/25/18 0000 Signed Impressions: Service Date/Time: Thursday, January 25, 2018 17:59 - CONCLUSION: No acute vascular findings Tommie Solis MD Brain MRI 01/24/18 0000 Signed Impressions: Service Date/Time: December 10:18 - CONCLUSION: Large enhancing mass in the upper left frontal lobe as well as dural enhancement along the base of the skull anterior midline. Vern Boo MD Procedures Left subclavian CVL 01/[address] Baldwin Left radial A-line placed in OR 01/25 Disinhibition Score: 14.00 Aggression Score: 14.00 Lability Score: 14.00 Agitated Behavior Total Score: 14 Objective Remarks GENERAL: 67-year-old female currently orotracheally intubated SKIN: Warm and dry. No rash HEAD: Post bifrontal craniectomy with karolina intact EYES: No scleral icterus. No injection or drainage. NECK: Supple, trachea midline. No JVD. CARDIOVASCULAR: Regular rate and rhythm. sinus RESPIRATORY: equal chest rise. No accessory muscle use. GASTROINTESTINAL: Abdomen soft, non-tender, nondistended. MUSCULOSKELETAL: No significant peripheral edema. Left central line/subclavian is clean dry and intact. Ecchymosis to dorsal aspect left greater than right foot. NEURO EXAM: The patient is sedated and intubated. Heavily sedated Date of Insertion: Jan 25, 2018 Line: Central Venous Catheter Side: Left Location: Subclavian A/P Assessment and Plan Neuro/Psych: Postop day #8 bifrontal craniotomy for resection of left parafalcine meningioma , bilateral cribriform plate -Planum sphenoidale meningioma with use of frameless intraoperative stereotactic navigation for planning of the incision site and bone flap and resection of the parafalcine and frontal skull base neoplasm Status epilepticus CT brain postoperative 01/25 revealed subcutaneous air/subarachnoid hemorrhage left temporal and right parietal region. 1.8 parenchymal hemorrhage left temporal region. Neuro basilar cisterns. Central sulci are effaced. CT brain 01/26 - Stable he is ventricle hemorrhage and edema in the left frontal and left posterior temporal regions. Slight mass effect left to right shift of the third ventricle measuring 3 mm. No new hemorrhage is identified. There may be slightly less and edema in the frontal lobes on the previous study but the change is minimal. Evaluated by psychiatry Dr. Costa and deemed competent Continuous EEG Currently on propofol drip at 50 mcg/kg/min and midazolam drip at 6 mg an hour [place] goal RASS of -2 Daily sedation vacation when okay with Dr. Herring Serial sodiums every 6 hours with serum serum osmolalities every 6 hours Remains on dexamethasone at 4 mg IV every 6 hours for brain mass. Management per neurosurgery Levetiracetam 1000 mg IV 3 times daily Phenobarbital 90 mg IV every 4 hours. Level 4/6 a.m. pending Currently fosphenytoin 100 mg IV every 6 hours. A.m. level 4/6 pending EEG 4/ revealed sharps right frontal region. EEG / revealed right hemispheric sharps in the right frontal central region. EEG 4/: Sharps right frontal/parietal region followed by neurology/Dr. Lockwood. Antiepileptics as above. CV: Hypertension Phenylephrine drip to maintain systolic blood pressure greater than 110 Written for nicardipine drip and labetalol/clonidine as needed to maintain systolic blood pressure less than 130 Previously on nifedipine 30 mg sustained release daily. Resp: Postoperative respiratory failure PRVC 18/11/02/39 Ventilator bundle Albuterol/ipratropium aerosols every 6 hours with albuterol aerosols every 2 hours as needed dyspnea Spontaneous breathing trials when clinically indicated Portable chest x-ray in a.m. 02/02 ABG/6 pending -> alkalosis improving. GI: Constipation Hypoalbuminemia Tube feeding with Glucerna 1.5 goal 10 cc an hour. Nutrition recommended vital high-protein at 45 cc now. We will continue with hyperglycemia Lansoprazole 30 mg daily for GI prophylaxis Docusate sodium 100 mg twice daily/senna liquid 8.8 mg twice daily for bowel regimen Add polyethylene glycol 17 g twice daily and lactulose 30 cc 4 times daily. Mineral oil 30 cc 1. Methylnaltrexone 12 mg subcu 1 now. Glycerin suppository 1 now. Recheck KUB in a.m. 02/02 Check LFTs, amylase and lipase today. Erythromycin 200 mg every 8 hours. Holding metoclopramide in light of seizure activity : Maintain [place] [facility]: Hyperglycemia of critical illness/steroid induced Holding low-dose insulin detemir 15 units twice daily with high residuals. 2unit sliding scale insulin past 24 hours Sliding scale insulin/moderate regimen with Accu-Cheks every 4 hours to maintain euglycemia Novulog Renal: Creatinine currently within normal limits Monitor urine output Accurate I's and O's Heme: Normocytic anemia Monitor CBC daily. Follow trends ID: Monitor for signs and symptoms of infection FEN: Potassium chloride 40 mEq IV 1 now. Recheck in a.m. MSK: Physical therapy evaluate and treat Access -Left subclavian CVL placed 01/25 Prophylaxis -GI -lansoprazole -DVT -SCD/holding pharmacological prophylaxis in light of hemorrhage. Initiate when okay with neurosurgery Overall impression: Patient remains critically ill requiring seizure control and mechanical ventilation. Unstable neurological status. Critical Care 37 mins Hernandez Lawson MD Feb 02, 2018 10:33
--- NOTE | 2018-02-02 13:43 | HHI.PR ---
Subjective Remarks no sz clinically overnoc Objective Vital Signs Date Time Temp Pulse Resp B/P (MAP) Pulse Ox O2 Delivery O2 Flow Rate FiO2 02/02/18 12:14 40 02/02/18 12:00 87 02/02/18 12:00 99.1 87 14 131/63 (85) 99 02/02/18 11:59 99 40 02/02/18 10:00 87 02/02/18 08:00 88 02/02/18 08:00 99.8 88 14 124/75 (91) 97 02/02/18 07:30 100 40 02/02/18 07:00 98 Mechanical Ventilator 40 02/02/18 06:00 81 02/02/18 04:00 40 02/02/18 04:00 98.7 84 14 117/95 (102) 98 02/02/18 04:00 84 02/02/18 03:35 100 40 02/02/18 02:00 83 02/02/18 00:16 100 40 02/02/18 00:00 83 02/02/18 00:00 99.2 81 14 121/58 (79) 97 02/02/18 00:00 40 02/01/18 22:00 86 02/01/18 20:00 99.0 86 14 136/65 (88) 98 02/01/18 20:00 98 Mechanical Ventilator 40 02/01/18 20:00 40 02/01/18 20:00 84 02/01/18 19:25 98 40 02/01/18 18:00 89 02/01/18 16:00 40 02/01/18 16:00 89 02/01/18 16:00 99.5 89 14 136/65 (88) 98 02/01/18 15:39 98 40 02/01/18 14:00 87 I/O 02/01/18 02/01/18 02/01/18 02/02/18 02/02/18 02/02/18 07:00 15:00 23:00 07:00 15:00 23:00 Intake Total 444 ml 100 ml 340 ml 835 ml Output Total 1235.0 ml 1760.0 ml 1820.0 ml 50.0 ml Balance -791.0 ml 100 ml -1420.0 ml -985.0 ml -50.0 ml IV Total 350 ml 100 ml 200 ml 602 ml Tube Feeding 34 ml 100 ml 93 ml Tube Irrigant 60 ml 40 ml 140 ml Output Urine Total 1200 ml 1550 ml 1700 ml Tube Feeding Residual Discard 10.0 ml 210.0 ml 120.0 ml 50.0 ml Drainage Total 25 ml # Bowel Movements 0 1 0 Result Diagram: 02/02/18 0819 02/02/18 0330 Objective Remarks pupil = r eye deviated down a little c/t left fullsy sedated flaccid and unresponsive Assessment and Plan Assessment and Plan imp pbarb 20 dil 1.06 but higher free level due to alb 1.6 ct bilat large cva comfort measures could be considered eeg yest looked a little better Smith Rodrigues MD Feb 02, 2018 13:43
[2018-02-02] MEDS: ACETAMINOPHEN 650 MG/20.3 ML UDC PO PRN (18:20)
[2018-02-03] VITALS (54 sets, daily range): BP systolic 82–155; BP diastolic 47–81; PULSE 63–97; RESP 14; TEMP 98.7–103.1; O2SAT 95–100
[2018-02-03] MEDS: INSULIN ASPART SUPPLEMENTAL SCALE SQ SCH ×6 (00:12→20:00)
[2018-02-03] MEDS: ACETAMINOPHEN 650 MG/20.3 ML UDC PO PRN ×2 (00:12→14:38)
[2018-02-03] MEDS: FOSPHENYTOIN INJ 100 MGPE in SODIUM CHLORIDE 0.9% INJ 50 ML IV SCH ×4 (00:12→20:23)
[2018-02-03] MEDS ORDERED: Vancomycin Consult Pharmacy 1 EA OTHER SCH (03:15)
[2018-02-03] MEDS ORDERED: SODIUM CHLOR 0.9% 1000 ML INJ 1,000 ML IV ONE (03:15)
--- NOTE | 2018-02-03 03:50 | RADRPT ---
EXAM DATE/TIME: 02/03/2018 03:29 [place] COMPARISON: CHEST SINGLE AP, February 02, 2018, 2:51. INDICATIONS : Evaluate for pneumonia. MEDICAL HISTORY : Dementia. Brain mass SURGICAL HISTORY : Craniotomy ENCOUNTER: Subsequent ACUITY: 1 day PAIN SCORE: Non-responsive. LOCATION: Bilateral chest FINDINGS: Single AP view of the chest. Endotracheal tube, nasogastric tube, and left subclavian central venous catheter remain in place. Persistent left lower lobe consolidation versus atelectasis and small left pleural effusion. No significant interval change. CONCLUSION: No significant interval change. Persistent left lower lobe consolidation versus atelectasis and small pleural effusion. Parminder Gonzalez MD on February 03, 2018 at 3:45 Board Certified Radiologist. This report was verified electronically.
[2018-02-03] MEDS: PIPERACIL-TAZO 4.5 GM PREMIX 100 ML IV SCH ×4 (03:52→20:23)
[2018-02-03] MEDS: PHENobarbital INJ 90 MG in SODIUM CHLORIDE 0.9% INJ 50 ML IV SCH ×7 (03:52→20:48)
[2018-02-03] MEDS ORDERED: VANCOMYCIN INJ 2,000 MG in SODIUM CHLORID 0.9% 500 ML INJ 500 ML IV ONE (04:00)
[2018-02-03 04:39] LABS: AMORPHOUS SEDIMENT, URINE RARE; BACTERIA, URINE FEW /hpf; BILIRUBIN, URINE NEG (NEG); BLOOD, URINE NEG (NEG); GLUCOSE,URINE NEG (NEG); KETONE, URINE NEG (NEG); MUCUS URINE FEW /lpf (OCC); NITRITE,URINE NEG (NEG); PH, URINE 5.5 (5.0-8.5); SQUAMOUS EPITHELIAL CELL URINE 1 /hpf (0-5); URINE COLOR YELLOW (YELLW/STRAW); URINE LEUKOCYTE ESTERASE TRACE (NEG)
[2018-02-03] MEDS: ARTIFICIAL TEARS OPTH SOLN 15 ML BTL EACH EYE SCH ×3 (06:00→20:25)
[2018-02-03] MEDS: levETIRAcetam INJ 100 ML IV SCH ×3 (06:02→20:24)
[2018-02-03] MEDS: DEXAMETHASONE SOD PHOS 4 MG/ML VIAL IV PUSH SCH ×3 (06:02→16:43)
[2018-02-03] MEDS: PROPOFOL 1000 MG/100 ML INJ 100 ML IV PRN ×3 (06:03→20:23)
[2018-02-03 06:07] LABS: BICARBONATE 19.7 MEQ/L (21.0-32.0); CALCIUM 7.1 MG/DL (8.5-10.1); CREATININE 0.46 MG/DL (0.50-1.00); PHENYTOIN (DILANTIN) 9.6 MCG/ML (10.0-20.0)
[2018-02-03 06:26] LABS: TOTAL PROTEIN 5.4 GM/DL (6.4-8.2)
[2018-02-03] MEDS: LACTULOSE SYRUP 20 GM/30 ML CUP PO SCH ×4 (08:15→20:23)
[2018-02-03] MEDS: POLYETHYLENE GLYCOL 17 GM PKG NG SCH ×2 (08:15→20:23)
[2018-02-03] MEDS: DOCUSATE SODIUM 100 MG/10 ML UDC PO SCH ×2 (08:15→20:23)
[2018-02-03] MEDS: SENNOSIDES SYRUP 8.8 MG/5 ML CUP PO SCH ×2 (08:15→20:24)
[2018-02-03] MEDS: LANSOPRAZOLE SOLUTAB 30 MG TAB NG SCH (08:16)
[2018-02-03] MEDS: ERYTHROMYCIN ETHYLSUCCINATE 200 MG/5 ML SUSP 100 ML BOTTLE PO SCH ×2 (08:16→16:43)
[2018-02-03] MEDS: CHLORHEXIDINE 0.12% (ORAL KIT) 15 ML CUP MT SCH ×2 (08:17→20:24)
[2018-02-03] MEDS: NYSTATIN 100,000 U/GM PWD 15 GM BTL TOPICAL SCH ×2 (08:18→20:25)
--- NOTE | 2018-02-03 08:31 | MG ---
cc: Smith Rodrigues MD [facility]: [phone] This is a repeat EEG for a patient who has had several EEGs this week. There is still some right frontal phase reversing sharp waves seen, especially over the F4 and F8 electrode and some phase reversing theta and delta waves seen there also. Some beta rhythms noted over there, which looks like probably breach rhythm. These discharges are much lower amplitude than they were prior. Photic stimulation was performed without significant posterior driving. IMPRESSION: Continued improved recording, still a focal abnormality in the right frontal region with increased risk for seizures, although no prolonged seizure was noted. Smith Rodrigues MD DJM/TL , 08:07 AM , 08:30 AM
[2018-02-03 08:44] LABS: MEAN CELL VOLUME 91.9 FL (80.0-100.0); MEAN CORPUSCULAR HEMOGLOBIN 31.2 PG (27.0-34.0); MEAN CORPUSCULAR HGB CONC 33.9 % (32.0-36.0); MEAN PLATELET VOLUME 7.8 FL (7.0-11.0); PLATELET COUNT 139 TH/MM3 (150-450); RED BLOOD COUNT 2.17 MIL/MM3 (4.00-5.30); RED CELL DISTRIBUTION WIDTH 14.9 % (11.6-17.2); WHITE BLOOD COUNT 9.8 TH/MM3 (4.0-11.0)
--- NOTE | 2018-02-03 09:20 | HHI.CCPN ---
Subjective Remarks/Hospital Course 67-year-old female patient with history of a previous brain mass for which she underwent evaluation. She was after court order because she became aggressive and hostile at home. The patient lives with her mother, who has Alzheimer disease. The CT of the head performed in the emergency department showed an Extra-axial left frontal mass again seen with left to right midline shift, likely related to meningioma. She has undergone another tumor resection by Dr. Herring today. The patient remains postprocedure intubated, also the repeated postoperative CAT scan of the head show significant amount of brain edema. 01/26: FiO2 remains at 75%. Small left pleural effusion/atelectasis noted. Remains on 3% at [address] brain revealed stable cerebral edema with stable hemorrhage. Sedated on propofol drip at 40 mcg/kg/min 01/27: FiO2 down to 50%. Withdraws to pain bilateral upper and lower extremities. Currently on propofol drip at 45 mcg/kg/min. Tolerating tube feeds. 01/28: FiO2 down to 40%. Opens eyes to voice but currently not following commands. No tremor activity noted. Repeat EEG performed but results are pending. Currently levetiracetam and 1000 mg IV 3 times daily with phenytoin level at therapeutic levels 01/29: T-max 99. Currently afebrile. Noted right hemispheric slowing/sharps in the right central/frontal region. Currently levetiracetam thousand milligrams twice daily and fosphenytoin 100 mg 3 times daily. Tolerating CPAP. Neurologically opens eyes to voice withdraws bilateral lower extremities. Intermittent tremors upper extremity 01/30: no neuro exam changes noted. nsgy noticed some facial twitching and repeat EEG ordered, but no change in baseline neuro exam. 01/31: ongoing seizure focus. phenobarb added by neurology. neurologic exam stable , but remains poor. Subjective 6: Resting comfortably in bed in no acute distress. Afebrile. Continues to have focal sharp activity on continuous EEG in the right frontal/central regions will bolus with midazolam 5 mg IV 1 now. No bowel movements 5 days. KUB yesterday shows no signs of ileus or obstructive type process. On trickle feeds at 10 cc an hour with residuals around 200 cc greenish 02/02: Continue TFs. On high dose versed and propofol for seizure control. 02/03: Fevers persists. Remove Hills and CVL. Culture and start broad abx coverage. Residual gastric 300 mls with trickle feeds. Hold for now, start motility med. Objective Vital Signs Date Time Temp Pulse Resp B/P (MAP) Pulse Ox O2 Delivery O2 Flow Rate FiO2 02/03/18 07:40 97 40 02/03/18 06:12 100.0 02/03/18 06:00 85 02/03/18 04:00 14 96/51 (66) Arterial Line 02/02/18 20:00 Mechanical Ventilator Intake and Output 02/03/18 02/03/18 02/04/18 08:00 16:00 00:00 Intake Total 983 ml Output Total 1520.0 ml Balance -537.0 ml Result Diagram: 02/02/18 0819 02/03/18 0500 Imaging Last Impressions Chest X-Ray 01/28/18 0600 Signed Impressions: Service Date/Time: Sunday, January 28, 2018 03:50 - CONCLUSION: No significant interval change Tommie Solis MD Head CT 01/26/18 1220 Signed Impressions: Service Date/Time: Friday, January 26, 2018 13:48 - CONCLUSION: 1. Slight improvement in acute hemorrhage and edema in the frontal lobe since January 26 exam from earlier today with slightly less mass effect and midline shift. No new hemorrhage. Andrey Pearson MD Head CTA 01/25/18 0000 Signed Impressions: Service Date/Time: Thursday, January 25, 2018 17:59 - CONCLUSION: No acute vascular findings Tommie Solis MD Brain MRI 01/24/18 0000 Signed Impressions: Service Date/Time: December 10:18 - CONCLUSION: Large enhancing mass in the upper left frontal lobe as well as dural enhancement along the base of the skull anterior midline. Vern Boo MD Procedures Left subclavian CVL 01/[address] Baldwin Left radial A-line placed in OR 01/25 Disinhibition Score: 14.00 Aggression Score: 14.00 Lability Score: 14.00 Agitated Behavior Total Score: 14 Objective Remarks GENERAL: 67-year-old female currently orotracheally intubated SKIN: Warm and dry. No rash HEAD: Post bifrontal craniectomy with karolina intact, dry, clean. EYES: No scleral icterus. No injection or drainage. NECK: Supple, trachea midline. No JVD. CARDIOVASCULAR: Regular rate and rhythm. sinus. RESPIRATORY: equal chest rise. No accessory muscle use. GASTROINTESTINAL: Abdomen soft, non-tender, nondistended. MUSCULOSKELETAL: No significant peripheral edema. Left central line/subclavian is clean dry and intact. Ecchymosis to dorsal aspect left greater than right foot. NEURO EXAM: Intubated. Heavily sedated Date of Insertion: Jan 25, 2018 Line: Central Venous Catheter Side: Left Location: Subclavian A/P Assessment and Plan Neuro/Psych: Postop day #8 bifrontal craniotomy for resection of left parafalcine meningioma , bilateral cribriform plate -Planum sphenoidale meningioma with use of frameless intraoperative stereotactic navigation for planning of the incision site and bone flap and resection of the parafalcine and frontal skull base neoplasm Status epilepticus CT brain postoperative 01/25 revealed subcutaneous air/subarachnoid hemorrhage left temporal and right parietal region. 1.8 parenchymal hemorrhage left temporal region. Neuro basilar cisterns. Central sulci are effaced. CT brain 01/26 - Stable he is ventricle hemorrhage and edema in the left frontal and left posterior temporal regions. Slight mass effect left to right shift of the third ventricle measuring 3 mm. No new hemorrhage is identified. There may be slightly less and edema in the frontal lobes on the previous study but the change is minimal. Evaluated by psychiatry Dr. Costa and deemed competent Continuous EEG Currently on propofol drip at 50 mcg/kg/min and midazolam drip at 6 mg an hour [place] goal RASS of -2 Daily sedation vacation when okay with Dr. Herring Serial sodiums every 6 hours with serum serum osmolalities every 6 hours Remains on dexamethasone at 4 mg IV every 6 hours for brain mass. Management per neurosurgery Levetiracetam 1000 mg IV 3 times daily Phenobarbital 90 mg IV every 4 hours. Level 4/6 a.m. pending Currently fosphenytoin 100 mg IV every 6 hours. A.m. level 4/6 pending EEG 4/1 revealed sharps right frontal region. EEG 4/3 revealed right hemispheric sharps in the right frontal central region. EEG 4/5: Sharps right frontal/parietal region followed by neurology/Dr. Lockwood. Antiepileptics as above. CV: Hypertension Phenylephrine drip to maintain systolic blood pressure greater than 110 Written for nicardipine drip and labetalol/clonidine as needed to maintain systolic blood pressure less than 130 Previously on nifedipine 30 mg sustained release daily. Resp: Postoperative respiratory failure [facility] 18/11/02/39 Ventilator bundle Albuterol/ipratropium aerosols every 6 hours with albuterol aerosols every 2 hours as needed dyspnea Spontaneous breathing trials when clinically indicated Portable chest x-ray in a.m. 02/02 ABG/6 pending -> alkalosis improving. GI: Constipation Hypoalbuminemia Tube feeding with Glucerna 1.5 goal 10 cc an hour. Nutrition recommended vital high-protein at 45 cc now. We will continue with hyperglycemia Lansoprazole 30 mg daily for GI prophylaxis Docusate sodium 100 mg twice daily/senna liquid 8.8 mg twice daily for bowel regimen Add polyethylene glycol 17 g twice daily and lactulose 30 cc 4 times daily. Mineral oil 30 cc 1. Methylnaltrexone 12 mg subcu 1 now. Glycerin suppository 1 now. Recheck KUB in a.m. 02/02 Check LFTs, amylase and lipase today. Erythromycin 200 mg every 8 hours. Holding metoclopramide in light of seizure activity Hold TFs due to high residual 02/03 : D/C [place] Endo: Hyperglycemia of critical illness/steroid induced Holding low-dose insulin detemir 15 units twice daily with high residuals. 2unit sliding scale insulin past 24 hours Sliding scale insulin/moderate regimen with Accu-Cheks every 4 hours to maintain euglycemia Novulog Renal: Creatinine currently within normal limits Monitor urine output Accurate I's and O's Heme: Normocytic anemia Monitor CBC daily. Follow trends ID: Monitor for signs and symptoms of infection FEN: Potassium chloride 40 mEq IV 1 now. Recheck in a.m. MSK: Physical therapy evaluate and treat Access -Left subclavian CVL placed 01/25 -> d/c Prophylaxis -GI -lansoprazole -DVT -SCD/holding pharmacological prophylaxis in light of hemorrhage. Initiate when okay with neurosurgery Overall impression: Patient remains critically ill requiring seizure control and mechanical ventilation. Unstable neurological status. Unable to wean from ventilator. Critical Care 39 mins Hernandez Lawson MD Feb 03, 2018 09:20
--- NOTE | 2018-02-03 09:21 | HHI.NSPN ---
(Tate Cisneros) History Chief Complaint: Unable to obtain due to patient's clinical condition. (Tate Cisneros) Interval History 01/18: This is a 67-year-old female patient with history of a previous brain mass for which she underwent evaluation. She was brought today to the emergency room after court order because she became aggressive and hostile at home, the patient lives with her mother, who has Alzheimer disease. She has been fighting with her sister and now she is being brought for medical evaluation and psychiatric evaluation. The patient reports that she was previously seen because of a brain tumor and she still has not decided what to do with it. 01/19: Patient history of brain tumor. 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 01/23: The patient is in the bathroom when seen. She is assisted up from the commode and uses a walker to ambulate back to her bed where she sits on the edge of it. She denies any headache or dizziness. She does state that her vision is off but she is not able to describe it any further. She has pain to the right elbow from a fall, otherwise she has no pain to the extremities. She denies any numbness or tingling to the extremities. She does have some difficulty finding the correct word she wants to use. No sensorimotor deficits are noted. 01/24: When seen this afternoon the patient is awake and alert talking with the Physics Faculty Member. She does endorse a slight headache this morning but denies any dizziness, visual problems or nausea. She does have some right elbow and left foot pain. She also says that she hurt both knees. Otherwise she has no pain into the extremities and denies any numbness or tingling to them. There is no change in her neuro exam from yesterday. 01/25: The patient went to the operating room for a bifrontal craniotomy for resection of a left parafalcine meningioma and a bilateral cribriform plate- planum sphenoidale meningioma. Post-operatively she was transferred to [facility] for further care and monitoring. 01/26: This morning the patient remains intubated and mechanically ventilated. She is sedated with propofol. A nicardipine drip is infusing for blood pressure control. She did withdraw the right hand and both feet to noxious stimulation upon examination. 01/27: The Fire Crew Worker reported that the patient was having a subclinical seizure seen on the EEG this morning. When the patient was seen the plate hanger had just completed the EEG and said the patient was having seizures to the right frontal. After being evaluated the patient was noted to have twitching of the first and second digits of the right hand briefly. She remains obtunded and is sedated with propofol. She is also still intubated and mechanically ventilated. She did move both feet to noxious stimulation. 01/28: No seizure activity noted when seen this morning. She continues to be obtunded but maximally sedated with propofol. She is still intubated and mechanically ventilated. She moved only the lower extremities slightly to local noxious stimulation and had partial left eye opening with central noxious stimulation. She was evaluated by Neurology yesterday who adjusted her antiepileptic medication. Another EEG is to be done this morning. 01/29: Repeat EEG done yesterday with right hemisphere slowing. When seen she is lethargic. She is still intubated and mechanically ventilated. The propofol is infusing for sedation. With sedation held she did partially open her eyes and responded to noxious stimulation to the lower extremities only. There is no significant change in her exam. 01/30: The patient's sedation and fentanyl have been held for a while prior to her being seen. She remains obtunded. She continues to be intubated and mechanically ventilated. She had no eye opening to stimulation. She did have some bilateral foot flexion with extension of the right knee to noxious stimulation. Her pupils did appear sluggish. Bilateral nystagmus is noted. 01/31: When seen this morning the patient is obtunded and having a continuous EEG. Nursing did report that the patient was started on phenobarbital yesterday and her fosphenytoin was adjusted. She is also on levetiracetam as well for the seizures. Her propofol is infusing at the maximum dose. She had slight withdrawal of the lower extremities to noxious stimulation upon examination which is the same as what Nursing said the patient did for her. No nystagmus noted. 04/06: This morning the patient is still obtunded. She does have propofol and midazolam infusing for sedation. She continues to be intubated and mechanically ventilated. With her sedation held for several minutes she has slight withdrawal /flexion of the lower extremities. No response with the upper extremities. EEG not attached to patient but Nursing does say she is to be reattached again for continuous EEG monitoring. 02/02: Pt sedated on Diprivan and Versed. She does not open her eyes or follow commands. 02/03: Patient is sedated on Diprivan and Versed. She does not open her eyes or follow commands. Pupils are 3 mm bilaterally. She remains intubated. (Tate Cisneros) System Review Comments Not able to obtain given clinical condition. (Tate Cisneros) Exam Results Vital Signs Date Time Temp Pulse Resp B/P (MAP) Pulse Ox O2 Delivery O2 Flow Rate FiO2 02/03/18 07:40 97 40 02/03/18 06:12 100.0 02/03/18 06:00 85 02/03/18 04:00 14 96/51 (66) Arterial Line 02/02/18 20:00 Mechanical Ventilator Intake and Output 02/03/18 02/03/18 02/03/18 07:59 15:59 23:59 Intake Total 983 ml Output Total 1520.0 ml Balance -537.0 ml (Tate Cisneros) Physical Examination General: Patient sedated and intubated in the ICU she spiked fevers early this morning. Eyes: Pupils 3mm bilaterally sluggish reaction right more than left. Resp: Intubated. Pressure controlled. Rate 14. Peep 5. FiO2 40% Peep 5. Heart: NSR no murmurs. Abd: Distended with diminished bowel sounds Skin: coronal incision clean and dry. Muscle: Not following for muscle testing. Sedated with Diprivan and Versed. Neuro: Pt sedated on Diprivan and versed. She does not open her eyes. Pupils 3mm bilaterally sluggish reaction right more than left. Not following commands. (Tate Cisneros) Lab, Micro, Other Results Last Impressions Chest X-Ray 02/03/18 0000 Signed Impressions: Service Date/Time: Saturday, February 03, 2018 03:29 - CONCLUSION: No significant interval change. Persistent left lower lobe consolidation versus atelectasis and small pleural effusion. Parminder Gonzalez MD Abdomen X-Ray 02/02/18 0600 Signed Impressions: Service Date/Time: Friday, February 02, 2018 02:55 - CONCLUSION: Nonspecific bowel gas pattern. Parminder Gonzalez MD Head CT 02/01/18 0800 Signed Impressions: Service Date/Time: Thursday, February 01, 2018 13:16 - CONCLUSION: Multifocal areas of increased hypodensity with mass effect including the surgical site left frontal region, and bilateral temporal/parietal/ occipital regions. The findings suggest multifocal infarctions. Interval development of 6 mm midline shift towards the right and effacement of the left occipital horn and left frontal horn. Otis Huff MD Foot X-Ray 01/29/18 0000 Signed Impressions: Service Date/Time: Monday, January 29, 2018 20:36 - CONCLUSION: 1. No acute findings. Andrey Pearson MD Head CTA 01/25/18 0000 Signed Impressions: Service Date/Time: Thursday, January 25, 2018 17:59 - CONCLUSION: No acute vascular findings Tommie Solis MD Brain MRI 01/24/18 0000 Signed Impressions: Service Date/Time: December 10:18 - CONCLUSION: Large enhancing mass in the upper left frontal lobe as well as dural enhancement along the base of the skull anterior midline. Vern Boo MD Laboratory Tests Test 02/03/18 03:50 02/03/18 04:00 02/03/18 05:00 02/03/18 07:38 Lactic Acid Level 1.9 mmol/L Urine Color YELLOW Urine Turbidity HAZY Urine pH 5.5 Urine Specific Zimmerman 1.036 Urine Protein 30 mg/dL Urine Glucose (UA) NEG mg/dL Urine Ketones NEG mg/dL Urine Occult Blood NEG Urine Nitrite NEG Urine Bilirubin NEG Urine Urobilinogen 2.0 MG/DL Urine Leukocyte Esterase TRACE Urine RBC 10 /hpf Urine WBC 15 /hpf Urine Squamous Epithelial Cells 1 /hpf Urine Amorphous Sediment RARE Urine Bacteria FEW /hpf Urine Mucus FEW /lpf Microscopic Urinalysis Comment CATH-CULTURE IND Blood Urea Nitrogen 8 MG/DL Creatinine 0.46 MG/DL Random Glucose 119 MG/DL Total Protein 5.4 GM/DL Calcium Level 7.1 MG/DL Sodium Level 140 MEQ/L Potassium Level 3.3 MEQ/L Chloride Level 109 MEQ/L Carbon Dioxide Level 19.7 MEQ/L Anion Gap 11 MEQ/L Estimat Glomerular Filtration Rate 135 ML/MIN Protein Corrected Calcium 8.0 MG/DL Phenytoin (Dilantin) Level 9.6 MCG/ML Phenobarbital Level 23.1 MCG/ML (Tate Cisneros) Medical Decision Making Impression and Plan Impression: 1. Large frontal neoplasm noted on CT scan and previous MRI imaging. 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 Postoperative Diagnosis: (1) Meningioma, multiple (2) Parasagittal meningioma 1. Recurrent left parafalcine meningioma 2. Bilateral cribriform plate-planum sphenoidale meningioma Seizures w/origin in the right frontal lobe CT brain demonstrates stable left frontal & posterior temporal region ventricular haemorrhage & edema w/slight mass effect [id number] shift of third ventricle measuring 3 mm. No new haemorrhage identified. EEG w/right frontocentral periodic lateralized epileptiform discharge -like activity c/w seizure focus & focal abnormality in the right frontocentral head region. DIANN drain with 45 mL for the past 24 hrs as of shift change this morning. () s/p: Bifrontal craniotomy for resection 1. Left parafalcine meningioma 2. Bilateral cribriform plate -Planum sphenoidale meningioma 3. Use of frameless intraoperative stereotactic navigation for planning of the incision site and bone flap and resection of the parafalcine and frontal skull base neoplasm. Plan: Continue to monitor neuro exam Continue with critical care. Continue with seizure control per neurology. (Tate Cisneros) Attending Statement The exam, history, and the medical decision-making described in the above note were completed with the assistance of the mid-level provider. I reviewed and agree with the findings presented. I attest that I had a [id number] encounter with the patient on the same day, and personally performed and documented my assessment and findings in the medical record. (Michael Dunbar MD) Tate Csineros Feb 03, 2018 09:21 Michael Dunbar MD Feb 03, 2018 14:00
[2018-02-03 09:28] LABS: HEMATOCRIT 19.9 % (35.0-46.0); HEMOGLOBIN 6.8 GM/DL (11.6-15.3)
--- NOTE | 2018-02-03 11:58 | HHI.PR ---
Subjective Remarks no sz clinically overnoc on dip Objective Vital Signs Date Time Temp Pulse Resp B/P (MAP) Pulse Ox O2 Delivery O2 Flow Rate FiO2 02/03/18 10:00 85 02/03/18 08:00 40 02/03/18 08:00 98.9 84 14 99/55 (70) 97 02/03/18 08:00 97 Mechanical Ventilator 40 02/03/18 08:00 85 02/03/18 07:40 97 40 02/03/18 06:12 100.0 02/03/18 06:00 85 02/03/18 04:00 101.0 81 14 96/51 (66) 98 Arterial Line 02/03/18 04:00 99 40 02/03/18 04:00 40 02/03/18 04:00 81 02/03/18 03:00 103.0 91 14 83/52 (62) 98 83/52 (62) 02/03/18 02:00 91 02/03/18 00:50 99 40 02/03/18 00:00 91 02/03/18 00:00 40 02/03/18 00:00 102.3 91 14 106/52 (70) 98 02/02/18 22:00 87 02/02/18 20:00 80 02/02/18 20:00 97 Mechanical Ventilator 40 02/02/18 20:00 99.6 80 14 112/58 (76) 97 02/02/18 20:00 40 02/02/18 19:40 96 40 02/02/18 18:42 100.0 02/02/18 18:11 85 02/02/18 16:52 97 40 02/02/18 16:00 40 02/02/18 16:00 101.7 91 14 117/95 (102) 98 02/02/18 16:00 87 02/02/18 14:00 87 02/02/18 12:14 40 02/02/18 12:00 87 02/02/18 12:00 99.1 87 14 131/63 (85) 99 02/02/18 11:59 99 40 I/O 02/02/18 02/02/18 02/02/18 02/03/18 02/03/18 02/03/18 06:59 14:59 22:59 06:59 14:59 22:59 Intake Total 835 ml 100 ml 1295 ml 983 ml Output Total 1820.0 ml 50.0 ml 1610.0 ml 1520.0 ml Balance -985.0 ml 50.0 ml -315.0 ml -537.0 ml IV Total 602 ml 100 ml 1150 ml 700 ml Tube Feeding 93 ml 95 ml 83 ml Tube Irrigant 140 ml 50 ml 200 ml Output Urine Total 1700 ml 1450 ml 900 ml Gastric Drainage Total 320 ml Tube Feeding Residual Discard 120.0 ml 50.0 ml 160.0 ml 300.0 ml # Bowel Movements 0 0 2 Result Diagram: 02/03/18 0738 02/03/18 0500 Objective Remarks full sedated eye midline Assessment and Plan Assessment and Plan imp pbarb 20 dil 1.06 but higher free level due to alb 1.6 ct bilat large cva comfort measures could be considered eeg yest looked a little better 02/03/18 pbarb 23 dil free 20 regular 9.6 no more sz lower dip to 25 from 50 i dw nurse eeg continues to look better than before but r frontal focus now dr rivas in am Smith Rodrigues MD Feb 03, 2018 11:58
[2018-02-03 14:00] LABS: LACTIC ACID SEPSIS PROTOCOL 3.3 mmol/L (0.4-2.0)
[2018-02-03] MEDS: PHENYLEPHRINE INJ 40 MG in SODIUM CHLORID 0.9% 500 ML INJ 496 ML IV PRN ×2 (15:01→22:00)
[2018-02-03] MEDS: VANCOMYCIN 1,500 MG/NS 500 ML IV SCH ×2 (16:43)
[2018-02-03] MEDS: POTASSIUM CHLOR 20 MEQ PREMIX 100 ML IV PRN ×2 (21:48→23:06)
[2018-02-04] VITALS (18 sets, daily range): BP systolic 96–141; BP diastolic 57–69; PULSE 62–75; RESP 14–16; TEMP 98.4–98.8; O2SAT 95–100
[2018-02-04] MEDS: DEXAMETHASONE SOD PHOS 4 MG/ML VIAL IV PUSH SCH ×4 (00:35→18:00)
[2018-02-04] MEDS: ERYTHROMYCIN ETHYLSUCCINATE 200 MG/5 ML SUSP 100 ML BOTTLE PO SCH ×4 (00:35→23:31)
[2018-02-04] MEDS: PHENobarbital INJ 90 MG in SODIUM CHLORIDE 0.9% INJ 50 ML IV SCH ×7 (00:35→23:30)
[2018-02-04] MEDS: FOSPHENYTOIN INJ 100 MGPE in SODIUM CHLORIDE 0.9% INJ 50 ML IV SCH ×4 (00:36→20:44)
[2018-02-04] MEDS: PIPERACIL-TAZO 4.5 GM PREMIX 100 ML IV SCH ×4 (03:43→20:44)
[2018-02-04] MEDS: INSULIN ASPART SUPPLEMENTAL SCALE SQ SCH ×7 (04:00→23:56)
[2018-02-04] MEDS: ARTIFICIAL TEARS OPTH SOLN 15 ML BTL EACH EYE SCH ×3 (06:00→22:00)
[2018-02-04] MEDS: levETIRAcetam INJ 100 ML IV SCH ×3 (06:00→22:27)
[2018-02-04] MEDS: VANCOMYCIN 1,500 MG/NS 500 ML IV SCH ×4 (06:40→17:00)
[2018-02-04 06:48] LABS: BICARBONATE 19.3 MEQ/L (21.0-32.0); CALCIUM 7.7 MG/DL (8.5-10.1); CREATININE 0.5 MG/DL (0.50-1.00)
[2018-02-04 07:12] LABS: HEMATOCRIT 30.9 % (35.0-46.0); HEMOGLOBIN 10.8 GM/DL (11.6-15.3); MEAN CELL VOLUME 88.9 FL (80.0-100.0); MEAN CORPUSCULAR HGB CONC 34.9 % (32.0-36.0); MEAN PLATELET VOLUME 9.2 FL (7.0-11.0); PLATELET COUNT 122 TH/MM3 (150-450); RED BLOOD COUNT 3.47 MIL/MM3 (4.00-5.30); RED CELL DISTRIBUTION WIDTH 14.5 % (11.6-17.2); WHITE BLOOD COUNT 10.3 TH/MM3 (4.0-11.0)
[2018-02-04] MEDS: CHLORHEXIDINE 0.12% (ORAL KIT) 15 ML CUP MT SCH ×2 (08:00→20:00)
[2018-02-04] MEDS: LANSOPRAZOLE SOLUTAB 30 MG TAB NG SCH (09:00)
[2018-02-04] MEDS: POLYETHYLENE GLYCOL 17 GM PKG NG SCH ×2 (09:00→21:00)
[2018-02-04] MEDS: LACTULOSE SYRUP 20 GM/30 ML CUP PO SCH ×4 (09:00→21:00)
[2018-02-04] MEDS: NYSTATIN 100,000 U/GM PWD 15 GM BTL TOPICAL SCH ×2 (09:00→21:00)
[2018-02-04] MEDS: DOCUSATE SODIUM 100 MG/10 ML UDC PO SCH ×2 (09:00→21:00)
[2018-02-04] MEDS: SENNOSIDES SYRUP 8.8 MG/5 ML CUP PO SCH ×2 (09:00→21:00)
--- NOTE | 2018-02-04 09:37 | HHI.NSPN ---
(Js Nj) History Chief Complaint: Unable to obtain due to patient's clinical condition. (ClemJs) Interval History 01/18: This is a 67-year-old female patient with history of a previous brain mass for which she underwent evaluation. She was brought today to the emergency room after court order because she became aggressive and hostile at home, the patient lives with her mother, who has Alzheimer disease. She has been fighting with her sister and now she is being brought for medical evaluation and psychiatric evaluation. The patient reports that she was previously seen because of a brain tumor and she still has not decided what to do with it. 01/19: Patient history of brain tumor. 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 01/23: The patient is in the bathroom when seen. She is assisted up from the commode and uses a walker to ambulate back to her bed where she sits on the edge of it. She denies any headache or dizziness. She does state that her vision is off but she is not able to describe it any further. She has pain to the right elbow from a fall, otherwise she has no pain to the extremities. She denies any numbness or tingling to the extremities. She does have some difficulty finding the correct word she wants to use. No sensorimotor deficits are noted. 01/24: When seen this afternoon the patient is awake and alert talking with the Locomotive Boilermaker. She does endorse a slight headache this morning but denies any dizziness, visual problems or nausea. She does have some right elbow and left foot pain. She also says that she hurt both knees. Otherwise she has no pain into the extremities and denies any numbness or tingling to them. There is no change in her neuro exam from yesterday. 01/25: The patient went to the operating room for a bifrontal craniotomy for resection of a left parafalcine meningioma and a bilateral cribriform plate- planum sphenoidale meningioma. Post-operatively she was transferred to [facility] for further care and monitoring. 01/26: This morning the patient remains intubated and mechanically ventilated. She is sedated with propofol. A nicardipine drip is infusing for blood pressure control. She did withdraw the right hand and both feet to noxious stimulation upon examination. 01/27: The Appellate Law Clerk reported that the patient was having a subclinical seizure seen on the EEG this morning. When the patient was seen the fur drummer had just completed the EEG and said the patient was having seizures to the right frontal. After being evaluated the patient was noted to have twitching of the first and second digits of the right hand briefly. She remains obtunded and is sedated with propofol. She is also still intubated and mechanically ventilated. She did move both feet to noxious stimulation. 01/28: No seizure activity noted when seen this morning. She continues to be obtunded but maximally sedated with propofol. She is still intubated and mechanically ventilated. She moved only the lower extremities slightly to local noxious stimulation and had partial left eye opening with central noxious stimulation. She was evaluated by Neurology yesterday who adjusted her antiepileptic medication. Another EEG is to be done this morning. 01/29: Repeat EEG done yesterday with right hemisphere slowing. When seen she is lethargic. She is still intubated and mechanically ventilated. The propofol is infusing for sedation. With sedation held she did partially open her eyes and responded to noxious stimulation to the lower extremities only. There is no significant change in her exam. 01/30: The patient's sedation and fentanyl have been held for a while prior to her being seen. She remains obtunded. She continues to be intubated and mechanically ventilated. She had no eye opening to stimulation. She did have some bilateral foot flexion with extension of the right knee to noxious stimulation. Her pupils did appear sluggish. Bilateral nystagmus is noted. 01/31: When seen this morning the patient is obtunded and having a continuous EEG. Nursing did report that the patient was started on phenobarbital yesterday and her fosphenytoin was adjusted. She is also on levetiracetam as well for the seizures. Her propofol is infusing at the maximum dose. She had slight withdrawal of the lower extremities to noxious stimulation upon examination which is the same as what Nursing said the patient did for her. No nystagmus noted. 04/06: This morning the patient is still obtunded. She does have propofol and midazolam infusing for sedation. She continues to be intubated and mechanically ventilated. With her sedation held for several minutes she has slight withdrawal /flexion of the lower extremities. No response with the upper extremities. EEG not attached to patient but Nursing does say she is to be reattached again for continuous EEG monitoring. 02/02: Pt sedated on Diprivan and Versed. She does not open her eyes or follow commands. 02/03: Patient is sedated on Diprivan and Versed. She does not open her eyes or follow commands. Pupils are 3 mm bilaterally. She remains intubated. 02/04: The patient is obtunded when seen this morning. She is on propofol, which has been decreased, and midazolam. She continues to be intubated and mechanically ventilated. There is no response to any stimulation. Yesterday afternoon the patient become hypotensive. She is now on a vasopressor for blood pressure support. She also spiked a temperature to 103.1 in the afternoon as well. (Js Nj) System Review Comments Unable to obtain due to patient's clinical condition. (Js Nj) Exam Results 02/02/18 02/02/18 02/03/18 02/03/18 02/04/18 02/04/18 06:00 18:00 06:00 18:00 06:00 18:00 Intake Total 935 ml 500 ml 1195 ml 1391 ml 2238 ml 200 ml Output Total 2030.0 ml 90.0 ml 1870.0 ml 1840 ml 3150 ml Balance -1095.0 ml 410.0 ml -675.0 ml -449 ml 2238 ml -2950 ml IV Total 702 ml 500 ml 1050 ml 1108 ml 1248 ml Tube Feeding 93 ml 95 ml 83 ml Packed Cells 800 ml Blood Product IV Normal Saline Flush 190 ml Tube Irrigant 140 ml 50 ml 200 ml 200 ml Output Urine Total 1700 ml 1450 ml 1200 ml 750 ml Gastric Drainage Total 640 ml 2400 ml Tube Feeding Residual Discard 330.0 ml 90.0 ml 420.0 ml # Bowel Movements 0 0 3 1 Vital Signs Date Time Temp Pulse Resp B/P (MAP) Pulse Ox O2 Delivery O2 Flow Rate FiO2 02/04/18 07:43 99 40 02/04/18 06:00 66 02/04/18 04:00 98.8 68 14 141/66 (91) 98 02/04/18 04:00 40 02/04/18 04:00 68 02/04/18 03:41 98 40 02/04/18 02:00 69 02/04/18 00:25 100 40 02/04/18 00:00 98.5 75 16 123/64 (83) 98 02/04/18 00:00 40 02/04/18 00:00 75 02/03/18 22:00 99.5 72 14 142/65 95 02/03/18 22:00 72 02/03/18 22:00 72 132/66 02/03/18 21:42 99.3 72 14 146/65 98 02/03/18 21:40 99.3 70 14 146/65 98 02/03/18 20:10 66 149/75 02/03/18 20:00 40 02/03/18 20:00 98.9 66 14 149/75 98 02/03/18 20:00 63 02/03/18 20:00 98.8 66 14 149/75 (99) 98 02/03/18 19:43 98.8 67 14 155/81 99 02/03/18 19:10 98 40 02/03/18 19:10 99 Mechanical Ventilator 40 02/03/18 19:05 121/62 (81) 02/03/18 19:00 98.7 70 14 134/70 (91) 98 02/03/18 18:55 119/64 (82) 02/03/18 18:50 120/58 (78) 02/03/18 18:45 123/62 (82) 02/03/18 18:41 122/62 (82) 02/03/18 18:36 115/57 (76) 02/03/18 18:30 117/60 (79) 02/03/18 18:30 117/60 02/03/18 18:25 119/60 02/03/18 18:20 134/57 (82) 02/03/18 18:15 124/60 (81) 02/03/18 18:10 122/60 (80) 02/03/18 18:10 122/60 02/03/18 18:06 119/57 (77) 02/03/18 18:00 73 14 122/59 (80) 99 02/03/18 18:00 73 02/03/18 17:55 74 120/58 (78) 02/03/18 17:50 117/58 02/03/18 17:45 99.4 112/56 (74) 02/03/18 17:45 112/56 02/03/18 17:35 74 14 104/53 (70) 100 02/03/18 17:35 104/53 02/03/18 17:30 113/55 (74) 02/03/18 17:10 102/53 02/03/18 17:10 100.7 102/53 (69) 02/03/18 17:00 114/56 (75) 02/03/18 16:45 114/56 (75) 02/03/18 16:45 114/56 02/03/18 16:30 107/54 (71) 02/03/18 16:30 107/54 02/03/18 16:15 95/62 (73) 02/03/18 16:03 96 40 02/03/18 16:01 96/51 02/03/18 16:01 100.1 88 14 96/51 (66) 98 02/03/18 16:00 97 02/03/18 16:00 40 02/03/18 15:30 105/57 (73) 02/03/18 15:25 116/59 (78) 02/03/18 15:20 132/60 (84) 02/03/18 15:15 110/58 (75) 02/03/18 15:10 103.1 76 106/54 (71) 02/03/18 15:01 89 83/49 02/03/18 15:00 76 14 102/60 (74) 98 02/03/18 14:00 102.2 95/54 (68) 02/03/18 14:00 91 02/03/18 13:50 94/48 (63) 02/03/18 13:30 87/50 (62) 02/03/18 13:20 85/49 (61) 02/03/18 13:10 90 82/47 (59) 02/03/18 12:12 99 40 02/03/18 12:00 89 4/8/18 12:00 99.2 86 14 98/51 (67) 02/03/18 12:00 40 02/03/18 10:00 85 02/03/18 08:00 40 02/03/18 08:00 98.9 84 14 99/55 (70) 97 02/03/18 08:00 97 Mechanical Ventilator 40 02/03/18 08:00 85 02/03/18 07:40 97 40 02/03/18 06:12 100.0 02/03/18 06:00 85 02/03/18 04:00 101.0 81 14 96/51 (66) 98 Arterial Line 02/03/18 04:00 99 40 02/03/18 04:00 40 02/03/18 04:00 81 02/03/18 03:00 103.0 91 14 83/52 (62) 98 83/52 (62) 02/03/18 02:00 91 02/03/18 00:50 99 40 02/03/18 00:00 91 02/03/18 00:00 40 02/03/18 00:00 102.3 91 14 106/52 (70) 98 02/02/18 22:00 87 02/02/18 20:00 80 02/02/18 20:00 97 Mechanical Ventilator 40 02/02/18 20:00 99.6 80 14 112/58 (76) 97 02/02/18 20:00 40 02/02/18 19:40 96 40 02/02/18 18:42 100.0 02/02/18 18:11 85 02/02/18 16:52 97 40 02/02/18 16:00 40 02/02/18 16:00 101.7 91 14 117/95 (102) 98 02/02/18 16:00 87 02/02/18 14:00 87 02/02/18 12:14 40 02/02/18 12:00 87 02/02/18 12:00 99.1 87 14 131/63 (85) 99 02/02/18 11:59 99 40 02/02/18 10:00 87 02/02/18 08:00 88 02/02/18 08:00 99.8 88 14 124/75 (91) 97 02/02/18 07:30 100 40 02/02/18 07:00 98 Mechanical Ventilator 40 02/02/18 06:00 81 4/7/18 04:00 40 02/02/18 04:00 98.7 84 14 117/95 (102) 98 02/02/18 04:00 84 02/02/18 03:35 100 40 02/02/18 02:00 83 02/02/18 00:16 100 40 02/02/18 00:00 83 02/02/18 00:00 99.2 81 14 121/58 (79) 97 02/02/18 00:00 40 02/01/18 22:00 86 02/01/18 20:00 99.0 86 14 136/65 (88) 98 02/01/18 20:00 98 Mechanical Ventilator 40 02/01/18 20:00 40 02/01/18 20:00 84 02/01/18 19:25 98 40 02/01/18 18:00 89 02/01/18 16:00 40 02/01/18 16:00 89 02/01/18 16:00 99.5 89 14 136/65 (88) 98 02/01/18 15:39 98 40 02/01/18 14:00 87 02/01/18 13:36 100 100 02/01/18 12:01 100 40 02/01/18 12:00 40 02/01/18 12:00 98.6 81 14 139/65 (89) 96 02/01/18 12:00 86 02/01/18 10:00 86 (Js Nj) Physical Examination GENERAL: Obtunded, intubated & mechanically ventilated. She has propofol infusing at 10 mcg/kg/min & midazolam at 6 mg/hr. No apparent distress. On phenylephrine at 30 mcg/min for blood pressure support. HEENT: Normocephalic. Bilateral craniotomy surgical incision well-approximated w /karolina & DIANN insertion site w/o any evident drainage, erythema or streaking. Right pupil 3 mm & left 2 mm questionably sluggish, no nystagmus. Orally intubated, OGT. MUSCULOSKELETAL: No response to any stimulation. Right foot dusky to toes & sole , left foot remains ecchymotic. NEUROLOGICAL: Obtunded but sedated. Nonverbal, orally intubated. Positive cough reflex. No eye opening to any stimulation. Right pupil 3 mm & left 2 mm questionably sluggish. No nystagmus noted. Weak corneal reflex bilaterally. Did not follow any commands. No motor response to any stimulation. (Js Nj) Lab, Micro, Other Results Recent Impressions Chest X-Ray 02/03/18 0000 Signed Impressions: Service Date/Time: Saturday, February 03, 2018 03:29 - CONCLUSION: No significant interval change. Persistent left lower lobe consolidation versus atelectasis and small pleural effusion. Parminder Gonzalez MD Chest X-Ray 02/02/18 0600 Signed Impressions: Service Date/Time: Friday, February 02, 2018 02:51 - CONCLUSION: No significant interval change. Persistent left lower lobe consolidation versus atelectasis and small left pleural effusion. Parminder Gonzalez MD Abdomen X-Ray 02/02/18 06 Signed Impressions: Service Date/Time: Friday, February 02, 2018 02:55 - CONCLUSION: Nonspecific bowel gas pattern. Parminder Gonzalez MD Laboratory Tests Test 02/01/18 14:45 02/01/18 23:00 02/02/18 03:30 02/02/18 08:19 Blood Gas Puncture Site ART LINE Blood Gas Patient Temperature 98.6 Blood Gas HCO3 19 mmol/L Blood Gas Base Excess -3.8 mmol/L Blood Gas Oxygen Saturation 95 % Arterial Blood pH 7.46 Arterial Blood Partial Pressure CO2 28 mmHg Arterial Blood Partial Pressure O2 103 mmHg Arterial Blood Oxygen Content 11.2 Vol % Arterial Blood Carboxyhemoglobin 1.2 % Arterial Blood Methemoglobin 1.7 % Blood Gas Hemoglobin 8.2 G/DL Oxygen Delivery Device VENTILATOR Blood Gas Ventilator Setting [facility]/AC14/450/1.2/+5 Blood Gas Inspired Oxygen 40 % Sodium Level 140 MEQ/L 141 MEQ/L Serum Osmolality 293 MOSM/KG Total Bilirubin 0.3 MG/DL Direct Bilirubin 0.2 MG/DL Indirect Bilirubin 0.1 MG/DL Aspartate Amino Transf (AST/SGOT) 15 U/L Alanine Aminotransferase (ALT/SGPT) 25 U/L Alkaline Phosphatase 50 U/L Total Protein 5.4 GM/DL 5.3 GM/DL Albumin 1.6 GM/DL Amylase Level 39 U/L Lipase 97 U/L Phenytoin (Dilantin) Level 10.9 MCG/ML 10.6 MCG/ML Phenobarbital Level 17.2 MCG/ML 20.2 MCG/ML Blood Urea Nitrogen 8 MG/DL Creatinine 0.44 MG/DL Random Glucose 168 MG/DL Calcium Level 7.4 MG/DL Potassium Level 3.6 MEQ/L Chloride Level 109 MEQ/L Carbon Dioxide Level 22.1 MEQ/L Anion Gap 10 MEQ/L Estimat Glomerular Filtration Rate 142 ML/MIN Protein Corrected Calcium 8.4 MG/DL White Blood Count 9.7 TH/MM3 Red Blood Count 2.96 MIL/MM3 Hemoglobin 8.8 GM/DL Hematocrit 26.1 % Mean Corpuscular Volume 88.0 FL Mean Corpuscular Hemoglobin 29.8 PG Mean Corpuscular Hemoglobin Concent 33.9 % Red Cell Distribution Width 14.8 % Platelet Count 190 TH/MM3 Mean Platelet Volume 8.5 FL Hematology Comments Test 02/03/18 03:50 02/03/18 04:00 02/03/18 05:00 02/03/18 07:38 Lactic Acid Level 1.9 mmol/L Urine Color YELLOW Urine Turbidity HAZY Urine pH 5.5 Urine Specific [place] 1.036 Urine Protein 30 mg/dL Urine Glucose (UA) NEG mg/dL Urine Ketones NEG mg/dL Urine Occult Blood NEG Urine Nitrite NEG Urine Bilirubin NEG Urine Urobilinogen 2.0 MG/DL Urine Leukocyte Esterase TRACE Urine RBC 10 /hpf Urine WBC 15 /hpf Urine Squamous Epithelial Cells 1 /hpf Urine Amorphous Sediment RARE Urine Bacteria FEW /hpf Urine Mucus FEW /lpf Microscopic Urinalysis Comment CATH-CULTURE IND Blood Urea Nitrogen 8 MG/DL Creatinine 0.46 MG/DL Random Glucose 119 MG/DL Total Protein 5.4 GM/DL Calcium Level 7.1 MG/DL Sodium Level 140 MEQ/L Potassium Level 3.3 MEQ/L Chloride Level 109 MEQ/L Carbon Dioxide Level 19.7 MEQ/L Anion Gap 11 MEQ/L Estimat Glomerular Filtration Rate 135 ML/MIN Protein Corrected Calcium 8.0 MG/DL Phenytoin (Dilantin) Level 9.6 MCG/ML Phenobarbital Level 23.1 MCG/ML White Blood Count 9.8 TH/MM3 Red Blood Count 2.17 MIL/MM3 Hemoglobin 6.8 GM/DL Hematocrit 19.9 % Mean Corpuscular Volume 91.9 FL Mean Corpuscular Hemoglobin 31.2 PG Mean Corpuscular Hemoglobin Concent 33.9 % Red Cell Distribution Width 14.9 % Platelet Count 139 TH/MM3 Mean Platelet Volume 7.8 FL Test 02/03/18 13:28 02/03/18 17:43 02/04/18 04:25 Lactic Acid Level 3.3 mmol/L 2.3 mmol/L White Blood Count 10.3 TH/MM3 Red Blood Count 3.47 MIL/MM3 Hemoglobin 10.8 GM/DL Hematocrit 30.9 % Mean Corpuscular Volume 88.9 FL Mean Corpuscular Hemoglobin 31.0 PG Mean Corpuscular Hemoglobin Concent 34.9 % Red Cell Distribution Width 14.5 % Platelet Count 122 TH/MM3 Mean Platelet Volume 9.2 FL Hematology Comments Blood Urea Nitrogen 13 MG/DL Creatinine 0.50 MG/DL Random Glucose 124 MG/DL Calcium Level 7.7 MG/DL Sodium Level 143 MEQ/L Potassium Level 3.9 MEQ/L Chloride Level 109 MEQ/L Carbon Dioxide Level 19.3 MEQ/L Anion Gap 15 MEQ/L Estimat Glomerular Filtration Rate 123 ML/MIN (Js Nj) Medical Decision Making Impression and Plan Impression: 1. Large frontal neoplasm noted on CT scan and previous MRI imaging. 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 Postoperative Diagnosis: (1) Meningioma, multiple (2) Parasagittal meningioma 1. Recurrent left parafalcine meningioma 2. 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 No response to any stimulation but sedated w/propofol & midazolam. On levetiracetam, fosphenytoin & phenobarbital for seizures. On vasopressor for blood pressure support. T max 103.1 yesterday afternoon. Hypotensive yesterday afternoon & SBP intermittently outside desired range after that. Reviewed labs for today. Improvement in haemoglobin level. Worsening of thrombocytopenia. Sodium 143. Hypokalemia resolved. Blood, sputum & urine cultures collected but pending. CT brain demonstrates multifocal areas (left frontal & bilateral temporal, parietal & occipital regions) of increased hypodensity w/mass effect suggestive of multifocal infarctions. Interval development of 6 mm left-to- right midline shift & effacement of the left occipital & frontal horns. EEG w/right frontocentral periodic lateralized epileptiform discharge -like activity c/w seizure focus & focal abnormality in the right frontocentral head region. DIANN drain d/c'd . POD #10 () s/p: Bifrontal craniotomy for resection 1. Left parafalcine meningioma 2. Bilateral cribriform plate -Planum sphenoidale meningioma 3. Use of frameless intraoperative stereotactic navigation for planning of the incision site and bone flap and resection of the parafalcine and frontal skull base neoplasm. Plan: Primary management per Hospitalist. Critical care management per Appellate Law Clerk. Seizure management per Neurology. Neuro checks. Stat CT brain for any decline in neuro status. Maintain SBP between 110 and 140 mm Hg. MRI brain w/o & w/contrast. Appreciate Appellate Law Clerk's & Neurology's assistance in managing this critically ill patient. (Js Nj) Attending Statement The exam, history, and the medical decision-making described in the above note were completed with the assistance of the mid-level provider. I reviewed and agree with the findings presented. I attest that I had a [id number] encounter with the patient on the same day, and personally performed and documented my assessment and findings in the medical record. On 02/04/2018 exam, patient remains intubated, sedated. Dilated sluggish reactive pupils. Mild flexion right greater than left upper extremity to deep pain. Plan MRI brain. Continuing ventilatory support. Palliative care following. (Tolu Herring MD) Js Nj Feb 04, 2018 09:37 Tolu Herring MD Feb 05, 2018 16:16
--- NOTE | 2018-02-04 14:26 | HHI.CCPN ---
Subjective Remarks/Hospital Course 67-year-old female patient with history of a previous brain mass for which she underwent evaluation. She was after court order because she became aggressive and hostile at home. The patient lives with her mother, who has Alzheimer disease. The CT of the head performed in the emergency department showed an Extra-axial left frontal mass again seen with left to right midline shift, likely related to meningioma. She has undergone another tumor resection by Dr. Herring today. The patient remains postprocedure intubated, also the repeated postoperative CAT scan of the head show significant amount of brain edema. 01/26: FiO2 remains at 75%. Small left pleural effusion/atelectasis noted. Remains on 3% at [address] brain revealed stable cerebral edema with stable hemorrhage. Sedated on propofol drip at 40 mcg/kg/min 01/27: FiO2 down to 50%. Withdraws to pain bilateral upper and lower extremities. Currently on propofol drip at 45 mcg/kg/min. Tolerating tube feeds. 01/28: FiO2 down to 40%. Opens eyes to voice but currently not following commands. No tremor activity noted. Repeat EEG performed but results are pending. Currently levetiracetam and 1000 mg IV 3 times daily with phenytoin level at therapeutic levels 01/29: T-max 99. Currently afebrile. Noted right hemispheric slowing/sharps in the right central/frontal region. Currently levetiracetam thousand milligrams twice daily and fosphenytoin 100 mg 3 times daily. Tolerating CPAP. Neurologically opens eyes to voice withdraws bilateral lower extremities. Intermittent tremors upper extremity 01/30: no neuro exam changes noted. nsgy noticed some facial twitching and repeat EEG ordered, but no change in baseline neuro exam. 01/31: ongoing seizure focus. phenobarb added by neurology. neurologic exam stable , but remains poor. Subjective 6: Resting comfortably in bed in no acute distress. Afebrile. Continues to have focal sharp activity on continuous EEG in the right frontal/central regions will bolus with midazolam 5 mg IV 1 now. No bowel movements 5 days. KUB yesterday shows no signs of ileus or obstructive type process. On trickle feeds at 10 cc an hour with residuals around 200 cc greenish 02/02: Continue TFs. On high dose versed and propofol for seizure control. 02/03: Fevers persists. Remove [place] and CVL. Culture and start broad abx coverage. Residual gastric 300 mls with trickle feeds. Hold for now, start motility med. 02/04: Color and perfusion much improved after transfusion last evening. Source of anemia unclear. Prognosis remains poor. Family considering withdrawal/DNR but they want her organs donated. Objective Vital Signs Date Time Temp Pulse Resp B/P (MAP) Pulse Ox O2 Delivery O2 Flow Rate FiO2 02/04/18 11:03 97 40 02/04/18 06:00 66 02/04/18 04:00 98.8 14 141/66 (91) 02/03/18 19:10 Mechanical Ventilator Intake and Output 02/04/18 02/04/18 02/05/18 08:00 16:00 00:00 Intake Total 502 ml Output Total 3150 ml Balance -2648 ml Result Diagram: 02/04/18 0425 02/04/18 0425 Imaging Last Impressions Chest X-Ray 01/28/18 0600 Signed Impressions: Service Date/Time: Sunday, January 28, 2018 03:50 - CONCLUSION: No significant interval change Tommie Solis MD Head CT 01/26/18 1220 Signed Impressions: Service Date/Time: Friday, January 26, 2018 13:48 - CONCLUSION: 1. Slight improvement in acute hemorrhage and edema in the frontal lobe since January 26 exam from earlier today with slightly less mass effect and midline shift. No new hemorrhage. Andrey Pearson MD Head CTA 01/25/18 0000 Signed Impressions: Service Date/Time: Thursday, January 25, 2018 17:59 - CONCLUSION: No acute vascular findings Tommie Solis MD Brain MRI 01/24/18 0000 Signed Impressions: Service Date/Time: December 10:18 - CONCLUSION: Large enhancing mass in the upper left frontal lobe as well as dural enhancement along the base of the skull anterior midline. Vern Boo MD Procedures Left subclavian CVL 01/[address] Baldwin Left radial A-line placed in OR 01/25 Disinhibition Score: 14.00 Aggression Score: 14.00 Lability Score: 14.00 Agitated Behavior Total Score: 14 Objective Remarks GENERAL: 67-year-old female currently orotracheally intubated SKIN: Warm and dry. No rash HEAD: Post bifrontal craniectomy with karolina intact, dry, clean. EYES: No scleral icterus. No injection or drainage. NECK: Supple, trachea midline. No JVD. CARDIOVASCULAR: Regular rate and rhythm. sinus. RESPIRATORY: equal chest rise. No accessory muscle use. GASTROINTESTINAL: Abdomen soft, non-tender, nondistended. MUSCULOSKELETAL: No significant peripheral edema. Ecchymosis to dorsal aspect left greater than right foot. Toes discolored. NEURO EXAM: Intubated. 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 1.8 parenchymal hemorrhage left temporal region. Neuro basilar cisterns. Central sulci are effaced. CT brain 01/26 - Stable he is ventricle hemorrhage and edema in the left frontal and left posterior temporal regions. Slight mass effect left to right shift of the third ventricle measuring 3 mm. No new hemorrhage is identified. There may be slightly less and edema in the frontal lobes on the previous study but the change is minimal. Evaluated preop by psychiatry Dr. Costa and deemed competent Continuous EEG Currently on propofol drip at 50 mcg/kg/min and midazolam drip at 6 mg an hour for seizure control. [place] goal RASS of -2 Daily sedation vacation when okay with Dr. Herring Serial sodiums every 6 hours with serum serum osmolalities every 6 hours Remains on dexamethasone at 4 mg IV every 6 hours for brain mass. Management per neurosurgery Levetiracetam 1000 mg IV 3 times daily Phenobarbital 90 mg IV every 4 hours. Level 4/6 a.m. pending Currently fosphenytoin 100 mg IV every 6 hours. A.m. level 4/6 pending EEG 4/1 revealed sharps right frontal region. EEG 4/3 revealed right hemispheric sharps in the right frontal central region. EEG 4/5: Sharps right frontal/parietal region followed by neurology/Dr. Lockwood. Antiepileptics as above. CV: Hypertension Phenylephrine drip to maintain systolic blood pressure greater than 110 Written for nicardipine drip and labetalol/clonidine as needed to maintain systolic blood pressure less than 130 Previously on nifedipine 30 mg sustained release daily. Resp: Postoperative respiratory failure [facility] 18/500/11/02/39 Ventilator bundle Albuterol/ipratropium aerosols every 6 hours with albuterol aerosols every 2 hours as needed dyspnea Spontaneous breathing trials when clinically indicated Portable chest x-ray in a.m. 02/02 ABG/6 pending -> alkalosis improving. GI: Constipation Hypoalbuminemia Tube feeding with Glucerna 1.5 goal 10 cc an hour. Nutrition recommended vital high-protein at 45 cc now. We will continue with hyperglycemia Lansoprazole 30 mg daily for GI prophylaxis Docusate sodium 100 mg twice daily/senna liquid 8.8 mg twice daily for bowel regimen Add polyethylene glycol 17 g twice daily and lactulose 30 cc 4 times daily. Mineral oil 30 cc 1. Methylnaltrexone 12 mg subcu 1 now. Glycerin suppository 1 now. Recheck KUB in a.m. 02/02 Check LFTs, amylase and lipase today. Erythromycin 200 mg every 8 hours. Holding metoclopramide in light of seizure activity Hold TFs due to high residual 02/03 : D/C Jeana Endo: Hyperglycemia of critical illness/steroid induced Holding low-dose insulin detemir 15 units twice daily with high residuals. 2unit sliding scale insulin past 24 hours Sliding scale insulin/moderate regimen with Accu-Cheks every 4 hours to maintain euglycemia Novulog Renal: Creatinine currently within normal limits Monitor urine output Accurate I's and O's Heme: Normocytic anemia Monitor CBC daily. Follow trends ID: Monitor for signs and symptoms of infection FEN: MSK: Physical therapy evaluate and treat Access -Left subclavian CVL placed 01/25 -> d/c Prophylaxis -GI -lansoprazole -DVT -SCD/holding pharmacological prophylaxis in light of hemorrhage. Initiate when okay with neurosurgery Overall impression: Patient remains critically ill requiring seizure control and mechanical ventilation. Unstable neurological status. Unable to wean from ventilator. New fevers are concerning, sepsis workup in progress. Family would like to withdraw support soon. Critical Care 38 mins Hernandez Lawson MD Feb 04, 2018 14:26
--- NOTE | 2018-02-04 16:21 | HHI.HCPN ---
Reason for visit a. To assist with evaluation and management of symptoms including: Encephalopathy, seizures b. To assist medical decision maker(s) with: better understanding of current medical conditions; weighing benefits/burdens of medical treatment options; making medical treatment decisions. Subjective/Interval History Patient seen to follow-up on symptom management and goals of care. 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 She remains encephalopathic, not responding to noxious stimuli. Seizures controlled per Dr. Rodrigues, neurology, on phenobarbital, Dilantin. Propofol is being weaned from 50 mcg/kg/min, now down to 10 mcg/kg/min. She remains on Versed at 6 mg/h. CT of the head on 02/01 shows multifocal areas of increased hypodensity with mass-effect including the surgical site left frontal region and bilateral temporal/parietal/occipital regions suggestive of multifocal infarctions and interval development of 6 mm midline shift towards the right and effacement of the left occipital and left frontal horn. MRI is scheduled today to further evaluate areas of infarction. Labs yesterday showed an acute drop in hemoglobin and hematocrit from 8.8-6.8 and 26.1-19.9 respectively. She was transfused with 2 units packed red blood cells and today H&H is 10.8/30.9. Chemistry panel shows sodium 143, potassium 3.9, BUN 13, creatinine 0.50, lactic acid 2.3, calcium 7.7. She continues to require vasopressor support with Azar-Synephrine, now running at 30 mcg/min. She remains intubated and sedated. On mechanical ventilator with 40% FiO2. Spontaneous breathing trial today was terminated immediately due to apnea. She was febrile yesterday at 103.1, remains afebrile today. . Family/friend interactions Spoke with her sister, Karla, today improvement conversation she has now been made a DO NOT RESUSCITATE status. Karla would like for her sister to be an organ donor however per my conversation with [facility], she is not a candidate as she is not brain and given her age greater than 60, allowing a natural would increase the ischemia to the organs, decreasing their viability. Meeting is planned for tomorrow around 11 to further pursue decisions regarding withdrawal of life support as the patient is clearly not progressing as she would have expected and had expressed her wishes to her sister she would not wish to live in an impaired state. . Advance Directives Living Will: Never completed Health Care Surrogate: Never completed Durable Power of Casing Cleaner: Never completed Advance Directive Specifics Health Care Surrogate(s): Never completed. Documented care wishes: Never completed. . Objective Vital Signs Date Time Temp Pulse Resp B/P (MAP) Pulse Ox O2 Delivery O2 Flow Rate FiO2 02/04/18 15:22 96 40 02/04/18 14:33 40 02/04/18 11:03 97 40 02/04/18 07:43 99 40 02/04/18 06:00 66 02/04/18 04:00 98.8 68 14 141/66 (91) 98 02/04/18 04:00 40 02/04/18 04:00 68 02/04/18 03:41 98 40 02/04/18 02:00 69 02/04/18 00:25 100 40 02/04/18 00:00 98.5 75 16 123/64 (83) 98 02/04/18 00:00 40 02/04/18 00:00 75 02/03/18 22:00 99.5 72 14 142/65 95 02/03/18 22:00 72 02/03/18 22:00 72 132/66 02/03/18 21:42 99.3 72 14 146/65 98 02/03/18 21:40 99.3 70 14 146/65 98 02/03/18 20:10 66 149/75 02/03/18 20:00 40 02/03/18 20:00 98.9 66 14 149/75 98 02/03/18 20:00 63 02/03/18 20:00 98.8 66 14 149/75 (99) 98 02/03/18 19:43 98.8 67 14 155/81 99 02/03/18 19:10 98 40 02/03/18 19:10 99 Mechanical Ventilator 40 02/03/18 19:05 121/62 (81) 02/03/18 19:00 98.7 70 14 134/70 (91) 98 02/03/18 18:55 119/64 (82) 02/03/18 18:50 120/58 (78) 02/03/18 18:45 123/62 (82) 02/03/18 18:41 122/62 (82) 02/03/18 18:36 115/57 (76) 02/03/18 18:30 117/60 (79) 02/03/18 18:30 117/60 02/03/18 18:25 119/60 02/03/18 18:20 134/57 (82) 02/03/18 18:15 124/60 (81) 02/03/18 18:10 122/60 (80) 02/03/18 18:10 122/60 02/03/18 18:06 119/57 (77) 02/03/18 18:00 73 14 122/59 (80) 99 02/03/18 18:00 73 02/03/18 17:55 74 120/58 (78) 02/03/18 17:50 117/58 02/03/18 17:45 99.4 112/56 (74) 02/03/18 17:45 112/56 02/03/18 17:35 74 14 104/53 (70) 100 02/03/18 17:35 104/53 02/03/18 17:30 113/55 (74) 02/03/18 17:10 102/53 02/03/18 17:10 100.7 102/53 (69) 02/03/18 17:00 114/56 (75) 02/03/18 16:45 114/56 (75) 02/03/18 16:45 114/56 02/03/18 16:30 107/54 (71) 02/03/18 16:30 107/54 02/03/18 16:15 95/62 (73) 02/03/18 16:03 96 40 02/03/18 16:01 96/51 02/03/18 16:01 100.1 88 14 96/51 (66) 98 02/03/18 16:00 97 02/03/18 16:00 40 Intake & Output 02/04/18 02/04/18 07:00 19:00 Intake Total 2438 ml Output Total 3150 ml Balance -712 ml IV Total 1248 ml Packed Cells 800 ml Blood Product IV Normal Saline Flush 190 ml Tube Irrigant 200 ml Output Urine Total 750 ml Gastric Drainage Total 2400 ml # Bowel Movements 1 Physical Exam CONSTITUTIONAL/GENERAL: This is an adequately nourished patient, intubated, sedated in no apparent distress. TUBES/LINES/DRAINS: ETT, OGT, N, left subclavian central line, right ACF PIV NECK: Orally intubated. CARDIOVASCULAR: Regular rate and rhythm without murmurs, gallops, or rubs. No JVD. Peripheral pulses symmetric. RESPIRATORY/CHEST: Symmetric, unlabored respirations. Clear to auscultation. Breath sounds equal bilaterally. No wheezes, rales, or rhonchi. GASTROINTESTINAL: Abdomen soft, nondistended. No hepato-splenomegaly, or palpable masses. Bowel sounds present. GENITOURINARY: Without palpable bladder distension. MUSCULOSKELETAL: 1+ left lower extremity edema with ecchymosis seen on left foot. Right lower extremity with trace edema, discoloration to toes and plantar surface NEUROLOGICAL: Intubated, sedated. Pupils 2 mm, equal, sluggishly reactive, no nystagmus noted. No response to noxious stimuli PSYCHIATRIC: Sedated. . Diagnostic Tests Laboratory Laboratory Tests Test 02/01/18 23:00 02/02/18 03:30 02/02/18 08:19 02/03/18 03:50 Sodium Level 140 MEQ/L (136-145) 141 MEQ/L (136-145) Serum Osmolality 293 MOSM/KG (275-295) Total Bilirubin 0.3 MG/DL (0.2-1.0) Direct Bilirubin 0.2 MG/DL (0.0-0.2) Indirect Bilirubin 0.1 MG/DL (0.0-0.8) Aspartate Amino Transf (AST/SGOT) 15 U/L (15-37) Alanine Aminotransferase (ALT/SGPT) 25 U/L (10-53) Alkaline Phosphatase 50 U/L (45-117) Total Protein 5.4 GM/DL (6.4-8.2) 5.3 GM/DL (6.4-8.2) Albumin 1.6 GM/DL (3.4-5.0) Amylase Level 39 U/L (25-115) Lipase 97 U/L (73-393) Phenytoin (Dilantin) Level 10.9 MCG/ML (10.0-20.0) 10.6 MCG/ML (10.0-20.0) Phenobarbital Level 17.2 MCG/ML (15.0-40.0) 20.2 MCG/ML (15.0-40.0) Blood Urea Nitrogen 8 MG/DL (7-18) Creatinine 0.44 MG/DL (0.50-1.00) Random Glucose 168 MG/DL (74-106) Calcium Level 7.4 MG/DL (8.5-10.1) Potassium Level 3.6 MEQ/L (3.5-5.1) Chloride Level 109 MEQ/L (98-107) Carbon Dioxide Level 22.1 MEQ/L (21.0-32.0) Anion Gap 10 MEQ/L (5-15) Estimat Glomerular Filtration Rate 142 ML/MIN (>89) Protein Corrected Calcium 8.4 MG/DL (8.5-10.1) White Blood Count 9.7 TH/MM3 (4.0-11.0) Red Blood Count 2.96 MIL/MM3 (4.00-5.30) Hemoglobin 8.8 GM/DL (11.6-15.3) Hematocrit 26.1 % (35.0-46.0) Mean Corpuscular Volume 88.0 FL (80.0-100.0) Mean Corpuscular Hemoglobin 29.8 PG (27.0-34.0) Mean Corpuscular Hemoglobin Concent 33.9 % (32.0-36.0) Red Cell Distribution Width 14.8 % (11.6-17.2) Platelet Count 190 TH/MM3 (150-450) Mean Platelet Volume 8.5 FL (7.0-11.0) Hematology Comments Lactic Acid Level 1.9 mmol/L (0.4-2.0) Test 02/03/18 04:00 02/03/18 05:00 02/03/18 07:38 02/03/18 13:28 Urine Color YELLOW (YELLW/STRAW) Urine Turbidity HAZY (CLEAR) Urine pH 5.5 (5.0-8.5) Urine Specific [place] 1.036 (1.002-1.035) Urine Protein 30 mg/dL (NEG-TRACE) Urine Glucose (UA) NEG mg/dL (NEG) Urine Ketones NEG mg/dL (NEG) Urine Occult Blood NEG (NEG) Urine Nitrite NEG (NEG) Urine Bilirubin NEG (NEG) Urine Urobilinogen 2.0 MG/DL (LESS THAN Urine Leukocyte Esterase TRACE (NEG) Urine RBC 10 /hpf (0-3) Urine WBC 15 /hpf (0-5) Urine Squamous Epithelial Cells 1 /hpf (0-5) Urine Amorphous Sediment RARE Urine Bacteria FEW /hpf (NONE) Urine Mucus FEW /lpf (OCC) Microscopic Urinalysis Comment CATH-CULTURE IND Blood Urea Nitrogen 8 MG/DL (7-18) Creatinine 0.46 MG/DL (0.50-1.00) Random Glucose 119 MG/DL (74-106) Total Protein 5.4 GM/DL (6.4-8.2) Calcium Level 7.1 MG/DL (8.5-10.1) Sodium Level 140 MEQ/L (136-145) Potassium Level 3.3 MEQ/L (3.5-5.1) Chloride Level 109 MEQ/L (98-107) Carbon Dioxide Level 19.7 MEQ/L (21.0-32.0) Anion Gap 11 MEQ/L (5-15) Estimat Glomerular Filtration Rate 135 ML/MIN (>89) Protein Corrected Calcium 8.0 MG/DL (8.5-10.1) Phenytoin (Dilantin) Level 9.6 MCG/ML (10.0-20.0) Phenobarbital Level 23.1 MCG/ML (15.0-40.0) White Blood Count 9.8 TH/MM3 (4.0-11.0) Red Blood Count 2.17 MIL/MM3 (4.00-5.30) Hemoglobin 6.8 GM/DL (11.6-15.3) Hematocrit 19.9 % (35.0-46.0) Mean Corpuscular Volume 91.9 FL (80.0-100.0) Mean Corpuscular Hemoglobin 31.2 PG (27.0-34.0) Mean Corpuscular Hemoglobin Concent 33.9 % (32.0-36.0) Red Cell Distribution Width 14.9 % (11.6-17.2) Platelet Count 139 TH/MM3 (150-450) Mean Platelet Volume 7.8 FL (7.0-11.0) Lactic Acid Level 3.3 mmol/L (0.4-2.0) Test 02/03/18 17:43 02/04/18 04:25 Lactic Acid Level 2.3 mmol/L (0.4-2.0) White Blood Count 10.3 TH/MM3 (4.0-11.0) Red Blood Count 3.47 MIL/MM3 (4.00-5.30) Hemoglobin 10.8 GM/DL (11.6-15.3) Hematocrit 30.9 % (35.0-46.0) Mean Corpuscular Volume 88.9 FL (80.0-100.0) Mean Corpuscular Hemoglobin 31.0 PG (27.0-34.0) Mean Corpuscular Hemoglobin Concent 34.9 % (32.0-36.0) Red Cell Distribution Width 14.5 % (11.6-17.2) Platelet Count 122 TH/MM3 (150-450) Mean Platelet Volume 9.2 FL (7.0-11.0) Hematology Comments Blood Urea Nitrogen 13 MG/DL (7-18) Creatinine 0.50 MG/DL (0.50-1.00) Random Glucose 124 MG/DL (74-106) Calcium Level 7.7 MG/DL (8.5-10.1) Sodium Level 143 MEQ/L (136-145) Potassium Level 3.9 MEQ/L (3.5-5.1) Chloride Level 109 MEQ/L (98-107) Carbon Dioxide Level 19.3 MEQ/L (21.0-32.0) Anion Gap 15 MEQ/L (5-15) Estimat Glomerular Filtration Rate 123 ML/MIN (>89) Result Diagram: 02/04/18 0425 02/04/18 0425 Microbiology Microbiology Date/Time Source Procedure Growth Status 02/03/18 03:50 Blood Peripheral Aerobic Blood Culture - Preliminary NO GROWTH IN 1 DAY Resulted 02/03/18 03:50 Blood Peripheral Anaerobic Blood Culture - Preliminary NO GROWTH IN 1 DAY Resulted 02/03/18 03:38 Blood Peripheral Aerobic Blood Culture - Preliminary NO GROWTH IN 1 DAY Resulted 02/03/18 03:38 Blood Peripheral Anaerobic Blood Culture - Preliminary NO GROWTH IN 1 DAY Resulted 02/03/18 04:00 Sputum Endotracheal Gram Stain - Final Resulted 02/03/18 04:00 Sputum Culture - Preliminary Staphylococcus Aureus Resulted 02/03/18 04:00 Urine Catheterized Urine Urine Culture - Preliminary IMMATURE GROWTH - REINCUBATE Resulted Imaging Last Impressions Chest X-Ray 4/8/18 0000 Signed Impressions: Service Date/Time: Saturday, February 03, 2018 03:29 - CONCLUSION: No significant interval change. Persistent left lower lobe consolidation versus atelectasis and small pleural effusion. Parminder Gonzalez MD Abdomen X-Ray 02/02/18 0600 Signed Impressions: Service Date/Time: Friday, February 02, 2018 02:55 - CONCLUSION: Nonspecific bowel gas pattern. Parminder Gonzalez MD Head CT 02/01/18 0800 Signed Impressions: Service Date/Time: Thursday, February 01, 2018 13:16 - CONCLUSION: Multifocal areas of increased hypodensity with mass effect including the surgical site left frontal region, and bilateral temporal/parietal/ occipital regions. The findings suggest multifocal infarctions. Interval development of 6 mm midline shift towards the right and effacement of the left occipital horn and left frontal horn. Otis Huff MD Foot X-Ray 01/29/18 0000 Signed Impressions: Service Date/Time: Monday, January 29, 2018 20:36 - CONCLUSION: 1. No acute findings. Andrey Pearson MD Head CTA 01/25/18 0000 Signed Impressions: Service Date/Time: Thursday, January 25, 2018 17:59 - CONCLUSION: No acute vascular findings Tommie Solis MD Brain MRI 01/24/18 0000 Signed Impressions: Service Date/Time: December 10:18 - CONCLUSION: Large enhancing mass in the upper left frontal lobe as well as dural enhancement along the base of the skull anterior midline. Vern Boo MD Procedures 01/25/2018: Bifrontal craniotomy for resection of left parafalcine meningioma, bilateral cribriform plate-planum sphenoidale meningioma 01/25/2018: Continued intubation status post surgery. 01/26/2018: Left subclavian central line placement 01/26/2018: Right femoral arterial catheter placement . Assessment and Plan Disease Oriented Problem List: (1) Brain mass (2) Confusion (3) Agitation Symptom Scale: (1) Confusion 0-10 Scale: Unable to quantify (Confusion is intermittent. Oriented to person place purpose and time at this evaluation.) (2) Agitation 0-10 Scale: Unable to quantify (Intermittent. No agitation at this time..) Pertinent Non-Medical Issues Psychosocial:She was born in [place] and moved to [place] in the mid 80's. She was never and has no children. 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 Spiritual: Spiritual in her own way but not associated with any organized latter-day. Legal: Pending psychiatry consultation to determine capacity to make decisions. Ethical issues impacting care: Admitted under ex parte court order. . Important Contacts Sister: Karla Keller DCF agricultural engineer, Chelsey Bourgeois . Prognosis Her prognosis is guarded. It is unknown whether her intermittent confusion is secondary to baseline dementia or brain masses. She has been brought in under court order twice in the last month, once under a [place] act, the second 1 under an ex parte order. She has 2 very large masses in her brain, thought to be meningiomas, and is awaiting evaluation by neurosurgery to determine whether surgery is appropriate and if so when it would be scheduled. With surgery, she is at risk for surgical complications and postoperative deficits, without surgery she is at risk for further complications and decline. . Code Status: No Code Plan PLAN: Legal decision maker: She is currently not capacitated as she is intubated and sedated. Per [place] statutes, her sister Karla Keller would be her healthcare decision maker. Goals: Aggressive at this time. CODE STATUS: FULL CODE SYMPTOMS: * Encephalopathy: She is status post craniotomy and electroencephalogram is showing right frontal slowing, no seizures. CT of the head showed multiple infarctions, pending MRI for further delineation. No significant neurological recovery at this time. Sister considering withdrawal due to poor prognosis, poor recovery to honor her sister's wishes that she did not wish to live impaired. * Seizures: She is currently on phenobarbital, Versed, propofol, Keppra and Cerebyx. No further seizures at this time per neurology's note. Remains on seizure precautions. Palliative care will continue to follow the patient during hospital course as condition evolves, to assist patient/decision-maker with understanding of their medical conditions, weighing benefits/burdens of treatment options, for clarification of goals of treatment. Additionally will assist with any symptoms of palliative concern. . Attestation To help prompt me to consider important information that might be impacting today's encounter and assessment, information from prior notes written by myself or my colleagues may have been "brought forward" into today's note. My signature on this note, however, is an attestation that I personally performed the exam, history, and/or decision-making noted today, and, unless otherwise indicated, the interactions with patient, family, and staff as well as the review of records all occurred today. I also attest that the listed assessment and stated plan reflect my best clinical judgment today based on the combination of historical information, prior notes, and today's exam/ interactions. When time spent is documented, it refers only to time spent today by the signer, or if indicated, combined time spent today by collaborating physician/nurse practitioner. . Kassi Tang Feb 04, 2018 4:21 pm
[2018-02-04] MEDS ORDERED: PHARMACY ORDERED LAB ONE (16:45)
[2018-02-04] MEDS: fentaNYL DRIP 250 ML IV PRN (18:02)
[2018-02-04] MEDS: MIDAZOLAM 100 MG/NS 100 ML DRIP Premix IV SCH (18:02)
[2018-02-04] MEDS: PHENYLEPHRINE INJ 40 MG in SODIUM CHLORID 0.9% 500 ML INJ 496 ML IV PRN (20:42)
[2018-02-04] MEDS: PROPOFOL 1000 MG/100 ML INJ 100 ML IV PRN (20:44)
[2018-02-05] VITALS (8 sets, daily range): BP systolic 106–114; BP diastolic 59–66; PULSE 63–65; RESP 14; TEMP 98.3–98.7; O2SAT 100
[2018-02-05] MEDS: DEXAMETHASONE SOD PHOS 4 MG/ML VIAL IV PUSH SCH ×3 (00:34→12:00)
[2018-02-05] MEDS: FOSPHENYTOIN INJ 100 MGPE in SODIUM CHLORIDE 0.9% INJ 50 ML IV SCH ×2 (00:35→08:00)
[2018-02-05] MEDS: MIDAZOLAM 100 MG/NS 100 ML DRIP Premix IV SCH (00:38)
[2018-02-05] MEDS: PIPERACIL-TAZO 4.5 GM PREMIX 100 ML IV SCH ×2 (03:37→08:12)
[2018-02-05] MEDS: PHENobarbital INJ 90 MG in SODIUM CHLORIDE 0.9% INJ 50 ML IV SCH ×3 (03:38→12:00)
[2018-02-05] MEDS: ARTIFICIAL TEARS OPTH SOLN 15 ML BTL EACH EYE SCH (03:38)
[2018-02-05] MEDS: INSULIN ASPART SUPPLEMENTAL SCALE SQ SCH ×3 (03:38→12:00)
[2018-02-05 04:56] LABS: HEMATOCRIT 26.6 % (35.0-46.0); HEMOGLOBIN 9.1 GM/DL (11.6-15.3); MEAN CELL VOLUME 90.2 FL (80.0-100.0); MEAN CORPUSCULAR HEMOGLOBIN 30.9 PG (27.0-34.0); MEAN CORPUSCULAR HGB CONC 34.2 % (32.0-36.0); MEAN PLATELET VOLUME 8.7 FL (7.0-11.0); PLATELET COUNT 171 TH/MM3 (150-450); RED BLOOD COUNT 2.95 MIL/MM3 (4.00-5.30); RED CELL DISTRIBUTION WIDTH 14.9 % (11.6-17.2); WHITE BLOOD COUNT 11.2 TH/MM3 (4.0-11.0)
[2018-02-05 05:22] LABS: BICARBONATE 19.7 MEQ/L (21.0-32.0); CREATININE 0.48 MG/DL (0.50-1.00)
--- NOTE | 2018-02-05 05:56 | RADRPT ---
EXAM DATE/TIME: 02/05/2018 04:42 [facility] COMPARISON: CHEST SINGLE AP, February 03, 2018, 3:29. INDICATIONS : Fever. Short of breath. MEDICAL HISTORY : Dementia. Brain mass SURGICAL HISTORY : Craniotomy. ENCOUNTER: Subsequent ACUITY: 2 weeks PAIN SCORE: Non-responsive. LOCATION: Bilateral chest FINDINGS: A single view of the chest demonstrates left basilar consolidation. Endotracheal tube, nasogastric tu be and left subclavian central line in stable position. Heart mildly enlarged. Osseous structures ar e intact. CONCLUSION: Left basilar consolidation. Tate Diez MD on February 05, 2018 at 5:54 Board Certified Radiologist. This report was verified electronically.
[2018-02-05] MEDS: levETIRAcetam INJ 100 ML IV SCH (06:00)
[2018-02-05] MEDS: POLYETHYLENE GLYCOL 17 GM PKG NG SCH (07:59)
[2018-02-05] MEDS: DOCUSATE SODIUM 100 MG/10 ML UDC PO SCH (08:00)
[2018-02-05] MEDS: SENNOSIDES SYRUP 8.8 MG/5 ML CUP PO SCH (08:00)
[2018-02-05] MEDS: fentaNYL DRIP 250 ML IV PRN (08:00)
[2018-02-05] MEDS: CHLORHEXIDINE 0.12% (ORAL KIT) 15 ML CUP MT SCH (08:00)
[2018-02-05] MEDS: LACTULOSE SYRUP 20 GM/30 ML CUP PO SCH ×2 (08:00→12:32)
[2018-02-05] MEDS: ERYTHROMYCIN ETHYLSUCCINATE 200 MG/5 ML SUSP 100 ML BOTTLE PO SCH (08:13)
[2018-02-05] MEDS: NYSTATIN 100,000 U/GM PWD 15 GM BTL TOPICAL SCH (08:13)
[2018-02-05] MEDS: LANSOPRAZOLE SOLUTAB 30 MG TAB NG SCH (08:13)
--- NOTE | 2018-02-05 10:17 | HHI.HCPN ---
Reason for visit a. To assist with evaluation and management of symptoms including: Encephalopathy, seizures b. To assist medical decision maker(s) with: better understanding of current medical conditions; weighing benefits/burdens of medical treatment options; making medical treatment decisions. Subjective/Interval History Patient seen to follow-up on symptom management and goals of care. 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 She remains encephalopathic, not responding to noxious stimuli. Feet remained ecchymotic/mottled. Seizures controlled per Dr. Rodrigues, neurology, on phenobarbital, Keppra, Dilantin. Propofol is now down to 10 mcg/ kg/min. She was taken off versed at [address] of the head on 02/01 shows multifocal areas of increased hypodensity with mass-effect including the surgical site left frontal region and bilateral temporal/parietal/occipital regions suggestive of multifocal infarctions and interval development of 6 mm midline shift towards the right and effacement of the left occipital and left frontal horn. MRI is scheduled today to further evaluate areas of infarction. She continues to require vasopressor support with Azar-Synephrine, now running at 30 mcg/min. She remains intubated and lightly sedated. On mechanical ventilator with 40% FiO2. Spontaneous breathing trial yesterday was terminated immediately due to apnea. Plan to retry today on minimal sedation for vent synchrony and comfort. She is afebrile today. Laboratory values show WBC 11.2 , hemoglobin 9.1, hematocrit 26.6, platelets 171, sodium 143, potassium 3.9, BUN 16, creatinine 0.48, calcium 8.0, toxicology shows a random vancomycin 26.0. Sputum culture shows methicillin sensitive staph aureus. Chest x-ray shows left basilar consolidation with stable tubes, mild cardiomegaly. . Family/friend interactions Spoke with sister at bedside is her opinion based on clinical findings, patient condition and multiple previous discussions with her sister that she would not wish to continue aggressive management and would prefer to be withdrawn from life support. This was discussed with Dr. Bravo, attending today who agrees with her decision as well as Dr. Vahid Lucas for palliative care who also agrees with this decision. Consents initiated, anticipatory guidance given, all questions answered. Patient's sister prefers to have the withdrawal done at the hospital to continue to support the palliative care team with whom she has established trust. . Advance Directives Living Will: Never completed Health Care Surrogate: Never completed Durable Power of Wood Last Maker: Never completed Advance Directive Specifics Health Care Surrogate(s): Never completed. Documented care wishes: Never completed. . Objective Vital Signs Date Time Temp Pulse Resp B/P (MAP) Pulse Ox O2 Delivery O2 Flow Rate FiO2 02/05/18 07:39 100 40 02/05/18 06:00 65 02/05/18 04:26 100 40 02/05/18 04:00 64 02/05/18 04:00 40 02/05/18 04:00 98.7 64 14 106/59 (75) 100 02/05/18 02:00 64 02/05/18 00:20 100 40 02/05/18 00:00 98.3 65 14 114/66 (82) 100 02/05/18 00:00 63 02/05/18 00:00 40 02/04/18 22:00 62 02/04/18 20:42 66 115/65 02/04/18 20:00 98 Mechanical Ventilator 40 02/04/18 20:00 66 02/04/18 20:00 98.7 66 14 119/69 (86) 95 02/04/18 20:00 40 02/04/18 19:47 95 40 02/04/18 18:00 67 02/04/18 16:00 98.7 65 14 107/63 (78) 95 02/04/18 16:00 40 02/04/18 16:00 65 02/04/18 15:22 96 40 02/04/18 14:33 40 02/04/18 14:00 64 02/04/18 12:00 64 02/04/18 12:00 40 02/04/18 12:00 98.4 64 14 96/59 (71) 96 02/04/18 11:03 97 40 Intake & Output 02/05/18 02/05/18 07:00 19:00 Intake Total 1325 ml Output Total 550 ml Balance 775 ml IV Total 1325 ml Output Urine Total 400 ml Gastric Drainage Total 150 ml # Bowel Movements 0 Physical Exam CONSTITUTIONAL/GENERAL: This is an adequately nourished patient, intubated, sedated in no apparent distress. TUBES/LINES/DRAINS: ETT, OGT, N, left subclavian central line, right ACF PIV, [place] catheter NECK: Orally intubated. CARDIOVASCULAR: Regular rate and rhythm without murmurs, gallops, or rubs. No JVD. Peripheral pulses symmetric. RESPIRATORY/CHEST: Symmetric, unlabored respirations. Clear to auscultation. Breath sounds equal bilaterally. No wheezes, rales, or rhonchi. GASTROINTESTINAL: Abdomen soft, nondistended. No hepato-splenomegaly, or palpable masses. Bowel sounds present. GENITOURINARY: Without palpable bladder distension. MUSCULOSKELETAL: 1+ left lower extremity edema with ecchymosis seen on left foot. Right lower extremity with trace edema, discoloration to toes and plantar surface NEUROLOGICAL: Intubated, sedated. Pupils 4 mm, equal, sluggishly reactive, no nystagmus noted. No response to noxious stimuli PSYCHIATRIC: Lightly sedated. . Diagnostic Tests Laboratory Laboratory Tests Test 02/03/18 03:50 02/03/18 04:00 02/03/18 05:00 02/03/18 07:38 Lactic Acid Level 1.9 mmol/L (0.4-2.0) Urine Color YELLOW (YELLW/STRAW) Urine Turbidity HAZY (CLEAR) Urine pH 5.5 (5.0-8.5) Urine Specific [place] 1.036 (1.002-1.035) Urine Protein 30 mg/dL (NEG-TRACE) Urine Glucose (UA) NEG mg/dL (NEG) Urine Ketones NEG mg/dL (NEG) Urine Occult Blood NEG (NEG) Urine Nitrite NEG (NEG) Urine Bilirubin NEG (NEG) Urine Urobilinogen 2.0 MG/DL (LESS THAN Urine Leukocyte Esterase TRACE (NEG) Urine RBC 10 /hpf (0-3) Urine WBC 15 /hpf (0-5) Urine Squamous Epithelial Cells 1 /hpf (0-5) Urine Amorphous Sediment RARE Urine Bacteria FEW /hpf (NONE) Urine Mucus FEW /lpf (OCC) Microscopic Urinalysis Comment CATH-CULTURE IND Blood Urea Nitrogen 8 MG/DL (7-18) Creatinine 0.46 MG/DL (0.50-1.00) Random Glucose 119 MG/DL (74-106) Total Protein 5.4 GM/DL (6.4-8.2) Calcium Level 7.1 MG/DL (8.5-10.1) Sodium Level 140 MEQ/L (136-145) Potassium Level 3.3 MEQ/L (3.5-5.1) Chloride Level 109 MEQ/L (98-107) Carbon Dioxide Level 19.7 MEQ/L (21.0-32.0) Anion Gap 11 MEQ/L (5-15) Estimat Glomerular Filtration Rate 135 ML/MIN (>89) Protein Corrected Calcium 8.0 MG/DL (8.5-10.1) Phenytoin (Dilantin) Level 9.6 MCG/ML (10.0-20.0) Phenobarbital Level 23.1 MCG/ML (15.0-40.0) White Blood Count 9.8 TH/MM3 (4.0-11.0) Red Blood Count 2.17 MIL/MM3 (4.00-5.30) Hemoglobin 6.8 GM/DL (11.6-15.3) Hematocrit 19.9 % (35.0-46.0) Mean Corpuscular Volume 91.9 FL (80.0-100.0) Mean Corpuscular Hemoglobin 31.2 PG (27.0-34.0) Mean Corpuscular Hemoglobin Concent 33.9 % (32.0-36.0) Red Cell Distribution Width 14.9 % (11.6-17.2) Platelet Count 139 TH/MM3 (150-450) Mean Platelet Volume 7.8 FL (7.0-11.0) Test 02/03/18 13:28 02/03/18 17:43 02/04/18 04:25 02/04/18 16:30 Lactic Acid Level 3.3 mmol/L (0.4-2.0) 2.3 mmol/L (0.4-2.0) White Blood Count 10.3 TH/MM3 (4.0-11.0) Red Blood Count 3.47 MIL/MM3 (4.00-5.30) Hemoglobin 10.8 GM/DL (11.6-15.3) Hematocrit 30.9 % (35.0-46.0) Mean Corpuscular Volume 88.9 FL (80.0-100.0) Mean Corpuscular Hemoglobin 31.0 PG (27.0-34.0) Mean Corpuscular Hemoglobin Concent 34.9 % (32.0-36.0) Red Cell Distribution Width 14.5 % (11.6-17.2) Platelet Count 122 TH/MM3 (150-450) Mean Platelet Volume 9.2 FL (7.0-11.0) Hematology Comments Blood Urea Nitrogen 13 MG/DL (7-18) Creatinine 0.50 MG/DL (0.50-1.00) Random Glucose 124 MG/DL (74-106) Calcium Level 7.7 MG/DL (8.5-10.1) Sodium Level 143 MEQ/L (136-145) Potassium Level 3.9 MEQ/L (3.5-5.1) Chloride Level 109 MEQ/L (98-107) Carbon Dioxide Level 19.3 MEQ/L (21.0-32.0) Anion Gap 15 MEQ/L (5-15) Estimat Glomerular Filtration Rate 123 ML/MIN (>89) Vancomycin Level Trough 24.1 MCG/ML (5.0-10.0) Test 02/05/18 03:50 White Blood Count 11.2 TH/MM3 (4.0-11.0) Red Blood Count 2.95 MIL/MM3 (4.00-5.30) Hemoglobin 9.1 GM/DL (11.6-15.3) Hematocrit 26.6 % (35.0-46.0) Mean Corpuscular Volume 90.2 FL (80.0-100.0) Mean Corpuscular Hemoglobin 30.9 PG (27.0-34.0) Mean Corpuscular Hemoglobin Concent 34.2 % (32.0-36.0) Red Cell Distribution Width 14.9 % (11.6-17.2) Platelet Count 171 TH/MM3 (150-450) Mean Platelet Volume 8.7 FL (7.0-11.0) Blood Urea Nitrogen 16 MG/DL (7-18) Creatinine 0.48 MG/DL (0.50-1.00) Random Glucose 102 MG/DL (74-106) Calcium Level 8.0 MG/DL (8.5-10.1) Sodium Level 143 MEQ/L (136-145) Potassium Level 3.9 MEQ/L (3.5-5.1) Chloride Level 110 MEQ/L (98-107) Carbon Dioxide Level 19.7 MEQ/L (21.0-32.0) Anion Gap 13 MEQ/L (5-15) Estimat Glomerular Filtration Rate 129 ML/MIN (>89) Random Vancomycin Level 26.0 COMMENT . Result Diagram: 02/05/18 03502/05/18 035 Microbiology Microbiology Date/Time Source Procedure Growth Status 02/03/18 03:50 Blood Peripheral Aerobic Blood Culture - Preliminary NO GROWTH IN 1 DAY Resulted 02/03/18 03:50 Blood Peripheral Anaerobic Blood Culture - Preliminary NO GROWTH IN 1 DAY Resulted 02/03/18 03:38 Blood Peripheral Aerobic Blood Culture - Preliminary NO GROWTH IN 1 DAY Resulted 02/03/18 03:38 Blood Peripheral Anaerobic Blood Culture - Preliminary NO GROWTH IN 1 DAY Resulted 02/03/18 04:00 Sputum Endotracheal Gram Stain - Final Complete 02/03/18 04:00 Sputum Culture - Final Staphylococcus Aureus Complete 02/03/18 04:00 Urine Catheterized Urine Urine Culture - Preliminary IMMATURE GROWTH - REINCUBATE Resulted Imaging Last Impressions Chest X-Ray 02/05/18 0400 Signed Impressions: Service Date/Time: Monday, February 05, 2018 04:42 - CONCLUSION: Left basilar consolidation. Tate Diez MD Abdomen X-Ray 02/02/18 0600 Signed Impressions: Service Date/Time: Friday, February 02, 2018 02:55 - CONCLUSION: Nonspecific bowel gas pattern. Parminder Gonzalez MD Head CT 02/01/18 0800 Signed Impressions: Service Date/Time: Thursday, February 01, 2018 13:16 - CONCLUSION: Multifocal areas of increased hypodensity with mass effect including the surgical site left frontal region, and bilateral temporal/parietal/ occipital regions. The findings suggest multifocal infarctions. Interval development of 6 mm midline shift towards the right and effacement of the left occipital horn and left frontal horn. Otis Huff MD Foot X-Ray 01/29/18 0000 Signed Impressions: Service Date/Time: Monday, January 29, 2018 20:36 - CONCLUSION: 1. No acute findings. Andrey Pearson MD Head CTA 01/25/18 0000 Signed Impressions: Service Date/Time: Thursday, January 25, 2018 17:59 - CONCLUSION: No acute vascular findings Tommie Solis MD Brain MRI 01/24/18 0000 Signed Impressions: Service Date/Time: December 10:18 - CONCLUSION: Large enhancing mass in the upper left frontal lobe as well as dural enhancement along the base of the skull anterior midline. Vern Boo MD . Procedures 01/25/2018: Bifrontal craniotomy for resection of left parafalcine meningioma, bilateral cribriform plate-planum sphenoidale meningioma 01/25/2018: Continued intubation status post surgery. 01/26/2018: Left subclavian central line placement 01/26/2018: Right femoral arterial catheter placement . Assessment and Plan Disease Oriented Problem List: (1) Brain mass (2) Confusion (3) Agitation Symptom Scale: (1) Encephalopathy (2) Seizures Pertinent Non-Medical Issues Psychosocial:She was born in [place] and moved to [place] in the mid s. She was never and has no children. 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 Spiritual: Spiritual in her own way but not associated with any organized samaritan. Legal: Pending psychiatry consultation to determine capacity to make decisions. Ethical issues impacting care: Admitted under ex parte court order. . Important Contacts Sister: Karla Keller DCF camouflage specialist, Chelsey Bourgeois . Prognosis Her prognosis is guarded. It is unknown whether her intermittent confusion is secondary to baseline dementia or brain masses. She has been brought in under court order twice in the last month, once under a [place] act, the second 1 under an ex parte order. She has 2 very large masses in her brain, thought to be meningiomas, and is awaiting evaluation by neurosurgery to determine whether surgery is appropriate and if so when it would be scheduled. With surgery, she is at risk for surgical complications and postoperative deficits, without surgery she is at risk for further complications and decline. . Code Status: No Code Plan PLAN: Legal decision maker: She is currently not capacitated as she is intubated and sedated. Per [place] statutes, her sister Karla Keller would be her healthcare decision maker. Goals: Aggressive at this time. CODE STATUS: FULL CODE SYMPTOMS: * Encephalopathy: She is status post craniotomy and electroencephalogram is showing right frontal slowing, no seizures. CT of the head showed multiple infarctions, pending MRI for further delineation. No significant neurological recovery at this time. Sister considering withdrawal due to poor prognosis, poor recovery to honor her sister's wishes that she did not wish to live impaired. * Seizures: She is currently on phenobarbital, propofol, Keppra and Cerebyx. No further seizures at this time per neurology's note. Remains on seizure precautions. Palliative care will continue to follow the patient during hospital course as condition evolves, to assist patient/decision-maker with understanding of their medical conditions, weighing benefits/burdens of treatment options, for clarification of goals of treatment. Additionally will assist with any symptoms of palliative concern. . Attestation To help prompt me to consider important information that might be impacting today's encounter and assessment, information from prior notes written by myself or my colleagues may have been "brought forward" into today's note. My signature on this note, however, is an attestation that I personally performed the exam, history, and/or decision-making noted today, and, unless otherwise indicated, the interactions with patient, family, and staff as well as the review of records all occurred today. I also attest that the listed assessment and stated plan reflect my best clinical judgment today based on the combination of historical information, prior notes, and today's exam/ interactions. When time spent is documented, it refers only to time spent today by the signer, or if indicated, combined time spent today by collaborating physician/nurse practitioner. . Kassi Tang Feb 05, 2018 10:17
--- NOTE | 2018-02-05 11:21 | HHI.NSPN ---
(Js Nj) History Chief Complaint: Unable to obtain due to patient's clinical condition. (ClemJs) Interval History 01/18: This is a 67-year-old female patient with history of a previous brain mass for which she underwent evaluation. She was brought today to the emergency room after court order because she became aggressive and hostile at home, the patient lives with her mother, who has Alzheimer disease. She has been fighting with her sister and now she is being brought for medical evaluation and psychiatric evaluation. The patient reports that she was previously seen because of a brain tumor and she still has not decided what to do with it. 01/19: Patient history of brain tumor. 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 01/23: The patient is in the bathroom when seen. She is assisted up from the commode and uses a walker to ambulate back to her bed where she sits on the edge of it. She denies any headache or dizziness. She does state that her vision is off but she is not able to describe it any further. She has pain to the right elbow from a fall, otherwise she has no pain to the extremities. She denies any numbness or tingling to the extremities. She does have some difficulty finding the correct word she wants to use. No sensorimotor deficits are noted. 01/24: When seen this afternoon the patient is awake and alert talking with the Refinery Operator Coking. She does endorse a slight headache this morning but denies any dizziness, visual problems or nausea. She does have some right elbow and left foot pain. She also says that she hurt both knees. Otherwise she has no pain into the extremities and denies any numbness or tingling to them. There is no change in her neuro exam from yesterday. 01/25: The patient went to the operating room for a bifrontal craniotomy for resection of a left parafalcine meningioma and a bilateral cribriform plate- planum sphenoidale meningioma. Post-operatively she was transferred to [facility] for further care and monitoring. 01/26: This morning the patient remains intubated and mechanically ventilated. She is sedated with propofol. A nicardipine drip is infusing for blood pressure control. She did withdraw the right hand and both feet to noxious stimulation upon examination. 01/27: The Accounting Generalist reported that the patient was having a subclinical seizure seen on the EEG this morning. When the patient was seen the amusement park entertainer had just completed the EEG and said the patient was having seizures to the right frontal. After being evaluated the patient was noted to have twitching of the first and second digits of the right hand briefly. She remains obtunded and is sedated with propofol. She is also still intubated and mechanically ventilated. She did move both feet to noxious stimulation. 01/28: No seizure activity noted when seen this morning. She continues to be obtunded but maximally sedated with propofol. She is still intubated and mechanically ventilated. She moved only the lower extremities slightly to local noxious stimulation and had partial left eye opening with central noxious stimulation. She was evaluated by Neurology yesterday who adjusted her antiepileptic medication. Another EEG is to be done this morning. 01/29: Repeat EEG done yesterday with right hemisphere slowing. When seen she is lethargic. She is still intubated and mechanically ventilated. The propofol is infusing for sedation. With sedation held she did partially open her eyes and responded to noxious stimulation to the lower extremities only. There is no significant change in her exam. 01/30: The patient's sedation and fentanyl have been held for a while prior to her being seen. She remains obtunded. She continues to be intubated and mechanically ventilated. She had no eye opening to stimulation. She did have some bilateral foot flexion with extension of the right knee to noxious stimulation. Her pupils did appear sluggish. Bilateral nystagmus is noted. 01/31: When seen this morning the patient is obtunded and having a continuous EEG. Nursing did report that the patient was started on phenobarbital yesterday and her fosphenytoin was adjusted. She is also on levetiracetam as well for the seizures. Her propofol is infusing at the maximum dose. She had slight withdrawal of the lower extremities to noxious stimulation upon examination which is the same as what Nursing said the patient did for her. No nystagmus noted. 04/06: This morning the patient is still obtunded. She does have propofol and midazolam infusing for sedation. She continues to be intubated and mechanically ventilated. With her sedation held for several minutes she has slight withdrawal /flexion of the lower extremities. No response with the upper extremities. EEG not attached to patient but Nursing does say she is to be reattached again for continuous EEG monitoring. 02/02: Pt sedated on Diprivan and Versed. She does not open her eyes or follow commands. 02/03: Patient is sedated on Diprivan and Versed. She does not open her eyes or follow commands. Pupils are 3 mm bilaterally. She remains intubated. 02/04: The patient is obtunded when seen this morning. She is on propofol, which has been decreased, and midazolam. She continues to be intubated and mechanically ventilated. There is no response to any stimulation. Yesterday afternoon the patient become hypotensive. She is now on a vasopressor for blood pressure support. She also spiked a temperature to 103.1 in the afternoon as well. 02/05: When seen the patient had been off sedation for a while per Nursing. She is still intubated and mechanically ventilated. There was no response to any stimulation. She remains on a vasopressor. (Js Nj) System Review Comments Unable to obtain due to patient's clinical condition. (Js Nj) Exam Results 02/03/18 02/03/18 02/04/18 02/04/18 02/05/18 02/05/18 06: 18:00 06:00 18: 06: 18:00 Intake Total 1195 ml 1391 ml 2238 ml 200 ml 1325 ml Output Total 1870.0 ml 1840 ml 4175 ml 550 ml Balance -675.0 ml -449 ml 2238 ml -3975 ml 775 ml IV Total 1050 ml 1108 ml 1248 ml 1325 ml Tube Feeding 95 ml 83 ml Packed Cells 800 ml Blood Product IV Normal Saline Flush 190 ml Tube Irrigant 50 ml 200 ml 200 ml Output Urine Total 1450 ml 1200 ml 1225 ml 400 ml Gastric Drainage Total 640 ml 2950 ml 150 ml Tube Feeding Residual Discard 420.0 ml # Bowel Movements 0 3 1 0 Vital Signs Date Time Temp Pulse Resp B/P (MAP) Pulse Ox O2 Delivery O2 Flow Rate FiO2 02/05/18 09:50 100 40 02/05/18 09:50 40 02/05/18 07:39 100 40 02/05/18 06:00 65 02/05/18 04:26 100 40 02/05/18 04:00 64 02/05/18 04:00 40 02/05/18 04:00 98.7 64 14 106/59 (75) 100 02/05/18 02:00 64 02/05/18 00:20 100 40 02/05/18 00:00 98.3 65 14 114/66 (82) 100 02/05/18 00:00 63 02/05/18 00:00 40 02/04/18 22:00 62 02/04/18 20:42 66 115/65 02/04/18 20:00 98 Mechanical Ventilator 40 02/04/18 20:00 66 02/04/18 20:00 98.7 66 14 119/69 (86) 95 02/04/18 20:00 40 02/04/18 19:47 95 40 02/04/18 18:00 67 02/04/18 16:00 98.7 65 14 107/63 (78) 95 02/04/18 16:00 40 02/04/18 16:00 65 02/04/18 15:22 96 40 02/04/18 14:33 40 02/04/18 14:00 64 02/04/18 12:00 64 02/04/18 12:00 40 02/04/18 12:00 98.4 64 14 96/59 (71) 96 02/04/18 11:03 97 40 02/04/18 10:00 65 02/04/18 08:00 98.5 67 14 106/57 (73) 100 02/04/18 08:00 67 02/04/18 08:00 40 02/04/18 07:43 99 40 02/04/18 07:00 100 Mechanical Ventilator 40 02/04/18 06:00 66 02/04/18 04:00 98.8 68 14 141/66 (91) 98 02/04/18 04:00 40 02/04/18 04:00 68 02/04/18 03:41 98 40 02/04/18 02:00 69 02/04/18 00:25 100 40 02/04/18 00:00 98.5 75 16 123/64 (83) 98 02/04/18 00:00 40 02/04/18 00:00 75 02/03/18 22:00 99.5 72 14 142/65 95 02/03/18 22:00 72 02/03/18 22:00 72 132/66 02/03/18 21:42 99.3 72 14 146/65 98 02/03/18 21:40 99.3 70 14 146/65 98 02/03/18 20:10 66 149/75 02/03/18 20:00 40 02/03/18 20:00 98.9 66 14 149/75 98 02/03/18 20:00 63 02/03/18 20:00 98.8 66 14 149/75 (99) 98 02/03/18 19:43 98.8 67 14 155/81 99 02/03/18 19:10 98 40 02/03/18 19:10 99 Mechanical Ventilator 40 02/03/18 19:05 121/62 (81) 02/03/18 19:00 98.7 70 14 134/70 (91) 98 02/03/18 18:55 119/64 (82) 02/03/18 18:50 120/58 (78) 02/03/18 18:45 123/62 (82) 02/03/18 18:41 122/62 (82) 02/03/18 18:36 115/57 (76) 02/03/18 18:30 117/60 (79) 02/03/18 18:30 117/60 02/03/18 18:25 119/60 02/03/18 18:20 134/57 (82) 02/03/18 18:15 124/60 (81) 02/03/18 18:10 122/60 (80) 02/03/18 18:10 122/60 02/03/18 18:06 119/57 (77) 02/03/18 18:00 73 14 122/59 (80) 99 02/03/18 18:00 73 02/03/18 17:55 74 120/58 (78) 02/03/18 17:50 117/58 02/03/18 17:45 99.4 112/56 (74) 02/03/18 17:45 112/56 02/03/18 17:35 74 14 104/53 (70) 100 02/03/18 17:35 104/53 02/03/18 17:30 113/55 (74) 02/03/18 17:10 102/53 02/03/18 17:10 100.7 102/53 (69) 02/03/18 17:00 114/56 (75) 02/03/18 16:45 114/56 (75) 02/03/18 16:45 114/56 02/03/18 16:30 107/54 (71) 02/03/18 16:30 107/54 02/03/18 16:15 95/62 (73) 02/03/18 16:03 96 40 02/03/18 16:01 96/51 02/03/18 16:01 100.1 88 14 96/51 (66) 98 02/03/18 16:00 97 02/03/18 16:00 40 02/03/18 15:30 105/57 (73) 02/03/18 15:25 116/59 (78) 02/03/18 15:20 132/60 (84) 02/03/18 15:15 110/58 (75) 02/03/18 15:10 103.1 76 106/54 (71) 02/03/18 15:01 89 83/49 02/03/18 15:00 76 14 102/60 (74) 98 02/03/18 14:00 102.2 95/54 (68) 02/03/18 14:00 91 02/03/18 13:50 94/48 (63) 02/03/18 13:30 87/50 (62) 02/03/18 13:20 85/49 (61) 02/03/18 13:10 90 82/47 (59) 02/03/18 12:12 99 40 02/03/18 12:00 89 02/03/18 12:00 99.2 86 14 98/51 (67) 02/03/18 12:00 40 02/03/18 10:00 85 02/03/18 08:00 40 02/03/18 08:00 98.9 84 14 99/55 (70) 97 02/03/18 08:00 97 Mechanical Ventilator 40 4/8/18 08:00 85 02/03/18 07:40 97 40 02/03/18 06:12 100.0 02/03/18 06:00 85 02/03/18 04:00 101.0 81 14 96/51 (66) 98 Arterial Line 02/03/18 04:00 99 40 02/03/18 04:00 40 02/03/18 04:00 81 02/03/18 03:00 103.0 91 14 83/52 (62) 98 83/52 (62) 02/03/18 02:00 91 02/03/18 00:50 99 40 02/03/18 00:00 91 02/03/18 00:00 40 02/03/18 00:00 102.3 91 14 106/52 (70) 98 02/02/18 22:00 87 02/02/18 20:00 80 02/02/18 20:00 97 Mechanical Ventilator 40 02/02/18 20:00 99.6 80 14 112/58 (76) 97 02/02/18 20:00 40 02/02/18 19:40 96 40 02/02/18 18:42 100.0 02/02/18 18:11 85 02/02/18 16:52 97 40 02/02/18 16:00 40 02/02/18 16:00 101.7 91 14 117/95 (102) 98 02/02/18 16:00 87 02/02/18 14:00 87 02/02/18 12:14 40 02/02/18 12:00 87 02/02/18 12:00 99.1 87 14 131/63 (85) 99 02/02/18 11:59 99 40 (Js Nj) Physical Examination GENERAL: Comatose, intubated & mechanically ventilated. No sedation infusing. No apparent distress. On phenylephrine at 30 mcg/min for blood pressure support. HEENT: Normocephalic. Bilateral craniotomy surgical incision well-approximated w /karolina & DIANN insertion site w/o any evident drainage, erythema or streaking. Right pupil 3 mm & left 2 mm sluggish, no nystagmus. Orally intubated, OGT. MUSCULOSKELETAL: No response to any stimulation. Distal extremities becoming dusky. Left foot ecchymotic. NEUROLOGICAL: Comatose, not sedated. Nonverbal, orally intubated. No eye opening to any stimulation. Right pupil 3 mm & left 2 mm sluggish. No nystagmus noted. Did not follow any commands. No motor response to any stimulation. (Js Nj) Lab, Micro, Other Results Recent Impressions Chest X-Ray 02/05/18 0400 Signed Impressions: Service Date/Time: Monday, February 05, 2018 04:42 - CONCLUSION: Left basilar consolidation. Tate Diez MD Chest X-Ray 02/03/18 0000 Signed Impressions: Service Date/Time: Saturday, February 03, 2018 03:29 - CONCLUSION: No significant interval change. Persistent left lower lobe consolidation versus atelectasis and small pleural effusion. Parminder Gonzalez MD Laboratory Tests Test 02/03/18 03:50 02/03/18 04:00 02/03/18 05:00 02/03/18 07:38 Lactic Acid Level 1.9 mmol/L Urine Color YELLOW Urine Turbidity HAZY Urine pH 5.5 Urine Specific [place] 1.036 Urine Protein 30 mg/dL Urine Glucose (UA) NEG mg/dL Urine Ketones NEG mg/dL Urine Occult Blood NEG Urine Nitrite NEG Urine Bilirubin NEG Urine Urobilinogen 2.0 MG/DL Urine Leukocyte Esterase TRACE Urine RBC 10 /hpf Urine WBC 15 /hpf Urine Squamous Epithelial Cells 1 /hpf Urine Amorphous Sediment RARE Urine Bacteria FEW /hpf Urine Mucus FEW /lpf Microscopic Urinalysis Comment CATH-CULTURE IND Blood Urea Nitrogen 8 MG/DL Creatinine 0.46 MG/DL Random Glucose 119 MG/DL Total Protein 5.4 GM/DL Calcium Level 7.1 MG/DL Sodium Level 140 MEQ/L Potassium Level 3.3 MEQ/L Chloride Level 109 MEQ/L Carbon Dioxide Level 19.7 MEQ/L Anion Gap 11 MEQ/L Estimat Glomerular Filtration Rate 135 ML/MIN Protein Corrected Calcium 8.0 MG/DL Phenytoin (Dilantin) Level 9.6 MCG/ML Phenobarbital Level 23.1 MCG/ML White Blood Count 9.8 TH/MM3 Red Blood Count 2.17 MIL/MM3 Hemoglobin 6.8 GM/DL Hematocrit 19.9 % Mean Corpuscular Volume 91.9 FL Mean Corpuscular Hemoglobin 31.2 PG Mean Corpuscular Hemoglobin Concent 33.9 % Red Cell Distribution Width 14.9 % Platelet Count 139 TH/MM3 Mean Platelet Volume 7.8 FL Test 02/03/18 13:28 02/03/18 17:43 02/04/18 04:25 02/04/18 16:30 Lactic Acid Level 3.3 mmol/L 2.3 mmol/L White Blood Count 10.3 TH/MM3 Red Blood Count 3.47 MIL/MM3 Hemoglobin 10.8 GM/DL Hematocrit 30.9 % Mean Corpuscular Volume 88.9 FL Mean Corpuscular Hemoglobin 31.0 PG Mean Corpuscular Hemoglobin Concent 34.9 % Red Cell Distribution Width 14.5 % Platelet Count 122 TH/MM3 Mean Platelet Volume 9.2 FL Hematology Comments Blood Urea Nitrogen 13 MG/DL Creatinine 0.50 MG/DL Random Glucose 124 MG/DL Calcium Level 7.7 MG/DL Sodium Level 143 MEQ/L Potassium Level 3.9 MEQ/L Chloride Level 109 MEQ/L Carbon Dioxide Level 19.3 MEQ/L Anion Gap 15 MEQ/L Estimat Glomerular Filtration Rate 123 ML/MIN Vancomycin Level Trough 24.1 MCG/ML Test 02/05/18 03:50 White Blood Count 11.2 TH/MM3 Red Blood Count 2.95 MIL/MM3 Hemoglobin 9.1 GM/DL Hematocrit 26.6 % Mean Corpuscular Volume 90.2 FL Mean Corpuscular Hemoglobin 30.9 PG Mean Corpuscular Hemoglobin Concent 34.2 % Red Cell Distribution Width 14.9 % Platelet Count 171 TH/MM3 Mean Platelet Volume 8.7 FL Blood Urea Nitrogen 16 MG/DL Creatinine 0.48 MG/DL Random Glucose 102 MG/DL Calcium Level 8.0 MG/DL Sodium Level 143 MEQ/L Potassium Level 3.9 MEQ/L Chloride Level 110 MEQ/L Carbon Dioxide Level 19.7 MEQ/L Anion Gap 13 MEQ/L Estimat Glomerular Filtration Rate 129 ML/MIN Random Vancomycin Level 26.0 COMMENT (Js Nj) Medical Decision Making Impression and Plan Impression: 1. Large frontal neoplasm noted on CT scan and previous MRI imaging. 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 Postoperative Diagnosis: (1) Meningioma, multiple (2) Parasagittal meningioma 1. Recurrent left parafalcine meningioma 2. 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 On levetiracetam, fosphenytoin & phenobarbital for seizures. On vasopressor for blood pressure support. Afebrile the past 24 hrs. SBP intermittently below desired range. Reviewed labs for today. Leukocytosis. Drop in haemoglobin level. Resolution of thrombocytopenia. Sodium 143. Blood cultures w/no growth x2 days. Sputum culture w/Staphylococcus aureus on final . Urine culture needs to be reincubated. CT brain demonstrates multifocal areas (left frontal & bilateral temporal, parietal & occipital regions) of increased hypodensity w/mass effect suggestive of multifocal infarctions. Interval development of 6 mm left-to- right midline shift & effacement of the left occipital & frontal horns. EEG w/right frontocentral periodic lateralized epileptiform discharge -like activity c/w seizure focus & focal abnormality in the right frontocentral head region. DIANN drain d/c'd . POD #11 () s/p: Bifrontal craniotomy for resection 1. Left parafalcine meningioma 2. Bilateral cribriform plate -Planum sphenoidale meningioma 3. Use of frameless intraoperative stereotactic navigation for planning of the incision site and bone flap and resection of the parafalcine and frontal skull base neoplasm. Plan: Primary management per Hospitalist. Critical care management per Accounting Generalist. Seizure management per Neurology. Neuro checks. Stat CT brain for any decline in neuro status. Maintain SBP between 110 and 140 mm Hg. MRI brain w/o & w/contrast. Appreciate Accounting Generalist's & Neurology's assistance in managing this critically ill patient. Appreciate Palliative's input & assistance. (Js Nj) Attending Statement The exam, history, and the medical decision-making described in the above note were completed with the assistance of the mid-level provider. I reviewed and agree with the findings presented. I attest that I had a [id number] encounter with the patient on the same day, and personally performed and documented my assessment and findings in the medical record. Patient remains intubated, obtunded, minimally responsive deep pain upper extremities on examination 02/05/2018. Remains on anticonvulsant therapy. Palliative care notes reviewed. Call to patient's sister by the undersigned-no answer. Patient sister has requested withdrawal of support. Given the patient's prolonged lack of significant neurologic response postoperatively and multifocal infarcts versus global ischemic changes noted on CT scan, prognosis for meaningful recovery unfortunately appears very poor. (Tolu Herring MD) Js Nj Feb 05, 2018 11:21 Tolu Herring MD Feb 05, 2018 16:18
--- NOTE | 2018-02-05 12:39 | HHI.CCPN ---
Subjective Remarks/Hospital Course 67-year-old female patient with history of a previous brain mass for which she underwent evaluation. She was after court order because she became aggressive and hostile at home. The patient lives with her mother, who has Alzheimer disease. The CT of the head performed in the emergency department showed an Extra-axial left frontal mass again seen with left to right midline shift, likely related to meningioma. She has undergone another tumor resection by Dr. Herring today. The patient remains postprocedure intubated, also the repeated postoperative CAT scan of the head show significant amount of brain edema. 01/26: FiO2 remains at 75%. Small left pleural effusion/atelectasis noted. Remains on 3% at [address] brain revealed stable cerebral edema with stable hemorrhage. Sedated on propofol drip at 40 mcg/kg/min 01/27: FiO2 down to 50%. Withdraws to pain bilateral upper and lower extremities. Currently on propofol drip at 45 mcg/kg/min. Tolerating tube feeds. 01/28: FiO2 down to 40%. Opens eyes to voice but currently not following commands. No tremor activity noted. Repeat EEG performed but results are pending. Currently levetiracetam and 1000 mg IV 3 times daily with phenytoin level at therapeutic levels 01/29: T-max 99. Currently afebrile. Noted right hemispheric slowing/sharps in the right central/frontal region. Currently levetiracetam thousand milligrams twice daily and fosphenytoin 100 mg 3 times daily. Tolerating CPAP. Neurologically opens eyes to voice withdraws bilateral lower extremities. Intermittent tremors upper extremity 01/30: no neuro exam changes noted. nsgy noticed some facial twitching and repeat EEG ordered, but no change in baseline neuro exam. 01/31: ongoing seizure focus. phenobarb added by neurology. neurologic exam stable , but remains poor. 02/01: Resting comfortably in bed in no acute distress. Afebrile. Continues to have focal sharp activity on continuous EEG in the right frontal/central regions will bolus with midazolam 5 mg IV 1 now. No bowel movements 5 days. KUB yesterday shows no signs of ileus or obstructive type process. On trickle feeds at 10 cc an hour with residuals around 200 cc greenish 02/02: Continue TFs. On high dose versed and propofol for seizure control. 02/03: Fevers persists. Remove [place] and CVL. Culture and start broad abx coverage. Residual gastric 300 mls with trickle feeds. Hold for now, start motility med. 02/04: Color and perfusion much improved after transfusion last evening. Source of anemia unclear. Prognosis remains poor. Family considering withdrawal/DNR but they want her organs donated. Subjective 02/05: no improvements. family at bedside and want to pursue withdraw of care, which is appropriate. Objective Vital Signs Date Time Temp Pulse Resp B/P (MAP) Pulse Ox O2 Delivery O2 Flow Rate FiO2 02/05/18 09:50 100 40 02/05/18 06:00 65 02/05/18 04:00 98.7 14 106/59 (75) 02/04/18 20:00 Mechanical Ventilator Intake and Output 02/05/18 02/05/18 02/06/18 08:00 16:00 00:00 Intake Total 250 ml Output Total 550 ml Balance -300 ml Result Diagram: 02/05/18 0350 02/05/18 0350 Other Results Microbiology Date/Time Source Procedure Growth Status 02/03/18 04:00 Sputum Endotracheal Gram Stain - Final Complete 02/03/18 04:00 Sputum Culture - Final Staphylococcus Aureus Complete Imaging Last Impressions Chest X-Ray 01/28/18 0600 Signed Impressions: Service Date/Time: Sunday, January 28, 2018 03:50 - CONCLUSION: No significant interval change Tommie Solis MD Head CT 01/26/18 1220 Signed Impressions: Service Date/Time: Friday, January 26, 2018 13:48 - CONCLUSION: 1. Slight improvement in acute hemorrhage and edema in the frontal lobe since January 26 exam from earlier today with slightly less mass effect and midline shift. No new hemorrhage. Andrey Pearson MD Head CTA 01/25/18 0000 Signed Impressions: Service Date/Time: Thursday, January 25, 2018 17:59 - CONCLUSION: No acute vascular findings Tommie Solis MD Brain MRI 01/24/18 0000 Signed Impressions: Service Date/Time: December 10:18 - CONCLUSION: Large enhancing mass in the upper left frontal lobe as well as dural enhancement along the base of the skull anterior midline. Vern Boo MD Procedures Left subclavian CVL 01/[address] Baldwin Left radial A-line placed in OR 01/25 Disinhibition Score: 14.00 Aggression Score: 14.00 Lability Score: 14.00 Agitated Behavior Total Score: 14 Objective Remarks GENERAL: 67-year-old female currently orotracheally intubated SKIN: Warm and dry. No rash HEAD: Post bifrontal craniectomy with karolina intact, dry, clean. EYES: No scleral icterus. No injection or drainage. NECK: Supple, trachea midline. No JVD. CARDIOVASCULAR: Regular rate and rhythm. sinus. RESPIRATORY: equal chest rise. No accessory muscle use. GASTROINTESTINAL: Abdomen soft, non-tender, nondistended. MUSCULOSKELETAL: No significant peripheral edema. Ecchymosis to dorsal aspect left greater than right foot. Toes discolored. NEURO EXAM: Intubated. 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 1.8 parenchymal hemorrhage left temporal region. Neuro basilar cisterns. Central sulci are effaced. CT brain 01/26 - Stable he is ventricle hemorrhage and edema in the left frontal and left posterior temporal regions. Slight mass effect left to right shift of the third ventricle measuring 3 mm. No new hemorrhage is identified. There may be slightly less and edema in the frontal lobes on the previous study but the change is minimal. Evaluated preop by psychiatry Dr. Costa and deemed competent Continuous EEG Currently on propofol drip at 50 mcg/kg/min and midazolam drip at 6 mg an hour for seizure control. [place] goal RASS of -2 Daily sedation vacation when okay with Dr. Herrign Serial sodiums every 6 hours with serum serum osmolalities every 6 hours Remains on dexamethasone at 4 mg IV every 6 hours for brain mass. Management per neurosurgery Levetiracetam 1000 mg IV 3 times daily Phenobarbital 90 mg IV every 4 hours. Level 4/6 a.m. pending Currently fosphenytoin 100 mg IV every 6 hours. A.m. level 6 pending EEG 01/27 revealed sharps right frontal region. EEG 01/29 revealed right hemispheric sharps in the right frontal central region. EEG 01/31: Sharps right frontal/parietal region followed by neurology/Dr. Lockwood. Antiepileptics as above. CV: Hypertension Phenylephrine drip to maintain systolic blood pressure greater than 110 Written for nicardipine drip and labetalol/clonidine as needed to maintain systolic blood pressure less than 130 Previously on nifedipine 30 mg sustained release daily. Resp: Postoperative respiratory failure PRVC 18/11/02/39 Ventilator bundle Albuterol/ipratropium aerosols every 6 hours with albuterol aerosols every 2 hours as needed dyspnea Spontaneous breathing trials when clinically indicated Portable chest x-ray in a.m. 02/02 ABG/ pending -> alkalosis improving. GI: Constipation Hypoalbuminemia Tube feeding with Glucerna 1.5 goal 10 cc an hour. Nutrition recommended vital high-protein at 45 cc now. We will continue with hyperglycemia Lansoprazole 30 mg daily for GI prophylaxis Docusate sodium 100 mg twice daily/senna liquid 8.8 mg twice daily for bowel regimen Add polyethylene glycol 17 g twice daily and lactulose 30 cc 4 times daily. Mineral oil 30 cc 1. Methylnaltrexone 12 mg subcu 1 now. Glycerin suppository 1 now. Recheck KUB in a.m. 02/02 Check LFTs, amylase and lipase today. Erythromycin 200 mg every 8 hours. Holding metoclopramide in light of seizure activity Hold TFs due to high residual 02/03 : D/C [facility]: Hyperglycemia of critical illness/steroid induced Holding low-dose insulin detemir 15 units twice daily with high residuals. 2unit sliding scale insulin past 24 hours Sliding scale insulin/moderate regimen with Accu-Cheks every 4 hours to maintain euglycemia Novulog Renal: Creatinine currently within normal limits Monitor urine output Accurate I's and O's Heme: Normocytic anemia Monitor CBC daily. Follow trends ID: Monitor for signs and symptoms of infection FEN: MSK: Physical therapy evaluate and treat Access -Left subclavian CVL placed 01/25 -> d/c Prophylaxis -GI -lansoprazole -DVT -SCD/holding pharmacological prophylaxis in light of hemorrhage. Initiate when okay with neurosurgery Overall impression: Patient remains critically ill requiring seizure control and mechanical ventilation. Unstable neurological status. Unable to wean from ventilator. New fevers are concerning, sepsis workup in progress. Family would like to withdraw support soon, which is appropriate. very poor prognosis, unlikely to survive and minimal if any quality of life long-term. Marky Bravo MD Feb 05, 2018 12:39
[2018-02-05] MEDS ORDERED: LORazepam 2 MG/ML VIAL IV PUSH ONE ×2 (12:45→13:00)
[2018-02-05] MEDS ORDERED: HYOSCYAMINE 0.5 MG/ML AMP IV PUSH ONE (12:45)
[2018-02-05] MEDS ORDERED: fentaNYL DRIP 250 ML IV PRN (12:45)
[2018-02-05] MEDS ORDERED: MORPHINE SULFATE 4 MG/ML INJ IV PUSH PRN (13:15)
[2018-02-05] MEDS ORDERED: HYOSCYAMINE 0.5 MG/ML AMP IV PUSH PRN (13:15)
[2018-02-05] MEDS ORDERED: LORazepam 2 MG/ML VIAL IV PUSH PRN ×3 (13:15)
[2018-02-05] MEDS ORDERED: ACETAMINOPHEN 650 MG SUPP RECTAL PRN (13:15)
[2018-02-05] MEDS ORDERED: MORPHINE SULFATE 8 MG/ML INJ IV PUSH PRN (13:15)
[2018-02-05] MEDS ORDERED: BISACODYL 10 MG SUPP RECTAL PRN (13:15)
[2018-02-05] MEDS ORDERED: FUROSEMIDE 20 MG/2 ML VIAL IV PUSH PRN (13:15)
[2018-02-05] MEDS ORDERED: LORazepam 2 MG/ML VIAL IV PUSH SCH (16:00)
[2018-02-05] MEDS ORDERED: MORPHINE SULFATE 4 MG/ML INJ IV PUSH SCH (16:00)
--- NOTE | 2018-02-07 11:55 | HHI.DS ---
Summary Note Date of : Feb 05, 2018 Time Of : 1358 Admission Date Jan 18, 2018 at 16:50 Admitting Diagnosis brain mass, confusion, ex parte Diagnosis at Time of : (1) Brain mass ICD Code: G93.9 - Disorder of brain, unspecified Diagnosis: Principal Procedures Left subclavian CVL 01/[address] Baldwin Left radial A-line placed in OR 01/25 Brief History 67 years old female with history of brain mass followed by neurosurgery, and encephalopathy due to this, presented to the ED under extra take court order for psychiatry evaluation, according to the court order patient become aggressive and hostile toward her sister who initiated the court order. Patient lives with her mother and she has Alzheimer's disease. When I saw the patient she was aware and oriented to the place but not the time, she was able to recognize the situation that she is under take order court but she could not tell me the situation, she said I need to see the neurosurgeon to decide on my surgery. Patient thought it is 1966 then 2018. I discussed with the ED PA who consulted with the neurosurgeon who accepted to see the patient has a consult for further addressing her brain mass issue. In general patient is extremely poor historian to give a detailed history or review of system however she denied any of the potential complain I mentioned to her CBC/BMP: 02/05/18 0350 02/05/18 0350 Significant Findings Laboratory Tests Test 02/04/18 16:30 02/05/18 03:50 Vancomycin Level Trough 24.1 MCG/ML (5.0-10.0) White Blood Count 11.2 TH/MM3 (4.0-11.0) Red Blood Count 2.95 MIL/MM3 (4.00-5.30) Hemoglobin 9.1 GM/DL (11.6-15.3) Hematocrit 26.6 % (35.0-46.0) Creatinine 0.48 MG/DL (0.50-1.00) Calcium Level 8.0 MG/DL (8.5-10.1) Chloride Level 110 MEQ/L (98-107) Carbon Dioxide Level 19.7 MEQ/L (21.0-32.0) Imaging Last Impressions Chest X-Ray 01/28/18 0600 Signed Impressions: Service Date/Time: Sunday, January 28, 2018 03:50 - CONCLUSION: No significant interval change Tommie Solis MD Head CT 01/26/18 1220 Signed Impressions: Service Date/Time: Friday, January 26, 2018 13:48 - CONCLUSION: 1. Slight improvement in acute hemorrhage and edema in the frontal lobe since January 26 exam from earlier today with slightly less mass effect and midline shift. No new hemorrhage. Andrey Pearson MD Head CTA 01/25/18 0000 Signed Impressions: Service Date/Time: Thursday, January 25, 2018 17:59 - CONCLUSION: No acute vascular findings Tommie Solis MD Brain MRI 01/24/18 0000 Signed Impressions: Service Date/Time: December 10:18 - CONCLUSION: Large enhancing mass in the upper left frontal lobe as well as dural enhancement along the base of the skull anterior midline. Vern Boo MD Hospital Course 67-year-old female patient with history of a previous brain mass for which she underwent evaluation. She was after court order because she became aggressive and hostile at home. The patient lives with her mother, who has Alzheimer disease. The CT of the head performed in the emergency department showed an Extra-axial left frontal mass again seen with left to right midline shift, likely related to meningioma. She has undergone another tumor resection by Dr. Herring today. The patient remains postprocedure intubated, also the repeated postoperative CAT scan of the head show significant amount of brain edema. 01/26: FiO2 remains at 75%. Small left pleural effusion/atelectasis noted. Remains on 3% at [address] brain revealed stable cerebral edema with stable hemorrhage. Sedated on propofol drip at 40 mcg/kg/min /: FiO2 down to 50%. Withdraws to pain bilateral upper and lower extremities. Currently on propofol drip at 45 mcg/kg/min. Tolerating tube feeds. 01/28: FiO2 down to 40%. Opens eyes to voice but currently not following commands. No tremor activity noted. Repeat EEG performed but results are pending. Currently levetiracetam and 1000 mg IV 3 times daily with phenytoin level at therapeutic levels 01/29: T-max 99. Currently afebrile. Noted right hemispheric slowing/sharps in the right central/frontal region. Currently levetiracetam thousand milligrams twice daily and fosphenytoin 100 mg 3 times daily. Tolerating CPAP. Neurologically opens eyes to voice withdraws bilateral lower extremities. Intermittent tremors upper extremity 01/30: no neuro exam changes noted. nsgy noticed some facial twitching and repeat EEG ordered, but no change in baseline neuro exam. 01/31: ongoing seizure focus. phenobarb added by neurology. neurologic exam stable , but remains poor. 02/01: Resting comfortably in bed in no acute distress. Afebrile. Continues to have focal sharp activity on continuous EEG in the right frontal/central regions will bolus with midazolam 5 mg IV 1 now. No bowel movements 5 days. KUB yesterday shows no signs of ileus or obstructive type process. On trickle feeds at 10 cc an hour with residuals around 200 cc greenish 02/02: Continue TFs. On high dose versed and propofol for seizure control. 02/03: Fevers persists. Remove [place] and CVL. Culture and start broad abx coverage. Residual gastric 300 mls with trickle feeds. Hold for now, start motility med. 02/04: Color and perfusion much improved after transfusion last evening. Source of anemia unclear. Prognosis remains poor. Family considering withdrawal/DNR but they want her organs donated. 02/05: no improvements. family at bedside and want to pursue withdraw of care, which is appropriate. patient was withdrawn, made comfortable, and at 13: 58. Marky Bravo MD Feb 07, 2018 11:55
== END 2018-02-05 19:17 | disposition expired | DRG 25 ==
LOC: NEDAMB 12:55 → NEDA 16:50 → N05B 21:48 → N03B 01-25 08:29 → N03A 01-25 19:03
PROVIDERS: ADMIT Internal Medicine Critical Care Medicine; ATTEND Internal Medicine Critical Care Medicine
PROC: 00B10ZZ Excision of Cerebral Meninges, Open Approach (ICD-10-PCS; 2018-01-25)
PROC: 5A1955Z Respiratory Ventilation, Greater than 96 Consecutive Hours (ICD-10-PCS; 2018-01-25)
PROC: 0T9B70Z Drainage of Bladder with Drainage Device, Via Natural or Artificial Opening (ICD-10-PCS; 2018-01-25)
PROC: 00B10ZZ Excision of Cerebral Meninges, Open Approach (ICD-10-PCS; principal; 2018-01-25 08:31)
PROC: 0D9670Z Drainage of Stomach with Drainage Device, Via Natural or Artificial Opening (ICD-10-PCS; 2018-01-26)
PROC: 05H633Z Insertion of Infusion Device into Left Subclavian Vein, Percutaneous Approach (ICD-10-PCS; 2018-01-26)
PROC: 04HY32Z Insertion of Monitoring Device into Lower Artery, Percutaneous Approach (ICD-10-PCS; 2018-01-26)
PROC: 4A133B1 Monitoring of Arterial Pressure, Peripheral, Percutaneous Approach (ICD-10-PCS; 2018-01-26)
PROC: 4A133J1 Monitoring of Arterial Pulse, Peripheral, Percutaneous Approach (ICD-10-PCS; 2018-01-26)
PROC: 30233N1 Transfusion of Nonautologous Red Blood Cells into Peripheral Vein, Percutaneous Approach (ICD-10-PCS; 2018-02-03)
DX: D32.0 Benign neoplasm of cerebral meninges (principal); G93.6 Cerebral edema; G93.5 Compression of brain; J95.821 Acute postprocedural respiratory failure; I61.5 Nontraumatic intracerebral hemorrhage, intraventricular; I60.9 Nontraumatic subarachnoid hemorrhage, unspecified; G93.40 Encephalopathy, unspecified; E87.0 Hyperosmolality and hypernatremia; E87.1 Hypo-osmolality and hyponatremia; D69.6 Thrombocytopenia, unspecified; F05 Delirium due to known physiological condition; F03.91 Unspecified dementia, unspecified severity, with behavioral disturbance; R47.01 Aphasia; J98.11 Atelectasis; S50.311A Abrasion of right elbow, initial encounter; D64.9 Anemia, unspecified; F41.9 Anxiety disorder, unspecified; G40.901 Epilepsy, unspecified, not intractable, with status epilepticus; Z82.0 Family history of epilepsy and other diseases of the nervous system; S00.03XA Contusion of scalp, initial encounter; S90.32XA Contusion of left foot, initial encounter; S50.312A Abrasion of left elbow, initial encounter; X58.XXXA Exposure to other specified factors, initial encounter; Y93.9 Activity, unspecified; Y92.9 Unspecified place or not applicable; Y99.9 Unspecified external cause status; Z78.1 Physical restraint status; I10 Essential (primary) hypertension; Z51.5 Encounter for palliative care; F54 Psychological and behavioral factors associated with disorders or diseases classified elsewhere; E88.09 Other disorders of plasma-protein metabolism, not elsewhere classified; T38.0X5A Adverse effect of glucocorticoids and synthetic analogues, initial encounter; R73.9 Hyperglycemia, unspecified; D72.829 Elevated white blood cell count, unspecified; E83.39 Other disorders of phosphorus metabolism; E87.6 Hypokalemia; I95.9 Hypotension, unspecified; H55.00 Unspecified nystagmus; K59.00 Constipation, unspecified
CPT/HCPCS: 36430; 36556; 36600; 70450; 70496; 70552; 71045; 73620; 74018; 76937; 80048; 80053; 80076; 80184; 80185; 80202; 80307; 81001; 81003; 82150; 82805; 82948; 83605; 83690; 83735; 83930; 84100; 84132; 84155; 84295; 85007; 85025; 85027; 85610; 85730; 86403; 86850; 86900; 86901; 86920; 87040; 87070; 87077; 87086; 87147; 87186; 87205; 88305; 93005; 94002; 94003; 94640; 94664; 95819; A9579; C1713; C1781; J0131; J0690; J1100; J1170; J1580; J1815; J1940; J1953; J1956; J1980; J2060; J2212; J2250; J2310; J2370; J2405; J2543; J2560; J2710; J3010; J3370; J3480; J7030; J7040; J7050; J7060; J7120; J7613; J8540; P9016; Q2009; Q9967